=== PATIENT | female | born 1955 | race Caucasian/White ===

== ENCOUNTER 2017-09-23 11:52 | Outpatient (RCR) | payer OTHER, SELFPAY | END 2017-09-23 19:00 | LOC: PT 11:52 | PROVIDERS: Family Provider Family Medicine; PCP Family Medicine; Visit Provider Neurological Surgery | DX: R69 Illness, unspecified (principal) ==

== ENCOUNTER → 2017-11-30 10:29 | Outpatient (CLI) | payer OTHER, SELFPAY ==
--- NOTE | 2017-11-30 10:32 | HPBI_ITS ---
MAMMOGRAPHY - BILATERAL SCREENING REASON FOR EXAM: Female, 62 years old. Routine annual screening examination. PERTINENT HISTORY: Non-contributory. TECHNIQUE: Digital bilateral breast maria g (3D mammographic acquisition) in the CC and MLO projections. 2-D mediolateral oblique (MLO) and craniocaudad (CC) views of both breasts were obtained. CAD: Full Field Digital Mammography with Computer Added Detection was performed. COMPARISON: Comparison is made with prior study dated November 26, 2016 and October 09, 2015. FINDINGS: Breast Composition: There are scattered areas of fibroglandular density. There are no dominant masses or suspicious calcifications. No other significant abnormalities are identified. There has been no significant change since the prior study. HPBI/SCREENING MAMM (CAD), BILAT IMPRESSION: Stable bilateral screening mammogram. Yearly follow-up mammogram recommended. (A) ASSESSMENT CATEGORY: BIRADS Category 1: Negative. A letter regarding these results will be sent to the patient by the facility within 30 days. Approximately 10% of breast cancers are not detected by mammography. A normal mammogram should not delay biopsy of a clinically suspicious abnormality. [id number] Electronically Signed: Ej Brooks MD at 14:07 EDT Tel [phone], Service support ,
== END ==
PROVIDERS: Family Provider Family Medicine; PCP Family Medicine; Visit Provider Obstetrics & Gynecology
DX: Z12.31 Encounter for screening mammogram for malignant neoplasm of breast (principal)
CPT/HCPCS: 77063; 77067

== ENCOUNTER → 2017-12-15 18:39 | Outpatient (CLI) | payer OTHER, SELFPAY | PROVIDERS: Family Provider Family Medicine; PCP Family Medicine; Visit Provider Urology | DX: R82.99 Other abnormal findings in urine (principal) | CPT/HCPCS: 87086; 87088 ==

== ENCOUNTER → 2018-02-22 09:40 | Outpatient (CLI) | payer OTHER, SELFPAY ==
--- NOTE | 2018-02-22 09:40 | DT_ITS ---
This patient was seen during an EMR downtime February 15, 2018 - February 22, 2018. This patient may have a combination of paper and electronic documentation or all paper documentation. All documentation is viewable within the e-chart portion of [facility] for each patient visit.
[2018-02-22 12:47] LABS: Anion Gap 11 (5-15); BUN 15 mg/dL (7-18); BUN/Creat Ratio 15.5 RATIO (10-20); Calcium,Total 9.1 mg/dL (8.5-10.1); Chloride 106 mmol/L (98-107); Cholesterol 163 mg/dL (200); Creatinine, Serum 0.97 mg/dL (0.55-1.02); EST Glomerular Filtration Rate 62 mL/min (>60); Est Glom Filt Rate - Afr Amer 75 mL/min (>60); Glucose 166 mg/dL (74-106); Hemoglobin A1c 7.3 % (4.2-6.3); High Density Lipoprotein 45 mg/dL; Sodium Level 143 mmol/L (136-145); Triglycerides 154 mg/dL; Very Low Density Lipoprotein 31 mg/dL (5-40)
== END ==
PROVIDERS: Family Provider Family Medicine; PCP Family Medicine; Visit Provider Family Medicine
DX: I10 Essential (primary) hypertension (principal); E11.9 Type 2 diabetes mellitus without complications; E78.5 Hyperlipidemia, unspecified
CPT/HCPCS: 36415; 80048; 80061; 83036

== ENCOUNTER → 2018-08-27 08:06 | Outpatient (CLI) | payer OTHER, SELFPAY ==
[2018-08-27 10:32] LABS: Cholesterol 164 mg/dL (200); Glucose 175 mg/dL (74-106); High Density Lipoprotein 50 mg/dL; Triglycerides 126 mg/dL; Very Low Density Lipoprotein 25 mg/dL (5-40)
[2018-08-27 10:39] LABS: Hemoglobin A1c 7.7 % (4.2-6.3)
--- OUTSIDE RECORDS SUMMARY | 2018-10-12 19:43 | XMS RPT_ITS ---
:1955 Author Organization [facility] Care Team Providers Name Role Phone REGINO BUSH Admitting Unavailable REGINO BUSH Attending Unavailable RUTHY SOLER ([facility]) Referring Unavailable RUTHY SOLER ([facility]) Referring Unavailable REGINO BUSH Referring Unavailable Regino Bush Attending Unavailable PROVIDER, UNKNOWN Referring Unavailable Micah Pratt Primary Care Unavailable MICHOACANO PORTILLO Attending Unavailable MICHOACANO PORTILLO Referring Unavailable REGINO BUSH Referring Unavailable MICHOACANO PORTILLO Attending Unavailable MICAH PRATT Referring Unavailable iMcah Pratt Attending Unavailable Micah Pratt Primary Care Unavailable Ray Hagen Attending Unavailable Micah Pratt Primary Care Unavailable Sunny Cantor Attending Unavailable Micah Pratt Primary Care Unavailable Micah Pratt Attending Unavailable Micah Pratt Primary Care Unavailable PROBLEMS PROBLEMS DATE TYPE CONDITION / CODE ATTENDING STATUS SOURCE 03/11/2018 Unknown I10 - Essential Micah Pratt Active [place] (primary) [facility] hypertension / Hospital I10(ICD-10) Repository 01/05/2018 Admitting Cervical disc Regino Bush Active [facility] Diagnosis disorder w [facility] cervical region / M50.10(ICD-10) 12/03/2017 Active Low back pain / REGINO BUSH Active [facility] M54.5(ICD-10) Clinic Other [place] Repository 11/30/2017 Active Encounter for other NA Active [facility] preprocedural Clinic Other examination / [facility] Z01.818(ICD-10) Repository 11/30/2017 Active Hyperlipidemia, NA Active [facility] unspecified / Clinic Other E78.5(ICD-10) [facility] Repository 11/30/2017 Active Type 2 diabetes NA Active [facility] mellitus with Clinic Other unspecified [facility] complications / Repository E11.8(ICD-10) 10/13/2017 Active Moderate persistent NA Active [facility] asthma, Clinic Other uncomplicated / [facility] J45.40(ICD-10) Repository 11/30/2017 Active Unspecified NA [facility] complication of Clinic Other internal prosthetic [facility] device, implant and Repository graft, subsequent encounter / T85.9XXD(ICD-10) 11/30/2017 Active Essential (primary) NA Active [facility] hypertension / Clinic Other I10(ICD-10) [facility] Repository 11/30/2017 Active Unknown / NA Active [facility] UNK(Unknown) Clinic Other [facility] Repository PROCEDURES PROCEDURES No Procedure Records FoundRESULTS RESULTS LIPID PROFILE Collected: 08/27/2018 Status: F Source: [place] 8:07 AM [facility] REPOSITORY TYPE CODE TESTS RESULT OUT OF RANGE REFERENCE UNITS LAB L501.4900 200 mg/dL Normal CHOL 164 Result Comment: <200 mg/dL Desirable 200-240 mg/dL Borderline >240 mg/dL High Risk LAB L501.5000 mg/dL Normal TRIG 126 Result Comment: The drugs N-Acetylcysteine and Metamizole may falsely depress this assay. Serum Triglycerides Reference Interval Normal <150 mg/dL Borderline high 150 - 199 mg/dL High 200 - 499 mg/dL Very High > or = 500 mg/dL LAB L501.6400 mg/dL Normal HDL 50 Result Comment: The drugs N-Acetylcysteine and Metamizole may falsely depress this assay. Reference Range HDL <40 mg/dL Low HDL Cholesterol HDL >or= 60 mg/dL High HDL Cholesterol LAB L501.6500 0-130 mg/dL Normal LDL 89 LAB L501.6600 5-40 mg/dL Normal VLDL 25 Performed By: #### L500.4100, L501.0100, L501.9985 #### [facility] [address] [place], [address] GLUCOSE Collected: 08/27/2018 Status: F Source: [place] 8:[address] [facility] REPOSITORY TYPE CODE TESTS RESULT OUT OF RANGE REFERENCE UNITS LAB L501.0100 74-106 mg/dL High GLU 175 Result Comment: Fasting Glucose result greater than or equal to 126 mg/dL suggests DIABETES MELLITUS per A.D.A. criteria. Please note revised GLUCOSE reference range effective 2017. Performed By: #### L500.4100, L501.0100, L501.9985 #### [facility] [address] [place], [place], [address] HEMOGLOBIN A1C Collected: 08/27/2018 Status: F Source: [place] 8:[address] [facility] REPOSITORY TYPE CODE TESTS RESULT OUT OF RANGE REFERENCE UNITS LAB L501.9985 4.2-6.3 % High HGB A1C 7.7 Performed By: #### L500.4100, L501.0100, L501.9985 #### [facility] [address] [place], [address] CNOV Observed: 07/28/2018 Status: COMPLETED Source: [place] 10:00 AM [facility] REPOSITORY Office Visit ([facility]) JOI SAUCEDA ([id number]) 1955 F Date Time Provider Department 07/28/18 10:00 AM MICHOACANO PORTILLO [facility] During your visit today, we recorded the following information about you: Pulse Respiration Blood pressure Weight 88/minute 14/minute 138/57 74.8 kg Height 1.626 m Michoacano Portillo MD 07/28/2018 12:28 PM Signed Subjective HPI HISTORY OF PRESENT ILLNESS: Joi Sauceda is a 63 year old female, Here today for F/U asthma and SUMA. She stopped using her CPAP in the fall of 2016. Claimed since starting a supplement called Plexus she lost inches/wt and was no longer snoring. For her asthma she is on Symbicort 160mcg and Singulair. This weather has been getting her asthma a little stirred up. ASTHMA CONTROL TEST Date: 07/26/2018 1. In the last 4 weeks, how much of the time did your asthma keep you from getting as much done at work or home that you wanted to do? A little of the time (4) 2. In the last 4 weeks, how often have you had shortness of breath? Once or twice per week (4) 3. In the last 4 weeks, how often did your asthma symptoms (wheezing, coughing, shortness of breath, chest tightness or pain) wake you up at night or earlier than usual? Once or twice (4) 4. In the last 4 weeks, how often have you used your rescue inhaler or nebulizer medication (such as Albuterol, Proventil, Ventolin, Maxair, Xoponex, or Primatene Mist)? Not at all (5) 5. In the last 4 weeks, how would you rate your asthma control? Well controlled (4) Total: 21 Review of Systems Respiratory: See ACT scores. Cardiovascular: Slight costochondritis along her left sternal border. She had the same symptoms this time of year last year. All other systems reviewed and are negative. PAST MEDICAL HISTORY Diagnosis Date - Abnormal Papanicolaou smear of vagina and vaginal HPV - Asthma - GERD (gastroesophageal reflux disease) - HLD (hyperlipidemia) - HTN (hypertension) - Mitral valve disorders(424.0) - SUMA on CPAP - Other chest pain - Other malaise and fatigue - PMH - PAST MEDICAL HISTORY OF ELEVATED LIPIDS - PMH - PAST MEDICAL HISTORY OF Irregular Heartbeat - Shortness of breath PAST SURGICAL HISTORY Procedure Laterality Date - APPENDECTOMY - BACK SURGERY HX 2000, 2003, 2004 spinal fusion - BLADDER SURGERY HX 12/2015 adjust bladder sling - COLONOSCOPY 2007 - COLPOSCOPY (VAGINOSCOPY) 2002 - ENDOMETRIAL BIOPSY 2002 - LIGATE FALLOPIAN TUBE Tubal ligation - REMOVAL OF TONSILS,<12 Y/O Tonsillectomy - SPINAL CORD STIM PERCT SCS ELCT 2001 - TOTAL ABDOM HYSTERECTOMY 02/2015 w/bladder sling FAMILY HISTORY Problem Relation Age of Onset - Heart Mother Pace Maker/Irregular Heartbeat - Hypertension Mother - Heart Father - Hypertension Father - Lipids Father High Cholesterol - Hypertension Brother Social History Marital status: Spouse name: MICAH Years of education: 12 Number of children: 3 Occupational History Occupation Employer Comment [employer] * Social History Main Topics Smoking status: Never Smoker Smokeless tobacco: Never Used Alcohol use: No Drug use: No Sexual activity: Yes Partners with: Male control/protection: Surgical Comment: bilateral tubal ligation Current Meds MEDICATION, NON-DATABASE Take 1 tablet by mouth once daily. Vitalbiome MEDICATION, NON-DATABASE Take 1 Each by mouth once daily. Slim CALCIUM CITRATE/VITAMIN D3 (CITRACAL + D ORAL) Take 1 tablet by mouth twice daily. MEDICATION, NON-DATABASE Take 2 capsules by mouth daily at bedtime. Biocleanse TRIAMCINOLONE ACETONIDE (NASACORT NASAL) Use 1 Muse in the nose once daily. montelukast (SINGULAIR) 10 mg tablet Take 1 tablet by mouth once daily. budesonide-formoterol (SYMBICORT) 160-4.5 mcg/actuation inhaler Inhale 2 Puffs as instructed twice daily. Mucus Clearing Device (FLUTTER) brittaney 1 Device losartan (COZAAR) 50 mg tablet Take 50 mg by mouth once daily. albuterol HFA (PROAIR HFA) 90 mcg/actuation inhaler Inhale 2 Puffs as instructed every 4 hours as needed. glimepiride (AMARYL) 4 mg tablet Take 4 mg by mouth daily with breakfast. labetalol (TRANDATE) 300 mg tablet Take 150 mg by mouth twice daily. Flaxseed Oil 1,000 mg cap Take 1,000 mg by mouth twice daily. atorvastatin 20 mg tablet Take 20 mg by mouth once daily. THERAPEUTIC MULTIVITAMIN TAB Take one(1) tablet daily. TRIAMTERENE-HYDROCHLOROTHIAZID 37.5 MG-25 MG TAB Take one(1) tablet daily. Objective 07/28/18 1004 BP: 138/57 BP Site: Left Arm BP Position: Sitting BP Cuff Size: Large Adult Pulse: 88 Resp: 14 SpO2: 99% Weight: 74.8 kg (165 lb) Height: 162.6 cm (5' 4) Physical Exam Constitutional: She is oriented to person, place, and time and well-developed, well-nourished, and in no distress. No distress. HENT: Head: Normocephalic. Mouth/Throat: Oropharynx is clear and moist. No oropharyngeal exudate. Eyes: Right eye exhibits no discharge. Left eye exhibits no discharge. No scleral icterus. Neck: No JVD present. No tracheal deviation present. No thyromegaly present. Cardiovascular: Normal rate, regular rhythm and intact distal pulses. Exam reveals no gallop and no friction rub. No murmur heard. Pulmonary/Chest: Effort normal and breath sounds normal. No stridor. No respiratory distress. She has no wheezes. She has no rales. Abdominal: Soft. Bowel sounds are normal. She exhibits no distension. There is no tenderness. Musculoskeletal: Normal range of motion. She exhibits no edema, tenderness or deformity. Neurological: She is alert and oriented to person, place, and time. Gait normal. GCS score is 15. Skin: Skin is warm and dry. No rash noted. She is not diaphoretic. No erythema. No pallor. Psychiatric: Mood and affect normal Spirometry 2014 FVC 2.8 L ?83% FEV1 1.6 L ?61% Ratio 57 IMMUNIZATIONS Prevnar 13 - 06/12/2016 Pneumovax 23 - Influenza - 07/28/2018 ASSESSMENT/PLAN: 1. Moderate persistent asthma without complication - ICD9: 493.90, ICD10: J45.40 (primary diagnosis) Moderate persistent Asthma stable - Continue current meds - Avoidance of triggers recommended - INFLUENZA VACCINE QUADRIVALENT AGE 3 YRS PLUS + IM - SPIROMETRY - BASELINE AND POST DILATOR - LUNG DIFFUSION CAPACITY (DLCO) - LUNG VOLUMES 2. SUMA (obstructive sleep apnea) - ICD9: 327.23, ICD10: G47.33 - Patient feels that she no longer has to wear her CPAP mask because she has lost inches. - Patient agreeable to consider PSG/ split night test next visit to confirm if SUMA is truly resolved. MD Ashley Smith Ma 07/28/2018 10:11 AM Signed How likely are you to doze off or fall asleep in the following situations, in contrast to feeling just tired? Situation Sitting and reading 1 = Slight chance of dozing Watching TV 1 = Slight chance of dozing Sitting, inactive in a public place (e.g. a theatre or a meeting) 0 = Would never doze As a passenger in a car for an hour without a break 1 = Slight chance of dozing Lying down to rest in the afternoon when circumstances permit 1 = Slight chance of dozing Sitting and talking to someone 0 = Would never doze Sitting quietly after a lunch without alcohol 0 = Would never doze In a car, while stopped for a few minutes in traffic 0 = Would never doze Total: 4 ASTHMA CONTROL TEST (2007 - ) 07/28/2018 ASTHMA WORK (2007) 4 A LITTLE OF THE TIME ASTHMA SOB (2007) 4 ONCE OR TWICE A WEEK ASTHMA SLEEP (2007) 4 ONCE OR TWICE ASTHMA MED (2007) 5 NOT AT ALL ASTHMA CONTROL (2007) 4 WELL CONTROLLED ACT TOTAL SCORE 21 Referring Provider: MICAH PRATT [[id number]] Allergies As of Date: 07/28/2018 Noted Allergy Reaction MORPHINE 08/28/2005 2 - Rash steroids [Other] 08/28/2005 2 - Rash zesteretic [Other] 08/28/2005 4 - Hives Date Reviewed: 07/28/2018 Reviewed by: Ashley Cohn Ma - Fully Assessed Reason for Visit: Asthma [11] Sleep Apnea [1361] Primary Visit Diagnosis:Moderate persistent asthma without complication [J45.40] Other Visit Diagnosis:SUMA (obstructive sleep apnea) [G47.33] Order(s):INFLUENZA VACCINE QUADRIVALENT AGE 3 YRS PLUS + IM [28137HEO] Order #: [id number] SPIROMETRY - BASELINE AND POST DILATOR [8411663] Order #: [id number] FUTURE LUNG DIFFUSION CAPACITY (DLCO) [[id number]] Order #: [id number] FUTURE LUNG VOLUMES [4465560] Order #: [id number] FUTURE Prescriptions as of 07/28/2018 Sig: MEDICATION, NON-DATABASE Take 1 tablet by mouth once d* MEDICATION, NON-DATABASE Take 1 Each by mouth once rosalinda* CITRACAL + D ORAL Take 1 tablet by mouth twice * MEDICATION, NON-DATABASE Take 2 capsules by mouth jamin* NASACORT NASAL Use 1 Muse in the nose once * MONTELUKAST 10 MG TABLET Take 1 tablet by mouth once d* BUDESONIDE-FORMOTEROL HFA 160* Inhale 2 Puffs as instructed * MUCUS CLEARING DEVICE 1 Device LOSARTAN 50 MG TABLET Take 50 mg by mouth once jamin* ALBUTEROL SULFATE HFA 90 MCG/* Inhale 2 Puffs as instructed * GLIMEPIRIDE 4 MG TABLET Take 4 mg by mouth daily with* LABETALOL 300 MG TABLET Take 150 mg by mouth twice da* FLAXSEED OIL 1,000 MG CAPSULE Take 1,000 mg by mouth twice * ATORVASTATIN 20 MG TABLET Take 20 mg by mouth once jamin* * THERAPEUTIC MULTIVITAMIN TABL* Take one(1) tablet daily. * TRIAMTERENE 37.5 MG-HYDROCHLO* Take one(1) tablet daily. Problem List As Of Date 07/28/2018 Noted Resolved Shortness of breath [R06.02] 11/30/2017 Other malaise and fatigue [R53.81, R53.83] 11/30/2017 Other chest pain [R07.89] 11/30/2017 Unspecified asthma(493.90) [J45.909] INVALID FOR*11/30/2017 Cystocele [OGR0941] INVALID FOR*11/30/2017 HTN (hypertension) [I10] INVALID FOR* Moderate persistent asthma without complication*INVALID FOR* SUMA (obstructive sleep apnea) [G47.33] INVALID FOR* Type 2 diabetes mellitus with complication (HCC* HLD (hyperlipidemia) [E78.5] Mitral valve prolapse [I34.1] Acute back pain [M54.9] INVALID FOR* Visit Notes: >> Ashley Cohn Ma ThuJul 28, 2018 10:07 AM Status: Signed How likely are you to doze off or fall asleep in the following situations, in contrast to feeling just tired? Situation Sitting and reading 1 = Slight chance of dozing Watching TV 1 = Slight chance of dozing Sitting, inactive in a public place (e.g. a theatre or a meeting) 0 = Would never doze As a passenger in a car for an hour without a break 1 = Slight chance of dozing Lying down to rest in the afternoon when circumstances permit 1 = Slight chance of dozing Sitting and talking to someone 0 = Would never doze Sitting quietly after a lunch without alcohol 0 = Would never doze In a car, while stopped for a few minutes in traffic 0 = Would never doze Total: 4 ASTHMA CONTROL TEST (2007 - ) 07/28/2018 ASTHMA WORK (2007) 4 A LITTLE OF THE TIME ASTHMA SOB (2007) 4 ONCE OR TWICE A WEEK ASTHMA SLEEP (2007) 4 ONCE OR TWICE ASTHMA MED (2007) 5 NOT AT ALL ASTHMA CONTROL (2007) 4 WELL CONTROLLED ACT TOTAL SCORE 21 Disposition: Return in about 6 months (around 01/25/2019) for Asthma. Follow-up and Disposition History Recorded Questionnaire: ASTHMA CONTROL TEST Last 4 weeks, your asthma limited your activity at work or home: -> 4 A LITTLE OF THE TIME Past 4 weeks, how often have you had shortness of breath? -> 4 ONCE OR TWICE A WEEK Past 4 weeks: Asthma symptoms woke you at night or earlier than usual? -> 4 ONCE OR TWICE Past 4 weeks: How often did you use rescue inhaler or nebulizer med? -> 5 NOT AT ALL Rate your Asthma Control during the past 4 weeks: -> 4 WELL CONTROLLED ACT TOTAL SCORE: -> 21 Letter Text Encounter Status:Closed by MICHOACANO PORTILLO MD on 07/28/18 PROGRESS Observed: 07/26/2018 Status: COMPLETED Source: [place] 11:29 AM [facility] REPOSITORY [facility] ID: [id number] Author: Michoacano Portillo Service: (none) Author Type: Physician Type: Progress Notes Filed: 07/28/2018 12:28 PM Note Text: Subjective HPI HISTORY OF PRESENT ILLNESS: Joi Sauceda is a 63 year old female, Here today for F/U asthma and SUMA. She stopped using her CPAP in the fall of 2016. Claimed since starting a supplement called Plexus she lost inches/wt and was no longer snoring. For her asthma she is on Symbicort 160mcg and Singulair. This weather has been getting her asthma a little stirred up. ASTHMA CONTROL TEST Date: 07/26/2018 1. In the last 4 weeks, how much of the time did your asthma keep you from getting as much done at work or home that you wanted to do? A little of the time (4) 2. In the last 4 weeks, how often have you had shortness of breath? Once or twice per week (4) 3. In the last 4 weeks, how often did your asthma symptoms (wheezing, coughing, shortness of breath, chest tightness or pain) wake you up at night or earlier than usual? Once or twice (4) 4. In the last 4 weeks, how often have you used your rescue inhaler or nebulizer medication (such as Albuterol, Proventil, Ventolin, Maxair, Xoponex, or Primatene Mist)? Not at all (5) 5. In the last 4 weeks, how would you rate your asthma control? Well controlled (4) Total: 21 Review of Systems Respiratory: See ACT scores. Cardiovascular: Slight costochondritis along her left sternal border. She had the same symptoms this time of year last year. All other systems reviewed and are negative. PAST MEDICAL HISTORY Diagnosis Date - Abnormal Papanicolaou smear of vagina and vaginal HPV - Asthma - GERD (gastroesophageal reflux disease) - HLD (hyperlipidemia) - HTN (hypertension) - Mitral valve disorders(424.0) - SUMA on CPAP - Other chest pain - Other malaise and fatigue - PMH - PAST MEDICAL HISTORY OF ELEVATED LIPIDS - PMH - PAST MEDICAL HISTORY OF Irregular Heartbeat - Shortness of breath PAST SURGICAL HISTORY Procedure Laterality Date - APPENDECTOMY - BACK SURGERY HX 2000, 2003, 2004 spinal fusion - BLADDER SURGERY HX 12/2015 adjust bladder sling - COLONOSCOPY 2007 - COLPOSCOPY (VAGINOSCOPY) 2002 - ENDOMETRIAL BIOPSY 2002 - LIGATE FALLOPIAN TUBE Tubal ligation - REMOVAL OF TONSILS,<12 Y/O Tonsillectomy - SPINAL CORD STIM PERCT SCS ELCT 2001 - TOTAL ABDOM HYSTERECTOMY 02/2015 w/bladder sling FAMILY HISTORY Problem Relation Age of Onset - Heart Mother Pace Maker/Irregular Heartbeat - Hypertension Mother - Heart Father - Hypertension Father - Lipids Father High Cholesterol - Hypertension Brother Social History Marital status: Spouse name: MICAH Years of education: 12 Number of children: 3 Occupational History Occupation Employer Comment [employer] * Social History Main Topics Smoking status: Never Smoker Smokeless tobacco: Never Used Alcohol use: No Drug use: No Sexual activity: Yes Partners with: Male control/protection: Surgical Comment: bilateral tubal ligation Current Meds MEDICATION, NON-DATABASE Take 1 tablet by mouth once daily. Vitalbiome MEDICATION, NON-DATABASE Take 1 Each by mouth once daily. Slim CALCIUM CITRATE/VITAMIN D3 (CITRACAL + D ORAL) Take 1 tablet by mouth twice daily. MEDICATION, NON-DATABASE Take 2 capsules by mouth daily at bedtime. Biocleanse TRIAMCINOLONE ACETONIDE (NASACORT NASAL) Use 1 Muse in the nose once daily. montelukast (SINGULAIR) 10 mg tablet Take 1 tablet by mouth once daily. budesonide-formoterol (SYMBICORT) 160-4.5 mcg/actuation inhaler Inhale 2 Puffs as instructed twice daily. Mucus Clearing Device (FLUTTER) brittaney 1 Device losartan (COZAAR) 50 mg tablet Take 50 mg by mouth once daily. albuterol HFA (PROAIR HFA) 90 mcg/actuation inhaler Inhale 2 Puffs as instructed every 4 hours as needed. glimepiride (AMARYL) 4 mg tablet Take 4 mg by mouth daily with breakfast. labetalol (TRANDATE) 300 mg tablet Take 150 mg by mouth twice daily. Flaxseed Oil 1,000 mg cap Take 1,000 mg by mouth twice daily. atorvastatin 20 mg tablet Take 20 mg by mouth once daily. THERAPEUTIC MULTIVITAMIN TAB Take one(1) tablet daily. TRIAMTERENE-HYDROCHLOROTHIAZID 37.5 MG-25 MG TAB Take one(1) tablet daily. Objective 07/28/18 1004 BP: 138/57 BP Site: Left Arm BP Position: Sitting BP Cuff Size: Large Adult Pulse: 88 Resp: 14 SpO2: 99% Weight: 74.8 kg (165 lb) Height: 162.6 cm (5' 4) Physical Exam Constitutional: She is oriented to person, place, and time and well-developed, well-nourished, and in no distress. No distress. HENT: Head: Normocephalic. Mouth/Throat: Oropharynx is clear and moist. No oropharyngeal exudate. Eyes: Right eye exhibits no discharge. Left eye exhibits no discharge. No scleral icterus. Neck: No JVD present. No tracheal deviation present. No thyromegaly present. Cardiovascular: Normal rate, regular rhythm and intact distal pulses. Exam reveals no gallop and no friction rub. No murmur heard. Pulmonary/Chest: Effort normal and breath sounds normal. No stridor. No respiratory distress. She has no wheezes. She has no rales. Abdominal: Soft. Bowel sounds are normal. She exhibits no distension. There is no tenderness. Musculoskeletal: Normal range of motion. She exhibits no edema, tenderness or deformity. Neurological: She is alert and oriented to person, place, and time. Gait normal. GCS score is 15. Skin: Skin is warm and dry. No rash noted. She is not diaphoretic. No erythema. No pallor. Psychiatric: Mood and affect normal Spirometry 2014 FVC 2.8 L ?83% FEV1 1.6 L ?61% Ratio 57 IMMUNIZATIONS Prevnar 13 - 06/12/2016 Pneumovax 23 - Influenza - 07/28/2018 ASSESSMENT/PLAN: 1. Moderate persistent asthma without complication - ICD9: 493.90, ICD10: J45.40 (primary diagnosis) Moderate persistent Asthma stable - Continue current meds - Avoidance of triggers recommended - INFLUENZA VACCINE QUADRIVALENT AGE 3 YRS PLUS + IM - SPIROMETRY - BASELINE AND POST DILATOR - LUNG DIFFUSION CAPACITY (DLCO) - LUNG VOLUMES 2. SUMA (obstructive sleep apnea) - ICD9: 327.23, ICD10: G47.33 - Patient feels that she no longer has to wear her CPAP mask because she has lost inches. - Patient agreeable to consider PSG/ split night test next visit to confirm if SUMA is truly resolved. Michoacano Portillo MD DOWNTIME REPORT Observed: 03/04/2018 Status: F Source: [place] 2:[address] [facility] REPOSITORY [facility] Medical Records Department [address] [place] [address] Downtime Report MR#: [id number] Acct: [id number] Name: JOI SAUCEDA Rep #: [id number] : 1955 63 From: Jasiel Pratt PCP: Micah Pratt MD Status: REG CLI This patient was seen during an EMR downtime February 15, 2018 - February 22, 2018. This patient may have a combination of paper and electronic documentation or all paper documentation. All documentation is viewable within the e-chart portion of [employer] for each patient visit. HEMOGLOBIN A1C Collected: 02/22/2018 Status: F Source: [place] 9:[address] [facility] REPOSITORY TYPE CODE TESTS RESULT OUT OF RANGE REFERENCE UNITS LAB L501.9985 4.2-6.3 % High HGB A1C 7.3 Performed By: #### L501.9985 #### [facility] [address] [place], [place], [id number] BASIC METABOLIC Collected: 02/22/2018 Status: F Source: [place] PROFILE (BMP) 9:[address] [facility] REPOSITORY TYPE CODE TESTS RESULT OUT OF RANGE REFERENCE UNITS LAB L501.0100 74-106 mg/dL High GLU 166 Result Comment: Fasting Glucose result greater than or equal to 126 mg/dL suggests DIABETES MELLITUS per A.D.A. criteria. Please note revised GLUCOSE reference range effective 2017. LAB L501.1000 7-18 mg/dL Normal BUN 15 LAB L501.1100 0.55-1.02 mg/dL Normal CREAT,SERUM 0.97 Result Comment: The validity of the calculated GFR AND GFRAA in patients over 70 years has not been determined. Clinical correlation is essential. LAB L501.1110 >60 mL/min Normal EST GFR 62 Result Comment: Non- GFR Calc LAB L501.1115 >60 mL/min Normal EST GFR - AA 75 Result Comment: GFR Calc LAB L501.1300 10-20 RATIO Normal BUN/CRE 15.5 LAB L501.2200 8.5-10.1 mg/dL CA Normal 9.1 LAB L501.5300 136-145 mmol/L NA Normal 143 LAB L501.5600 3.5-5.1 mmol/L K Normal 4.0 LAB L501.5900 98-107 mmol/L CL Normal 106 LAB L501.6100 21.0-32.0 mmol/L Normal CO2 26.0 LAB L501.6200 5-15 Normal GAP 11 Performed By: #### L500.2500, L500.4100 #### [facility] [address] [place], [place], [address] LIPID PROFILE Collected: 02/22/2018 Status: F Source: [place] 9:[address] [facility] REPOSITORY TYPE CODE TESTS RESULT OUT OF RANGE REFERENCE UNITS LAB L501.4900 200 mg/dL Normal CHOL 163 Result Comment: <200 mg/dL Desirable 200-240 mg/dL Borderline >240 mg/dL High Risk LAB L501.5000 mg/dL Normal TRIG 154 Result Comment: The drugs N-Acetylcysteine and Metamizole may falsely depress this assay. Serum Triglycerides Reference Interval Normal <150 mg/dL Borderline high 150 - 199 mg/dL High 200 - 499 mg/dL Very High > or = 500 mg/dL LAB L501.6400 mg/dL Normal HDL 45 Result Comment: The drugs N-Acetylcysteine and Metamizole may falsely depress this assay. Reference Range HDL <40 mg/dL Low HDL Cholesterol HDL >or= 60 mg/dL High HDL Cholesterol LAB L501.6500 0-130 mg/dL Normal LDL 87 LAB L501.6600 5-40 mg/dL Normal VLDL 31 Performed By: #### L500.2500, L500.4100 #### [facility] [address] [place], [address] CR SPINE LUMBOSACRAL 2 Observed: 01/06/2018 Status: F Source: [employer] OR 3 VIEWS 3:42 AM SYSTEM REPOSITORY Patient Name: JOI SAUCEDA Diagnostic Radiology Exam Date/Time 01/05/2018 16:01:55 EDT Exam CR Spine Lumbosacral 2 or 3 Views Ordering Physician REGINO BUSH Accession Number [id number] CPT4 Codes 01449 () Reason For Exam radiculopathy stenosis Report HISTORY:lumbar stenosis radiculopathy prior surgery x3 Lateral flexion-extension of the lumbar spine show severe degenerative disc disease at L3-L4 and L1-L2 with disc space narrowing and marginal osteophyte formation. There has been extensive prior surgery with laminectomy from L2-L3 to the L4-L5 level with lateral fusion bone. Moderate aortic vascular calcification Report Dictated on Workstation: [id number] Final Dictated: 01/06/2018 3:42 am Dictating Physician: MD PURI WILLIAM Signed Date and Time: 01/06/2018 3:44 am Signed by: MD PURI WILLIAM Transcribed Date and Time: 01/06/2018 3:42 MRI SPINE LUMBAR W/O Observed: 01/06/2018 Status: F Source: [employer] CONTRAST 3:36 AM SYSTEM REPOSITORY Patient Name: JOI SAUCEDA MRI Exam Date/Time 01/05/2018 15:55:01 EDT Exam MRI Spine Lumbar w/o Contrast Ordering Physician MICHAELAALLIE REGINO J Accession Number [id number] CPT4 Codes 18368 () Reason For Exam radiculopathy stenosis Report Reasons for examination: Back pain and radiculopathy There is normal alignment of the lumbar vertebral bodies on the sagittal images (report assumes 5 lumbar vertebral bodies). The marrow space signal intensity is normal except for degenerative/reactive type changes. The conus appears normal. Prior laminectomy and fusion from L2 to L4-L5 At T12-L1, the disc is normal. At L1-2, there is a large left-sided posterior protrusion extending to neuroforamen without central canal stenosis At L2-3, the disc is normal except for mild bulging to left greater than right without stenosis. At L3-L4, disc is degenerated and bulging with prior laminectomy with no central canal stenosis with moderate left foraminal narrowing and milder right foraminal narrowing At L4-5, there is mild annular bulging with prior laminectomy. There is no central canal and no foraminal stenosis. At L5-S1, there is mild annular bulging. There is no central canal and no foraminal stenosis IMPRESSION: Degenerative disc disease as discussed throughout the lumbar spine status post prior surgery x3 with long laminectomy and fusions from L2-L3 to L4-L5. Report Dictated on Workstation: [id number] Final Dictated: 01/06/2018 3:36 am Dictating Physician: MD PURI WILLIAM Signed Date and Time: 01/06/2018 3:42 am Signed by: MD PURI WILLIAM Transcribed Date and Time: 01/06/2018 3:36 CR SPINE CERVICAL 2 Observed: 01/06/2018 Status: F Source: [employer] OR 3 VIEWS 3:34 AM SYSTEM REPOSITORY Patient Name: JOI SAUCEDA Diagnostic Radiology Exam Date/Time 01/05/2018 16:01:33 EDT Exam CR Spine Cervical 2 or 3 Views Ordering Physician REGINO BUSH Accession Number [id number] CPT4 Codes 61518 () Reason For Exam radiculopathy stenosis Report HISTORY: Neck pain Lateral flexion-extension views show very minimal degenerative changes lower cervical spine with good preservation of disc space height Report Dictated on Workstation: [id number] Final Dictated: 01/06/2018 3:34 am Dictating Physician: MD PURI WILLIAM Signed Date and Time: 01/06/2018 3:35 am Signed by: MD PURI WILLIAM Transcribed Date and Time: 01/06/2018 3:34 MRI SPINE CERVICAL Observed: 01/06/2018 Status: F Source: [employer] W/O CONTRAST 3:32 AM SYSTEM REPOSITORY Patient Name: JOI SAUCEDA MRI Exam Date/Time 01/05/2018 15:19:42 EDT Exam MRI Spine Cervical w/o Contrast Ordering Physician REGINO BUSH Accession Number [id number] CPT4 Codes 95571 () Reason For Exam radiculopathy stenosis Report Reasons for examination: Neck pain with radiculopathy. Sagittal T1 and T2 weighted images of the cervical spine and axial gradient echo scans were performed. There is normal alignment of the cervical vertebral bodies on the sagittal images. The marrow space signal intensity is normal. The craniocervical junction and C1-2 junction appear normal. The brain stem and cervical spinal cord appear normal. At C2-3, the disc is normal. There is no significant central canal stenosis. At C3-4, the disc is normal. There is no central canal stenosis. At C4-5, the disc is normal for age. There is no central canal stenosis. At C5-6, the disc is minimally bulging . There is no central canal stenosis. There is no cord impingement. At C6-7, the disc is minimally bulging. There is no central canal stenosis. There is no cord impingement. At C7-T1, the disc is normal. There is no central canal stenosis. IMPRESSION: Degenerative disc disease with minimal disc bulging lower cervical spine without cord impingement or compression as discussed above . Report Dictated on Workstation: [id number] Final Dictated: 01/06/2018 3:32 am Dictating Physician: MD PURI WILLIAM Signed Date and Time: 01/06/2018 3:34 am Signed by: MD PURI WILLIAM Transcribed Date and Time: 01/06/2018 3:32 Observed: 12/15/2017 Status: F Source: [place] CULTURE, URINE 1:[address] [facility] REPOSITORY Urine Culture ORGANISM 1: Mixed Gram Pos AND Gram Neg Org Hinkley Count <1000 MIX CULTURE Mixed contaminants. Submit a new specimen if indicated. Performed By: #### M100.0650 #### [facility] [address] [place], [address] NURSING PROG Observed: 12/03/2017 Status: COMPLETED Source: [place] 5:15 PM [facility] REPOSITORY HNO ID: [id number] Author: Luz Elena ChoRn) YOANNA Torres Service: Nursing Author Type: Registered Nurse Type: Nursing Progress Note Filed: 12/04/2017 3:27 PM Note Text: Post op call completed. Patient reporting 7/10 pain. Instructed to notify Dr. Bush's office for any concerns with pain management. NURSING PROG Observed: 12/03/2017 Status: COMPLETED Source: [place] 5:15 PM [facility] REPOSITORY HNO ID: [id number] Author: Rossana ChoRn) YOANNA Allen Service: (none) Author Type: Registered Nurse Type: Nursing Progress Note Filed: 12/14/2017 7:36 AM Note Text: Per order of Dr Bush, he declined to send the explanted neurostimulator to pathology. PT ED Observed: 12/03/2017 Status: COMPLETED Source: [place] 4:53 PM [facility] REPOSITORY HNO ID: [id number] Author: Alyssia ChoRn) YOANNA Linton Service: Nursing Author Type: Registered Nurse Type: Patient Education Filed: 12/03/2017 4:54 PM Note Text: POST OP LEARNING RESPONSE INSTRUCTION PROVIDED TO: Patient and family member METHOD OF INSTRUCTION: Written instruction - handouts Verbal instruction PATIENT / FAMILY RESPONSE: Information received as demonstrated by interest and questions FOLLOW-UP PLAN: Patient instructed to call with any further issues SUPPLEMENTAL MATERIAL: None REFERRAL (RECOMMENDATION): None Electronically Signed By: Alyssia Linton RN In Department: [facility] SURGERY ANES POST Observed: 12/03/2017 Status: COMPLETED Source: [place] 4:46 PM [facility] REPOSITORY HNO ID: [id number] Author: Chuck Posey Service: Anesthesiology Author Type: Anesthesiologist Type: Anesthesia PostOp Filed: 12/03/2017 4:46 PM Note Text: POST ANESTHESIA EVALUATION NOTE SERVICE DATE: 12/03/2017 SERVICE TIME: 4.46 : 1955 Vitals: 12/03/17 1127 12/03/17 1501 Temp: 37 ?C (98.6 ?F) 36.8 ?C (98.2 ?F) 12/03/17 1530 12/03/17 1545 12/03/17 1600 12/03/17 1615 BP: 186/75 190/80 185/83 193/89 12/03/17 1530 12/03/17 1545 12/03/17 1600 12/03/17 1615 Pulse: 76 67 73 87 12/03/17 1530 12/03/17 1545 12/03/17 1600 12/03/17 1615 Resp: 16 16 14 16 12/03/17 1530 12/03/17 1545 12/03/17 1600 12/03/17 1615 SpO2: 97% 98% 98% 94% Validated Vital Signs: Yes POST ANES STATUS: No apparent anesthetic complications. The patient is appropriately hydrated with stable respiratory and cardiovascular status. Patient has safe and adequate airway control. The patient has appropriate pain relief and no significant post operative nausea or vomiting. The patient has achieved baseline mental status. Further assessment by Anesthesia Service: None Other Remarks: SIGNATURE: Chuck Posey MD PATIENT NAME: Joi Sauceda DATE: December 03, 2017 TIME: 4:46 PM PAGER/CONTACT #: anesthesia PLAN OF CARE Observed: 12/03/2017 Status: COMPLETED Source: [place] 4:15 PM [facility] REPOSITORY HNO ID: [id number] Author: Roberta Drake (Consulting Utility Forester) Service: (none) Author Type: (none) Type: Plan of Care Filed: 12/03/2017 4:16 PM Note Text: PALLIATIVE CARE COORDINATOR BEDSIDE DELIVERY SURVEY 1. Patient to use [facility] Bedside Delivery - YES 2. If fax, patient would like us to fax prescriptions to Pharmacy of choice a. Pharmacy: b. Location: c. Phone: 3. Insurance card on file - YES 4. Credit card for payment - YES PHARMACY BEDSIDE DELIVERY SERVICE Patient Name: Joi Sauceda The marked outpatient medications were Filled at: [place] and delivered to the patient's bedside to pharm p/u Medication List START taking these medications X oxyCODONE-acetaminophen 5-325 mg tablet Commonly known as: PERCOCET Take 1-2 tablets by mouth every 6 hours as needed for Pain for up to 5 days. CONTINUE taking these medications albuterol HFA 90 mcg/actuation inhaler Commonly known as: PROAIR HFA Inhale 2 Puffs as instructed every 4 hours as needed. atorvastatin 20 mg tablet Commonly known as: LIPITOR budesonide-formoterol 160-4.5 mcg/actuation inhaler Commonly known as: SYMBICORT Inhale 2 Puffs as instructed twice daily. CITRACAL + D ORAL Flaxseed Oil 1,000 mg Cap glimepiride 4 mg tablet Commonly known as: AMARYL labetalol 300 mg tablet Commonly known as: TRANDATE losartan 50 mg tablet Commonly known as: COZAAR MEDICATION, NON-DATABASE MEDICATION, NON-DATABASE MEDICATION, NON-DATABASE montelukast 10 mg tablet Commonly known as: SINGULAIR Take 1 tablet by mouth once daily. Mucus Clearing Device Brittaney Commonly known as: FLUTTER 1 Device NASACORT NASAL therapeutic multivitamin tablet Commonly known as: THERA VITAMIN triamterene-hydrochlorothiazide 37.5-25 mg per tablet Commonly known as: MAXZIDE-25 Roberta Drake (Consulting Utility Forester) PAGER: [phone] December 03, 2017 4:15 PM PT ED Observed: 12/03/2017 Status: COMPLETED Source: [place] 3:01 PM CLINIC OTHER CAMPUS REPOSITORY HNO ID: [id number] Author: Jacque (Rn) Suman RN Service: Nursing Author Type: Registered Nurse Type: Patient Education Filed: 12/03/2017 6:49 PM Note Text: 1501 pt to PACU. AANDOx3. PAGAN TCx4. C/o back pain. R transverse drsg DANDI. Mid back drsg DANDI. PIV DANDI. VSS no s/sx of distress. 1653 report given to Alyssia LENZ BRIEF OP NOT Observed: 12/03/2017 Status: COMPLETED Source: [place] 3:00 PM [facility] REPOSITORY HNO ID: [id number] Author: Regino Bush Service: Neurosurgery Author Type: Physician Type: Brief Op Note Filed: 12/03/2017 3:00 PM Note Text: BRIEF OPERATIVE NOTE Patient Name: Joi Sauceda Log ID: [id number] Surgery Date: 12/03/2017 Surgeon(s) and Patternmaker Apprentice Metal(s): Surgeon(s) and Role: * Regino Bush - Primary Procedures and Anesthesia: Procedure(s) and Anesthesia Type: * REMOVE SPINAL NEUROSTIM LEAD, PLATE/PADDLE PREVIOUSLY PLACED VIA LAMI W/ FLUORO - General * REMOVAL NEUROSTIMULATOR PULSE GENERATOR SPINAL CORD - General Findings: See full op report Estimated Blood Loss: 20cc Intravenous Fluids: see anesthesia Condition: good Specimens: none Postop Diagnosis: non functioning spinal stimulator Signature: Regino Bush MD Date: December 03, 2017 Time: 3:00 PM HISTORY PHYSICAL Observed: 12/03/2017 Status: COMPLETED Source: [place] 12:51 PM [facility] REPOSITORY HNO ID: [id number] Author: Regino Bush Service: Neurosurgery Author Type: Physician Type: HANDP Filed: 12/03/2017 12:51 PM Note Text: UPDATED HISTORY AND PHYSICAL EXAMINATION SERVICE DATE: 12/03/2017 SERVICE TIME: 12:51 PM PHYSICAL EXAM MUST BE COMPLETED ON ADMISSION The History and Physical (completed in the past 30 days) has been reviewed and the patient has been examined. The contents accurately reflect the patient's condition with the following additions or revisions since the HANDP was completed. Examination indicates no changes. This HANDP can be found in the Electronic Medical Record dated within 30 days. SIGNATURE: Regino Bush MD PATIENT NAME: Joi Sauceda DATE: December 03, 2017 TIME: 12:51 PM PAGER: ANES PREOP Observed: 12/03/2017 Status: COMPLETED Source: [place] 12:09 PM [facility] REPOSITORY HNO ID: [id number] Author: Chuck Posey Service: Anesthesiology Author Type: Anesthesiologist Type: Anesthesia PreOp Filed: 12/03/2017 12:12 PM Note Text: ANESTHESIOLOGY DAY OF SURGERY NOTE SERVICE DATE: 12/03/2017 SERVICE TIME: 08.22 : 1955 Procedure(s) (LRB): REMOVE SPINAL NEUROSTIM LEAD, PLATE/PADDLE PREVIOUSLY PLACED VIA LAMI W/ FLUORO (N/A) REMOVAL NEUROSTIMULATOR PULSE GENERATOR SPINAL CORD (N/A) Surgeon(s): Regino Bush Estimated body mass index is 28.32 kg/(m2) as calculated from the following: Height as of this encounter: 162.6 cm (5' 4). Weight as of this encounter: 74.8 kg (165 lb). Most recent hematocrit and potassium results: Hematocrit 42.2 11/30/2017 Potassium 4.2 11/30/2017 ANES DOS/PREOP NOTE: Vitals: 12/03/17 1127 BP: 199/98 Pulse: 89 Resp: 16 Temp: 37 ?C (98.6 ?F) TempSrc: Temporal Artery SpO2: 99% Weight: 74.8 kg (165 lb) Height: 162.6 cm (5' 4) ACTIVE PROBLEM LIST Htn (Hypertension) Moderate Persistent Asthma Without Complication [place] (Obstructive Sleep Apnea) Type 2 Diabetes Mellitus With Complication (Hcc) Hld (Hyperlipidemia) Mitral Valve Prolapse PAST MEDICAL HISTORY Diagnosis Date - Abnormal Papanicolaou smear of vagina and vaginal HPV - Asthma - GERD (gastroesophageal reflux disease) - HLD (hyperlipidemia) - HTN (hypertension) - Mitral valve disorders(424.0) - SUMA on CPAP - Other chest pain - Other malaise and fatigue - PMH - PAST MEDICAL HISTORY OF ELEVATED LIPIDS - PMH - PAST MEDICAL HISTORY OF Irregular Heartbeat - Shortness of breath PAST SURGICAL HISTORY Procedure Laterality Date - APPENDECTOMY - BACK SURGERY HX 2000, 2003, 2004 spinal fusion - BLADDER SURGERY HX 12/2015 adjust bladder sling - COLONOSCOPY 2007 - COLPOSCOPY (VAGINOSCOPY) 2002 - ENDOMETRIAL BIOPSY 2002 - LIGATE FALLOPIAN TUBE Tubal ligation - REMOVAL OF TONSILS,<12 Y/O Tonsillectomy - SPINAL CORD STIM PERCT SCS ELCT 2001 - TOTAL ABDOM HYSTERECTOMY 02/2015 w/bladder sling FAMILY HISTORY Problem Relation Age of Onset - Heart Mother Pace Maker/Irregular Heartbeat - Hypertension Mother - Heart Father - Hypertension Father - Lipids Father High Cholesterol - Hypertension Brother Social History: Social History Substance Use Topics - Smoking status: Never Smoker - Smokeless tobacco: Never Used - Alcohol use No No current facility-administered medications on file prior to encounter. Current Outpatient Prescriptions on File Prior to Encounter: montelukast (SINGULAIR) 10 mg tablet Take 1 tablet by mouth once daily. budesonide-formoterol (SYMBICORT) 160-4.5 mcg/actuation inhaler Inhale 2 Puffs as instructed twice daily. Mucus Clearing Device (FLUTTER) brittaney 1 Device losartan (COZAAR) 50 mg tablet Take 50 mg by mouth once daily. albuterol HFA (PROAIR HFA) 90 mcg/actuation inhaler Inhale 2 Puffs as instructed every 4 hours as needed. glimepiride (AMARYL) 4 mg tablet Take 4 mg by mouth daily with breakfast. labetalol (TRANDATE) 300 mg tablet Take 150 mg by mouth twice daily. Flaxseed Oil 1,000 mg cap Take 1,000 mg by mouth twice daily. atorvastatin 20 mg tablet Take 20 mg by mouth once daily. THERAPEUTIC MULTIVITAMIN TAB Take one(1) tablet daily. TRIAMTERENE-HYDROCHLOROTHIAZID 37.5 MG-25 MG TAB Take one(1) tablet daily. Current Facility-Administered Medications: ceFAZolin iv piggyback 2 g in D5W (iso-osmotic) 100 mL (ANCEF) 2 g INTRAVENOUS Pre-Op Once Bianka Joseph APRN.CNP lactated ringers infusion 30 mL/hr INTRAVENOUS CONTINUOUS Bianka Joseph APRN.CNP promethazine 12.5 mg tab(s) (PHENERGAN) 12.5 mg ORAL Pre-Op Once Chuck Posey scopolamine 1 mg over 3 days 1 Patch (TRANSDERM-SCOP) 1 Patch TRANSDERMAL ONCE Chuck Posey And scopolamine - VERIFY patch OTHER q 8 H Chuck Posey And [START ON 12/04/2017] scopolamine - REMOVE PATCH OTHER ONCE Chuck Posey famotidine 20 mg injection (PEPCID) 20 mg INTRAVENOUS Pre- Op Once Chuck Posey Allergies: ALLERGIES Allergen Reactions - Morphine Rash - Steroids [Other] Rash - Zesteretic [Other] Hives DOS EXAM: Adequate NPO status: Yes Anesthetic risks, benefits, alternatives, personnel and consent discussed: Yes Patient agrees to proceed: Yes Previous Anesthesia: No history of adverse event. Airway Assessment: MP 2; Neck ROM: Full ROM without neurologic symptoms; Airway Evaluation: No significant abnormalities Symptoms of Sleep Apnea: None Dentition: Teeth intact Additional Physical Exam: Lungs: Patient health status unchanged since recent history and physical. See history and physical for exam findings. Lungs clear to auscultation. Good diaphragmatic excursion. Cardiac: Patient health status unchanged since recent history and physical. See history and physical for exam findings. murmur 1:2/6, early systolic, low pitched, pulmonic area and base, radiates to diffuse Additional Pertinent Findings: N/A Blood Products: Not anticipated for this procedure. Anesthetic Plan: General, Standard ASA Monitors Pain Management Plan: Parenteral or Oral ASA Class: 3 Other Medical Problems: None Chronic Beta Rayna medication administered within 24 hours: N/A I have interviewed and examined the patient. I have reviewed the medical record and/or the pre-anesthesia evaluation, pertinent labs, and test results. Significant changes in the patient's condition since the History and Physical, not otherwise documented in primary service progress notes: No This contains updated information obtained within 48 hours of Surgery/Procedure. SIGNATURE: Chuck Posey MD PATIENT NAME: Joi Sauceda DATE: December 03, 2017 TIME: 12:09 PM CSN: [id number] PT ED Observed: 12/03/2017 Status: COMPLETED Source: [place] 11:32 AM CLINIC OTHER CAMPUS REPOSITORY HNO ID: [id number] Author: Lou (Rn) YOANNA Leon Service: (none) Author Type: Registered Nurse Type: Patient Education Filed: 12/03/2017 11:33 AM Note Text: PRE OP LEARNING ASSESSMENT PROCEDURE/SURGERY: SURGERY: Removal of pain stimulator READINESS TO LEARN COGNITIVE ABILITY: Alert and oriented MOTIVATION TO LEARN: Eager FAMILY SUPPORT: Unable to assess - Family not present PATIENT LEARNS BEST BY: Individual Instruction Verbal Instruction FACTORS AFFECTING LEARNING: None PHYSICAL LIMITATIONS AFFECTING LEARNING: None Electronically Signed By: Lou Leon RN In Department: [facility] SURGERY OPERATIVE NO Observed: 12/03/2017 Status: COMPLETED Source: [place] 12:00 AM [facility] [place] REPOSITORY HNO ID: [id number] Author: Regino Bush Service: Neurosurgery Author Type: Physician Type: Operative Report Filed: 12/04/2017 7:50 AM Note Text: [facility]- Operative Report JOI SAUCEDA : 1955 AGE: 62 SEX: F ACCTNUM: [id number] HOSP SVC: NEU LOCATION: [facility] ATTENDING PHYSICIAN: Regino Bush M.D. DATE OF PROCEDURE: 12/03/2017 SURGEON: Regino Bush M.D. DROP WIRER: Bianka Joseph CNP. ANESTHESIA: PREOPERATIVE DIAGNOSIS(ES): Nonfunctioning spine stimulator, paddle lead type. POSTOPERATIVE DIAGNOSIS(ES): Same. NAME OF OPERATION: Removal of entire spine stimulator including thoracic paddle lead via thoracic laminectomy and generator. INDICATIONS: This is a 62-year-old female, who presents with clinical signs and symptoms of the above-stated diagnosis. She is felt to be an adequate candidate for the procedure and has failed treatment thus far. PROCEDURE: After carefully explaining the risks, benefits, and alternatives of the procedure, informed consent was obtained. The patient was taken to the operating suite and placed under general endotracheal anesthesia. She was positioned in the lateral decubitus position right side up on a rinaldi bag. The right abdomen, flank, lumbar, and thoracic spine areas were prepped and draped in routine sterile fashion. Initially, her previous right paraspinal slightly oblique incision measuring 1-2 inches in length was reopened using #10 blade. Subcutaneous dissection was carried out to identify the subcutaneous cables. Dissection was then carried out through the epidural plane. The wires were noted to extend and be embedded in bone and be densely adherent to the epidural plane. The entire adjacent lamina was removed using Kerrison rongeurs and a high-speed drill. Dissection was then carried superiorly in the epidural plane to identify the proximal portion of the paddle lead, which was also densely scarred in. This was dissected free from the dura and able to be withdrawn. Dissection was carried out proximally as there were 2 fairly large connector regions in the right flank area. These were dissected free. A separate incision was made over the right mid abdomen utilizing a previous incision measuring 2-3 inches in length. The generator was able to be dissected free from its subcutaneous pocket and removed. All of the wires were able to also be removed. Fluoroscopy was used to facilitate the procedure and there was no evidence of any residual metallic spinal stimulator hardware at the conclusion of the case on fluoroscopy. Hemostasis was achieved and both incisions were closed in multiple layers in the usual manner. Sterile dressings were applied. The patient tolerated the procedure well without apparent complications and postoperatively transferred to Postanesthesia Care Unit in satisfactory condition. Regino Bush M.D. Neurosurgery DD:[id number] /[id number] NURSING PROG Observed: 12/01/2017 Status: COMPLETED Source: [place] 7:20 AM [facility] OTHER CAMPUS REPOSITORY HNO ID: [id number] Author: Apoorva (Rn) YOANNA Floyd Service: (none) Author Type: Registered Nurse Type: Nursing Progress Note Filed: 12/02/2017 2:38 PM Note Text: PACC Nurse Progress Note History AND Physical: PACC Visit Date: 11/30/17 Labs Within Last 6 Months: CBC: Date 11/30/17 BMP/CMP: Date 11/30/17 HBA1C: Date 11/30/17 awaiting results TYPE AND SCREEN: Date 11/30/17 [place]: Date 11/30/17 Imaging Within Last 12 Months: N/A Cardiac Testing: N/A Last Menstrual Period: LMP Date: N/A Postmenopausal >1yr: Yes, S/P Hysterectomy: Yes Narrative: H/O [id number]. Awaiting A1C and EKG results Pre-op Considerations: N/A Chart Check: IN PROGRESS Eugenia Porras RN December 01, 2017 7:20 AM Addendum 12/01/2017 1147 HgbA1C results from 11/30/2017= 7.3 EKG results 11/30/2017 in EPIC. Reviewed by PACC provider. Attempted to get previous EKG results from PCP but unsuccessful. E-mail re: patient history and EKG results sent to Dr. Roshan Anna anesthesia for advisement- OK to proceed per Dr. Wilfrido Floyd, YOANNA December 01, 2017 4125 CONFIRM BLOOD TYPE Collected: 11/30/2017 Status: F Source: [place] 4:20 PM [facility] OTHER CAMPUS REPOSITORY TYPE CODE TESTS RESULT OUT OF REFERENCE UNITS RANGE LAB %ABR O ABO/RH(D) POSITIVE Performed By: #### [place] #### [facility] [address] [facility] [phone] BASIC METABOLIC PANL Collected: 11/30/2017 Status: F Source: [place] 4:20 PM [facility] OTHER CAMPUS REPOSITORY TYPE CODE TESTS RESULT OUT OF REFERENCE UNITS RANGE LAB GLU 74-99 mg/dL High Glucose 119 Result Comment: The [place] [employer] (ADA) provides guidance for cutoff values for fasting glucose and random glucose. The ADA defines fasting as no caloric intake for at least 8 hours. Fas ting plasma glucose results between 100 to 125 mg/dL indicate increased risk for diabetes (prediabetes). Fasting plasma glucose results greater than or equal to 126 mg/dL meet the criteria for diagnosis of diabetes. In the absence of unequivocal hyperglycemia, results should be confirmed by repeat testing. In a patient with classic symptoms of hyperglycemia or hyperglycemic crisis, random plasma glucose results greater than or equal to 200 mg/dL meet the criteria for diagnosis of diabetes. Reference: Standards of Medical Care in Diabetes 2016, [place] [employer]. Diabetes Care. 2016.39(Suppl 1). LAB BUN 7-21 mg/dL BUN 18 LAB CRET 0.58-0.96 mg/dL Creatinine 0.88 LAB NA 136-144 mmol/L Sodium 140 LAB K 3.7-5.1 mmol/L Potassium 4.2 LAB CL 97-105 mmol/L Chloride 99 LAB CO2 22-30 mmol/L CO2 28 LAB AGAP 9-18 mmol/L Anion Gap 13 LAB CA 8.5-10.2 mg/dL Calcium, High Total 10.3 LAB GFRAA eGFR- Amer. >60 LAB GFRNAA . eGFR-All Other Races >60 Result Comment: eGFR (Estimated GFR) Units of measure: mL/min/1.73 meters squared eGFR is derived from the reexpressed MDRD Study equation using the following parameters: serum creatinine, age, gender and race. The creatinine assay has been calibrated to be traceable to IDMS. An eGFR <60 mL/min/1.73m2 for >3 months is consistent with chronic kidney disease. Refer to KDOQI guidelines for clinical interpretation. In patients with unstable renal function, e.g. those with acute kidney injury, the eGFR may not accurately reflect actual GFR. Performed By: #### BMP, CBCDIF, HBA1C #### [facility] [address] [place], [place] [address] CBC AND DIFFERENTIAL Collected: 11/30/2017 Status: F Source: [place] 4:20 PM CLINIC OTHER CAMPUS REPOSITORY TYPE CODE TESTS RESULT OUT OF REFERENCE UNITS RANGE LAB WBC 3.70-11.00 k/uL WBC 9.84 LAB RBC 3.90-5.20 m/uL RBC 4.49 LAB HGB 11.5-15.5 g/dL Hemoglobin 13.9 LAB HCT 36.0-46.0 % Hematocrit 42.2 LAB MCV 80.0-100.0 fL MCV 94.0 LAB MCH 26.0-34.0 pG MCH 31.0 LAB MCHC 30.5-36.0 g/dL MCHC 32.9 LAB RDWCV 11.5-15.0 % RDW-CV 12.6 LAB PLTCT 150-400 k/uL Platelet Count 254 LAB MPV 9.0-12.7 fL MPV 10.6 LAB ANEUT % Neut% 61.3 LAB AANEUT 1.45-7.50 k/uL Abs Neut 6.03 LAB ALYMP % Lymph% 30.1 LAB AALYMP 1.00-4.00 k/uL Abs Lymph 2.96 LAB AMONO % [place]% 6.5 LAB AAMONO <0.87 k/uL Abs [place] 0.64 LAB AEOS % Eosin% 1.5 LAB AAEOS <0.46 k/uL Abs Eosin 0.15 LAB ABASO % Baso% 0.6 LAB AABASO <0.11 k/uL Abs Baso 0.06 LAB AUNRBC 0 /100 WBC NRBCs 0.0 LAB ABNRBC <0.01 k/uL Absolute nRBC <0.01 LAB DTYP DTYPE Auto Diff Performed By: #### BMP, CBCDIF, HBA1C #### [facility] [address] [place], [place] [address] HEMOGLOBIN A1C Collected: 11/30/2017 Status: F Source: [place] 4:20 PM CLINIC OTHER CAMPUS REPOSITORY TYPE CODE TESTS RESULT OUT OF REFERENCE UNITS RANGE LAB HGBA1C 4.3-5.6 % High Hemoglobin A1c 7.3 LAB HBA0 mg/dL Est. Average Glucose 163 Result Comment: eAG: (Estimated average glucose) is a calculated value from HgbA1c and is passenger representative of the average blood glucose level in the last 2-3 month period. Performed By: #### BMP, CBCDIF, HBA1C #### [facility] [address] [place], [place] [address] TYPE AND SCR (30D) Collected: 11/30/2017 Status: F Source: [place] 4:19 PM CLINIC OTHER CAMPUS REPOSITORY TYPE CODE TESTS RESULT OUT OF REFERENCE UNITS RANGE LAB %ABR O ABO/RH(D) POSITIVE LAB % Antibody NEG Screen Performed By: #### [id number] #### [facility] [address] [facility] [phone] HOSP Observed: 11/30/2017 Status: COMPLETED Source: [place] 3:40 PM CLINIC OTHER CAMPUS REPOSITORY PAT (PREANME) JOI SAUCEDA ([id number]) 1955 F Date Time Provider Department 11/30/17 3:40 PM [facility] 1 PREANME During your visit today, we recorded the following information about you: Temperature Pulse Respiration Blood pressure 97.5 degrees 82/minute 16/minute 157/82 Weight Height 74.8 kg 1.632 m Ruthy Soler APRN.FRENCH ONOFRE 12/02/2017 2:39 PM Addendum HISTORY AND PHYSICAL EXAMINATION SERVICE DATE: 11/30/2017 SERVICE TIME: 3:34 PM PRIMARY CARE PHYSICIAN: Micah Pratt MD REASON FOR VISIT: Joi Sauceda is a 62 year old female who is scheduled for THORACIC LAMINECTOMY, REMOVAL OF SPINE STIM AND GENERATOR IN ABDOMEN at the request of Dr. Regino Bush for consultation. My final recommendation will be communicated back to the requesting physician by way of shared medical record or letter. The patient has the following: ACTIVE PROBLEM LIST Htn (Hypertension) Moderate Persistent Asthma Without Complication [place] (Obstructive Sleep Apnea) Type 2 Diabetes Mellitus With Complication (Hcc) Hld (Hyperlipidemia) Mitral Valve Prolapse Subjective CHIEF COMPLAINT: Pre-Op Exam HPI: 62 year old female presents with right lower back pain. This pain started last summer. Pain is intermittent and aching in sensation. Pain is aggravated when lifting objects and was brought on when raking leaves outside. Pain is relieved with rest and sitting down. Pain has been radiating down the right leg intermittently. Sometimes she also experiences numbness and tingling of the right leg. Pain is not interfering with sleep. Denies recent injections or therapy. She had a spinal cord stimulator placed in 2001. She reports improvement of pain for only 1 year at that time. Stimulator has not been used for the past 11 or 12 years. She has also had 3 other back surgeries with most recent in 2004. PAST MEDICAL HISTORY Diagnosis Date - Abnormal Papanicolaou smear of vagina and vaginal HPV - Asthma - GERD (gastroesophageal reflux disease) - HLD (hyperlipidemia) - HTN (hypertension) - Mitral valve disorders(424.0) - SUMA on CPAP - Other chest pain - Other malaise and fatigue - PMH - PAST MEDICAL HISTORY OF ELEVATED LIPIDS - PMH - PAST MEDICAL HISTORY OF Irregular Heartbeat - Shortness of breath PAST SURGICAL HISTORY Procedure Laterality Date - APPENDECTOMY - BACK SURGERY HX 2000, 2003, 2004 spinal fusion - BLADDER SURGERY HX 12/2015 adjust bladder sling - COLONOSCOPY 2007 - COLPOSCOPY (VAGINOSCOPY) 2002 - ENDOMETRIAL BIOPSY 2002 - LIGATE FALLOPIAN TUBE Tubal ligation - REMOVAL OF TONSILS,ANDlt;13 Y/O Tonsillectomy - SPINAL CORD STIM PERCT SCS ELCT 2001 - TOTAL ABDOM HYSTERECTOMY 02/2015 w/bladder sling FAMILY HISTORY Problem Relation Age of Onset - Heart Mother Pace Maker/Irregular Heartbeat - Hypertension Mother - Heart Father - Hypertension Father - Lipids Father High Cholesterol - Hypertension Brother SOCIAL HISTORY: Social History Marital status: Spouse name: MICAH Years of education: 12 Number of children: 3 Occupational History Occupation Employer Comment Disability [employer] * Social History Main Topics Smoking status: Never Smoker Smokeless status: Never Used Alcohol use: No Drug use: No Sexual activity: Yes Partners with: Male control/protection: Surgical Comment: bilateral tubal ligation Prior to Admission medications as of 11/30/17 1601 Medication Sig Last Dose Taking MEDICATION, NON-DATABASE Take 1 tablet by mouth once daily. Vitalbiome Yes MEDICATION, NON-DATABASE Take 1 Each by mouth once daily. Slim Yes CALCIUM CITRATE/VITAMIN D3 (CITRACAL + D ORAL) Take 1 tablet by mouth twice daily. Yes MEDICATION, NON-DATABASE Take 2 capsules by mouth daily at bedtime. Biocleanse Yes TRIAMCINOLONE ACETONIDE (NASACORT NASAL) Use 1 Muse in the nose once daily. Yes montelukast (SINGULAIR) 10 mg tablet Take 1 tablet by mouth once daily. Yes budesonide-formoterol (SYMBICORT) 160-4.5 mcg/actuation inhaler Inhale 2 Puffs as instructed twice daily. Yes Mucus Clearing Device (FLUTTER) brittaney 1 Device Yes losartan (COZAAR) 50 mg tablet Take 50 mg by mouth once daily. Yes albuterol HFA (PROAIR HFA) 90 mcg/actuation inhaler Inhale 2 Puffs as instructed every 4 hours as needed. Yes glimepiride (AMARYL) 4 mg tablet Take 4 mg by mouth daily with breakfast. Yes labetalol (TRANDATE) 300 mg tablet Take 150 mg by mouth twice daily. Yes Flaxseed Oil 1,000 mg cap Take 1,000 mg by mouth twice daily. Yes atorvastatin 20 mg tablet Take 20 mg by mouth once daily. Yes THERAPEUTIC MULTIVITAMIN TAB Take one(1) tablet daily. Yes TRIAMTERENE-HYDROCHLOROTHIAZID 37.5 MG-25 MG TAB Take one(1) tablet daily. Yes No medication comments found. ALLERGIES Allergen Reactions - Morphine Rash - Steroids [Other] Rash - Zesteretic [Other] Hives REVIEW OF SYSTEMS: PAIN ASSESSMENT: General: No weight loss, malaise or fevers. Neuro: (+) Impaired sensorium - see HPI. Denies TIAs, strokes, seizures, HAs. Respiratory: Positive for asthma - chronic cough present. Symbicort BID. PRN inhaler mostly when it's cold outside. Change in temperatures exacerbates symptoms. (+) SUMA - not currently using CPAP. Denies SOB with activity. No recent bronchitis or pneumonia. Denies COPD. Cardiovascular: Positive for: HLD - on Rx. (+) HTN - on Rx. (+) Palpitations - has irregular heart beat, previous Holter monitor testing. Randomly occurs. Occasionally causes her to feel lightheaded/dizzy. (+) Mitral valve prolapse - follows with PCP. Denies CP, AK, HF, CAD, DVT/PE. GI: Positive for IBS - symptoms well-controlled with herbal supplement. (+) Heartburn. Denies N/V/C/D/Ab Pain, blood in the stool, or liver disease. : (+) Urge incontinence - occasionally occurs. Denies pain or burning with urination; no recent UTIs. No hematuria, frequency, or nocturia. No history of kidney stones or renal disease. DIRECTOR OF QUALITY: Negative for abnormal vaginal bleeding, abnormal vaginal discharge. : Hysterectomy 2015 Endocrine: Diabetes Mellitus on oral agent. Denies thyroid disease. Hematology: No history of bleeding or clotting disorder. Pt is not taking anti-coagulation or platelet medications. No history of hematological symptoms or problems. Oncology: No history of CA metastasis, chemo within 30 days, or radiotherapy within 90 days. Has not lost 10% of body wt in 6 months. No history of oncological symptoms or problems. Psych: Anxiety - herbal supplement helps. Denies depression. Musculoskeletal: See HPI. Denies additional joint pain. Denies swelling of lower extremities. Skin: Negative for lesions, rash and itching. Objective PHYSICAL EXAM: VITALS: BP 157/82 Pulse 82 Temp (Src) 97.5 (Tympanic) Resp 16 Ht 5' 4.25ANDquot; (1.63m) Wt 165 lb (74.8kg) SpO2 98% LMP 07/04/2007 BMI 28.10 kg/(m2). General: Alert and oriented, No acute distress, Healthy appearance Skin: Normal color, no rash, no lesions. HEENT: Pupils equal, round and reactive., No carotid bruits Cardiovascular: Normal S1 ANDamp; S2, no rubs, murmurs or gallops. No JVD. Pulse regular. Lungs: Normal breath sounds, no wheezes or crackles., No chest deformities or chest wall tenderness. Abdomen: Soft, non-tender, no rigidity., No masses or organomegaly. Extremities: No deformity, no edema or tenderness, no joint swelling or clubbing. Neurological: Normal cognition and motor skills. Gait normal. No weakness or sensory deficit. Pulses: Carotid and radial pulses normal +2. Diagnostic tests reviewed for today's visit: Lab Value Units Date High Low HB No results within date range. HCT No results within date range. WBC No results within date range. PLT No results within date range. NA No results within date range. K No results within date range. GLUC No results within date range. BUN No results within date range. CREAT No results within date range. PTSEC No results within date range. INR No results within date range. APTT No results within date range. ALT No results within date range. AST No results within date range. TBILI No results within date range. TSH No results within date range. Lab Value Units Date High Low HCGQT No results within date range. UHCG No results within date range. HCG, BODY* No results within date range. Lab Value Units Date High Low ABORHD No results within date range. ABSCREEN No results within date range. No results found for: HBA1C Most recent labs Most recent Echo Most recent stress test Assessment ASSESSMENT Asthma - Condition is stable. Symbicort BID, PRN albuterol rarely uses. Diabetes - Last A1C 6.8 (04/2017). On PO Rx. HTN - BP 157/82 today. On Rx. Hyperlipidemia - On Rx. SUMA - Patient is not able to use CPAP/BIPAP IBS - on herbal supplements Mitral valve prolapse Anxiety - on herbal supplements PONV METS: Climb a flight of stairs or walk up a hill (5.50 METs) Patient denies any chest pain or undue shortness of breath with the above physical activity. ASA Class: 3 ANESTHESIA FINDINGS: Intubation History: No history of difficult intubation Significant Anesthesia Considerations: Postop nausea/vomiting Airway Exam: General: Normal appearance Mallampati Score is CLASS III ULBT: Class II - Lower incisors can bite the upper lip below the gen line Neck: Distance from hyoid to mentum during neck extension is at least 3 finger breaths, Limited movement extension and turning to one or both sides Mouth: Normal tongue size and Mouth opening greater than 2 finger breaths Dentition: Intact Airway History: No abnormal airway history STOP BANG Score: SUMA does not use CPAP/BiPAP PLAN This patient is optimally prepared for surgery pending LABS and EKG. EKG reviewed by MARK Lopez to proceed with surgery. CONSULTS: Patient does not require consults for optimization at this time. The Following Tests/Procedures Have Been Initiated: Orders Placed This Encounter CBC + DIFF BMP HGB A1C TYPE + SCREEN,30 DAY [place] EKG COMPLETE Planned Anesthetic: General Instructions Given to Patient: Patient given verbal and written preop instructions and voices comprehension and compliance. SIGNATURE: Ruthy Soler APRN.CNP PATIENT NAME: Joi Sauceda DATE: November 30, 2017 TIME: 3:34 PM PAGER/CONTACT #: Ruthy Soler APRN.CNP, APRN.CNP 11/30/2017 4:11 PM Addendum PATIENT PREOPERATIVE INSTRUCTIONS Regino Bush MD has scheduled you for your procedure at this surgery center: [facility]: [phone] -- [address] [facility] [address]. Please read below carefully for your personalized instructions. Blood Thinning Medications: - Stop NSAIDS (Ibuprofen, Advil, Aleve, Motrin, Celebrex, Mobic, etc.) 7 days before surgery, as directed by your surgeon. - Stop Aspirin 7 days before surgery, as directed by your surgeon. - Stop Vitamin E, ALL multi-vitamins, herbals and dietary supplements 7 days before surgery. - You may take Tylenol (Acetaminophen) or any of your pain medications that do not contain aspirin or NSAIDS as needed. Dietary Restrictions: - No solid food after midnight. - You may have 12 ounces of clear liquids (water, clear juices such as apple juice or gatorade, carbonated beverages, clear tea, black coffee, jello) until 2 hours before scheduled arrival at facility. - Do not drink any alcohol after midnight the night before your surgery. Medications: Approved medications to take the morning of surgery with a sip of water: Montelukast, Labetalol and Symbicort - No diabetic medication the morning of surgery. - Accucheck day of surgery. If you start any new medications after today's visit, please contact the surgery center above. Important Reminders: - If you are prescribed inhalers for breathing, continue using them AND bring them to the surgery center. - Candy, mints, gum and tobacco products are NOT permitted the morning of surgery. - Hearing aids, dentures and glasses may be worn the morning of surgery. - NO jewelry, body piercings, makeup, nail bruneian, hairpins or contacts are to be worn the day of surgery. - Hibiclens shower. If you develop symptoms such as a fever, cold, or flu, or have other changes to your health within TWO DAYS of scheduled surgery or the morning of surgery, please contact the surgery center above. Personal Belongings: - Leave ALL valuables and money at home or with family members. For Outpatient Procedures: - YOU MUST HAVE A RESPONSIBLE BOBBIN COLLECTOR TAKE YOU HOME. A SYNTHETIC GEM PRESS OPERATOR OR CIGAR ROLLER CANNOT BE MADE A RESPONSIBLE BOBBIN COLLECTOR. - We recommend that a responsible person stays with you overnight to take care of you. - You cannot stay in a hotel alone after outpatient surgery. You will not be permitted to have your surgery, if you do not have someone to take care of you. Arrival Time for Surgery: - The Surgery Center or hospital where you are having surgery will call the afternoon before surgery (or Thursday for Thursday surgery) with a scheduled arrival time. - If you have not heard by 4 pm, please contact the surgery center above. Please be aware that emergency situations arise, which may delay or change your surgical time. If this happens, we will notify you as soon as possible and regret any inconvenience. Ruthy Soler APRN.JEMIMA Referring Provider: REGINO BUSH [[id number]] Allergies As of Date: 11/30/2017 Noted Allergy Reaction MORPHINE 08/28/2005 2 - Rash steroids [Other] 08/28/2005 2 - Rash zesteretic [Other] 08/28/2005 4 - Hives Date Reviewed: 11/30/2017 Reviewed by: Ruthy (Jemima) JOZEF Soler.MANAGER BUSINESS CONTINUITY - Fully Assessed Reason for Visit: Pre-Op Exam [87] Primary Visit Diagnosis:Preoperative examination [Z01.818] Other Visit Diagnoses:Complications due to device, implant, and graft, subsequent encounter [T85.9XXD] Type 2 diabetes mellitus with complication, unspecified color blender insulin use status (HCC) [E11.8] Hyperlipidemia, unspecified hyperlipidemia type [E78.5] Essential hypertension [I10] Moderate persistent asthma without complication [J45.40] Order(s):TYPE + SCREEN,30 DAY [XTWPJK46] Order #: [id number] FUTURE CONFIRM BLOOD TYPE [SQCONABO] Order #: [id number] FUTURE CBC + DIFF [SQCBCDIF] Order #: [id number] FUTURE BASIC METABOLIC PNL [SQBMP] Order #: [id number] FUTURE HGB A1C [HYMXC5O] Order #: [id number] FUTURE ECG COMPLETE W INTERPRETATION [ECG01] Order #: [id number]. #:[id number] Prescriptions as of 11/30/2017 Sig: MEDICATION, NON-DATABASE Take 1 tablet by mouth once d* MEDICATION, NON-DATABASE Take 1 Each by mouth once rosalinda* CITRACAL + D ORAL Take 1 tablet by mouth twice * MEDICATION, NON-DATABASE Take 2 capsules by mouth jamin* NASACORT NASAL Use 1 Muse in the nose once * MONTELUKAST 10 MG TABLET Take 1 tablet by mouth once d* BUDESONIDE-FORMOTEROL HFA 160* Inhale 2 Puffs as instructed * MUCUS CLEARING DEVICE 1 Device LOSARTAN 50 MG TABLET Take 50 mg by mouth once jamin* ALBUTEROL SULFATE HFA 90 MCG/* Inhale 2 Puffs as instructed * GLIMEPIRIDE 4 MG TABLET Take 4 mg by mouth daily with* LABETALOL 300 MG TABLET Take 150 mg by mouth twice da* FLAXSEED OIL 1,000 MG CAPSULE Take 1,000 mg by mouth twice * ATORVASTATIN 20 MG TABLET Take 20 mg by mouth once jamin* * THERAPEUTIC MULTIVITAMIN TABL* Take one(1) tablet daily. * TRIAMTERENE 37.5 MG-HYDROCHLO* Take one(1) tablet daily. Problem List As Of Date 11/30/2017 Noted Resolved Shortness of breath [R06.02] 11/30/2017 Other malaise and fatigue [R53.81, R53.83] 11/30/2017 Other chest pain [R07.89] 11/30/2017 Unspecified asthma(493.90) [J45.909] INVALID FOR*11/30/2017 Cystocele [AEL6723] INVALID FOR*11/30/2017 HTN (hypertension) [I10] INVALID FOR* Moderate persistent asthma without complication*INVALID FOR* SUMA (obstructive sleep apnea) [G47.33] INVALID FOR* Type 2 diabetes mellitus with complication (HCC* HLD (hyperlipidemia) [E78.5] Mitral valve prolapse [I34.1] Other instructions from your clinician: PATIENT PREOPERATIVE INSTRUCTIONS Regino Bush MD has scheduled you for your procedure at this surgery center: [facility]: [phone] -- [address] [facility] [id number]. Please read below carefully for your personalized instructions. Blood Thinning Medications: - Stop NSAIDS (Ibuprofen, Advil, Aleve, Motrin, Celebrex, Mobic, etc.) 7 days before surgery, as directed by your surgeon. - Stop Aspirin 7 days before surgery, as directed by your surgeon. - Stop Vitamin E, ALL multi-vitamins, herbals and dietary supplements 7 days before surgery. - You may take Tylenol (Acetaminophen) or any of your pain medications that do not contain aspirin or NSAIDS as needed. Dietary Restrictions: - No solid food after midnight. - You may have 12 ounces of clear liquids (water, clear juices such as apple juice or gatorade, carbonated beverages, clear tea, black coffee, jello) until 2 hours before scheduled arrival at facility. - Do not drink any alcohol after midnight the night before your surgery. Medications: Approved medications to take the morning of surgery with a sip of water: Montelukast, Labetalol and Symbicort - No diabetic medication the morning of surgery. - Accucheck day of surgery. If you start any new medications after today's visit, please contact the surgery center above. Important Reminders: - If you are prescribed inhalers for breathing, continue using them AND bring them to the surgery center. - Candy, mints, gum and tobacco products are NOT permitted the morning of surgery. - Hearing aids, dentures and glasses may be worn the morning of surgery. - NO jewelry, body piercings, makeup, nail bruneian, hairpins or contacts are to be worn the day of surgery. - Hibiclens shower. If you develop symptoms such as a fever, cold, or flu, or have other changes to your health within TWO DAYS of scheduled surgery or the morning of surgery, please contact the surgery center above. Personal Belongings: - Leave ALL valuables and money at home or with family members. For Outpatient Procedures: - YOU MUST HAVE A RESPONSIBLE BOBBIN COLLECTOR TAKE YOU HOME. A SYNTHETIC GEM PRESS OPERATOR OR CIGAR ROLLER CANNOT BE MADE A RESPONSIBLE BOBBIN COLLECTOR. - We recommend that a responsible person stays with you overnight to take care of you. - You cannot stay in a hotel alone after outpatient surgery. You will not be permitted to have your surgery, if you do not have someone to take care of you. Arrival Time for Surgery: - The Surgery Center or hospital where you are having surgery will call the afternoon before surgery (or Thursday for Thursday surgery) with a scheduled arrival time. - If you have not heard by 4 pm, please contact the surgery center above. Please be aware that emergency situations arise, which may delay or change your surgical time. If this happens, we will notify you as soon as possible and regret any inconvenience. Ruthy Soler APRN.MANAGER BUSINESS CONTINUITY Medications Discontinued During This Encounter CALCIUM CARBONATE ORAL 11/30/2017 Class: Historical Med Route: ORAL Sig: Take 2 tablets by mouth once daily. Disc: Discontinued by Patient COLACE 100 MG CAP 0 06/09/2006 11/30/2017 Class: Historical Med Route: ORAL Sig: Take one(1) capsule twice daily. Disc: Discontinued by Patient ELMIRON 100 mg capsule 07/29/2016 11/30/2017 Class: Historical Med Route: ORAL Sig: Take 100 mg by mouth twice daily. Disc: Course of therapy completed glimepiride (AMARYL) 2 mg tablet 09/30/2017 11/30/2017 Class: Historical Med Sig: Disc: Duplicate Entry oxybutynin XL (DITROPAN XL) 5 mg 24 * 06/16/2017 11/30/2017 Class: Historical Med Sig: Disc: Course of therapy completed phenazopyridine (PYRIDIUM, GERIDIUM)* 09/05/2017 11/30/2017 Class: Historical Med Route: ORAL Sig: Take 200 mg by mouth three times daily as needed. Disc: Course of therapy completed tiZANidine (ZANAFLEX) 4 mg tablet 09/15/2017 11/30/2017 Class: Historical Med Sig: Disc: Discontinued by Patient Encounter Status:Closed by RUTHY SOLER CNP on 11/30/17 HISTORY PHYSICAL Observed: 11/30/2017 Status: COMPLETED Source: [place] 3:34 PM CLINIC OTHER CAMPUS REPOSITORY O ID: [id number] Author: Ruthy Clark) FRENCH Soler Service: (none) Author Type: Nurse Practitioner Type: HANDP Filed: 12/02/2017 2:39 PM Note Text: HISTORY AND PHYSICAL EXAMINATION SERVICE DATE: 11/30/2017 SERVICE TIME: 3:34 PM PRIMARY CARE PHYSICIAN: Micah Pratt MD REASON FOR VISIT: Joi Sauceda is a 62 year old female who is scheduled for THORACIC LAMINECTOMY, REMOVAL OF SPINE STIM AND GENERATOR IN ABDOMEN at the request of Dr. Regino Bush for consultation. My final recommendation will be communicated back to the requesting physician by way of shared medical record or letter. The patient has the following: ACTIVE PROBLEM LIST Htn (Hypertension) Moderate Persistent Asthma Without Complication [place] (Obstructive Sleep Apnea) Type 2 Diabetes Mellitus With Complication (Hcc) Hld (Hyperlipidemia) Mitral Valve Prolapse Subjective CHIEF COMPLAINT: Pre-Op Exam HPI: 62 year old female presents with right lower back pain. This pain started last summer. Pain is intermittent and aching in sensation. Pain is aggravated when lifting objects and was brought on when raking leaves outside. Pain is relieved with rest and sitting down. Pain has been radiating down the right leg intermittently. Sometimes she also experiences numbness and tingling of the right leg. Pain is not interfering with sleep. Denies recent injections or therapy. She had a spinal cord stimulator placed in 2001. She reports improvement of pain for only 1 year at that time. Stimulator has not been used for the past 11 or 12 years. She has also had 3 other back surgeries with most recent in 2004. PAST MEDICAL HISTORY Diagnosis Date - Abnormal Papanicolaou smear of vagina and vaginal HPV - Asthma - GERD (gastroesophageal reflux disease) - HLD (hyperlipidemia) - HTN (hypertension) - Mitral valve disorders(424.0) - SUMA on CPAP - Other chest pain - Other malaise and fatigue - PMH - PAST MEDICAL HISTORY OF ELEVATED LIPIDS - PMH - PAST MEDICAL HISTORY OF Irregular Heartbeat - Shortness of breath PAST SURGICAL HISTORY Procedure Laterality Date - APPENDECTOMY - BACK SURGERY HX 2000, 2003, 2004 spinal fusion - BLADDER SURGERY HX 12/2015 adjust bladder sling - COLONOSCOPY 2007 - COLPOSCOPY (VAGINOSCOPY) 2002 - ENDOMETRIAL BIOPSY 2002 - LIGATE FALLOPIAN TUBE Tubal ligation - REMOVAL OF TONSILS,<12 Y/O Tonsillectomy - SPINAL CORD STIM PERCT SCS ELCT 2001 - TOTAL ABDOM HYSTERECTOMY 02/2015 w/bladder sling FAMILY HISTORY Problem Relation Age of Onset - Heart Mother Pace Maker/Irregular Heartbeat - Hypertension Mother - Heart Father - Hypertension Father - Lipids Father High Cholesterol - Hypertension Brother SOCIAL HISTORY: Social History Marital status: Spouse name: MICAH Years of education: 12 Number of children: 3 Occupational History Occupation Employer Comment [employer] * Social History Main Topics Smoking status: Never Smoker Smokeless status: Never Used Alcohol use: No Drug use: No Sexual activity: Yes Partners with: Male control/protection: Surgical Comment: bilateral tubal ligation Prior to Admission medications as of 11/30/17 1601 Medication Sig Last Dose Taking MEDICATION, NON-DATABASE Take 1 tablet by mouth once daily. Vitalbiome Yes MEDICATION, NON-DATABASE Take 1 Each by mouth once daily. Slim Yes CALCIUM CITRATE/VITAMIN D3 (CITRACAL + D ORAL) Take 1 tablet by mouth twice daily. Yes MEDICATION, NON-DATABASE Take 2 capsules by mouth daily at bedtime. Biocleanse Yes TRIAMCINOLONE ACETONIDE (NASACORT NASAL) Use 1 Muse in the nose once daily. Yes montelukast (SINGULAIR) 10 mg tablet Take 1 tablet by mouth once daily. Yes budesonide-formoterol (SYMBICORT) 160-4.5 mcg/actuation inhaler Inhale 2 Puffs as instructed twice daily. Yes Mucus Clearing Device (FLUTTER) brittaney 1 Device Yes losartan (COZAAR) 50 mg tablet Take 50 mg by mouth once daily. Yes albuterol HFA (PROAIR HFA) 90 mcg/actuation inhaler Inhale 2 Puffs as instructed every 4 hours as needed. Yes glimepiride (AMARYL) 4 mg tablet Take 4 mg by mouth daily with breakfast. Yes labetalol (TRANDATE) 300 mg tablet Take 150 mg by mouth twice daily. Yes Flaxseed Oil 1,000 mg cap Take 1,000 mg by mouth twice daily. Yes atorvastatin 20 mg tablet Take 20 mg by mouth once daily. Yes THERAPEUTIC MULTIVITAMIN TAB Take one(1) tablet daily. Yes TRIAMTERENE-HYDROCHLOROTHIAZID 37.5 MG-25 MG TAB Take one(1) tablet daily. Yes No medication comments found. ALLERGIES Allergen Reactions - Morphine Rash - Steroids [Other] Rash - Zesteretic [Other] Hives REVIEW OF SYSTEMS: PAIN ASSESSMENT: General: No weight loss, malaise or fevers. Neuro: (+) Impaired sensorium - see HPI. Denies TIAs, strokes, seizures, HAs. Respiratory: Positive for asthma - chronic cough present. Symbicort BID. PRN inhaler mostly when it's cold outside. Change in temperatures exacerbates symptoms. (+) SUMA - not currently using CPAP. Denies SOB with activity. No recent bronchitis or pneumonia. Denies COPD. Cardiovascular: Positive for: HLD - on Rx. (+) HTN - on Rx. (+) Palpitations - has irregular heart beat, previous Holter monitor testing. Randomly occurs. Occasionally causes her to feel lightheaded/dizzy. (+) Mitral valve prolapse - follows with PCP. Denies CP, AK, HF, CAD, DVT/PE. GI: Positive for IBS - symptoms well-controlled with herbal supplement. (+) Heartburn. Denies N/V/C/D/Ab Pain, blood in the stool, or liver disease. : (+) Urge incontinence - occasionally occurs. Denies pain or burning with urination; no recent UTIs. No hematuria, frequency, or nocturia. No history of kidney stones or renal disease. DIRECTOR OF QUALITY: Negative for abnormal vaginal bleeding, abnormal vaginal discharge. : Hysterectomy 2014 Endocrine: Diabetes Mellitus on oral agent. Denies thyroid disease. Hematology: No history of bleeding or clotting disorder. Pt is not taking anti-coagulation or platelet medications. No history of hematological symptoms or problems. Oncology: No history of CA metastasis, chemo within 30 days, or radiotherapy within 90 days. Has not lost 10% of body wt in 6 months. No history of oncological symptoms or problems. Psych: Anxiety - herbal supplement helps. Denies depression. Musculoskeletal: See HPI. Denies additional joint pain. Denies swelling of lower extremities. Skin: Negative for lesions, rash and itching. Objective PHYSICAL EXAM: VITALS: BP 157/82 Pulse 82 Temp (Src) 97.5 (Tympanic) Resp 16 Ht 5' 4.25 (1.63m) Wt 165 lb (74.8kg) SpO2 98% LMP 07/04/2007 BMI 28.10 kg/(m2). General: Alert and oriented, No acute distress, Healthy appearance Skin: Normal color, no rash, no lesions. HEENT: Pupils equal, round and reactive., No carotid bruits Cardiovascular: Normal S1 AND S2, no rubs, murmurs or gallops. No JVD. Pulse regular. Lungs: Normal breath sounds, no wheezes or crackles., No chest deformities or chest wall tenderness. Abdomen: Soft, non-tender, no rigidity., No masses or organomegaly. Extremities: No deformity, no edema or tenderness, no joint swelling or clubbing. Neurological: Normal cognition and motor skills. Gait normal. No weakness or sensory deficit. Pulses: Carotid and radial pulses normal +2. Diagnostic tests reviewed for today's visit: Lab Value Units Date High Low HB No results within date range. HCT No results within date range. WBC No results within date range. PLT No results within date range. NA No results within date range. K No results within date range. GLUC No results within date range. BUN No results within date range. CREAT No results within date range. PTSEC No results within date range. INR No results within date range. APTT No results within date range. ALT No results within date range. AST No results within date range. TBILI No results within date range. TSH No results within date range. Lab Value Units Date High Low HCGQT No results within date range. UHCG No results within date range. HCG, BODY* No results within date range. Lab Value Units Date High Low ABORHD No results within date range. ABSCREEN No results within date range. No results found for: HBA1C Most recent labs Most recent Echo Most recent stress test Assessment ASSESSMENT Asthma - Condition is stable. Symbicort BID, PRN albuterol rarely uses. Diabetes - Last A1C 6.8 (04/2017). On PO Rx. HTN - BP 157/82 today. On Rx. Hyperlipidemia - On Rx. SUMA - Patient is not able to use CPAP/BIPAP IBS - on herbal supplements Mitral valve prolapse Anxiety - on herbal supplements PONV METS: Climb a flight of stairs or walk up a hill (5.50 METs) Patient denies any chest pain or undue shortness of breath with the above physical activity. ASA Class: 3 ANESTHESIA FINDINGS: Intubation History: No history of difficult intubation Significant Anesthesia Considerations: Postop nausea/vomiting Airway Exam: General: Normal appearance Mallampati Score is CLASS III ULBT: Class II - Lower incisors can bite the upper lip below the gen line Neck: Distance from hyoid to mentum during neck extension is at least 3 finger breaths, Limited movement extension and turning to one or both sides Mouth: Normal tongue size and Mouth opening greater than 2 finger breaths Dentition: Intact Airway History: No abnormal airway history STOP BANG Score: SUMA does not use CPAP/BiPAP PLAN This patient is optimally prepared for surgery pending LABS and EKG. EKG reviewed by MARK Lopez to proceed with surgery. CONSULTS: Patient does not require consults for optimization at this time. The Following Tests/Procedures Have Been Initiated: Orders Placed This Encounter CBC + DIFF BMP HGB A1C TYPE + SCREEN,30 DAY CONABO EKG COMPLETE Planned Anesthetic: General Instructions Given to Patient: Patient given verbal and written preop instructions and voices comprehension and compliance. SIGNATURE: Ruthy Soler APRN.JEMIMA PATIENT NAME: Joi Sauceda DATE: November 30, 2017 TIME: 3:34 PM PAGER/CONTACT #: SCREENING MAMM (CAD), Observed: 11/30/2017 Status: F Source: [place] 10:[address] [facility] REPOSITORY [facility] Imaging Services [address] [place] [address] SCREENING MAMM (CAD), BILAT MR#: [id number] Acct: [id number] Name: JOI SAUCEDA Rep #: [id number] : [id number] F 62 From: Ej Brooks MD PCP: Micah Pratt MD Status: REG CLI Study: SCREENING MAMM (CAD), BILAT Date of Exam: 11/30/17 Exam# [id number] Ordering Dr: Ray Hagen MD MAMMOGRAPHY - BILATERAL SCREENING REASON FOR EXAM: Female, 62 years old. Routine annual screening examination. PERTINENT HISTORY: Non-contributory. TECHNIQUE: Digital bilateral breast maria g (3D mammographic acquisition) in the CC and MLO projections. 2-D mediolateral oblique (MLO) and craniocaudad (CC) views of both breasts were obtained. CAD: Full Field Digital Mammography with Computer Added Detection was performed. COMPARISON: Comparison is made with prior study dated November 26, 2016 and October 09, 2015. FINDINGS: Breast Composition: There are scattered areas of fibroglandular density. There are no dominant masses or suspicious calcifications. No other significant abnormalities are identified. There has been no significant change since the prior study. HPBI/SCREENING MAMM (CAD), BILAT IMPRESSION: Stable bilateral screening mammogram. Yearly follow-up mammogram recommended. (A) ASSESSMENT CATEGORY: BIRADS Category 1: Negative. A letter regarding these results will be sent to the patient by the facility within 30 days. Approximately 10% of breast cancers are not detected by mammography. A normal mammogram should not delay biopsy of a clinically suspicious abnormality. [id number] Electronically Signed: Ej Brooks MD at 14:07 EDT Tel [phone], Service support , CC: Ray Hagen MD; Micah Pratt MD Public Relations Specialist: Signed HOSP Observed: 11/24/2017 Status: COMPLETED Source: [place] 12:00 AM [facility] REPOSITORY Patient:Joi Sauceda MRN: <[id number]> Height:5' 4.25(1.632 m) Weight:165 lb (74.844 kg) Outpatient Medications as of 12/03/17: MEDICATION, NON-DATABASE MEDICATION, NON-DATABASE CALCIUM CITRATE/VITAMIN D3 (CITRACAL + D ORAL) MEDICATION, NON-DATABASE TRIAMCINOLONE ACETONIDE (NASACORT NASAL) montelukast (SINGULAIR) 10 mg tablet budesonide-formoterol (SYMBICORT) 160-4.5 mcg/actuation inhaler Mucus Clearing Device (FLUTTER) brittaney losartan (COZAAR) 50 mg tablet albuterol HFA (PROAIR HFA) 90 mcg/actuation inhaler glimepiride (AMARYL) 4 mg tablet labetalol (TRANDATE) 300 mg tablet Flaxseed Oil 1,000 mg cap atorvastatin 20 mg tablet THERAPEUTIC MULTIVITAMIN TAB TRIAMTERENE-HYDROCHLOROTHIAZID 37.5 MG-25 MG TAB Admission/Clinic Administered Medications as of 12/03/17: ceFAZolin iv piggyback 2 g in D5W (iso-osmotic) 100 mL (ANCEF) lactated ringers infusion scopolamine 1 mg over 3 days 1 Patch (TRANSDERM-SCOP) scopolamine - VERIFY patch scopolamine - REMOVE PATCH Problem List: HTN (hypertension) [I10] Moderate persistent asthma without complication [J45.40] SUMA (obstructive sleep apnea) [G47.33] Type 2 diabetes mellitus with complication (HCC) [E11.8] HLD (hyperlipidemia) [E78.5] Mitral valve prolapse [I34.1] Allergies: Morphine steroids [Other] zesteretic [Other] Date Verified: 12/03/17 Lab Values Lab Value Units Date High Low POTA* 4.2 mmol/L 11/30/2017 5.1 3.7 CINDY* 42.2 % 11/30/2017 46.0 36.0 No progress notes entered within the past 30 days PROGRESS Observed: 10/13/2017 Status: COMPLETED Source: [place] 11:30 AM [facility] REPOSITORY HNO ID: [id number] Author: Michoacano Portillo Service: (none) Author Type: Physician Type: Progress Notes Filed: 10/13/2017 12:29 PM Note Text: HPI HISTORY OF PRESENT ILLNESS: Joi Sauceda is a 62 year old female, Ht 162.6 cm (5' 4) BMI 28.15 kg/m2, with a history of SUMA and asthma. She stopped using her CAP mask about 4 months ago. Pt started taking Plexus supplements and since started those supplements she has been sleeping better and her told her she stopped snoring. Pt reports the supplements have anti-inflammatory properties. She reports that she has lost 5lbs several inches off her waist and has gone down to pants sizes. She currently has a cold, with increased chest congestion. Occasionally she can cough up some discolored mucus. She denies any fevers. ASTHMA CONTROL TEST Date: 10/13/2017 1. In the last 4 weeks, how much of the time did your asthma keep you from getting as much done at work or home that you wanted to do? A little of the time (4) 2. In the last 4 weeks, how often have you had shortness of breath? Once or twice per week (4) 3. In the last 4 weeks, how often did your asthma symptoms (wheezing, coughing, shortness of breath, chest tightness or pain) wake you up at night or earlier than usual? Once or twice (4) 4. In the last 4 weeks, how often have you used your rescue inhaler or nebulizer medication (such as Albuterol, Proventil, Ventolin, Maxair, Xoponex, or Primatene Mist)? Once a week or less (4) 5. In the last 4 weeks, how would you rate your asthma control? Somewhat controlled (3) Total: 19 Review of Systems Constitutional: Negative. HENT: Positive for congestion. Eyes: Negative. Respiratory: Positive for cough and sputum production. + chest Congestion Cardiovascular: Negative. Gastrointestinal: Negative. Genitourinary: Negative. Musculoskeletal: Positive for back pain. Skin: Negative. Neurological: Negative. Endo/Heme/Allergies: Negative. Psychiatric/Behavioral: Negative. PAST MEDICAL HISTORY Diagnosis Date - Abnormal Papanicolaou smear of vagina and vaginal HPV - Asthma - GERD (gastroesophageal reflux disease) - HLD (hyperlipidemia) - HTN (hypertension) - Mitral valve disorders(424.0) - SUMA on CPAP - Other chest pain - Other malaise and fatigue - PMH - PAST MEDICAL HISTORY OF ELEVATED LIPIDS - PMH - PAST MEDICAL HISTORY OF Irregular Heartbeat - Shortness of breath PAST SURGICAL HISTORY Procedure Laterality Date - APPENDECTOMY - BLADDER SURGERY HX 12/2015 adjust bladder sling - COLPOSCOPY (VAGINOSCOPY) 2002 - ENDOMETRIAL BIOPSY 2002 - LIGATE FALLOPIAN TUBE Tubal ligation - PAST SURGICAL HISTORY OF 2003 spinal fusion - PAST SURGICAL HISTORY OF 2004, 2000 HERNIATED DISK - REMOVAL OF TONSILS,<12 Y/O Tonsillectomy - TOTAL ABDOM HYSTERECTOMY 02/2015 w/bladder sling FAMILY HISTORY Problem Relation Age of Onset - Heart Mother Pace Maker/Irregular Heartbeat - Hypertension Mother - Heart Father - Hypertension Father - Lipids Father High Cholesterol - Hypertension Brother Social History Marital status: Spouse name: MICAH Years of education: 12 Number of children: 3 Occupational History Occupation Employer Comment [employer] * Social History Main Topics Smoking status: Never Smoker Smokeless status: Never Used Alcohol use: No Drug use: No Sexual activity: Yes Partners with: Male control/protection: Surgical Comment: bilateral tubal ligation Current Meds phenazopyridine (PYRIDIUM, GERIDIUM) 200 mg tablet Take 200 mg by mouth three times daily as needed. losartan (COZAAR) 50 mg tablet Take 50 mg by mouth once daily. montelukast (SINGULAIR) 10 mg tablet Take 1 tablet by mouth once daily. budesonide-formoterol (SYMBICORT) 160-4.5 mcg/actuation inhaler Inhale 2 Puffs as instructed twice daily. albuterol HFA (PROAIR HFA) 90 mcg/actuation inhaler Inhale 2 Puffs as instructed every 4 hours as needed. glimepiride (AMARYL) 4 mg tablet Take 4 mg by mouth daily with breakfast. labetalol (TRANDATE) 300 mg tablet Take 150 mg by mouth twice daily. Flaxseed Oil 1,000 mg cap Take 1,000 mg by mouth twice daily. atorvastatin 20 mg tablet Take 20 mg by mouth once daily. CALCIUM CARBONATE ORAL Take 2 tablets by mouth once daily. THERAPEUTIC MULTIVITAMIN TAB Take one(1) tablet daily. COLACE 100 MG CAP Take one(1) capsule twice daily. TRIAMTERENE-HYDROCHLOROTHIAZID 37.5 MG-25 MG TAB Take one(1) tablet daily. glimepiride (AMARYL) 2 mg tablet oxybutynin XL (DITROPAN XL) 5 mg 24 hr tablet tiZANidine (ZANAFLEX) 4 mg tablet ELMIRON 100 mg capsule Take 100 mg by mouth twice daily. BP 138/66 Pulse 80 Resp 16 Ht 5' 4 (1.63m) Wt 164 lb (74.4kg) SpO2 97[ra]% LMP 07/04/2007 BMI 28.14 kg/(m2). Physical Exam Constitutional: She is oriented to person, place, and time and well-developed, well-nourished, and in no distress. No distress. HENT: Head: Normocephalic. Mouth/Throat: Oropharynx is clear and moist. No oropharyngeal exudate. Eyes: Right eye exhibits no discharge. Left eye exhibits no discharge. No scleral icterus. Neck: No JVD present. No tracheal deviation present. No thyromegaly present. Cardiovascular: Normal rate, regular rhythm and intact distal pulses. Exam reveals no gallop and no friction rub. No murmur heard. Pulmonary/Chest: Effort normal and breath sounds normal. No stridor. No respiratory distress. She has no wheezes. She has no rales. Abdominal: Soft. Bowel sounds are normal. She exhibits no distension. There is no tenderness. Musculoskeletal: Normal range of motion. She exhibits no edema, tenderness or deformity. Neurological: She is alert and oriented to person, place, and time. Gait normal. GCS score is 15. Skin: Skin is warm and dry. No rash noted. She is not diaphoretic. No erythema. No pallor. Psychiatric: Mood and affect normal. Spirometry 2014 FVC 2.8 L 83% FEV1 1.6 L 61% Ratio 57 ASSESSMENT/PLAN: 1. Moderate persistent asthma without complication - ICD9: 493.90, ICD10: J45.40 Mild persistent Asthma stable - Continue current meds - Avoidance of triggers recommended - MONTELUKAST 10 MG TABLET - BUDESONIDE-FORMOTEROL HFA 160 MCG-4.5 MCG/ACTUATION AEROSOL INHALER - MUCUS CLEARING DEVICE - I told her to call if her symptoms worsen and I may have to prescribe her a Z-Garcia. 2. SUMA (obstructive sleep apnea) - ICD9: 327.23, ICD10: G47.33 (primary diagnosis) - Patient needs a PSG to confirm SUMA is resolved, but she wishes to postpone ordering test until she is met her deductible this year. I told her to call when she is ready and I will order a split-night PSG Michoacano Portillo MD CNOV Observed: 10/13/2017 Status: COMPLETED Source: [place] 11:00 AM [facility] REPOSITORY [facility] JOI SAUCEDA ([id number]) 1955 F Date Time Provider Department 10/13/17 11:00 AM MICHOACANO PORTILLO [facility] During your visit today, we recorded the following information about you: Pulse Respiration Blood pressure Weight 80/minute 16/minute 138/66 74.4 kg Height 1.626 m Trina Ruiz 10/13/2017 11:22 AM Signed ASTHMA CONTROL TEST (2007 - ) 10/13/2017 ASTHMA WORK (2007) 4 A LITTLE OF THE TIME ASTHMA SOB (2007) 4 ONCE OR TWICE A WEEK ASTHMA SLEEP (2007) 4 ONCE OR TWICE ASTHMA MED (2007) 4 ONCE OR LESS A WEEK ASTHMA CONTROL (2007) 3 SOMEWHAT CONTROLLED ACT TOTAL SCORE 19 How likely are you to doze off or fall asleep in the following situations, in contrast to feeling just tired? Situation Sitting and reading 1 = Slight chance of dozing Watching TV 1 = Slight chance of dozing Sitting, inactive in a public place (e.g. a theatre or a meeting) 0 = Would never doze As a passenger in a car for an hour without a break 0 = Would never doze Lying down to rest in the afternoon when circumstances permit 1 = Slight chance of dozing Sitting and talking to someone 0 = Would never doze Sitting quietly after a lunch without alcohol 0 = Would never doze In a car, while stopped for a few minutes in traffic 0 = Would never doze Total: 3 Trina Portillo MD 10/13/2017 12:29 PM Signed HPI HISTORY OF PRESENT ILLNESS: Joi Sauceda is a 62 year old female, Ht 162.6 cm (5' 4ANDquot;) BMI 28.15 kg/m2, with a history of SUMA and asthma. She stopped using her CAP mask about 4 months ago. Pt started taking Plexus supplements and since started those supplements she has been sleeping better and her told her she stopped snoring. Pt reports the supplements have anti-inflammatory properties. She reports that she has lost 5lbs several inches off her waist and has gone down to pants sizes. She currently has a cold, with increased chest congestion. Occasionally she can cough up some discolored mucus. She denies any fevers. ASTHMA CONTROL TEST Date: 10/13/2017 1. In the last 4 weeks, how much of the time did your asthma keep you from getting as much done at work or home that you wanted to do? A little of the time (4) 2. In the last 4 weeks, how often have you had shortness of breath? Once or twice per week (4) 3. In the last 4 weeks, how often did your asthma symptoms (wheezing, coughing, shortness of breath, chest tightness or pain) wake you up at night or earlier than usual? Once or twice (4) 4. In the last 4 weeks, how often have you used your rescue inhaler or nebulizer medication (such as Albuterol, Proventil, Ventolin, Maxair, Xoponex, or Primatene Mist)? Once a week or less (4) 5. In the last 4 weeks, how would you rate your asthma control? Somewhat controlled (3) Total: 19 Review of Systems Constitutional: Negative. HENT: Positive for congestion. Eyes: Negative. Respiratory: Positive for cough and sputum production. + chest Congestion Cardiovascular: Negative. Gastrointestinal: Negative. Genitourinary: Negative. Musculoskeletal: Positive for back pain. Skin: Negative. Neurological: Negative. Endo/Heme/Allergies: Negative. Psychiatric/Behavioral: Negative. PAST MEDICAL HISTORY Diagnosis Date - Abnormal Papanicolaou smear of vagina and vaginal HPV - Asthma - GERD (gastroesophageal reflux disease) - HLD (hyperlipidemia) - HTN (hypertension) - Mitral valve disorders(424.0) - SUMA on CPAP - Other chest pain - Other malaise and fatigue - PMH - PAST MEDICAL HISTORY OF ELEVATED LIPIDS - PMH - PAST MEDICAL HISTORY OF Irregular Heartbeat - Shortness of breath PAST SURGICAL HISTORY Procedure Laterality Date - APPENDECTOMY - BLADDER SURGERY HX 12/2015 adjust bladder sling - COLPOSCOPY (VAGINOSCOPY) 2002 - ENDOMETRIAL BIOPSY 2002 - LIGATE FALLOPIAN TUBE Tubal ligation - PAST SURGICAL HISTORY OF 2003 spinal fusion - PAST SURGICAL HISTORY OF 2004, 2000 HERNIATED DISK - REMOVAL OF TONSILS,ANDlt;13 Y/O Tonsillectomy - TOTAL ABDOM HYSTERECTOMY 02/2015 w/bladder sling FAMILY HISTORY Problem Relation Age of Onset - Heart Mother Pace Maker/Irregular Heartbeat - Hypertension Mother - Heart Father - Hypertension Father - Lipids Father High Cholesterol - Hypertension Brother Social History Marital status: Spouse name: MICAH Years of education: 12 Number of children: 3 Occupational History Occupation Employer Comment Disability [employer] * Social History Main Topics Smoking status: Never Smoker Smokeless status: Never Used Alcohol use: No Drug use: No Sexual activity: Yes Partners with: Male control/protection: Surgical Comment: bilateral tubal ligation Current Meds phenazopyridine (PYRIDIUM, GERIDIUM) 200 mg tablet Take 200 mg by mouth three times daily as needed. losartan (COZAAR) 50 mg tablet Take 50 mg by mouth once daily. montelukast (SINGULAIR) 10 mg tablet Take 1 tablet by mouth once daily. budesonide-formoterol (SYMBICORT) 160-4.5 mcg/actuation inhaler Inhale 2 Puffs as instructed twice daily. albuterol HFA (PROAIR HFA) 90 mcg/actuation inhaler Inhale 2 Puffs as instructed every 4 hours as needed. glimepiride (AMARYL) 4 mg tablet Take 4 mg by mouth daily with breakfast. labetalol (TRANDATE) 300 mg tablet Take 150 mg by mouth twice daily. Flaxseed Oil 1,000 mg cap Take 1,000 mg by mouth twice daily. atorvastatin 20 mg tablet Take 20 mg by mouth once daily. CALCIUM CARBONATE ORAL Take 2 tablets by mouth once daily. THERAPEUTIC MULTIVITAMIN TAB Take one(1) tablet daily. COLACE 100 MG CAP Take one(1) capsule twice daily. TRIAMTERENE-HYDROCHLOROTHIAZID 37.5 MG-25 MG TAB Take one(1) tablet daily. glimepiride (AMARYL) 2 mg tablet oxybutynin XL (DITROPAN XL) 5 mg 24 hr tablet tiZANidine (ZANAFLEX) 4 mg tablet ELMIRON 100 mg capsule Take 100 mg by mouth twice daily. BP 138/66 Pulse 80 Resp 16 Ht 5' 4ANDquot; (1.63m) Wt 164 lb (74.4kg) SpO2 97[ra]% LMP 07/04/2007 BMI 28.14 kg/(m2). Physical Exam Constitutional: She is oriented to person, place, and time and well-developed, well-nourished, and in no distress. No distress. HENT: Head: Normocephalic. Mouth/Throat: Oropharynx is clear and moist. No oropharyngeal exudate. Eyes: Right eye exhibits no discharge. Left eye exhibits no discharge. No scleral icterus. Neck: No JVD present. No tracheal deviation present. No thyromegaly present. Cardiovascular: Normal rate, regular rhythm and intact distal pulses. Exam reveals no gallop and no friction rub. No murmur heard. Pulmonary/Chest: Effort normal and breath sounds normal. No stridor. No respiratory distress. She has no wheezes. She has no rales. Abdominal: Soft. Bowel sounds are normal. She exhibits no distension. There is no tenderness. Musculoskeletal: Normal range of motion. She exhibits no edema, tenderness or deformity. Neurological: She is alert and oriented to person, place, and time. Gait normal. GCS score is 15. Skin: Skin is warm and dry. No rash noted. She is not diaphoretic. No erythema. No pallor. Psychiatric: Mood and affect normal. Spirometry 2014 FVC 2.8 L 83% FEV1 1.6 L 61% Ratio 57 ASSESSMENT/PLAN: 1. Moderate persistent asthma without complication - ICD9: 493.90, ICD10: J45.40 Mild persistent Asthma stable - Continue current meds - Avoidance of triggers recommended - MONTELUKAST 10 MG TABLET - BUDESONIDE-FORMOTEROL HFA 160 MCG-4.5 MCG/ACTUATION AEROSOL INHALER - MUCUS CLEARING DEVICE - I told her to call if her symptoms worsen and I may have to prescribe her a Z-Garcia. 2. SUMA (obstructive sleep apnea) - ICD9: 327.23, ICD10: G47.33 (primary diagnosis) - Patient needs a PSG to confirm SUMA is resolved, but she wishes to postpone ordering test until she is met her deductible this year. I told her to call when she is ready and I will order a split-night PSG Michoacano Portillo MD Referring Provider: MICHOAACNO PORTILLO [[id number]] Allergies As of Date: 10/13/2017 Noted Allergy Reaction MORPHINE 08/28/2005 2 - Rash steroids [Other] 08/28/2005 2 - Rash zesteretic [Other] 08/28/2005 4 - Hives Date Reviewed: 10/13/2017 Reviewed by: Michoacano Portillo - Fully Assessed Reason for Visit: Asthma [11] Sleep Apnea [1361] Primary Visit Diagnosis:SUMA (obstructive sleep apnea) [G47.33] Other Visit Diagnosis:Moderate persistent asthma without complication [J45.40] Order(s):montelukast (SINGULAIR) 10 mg tabletTake 1 tablet by mouth once daily.Disp: 90 tabletRfl: 3 budesonide-formoterol (SYMBICORT) 160-4.5 mcg/actuation inhalerInhale 2 Puffs as instructed twice daily.Disp: 1 InhalerRfl: 11 Mucus Clearing Device (FLUTTER) devi1 DeviceDisp: 1 DeviceRfl: 0 Prescriptions as of 10/13/2017 Sig: PHENAZOPYRIDINE 200 MG TABLET Take 200 mg by mouth three ti* MONTELUKAST 10 MG TABLET Take 1 tablet by mouth once d* BUDESONIDE-FORMOTEROL HFA 160* Inhale 2 Puffs as instructed * LOSARTAN 50 MG TABLET Take 50 mg by mouth once jamin* ALBUTEROL SULFATE HFA 90 MCG/* Inhale 2 Puffs as instructed * GLIMEPIRIDE 4 MG TABLET Take 4 mg by mouth daily with* LABETALOL 300 MG TABLET Take 150 mg by mouth twice da* FLAXSEED OIL 1,000 MG CAPSULE Take 1,000 mg by mouth twice * ATORVASTATIN 20 MG TABLET Take 20 mg by mouth once jamin* CALCIUM CARBONATE ORAL Take 2 tablets by mouth once * * THERAPEUTIC MULTIVITAMIN TABL* Take one(1) tablet daily. * COLACE 100 MG CAPSULE Take one(1) capsule twice rosalinda* * TRIAMTERENE 37.5 MG-HYDROCHLO* Take one(1) tablet daily. GLIMEPIRIDE 2 MG TABLET OXYBUTYNIN CHLORIDE ER 5 MG T* TIZANIDINE 4 MG TABLET MUCUS CLEARING DEVICE 1 Device ELMIRON 100 MG CAPSULE Take 100 mg by mouth twice da* Medication notes this encounter GLIMEPIRIDE 2 MG TABLET >> Trina Ruiz 10/13/2017 11:18 AM >> TRINA RUIZ anabella Oct 13, 2017 11:18 AM Not taking OXYBUTYNIN CHLORIDE ER 5 MG TABLET,EXTENDED RELEASE 24 HR >> Trina Ruiz 10/13/2017 11:18 AM >> TRINA RUIZ Oct 13, 2017 11:18 AM Not taking TIZANIDINE 4 MG TABLET >> Trina Ruiz 10/13/2017 11:19 AM >> TRINA RUIZ Oct 13, 2017 11:19 AM Not taking ELMIRON 100 MG CAPSULE >> Trina Ruiz 10/13/2017 11:17 AM >> TRINA RUIZ Oct 13, 2017 11:17 AM Not taking Problem List As Of Date 10/13/2017 Noted Resolved SHORTNESS OF BREATH [R06.02] MALAISE AND FATIGUE NEC [R53.81, R53.83] CHEST PAIN NEC [R07.89] ASTHMA UNSPECIFIED [J45.909] INVALID FOR* Cystocele [VDK1038] INVALID FOR* HTN (hypertension) [I10] INVALID FOR* Moderate persistent asthma without complication*INVALID FOR* SUMA (obstructive sleep apnea) [G47.33] INVALID FOR* Visit Notes: >> Trina Machuca Oct 13, 2017 11:20 AM Status: Signed ASTHMA CONTROL TEST (2007 - ) 10/13/2017 ASTHMA WORK (2007) 4 A LITTLE OF THE TIME ASTHMA SOB (2007) 4 ONCE OR TWICE A WEEK ASTHMA SLEEP (2007) 4 ONCE OR TWICE ASTHMA MED (2007) 4 ONCE OR LESS A WEEK ASTHMA CONTROL (2007) 3 SOMEWHAT CONTROLLED ACT TOTAL SCORE 19 How likely are you to doze off or fall asleep in the following situations, in contrast to feeling just tired? Situation Sitting and reading 1 = Slight chance of dozing Watching TV 1 = Slight chance of dozing Sitting, inactive in a public place (e.g. a theatre or a meeting) 0 = Would never doze As a passenger in a car for an hour without a break 0 = Would never doze Lying down to rest in the afternoon when circumstances permit 1 = Slight chance of dozing Sitting and talking to someone 0 = Would never doze Sitting quietly after a lunch without alcohol 0 = Would never doze In a car, while stopped for a few minutes in traffic 0 = Would never doze Total: 3 Trina Ruiz [facility] Prescriptions ordered this encounter Disp Refills Start End MONTELUKAST 10 MG TABLET 90 t* 3 10/13/2017 Class: [facility] Route: ORAL Sig: Take 1 tablet by mouth once daily. BUDESONIDE-FORMOTEROL HFA 160 MCG-4.* 1 In* 11 10/13/2017 Route: INHALATION Sig: Inhale 2 Puffs as instructed twice daily. MUCUS CLEARING DEVICE 1 De* 0 10/13/2017 Class: Print RX Si Device Medications Discontinued During This Encounter montelukast (SINGULAIR) 10 mg tablet 30 t* 11 08/12/2016 10/13/2017 Class: Print RX Route: ORAL Sig: Take 1 tablet by mouth once daily. Disc: Reason for discontinue is not on file. budesonide-formoterol (SYMBICORT) 16* 1 In* 11 08/12/2016 10/13/2017 Class: Print RX Route: INHALATION Sig: Inhale 2 Puffs as instructed twice daily. Disc: Reason for discontinue is not on file. Disposition: Return in about 6 months (around 04/12/2018) for Asthma, COPD. Follow-up and Disposition History Recorded Questionnaire: ASTHMA CONTROL TEST Last 4 weeks, your asthma limited your activity at work or home: -> 4 A LITTLE OF THE TIME Past 4 weeks, how often have you had shortness of breath? -> 4 ONCE OR TWICE A WEEK Past 4 weeks: Asthma symptoms woke you at night or earlier than usual? -> 4 ONCE OR TWICE Past 4 weeks: How often did you use rescue inhaler or nebulizer med? -> 4 ONCE OR LESS A WEEK Rate your Asthma Control during the past 4 weeks: -> 3 SOMEWHAT CONTROLLED ACT TOTAL SCORE: -> 19 Letter Text Encounter Status:Closed by MICHOACANO PORTILLO MD on 10/13/17 ALLERGIES ALLERGIES DATE TYPE / CODE NAME / CODE REACTION SEVERITY SOURCE 12/28/2015 Drug lisinopril/F00 Rash Unknown [place] Allergy/[id number](S [id number]([facility] ) Hospital Repository 12/28/2015 Drug morphine/F0060 Rash Unknown [place] Allergy/[id number](S 70931(RXNORM) [facility] 12/28/2015 Drug hydrochlorothi Rash Unknown [place] Allergy/[id number](S azide/[id number] [facility] Hospital Repository 12/28/2015 Miscellaneous STERIODS Rash Unknown [place] Allergy/[id number]([facility]) Hospital Repository 08/28/2005 DRUG MORPHINE RASH Scott INGREDI/[id number](S [facility] Other NOMED CT) [place] Repository 08/28/2005 Miscellaneous OTHER RASH [place] Allergy/[id number]([facility]) [place] Repository ENCOUNTERS ENCOUNTERS ADMIT/DISCHARGE ACCOUNT NUMBER ADMITTING ENCOUNTER LOCATION SOURCE CLASS 08/27/2018 [id number] [facility] ding:MFPLAB Repository 07/28/2018/07/29/[id number] Main [place] Repository 02/22/2018 [id number] [facility] ding:MFPLAB Repository 01/05/2018 [id number] [facility] Repository 12/15/2017 [id number] [facility] ding:LABSPEC Repository 12/03/2017/12/04/19 [id number] [facility] Ambulatory [address] Other [place] Repository 11/30/2017 [id number] [facility] Repository 11/30/2017/12/02/19 [id number] Ambulatory [address] Repository 11/30/2017 [id number] Ambulatory [place] [facility] ding:BI Repository 11/30/2017/12/02/19 [id number] Ambulatory [address] Repository 11/27/2017 [id number] Ambulatory [facility] Repository 10/13/2017/10/14/19 [id number] Ambulatory [address] Repository PAYERS PAYERS ENCOUNTER GUARANTOR PAYER SUBSCRIBER SOURCE 08/27/2018 Micah E Primary JOI L [place] [id number] [place] Insurance:AETNAPolicy FOSTERDOB[facility] [place] Number: [id number] Hospital [address]Qom: 330 [id number] Repository [phone] () Date:[id number] [address]XX: 08/27/2018 Secondary NOT GIVENUNK [place] Insurance:SELF PAY [facility] [place] Number: Effective Repository Date:2018-08-27 02/22/2018 Micah E Primary JOI L [place] [id number] [place] Insurance:AETNAPolicy FOSTERDOB: [facility] [place] Number: [id number] Hospital [address]Cld: 330 [id number] Repository [phone] () Date:7845-02-09[address] [address]NT: 02/22/2018 Secondary NOT GIVENUNK [place] Insurance:SELF PAY [facility] [place] Number: Effective Repository Date:2018-02-22 01/05/2018 Joi Primary Joi [facility] FosterDOB: Insurance:AetnaPolicy FosterDOB: System Number: Effective [id number] Repository [place] [facility] [place] [address] 12/15/2017 Micah E Primary JOI L [place] [id number] [place] Insurance:AETNAPolicy MONTICELLODOB: [facility] [place] Number: [id number] Hospital [address]Axe: [id number] Repository [phone] Date:[id number] ([place]) [address]OB MELA RICHARDS [address]VU: 12/15/2017 Secondary NOT GIVENUNK [place] Insurance:SELF PAY [facility]: Effective Repository Date:2017-12-15 11/30/2017 Micah [id number] [place] Insurance:AETNAKeyshawn SAUCEDADOB: [facility] [place], [place] Number: [id number] Hospital [address]Nrv: [id number] Repository [phone] Date:[id number] ([place]) [id number] [address]ZI: 11/30/2017 Secondary NOT GIVENUNK [place] Insurance:SELF PAY [facility] [place] Number: Effective Repository Date:2017-10-19
== END ==
PROVIDERS: Family Provider Family Medicine; PCP Family Medicine; Visit Provider Family Medicine
DX: E78.5 Hyperlipidemia, unspecified (principal); E11.9 Type 2 diabetes mellitus without complications
CPT/HCPCS: 36415; 80061; 82947; 83036

== ENCOUNTER → 2018-11-01 17:54 | Outpatient (CLI) | payer OTHER, SELFPAY | PROVIDERS: Family Provider Family Medicine; PCP Family Medicine; Visit Provider Urology | DX: R30.0 Dysuria (principal) | CPT/HCPCS: 87086; 87088 ==

== ENCOUNTER → 2018-12-08 12:16 | Outpatient (CLI) | payer OTHER, SELFPAY ==
--- NOTE | 2018-12-08 12:19 | BI_ITS ---
MAMMOGRAPHY - BILATERAL SCREENING REASON FOR EXAM: Female, 63 years old. Routine annual screening examination. PERTINENT HISTORY: Non-contributory. TECHNIQUE: Digital bilateral breast maria g (3D mammographic acquisition) in the CC and MLO projections. 2-D mediolateral oblique (MLO) and craniocaudad (CC) views of both breasts were obtained. CAD: Full Field Digital Mammography with Computer Added Detection was performed. COMPARISON: Comparison is made with prior study dated November 30, 2017 and November 26, 2016. FINDINGS: Breast Composition: There are scattered areas of fibroglandular density. There is a new cluster of microcalcifications in the deep upper lateral aspect of the left breast. A biopsy is recommended for further evaluation. No other significant abnormalities are identified. BI/SCREENING MAMM (CAD), BILAT IMPRESSION: New cluster of microcalcifications in the deep upper lateral aspect of the left breast as described. A biopsy is recommended for further evaluation. ASSESSMENT CATEGORY: BIRADS Category 4: Suspicious - Biopsy Should Be Considered. A letter regarding these results will be sent to the patient by the facility within 30 days. Approximately 10% of breast cancers are not detected by mammography. A normal mammogram should not delay biopsy of a clinically suspicious abnormality. [id number] Electronically Signed: Ej Brooks, at 14:26 EDT , Service support ,
== END ==
PROVIDERS: Family Provider Family Medicine; PCP Family Medicine; Referring Provider Obstetrics & Gynecology; Visit Provider Obstetrics & Gynecology
DX: Z12.31 Encounter for screening mammogram for malignant neoplasm of breast (principal)
CPT/HCPCS: 77063; 77067

== ENCOUNTER → 2019-02-28 | Outpatient (CLI) | payer OTHER, SELFPAY ==
[2019-02-28 15:52] LABS: Anion Gap 10 (5-15); BUN 23 mg/dL (7-18); BUN/Creat Ratio 27.5 RATIO (10-20); Calcium,Total 9.9 mg/dL (8.5-10.1); Chloride 105 mmol/L (98-107); Creatinine, Serum 0.84 mg/dL (0.55-1.02); EST Glomerular Filtration Rate 73 mL/min (>60); Est Glom Filt Rate - Afr Amer 88 mL/min (>60); Glucose 70 mg/dL (74-106); Phosphorus 3.6 mg/dL (2.5-4.9); Sodium Level 144 mmol/L (136-145)
[2019-02-28 16:05] LABS: PTHIN 25.5 pg/mL (18.4-80.1)
== END | disposition home or self-care (01) ==
LOC: MFPLAB 13:51
PROVIDERS: Family Provider Family Medicine; PCP Family Medicine; Referring Provider Family Medicine; Visit Provider Family Medicine
DX: E83.52 Hypercalcemia (principal)
CPT/HCPCS: 80048; 83970; 84100

== ENCOUNTER → 2019-07-15 | Outpatient (CLI) | payer OTHER, SELFPAY ==
[2019-07-15 12:38] LABS: Erythrocyte Sedimentation Rate 9 mm/hr (0-30)
[2019-07-15 12:42] LABS: Absolute Lymphocyte Count 1.25 X10^3/uL (0.83-4.51); Absolute Neutrophil Count 3.2 X10^3/uL (2.0-7.7); Basophil# 0.04 X10^3/uL; Basophil% 0.8 % (0-1); Eosinophil# 0.18 X10^3/uL; Eosinophils% 3.5 % (0-5); Hematocrit 41.8 % (37-47); Hemoglobin 13.9 g/dL (12.0-15.0); Lymphocyte # 1.25 X10^3/ul (4.0); Lymphocyte % 24.6 % (19-41); Mean Corp Hgb Conc 33.3 g/dL (32-36); Mean Corpuscular Volume 93.3 fL (81-99); Mean Platelet Vol. 9.9 fl (6.2-12.0); Monocyte# 0.36 X10^3/uL; Monocyte% 7.1 % (0-10); NRBC Flagged by Analyzer 0 % (0-5); Neutrophil # 3.24 X10^3/uL (2.7-7.7); Neutrophil % 63.6 % (47-70); Platelet Count 193 K/mm3 (150-450); RBC Distribution Width CV 12.2 % (11.6-14.6); RBC Distribution Width SD 42.2 fl (35.1-43.9); Red Blood Count 4.48 M/mm3 (4.2-5.4); White Blood Count 5.1 K/mm3 (4.4-11.0)
[2019-07-15 12:52] LABS: Hemoglobin A1c 6.2 % (4.2-6.3); PTHIN 32.5 pg/mL (18.4-80.1); Progesterone Level 0.05 ng/mL (See Comment); T3 Total - Triiodothyronine 1.11 ng/mL (0.6-1.81); Vitamin B12 1162 pg/mL (211-911); Vitamin D,25 Hydroxy 36.7 ng/mL (29.95-100.01)
[2019-07-15 12:57] LABS: Homocysteine 6.4 umol/L (3.2-10.7)
[2019-07-15 13:37] LABS: ALB/GLOB Ratio 1.2 RATIO (0.9-2.4); AST(SGOT) 31 U/L (15-37); Alanine Aminotransfer ALT/SGPT 44 U/L (13-56); Albumin, Serum 4.2 g/dL (3.2-5.0); Alkaline Phosphatase 83 U/L (45-117); Anion Gap 10 (5-15); BUN 14 mg/dL (7-18); BUN/Creat Ratio 13.6 RATIO (10-20); CRP < 2.90 mg/L (0.0-3.0); CRP, High Sensitivity Cardiac 0.85 mg/L; Calcium,Total 9.7 mg/dL (8.5-10.1); Chloride 103 mmol/L (98-107); Cholesterol 175 mg/dL (200); Creatinine, Serum 1.03 mg/dL (0.55-1.02); EST Glomerular Filtration Rate 57 mL/min (>60); Est Glom Filt Rate - Afr Amer 70 mL/min (>60); Ferritin 56 ng/mL (8-252); Globulin 3.6 g/dL (2.2-4.2); Glucose 166 mg/dL (74-106); High Density Lipoprotein 52 mg/dL; Iron 94 ug/dL (50-170); Magnesium 2.2 mg/dL (1.6-2.6); Potassium 3.7 mmol/L (3.5-5.1); Protein, Total 7.8 g/dL (6.4-8.2); Sodium Level 141 mmol/L (136-145); T4 Free Direct 0.86 ng/dL (0.76-1.46); Thyroid Stim Hormone (TSH) 1.75 uIU/mL (0.358-3.74); Triglycerides 123 mg/dL; Very Low Density Lipoprotein 25 mg/dL (5-40)
[2019-07-17 09:10] LABS: ANTINUCLEAR ANTIBODIES DIRECT Negative (Negative)
[2019-07-18 16:07] LABS: DHEA Sulfate 64.7 ug/dL (29.4-220.5); Testosterone, % Free 1.61 % (0.50-2.80); Testosterone, Free < 0.05 ng/dL (0.10-0.85); Testosterone, Total < 3 ng/dL (3-41); Thyroid Peroxidase AB 13 IU/mL (0-34)
[2019-07-18 18:50] LABS: Anti-Thyroglobulin AB < 1.0 IU/mL (0.0-0.9); Estrogen, Total, Serum 60 pg/mL (.); Sex Hormone-binding Globulin 59.7 nmol/L (17.3-125.0); Thyroglobulin, Serum Qt. 1.2 ng/mL (1.5-38.5)
== END | disposition home or self-care (01) ==
LOC: MTLAB 09:37
PROVIDERS: Family Provider Family Medicine; PCP Family Medicine
DX: E11.65 Type 2 diabetes mellitus with hyperglycemia (principal); R53.83 Other fatigue; D53.9 Nutritional anemia, unspecified; I67.82 Cerebral ischemia; I25.9 Chronic ischemic heart disease, unspecified; E06.3 Autoimmune thyroiditis; M19.90 Unspecified osteoarthritis, unspecified site; M81.8 Other osteoporosis without current pathological fracture; E28.9 Ovarian dysfunction, unspecified; M35.9 Systemic involvement of connective tissue, unspecified
CPT/HCPCS: 36415; 80053; 80061; 82306; 82607; 82627; 82672; 82728; 82746; 83036; 83090; 83525; 83540; 83735; 83970; 84144; 84270; 84402; 84403; 84432; 84436; 84439; 84443; 84480; 85025; 85652; 86038; 86140; 86141; 86376; 86800; 82626

== ENCOUNTER → 2019-09-15 13:17 | Outpatient (CLI) | payer OTHER, SELFPAY ==
[2019-09-15 14:50] LABS: Vitamin B12 > 2000 pg/mL (211-911)
[2019-09-15 15:22] LABS: Ferritin 43 ng/mL (8-252); Iron 92 ug/dL (50-170); Iron Binding Capacity,Total 341 ug/dL (250-450)
== END ==
LOC: LAB.FUTURE 13:22 → MTLAB 13:28
PROVIDERS: Family Provider Family Medicine; PCP Family Medicine
DX: D50.8 Other iron deficiency anemias (principal); E53.8 Deficiency of other specified B group vitamins; D53.9 Nutritional anemia, unspecified; D53.1 Other megaloblastic anemias, not elsewhere classified
CPT/HCPCS: 36415; 82607; 82728; 82746; 83540; 83550

== ENCOUNTER 2019-11-08 19:52 | Emergency (ER) | payer OTHER, SELFPAY ==
[2019-11-08 19:52] VITALS: BP 210/99; PULSE 84; RESP 16; TEMP 36.6; O2SAT 99; BMI 27.0
--- NOTE | 2019-11-08 20:18 | EKG12_ITS ---
Test Reason : HTN Blood Pressure : / mmHG Vent. Rate : 082 BPM Atrial Rate : 082 BPM P-R Int : 198 ms QRS Dur : 084 ms QT Int : 378 ms P-R-T Axes : 044 -66 029 degrees QTc Int : 441 ms Normal sinus rhythm Left axis deviation Low voltage QRS Inferior infarct (cited on or before 20-SEP-2012) Abnormal ECG Confirmed by KATY TURPIN ([id number]), editor news JAY HUSSEIN ([id number]) on 11/09/2019 2:56:24 PM Referred By: BERNIE Confirmed By:KATY TURPIN
--- NOTE | 2019-11-08 20:18 | CT_ITS ---
STUDY: CT BRAIN WITHOUT CONTRAST REASON FOR EXAM: Female, 64 years old. Headache FOR MONTHS, HTN TODAY RADIATION DOSAGE (If Supplied By Facility): CTDIvol = ( 44.99 ) mGy, DLP = ( 796.11 ) mGycm TECHNIQUE: Transaxial CT imaging of the brain was performed without administration of intravenous contrast material. Individualized dose optimization techniques were used for this CT. COMPARISON: No relevant priors. FINDINGS: Normal soft tissue structures. Normal calvarium. Normal size ventricles and extra-axial spaces for the patient''s age. Normal white matter tracts of the cerebral hemispheres. Normal basal ganglia and thalami. Normal brainstem. Normal cerebellum. There is no intracranial hemorrhage. There are no findings of an acute ischemic infarction. Normal visualized paranasal sinuses. CT/Brain/Head without Contrast IMPRESSION: Normal unenhanced CT scan of the brain. Electronically Signed: Lewis Colindres MD at 21:00 EST , Service support ,
--- NOTE | 2019-11-08 20:23 | ED.VIS.GEN ---
History of Present Illness Chief Complaint: Hypertension Informant: Patient Onset: Yesterday Narrative: Patient presents with complaint of headache and hypertension. Blood pressure today is 210/99. She states it was high yesterday when she was at her oncologist, 219/113. She states that the week prior to this her blood pressure was 130/80. 1 of her cancer drugs was stopped yesterday due to concern that this may be causing her hypertension. When blood pressure continued to rise today she came in for evaluation. She has had a headache since last February. She is been seeing neurology about this. They initially thought was secondary to low B12 levels. That is now corrected but she still has headache. She is currently on Topamax but reports no improvement. - Past Medical History (1) Breast cancer Status: Chronic (2) Mitral valve prolapse Status: Chronic (3) HTN (hypertension) Status: Chronic (4) Hyperlipemia Status: Chronic (5) GERD (gastroesophageal reflux disease) Status: Chronic Past Medical History - Allergies and Home Meds Allergies/Adverse Reactions: Allergies hydrochlorothiazide [From Zestoretic] Allergy (Verified 11/08/19 19:54) Rash lisinopril [From Zestoretic] Allergy (Verified 11/08/19 19:54) Rash morphine Allergy (Verified 11/08/19 19:54) Rash STERIODS Allergy (Uncoded 11/08/19 19:54) Rash Primary Care Physician: Yon Anton MD [Primary Care Provider] - 5-7 Days Prior records reviewed: Yes Surgical History: tonsillectomy, foot surgery, tubal ligation, back surgeries Lives: Spouse/ Significant Other Smoking Status: Never smoker Review of Systems General: Denies: Chills, Fever Eyes: Denies: Visual changes - bilaterally ENT: Denies: Bilateral ear pain Cardiovascular: Denies: Chest pain Respiratory: Denies: Dyspnea, Cough Gastrointestinal: Denies: Abdominal pain, Nausea, Vomiting Genitourinary: Denies: Dysuria Musculoskeletal: Denies: Extremity Pain Skin: Denies: Rash Neurological: Reports: Headache, - - Light sensitivity. Denies: Weakness, Parasthesia Allergy: Denies: Uticaria Physical Exam Vital Signs/Narrative: Vital Signs Temp Pulse Resp BP Pulse Ox 11/08/19 19:52 98 F 84 16 210/99 H 99 Inital Vital Signs reviewed: Yes General: Well nourished, Well developed Head: Normocephalic ENT: Moist mucous membranes Neck: Supple Cardiovascular: Regular rate, Regular rhythm Respiratory: No distress Abdomen: Soft, Nontender Extremities: Nontender Skin: Normal color Neurological: Alert, Oriented x3, Normal Strength, Normal Sensation Psychological: Normal affect Diagnostic/Tx/Re-eval Impressions Brain CT 11/08/19 20:18 IMPRESSION: Normal unenhanced CT scan of the brain. Electronically Signed: Lewis Colindres MD at 21:00 EST , Service support , 11/08/19 20:18 Brain/Head without Contrast [CT] Stat Laboratory Results 11/08/19 11/08/19 11/08/19 20:20 20:20 21:45 WBC 6.1 RBC 4.43 Hgb 13.6 Hct 40.1 MCV 90.5 MCH 30.7 MCHC 33.9 RDW Std Deviation 40.2 RDW Coeff of Hermilo 12.1 Plt Count 185 MPV 9.3 Immature Gran % (Auto) 0.300 Neut % (Auto) 54.4 Lymph % (Auto) 30.7 Hidalgo % (Auto) 9.0 Eos % (Auto) 4.8 Baso % (Auto) 0.8 Absolute Neuts (auto) 3.3 Absolute Lymphs (auto) 1.87 Nucleated RBC % 0 Sodium 144 Potassium 3.3 L Chloride 110 H Carbon Dioxide 27.0 Anion Gap 7 BUN 19 H Creatinine 1.23 H Estim Creat Clear Calc 40.43 Est GFR (MDRD) Af Amer 57 L Est GFR (MDRD) Non-Af 47 L BUN/Creatinine Ratio 15.4 Glucose 112 H Calcium 9.5 Urine Color Yellow Urine Clarity Clear Urine pH 8.0 Ur Specific [place] 1.015 Urine Protein Negative Urine Glucose (UA) Normal Urine Ketones Negative Urine Occult Blood Negative Urine Nitrite Negative Urine Bilirubin Negative Urine Urobilinogen Normal Ur Leukocyte Esterase Negative Urine RBC 0 SEEN Urine WBC 0-5 SEEN Ur Squamous Epith Cells 0 SEEN Ur Transition Epith Cell 0-5 SEEN Amorphous Sediment 1+ Urine Bacteria 0 SEEN Urine Mucus 0 SEEN - EKG Initial EKG Interpretation: Sinus Rhythm - Sinus at 82 with no acute ischemia. - Medical Decision Making Patient was given Toradol, Reglan, Benadryl, and IV fluids for headache. She was given initially 10 mg of labetalol. This did not change her blood pressure much and this was followed by a dose of 20 mg IV. Blood pressure is currently 157/72. Patient is resting comfortably. I did review her presentation and medications with Dr. Juares, on-call for her primary care physician. We will asked the patient to double her labetalol dose at baseline. She is to check her blood pressure regularly and keep a journal. If her systolic blood pressure is over 170 she is to take an extra dose of labetalol as well. This is discussed with patient and family. ED Disposition - Plan for ED Patient: Disposition: Home or Assisted Living Diagnosis: Hypertension Instructions: HYPERTENSION, Established Referrals: Yon Anton MD [Primary Care Provider] - 5-7 Days Additional Instructions: Double your Labetalol dose to 100mg daily. Check your blood pressure daily and keep a journal. If your systolic blood pressure is over 170, take an extra 50mg Labetalol. Follow-up with Dr Anton for repeat blood pressure check and medication adjustment.
[2019-11-08] MEDS: DiphenhydrAMINE 50 MG/ML Syringe 25 MG IV (20:34)
[2019-11-08] MEDS: Ketorolac 30 MG/ML Syringe IV (20:35)
[2019-11-08] MEDS: Metoclopramide 10 MG/2 ML Vial IV (20:36)
[2019-11-08 20:37] VITALS: BP 235/105
[2019-11-08 20:49] LABS: Absolute Lymphocyte Count 1.87 X10^3/uL (0.83-4.51); Absolute Neutrophil Count 3.3 X10^3/uL (2.0-7.7); Basophil# 0.05 X10^3/uL; Basophil% 0.8 % (0-1); Eosinophil# 0.29 X10^3/uL; Eosinophils% 4.8 % (0-5); Hematocrit 40.1 % (37-47); Hemoglobin 13.6 g/dL (12.0-15.0); Lymphocyte # 1.87 X10^3/ul (4.0); Lymphocyte % 30.7 % (19-41); Mean Corp Hgb Conc 33.9 g/dL (32-36); Mean Corpuscular Hgb 30.7 pg (27.0-32.0); Mean Corpuscular Volume 90.5 fL (81-99); Mean Platelet Vol. 9.3 fl (6.2-12.0); Monocyte# 0.55 X10^3/uL; NRBC Flagged by Analyzer 0 % (0-5); Neutrophil # 3.31 X10^3/uL (2.7-7.7); Neutrophil % 54.4 % (47-70); Platelet Count 185 K/mm3 (150-450); RBC Distribution Width CV 12.1 % (11.6-14.6); RBC Distribution Width SD 40.2 fl (35.1-43.9); Red Blood Count 4.43 M/mm3 (4.2-5.4); White Blood Count 6.1 K/mm3 (4.4-11.0)
[2019-11-08 21:02] VITALS: BP 204/78; PULSE 75; O2SAT 98
[2019-11-08 21:04] LABS: Anion Gap 7 (5-15); BUN 19 mg/dL (7-18); BUN/Creat Ratio 15.4 RATIO (10-20); Calcium,Total 9.5 mg/dL (8.5-10.1); Chloride 110 mmol/L (98-107); Creatinine, Serum 1.23 mg/dL (0.55-1.02); EST Glomerular Filtration Rate 47 mL/min (>60); Est Glom Filt Rate - Afr Amer 57 mL/min (>60); Estimated Creatinine Clearance 40.43 ml/min; Glucose 112 mg/dL (74-106); Potassium 3.3 mmol/L (3.5-5.1); Sodium Level 144 mmol/L (136-145)
[2019-11-08 21:54] LABS: Bacteria 0 SEEN /hpf (None Seen); Mucous, Urine 0 SEEN /hpf (<or=2+); Red Blood Cells-Urine 0 SEEN /hpf (0-5); Squamous Epithelial Cells - UA 0 SEEN /hpf (5-10)
[2019-11-08 21:55] LABS: Color, Urine Yellow (Yellow); Glucose, Dipstick Normal (Normal); Ketone-Dipstick Negative (Negative); Leukocyte Esterase-Dipstick Negative /ul (Negative); Nitrite-Dipstick Negative (Negative); Occult Blood-Urine Negative /ul (Negative); Protein-Dipstick Negative (Negative); Specific Gravity, Urine 1.015 (1.002-1.030); Urine Bilirubin Dipstick Negative (Negative); Urine Clarity Clear (Clear); Urine Urobilinogen Normal (Normal)
[2019-11-08 22:07] LABS: Amorphous Sediment 1+
[2019-11-08 22:09] LABS: Transitional Epithelial - Ur 0-5 SEEN /hpf (0-5); White Blood Cells 0-5 SEEN /hpf (0-5)
[2019-11-08 22:19] VITALS: BP 157/72; PULSE 73; RESP 17; O2SAT 96
[2019-11-08 22:44] VITALS: BP 156/67; PULSE 72; RESP 20; O2SAT 97
== END 2019-11-08 22:50 | disposition home or self-care (01) ==
PROVIDERS: Emergency Provider Emergency Medicine; PCP Family Medicine
DX: I10 Essential (primary) hypertension (principal); R51 Headache; C50.919 Malignant neoplasm of unspecified site of unspecified female breast; E78.5 Hyperlipidemia, unspecified; K21.9 Gastro-esophageal reflux disease without esophagitis; Z79.899 Other long term (current) drug therapy
CPT/HCPCS: 70450; 80048; 81001; 85025; 93005; 96374; 96375; 96376; 99284; J7030; A4216

== ENCOUNTER 2019-12-05 15:42 | Inpatient (IN) | payer OTHER, SELFPAY ==
[2019-12-05] VITALS (8 sets, daily range): BP systolic 111–188; BP diastolic 73–92; PULSE 90–106; RESP 14–22; TEMP 36.8–38.8; O2SAT 93–97; BMI 26.0; BMI 25.8
--- NOTE | 2019-12-05 15:56 | EKG12_ITS ---
Test Reason : CP SOB Blood Pressure : / mmHG Vent. Rate : 089 BPM Atrial Rate : 089 BPM P-R Int : 196 ms QRS Dur : 080 ms QT Int : 370 ms P-R-T Axes : 022 -61 011 degrees QTc Int : 450 ms Normal sinus rhythm Left axis deviation Inferior infarct , age undetermined Cannot rule out Anterior infarct , age undetermined Abnormal ECG Confirmed by MONICA MOJICA, TANIA ([id number]), restaurant expeditor PATRICIA PRATT ([id number]) on 12/08/2019 1:04:57 PM Referred By: REZA Confirmed By:TANIA ANDERSON MD
--- NOTE | 2019-12-05 15:59 | ED.VISSUMM ---
- ER Visit Summary Date of Service: 12/05/19 Chief Complaint: Cough History of Present Illness: The patient is a 64 F presenting with cough and intermittent fevers. Her symptoms started 2 weeks ago. She has had a temperature of 102 at home. Her last Tylenol was 5 hours prior to arrival. She has had decreased energy. She complains of productive cough and shortness of breath. She has chest pain with coughing. She denies sick contacts. Denies recent travel. She has been social distancing due to the coronavirus pandemic. She was advised by her primary care physician to come to the ED for further evaluation. Physical Examination: Vitals are stable. Temperature 99. Pulse ox 96% on room air. Alert no acute distress. HEENT exam is unremarkable. Pharynx is normal. Neck is supple. Lungs are clear and equal bilaterally. Heart is regular rate and rhythm. Abdomen is soft nontender nondistended. Extremities are unremarkable. Skin is warm and dry. No focal neurologic deficit. Remainder of exam is unremarkable. Emergency Department Course and Treatment: CBC unremarkable. Chemistries show glucose 232, creatinine 1.26. Troponin is negative. D-dimer elevated at 1.19. Chest x-ray shows there is a very subtle parenchymal opacity seen in association with the right lower lobe laterally. On this exam it projects between the anterior lateral fifth and sixth ribs. This may represent minimal atelectasis, cannot exclude a developing infiltrate. Due to elevated d-dimer, CTA chest shows normal CTA chest examination, without a demonstrated pulmonary embolism or arterial dissection. There are patchy hazy infiltrates in a predominantly peripheral distribution involving the left and right lower lobes, left lingula, and bilateral upper lobes. Due to the CT findings suspect covid. She was given Zosyn and vancomycin IV. She remains in isolation. She will be admitted. Discussed with Dr. Wise and Dr. Miramontes. Respiratory panel was ordered. Disposition: Admission Impression: Bilateral pneumonia, concern for covid This note was generated with [employer] dictation software. It may contain incorrect words, spelling, and punctuation that were not noted in review of the chart prior to signing ED Disposition - Plan for ED Patient: Referrals: Yon Anton MD [Primary Care Provider] -
--- NOTE | 2019-12-05 16:00 | RAD_ITS ---
STUDY: X-RAY CHEST REASON FOR EXAM: Female, 64 years old. sent by pcp for covid-19 test. fever and cough x 2 weeks TECHNIQUE: sent by pcp for covid-19 test. fever and cough x 2 weeks COMPARISON: Chest x-ray February 28, 2015 FINDINGS: There is a very subtle parenchymal opacity seen in association with the right lower lobe laterally. On the this exam it projects between the anterior lateral fifth and sixth ribs. This may represent minimal atelectasis, cannot exclude a developing infiltrate. There also appears subtle increased density in association with left lower lobe laterally but upon close inspection this appears to be chondromalacia of the anterior ribs and posterior ribs. I do not see a definitive infiltrate on the left. There is no demonstrated pleural abnormality. Normal size heart. Normal mediastinum and silverio. Normal visualized pulmonary arteries. Normal visualized aortic arch and descending thoracic aorta. Normal visualized thoracic spine. Thoracic stimulator device has been removed. Normal visualized ribs, clavicles, and shoulders. There is no demonstrated abnormality of the visualized soft tissue structures of the upper abdomen. RAD/Chest 1 View (Portable) IMPRESSION: There is a very subtle parenchymal opacity seen in association with the right lower lobe laterally. On the this exam it projects between the anterior lateral fifth and sixth ribs. This may represent minimal atelectasis, cannot exclude a developing infiltrate. Electronically Signed: Keira Hall MD at 16:43 EDT , Service support ,
[2019-12-05 16:12] LABS: Absolute Lymphocyte Count 0.81 X10^3/uL (0.83-4.51); Absolute Neutrophil Count 5.1 X10^3/uL (2.0-7.7); Eosinophil# 0.02 X10^3/uL; Eosinophils% 0.3 % (0-5); Hematocrit 36.3 % (37-47); Hemoglobin 12.2 g/dL (12.0-15.0); Lymphocyte # 0.81 X10^3/ul (4.0); Lymphocyte % 12.4 % (19-41); Mean Corp Hgb Conc 33.6 g/dL (32-36); Mean Corpuscular Hgb 30.2 pg (27.0-32.0); Mean Corpuscular Volume 89.9 fL (81-99); Mean Platelet Vol. 9.5 fl (6.2-12.0); Monocyte# 0.53 X10^3/uL; Monocyte% 8.1 % (0-10); NRBC Flagged by Analyzer 0 % (0-5); Neutrophil # 5.14 X10^3/uL (2.7-7.7); Neutrophil % 78.7 % (47-70); Platelet Count 167 K/mm3 (150-450); RBC Distribution Width CV 12.7 % (11.6-14.6); Red Blood Count 4.04 M/mm3 (4.2-5.4); White Blood Count 6.5 K/mm3 (4.4-11.0)
[2019-12-05] MEDS: Ipratropium/Albuterol Sulfate 3 ML AMPUL.NEB INHALATION (16:23)
[2019-12-05 16:29] LABS: Anion Gap 7 (5-15); BUN 15 mg/dL (7-18); BUN/Creat Ratio 11.9 RATIO (10-20); Calcium,Total 9.2 mg/dL (8.5-10.1); Chloride 106 mmol/L (98-107); Creatinine, Serum 1.26 mg/dL (0.55-1.02); EST Glomerular Filtration Rate 46 mL/min (>60); Est Glom Filt Rate - Afr Amer 55 mL/min (>60); Estimated Creatinine Clearance 39.46 ml/min; Glucose 232 mg/dL (74-106); Potassium 3.7 mmol/L (3.5-5.1); Sodium Level 137 mmol/L (136-145)
--- NOTE | 2019-12-05 16:34 | CT_ITS ---
STUDY: CTA CHEST REASON FOR EXAM: Female, 64 years old. CONCERNS FOR COVID-19. SHORTNESS OF BREATH, FEVER, COUGH, ILLNESS X 2 WEEKS, ELEVATED D-DIMER, PT STATES SHE HAS BEEN PRACTICING SOCIAL DISTANCING. RADIATION DOSAGE (If Supplied By Facility): CTDIvol = ( 8.625 ) mGy, DLP = ( 391.47 ) mGycm TECHNIQUE: The examination was performed with the intravenous administration of IV 100 mL Optiray. Post-processing of the angiographic images was performed, with multiplanar reformation and 3D reconstruction. Individualized dose optimization techniques were used for this CT. COMPARISON: None. FINDINGS: Normal enhancement of the main pulmonary artery and right and left pulmonary arteries. Normal enhancement of the bilateral peripheral pulmonary arteries. There is no demonstrated pulmonary embolism. Normal thoracic aorta and visualized great vessels. There is no demonstrated aortic dissection. Normal heart and pericardium. Normal mediastinum. Normal hilar regions. Normal visualized trachea and bronchi. The lungs are well expanded. There are patchy hazy infiltrates in a predominantly peripheral distribution involving the left and right lower lobes, left lingula, and bilateral upper lobes. Normal pleura. Normal chest wall structures. There are diffuse degenerative changes of the visualized thoracolumbar spine. Normal visualized upper abdomen. CT/CTA Chest W/WO Contrast IMPRESSION: Normal CTA chest examination, without a demonstrated pulmonary embolism or arterial dissection. There are patchy hazy infiltrates in a predominantly peripheral distribution involving the left and right lower lobes, left lingula, and bilateral upper lobes. Electronically Signed: Mello Alford MD at 17:19 EDT , Service support ,
--- NOTE | 2019-12-05 16:34 | ED.RN ---
notified Dr. Haro of elevated d-dimer
[2019-12-05 16:35] LABS: D-Dimer Quantitative (DVT/PE) 1.19 FEU/ug/m (0.27-0.49)
--- NOTE | 2019-12-05 17:37 | PCM.HP.STD ---
Problem List (1) Suspected 2019 novel coronavirus infection Status: Acute (2) Pneumonia Status: Acute Qualifiers: Pneumonia type: due to unspecified organism Laterality: bilateral Lung location: unspecified part of lung Qualified Code(s): J18.9 - Pneumonia, unspecified organism (3) Breast cancer Status: Chronic Qualifiers: Breast location: unspecified site of breast Estrogen receptor status: unspecified Patient sex: male Laterality: unspecified laterality Qualified Code(s): C50.929 - Malignant neoplasm of unspecified site of unspecified male breast (4) HTN (hypertension) Status: Chronic Qualifiers: Hypertension type: essential hypertension Qualified Code(s): I10 - Essential (primary) hypertension (5) Hyperlipemia Status: Chronic Qualifiers: Hyperlipidemia type: unspecified Qualified Code(s): E78.5 - Hyperlipidemia, unspecified (6) GERD (gastroesophageal reflux disease) Status: Chronic Qualifiers: Esophagitis presence: esophagitis presence not specified Qualified Code(s): K21.9 - Gastro-esophageal reflux disease without esophagitis History of Present Illness Date of Admission: 12/05/19 Chief Complaint: Dry cough, dyspnea, fever, arthralgia/myalgia, loose stool The patient is a 64 y/o F w/ PMHx: Asthma Hx Ductal Carcinoma s/p radiation therapy in remission (last ~ 1 year prior, s/p ENRIQUETA w/ BLSOO), HTN, Anxiety and Depression, Diabetes mellitus type II who presents to the [facility] ED on 12/05/19 with history of initially feeling poorly approximately 2 weeks prior with onset of dry cough, high-grade fevers up to 10 2-1 03 at home with severe arthralgia and myalgias, sore throat, dyspnea which is progressively been worsening with PCP call and at that time were mild therefore requested self quarantine at home however given worsening status she did call into the emergency room the prior Thursday to current presentation and they noted that if she worsen to present to the ED for evaluation with additionally noted 1 day of loose stools but no associated abdominal pain. Patient notes that her cough has only been mildly productive twice but minimal sputum and that she has not been wheezing. Work-up in the ED included T 99 however she had recent Tylenol, heart rate 100, BP 111/73, respiratory rate 16, 97% on room air, CBC with WC 6.5, hemoglobin 12.2, platelet 167 without severe left shift noted, d-dimer 1.19, BMP with BUN/creatinine 15/1.26, glucose 232, troponin less than 0.015, initial chest x-ray with subtle parenchymal opacity in the right lower lobe possibly atelectasis but cannot exclude developing infiltrate with follow-up CTPA given elevated d-dimer with noted patchy hazy infiltrates peripheral distribution involving the left and right lower lobes, left lingula and bilateral upper lobes. In the ED patient administered vanc, zosyn, duoneb, NS. Past Medical History Past Medical History (Chronic Problems): Chronic Problems Breast cancer (Chronic) Mitral valve prolapse (Chronic) HTN (hypertension) (Chronic) Hyperlipemia (Chronic) GERD (gastroesophageal reflux disease) (Chronic) Allergies hydrochlorothiazide [From Zestoretic] Allergy (Verified 12/05/19 15:47) Rash lisinopril [From Zestoretic] Allergy (Verified 12/05/19 15:47) Rash morphine Allergy (Verified 12/05/19 15:47) Rash STERIODS Allergy (Uncoded 12/05/19 15:47) Rash Home Medications: Ambulatory Orders Medication Instructions Recorded Calcium Carbonate/Vitamin D3 2 ea PO DAILY 11/08/19 [Caltrate 600 + D Soft Chew Tab] Clonazepam [Klonopin] 2 mg PO QHS 11/08/19 Cyanocobalamin (Vitamin B-12) 1,000 mcg PO DAILY 11/08/19 [Vitamin B12] Dextroamphetamine/Amphetamine 20 mg PO BID 11/08/19 [Adderall 20 mg Tablet] Fluticasone Propion/Salmeterol 2 puff IH BID PRN 11/08/19 [Fluticasone-Salmeterol 250-50] Folic Acid 0.4 mg PO DAILY@0800 11/08/19 Glimepiride [Amaryl] 4 mg PO BID 11/08/19 Labetalol [Trandate] 50 mg PO DAILY 11/08/19 Losartan Potassium [Cozaar] 50 mg PO DAILY 11/08/19 Montelukast [Singulair] 10 mg PO DAILY PRN 11/08/19 Sitagliptin Phosphate [Januvia] 100 mg PO DAILY 11/08/19 Topiramate [Topamax] 25 mg PO BID 11/08/19 Triamcinolone Acetonide [Nasacort] 2 spray NS QHS 11/08/19 buPROPion SR [Wellbutrin Sr] 100 mg PO BID 11/08/19 Surgical History: - - Lumbar back surgery x3, tonsillectomy, left breast lumpectomy, appendectomy, hysterectomy with bilateral salpingo-oophorectomy, bilateral foot surgery. Psychiatric History: Anxiety, Depression RN LIAISON History: No pertinent RN LIAISON history Lives: Spouse/ Significant Other Smoking Status: Never smoker Alcohol: None Drugs: None - *Family History Maternal History Items: - - Maternal and paternal family history of heart disease and hypertension. Paternal History Items: - - Maternal and paternal family history of heart disease and hypertension. Review of Systems Constitutional: Reports: Anorexia, Malaise, Weakness, Fatigue. Denies: Chills, Fever, Weight Change HEENT: Reports: Sore Throat. Denies: Head Aches, Sinus Congestion, Sinus Drainage Cardiovascular: Denies: Chest Pain, Palpitations Respiratory: Reports: Cough, Shortness of Breath, Shortness of breath at rest, Shortness of breath upon exertion. Denies: Sputum production, Wheezing Gastrointestinal: Reports: Diarrhea. Denies: Abdominal Pain, Nausea, Vomiting Genitourinary: Denies: Dysuria Musculoskeletal: Reports: Joint Pain, Muscle pain. Denies: Joint Tenderness Skin: Denies: Rash, Wounds Neurological: Denies: Numbness, Tingling, Focal weakness Psychiatric: Reports: Anxiety, Depression. Denies: Homicidal Ideations, Suicidal Ideations Hematologic/ Lymphatic: Denies: Easy Bruising, Easy Bleeding VTE Information - Inpt Only VTE Present on Admission: No VTE Mechan Device Prophylaxis: SCD's VTE Pharm Prophylaxis ordered?: Yes Patient Problems: Active and Suspected Problems Suspected 2019 novel coronavirus infection (Acute) Pneumonia (Acute) Subjective: Seated upright in ED bed, fatigued appearance, wearing mask. Objective: Physical Examination: General: awake, alert, oriented x 3 and cooperative, seated upright in the ED bed, fatigued and ill-appearing, wearing mask. Skin: normal color, turgor, no icterus, cyanosis. HEENT: AT/NC, EOMI, PERRLA, facemask in place, no carotid bruits or JVD noted. Lungs: Severely diffusely diminished, no obvious evidence of respiratory distress, no rales, ronchi or wheezing. Heart: Regular rate and rhythm; no gallop, rub audible. Abdomen: soft, NTTP, ND, normal BS, no HSM. Extremities: no cyanosis, clubbing, or edema. Neurological: patient awake, alert, oriented as noted; cognitive function intact; pupils equally reactive to light and accomodation; cranial nerves II-XII grossly normal, moving all 4 extremities, no focal deficits, strength moderately to severely global decrease secondary to acute presentation worsening status. Psychiatric: affect appears fatigued, flat, no acute evidence of depressive or anxiety feelings. - Physical Exam Vitals/I&O's: Vital Signs Temp Pulse Resp BP Pulse Ox 99.0 F 100 16 111/73 97 12/05/19 15:43 12/05/19 16:23 12/05/19 16:23 12/05/19 15:43 12/05/19 15:43 Oxygen Delivery Method Room Air Weight: 151 lb 14.376 oz Body Mass Index (BMI) 26.0 Finger Stick Blood Glucose 186 Microbiology Past 72 Hours 12/05/19 16:10 Mucosa - Nose Rapid RSV (DFA) - Final 12/05/19 16:10 Mucosa - Nose Influenza Types A,B Direct FA (RON) - Final Laboratory Results 12/05/19 16:00: WBC 6.5, RBC 4.04 L, Hgb 12.2, Hct 36.3 L, MCV 89.9, MCH 30.2, MCHC 33.6, RDW Std Deviation 42.0, RDW Coeff of Hermilo 12.7, Plt Count 167, MPV 9.5, Immature Gran % (Auto) 0.500, Neut % (Auto) 78.7 H, Lymph % (Auto) 12.4 L, [place] % (Auto) 8.1, Eos % (Auto) 0.3, Baso % (Auto) 0.0, Absolute Neuts (auto) 5.1, Absolute Lymphs (auto) 0.81 L, Nucleated RBC % 0 12/05/19 16:00: D-Dimer Quant (PE/DVT) 1.19 H* 12/05/19 16:00: Sodium 137, Potassium 3.7, Chloride 106, Carbon Dioxide 24.0, Anion Gap 7, BUN 15, Creatinine 1.26 H, Estim Creat Clear Calc 39.46, Est GFR (MDRD) Af Amer 55 L, Est GFR (MDRD) Non-Af 46 L, BUN/Creatinine Ratio 11.9, Glucose 232 H, Calcium 9.2, Troponin I < 0.015 Current Medications Levofloxacin (Levaquin Iv) 750 mg in 150 mls @ 100 mls/hr IV X1 ONE Stop: 12/05/19 18:22 Assessment/Plan All Active Problems Suspected 2019 novel coronavirus infection (Acute) Pneumonia (Acute) The patient is a 64 y/o F w/ PMHx: Asthma Hx Ductal Carcinoma, HTN, Anxiety and Depression, Diabetes mellitus type II who presents to the [facility] ED on 12/05/19 with history of initially feeling poorly approximately 2 weeks prior with onset of dry cough, fever. severe arthralgia and myalgias, sore throat, dyspnea worsening over the last 2 weeks. 1. General Malaise, Dry Cough, Fever, Dyspnea, Arthralgia/Myalgia, BL Pulmonary Infiltrates concerning for COVID-19 and BL PNA: Will admit to MS telemetry given underlying concerning pulmonary history in case of quick decline for closer monitoring, maintain on oxygen with wean as tolerated, continue home scheduled inhaler to avoid aerosolization, PRN albuterol, HOB, IS parameters w/ requested respiratory viral panel, COVID-19 testing if negative, will continue vancomycin and Zosyn with pending MRSA screen with de-escalation off antibiotic therapy pending further evaluation and plan repeat AM CXR, obtain sputum culture, urine antigens concurrently. 2. Chronic asthma: Given suspected [place] it 19 we will continue patient home inhaler to avoid aerosolization, PRN albuterol if necessary, no current aggressive wheezing therefore will defer steroids. 3. Hypertension: Continue home regimen including labetalol, losartan with hold parameters, PRN hydralazine. 4. Diabetes mellitus type II: Hold oral home regimen, ADA diet, accu checks w/ ISS. 5. Anxiety and depression: We will continue patient home Wellbutrin, clonazepam although cautiously and hold for any respiratory depression. 6. Chronic migraines: We will continue patient home Topamax regimen. 7. History of ductal carcinoma: History of left breast cancer as noted, status post radiation therapy and lumpectomy, last treatment 1 year prior, in remission. 8. DVT prophylaxis: SEDs, Lovenox. Inpatient E&M: 73534 Init Hosp L3
[2019-12-05] MEDS: Vancomycin IV 1,000 MG/200 ML BAG 200 MG IV (18:49)
--- NOTE | 2019-12-05 20:11 | PCM.RX.CS ---
Consult Pharmacy has been consulted to manage selected antiobiotic: Vancomycin Type of Consult: New start Prior Doses of Antibiotics Received/Current Regimen: Medications Discontinued Medications Vancomycin HCl (Vancomycin) 1,000 mg in 200 mls @ 200 mls/hr IV X1 ONE Stop: 12/05/19 18:59 Last Admin: 12/05/19 18:49 Dose: 200 mls/hr Documented by: Labs: Sodium 137 mmol/L (136-145) 12/05/19 16:00 Potassium 3.7 mmol/L (3.5-5.1) 12/05/19 16:00 Chloride 106 mmol/L (98-107) 12/05/19 16:00 Carbon Dioxide 24.0 mmol/L (21.0-32.0) 12/05/19 16:00 Anion Gap 7 (5-15) 12/05/19 16:00 BUN 15 mg/dL (7-18) 12/05/19 16:00 Creatinine 1.26 mg/dL (0.55-1.02) H 12/05/19 16:00 Est GFR (MDRD) Af Amer 55 mL/min (>60) L 12/05/19 16:00 Est GFR (MDRD) Non-Af 46 mL/min (>60) L 12/05/19 16:00 BUN/Creatinine Ratio 11.9 RATIO (10-20) 12/05/19 16:00 Glucose 232 mg/dL (74-106) H 12/05/19 16:00 Microbiology: Microbiology 12/05/19 16:10 Mucosa - Nose Rapid RSV (DFA) - Final 12/05/19 16:10 Mucosa - Nose Influenza Types A,B Direct FA (RON) - Final Weight used for dosin kg Estimated Creatinine Clearance: 40 ml/min Goal Trough: 15-20 mcg/mL Pharmacy Plan for Drug Dosing: Initial 1000mg IV vanc x1 given in Ed, continue with 500mg IV q12h with trough prior to 4th dose per policy. Pharmacy Service will continue to monitor and adjust dosing as required. Follow-Up Labs: Trough Vancomycin - 12/06 @ 0630
[2019-12-05] MEDS: 0.9% Normal Saline 1,000 ML 125 ML IV (20:13)
[2019-12-05 21:48] LABS: M R Staph aureus DNA By PCR Negative (Negative); Probe Check PASS; Specimen Processing Control PASS
[2019-12-05] MEDS: buPROPion (SR) 100 MG TABLET.SA PO (21:57)
[2019-12-05] MEDS: MELATONIN 3 MG TABLET PO (21:57)
[2019-12-05] MEDS: Famotidine 20 MG Tablet PO (21:57)
[2019-12-05] MEDS: Fluticasone 0.05% 1 SPRAY NASAL.SRY 2 SPRAY NASAL (21:57)
[2019-12-05] MEDS: hydrALAZINE 20 MG/ML Vial 10 MG IV (21:58)
[2019-12-05] MEDS: Acetaminophen 325 MG Tablet 650 MG PO (22:03)
[2019-12-05] MEDS: Insulin Lispro 100 UNIT/ML INSULN.PEN SC (22:06)
[2019-12-05 22:20] LABS: Bedside Glucose 207 mg/dL (70-110)
[2019-12-06] VITALS (18 sets, daily range): BP systolic 117–181; BP diastolic 56–86; PULSE 82–115; RESP 15–21; TEMP 36.8–38.2; O2SAT 94–98
[2019-12-06] MEDS: Acetaminophen 325 MG Tablet 650 MG PO ×3 (04:37→20:28)
[2019-12-06] MEDS: 0.9% Normal Saline 1,000 ML 125 ML IV (04:38)
[2019-12-06 05:41] LABS: Absolute Lymphocyte Count 0.98 X10^3/uL (0.83-4.51); Absolute Neutrophil Count 4.1 X10^3/uL (2.0-7.7); Basophil# 0.02 X10^3/uL; Basophil% 0.3 % (0-1); Eosinophil# 0.07 X10^3/uL; Eosinophils% 1.2 % (0-5); Hematocrit 33.5 % (37-47); Hemoglobin 11.3 g/dL (12.0-15.0); Lymphocyte # 0.98 X10^3/ul (4.0); Mean Corp Hgb Conc 33.7 g/dL (32-36); Mean Corpuscular Hgb 30.1 pg (27.0-32.0); Mean Corpuscular Volume 89.1 fL (81-99); Mean Platelet Vol. 9.6 fl (6.2-12.0); Monocyte# 0.61 X10^3/uL; Monocyte% 10.6 % (0-10); NRBC Flagged by Analyzer 0 % (0-5); Neutrophil # 4.06 X10^3/uL (2.7-7.7); Neutrophil % 70.2 % (47-70); Platelet Count 153 K/mm3 (150-450); RBC Distribution Width CV 12.7 % (11.6-14.6); RBC Distribution Width SD 41.3 fl (35.1-43.9); Red Blood Count 3.76 M/mm3 (4.2-5.4); White Blood Count 5.8 K/mm3 (4.4-11.0)
--- NOTE | 2019-12-06 05:55 | RAD_ITS ---
STUDY: X-RAY CHEST REASON FOR EXAM: Female, 64 years old. Dyspnea, cough, suspected COVID 19 TECHNIQUE: Single AP portable view of the chest. COMPARISON: 12/05/2019 FINDINGS: Monitor There is mild worsening of aeration in the left peripheral upper and mid lung parenchyma minimal linear changes in right lower lung periphery. There is no demonstrated pleural abnormality. Normal size heart. Normal mediastinum and silverio. Normal visualized pulmonary arteries. Normal visualized aortic arch and descending thoracic aorta. There are diffuse degenerative changes of the visualized thoracic spine. Normal visualized ribs, clavicles, and shoulders. There is no demonstrated abnormality of the visualized soft tissue structures of the upper abdomen. RAD/Chest 1 View (Portable) IMPRESSION: Worsening of aeration in the left lung. Findings may represent covid 19 inflammation Electronically Signed: Therese Valencia MD at 4:09 EDT , Service support ,
[2019-12-06] MEDS: 0.9% Saline Lock 10 ML Syringe IV (06:02)
[2019-12-06] MEDS: Vancomycin IV 500 MG/100 ML BAG 100 MG IV (06:02)
[2019-12-06 06:05] LABS: Anion Gap 10 (5-15); BUN 10 mg/dL (7-18); BUN/Creat Ratio 11.7 RATIO (10-20); Calcium,Total 8.4 mg/dL (8.5-10.1); Chloride 108 mmol/L (98-107); Creatinine, Serum 0.85 mg/dL (0.55-1.02); EST Glomerular Filtration Rate 71 mL/min (>60); Est Glom Filt Rate - Afr Amer 86 mL/min (>60); Glucose 127 mg/dL (74-106); Potassium 3.5 mmol/L (3.5-5.1); Sodium Level 139 mmol/L (136-145)
[2019-12-06] MEDS: Enoxaparin 40 MG/0.4 ML Syringe SC (06:06)
[2019-12-06 06:21] LABS: Bedside Glucose 139 mg/dL (70-110)
[2019-12-06] MEDS: Budesonide Respules 0.5 MG/2 ML AMPUL.NEB. INHALATION ×2 (07:17→19:20)
[2019-12-06] MEDS: Albuterol 2.5 MG/3 ML VIAL.NEB. INHALATION ×3 (07:17→19:20)
[2019-12-06] MEDS: Folic Acid 1 MG Tablet 0.5 MG PO (08:29)
[2019-12-06] MEDS: Labetalol 100 MG Tablet 50 MG PO (08:29)
[2019-12-06] MEDS: Losartan Potassium 50 MG Tablet PO (08:29)
[2019-12-06] MEDS: Famotidine 20 MG Tablet PO ×2 (08:29→20:28)
[2019-12-06] MEDS: Topiramate 25 MG Tablet PO (08:30)
[2019-12-06] MEDS: buPROPion (SR) 100 MG TABLET.SA PO ×2 (08:30→20:28)
[2019-12-06] MEDS: BENZOCAINE/MENTHOL 1 LOZENGE MUCOUS MEM ×2 (08:30→22:28)
[2019-12-06] MEDS: guaiFENesin 10 ML UDC (200MG/10ML) 20 ML PO ×2 (08:39→20:28)
--- NOTE | 2019-12-06 10:42 | PCM.HP.ID ---
Problem List (1) Suspected 2019 novel coronavirus infection Status: Acute Reason for Consult: covapril Consulted by: Dr. Miramontes History of Present Illness: The patient is a 64 year old F with h/o asthma, presented last night to ED with 2 weeks of dry cough, fever, aches, dyspnea. Some headache, no congestion. No abd pain. No sick contacts, no travel, no large groups of people. has been well. Over past few days, increasing dyspnea and weakness, felt like she was going to pass out in the shower. Came to ED, fever to 101.8, given levaquin x1, admitted on vanc/zosyn. Feeling slightly better this AM, still aching, dry cough. Full ROS performed and neg except as noted above. - Medical History Past Medical History (Chronic Problems): Chronic Problems Breast cancer (Chronic) Mitral valve prolapse (Chronic) HTN (hypertension) (Chronic) Hyperlipemia (Chronic) GERD (gastroesophageal reflux disease) (Chronic) Allergies/Adverse Reactions: Allergies hydrochlorothiazide [From Zestoretic] Allergy (Verified 12/05/19 15:47) Rash lisinopril [From Zestoretic] Allergy (Verified 12/05/19 15:47) Rash morphine Allergy (Verified 12/05/19 15:47) Rash STERIODS Allergy (Uncoded 12/05/19 15:47) Rash Home Medications: Ambulatory Orders Medication Instructions Recorded Calcium Carbonate/Vitamin D3 2 ea PO DAILY 11/08/19 [Caltrate 600 + D Soft Chew Tab] Clonazepam [Klonopin] 2 mg PO QHS 11/08/19 Cyanocobalamin (Vitamin B-12) 1,000 mcg PO DAILY 11/08/19 [Vitamin B12] Fluticasone Propion/Salmeterol 2 puff IH BID PRN 11/08/19 [Fluticasone-Salmeterol 250-50] Folic Acid 0.4 mg PO DAILY@0800 11/08/19 Glimepiride [Amaryl] 4 mg PO BID 11/08/19 Losartan Potassium [Cozaar] 50 mg PO DAILY 11/08/19 Montelukast [Singulair] 10 mg PO DAILY PRN 11/08/19 Sitagliptin Phosphate [Januvia] 75 mg PO DAILY 11/08/19 Triamcinolone Acetonide [Nasacort] 2 spray NS QHS 11/08/19 buPROPion SR [Wellbutrin Sr] 100 mg PO BID 11/08/19 Labetalol [Trandate] 200 mg PO BID 12/06/19 - Social History Tobacco Use: non-smoker Vital Signs Temp Pulse Resp BP Pulse Ox 98.3 F 98 18 141/75 H 94 12/06/19 08:23 12/06/19 08:23 12/06/19 08:23 12/06/19 08:23 12/06/19 08:23 Oxygen Delivery Method Room Air Weight: 68.2 kg Body Mass Index (BMI) 25.8 Finger Stick Blood Glucose 186 Microbiology Past 72 Hours 12/05/19 18:45 Respiratory Panel (PCR) - Final Mucosa - Nose 12/05/19 21:45 Streptococcus pneumoniae Antigen (M - Final Urine, Clean Catch 12/05/19 21:45 Legionella Antigen - Final Urine, Clean Catch 12/05/19 16:10 Rapid RSV (DFA) - Final Mucosa - Nose 12/05/19 16:10 Influenza Types A,B Direct FA (RON) - Final Mucosa - Nose Laboratory Tests Past 24 Hrs 12/05/19 12/05/19 12/05/19 16:00 16:00 16:00 WBC 6.5 RBC 4.04 L Hgb 12.2 Hct 36.3 L MCV 89.9 MCH 30.2 MCHC 33.6 RDW Std Deviation 42.0 RDW Coeff of Hermilo 12.7 Plt Count 167 MPV 9.5 Immature Gran % (Auto) 0.500 Neut % (Auto) 78.7 H Lymph % (Auto) 12.4 L [place] % (Auto) 8.1 Eos % (Auto) 0.3 Baso % (Auto) 0.0 Absolute Neuts (auto) 5.1 Absolute Lymphs (auto) 0.81 L Nucleated RBC % 0 D-Dimer Quant (PE/DVT) 1.19 H* Sodium 137 Potassium 3.7 Chloride 106 Carbon Dioxide 24.0 Anion Gap 7 BUN 15 Creatinine 1.26 H Estim Creat Clear Calc 39.46 Est GFR (MDRD) Af Amer 55 L Est GFR (MDRD) Non-Af 46 L BUN/Creatinine Ratio 11.9 Glucose 232 H Lactic Acid Calcium 9.2 Troponin I < 0.015 MRSA (PCR) 12/05/19 12/05/19 12/06/19 17:50 20:20 05:20 WBC 5.8 RBC 3.76 L Hgb 11.3 L Hct 33.5 L MCV 89.1 MCH 30.1 MCHC 33.7 RDW Std Deviation 41.3 RDW Coeff of Hermilo 12.7 Plt Count 153 MPV 9.6 Immature Gran % (Auto) 0.700 Neut % (Auto) 70.2 H Lymph % (Auto) 17.0 L [place] % (Auto) 10.6 H Eos % (Auto) 1.2 Baso % (Auto) 0.3 Absolute Neuts (auto) 4.1 Absolute Lymphs (auto) 0.98 Nucleated RBC % 0 D-Dimer Quant (PE/DVT) Sodium Potassium Chloride Carbon Dioxide Anion Gap BUN Creatinine Estim Creat Clear Calc Est GFR (MDRD) Af Amer Est GFR (MDRD) Non-Af BUN/Creatinine Ratio Glucose Lactic Acid 1.0 Calcium Troponin I MRSA (PCR) Negative 12/06/19 05:20 WBC RBC Hgb Hct MCV MCH MCHC RDW Std Deviation RDW Coeff of Hermilo Plt Count MPV Immature Gran % (Auto) Neut % (Auto) Lymph % (Auto) [place] % (Auto) Eos % (Auto) Baso % (Auto) Absolute Neuts (auto) Absolute Lymphs (auto) Nucleated RBC % D-Dimer Quant (PE/DVT) Sodium 139 Potassium 3.5 Chloride 108 H Carbon Dioxide 21.0 Anion Gap 10 BUN 10 Creatinine 0.85 Estim Creat Clear Calc 58.50 Est GFR (MDRD) Af Amer 86 Est GFR (MDRD) Non-Af 71 BUN/Creatinine Ratio 11.7 Glucose 127 H Lactic Acid Calcium 8.4 L Troponin I MRSA (PCR) - Other Studies Radiology: [] reviewed Other Studies: [] Route of nutrition/ use of supplements: [] Nutritional Intake: [] IV Site: [] [place] Catheter: [] - Physical Exam General: Alert, Oriented x3, Cooperative, No apparent distress HEENT: Atraumatic, PERRLA, EOMI Neck: Supple, No Nodes Lungs: Diminished Cardiovascular: Regular rate, Regular Rhythm Abdomen: Soft, Non Tender, Non-Distended Extremities: No edema Skin: No rashes IV Site: Peripheral, without redness Musculoskeletal: No Tenderness to Palpation of Joints or Extremities Neurological: Cranial nerves II-XII grossly intact - Assessment/Plan Antibiotics: [] Assessment/Plan: [] Active and Suspected Problems Suspected 2019 novel coronavirus infection (Acute) Pneumonia (Acute) fever, suspected COVID19 - will send COVID test, I filled out the PUI form. MRSA screen neg. CT showed bilat infiltrate. Narrow abx to ceftriaxone. Will follow, thank you, d/w primary team.
--- NOTE | 2019-12-06 11:46 | PCM.PN.HOSP ---
Patient Problems: Active and Suspected Problems Suspected 2018 novel coronavirus infection (Acute) Pneumonia (Acute) Reason for Visit: Acute viral syndrome Subjective: Patient is a 64-year-old lady who presented with dry cough shortness of breath fever as well as arthralgia and loose stools admitted to a monitored bed for subsequent management Objective: GENERAL: cooperative HEENT: Atraumatic; EYES; Anicteric, Normal Conjunctiva NECK; supple, normal thyroid, RESPIRATORY: Diminished to auscultation CARDIOVASCULAR: Regular S1 S2, GI: soft, normoactive bowel sounds, : No Renal angle tenderness; EXTREMITIES: No edema, no clubbing, MUSCULOSKELETAL: no muscle waisting NEURO: Awake; no lateralizing signs. SKIN: No Rash PSYCH; Flat affect Vitals/I&O's: Vital Signs Temp Pulse Resp BP Pulse Ox 98.3 F 98 18 141/75 H 94 12/06/19 08:23 12/06/19 08:23 12/06/19 08:23 12/06/19 08:23 12/06/19 08:23 Oxygen Delivery Method Room Air Weight: 68.2 kg Body Mass Index (BMI) 25.8 Finger Stick Blood Glucose 186 Intake and Output for Last 24 Hours 12/04/19 12/05/19 12/06/19 23:59 23:59 23:59 Intake Total 1432.50 / 1432.50 950.83 / 950.83 Balance 1432.50 / 1432.50 950.83 / 950.83 Microbiology Past 72 Hours 12/05/19 18:45 Mucosa - Nose Respiratory Panel (PCR) - Final 12/05/19 21:45 Urine, Clean Catch Streptococcus pneumoniae Antigen (M - Final 12/05/19 21:45 Urine, Clean Catch Legionella Antigen - Final 12/05/19 16:10 Mucosa - Nose Rapid RSV (DFA) - Final 12/05/19 16:10 Mucosa - Nose Influenza Types A,B Direct FA (RON) - Final Laboratory Results 12/05/19 16:00: WBC 6.5, RBC 4.04 L, Hgb 12.2, Hct 36.3 L, MCV 89.9, MCH 30.2, MCHC 33.6, RDW Std Deviation 42.0, RDW Coeff of Hermilo 12.7, Plt Count 167, MPV 9.5, Immature Gran % (Auto) 0.500, Neut % (Auto) 78.7 H, Lymph % (Auto) 12.4 L, [place] % (Auto) 8.1, Eos % (Auto) 0.3, Baso % (Auto) 0.0, Absolute Neuts (auto) 5.1, Absolute Lymphs (auto) 0.81 L, Nucleated RBC % 0 12/05/19 16:00: D-Dimer Quant (PE/DVT) 1.19 H* 12/05/19 16:00: Sodium 137, Potassium 3.7, Chloride 106, Carbon Dioxide 24.0, Anion Gap 7, BUN 15, Creatinine 1.26 H, Estim Creat Clear Calc 39.46, Est GFR (MDRD) Af Amer 55 L, Est GFR (MDRD) Non-Af 46 L, BUN/Creatinine Ratio 11.9, Glucose 232 H, Calcium 9.2, Troponin I < 0.015 12/05/19 17:50: Lactic Acid 1.0 12/05/19 20:20: MRSA (PCR) Negative 12/05/19 21:49: POC Glucose 207 H 12/06/19 05:20: WBC 5.8, RBC 3.76 L, Hgb 11.3 L, Hct 33.5 L, MCV 89.1, MCH 30.1, MCHC 33.7, RDW Std Deviation 41.3, RDW Coeff of Hermilo 12.7, Plt Count 153, MPV 9.6, Immature Gran % (Auto) 0.700, Neut % (Auto) 70.2 H, Lymph % (Auto) 17.0 L, [place] % (Auto) 10.6 H, Eos % (Auto) 1.2, Baso % (Auto) 0.3, Absolute Neuts (auto) 4.1, Absolute Lymphs (auto) 0.98, Nucleated RBC % 0 12/06/19 05:20: Sodium 139, Potassium 3.5, Chloride 108 H, Carbon Dioxide 21.0, Anion Gap 10, BUN 10, Creatinine 0.85, Estim Creat Clear Calc 58.50, Est GFR (MDRD) Af Amer 86, Est GFR (MDRD) Non-Af 71, BUN/Creatinine Ratio 11.7, Glucose 127 H, Calcium 8.4 L 12/06/19 06:09: POC Glucose 139 H Current Medications Acetaminophen (Tylenol) 650 mg PO Q6H PRN PRN PRN Reason: Pain Score 1-10/Temp > 100.7 F Last Admin: 12/06/19 04:37 Dose: 650 mg Documented by: Al Hydroxide/Mg Hydroxide (Mylanta Ii) 30 ml PO Q6H PRN PRN PRN Reason: Gastric Burning Albuterol Sulfate (Ventolin Aerosols) 2.5 mg INHALATION Q2H PRN PRN PRN Reason: Shortness of Breath/Wheezing Albuterol Sulfate (Ventolin Aerosols) 2.5 mg INHALATION Q6HWA.RT [facility] Last Admin: 12/06/19 07:17 Dose: 2.5 mg Documented by: Budesonide (Pulmicort Aerosol) 0.5 mg INHALATION Q12H.RT [facility] Last Admin: 12/06/19 07:17 Dose: 0.5 mg Documented by: Bupropion HCl (Wellbutrin Sr (100mg Tablets)) 100 mg PO BID [facility] Last Admin: 12/06/19 08:30 Dose: 100 mg Documented by: Clonazepam (Klonopin) 2 mg PO QHS [facility] Last Admin: 12/05/19 21:57 Dose: Not Given Documented by: Dextrose (D50w Syringe) 0 gm IV X1 PRN; Protocol PRN Reason: Hypoglycemia Enoxaparin Sodium (Lovenox) 40 mg SC DAILY@0600 [facility] Last Admin: 12/06/19 06:06 Dose: 40 mg Documented by: Famotidine (Pepcid) 20 mg PO BID [facility] Last Admin: 12/06/19 08:29 Dose: 20 mg Documented by: Fluticasone Propionate (Flonase Nasal [place]) 2 spray NASAL QHS [facility] Last Admin: 12/05/19 21:57 Dose: 2 spray Documented by: Folic Acid (Folic Acid) 0.5 mg PO DAILY@0800 [facility] Last Admin: 12/06/19 08:29 Dose: 0.5 mg Documented by: Glucagon () 1 mg IM .X1 PRN PRN Reason: Hypoglycemia Guaifenesin (Robitussin) 20 ml PO Q4H PRN PRN PRN Reason: COUGH Last Admin: 12/06/19 08:39 Dose: 20 ml Documented by: Hydralazine HCl (Apresoline Iv) 10 mg IV Q4H PRN PRN PRN Reason: SBP > 160 Last Admin: 12/05/19 21:58 Dose: 10 mg Documented by: Sodium Chloride () 250 mls @ 15 mls/hr IV .[id number] PRN PRN Reason: Saline Flush Sodium Chloride () 250 mls @ 15 mls/hr IV .[id number] PRN PRN Reason: Additional IVPB Infusion Ceftriaxone Sodium 2 gm/ (Sodium Chloride) 50 mls @ 100 mls/hr IV Q24 [facility] Insulin Human Lispro (Humalog Kwikpen (Bkc)) 0 unit SC ACHS [facility]; Protocol Last Admin: 12/06/19 06:10 Dose: Not Given Documented by: Labetalol HCl (Trandate) 50 mg PO DAILY [facility] Last Admin: 12/06/19 08:29 Dose: 50 mg Documented by: Losartan Potassium (Cozaar) 50 mg PO DAILY [facility] Last Admin: 12/06/19 08:29 Dose: 50 mg Documented by: Melatonin (Melatonin) 3 mg PO QHS PRN PRN PRN Reason: INSOMNIA Last Admin: 12/05/19 21:57 Dose: 3 mg Documented by: Montelukast Sodium (Singulair) 10 mg PO DAILY PRN PRN Reason: ALLERGIES Nitroglycerin (Nitrostat) 0.4 mg SUBLINGUAL Q5M PRN PRN Reason: CARDIAC/CHEST PAIN Nutritional Formula (Lactose Free) (Glucerna Shake) 120 ml PO 4X/DAY [facility] Ondansetron HCl (Zofran) 4 mg IV Q8H PRN PRN PRN Reason: NAUSEA/VOMITING Prochlorperazine Edisylate (Compazine Iv) 5 mg IV Q4H PRN PRN PRN Reason: Breakthrough nausea/vomiting Sodium Chloride () 10 - 40 ml IV UD PRN PRN Reason: SALINE FLUSH Last Admin: 12/06/19 06:02 Dose: 20 ml Documented by: Throat Lozenges (Cepacol Sore Throat Lozenge) 1 lozenge MUCOUS MEM Q2H PRN PRN PRN Reason: SORE THROAT Last Admin: 12/06/19 08:30 Dose: 1 lozenge Documented by: STROKE Vital Signs/Narrative: Vital Signs Temp Pulse Resp BP Pulse Ox 12/06/19 08:23 98.3 F 98 18 141/75 H 94 Medical Necessity - Tobacco Use Smoking Status: Never smoker Assessment/Plan All Active Problems Suspected 2018 novel coronavirus infection (Acute) Pneumonia (Acute) Patient is a 64-year-old lady who presented with dry cough shortness of breath fever as well as arthralgia and loose stools admitted to a monitored bed for subsequent management 1. Acute viral syndrome ?Suspected to be secondary to COVID19 infection. Imaging studies obtained on admission demonstrated patchy hazy infiltrates in a predominantly peripheral distribution involving the left and right lower lobes, left lingula, and bilateral upper lobes. Patient admitted to monitored bed for symptomatic management with consultation placed to COVID19 and test sent to confirm diagnosis 2. Hypertension ~ blood pressure controlled, home medications continued with dose adjustment as needed 3. History of mild intermittent asthma ?Patient started on aerosol treatments 4. 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 Diabetes mellitus type II ~ Placed on Accu-Cheks a.c. and at bedtime and covered with sliding scale insulin 7. DVT prophylaxis ?Enoxaparin Inpatient E&M: 34494 [facility] Hosp L3
[2019-12-06 12:25] LABS: Bedside Glucose 167 mg/dL (70-110)
[2019-12-06] MEDS: Glucerna Shake 120 ML LIQUID PO ×3 (13:57→22:28)
[2019-12-06] MEDS: hydrALAZINE 20 MG/ML Vial 10 MG IV (14:03)
--- NOTE | 2019-12-06 14:33 | CASEMGMT ---
This RN CM has attempted multiple times to reach pt via phone d/t resp isolation pt without success. Yulissa LENZ aware and states will check on phone while in room. Sangeeta LENZ CM
--- NOTE | 2019-12-06 15:07 | CASEMGMT ---
YOANNA ALMANZAR assessment: Phone interview with pt d/t resp isolation for initial transition planning/care coordination assessment. YOANNA ALMANZAR introduced self and role at [facility], pt voices understanding and consents to assessment at this time. Pt is A/Ox4 at this time and answers questions appropriately at this time. Care providers, pharmacy, and demographics verified at this time. Presentation: Sent by PCP for resp testing, pt states concerns for Covid 19. Pt states hx of asthma, fever, cough for last 2 weeks. Admitting dx: Bilat infiltrates PCP: Yon Anton Specialists: Krystle, neuro; Uche onc; Leigh onc; Enrique onc-pt states finished CA treatment in April 2019. [facility]acy[facility] Insurance: [employer] Prescription Benefit: [employer] Living Will/HPOA: Pt states does not have LW/HPOA and declines info at this time. LNOK: Homero Sauceda, ; Ramya Elmore, mother Living Arrangements: Pt states lives with in 2 story home and states no concerns at home at this time. Pt states is independent with ADL's. Transportation: Pt states usually drives self but states has not driven 'in awhile' due to depression and meds 'not making me feel right.' Pt states no transportation concerns at this time. DME/HHC: Pt states no current DME or need for any at this time. Pt states no hx of HHC or SNF in the past. Pt states no concerns with going home at time of discharge. Pt states is disabled. Pt states does not smoke or drink ETOH. Pt states no further concerns/needs at this time. CM to follow for any further discharge planning/needs. Advised pt to ask for CM if any further questions/concerns/needs arise, voices understanding. Pt Goal: Home Plan[place] YOANNA ALMANZAR
[2019-12-06 17:56] LABS: Bedside Glucose 158 mg/dL (70-110)
[2019-12-06] MEDS: Labetalol 200 MG Tablet PO (20:27)
[2019-12-06] MEDS: Fluticasone 0.05% 1 SPRAY NASAL.SRY 2 SPRAY NASAL (20:28)
[2019-12-06] MEDS: MELATONIN 3 MG TABLET PO (22:28)
[2019-12-06 22:40] LABS: Bedside Glucose 148 mg/dL (70-110)
[2019-12-07] VITALS (14 sets, daily range): BP systolic 146–186; BP diastolic 70–87; PULSE 76–108; RESP 14–21; TEMP 36.6–38.7; O2SAT 94–96
[2019-12-07] MEDS: Insulin Lispro 100 UNIT/ML INSULN.PEN SC ×3 (06:08→18:35)
[2019-12-07] MEDS: Enoxaparin 40 MG/0.4 ML Syringe SC (06:08)
[2019-12-07] MEDS: guaiFENesin 10 ML UDC (200MG/10ML) 20 ML PO ×3 (06:08→22:35)
[2019-12-07] MEDS: Acetaminophen 325 MG Tablet 650 MG PO ×2 (06:08→15:03)
[2019-12-07 06:21] LABS: Bedside Glucose 169 mg/dL (70-110)
[2019-12-07] MEDS: Albuterol 2.5 MG/3 ML VIAL.NEB. INHALATION ×3 (07:21→19:11)
[2019-12-07] MEDS: Budesonide Respules 0.5 MG/2 ML AMPUL.NEB. INHALATION ×2 (07:21→19:11)
--- NOTE | 2019-12-07 07:55 | PCM.PN.HOSP ---
Patient Problems: Active and Suspected Problems Suspected 2018 novel coronavirus infection (Acute) Pneumonia (Acute) Reason for Visit: Acute viral syndrome Subjective: Patient is a 64-year-old lady who presented with dry cough shortness of breath fever as well as arthralgia and loose stools admitted to a monitored bed for subsequent management Patient complains of persistent cough and bilateral chest wall pain added tramadol as needed for pain control Objective: GENERAL: cooperative HEENT: Atraumatic; EYES; Anicteric, Normal Conjunctiva NECK; supple, normal thyroid, RESPIRATORY: Diminished to auscultation CARDIOVASCULAR: Regular S1 S2, GI: soft, normoactive bowel sounds, : No Renal angle tenderness; EXTREMITIES: No edema, no clubbing, MUSCULOSKELETAL: no muscle waisting NEURO: Awake; no lateralizing signs. SKIN: No Rash PSYCH; Flat affect Vitals/I&O's: Vital Signs Temp Pulse Resp BP Pulse Ox 101.6 F H 97 20 H 147/75 H 95 12/07/19 04:30 12/07/19 06:55 12/07/19 04:30 12/07/19 04:30 12/07/19 04:30 Oxygen Delivery Method Room Air Weight: 68.2 kg Body Mass Index (BMI) 25.8 Finger Stick Blood Glucose 186 Intake and Output for Last 24 Hours 12/05/19 12/06/19 12/07/19 23:59 23:59 23:59 Intake Total 1432.50 / 1432.50 2943.75 / 2943.75 100 / 100 Balance 1432.50 / 1432.50 2943.75 / 2943.75 100 / 100 Microbiology Past 72 Hours 12/05/19 18:45 Mucosa - Nose Respiratory Panel (PCR) - Final 12/05/19 21:45 Urine, Clean Catch Streptococcus pneumoniae Antigen (M - Final 12/05/19 21:45 Urine, Clean Catch Legionella Antigen - Final 12/05/19 16:10 Mucosa - Nose Rapid RSV (DFA) - Final 12/05/19 16:10 Mucosa - Nose Influenza Types A,B Direct FA (RON) - Final Laboratory Results 12/06/19 11:57: POC Glucose 167 H 12/06/19 17:34: POC Glucose 158 H 12/06/19 22:26: POC Glucose 148 H 12/06/19 : Miscellaneous Test Pending 12/07/19 06:06: POC Glucose 169 H Current Medications Acetaminophen (Tylenol) 650 mg PO Q6H PRN PRN PRN Reason: Pain Score 1-10/Temp > 100.7 F Last Admin: 12/07/19 06:08 Dose: 650 mg Documented by: Al Hydroxide/Mg Hydroxide (Mylanta Ii) 30 ml PO Q6H PRN PRN PRN Reason: Gastric Burning Albuterol Sulfate (Ventolin Aerosols) 2.5 mg INHALATION Q2H PRN PRN PRN Reason: Shortness of Breath/Wheezing Albuterol Sulfate (Ventolin Aerosols) 2.5 mg INHALATION Q6HWA.RT [facility] Last Admin: 12/07/19 07:21 Dose: 2.5 mg Documented by: Budesonide (Pulmicort Aerosol) 0.5 mg INHALATION Q12H.RT [facility] Last Admin: 12/07/19 07:21 Dose: 0.5 mg Documented by: Bupropion HCl (Wellbutrin Sr (100mg Tablets)) 100 mg PO BID [facility] Last Admin: 12/06/19 20:28 Dose: 100 mg Documented by: Clonazepam (Klonopin) 2 mg PO QHS [facility] Last Admin: 12/06/19 22:28 Dose: Not Given Documented by: Dextrose (D50w Syringe) 0 gm IV X1 PRN; Protocol PRN Reason: Hypoglycemia Enoxaparin Sodium (Lovenox) 40 mg SC DAILY@0600 [facility] Last Admin: 12/07/19 06:08 Dose: 40 mg Documented by: Famotidine (Pepcid) 20 mg PO BID [facility] Last Admin: 12/06/19 20:28 Dose: 20 mg Documented by: Fluticasone Propionate (Flonase Nasal [place]) 2 spray NASAL QHS [facility] Last Admin: 12/06/19 20:28 Dose: 2 spray Documented by: Folic Acid (Folic Acid) 0.5 mg PO DAILY@0800 [facility] Last Admin: 12/06/19 08:29 Dose: 0.5 mg Documented by: Glucagon () 1 mg IM .X1 PRN PRN Reason: Hypoglycemia Guaifenesin (Robitussin) 20 ml PO Q4H PRN PRN PRN Reason: COUGH Last Admin: 12/07/19 06:08 Dose: 20 ml Documented by: Hydralazine HCl (Apresoline Iv) 10 mg IV Q4H PRN PRN PRN Reason: SBP > 160 Last Admin: 12/06/19 14:03 Dose: 10 mg Documented by: Sodium Chloride () 250 mls @ 15 mls/hr IV .[id number] PRN PRN Reason: Saline Flush Sodium Chloride () 250 mls @ 15 mls/hr IV .[id number] PRN PRN Reason: Additional IVPB Infusion Ceftriaxone Sodium 2 gm/ (Sodium Chloride) 50 mls @ 100 mls/hr IV Q24 [facility] Last Infusion: 12/06/19 14:30 Dose: Infused Documented by: Insulin Human Lispro (Humalog Kwikpen (Bkc)) 0 unit SC ACHS [facility]; Protocol Last Admin: 12/07/19 06:08 Dose: 1 u Documented by: Labetalol HCl (Trandate) 200 mg PO BID [facility] Last Admin: 12/06/19 20:27 Dose: 200 mg Documented by: Losartan Potassium (Cozaar) 50 mg PO DAILY [facility] Last Admin: 12/06/19 08:29 Dose: 50 mg Documented by: Melatonin (Melatonin) 3 mg PO QHS PRN PRN PRN Reason: INSOMNIA Last Admin: 12/06/19 22:28 Dose: 3 mg Documented by: Montelukast Sodium (Singulair) 10 mg PO DAILY PRN PRN Reason: ALLERGIES Nitroglycerin (Nitrostat) 0.4 mg SUBLINGUAL Q5M PRN PRN Reason: CARDIAC/CHEST PAIN Nutritional Formula (Lactose Free) (Glucerna Shake) 120 ml PO 4X/DAY [facility] Last Admin: 12/06/19 22:28 Dose: 120 ml Documented by: Ondansetron HCl (Zofran) 4 mg IV Q8H PRN PRN PRN Reason: NAUSEA/VOMITING Prochlorperazine Edisylate (Compazine Iv) 5 mg IV Q4H PRN PRN PRN Reason: Breakthrough nausea/vomiting Sodium Chloride () 10 - 40 ml IV UD PRN PRN Reason: SALINE FLUSH Last Admin: 12/06/19 06:02 Dose: 20 ml Documented by: Throat Lozenges (Cepacol Sore Throat Lozenge) 1 lozenge MUCOUS MEM Q2H PRN PRN PRN Reason: SORE THROAT Last Admin: 03/24/20 22:28 Dose: 1 lozenge Documented by: STROKE Vital Signs/Narrative: Vital Signs Temp Pulse Resp BP Pulse Ox 12/07/19 06:55 97 12/07/19 04:30 101.6 F H 101 H 20 H 147/75 H 95 Medical Necessity - Tobacco Use Smoking Status: Never smoker Assessment/Plan All Active Problems Suspected 2018 novel coronavirus infection (Acute) Pneumonia (Acute) Patient is a 64-year-old lady who presented with dry cough shortness of breath fever as well as arthralgia and loose stools admitted to a monitored bed for subsequent management 1. Acute viral syndrome ?Suspected to be secondary to COVID19 infection. Imaging studies obtained on admission demonstrated patchy hazy infiltrates in a predominantly peripheral distribution involving the left and right lower lobes, left lingula, and bilateral upper lobes. Patient admitted to monitored bed for symptomatic management with consultation placed to COVID19 and test sent to confirm diagnosis -12/07/2019 patient complains of persistent cough and bilateral chest wall pain added tramadol as needed for pain control 2. Hypertension ~ blood pressure controlled, home medications continued with dose adjustment as needed 3. History of mild intermittent asthma ?Patient started on aerosol treatments 4. 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 Diabetes mellitus type II ~ Placed on Accu-Cheks a.c. and at bedtime and covered with sliding scale insulin 7. DVT prophylaxis ?Enoxaparin Inpatient E&M: 28260 [facility] Hosp L2
[2019-12-07] MEDS: BENZOCAINE/MENTHOL 1 LOZENGE MUCOUS MEM (08:25)
[2019-12-07] MEDS: buPROPion (SR) 100 MG TABLET.SA PO ×2 (10:54→21:04)
[2019-12-07] MEDS: Folic Acid 1 MG Tablet 0.5 MG PO (10:54)
[2019-12-07] MEDS: Famotidine 20 MG Tablet PO ×2 (10:54→21:04)
[2019-12-07] MEDS: Losartan Potassium 50 MG Tablet PO (10:55)
[2019-12-07] MEDS: Labetalol 200 MG Tablet PO ×2 (10:55→21:04)
[2019-12-07] MEDS: traMADol 50 MG Tablet PO ×2 (10:56→18:43)
[2019-12-07] MEDS: Glucerna Shake 120 ML LIQUID PO ×3 (10:58→18:34)
[2019-12-07] MEDS: 0.9% Saline Lock 10 ML Syringe IV ×2 (10:58→22:36)
[2019-12-07 12:01] LABS: Bedside Glucose 196 mg/dL (70-110)
--- NOTE | 2019-12-07 16:40 | PCM.PN.ID ---
Patient Problems: Active and Suspected Problems Suspected 2018 novel coronavirus infection (Acute) Pneumonia (Acute) Subjective: Still with fever, dry cough, aches. Slowly improving. - Physical Exam Vitals/I&O's: Vital Signs Temp Pulse Resp BP Pulse Ox 97.8 F 87 14 146/70 H 96 12/07/19 10:51 12/07/19 13:00 12/07/19 13:00 12/07/19 10:51 12/07/19 13:00 Oxygen Delivery Method Room Air Weight: 68.2 kg Body Mass Index (BMI) 25.8 Finger Stick Blood Glucose 186 Intake and Output for Last 24 Hours 12/05/19 12/06/19 12/07/19 23:59 23:59 23:59 Intake Total 1432.50 / 1432.50 2943.75 / 2943.75 850 / 850 Balance 1432.50 / 1432.50 2943.75 / 2943.75 850 / 850 General: Alert, Cooperative, No apparent distress Lungs: Clear to auscultation, Normal air movement Cardiovascular: Regular rate, Regular Rhythm Abdomen: Soft, Non Tender, Non-Distended Skin: No rashes Microbiology Past 72 Hours 12/05/19 18:45 Mucosa - Nose Respiratory Panel (PCR) - Final 12/05/19 21:45 Urine, Clean Catch Streptococcus pneumoniae Antigen (M - Final 12/05/19 21:45 Urine, Clean Catch Legionella Antigen - Final 12/05/19 16:10 Mucosa - Nose Rapid RSV (DFA) - Final 12/05/19 16:10 Mucosa - Nose Influenza Types A,B Direct FA (RON) - Final Laboratory Results 12/06/19 17:34: POC Glucose 158 H 12/06/19 22:26: POC Glucose 148 H 12/07/19 06:06: POC Glucose 169 H 12/07/19 11:43: POC Glucose 196 H Current Medications Acetaminophen (Tylenol) 650 mg PO Q6H PRN PRN PRN Reason: Pain Score 1-10/Temp > 100.7 F Last Admin: 12/07/19 15:03 Dose: 650 mg Documented by: Al Hydroxide/Mg Hydroxide (Mylanta Ii) 30 ml PO Q6H PRN PRN PRN Reason: Gastric Burning Albuterol Sulfate (Ventolin Aerosols) 2.5 mg INHALATION Q2H PRN PRN PRN Reason: Shortness of Breath/Wheezing Albuterol Sulfate (Ventolin Aerosols) 2.5 mg INHALATION Q6HWA.RT [facility] Last Admin: 12/07/19 13:00 Dose: 2.5 mg Documented by: Budesonide (Pulmicort Aerosol) 0.5 mg INHALATION Q12H.RT [facility] Last Admin: 12/07/19 07:21 Dose: 0.5 mg Documented by: Bupropion HCl (Wellbutrin Sr (100mg Tablets)) 100 mg PO BID [facility] Last Admin: 12/07/19 10:54 Dose: 100 mg Documented by: Clonazepam (Klonopin) 2 mg PO QHS [facility] Last Admin: 12/06/19 22:28 Dose: Not Given Documented by: Dextrose (D50w Syringe) 0 gm IV X1 PRN; Protocol PRN Reason: Hypoglycemia Enoxaparin Sodium (Lovenox) 40 mg SC DAILY@0600 [facility] Last Admin: 12/07/19 06:08 Dose: 40 mg Documented by: Famotidine (Pepcid) 20 mg PO BID [facility] Last Admin: 12/07/19 10:54 Dose: 20 mg Documented by: Fluticasone Propionate (Flonase Nasal [place]) 2 spray NASAL QHS [facility] Last Admin: 12/06/19 20:28 Dose: 2 spray Documented by: Folic Acid (Folic Acid) 0.5 mg PO DAILY@0800 [facility] Last Admin: 12/07/19 10:54 Dose: 0.5 mg Documented by: Glucagon () 1 mg IM .X1 PRN PRN Reason: Hypoglycemia Guaifenesin (Robitussin) 20 ml PO Q4H PRN PRN PRN Reason: COUGH Last Admin: 12/07/19 15:03 Dose: 10 ml Documented by: Hydralazine HCl (Apresoline Iv) 10 mg IV Q4H PRN PRN PRN Reason: SBP > 160 Last Admin: 12/06/19 14:03 Dose: 10 mg Documented by: Sodium Chloride () 250 mls @ 15 mls/hr IV .[id number] PRN PRN Reason: Saline Flush Sodium Chloride () 250 mls @ 15 mls/hr IV .[id number] PRN PRN Reason: Additional IVPB Infusion Ceftriaxone Sodium 2 gm/ (Sodium Chloride) 50 mls @ 100 mls/hr IV Q24 [facility] Last Infusion: 12/07/19 11:52 Dose: Infused Documented by: Insulin Human Lispro (Humalog Kwikpen (Bkc)) 0 unit SC ACHS [facility]; Protocol Last Admin: 12/07/19 11:46 Dose: 2 u Documented by: Labetalol HCl (Trandate) 200 mg PO BID [facility] Last Admin: 12/07/19 10:55 Dose: 200 mg Documented by: Losartan Potassium (Cozaar) 50 mg PO DAILY [facility] Last Admin: 12/07/19 10:55 Dose: 50 mg Documented by: Melatonin (Melatonin) 3 mg PO QHS PRN PRN PRN Reason: INSOMNIA Last Admin: 12/06/19 22:28 Dose: 3 mg Documented by: Montelukast Sodium (Singulair) 10 mg PO DAILY PRN PRN Reason: ALLERGIES Nitroglycerin (Nitrostat) 0.4 mg SUBLINGUAL Q5M PRN PRN Reason: CARDIAC/CHEST PAIN Nutritional Formula (Lactose Free) (Glucerna Shake) 120 ml PO 4X/DAY [facility] Last Admin: 12/07/19 14:56 Dose: 120 ml Documented by: Ondansetron HCl (Zofran) 4 mg IV Q8H PRN PRN PRN Reason: NAUSEA/VOMITING Prochlorperazine Edisylate (Compazine Iv) 5 mg IV Q4H PRN PRN PRN Reason: Breakthrough nausea/vomiting Sodium Chloride () 10 - 40 ml IV UD PRN PRN Reason: SALINE FLUSH Last Admin: 12/07/19 10:58 Dose: 20 ml Documented by: Throat Lozenges (Cepacol Sore Throat Lozenge) 1 lozenge MUCOUS MEM Q2H PRN PRN PRN Reason: SORE THROAT Last Admin: 12/07/19 08:25 Dose: 1 lozenge Documented by: Tramadol HCl (Ultram) 50 mg PO Q6H PRN PRN PRN Reason: Pain Score 6-10/10 Last Admin: 12/07/19 10:56 Dose: 50 mg Documented by: Medical Necessity - Tobacco Use Smoking Status: Never smoker Route of nutrition/ use of supplements: [] Nutritional Intake: [] IV Site: [] [place] Catheter: [] - Assessment/Plan Antibiotics: [] Assessment/Plan: [] Active and Suspected Problems Suspected 2019 novel coronavirus infection (Acute) Pneumonia (Acute) fever, suspected COVID19 - COVID pending. MRSA screen neg. CT showed bilat infiltrate. Narrowed abx to ceftriaxone. Slow improvement, off O2. May be able to go home tomorrow with quarantine. Will follow
[2019-12-07 18:51] LABS: Bedside Glucose 198 mg/dL (70-110)
[2019-12-07] MEDS: Fluticasone 0.05% 1 SPRAY NASAL.SRY 2 SPRAY NASAL (21:04)
[2019-12-07 21:15] LABS: Bedside Glucose 134 mg/dL (70-110)
[2019-12-07] MEDS: hydrALAZINE 20 MG/ML Vial 10 MG IV (22:35)
[2019-12-07] MEDS: MELATONIN 3 MG TABLET PO (22:36)
[2019-12-08 01:07] VITALS: BP 156/72; PULSE 102; RESP 16; TEMP 38.4; O2SAT 94
[2019-12-08] MEDS: Acetaminophen 325 MG Tablet 650 MG PO (01:10)
[2019-12-08 02:51] VITALS: PULSE 85
[2019-12-08 06:21] VITALS: BP 154/72; PULSE 94; RESP 18; TEMP 37.3; O2SAT 94
[2019-12-08] MEDS: Enoxaparin 40 MG/0.4 ML Syringe SC (06:29)
[2019-12-08] MEDS: Insulin Lispro 100 UNIT/ML INSULN.PEN SC ×2 (06:29→11:29)
[2019-12-08 06:40] LABS: Bedside Glucose 182 mg/dL (70-110)
[2019-12-08 07:00] VITALS: PULSE 80
[2019-12-08 07:55] VITALS: PULSE 77; RESP 18; O2SAT 95
[2019-12-08] MEDS: Budesonide Respules 0.5 MG/2 ML AMPUL.NEB. INHALATION (07:55)
[2019-12-08] MEDS: Albuterol 2.5 MG/3 ML VIAL.NEB. INHALATION (07:55)
--- NOTE | 2019-12-08 08:08 | PCM.PN.HOSP ---
Patient Problems: Active and Suspected Problems Suspected 2018 novel coronavirus infection (Acute) Pneumonia (Acute) Objective: GENERAL: cooperative HEENT: Atraumatic; EYES; Anicteric, Normal Conjunctiva NECK; supple, normal thyroid, RESPIRATORY: Diminished to auscultation CARDIOVASCULAR: Regular S1 S2, GI: soft, normoactive bowel sounds, : No Renal angle tenderness; EXTREMITIES: No edema, no clubbing, MUSCULOSKELETAL: no muscle waisting NEURO: Awake; no lateralizing signs. SKIN: No Rash PSYCH; Flat affect Vitals/I&O's: Vital Signs Temp Pulse Resp BP Pulse Ox 99.2 F H 80 18 154/72 H 94 12/08/19 06:21 12/08/19 07:00 12/08/19 06:21 12/08/19 06:21 12/08/19 06:21 Oxygen Delivery Method Room Air Weight: 68.2 kg Body Mass Index (BMI) 25.8 Finger Stick Blood Glucose 186 Intake and Output for Last 24 Hours 12/06/19 12/07/19 12/08/19 23:59 23:59 23:59 Intake Total 2943.75 / 2943.75 1800 / 1800 100 / 100 Balance 2943.75 / 2943.75 1800 / 1800 100 / 100 Microbiology Past 72 Hours 12/05/19 17:50 Blood Culture (Wb) - Anticubital Right Blood Culture - Preliminary No growth in 48 hours. 12/05/19 17:50 Blood Culture (Wb) - Anticubital Right Blood Culture - Preliminary No growth in 48 hours. 12/05/19 18:45 Mucosa - Nose Respiratory Panel (PCR) - Final 12/05/19 21:45 Urine, Clean Catch Streptococcus pneumoniae Antigen (M - Final 12/05/19 21:45 Urine, Clean Catch Legionella Antigen - Final 12/05/19 16:10 Mucosa - Nose Rapid RSV (DFA) - Final 12/05/19 16:10 Mucosa - Nose Influenza Types A,B Direct FA (RON) - Final Laboratory Results 12/07/19 11:43: POC Glucose 196 H 12/07/19 18:19: POC Glucose 198 H 12/07/19 21:00: POC Glucose 134 H 12/08/19 06:28: POC Glucose 182 H Current Medications Acetaminophen (Tylenol) 650 mg PO Q6H PRN PRN PRN Reason: Pain Score 1-10/Temp > 100.7 F Last Admin: 12/08/19 01:10 Dose: 650 mg Documented by: Al Hydroxide/Mg Hydroxide (Mylanta Ii) 30 ml PO Q6H PRN PRN PRN Reason: Gastric Burning Albuterol Sulfate (Ventolin Aerosols) 2.5 mg INHALATION Q2H PRN PRN PRN Reason: Shortness of Breath/Wheezing Albuterol Sulfate (Ventolin Aerosols) 2.5 mg INHALATION Q6HWA.RT [facility] Last Admin: 12/08/19 07:55 Dose: 2.5 mg Documented by: Budesonide (Pulmicort Aerosol) 0.5 mg INHALATION Q12H.RT [facility] Last Admin: 12/08/19 07:55 Dose: 0.5 mg Documented by: Bupropion HCl (Wellbutrin Sr (100mg Tablets)) 100 mg PO BID [facility] Last Admin: 12/07/19 21:04 Dose: 100 mg Documented by: Clonazepam (Klonopin) 2 mg PO QHS [facility] Last Admin: 12/07/19 21:04 Dose: Not Given Documented by: Dextrose (D50w Syringe) 0 gm IV X1 PRN; Protocol PRN Reason: Hypoglycemia Enoxaparin Sodium (Lovenox) 40 mg SC DAILY@0600 [facility] Last Admin: 12/08/19 06:29 Dose: 40 mg Documented by: Famotidine (Pepcid) 20 mg PO BID [facility] Last Admin: 12/07/19 21:04 Dose: 20 mg Documented by: Fluticasone Propionate (Flonase Nasal [place]) 2 spray NASAL QHS [facility] Last Admin: 12/07/19 21:04 Dose: 2 spray Documented by: Folic Acid (Folic Acid) 0.5 mg PO DAILY@0800 [facility] Last Admin: 12/07/19 10:54 Dose: 0.5 mg Documented by: Glucagon () 1 mg IM .X1 PRN PRN Reason: Hypoglycemia Guaifenesin (Robitussin) 20 ml PO Q4H PRN PRN PRN Reason: COUGH Last Admin: 12/07/19 22:35 Dose: 20 ml Documented by: Hydralazine HCl (Apresoline Iv) 10 mg IV Q4H PRN PRN PRN Reason: SBP > 160 Last Admin: 12/07/19 22:35 Dose: 10 mg Documented by: Sodium Chloride () 250 mls @ 15 mls/hr IV .[id number] PRN PRN Reason: Saline Flush Sodium Chloride () 250 mls @ 15 mls/hr IV .[id number] PRN PRN Reason: Additional IVPB Infusion Ceftriaxone Sodium 2 gm/ (Sodium Chloride) 50 mls @ 100 mls/hr IV Q24 [facility] Last Infusion: 12/07/19 11:52 Dose: Infused Documented by: Insulin Human Lispro (Humalog Kwikpen (Bkc)) 0 unit SC ACHS [facility]; Protocol Last Admin: 12/08/19 06:29 Dose: 1 u Documented by: Labetalol HCl (Trandate) 200 mg PO BID [facility] Last Admin: 12/07/19 21:04 Dose: 200 mg Documented by: Losartan Potassium (Cozaar) 50 mg PO DAILY [facility] Last Admin: 12/07/19 10:55 Dose: 50 mg Documented by: Melatonin (Melatonin) 3 mg PO QHS PRN PRN PRN Reason: INSOMNIA Last Admin: 12/07/19 22:36 Dose: 3 mg Documented by: Montelukast Sodium (Singulair) 10 mg PO DAILY PRN PRN Reason: ALLERGIES Nitroglycerin (Nitrostat) 0.4 mg SUBLINGUAL Q5M PRN PRN Reason: CARDIAC/CHEST PAIN Nutritional Formula (Lactose Free) (Glucerna Shake) 120 ml PO 4X/DAY [facility] Last Admin: 12/07/19 21:04 Dose: Not Given Documented by: Ondansetron HCl (Zofran) 4 mg IV Q8H PRN PRN PRN Reason: NAUSEA/VOMITING Prochlorperazine Edisylate (Compazine Iv) 5 mg IV Q4H PRN PRN PRN Reason: Breakthrough nausea/vomiting Sodium Chloride () 10 - 40 ml IV UD PRN PRN Reason: SALINE FLUSH Last Admin: 12/07/19 22:36 Dose: 10 ml Documented by: Throat Lozenges (Cepacol Sore Throat Lozenge) 1 lozenge MUCOUS MEM Q2H PRN PRN PRN Reason: SORE THROAT Last Admin: 12/07/19 08:25 Dose: 1 lozenge Documented by: Tramadol HCl (Ultram) 50 mg PO Q6H PRN PRN PRN Reason: Pain Score 6-10/10 Last Admin: 12/07/19 18:43 Dose: 50 mg Documented by: STROKE Vital Signs/Narrative: Vital Signs Temp Pulse Resp BP Pulse Ox 12/08/19 07:00 80 12/08/19 06:21 99.2 F H 94 18 154/72 H 94 Medical Necessity - Tobacco Use Smoking Status: Never smoker Assessment/Plan All Active Problems Suspected 2018 novel coronavirus infection (Acute) Pneumonia (Acute) Patient is a 64-year-old lady who presented with dry cough shortness of breath fever as well as arthralgia and loose stools admitted to a monitored bed for subsequent management 1. Acute viral syndrome ?Suspected to be secondary to COVID19 infection. Imaging studies obtained on admission demonstrated patchy hazy infiltrates in a predominantly peripheral distribution involving the left and right lower lobes, left lingula, and bilateral upper lobes. Patient admitted to monitored bed for symptomatic management with consultation placed to COVID19 and test sent to confirm diagnosis -12/07/2019 patient complains of persistent cough and bilateral chest wall pain added tramadol as needed for pain control 2. Hypertension ~ blood pressure controlled, home medications continued with dose adjustment as needed 3. History of mild intermittent asthma ?Patient started on aerosol treatments 4. 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 Diabetes mellitus type II ~ Placed on Accu-Cheks a.c. and at bedtime and covered with sliding scale insulin 7. DVT prophylaxis ?Enoxaparin Inpatient E&M: 34306 [facility] Hosp L2
[2019-12-08 08:55] VITALS: BP 140/76; PULSE 102; RESP 18; TEMP 37.1; O2SAT 98
[2019-12-08] MEDS: Losartan Potassium 50 MG Tablet PO (08:56)
[2019-12-08] MEDS: Labetalol 200 MG Tablet PO (08:56)
[2019-12-08] MEDS: Folic Acid 1 MG Tablet 0.5 MG PO (08:56)
[2019-12-08] MEDS: 0.9% Saline Lock 10 ML Syringe IV (08:56)
[2019-12-08] MEDS: Famotidine 20 MG Tablet PO (08:56)
[2019-12-08] MEDS: buPROPion (SR) 100 MG TABLET.SA PO (08:56)
--- NOTE | 2019-12-08 11:24 | DCINST_ITS ---
- Discharge Diagnoses Current Active Problems: Current Active and Chronic Problems Suspected 2019 novel coronavirus infection (Acute) Pneumonia (Acute) You will use the following diet at home:: Calorie/Carbohydrate Controlled (specify 1200, 1400, etc) - 1800 Your food should be the consistency of: Regular Discharge Activity: Return to Normal Activity Additional Instructions: Patient to follow-up with [facility] regarding the results. Patient instructed to self current time for 2 weeks pending results of her COVID 19 test Pending Tests on Discharge: COVID 19 test Allergies/Adverse Reactions: Allergies hydrochlorothiazide [From Zestoretic] Allergy (Verified 12/05/19 15:47) Rash lisinopril [From Zestoretic] Allergy (Verified 12/05/19 15:47) Rash morphine Allergy (Verified 12/05/19 15:47) Rash STERIODS Allergy (Uncoded 12/05/19 15:47) Rash Medications to take at Discharge Calcium Carbonate/Vitamin D3 [Caltrate 600 + D Soft Chew Tab] 2 ea PO DAILY 11/08/19 Clonazepam [Klonopin] 2 mg PO QHS 11/08/19 Cyanocobalamin (Vitamin B-12) [Vitamin B12] 1,000 mcg PO DAILY 11/08/19 Fluticasone Propion/Salmeterol [Fluticasone-Salmeterol 250-50] 2 puff IH BID PRN 11/08/19 Folic Acid 0.4 mg PO DAILY@0800 11/08/19 Glimepiride [Amaryl] 4 mg PO BID 11/08/19 Losartan Potassium [Cozaar] 50 mg PO DAILY 11/08/19 Montelukast [Singulair] 10 mg PO DAILY PRN 11/08/19 Sitagliptin Phosphate [Januvia] 75 mg PO DAILY 11/08/19 Triamcinolone Acetonide [Nasacort] 2 spray NS QHS 11/08/19 buPROPion SR [Wellbutrin Sr] 100 mg PO BID 11/08/19 Labetalol [Trandate (Beta Rayna)] 200 mg PO BID 12/06/19 Primary Care Physician: Yon Anton MD [Primary Care Provider] - Test Results: Test results from this visit will be discussed in further detail at your follow- up appointment, if applicable. Please Follow Up With: Yon Anton MD When: Patient to call for appointment when out of current time Proposed Discharge Date: 12/08/19
--- NOTE | 2019-12-08 11:28 | DS.PCM_ITS ---
Discharge Date and Diagnosis - Problem List Patient Problems: Active and Suspected Problems Suspected 2018 novel coronavirus infection (Acute) Pneumonia (Acute) Date of Admission: 12/05/19 Date of Discharge: 12/08/19 - Primary Discharge Diagnosis Active and Suspected Problems Suspected 2018 novel coronavirus infection (Acute) Pneumonia (Acute) - Secondary Discharge Diagnosis Chronic Problems Breast cancer (Chronic) Mitral valve prolapse (Chronic) HTN (hypertension) (Chronic) Hyperlipemia (Chronic) GERD (gastroesophageal reflux disease) (Chronic) Hospital Course and Treatment Imaging Results: Clinical Impression(s) from Imaging Studies Chest X-Ray 12/05/19 16:00 IMPRESSION: There is a very subtle parenchymal opacity seen in association with the right lower lobe laterally. On the this exam it projects between the anterior lateral fifth and sixth ribs. This may represent minimal atelectasis, cannot exclude a developing infiltrate. Electronically Signed: Keira Hall MD at 16:43 EDT , Service support , Chest CTA 12/05/19 16:34 IMPRESSION: Normal CTA chest examination, without a demonstrated pulmonary embolism or arterial dissection. There are patchy hazy infiltrates in a predominantly peripheral distribution involving the left and right lower lobes, left lingula, and bilateral upper lobes. Electronically Signed: Mello Alford MD at 17:19 EDT , Service support , Chest X-Ray 12/06/19 05:55 IMPRESSION: Worsening of aeration in the left lung. Findings may represent covid 19 inflammation Electronically Signed: Therese Valencia MD at 4:09 EDT , Service support , Summary of Care Provided: Patient is a 64-year-old lady who presented with dry cough shortness of breath fever as well as arthralgia and loose stools admitted to a monitored bed for subsequent management 1. Acute viral syndrome ?Suspected to be secondary to COVID19 infection. Imaging studies obtained on admission demonstrated patchy hazy infiltrates in a predominantly peripheral distribution involving the left and right lower lobes, left lingula, and bilateral upper lobes. Patient admitted to monitored bed for symptomatic management with consultation placed to COVID and test sent to confirm diagnosis -12/07/2019 patient complains of persistent cough and bilateral chest wall pain added tramadol as needed for pain control ?Patient condition has significantly improved. Her coughing test was still pending. Patient was however discharged home instructed to going to self current time for 2 weeks. Patient to contact the [facility] department for results. Patient was also instructed to contact her PCP following her current time episode for subsequent follow-up. Patient was also instructed to present back to the emergency department if her breathing worsened or she had persistent cough and persistent fever. 2. Hypertension ~ blood pressure controlled, home medications continued with dose adjustment as needed 3. History of mild intermittent asthma ?Patient started on aerosol treatments 4. 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 Diabetes mellitus type II ~ Placed on Accu-Cheks a.c. and at bedtime and covered with sliding scale insulin 7. DVT prophylaxis ?Enoxaparin Patient Problems: Active and Suspected Problems Suspected 2018 novel coronavirus infection (Acute) Pneumonia (Acute) - Physical Exam Vitals/I&O's: Vital Signs Temp Pulse Resp BP Pulse Ox 98.7 F 102 H 18 140/76 H 98 12/08/19 08:55 12/08/19 08:55 12/08/19 08:55 12/08/19 08:55 12/08/19 08:55 Oxygen Delivery Method Room Air Weight: 68.2 kg Body Mass Index (BMI) 25.8 Finger Stick Blood Glucose 186 Intake and Output for Last 24 Hours 12/06/19 12/07/19 12/08/19 23:59 23:59 23:59 Intake Total 2943.75 / 2943.75 1800 / 1800 150 / 150 Balance 2943.75 / 2943.75 1800 / 1800 150 / 150 General: Alert HEENT: Atraumatic Lungs: Diminished Cardiovascular: Regular rate, Regular Rhythm Psych/Mental Status: Normal Affect Microbiology Past 72 Hours 12/05/19 17:50 Blood Culture (Wb) - Anticubital Right Blood Culture - Preliminary No growth in 48 hours. 12/05/19 17:50 Blood Culture (Wb) - Anticubital Right Blood Culture - Preliminary No growth in 48 hours. 12/05/19 18:45 Mucosa - Nose Respiratory Panel (PCR) - Final 12/05/19 21:45 Urine, Clean Catch Streptococcus pneumoniae Antigen (M - Final 12/05/19 21:45 Urine, Clean Catch Legionella Antigen - Final 12/05/19 16:10 Mucosa - Nose Rapid RSV (DFA) - Final 12/05/19 16:10 Mucosa - Nose Influenza Types A,B Direct FA (RON) - Final Laboratory Results 12/07/19 11:43: POC Glucose 196 H 12/07/19 18:19: POC Glucose 198 H 12/07/19 21:00: POC Glucose 134 H 12/08/19 06:28: POC Glucose 182 H Current Medications Acetaminophen (Tylenol) 650 mg PO Q6H PRN PRN PRN Reason: Pain Score 1-10/Temp > 100.7 F Last Admin: 12/08/19 01:10 Dose: 650 mg Documented by: Al Hydroxide/Mg Hydroxide (Mylanta Ii) 30 ml PO Q6H PRN PRN PRN Reason: Gastric Burning Albuterol Sulfate (Ventolin Aerosols) 2.5 mg INHALATION Q2H PRN PRN PRN Reason: Shortness of Breath/Wheezing Albuterol Sulfate (Ventolin Aerosols) 2.5 mg INHALATION Q6HWA.RT [facility] Last Admin: 12/08/19 07:55 Dose: 2.5 mg Documented by: Budesonide (Pulmicort Aerosol) 0.5 mg INHALATION Q12H.RT [facility] Last Admin: 12/08/19 07:55 Dose: 0.5 mg Documented by: Bupropion HCl (Wellbutrin Sr (100mg Tablets)) 100 mg PO BID [facility] Last Admin: 12/08/19 08:56 Dose: 100 mg Documented by: Clonazepam (Klonopin) 2 mg PO QHS [facility] Last Admin: 12/07/19 21:04 Dose: Not Given Documented by: Dextrose (D50w Syringe) 0 gm IV X1 PRN; Protocol PRN Reason: Hypoglycemia Enoxaparin Sodium (Lovenox) 40 mg SC DAILY@0600 [facility] Last Admin: 12/08/19 06:29 Dose: 40 mg Documented by: Famotidine (Pepcid) 20 mg PO BID [facility] Last Admin: 12/08/19 08:56 Dose: 20 mg Documented by: Fluticasone Propionate (Flonase Nasal [place]) 2 spray NASAL QHS [facility] Last Admin: 12/07/19 21:04 Dose: 2 spray Documented by: Folic Acid (Folic Acid) 0.5 mg PO DAILY@0800 [facility] Last Admin: 12/08/19 08:56 Dose: 0.5 mg Documented by: Glucagon () 1 mg IM .X1 PRN PRN Reason: Hypoglycemia Guaifenesin (Robitussin) 20 ml PO Q4H PRN PRN PRN Reason: COUGH Last Admin: 12/07/19 22:35 Dose: 20 ml Documented by: Hydralazine HCl (Apresoline Iv) 10 mg IV Q4H PRN PRN PRN Reason: SBP > 160 Last Admin: 12/07/19 22:35 Dose: 10 mg Documented by: Sodium Chloride () 250 mls @ 15 mls/hr IV .[id number] PRN PRN Reason: Saline Flush Sodium Chloride () 250 mls @ 15 mls/hr IV .[id number] PRN PRN Reason: Additional IVPB Infusion Ceftriaxone Sodium 2 gm/ (Sodium Chloride) 50 mls @ 100 mls/hr IV Q24 [facility] Last Infusion: 12/08/19 10:06 Dose: Infused Documented by: Insulin Human Lispro (Humalog Efrain (Bkc)) [facility] Last Admin: 12/08/19 06:29 Dose: 1 u Documented by: Labetalol HCl (Trandate) 200 mg PO BID [facility] Last Admin: 12/08/19 08:56 Dose: 200 mg Documented by: Losartan Potassium (Cozaar) 50 mg PO DAILY [facility] Last Admin: 12/08/19 08:56 Dose: 50 mg Documented by: Melatonin (Melatonin) 3 mg PO QHS PRN PRN PRN Reason: INSOMNIA Last Admin: 12/07/19 22:36 Dose: 3 mg Documented by: Montelukast Sodium (Singulair) 10 mg PO DAILY PRN PRN Reason: ALLERGIES Nitroglycerin (Nitrostat) 0.4 mg SUBLINGUAL Q5M PRN PRN Reason: CARDIAC/CHEST PAIN Nutritional Formula (Lactose Free) (Glucerna Shake) 120 ml PO 4X/DAY [facility] Last Admin: 12/08/19 08:56 Dose: Not Given Documented by: Ondansetron HCl (Zofran) 4 mg IV Q8H PRN PRN PRN Reason: NAUSEA/VOMITING Prochlorperazine Edisylate (Compazine Iv) 5 mg IV Q4H PRN PRN PRN Reason: Breakthrough nausea/vomiting Sodium Chloride () 10 - 40 ml IV UD PRN PRN Reason: SALINE FLUSH Last Admin: 12/08/19 08:56 Dose: 10 ml Documented by: Throat Lozenges (Cepacol Sore Throat Lozenge) 1 lozenge MUCOUS MEM Q2H PRN PRN PRN Reason: SORE THROAT Last Admin: 12/07/19 08:25 Dose: 1 lozenge Documented by: Tramadol HCl (Ultram) 50 mg PO Q6H PRN PRN PRN Reason: Pain Score 6-10/10 Last Admin: 12/07/19 18:43 Dose: 50 mg Documented by: Discharge Diet: 1800 Calorie Control Diet Discharge Activity: Return to Normal Activity Home Medications: Medications to take at Discharge Calcium Carbonate/Vitamin D3 [Caltrate 600 + D Soft Chew Tab] 2 ea PO DAILY 11/08/19 Clonazepam [Klonopin] 2 mg PO QHS 11/08/19 Cyanocobalamin (Vitamin B-12) [Vitamin B12] 1,000 mcg PO DAILY 11/08/19 Fluticasone Propion/Salmeterol [Fluticasone-Salmeterol 250-50] 2 puff IH BID PRN 11/08/19 Folic Acid 0.4 mg PO DAILY@0800 11/08/19 Glimepiride [Amaryl] 4 mg PO BID 11/08/19 Losartan Potassium [Cozaar] 50 mg PO DAILY 11/08/19 Montelukast [Singulair] 10 mg PO DAILY PRN 11/08/19 Sitagliptin Phosphate [Januvia] 75 mg PO DAILY 11/08/19 Triamcinolone Acetonide [Nasacort] 2 spray NS QHS 11/08/19 buPROPion SR [Wellbutrin Sr] 100 mg PO BID 11/08/19 Labetalol [Trandate (Beta Rayna)] 200 mg PO BID 12/06/19 Primary Care Physician: Yon Anton MD [Primary Care Provider] - Please Follow Up With: Yon Anton MD When: Patient to call for appointment when out of current time Minutes spent on discharge:: 35 Patient Condition:: Stable Medical Necessity - Tobacco Use Smoking Status: Never smoker Meaningful Use Info Meaningful Use Diagnoses (Choose all that apply): None applicable Inpatient E&M: 91419 Disch Hosp
--- NOTE | 2019-12-08 11:37 | PHA.DC.MR ---
Pharmacy Service has performed discharge medication reconciliation for this patient. The patient's discharge medication list was reviewed for discrepancies and discrepancies were resolved. Home Medications Calcium Carbonate/Vitamin D3 [Caltrate 600 + D Soft Chew Tab] 2 ea PO DAILY 11/08/19 Clonazepam [Klonopin] 2 mg PO QHS 11/08/19 Cyanocobalamin (Vitamin B-12) [Vitamin B12] 1,000 mcg PO DAILY 11/08/19 Fluticasone Propion/Salmeterol [Fluticasone-Salmeterol 250-50] 2 puff IH BID PRN 11/08/19 Folic Acid 0.4 mg PO DAILY@0800 11/08/19 Glimepiride [Amaryl] 4 mg PO BID 11/08/19 Losartan Potassium [Cozaar] 50 mg PO DAILY 11/08/19 Montelukast [Singulair] 10 mg PO DAILY PRN 11/08/19 Sitagliptin Phosphate [Januvia] 75 mg PO DAILY 11/08/19 Triamcinolone Acetonide [Nasacort] 2 spray NS QHS 11/08/19 buPROPion SR [Wellbutrin Sr] 100 mg PO BID 11/08/19 Labetalol [Trandate (Beta Rayna)] 200 mg PO BID 12/06/19
[2019-12-08 11:56] LABS: Bedside Glucose 211 mg/dL (70-110)
--- NOTE | 2019-12-09 14:43 | CASEMGMT ---
DC DATE: 12.08.2019 DC DISPOSITION: Home DC DIAGNOSIS: Suspected [id number] LACE/STRATA: 08/16 F/U APPTS MADE PRIOR TO DC: yes PRESCRIPTIONS ACQUIRED BY PT:X Attempted call to phone. No answer and no message machine with name identifier. Sherri WHITTAKERN RN ACM
== END 2019-12-08 14:39 | disposition home or self-care (01) | DRG 195 ==
LOC: ED 16:08 → MS3 18:05 → PCU 12-06 07:13
PROVIDERS: Physician Assistant; Admitting Provider Family Medicine; Emergency Provider Emergency Medicine; PCP Family Medicine; Visit Provider Internal Medicine
DX: J12.89 Other viral pneumonia (principal); B97.29 Other coronavirus as the cause of diseases classified elsewhere; I34.1 Nonrheumatic mitral (valve) prolapse; I10 Essential (primary) hypertension; E78.5 Hyperlipidemia, unspecified; K21.9 Gastro-esophageal reflux disease without esophagitis; J45.20 Mild intermittent asthma, uncomplicated; F41.9 Anxiety disorder, unspecified; E11.9 Type 2 diabetes mellitus without complications; G43.909 Migraine, unspecified, not intractable, without status migrainosus; Z85.3 Personal history of malignant neoplasm of breast; Z79.84 Long term (current) use of oral hypoglycemic drugs; Z92.3 Personal history of irradiation
CPT/HCPCS: 36415; 71045; 71275; 80048; 82962; 83605; 84484; 85025; 85379; 87040; 87449; 87633; 87641; 87804; 87807; 93005; 94640; 97802; 99284; J7030; Q9967; A4216; J0696

== ENCOUNTER → 2020-01-16 | Outpatient (CLI) | payer OTHER, SELFPAY ==
[2019-12-05 19:55] VITALS: BMI 25.8
--- NOTE | 2020-01-16 16:14 | RAD_ITS ---
STUDY: X-RAY CHEST REASON FOR EXAM: Female, 65 years old. Asthma, patient had COVED in November with hospitalization TECHNIQUE: PA and lateral views of the chest. COMPARISON: Prior study of 12/06/2019 FINDINGS: The lungs are clear and expanded. There is no demonstrated pleural abnormality. Normal size heart. Normal mediastinum and silverio. Normal visualized pulmonary arteries. Normal visualized aortic arch and descending thoracic aorta. There is a mild thoracolumbar dextroscoliosis. There is mild endplate spondylosis of the lower thoracic spine. Normal visualized ribs, clavicles, and shoulders. There is no demonstrated abnormality of the visualized soft tissue structures of the upper abdomen. RAD/Chest PA and Lateral IMPRESSION: Mild thoracolumbar dextroscoliosis. Mild endplate spondylosis of the lower thoracic spine. The lungs are clear. Electronically Signed: Mello Alford MD at 16:40 EDT , Service support ,
--- NOTE | 2020-01-16 16:20 | RAD_ITS ---
STUDY: X-RAY - PARANASAL SINUSES REASON FOR EXAM: Female, 65 years old. Rhinitis, drainage TECHNIQUE: 3 view(s) of the paranasal sinuses were obtained. COMPARISON: None. FINDINGS: Normal visualized frontal, maxillary, ethmoidal and sphenoid sinuses. Normal visualized facial bones. The soft tissue structures are unremarkable. RAD/Sinuses min 3 Views IMPRESSION: Normal x-rays of the paranasal sinuses. Electronically Signed: Mello Alford MD at 16:38 EDT , Service support ,
== END | disposition home or self-care (01) ==
LOC: MTRAD 16:13
PROVIDERS: PCP Family Medicine; Referring Provider Family Medicine; Visit Provider Family Medicine
DX: J31.0 Chronic rhinitis (principal); J45.909 Unspecified asthma, uncomplicated
CPT/HCPCS: 70220; 71046

== ENCOUNTER → 2020-01-30 | Outpatient (CLI) | payer OTHER, SELFPAY ==
[2019-12-05 19:55] VITALS: BMI 25.8
[2020-01-30 10:18] LABS: Absolute Lymphocyte Count 1.43 X10^3/uL (0.83-4.51); Basophil# 0.06 X10^3/uL; Basophil% 1.2 % (0-1); Eosinophil# 0.26 X10^3/uL; Hematocrit 37.7 % (37-47); Hemoglobin 12.9 g/dL (12.0-15.0); Lymphocyte # 1.43 X10^3/ul (4.0); Lymphocyte % 27.8 % (19-41); Mean Corp Hgb Conc 34.2 g/dL (32-36); Mean Corpuscular Hgb 31.5 pg (27.0-32.0); Mean Corpuscular Volume 92.2 fL (81-99); Mean Platelet Vol. 9.1 fl (6.2-12.0); Monocyte# 0.41 X10^3/uL; NRBC Flagged by Analyzer 0 % (0-5); Neutrophil # 2.97 X10^3/uL (2.7-7.7); Neutrophil % 57.6 % (47-70); Platelet Count 195 K/mm3 (150-450); RBC Distribution Width CV 12.9 % (11.6-14.6); RBC Distribution Width SD 43.2 fl (35.1-43.9); Red Blood Count 4.09 M/mm3 (4.2-5.4); White Blood Count 5.2 K/mm3 (4.4-11.0)
[2020-01-30 10:19] LABS: Hemoglobin A1c 5.7 % (4.2-6.3)
[2020-01-30 10:27] LABS: ALB/GLOB Ratio 1.1 RATIO (0.9-2.4); AST(SGOT) 24 U/L (15-37); Alanine Aminotransfer ALT/SGPT 35 U/L (13-56); Albumin, Serum 3.8 g/dL (3.2-5.0); Alkaline Phosphatase 91 U/L (45-117); Anion Gap 6 (5-15); BUN 20 mg/dL (7-18); BUN/Creat Ratio 16.9 RATIO (10-20); Calcium,Total 9.4 mg/dL (8.5-10.1); Chloride 108 mmol/L (98-107); Cholesterol 293 mg/dL (200); Creatinine, Serum 1.18 mg/dL (0.55-1.02); EST Glomerular Filtration Rate 49 mL/min (>60); Est Glom Filt Rate - Afr Amer 59 mL/min (>60); Globulin 3.5 g/dL (2.2-4.2); Glucose 134 mg/dL (74-106); High Density Lipoprotein 40 mg/dL; Potassium 3.5 mmol/L (3.5-5.1); Protein, Total 7.3 g/dL (6.4-8.2); Sodium Level 143 mmol/L (136-145); Triglycerides 285 mg/dL; Very Low Density Lipoprotein 57 mg/dL (5-40)
== END | disposition home or self-care (01) ==
LOC: MTLAB 09:07
PROVIDERS: PCP Family Medicine; Referring Provider Family Medicine; Visit Provider Family Medicine
DX: E11.9 Type 2 diabetes mellitus without complications (principal)
CPT/HCPCS: 36415; 80053; 80061; 83036; 85025

== ENCOUNTER → 2020-02-09 | Outpatient (CLI) | payer OTHER, SELFPAY ==
[2019-12-05 19:55] VITALS: BMI 25.8
--- NOTE | 2020-02-09 14:45 | RAD_ITS ---
STUDY: X-RAY - CERVICAL SPINE REASON FOR EXAM: Female, 65 years old. POSTERIOR PAIN AND INCREASING HEADACHE FREQUENCY X1 MONTH S/P HAVING AND BEING TREATED FOR COVID. HX BREAST CA X1 YR AGO WITH RAD/CHEMO TREATMENT TECHNIQUE: 7 view(s) of the cervical spine were obtained. COMPARISON: None FINDINGS: Normal anterior atlantoaxial articulation. Normal odontoid process. Normal cervical lordosis. There is multi-level endplate spondylosis. There is mild multi-level degenerative disc disease with multilevel disc space narrowing. Normal visualized intervertebral neuroforamina. The soft tissue structures are unremarkable. RAD/Cerv Spine Obl/Flex/Ext Comp IMPRESSION: Multilevel degenerative changes. Electronically Signed: Donna Peterson MD at 16:52 EDT Tel , Service support ,
== END | disposition home or self-care (01) ==
LOC: RAD 14:42
PROVIDERS: PCP Family Medicine; Referring Provider Psychiatry & Neurology Neurology; Visit Provider Psychiatry & Neurology Neurology
DX: M54.2 Cervicalgia (principal)
CPT/HCPCS: 72052

== ENCOUNTER → 2020-03-09 | Outpatient (CLI) | payer OTHER, SELFPAY ==
[2019-12-05 19:55] VITALS: BMI 25.8
[2020-03-09 12:30] LABS: Anion Gap 5 (5-15); BUN 15 mg/dL (7-18); Calcium,Total 9.4 mg/dL (8.5-10.1); Chloride 104 mmol/L (98-107); Cholesterol 259 mg/dL (200); EST Glomerular Filtration Rate 59 mL/min (>60); Est Glom Filt Rate - Afr Amer 72 mL/min (>60); Glucose 137 mg/dL (74-106); High Density Lipoprotein 44 mg/dL; Potassium 3.7 mmol/L (3.5-5.1); Sodium Level 139 mmol/L (136-145); Triglycerides 233 mg/dL; Very Low Density Lipoprotein 47 mg/dL (5-40)
[2020-03-09 12:33] LABS: Hemoglobin A1c 5.6 % (3.8-5.6)
== END | disposition home or self-care (01) ==
LOC: MFPLAB 10:03
PROVIDERS: Family Medicine; PCP Family Medicine; Visit Provider Family Medicine
DX: E11.9 Type 2 diabetes mellitus without complications (principal); E78.5 Hyperlipidemia, unspecified; I10 Essential (primary) hypertension
CPT/HCPCS: 36415; 80048; 80061; 83036

== ENCOUNTER → 2020-03-09 | Outpatient (CLI) | payer OTHER, SELFPAY ==
[2019-12-05 19:55] VITALS: BMI 25.8
--- NOTE | 2020-03-09 14:10 | VDLE_ITS ---
Reason For Study: ankle swelling RIGHT LEFT CFV is compressible, spontaneous, phasic, GSV is normal. competent and demonstrates normal CFV is compressible, spontaneous, phasic, augmentation. competent, and demonstrates normal Procedure augmentation. Exam performed in department. FV is compressible, spontaneous, phasic, The exam was diagnostic. competent and demonstrates normal A preliminary report was called and/or faxed augmentation. to Dr. Marina @ [phone] @ 2:50 pm. POP V is compressible, spontaneous, phasic, competent and demonstrates normal augmentation. T/P Trunk is compressible. PTV is compressible. LT PerV is compressible. Interpretation Summary Deep veins of the left lower extremity are patent and compressible segmentally. There is no evidence of left lower extremity deep vein thrombosis. Valvular competence appears intact within the proximal deep venous system on the left . The left great saphenous vein appears patent and compressible segmentally. Ordering Physician: Ashley Marina Referring Physician: Ashley Marina Performed By: Ashleigh Callaway, NASIMA, RVT
== END | disposition home or self-care (01) ==
PROVIDERS: PCP Family Medicine; Referring Provider Family Medicine; Visit Provider Family Medicine
DX: M25.473 Effusion, unspecified ankle (principal)
CPT/HCPCS: 93971

== ENCOUNTER → 2020-05-01 | Outpatient (CLI) | payer OTHER, SELFPAY ==
[2019-12-05 19:55] VITALS: BMI 25.8
[2020-05-01 10:09] LABS: Erythrocyte Sedimentation Rate 7 mm/hr (0-30)
[2020-05-01 10:12] LABS: Absolute Lymphocyte Count 1.55 X10^3/uL (0.83-4.51); Absolute Neutrophil Count 2.5 X10^3/uL (2.0-7.7); Basophil# 0.07 X10^3/uL; Basophil% 1.5 % (0-1); Eosinophil# 0.25 X10^3/uL; Eosinophils% 5.2 % (0-5); Hemoglobin 12.5 g/dL (12.0-15.0); Lymphocyte # 1.55 X10^3/ul (4.0); Lymphocyte % 32.3 % (19-41); Mean Corp Hgb Conc 32.9 g/dL (32-36); Mean Corpuscular Hgb 29.8 pg (27.0-32.0); Mean Corpuscular Volume 90.7 fL (81-99); Mean Platelet Vol. 9.4 fl (6.2-12.0); Monocyte# 0.44 X10^3/uL; Monocyte% 9.2 % (0-10); NRBC Flagged by Analyzer 0 % (0-5); Neutrophil # 2.47 X10^3/uL (2.7-7.7); Neutrophil % 51.4 % (47-70); Platelet Count 199 K/mm3 (150-450); RBC Distribution Width CV 12.5 % (11.6-14.6); Red Blood Count 4.19 M/mm3 (4.2-5.4); White Blood Count 4.8 K/mm3 (4.4-11.0)
[2020-05-01 10:50] LABS: Hemoglobin A1c 6.5 % (3.8-5.6)
[2020-05-01 10:51] LABS: Vitamin D,25 Hydroxy 49.8 ng/mL
[2020-05-01 11:15] LABS: ALB/GLOB Ratio 1.2 RATIO (0.9-2.4); AST(SGOT) 28 U/L (15-37); Alanine Aminotransfer ALT/SGPT 41 U/L (13-56); Albumin, Serum 3.8 g/dL (3.2-5.0); Alkaline Phosphatase 79 U/L (45-117); Anion Gap 6 (5-15); BUN 16 mg/dL (7-18); BUN/Creat Ratio 14.5 RATIO (10-20); CRP < 2.90 mg/L (0.0-3.0); Calcium,Total 9.1 mg/dL (8.5-10.1); Chloride 103 mmol/L (98-107); EST Glomerular Filtration Rate 53 mL/min (>60); Est Glom Filt Rate - Afr Amer 64 mL/min (>60); Globulin 3.2 g/dL (2.2-4.2); Glucose 164 mg/dL (74-106); Potassium 3.4 mmol/L (3.5-5.1); Sodium Level 138 mmol/L (136-145); T4 Free Direct 0.79 ng/dL (0.76-1.46); Thyroid Stim Hormone (TSH) 1.54 uIU/mL (0.358-3.74)
[2020-05-02 15:25] LABS: ANTINUCLEAR ANTIBODIES DIRECT Negative (Negative)
[2020-05-03 02:16] LABS: Rapid Plasmin Reagin (RPR) NONREACTIVE (NONREACTIVE)
[2020-05-03 11:32] LABS: Copper, Serum or Plasma 111 ug/dL (72-166); Zinc, Plasma or Serum 110 ug/dL (56-134)
== END | disposition home or self-care (01) ==
PROVIDERS: PCP Family Medicine; Referring Provider Family Medicine; Visit Provider Family Medicine
DX: E11.9 Type 2 diabetes mellitus without complications (principal); R43.8 Other disturbances of smell and taste; R53.83 Other fatigue
CPT/HCPCS: 36415; 80053; 82306; 82525; 83036; 84439; 84443; 84630; 85025; 85652; 86038; 86140; 86592

== ENCOUNTER → 2020-05-03 | Outpatient (CLI) | payer OTHER, SELFPAY ==
[2019-12-05 19:55] VITALS: BMI 25.8
--- NOTE | 2020-05-03 13:13 | ECHOCS_ITS ---
Reason For Study: Syncope Procedure This was a 2D Doppler, Color Flow transthoracic echocardiogram. The study was technically difficult. Exam performed in department. Left Ventricle Normal LV size. The estimated ejection fraction is 60 %. No evidence for diastolic dysfunction. No regional wall motion abnormalities noted. Right Ventricle Normal RV size. Normal systolic function. Atria Normal left atrium. Normal right atrium. No doppler evidence for ASD. Mitral Valve There is no mitral valve stenosis. No mitral valve insufficiency. Tricuspid Valve There is no tricuspid stenosis. No tricuspid valve insufficiency. Unable to estimate RV systolic pressure due to inadequate jet, pulmonary artery pressure probably normal. Aortic Valve Trisinus/trileaflet aortic valve. There is no aortic stenosis. No aortic valve insufficiency. Pulmonic Valve There is no pulmonic valvular stenosis. Trivial pulmonic valve insufficiency identified. Great Vessels Normal aortic root. Pericardium/Pleural No pericardial effusion. Medication 22 gauge I.V. with prn adaptor inserted into right arm. Diluted definity 2ml given slow IV push to enhance endocardial definition. MMode/2D Measurements & Calculations LVIDd: 3.6 cm IVSd: 0.82 cm Ao root diam: 3.1 cm LVIDs: 2.0 cm LVPWd: 0.85 cm RVDd: 3.3 cm FS: 44.1 % LAV(MOD-bp): 39.3 ml LA A4 area: 14.1 cm2 LA dimension(2D): 3.2 cm LAV(MOD-bp) Indexed: 22.1 ml/m2 LAV(MOD-sp2): 45.7 ml LAV(MOD-sp4): 33.0 ml RA A4 area: 9.8 cm2 Doppler Measurements & Calculations MV E max marino: 76.7 cm/sec Lat Peak E' Marino: 7.3 cm/sec Med Peak E' Marino: 7.6 cm/sec MV A max marino: 105.9 cm/sec E/E' lat: 10.5 E/E' med: 10.1 MV E/A: 0.72 Ao V2 max: 120.9 cm/sec LV V1 max: 90.3 cm/sec PA V2 max: 105.8 cm/sec Ao max P.8 mmHg LV V1 max P.3 mmHg Interpretation Summary The estimated ejection fraction is 60 %. No evidence for diastolic dysfunction. Ordering Physician: Yon Anton Referring Physician: Yon Anton Performed By: Rhonda Olsen RDCS
== END | disposition home or self-care (01) ==
LOC: CVS 13:11
PROVIDERS: PCP Family Medicine; Referring Provider Family Medicine; Visit Provider Family Medicine
DX: R55 Syncope and collapse (principal)
CPT/HCPCS: 93306; Q9957; A4216; C8929

== ENCOUNTER → 2020-07-17 15:29 | Outpatient (CLI) | payer OTHER, SELFPAY ==
[2019-12-05 19:55] VITALS: BMI 25.8
[2020-07-17 17:29] LABS: Absolute Lymphocyte Count 1.68 X10^3/uL (0.83-4.51); Absolute Neutrophil Count 4.3 X10^3/uL (2.0-7.7); Basophil# 0.05 X10^3/uL; Basophil% 0.7 % (0-1); Eosinophil# 0.24 X10^3/uL; Eosinophils% 3.5 % (0-5); Hematocrit 37.6 % (37-47); Hemoglobin 12.6 g/dL (12.0-15.0); Lymphocyte # 1.68 X10^3/ul (4.0); Lymphocyte % 24.5 % (19-41); Mean Corp Hgb Conc 33.5 g/dL (32-36); Mean Corpuscular Hgb 30.5 pg (27.0-32.0); Mean Platelet Vol. 9.9 fl (6.2-12.0); Monocyte# 0.55 X10^3/uL; NRBC Flagged by Analyzer 0 % (0-5); Neutrophil % 62.9 % (47-70); Platelet Count 212 K/mm3 (150-450); RBC Distribution Width CV 13.1 % (11.6-14.6); RBC Distribution Width SD 42.5 fl (35.1-43.9); Red Blood Count 4.13 M/mm3 (4.2-5.4); White Blood Count 6.9 K/mm3 (4.4-11.0)
[2020-07-17 18:00] LABS: ALB/GLOB Ratio 1.3 RATIO (0.9-2.4); AST(SGOT) 31 U/L (15-37); Alanine Aminotransfer ALT/SGPT 52 U/L (13-56); Albumin, Serum 3.9 g/dL (3.2-5.0); Alkaline Phosphatase 94 U/L (45-117); Anion Gap 8 (5-15); BUN 18 mg/dL (7-18); BUN/Creat Ratio 16.7 RATIO (10-20); Calcium,Total 9.7 mg/dL (8.5-10.1); Chloride 102 mmol/L (98-107); Creatinine, Serum 1.08 mg/dL (0.55-1.02); EST Glomerular Filtration Rate 54 mL/min (>60); Est Glom Filt Rate - Afr Amer 66 mL/min (>60); Glucose 198 mg/dL (74-106); Magnesium 2.1 mg/dL (1.6-2.6); Potassium 3.8 mmol/L (3.5-5.1); Protein, Total 6.9 g/dL (6.4-8.2); Sodium Level 139 mmol/L (136-145)
[2020-07-17 18:12] LABS: Microalbumin,Random Urine 5.8 mg/L (NO RANGE EST.); Microalbumin:Creatinine Ratio 10.4 mg/g CRE (<30 mg/g CRE)
== END ==
PROVIDERS: PCP Family Medicine; Referring Provider Family Medicine; Visit Provider Family Medicine
DX: E11.9 Type 2 diabetes mellitus without complications (principal); M79.89 Other specified soft tissue disorders
CPT/HCPCS: 36415; 80053; 82043; 82570; 83735; 85025

== ENCOUNTER → 2020-07-25 16:58 | Outpatient (CLI) | payer OTHER, SELFPAY ==
[2019-12-05 19:55] VITALS: BMI 25.8
[2020-07-25 18:27] LABS: Absolute Neutrophil Count 4.1 X10^3/uL (2.0-7.7); Basophil# 0.06 X10^3/uL; Basophil% 0.9 % (0-1); Eosinophil# 0.25 X10^3/uL; Eosinophils% 3.6 % (0-5); Hematocrit 39.5 % (37-47); Hemoglobin 12.8 g/dL (12.0-15.0); Lymphocyte % 28.7 % (19-41); Mean Corp Hgb Conc 32.4 g/dL (32-36); Mean Corpuscular Hgb 29.7 pg (27.0-32.0); Mean Corpuscular Volume 91.6 fL (81-99); Mean Platelet Vol. 9.7 fl (6.2-12.0); Monocyte# 0.58 X10^3/uL; Monocyte% 8.3 % (0-10); NRBC Flagged by Analyzer 0 % (0-5); Neutrophil # 4.06 X10^3/uL (2.7-7.7); Neutrophil % 58.2 % (47-70); Platelet Count 224 K/mm3 (150-450); RBC Distribution Width CV 12.9 % (11.6-14.6); RBC Distribution Width SD 43.7 fl (35.1-43.9); Red Blood Count 4.31 M/mm3 (4.2-5.4)
[2020-07-25 18:44] LABS: ALB/GLOB Ratio 1.1 RATIO (0.9-2.4); AST(SGOT) 33 U/L (15-37); Alanine Aminotransfer ALT/SGPT 61 U/L (13-56); Albumin, Serum 4.1 g/dL (3.2-5.0); Alkaline Phosphatase 103 U/L (45-117); Anion Gap 6 (5-15); BUN 28 mg/dL (7-18); BUN/Creat Ratio 21.9 RATIO (10-20); Calcium,Total 10.3 mg/dL (8.5-10.1); Chloride 97 mmol/L (98-107); Creatinine, Serum 1.28 mg/dL (0.55-1.02); EST Glomerular Filtration Rate 45 mL/min (>60); Est Glom Filt Rate - Afr Amer 54 mL/min (>60); Globulin 3.6 g/dL (2.2-4.2); Glucose 226 mg/dL (74-106); Protein, Total 7.7 g/dL (6.4-8.2); Sodium Level 138 mmol/L (136-145)
== END ==
PROVIDERS: PCP Family Medicine; Referring Provider Family Medicine; Visit Provider Family Medicine
DX: M79.89 Other specified soft tissue disorders (principal)
CPT/HCPCS: 36415; 80053; 85025

== ENCOUNTER → 2020-08-02 15:28 | Outpatient (CLI) | payer OTHER, SELFPAY ==
[2019-12-05 19:55] VITALS: BMI 25.8
[2020-08-02 18:10] LABS: Anion Gap 7 (5-15); BUN 20 mg/dL (7-18); BUN/Creat Ratio 15.7 RATIO (10-20); Calcium,Total 9.9 mg/dL (8.5-10.1); Chloride 103 mmol/L (98-107); Creatinine, Serum 1.27 mg/dL (0.55-1.02); EST Glomerular Filtration Rate 45 mL/min (>60); Est Glom Filt Rate - Afr Amer 54 mL/min (>60); Glucose 185 mg/dL (74-106); Magnesium 2.8 mg/dL (1.6-2.6); Potassium 4.1 mmol/L (3.5-5.1); Sodium Level 138 mmol/L (136-145)
== END ==
PROVIDERS: PCP Family Medicine; Visit Provider Family Medicine
DX: E87.6 Hypokalemia (principal)
CPT/HCPCS: 36415; 80048; 83735

== ENCOUNTER → 2020-10-29 09:37 | Outpatient (CLI) | payer OTHER, SELFPAY ==
[2020-10-25 14:10] VITALS: BMI 31.2
[2020-10-29 12:05] LABS: Absolute Lymphocyte Count 1.64 X10^3/uL (0.83-4.51); Absolute Neutrophil Count 2.5 X10^3/uL (2.0-7.7); Basophil# 0.07 X10^3/uL; Basophil% 1.4 % (0-1); Eosinophil# 0.26 X10^3/uL; Eosinophils% 5.3 % (0-5); Hematocrit 40.1 % (37-47); Hemoglobin 13.1 g/dL (12.0-15.0); Lymphocyte # 1.64 X10^3/ul (4.0); Lymphocyte % 33.4 % (19-41); Mean Corp Hgb Conc 32.7 g/dL (32-36); Mean Platelet Vol. 10.1 fl (6.2-12.0); Monocyte# 0.43 X10^3/uL; Monocyte% 8.8 % (0-10); NRBC Flagged by Analyzer 0 % (0-5); Neutrophil % 50.9 % (47-70); Platelet Count 190 K/mm3 (150-450); RBC Distribution Width CV 13.2 % (11.6-14.6); RBC Distribution Width SD 45.1 fl (35.1-43.9); Red Blood Count 4.22 M/mm3 (4.2-5.4); White Blood Count 4.9 K/mm3 (4.4-11.0)
[2020-10-29 12:34] LABS: Hemoglobin A1c 9.1 % (3.8-5.6)
[2020-10-29 12:39] LABS: ALB/GLOB Ratio 1.2 RATIO (0.9-2.4); AST(SGOT) 27 U/L (15-37); Alanine Aminotransfer ALT/SGPT 43 U/L (13-56); Albumin, Serum 3.9 g/dL (3.2-5.0); Alkaline Phosphatase 107 U/L (45-117); Anion Gap 8 (5-15); BUN 18 mg/dL (7-18); BUN/Creat Ratio 15.3 RATIO (10-20); Calcium,Total 9.3 mg/dL (8.5-10.1); Chloride 107 mmol/L (98-107); Creatinine, Serum 1.18 mg/dL (0.55-1.02); EST Glomerular Filtration Rate 49 mL/min (>60); Est Glom Filt Rate - Afr Amer 59 mL/min (>60); Globulin 3.3 g/dL (2.2-4.2); Glucose 188 mg/dL (74-106); Protein, Total 7.2 g/dL (6.4-8.2); Sodium Level 141 mmol/L (136-145)
== END ==
PROVIDERS: PCP Family Medicine; Visit Provider Family Medicine
DX: E11.9 Type 2 diabetes mellitus without complications (principal); R53.83 Other fatigue
CPT/HCPCS: 36415; 80053; 83036; 85025

== ENCOUNTER → 2020-11-01 14:04 | Outpatient (CLI) | payer OTHER, SELFPAY ==
[2020-10-25 14:10] VITALS: BMI 31.2
--- NOTE | 2020-11-01 14:08 | CT_ITS ---
STUDY: CT CHEST WITH CONTRAST REASON FOR EXAM: Female, 65 years old. DYSPNEA, HX COVID 11/2019 RADIATION DOSAGE (If Supplied By Facility): CTDIvol = ( 11.33 ) mGy, DLP = ( 442.07 ) mGycm TECHNIQUE: Transaxial imaging was performed following intravenous administration of IV 100mL Isovue-300. Multiplanar coronal and sagittal images were reformatted. Individualized dose optimization techniques were used for this CT. COMPARISON: Comparison is made with prior examination dated 12/05/2019. FINDINGS: Small benign appearing bilateral axillary lymph nodes. Minimal degree of residual increased markings at the lung bases suggestive of mild basilar scarring. The previously seen peripheral patchy areas of the groundglass appearance of the results. There is no demonstrated pleural abnormality. There are calcifications of the coronary arteries. Normal mediastinum. Normal hilar regions. Normal enhanced pulmonary arteries. There is atherosclerotic calcification of the aortic arch and descending thoracic aorta. There are degenerative changes of the thoracic spine. There is no demonstrated abnormality of the visualized upper abdomen. CT/Chest WITH Contrast IMPRESSION: Minimal residual increased markings at the lung bases suggestive of scarring. Since prior study, the previously seen peripheral-based areas of groundglass appearance of cleared. Electronically Signed: Ej Brooks MD at 15:09 EST , Service support ,
== END ==
PROVIDERS: PCP Family Medicine; Referring Provider Internal Medicine Cardiovascular Disease; Visit Provider Internal Medicine Cardiovascular Disease
DX: R06.00 Dyspnea, unspecified (principal); I34.1 Nonrheumatic mitral (valve) prolapse; E78.2 Mixed hyperlipidemia; I10 Essential (primary) hypertension
CPT/HCPCS: 71260; Q9967; A4216

== ENCOUNTER → 2020-11-08 07:17 | Outpatient (CLI) | payer OTHER, SELFPAY ==
[2020-10-25 14:10] VITALS: BMI 31.2
--- NOTE | 2020-11-08 07:19 | ECHOCS_ITS ---
Reason For Study: SOB Procedure This was a 2D Doppler, Color Flow transthoracic echocardiogram. The study was technically difficult. Contrast injection was performed. Exam performed in department. Left Ventricle Normal LV size. Left ventricular systolic function is normal. The estimated ejection fraction is 65 %. No evidence for diastolic dysfunction. No regional wall motion abnormalities noted. Right Ventricle Normal RV size. Normal systolic function. Atria Normal left atrium. Normal right atrium. No doppler evidence for ASD. Mitral Valve There is no mitral annular calcification. Normal mitral valve. Trivial mitral valve insufficiency. Tricuspid Valve Normal tricuspid valve. Trivial tricuspid valve insufficiency. Unable to estimate RV systolic pressure/pulmonary artery pressure due to technically difficult study. Aortic Valve Trisinus/trileaflet aortic valve. Normal aortic valve. Pulmonic Valve The pulmonic valve is not well visualized. Trivial pulmonic valve insufficiency. Great Vessels Normal sized aortic root. Pericardium/Pleural No pericardial effusion. Medication Diluted definity 3ml given slow IV push to enhance endocardial definition. MMode/2D Measurements & Calculations LVIDd: 3.1 cm IVSd: 1.2 cm Ao root diam: 2.8 cm LVIDs: 1.6 cm LVPWd: 0.98 cm RVDd: 3.2 cm FS: 47.8 % LAV(MOD-bp): 14.4 ml LVAd ap4: 28.5 cm2 SV(MOD-sp4): 49.4 ml LAV(MOD-bp) Indexed: 7.6 ml/m2 EDV(MOD-sp4): 79.6 ml LAV(MOD-sp2): 17.1 ml EDV(sp4-el): 81.6 ml LAV(MOD-sp4): 11.8 ml LVAs ap4: 16.3 cm2 ESV(MOD-sp4): 30.2 ml ESV(sp4-el): 30.8 ml EF(MOD-sp4): 62.1 % EF(sp4-el): 62.3 % SV(sp4-el): 50.9 ml LA A4 area: 7.6 cm2 LA dimension(2D): 2.9 cm RA A4 area: 5.9 cm2 Doppler Measurements & Calculations MV E max marino: 52.9 cm/sec Lat Peak E' Marino: 6.6 cm/sec Med Peak E' Marino: 5.2 cm/sec MV A max marino: 111.0 cm/sec E/E' lat: 8.0 E/E' med: 10.2 MV E/A: 0.48 Ao V2 max: 132.5 cm/sec LV V1 max: 114.2 cm/sec PA V2 max: 121.2 cm/sec Ao max P.0 mmHg LV V1 max P.2 mmHg Interpretation Summary The study was technically difficult. Contrast injection was performed. Left ventricular systolic function is normal. The estimated ejection fraction is 65 %. Trivial mitral valve insufficiency. Trivial tricuspid valve insufficiency. Trivial pulmonic valve insufficiency. Unable to estimate RV systolic pressure/pulmonary artery pressure due to technically difficult study. No evidence for diastolic dysfunction. Ordering Physician: Quoc Stanford Referring Physician: Yon Anton MD Performed By: Rhonda Olsen RDCS
--- NOTE | 2020-11-08 12:00 | STRESSREP ---
Stress Test Report Date: 11-08-2020 Procedure: Pharmacologic stress nuclear imaging study Indications: Shortness of breath/dyspnea on exertion Consent: Per the patient Procedure: The patient underwent pharmacologic (Regadenoson 0.4mg ) evaluation with a peak heart rate of 110 beats per minute (70%predicted maximal heart rate) and a peak blood pressure of 160/90 mmHg. The baseline ECG demonstrated normal sinus rhythm. The peak pharmacologic ECG demonstrated no obvious ECG changes. There were no cardiac dysrhythmias pretest, during pharmacologic infusion, or recovery. The patient noted chest discomfort which was treated with supplemental oxygen and nitroglycerin sublingual x2 with subsequent resolution of symptoms and improvement in the patient's blood pressure. The examination was discontinued secondary to completion of protocol. Impression: 1. Pharmacologic (Regadenoson) evaluation 2. Peak pharmacologic ECG with no obvious ECG changes. 3. There were no cardiac dysrhythmias pretest, during pharmacologic infusion, or recovery. 4. Nuclear images pending Myocardial perfusion imaging study: Technique: The patient was injected with 11.1 millicuries of technetium 99m Cardiolite and subsequently rest SPECT Cardiolite nuclear imaging was obtained in the horizontal long, vertical long, and short axis views. The patient underwent pharmacologic (Regadenoson) evaluation with a peak heart rate of 110 beats per minute (70% percent predicted maximal heart rate) and a peak blood pressure of 160/90 mmHg. The patient was injected with 33.8 millicuries of technetium 99m Cardiolite and subsequently stress SPECT Cardiolite nuclear imaging was obtained in the horizontal long, vertical long, and short axis views. A gated Cardiolite study at peak stress was obtained. Interpretation: Rest and stress SPECT Cardiolite nuclear imaging status post realignment, normalization, and attenuation correction demonstrate relative uniform tracer uptake and myocardial perfusion appearing within normal limits. There is end systolic thickening and brightening. The gated Cardiolite study demonstrates myocardial thickening and inward wall motion. The reported LVEF is 80%. Impression: 1. Rest and stress SPECT Cardiolite nuclear imaging demonstrate relative uniform tracer uptake and myocardial perfusion appearing within normal limits. 2. The gated Cardiolite study reports an LVEF of 80%. This note was generated with [employer] software. It may contain incorrect words, spelling, and punctuation that were not noted in checking the note before signing.
== END ==
LOC: CVS 07:18
PROVIDERS: PCP Family Medicine; Referring Provider Internal Medicine Cardiovascular Disease; Visit Provider Internal Medicine Cardiovascular Disease
DX: R06.00 Dyspnea, unspecified (principal); R06.02 Shortness of breath; I34.1 Nonrheumatic mitral (valve) prolapse; E78.2 Mixed hyperlipidemia; I10 Essential (primary) hypertension
CPT/HCPCS: 78452; 93017; 93306; A9500; Q9957; A4216; C8929; J2785

== ENCOUNTER → 2020-11-15 14:10 | Outpatient (CLI) | payer OTHER, SELFPAY ==
[2020-10-25 14:10] VITALS: BMI 31.2
--- NOTE | 2020-11-15 14:16 | RAD_ITS ---
STUDY: X-RAY - LEFT WRIST REASON FOR EXAM: Female, 65 years old. PARESTHESIA OF ARM TECHNIQUE: 3 view(s) of the wrist were obtained. COMPARISON: None. FINDINGS: Normal visualized distal radius and ulna. Normal radiocarpal articulation. Normal distal radioulnar articulation. Normal carpal bones. Normal carpal articulations. Normal carpometacarpal articulation of the thumb. Normal second through fifth carpometacarpal articulations. Normal visualized metacarpal bones. The soft tissue structures are unremarkable. RAD/Wrist min 3 Views IMPRESSION: Normal x-ray examination of the wrist. Electronically Signed: Ej Brooks MD at 15:37 EST , Service support ,
== END ==
PROVIDERS: PCP Family Medicine; Referring Provider Family Medicine; Visit Provider Family Medicine
DX: R20.2 Paresthesia of skin (principal)
CPT/HCPCS: 73110

== ENCOUNTER 2020-11-29 13:28 | Outpatient (RCR) | payer OTHER, MEDICARE, SELFPAY ==
[2020-10-25 14:10] VITALS: BMI 31.2
[2020-11-29] MEDS: COVID-19 VACC, MRNA(PFIZER)/PF 30 MCG/0.3 ML SYRINGE IM (11:58)
[2020-12-20] MEDS: COVID-19 VACC, MRNA(PFIZER)/PF 30 MCG/0.3 ML SYRINGE IM (11:37)
== END 2020-11-29 23:59 ==
LOC: IMMUN 13:28
PROVIDERS: PCP Family Medicine; Visit Provider Family Medicine
DX: Z23 Encounter for immunization (principal)
CPT/HCPCS: 0001A; 0002A; 91300

== ENCOUNTER 2021-01-09 15:00 | Outpatient (RCR) | payer MEDICARE, OTHER, SELFPAY ==
[2020-10-25 14:10] VITALS: BMI 31.2
--- NOTE | 2020-12-17 16:38 | HP.OTEVAL_ITS ---
Patient's Visit Information STEVE LONG is a 65 year old F, referred to Occupational Therapy by Francisco Javier Nguyen PA-C, with a diagnosis of Radial Styloid Tenosynovitis. Date of Evaluation: 12/17/20 Occupational Therapist: Jaye Coronado - Subjective Pt reports that she's been having pain for about 3 months; it hurts from thumb to forearm; She went to her primary doctor in October, then ortho ~3 weeks ago who referred her to OT- they had wanted to give an injection of steroids but d/t allergies, they decided to go with prefabricated splint and OT before exploring surgical options. Nothing has been helping to take away pain/redness; has tried using ice packs about 1x/day about 20 minutes. Wears ortho splint at night and part of the day; Admits to continued used of hand while in splint. Patient is R hand dominant - ADLs Dressing: Bra, Button shirt, Pants Comments: difficulty w/ FM and pulling aspects Kitchen: Chop with knife, Open jars, Open bottle caps, Take dish out of oven Household: Vacuum, Laundry Comments: pushing/pulling/carrying/strength/pinching/fine motor deficits reported; frequently has assist w/ these items - Pain Right Wrist 6 - Objective Pt has slight redness on radial side of wrist; pt states the redness has started a couple of weeks ago. 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 Goal:: Pt will improve opposition of thumb to a score of 9 for more functional use of L hand. Goal:: Pt will decrease pain to no more than 2/10 during AROM and strenghtening exercises. Goal:: Pt will report improved fine motor skills and ability to raymond pants over hips and clasp bra with independence. Goal:: Pt will report independence w/ HEP - Rehabilitation General Assessment: Pt is demonstrating increased pain and decreased strength, mobility, ROM and functional use of L hand; pt would benefit from skilled services in order to address these deficits and implement/monitor HEP and splint use. Rehabilitation Potential: Excellent - Anticipated Interventions A/AAROM/PROM, Strengthening, Edema Control, Massage, Triggerpoint Release, Modalities, Orthoses, Joint Protection/Energy Conservation, Fine Motor Coord/Bridger, ADL Training, Education re assistive Equipment, Education re Self Massage Techniques, Home Program - Visit Plan Frequency: 1-2x /Week Duration: 2 Months General Plan: Pt to be seen 1-2/week for 6-8 weeks in order to assist w/ healing/ROM/strengthening and functional use of L hand as part of conservative management. TEXT: Thank you for the opportunity to evaluate your patient. For Medicare and Medicare HMO plans, please review the plan of care and approve it. It will need to be FAXED BACK to us at [phone] for Medicare purposes. Please let me know if there are questions or concerns regarding this plan of care. Physician Signature: Date:
--- NOTE | 2021-01-09 17:07 | OTREVAL_ITS ---
Francisco Javier Nguyen PA-C, It has been my pleasure to treat STEVE LONG over the last 6 visits for Radial Styloid Tenosynovitis. Please see the progress note below for an update on the occupational therapy plan of care! Subjective: pt arrives to session states she had to return using her left thumb spica. Objective/Function: left metal sander and finisher 10# initial 6#. left lateral pinch 10#. left tripod pinch 10#. pt has made gains with her strength but continues to have pain with use of left UE with ADls. therapy used orthosis- US and trigger point release with min. to no change in pain. pt would benefit from return to for further assessment Plan Visits in this POC: 16 Plan: Return to Goals - Goals Patient Goals: Regain Mobility, Regain Strength, Decrease Pain, Decrease Swelling/Stiffness, Improve Fine Motor Skills, Use Hand/Wrist/Arm Normally Again, Increase ROM, Be More Independent in ADLS, Resume Former Household Responsibilities (Cooking,Cleaning,Yard, etc.) Goal:: Pt will improve L metal sander and finisher strength to 17lbs in order to complete daily tasks more easily and independently. Goal:: Pt will improve opposition of thumb to a score of 9 for more functional use of L hand. Goal:: Pt will decrease pain to no more than 2/10 during AROM and strenghtening exercises. Goal:: Pt will report improved fine motor skills and ability to raymond pants over hips and clasp bra with independence. Goal:: Pt will report independence w/ HEP Anticipated Interventions Anticipated Interventions: A/AAROM/PROM, Strengthening, Edema Control, Massage, Triggerpoint Release, Modalities, Orthoses, Joint Protection/Energy Conservation, Fine Motor Coord/Bridger, ADL Training, Education re assistive Equipment, Education re Self Massage Techniques, Home Program Please do not hesitate to contact me at [phone] by phone or if you have questions or concerns regarding this new plan of care! Sincerely, Kirsten Hurley, SAMANTHAR/L, CHT
== END 2021-01-09 19:00 | disposition home or self-care (01) ==
LOC: OT 15:00
PROVIDERS: PCP Family Medicine; Referring Provider Physician Assistant Surgical; Visit Provider Physician Assistant Surgical
DX: M65.4 Radial styloid tenosynovitis [de Quervain] (principal)
CPT/HCPCS: 97035; 97140; 97165; 97530; 97760

== ENCOUNTER → 2021-01-22 10:03 | Outpatient (CLI) | payer MEDICARE, SELFPAY ==
[2021-01-17 13:33] VITALS: BMI 31.4
[2021-01-22 12:26] LABS: Absolute Lymphocyte Count 1.66 X10^3/uL (0.83-4.51); Absolute Neutrophil Count 3.4 X10^3/uL (2.0-7.7); Basophil# 0.06 X10^3/uL; Eosinophil# 0.29 X10^3/uL; Hemoglobin 13.6 g/dL (12.0-15.0); Lymphocyte # 1.66 X10^3/ul (0.83-4.51); Lymphocyte % 28.4 % (19-41); Mean Corp Hgb Conc 31.6 g/dL (32-36); Mean Corpuscular Hgb 29.8 pg (27.0-32.0); Mean Corpuscular Volume 94.1 fL (81-99); Mean Platelet Vol. 9.7 fl (6.2-12.0); Monocyte# 0.39 X10^3/uL; Monocyte% 6.7 % (0-10); NRBC Flagged by Analyzer 0 % (0-5); Neutrophil # 3.42 X10^3/uL (2.7-7.7); Neutrophil % 58.6 % (47-70); Platelet Count 204 K/mm3 (150-450); RBC Distribution Width CV 12.9 % (11.6-14.6); RBC Distribution Width SD 44.2 fl (35.1-43.9); Red Blood Count 4.57 M/mm3 (4.2-5.4); White Blood Count 5.8 K/mm3 (4.4-11.0)
[2021-01-22 12:45] LABS: Vitamin B12 608 pg/mL (211-911)
[2021-01-22 12:47] LABS: ALB/GLOB Ratio 1.2 RATIO (0.9-2.4); AST(SGOT) 21 U/L (15-37); Alanine Aminotransfer ALT/SGPT 36 U/L (13-56); Albumin, Serum 3.8 g/dL (3.2-5.0); Alkaline Phosphatase 91 U/L (45-117); Anion Gap 5 (5-15); BUN 17 mg/dL (7-18); BUN/Creat Ratio 14.8 RATIO (10-20); Calcium,Total 9.3 mg/dL (8.5-10.1); Chloride 107 mmol/L (98-107); Creatinine, Serum 1.15 mg/dL (0.55-1.02); EST Glomerular Filtration Rate 50 mL/min (>60); Est Glom Filt Rate - Afr Amer 61 mL/min (>60); Ferritin 47 ng/mL (8-252); Globulin 3.2 g/dL (2.2-4.2); Glucose 212 mg/dL (74-106); Hemoglobin A1c 8.9 % (3.8-5.6); Potassium 4.3 mmol/L (3.5-5.1); Sodium Level 139 mmol/L (136-145)
== END ==
PROVIDERS: PCP Family Medicine; Referring Provider Family Medicine; Visit Provider Family Medicine
DX: E53.8 Deficiency of other specified B group vitamins (principal); E11.9 Type 2 diabetes mellitus without complications
CPT/HCPCS: 36415; 80053; 82607; 82728; 83036; 85025

== ENCOUNTER → 2021-06-28 12:21 | Outpatient (CLI) | payer MEDICARE, SELFPAY ==
--- NOTE | 2021-06-28 12:23 | EKG12_ITS ---
Test Reason : PREOP Blood Pressure : / mmHG Vent. Rate : 104 BPM Atrial Rate : 104 BPM P-R Int : 192 ms QRS Dur : 064 ms QT Int : 334 ms P-R-T Axes : 023 -76 011 degrees QTc Int : 439 ms Sinus tachycardia Left axis deviation Low voltage QRS Inferior infarct , age undetermined Anterolateral infarct , age undetermined Abnormal ECG Confirmed by MONICA MOJICA, TANIA ([id number]), avid editor JORDEN MEJIA ([id number]) on 07/02/2021 7:50:35 AM Referred By: CLAIRE Confirmed By:TANIA ANDERSON MD
[2021-06-28 13:23] LABS: Hematocrit 42.9 % (37-47); Hemoglobin 14.1 g/dL (12.0-15.0); Mean Corp Hgb Conc 32.9 g/dL (32-36); Mean Corpuscular Hgb 30.7 pg (27.0-32.0); Mean Corpuscular Volume 93.3 fL (81-99); Mean Platelet Vol. 9.6 fl (6.2-12.0); Platelet Count 209 K/mm3 (150-450); RBC Distribution Width CV 12.4 % (11.6-14.6); RBC Distribution Width SD 42.7 fl (35.1-43.9); White Blood Count 8.6 K/mm3 (4.4-11.0)
[2021-06-28 13:46] LABS: Hemoglobin A1c 7.1 % (3.8-5.6)
[2021-06-28 13:48] LABS: Anion Gap 9 (5-15); BUN 18 mg/dL (7-18); BUN/Creat Ratio 13.4 RATIO (10-20); Calcium,Total 9.1 mg/dL (8.5-10.1); Chloride 106 mmol/L (98-107); Creatinine, Serum 1.34 mg/dL (0.55-1.02); EST Glomerular Filtration Rate 42 mL/min (>60); Est Glom Filt Rate - Afr Amer 51 mL/min (>60); Glucose 319 mg/dL (74-106); Potassium 3.9 mmol/L (3.5-5.1); Sodium Level 137 mmol/L (136-145)
== END ==
PROVIDERS: PCP Family Medicine; Visit Provider Physician Assistant
DX: Z01.818 Encounter for other preprocedural examination (principal)
CPT/HCPCS: 36415; 80048; 83036; 85027; 93005

== ENCOUNTER → 2021-07-01 10:21 | Outpatient (CLI) | payer MEDICARE, SELFPAY ==
[2021-07-01 12:17] LABS: Absolute Lymphocyte Count 1.78 X10^3/uL (0.83-4.51); Absolute Neutrophil Count 3.3 X10^3/uL (2.0-7.7); Basophil# 0.06 X10^3/uL; Eosinophil# 0.36 X10^3/uL; Eosinophils% 6.1 % (0-5); Hematocrit 42.5 % (37-47); Hemoglobin 13.9 g/dL (12.0-15.0); Lymphocyte # 1.78 X10^3/ul (0.83-4.51); Lymphocyte % 30.3 % (19-41); Mean Corp Hgb Conc 32.7 g/dL (32-36); Mean Corpuscular Hgb 31.2 pg (27.0-32.0); Mean Corpuscular Volume 95.3 fL (81-99); Mean Platelet Vol. 9.4 fl (6.2-12.0); Monocyte# 0.38 X10^3/uL; Monocyte% 6.5 % (0-10); NRBC Flagged by Analyzer 0 % (0-5); Neutrophil # 3.28 X10^3/uL (2.7-7.7); Neutrophil % 55.8 % (47-70); Platelet Count 193 K/mm3 (150-450); RBC Distribution Width CV 12.6 % (11.6-14.6); RBC Distribution Width SD 44.4 fl (35.1-43.9); Red Blood Count 4.46 M/mm3 (4.2-5.4); White Blood Count 5.9 K/mm3 (4.4-11.0)
[2021-07-01 12:43] LABS: Vitamin B12 514 pg/mL (211-911)
[2021-07-01 13:17] LABS: Hemoglobin A1c 6.9 % (3.8-5.6)
[2021-07-01 13:29] LABS: AST(SGOT) 31 U/L (15-37); Alanine Aminotransfer ALT/SGPT 47 U/L (13-56); Albumin, Serum 3.4 g/dL (3.2-5.0); Alkaline Phosphatase 69 U/L (45-117); Anion Gap 8 (5-15); BUN 14 mg/dL (7-18); BUN/Creat Ratio 11.5 RATIO (10-20); Calcium,Total 9.1 mg/dL (8.5-10.1); Chloride 107 mmol/L (98-107); Creatinine, Serum 1.22 mg/dL (0.55-1.02); EST Glomerular Filtration Rate 47 mL/min (>60); Est Glom Filt Rate - Afr Amer 57 mL/min (>60); Globulin 3.3 g/dL (2.2-4.2); Glucose 141 mg/dL (74-106); Potassium 4.4 mmol/L (3.5-5.1); Protein, Total 6.7 g/dL (6.4-8.2); Sodium Level 141 mmol/L (136-145)
== END ==
PROVIDERS: PCP Family Medicine; Visit Provider Family Medicine
DX: E11.9 Type 2 diabetes mellitus without complications (principal); E53.8 Deficiency of other specified B group vitamins
CPT/HCPCS: 36415; 80053; 82607; 82746; 83036; 85025

== ENCOUNTER 2021-07-21 18:38 | Emergency (ER) | payer MEDICARE, SELFPAY ==
[2021-07-21 18:39] VITALS: BP 182/93; PULSE 106; RESP 16; TEMP 36.4; O2SAT 99
--- NOTE | 2021-07-21 19:05 | ED.VIS.BACK ---
HPI History of Present Illness Chief Complaint: Back Informant: patient Onset/Context/Timing Onset: Days (4 days) Context: Gradual Onset Current Severity: Moderate Maximum Severity: Severe Narrative Narrative: Patient presents secondary to severe low back pain. She has had 3 prior back surgeries. She is scheduled to undergo right knee replacement tomorrow. She has noted over the last 4 days having increasing low back pain with some pain rating down her left leg. No problems of bowel or bladder control. No fall or trauma. [facility] Medical History Arthritis Asthma Breast cancer Breast cancer, left breast Essential hypertension GERD (gastroesophageal reflux disease) History of irregular heartbeat History of left heart catheterization (LHC) (~05/20/06) HTN (hypertension) Hyperlipemia IBS (irritable bowel syndrome) Mitral valve prolapse Mixed hyperlipidemia Osteoarthritis Pneumonia POTS (postural orthostatic tachycardia syndrome) Shortness of breath on exertion Sleep apnea Spinal cord stimulator dysfunction Suspected 2018 novel coronavirus infection Type 2 diabetes mellitus Wears contact lenses Wears glasses Home Medications calcium carbonate-vitamin D3 2 ea PO DAILY 11/08/19 [History Last Taken Unknown] montelukast [Singulair] 10 mg PO DAILY PRN 11/08/19 [History Last Taken Unknown] labetalol 200 mg PO BID 12/06/19 [History Last Taken Unknown] albuterol sulfate 90 mcg/actuation aerosol inhaler 2 puff INHALATION Q4H PRN g 10/23/20 [History Last Taken Unknown] doxepin 25 mg capsule 25 mg PO DAILY 10/23/20 [History Last Taken Unknown] duloxetine 60 mg capsule,delayed release 60 mg PO DAILY 10/23/20 [History Last Taken Unknown] epinephrine 0.3 mg/0.3 mL injection, auto-injector 0.3 mg IM Q5-15M PRN 10/23/20 [History Last Taken Unknown] multivitamin 1 tab PO DAILY 10/23/20 [History Last Taken Unknown] esomeprazole magnesium 20 mg tablet,delayed release 20 mg PO DAILY PRN 10/25/20 [History Last Taken Unknown] fluticasone propionate 250 mcg/actuation blister powder for inhalation 2 inh INHALATION BID 10/25/20 [History Last Taken Unknown] glimepiride 4 mg tablet 2 mg PO BID tab 10/25/20 [History Last Taken Unknown] insulin glargine 100 unit/mL (3 mL) subcutaneous pen 14 unit SC QPM ml 10/25/20 [History Last Taken Unknown] losartan 50 mg tablet 50 mg PO DAILY 10/25/20 [History Last Taken Unknown] tamoxifen 20 mg tablet 20 mg PO DAILY 10/25/20 [History Last Taken Unknown] albuterol sulfate 0.63 mg INHALATION BID 07/17/21 [History Last Taken Unknown] canagliflozin [Invokana] 300 mg PO DAILY 07/17/21 [History Last Taken Unknown] semaglutide [Ozempic] 0.25 mg SUBCUT QWEEK 07/17/21 [History Last Taken Unknown] Allergy/AdvReac Type Severity Reaction Status Date / Time hydrochlorothiazide Allergy Rash Verified 07/21/21 18:40 [From Zestoretic] lisinopril [From Zestoretic] Allergy Rash Verified 07/21/21 18:40 metformin Allergy Rash Verified 07/21/21 18:40 morphine Allergy Rash Verified 07/21/21 18:40 STERIODS Allergy Rash Uncoded 07/21/21 18:40 Family History Father Hypertension Mother Hypertension Surgical History History of appendectomy History of back surgery History of foot surgery History of total hysterectomy with bilateral salpingo-oophorectomy (BSO) Social History Smoking Status: Never smoker alcohol intake: current details: occasional substance use type: does not use caffeine: Yes Type: coffee Number of servings: 1 ROS ROS ED Constitutional Constitutional ED: Denies chills or fever(s) Eyes Eyes: Denies change in vision ENT ENT ED: Denies sore throat Cardiovascular Cardiovascular: Denies chest pain Respiratory/Chest Respiratory/Chest: Denies cough or dyspnea Gastrointestinal Gastrointestinal: Denies abdominal pain, diarrhea, nausea or vomiting Genitourinary Genitourinary ED: Denies dysuria Musculoskeletal Musculoskeletal: Reports back pain Integumentary Denies rash Neurologic Neurologic: Denies headache(s) or weakness Allergic/Immunologic Allergic/Immunologic ED: Denies urticaria EXAM Physical Exam Const Vital Signs: 07/21/21 18:39 Temperature 97.6 F L Temperature Source Temporal Pulse Rate 106 H Respiratory Rate 16 Blood Pressure 182/93 H Blood Pressure Mean 122 Pulse Ox 99 Positive well nourished and well developed General Appearance ED: well developed Eyes EOMs intact bilaterally Neck supple Resp normal respiratory effort and clear to auscultation bilaterally Cardio regular rate and regular rhythm GI normal to inspection, nondistended, normoactive bowel sounds, soft to palpation and non-tender Back/Spine Back/Spine Narrative: Reproducible tenderness in the left low lumbar paraspinal muscles and over the left sciatic notch. No erythema or rash. Neuro oriented x3 Neuro Narrative: Good strength noted in the lower extremities. Sensorium / Orientation: alert Psych mental status grossly normal Skin no rashes or lesions noted MDM MDM MDM Narrative Medical decision making narrative: Patient was given 1 mg of IM Dilaudid, ODT Zofran, Lidoderm patch. Treatment and Re-Evaluation Comments:: On repeat evaluation she did note some improvement in her pain. She still had significant sharp pain when moving. She was given an additional 0.5 mg of IM Dilaudid. At this time patient is stiff but I did assist her in sitting to the side of the bed. She is to be back at the hospital at 6 AM tomorrow morning for surgery. I believe her back pain is secondary to spasm from her altered gait. Once her knee surgery is complete she can begin physical therapy which will help her knee, gait, and her back. Discharge Plan Triage Chief Complaint: Back ED Provider: Marlen Jacob Dx/Rx/DC Orders Clinical Impression: Back pain Instructions: ED Back and Neck Pain, General Prescriptions: No Action tamoxifen 20 mg tablet 20 mg PO DAILY RF: 0 Flovent Diskus 250 mcg/actuation blister with device 2 inh INHALATION BID RF: 0 losartan 50 mg tablet 50 mg PO DAILY RF: 0 Nexium 24HR 20 mg tablet,delayed release (DR/EC) 20 mg PO DAILY PRN (Reason: refulx) RF: 0 epinephrine 0.3 mg/0.3 mL auto-injector 0.3 mg IM Q5-15M PRN (Reason: anaphylaxsis) RF: 0 albuterol sulfate [Ventolin HFA] 90 mcg/actuation HFA aerosol inhaler 2 puff INHALATION Q4H PRN (Reason: Wheezing) RF: 0 duloxetine [Cymbalta] 60 mg capsule,delayed release(DR/EC) 60 mg PO DAILY RF: 0 doxepin 25 mg capsule 25 mg PO DAILY RF: 0 multivitamin Tablet 1 tab PO DAILY RF: 0 Lantus Solostar U-100 Insulin 100 unit/mL (3 mL) insulin pen 14 unit SC QPM RF: 0 montelukast [Singulair] 10 MG tablet 10 mg PO DAILY PRN (Reason: Allergies) RF: 0 calcium carbonate-vitamin D3 1 EACH tablet,chewable 2 ea PO DAILY RF: 0 glimepiride 4 mg tablet 2 mg PO BID RF: 0 labetalol 200 MG tablet 200 mg PO BID RF: 0 albuterol sulfate 0.63 mg/3 mL Solution For Nebulization 0.63 mg INHALATION BID RF: 0 Invokana 300 mg tablet 300 mg PO DAILY RF: 0 Ozempic 0.25 mg or 0.5 mg(2 mg/1.5 mL) pen injector 0.25 mg SUBCUT QWEEK RF: 0 Primary Care Provider: Yon Anton Referrals: Yon Anton MD [Primary Care Provider] - Shane Sotomayor DO [STAFF PHYSICIAN] - Disposition Disposition: Home, Self Care
[2021-07-21] MEDS: Ondansetron ODT 4 MG Tablet PO (19:13)
[2021-07-21] MEDS: Lidocaine 5% Patch 1 PATCH TOPICAL (19:13)
[2021-07-21] MEDS: HYDROmorphone 1 MG/ML Syringe IM (19:13)
[2021-07-21] MEDS: HYDROmorphone 0.5 MG/0.5 ML SYRINGE IM (20:49)
== END 2021-07-21 21:36 | disposition home or self-care (01) ==
PROVIDERS: Emergency Provider Emergency Medicine; PCP Family Medicine
DX: M54.50 Low back pain, unspecified (principal); M19.90 Unspecified osteoarthritis, unspecified site; J45.909 Unspecified asthma, uncomplicated; I10 Essential (primary) hypertension; K21.9 Gastro-esophageal reflux disease without esophagitis; E78.2 Mixed hyperlipidemia; E11.9 Type 2 diabetes mellitus without complications; Z79.4 Long term (current) use of insulin; Z79.51 Long term (current) use of inhaled steroids; Z79.899 Other long term (current) drug therapy
CPT/HCPCS: 96372; 99282

== ENCOUNTER 2021-07-22 06:00 | Day surgery (SDC) | payer MEDICARE, SELFPAY ==
[2021-07-22] VITALS (9 sets, daily range): BP systolic 117–169; BP diastolic 61–90; PULSE 88–95; RESP 16–18; TEMP 36–36.9; O2SAT 91–98; BMI 31.0
[2021-07-22 07:21] LABS: Bedside Glucose 207 mg/dL (70-110)
[2021-07-22] MEDS: Cefazolin 2 GM in 0.9% Normal Saline 100 ML IV (07:26)
[2021-07-22] MEDS: Lactated Ringers 1,000 ML 100 ML IV (07:27)
[2021-07-22] MEDS: Epinephrine (1 mg/ml) 1 MG/ML VIAL (08:22)
[2021-07-22] MEDS: Bupivacaine Mpf 0.5% 30 ML VIAL (08:24)
[2021-07-22 09:06] LABS: Bedside Glucose 144 mg/dL (70-110)
--- NOTE | 2021-07-22 09:23 | SUR.PHASEI ---
Addendum entered by Ashley Mcgee RN 07/22/21 09:24: Left MUSTAPHA Original Note: Patient VSS in PACU. Patient noted numbness in right hand; likely from infiltration of IV per anesthesia. Educated patient on infiltration. IV in right EJ patent.
[2021-07-22] MEDS: HYDROcodone Bitartrate/Apap 5/325 Tablet PO (10:19)
--- NOTE | 2021-07-22 11:42 | OP.PCM_ITS ---
Report of Operation Date of Procedure: 07/22/21 Pre-Operative Diagnosis: Internal derangement right knee Post-Operative Diagnosis: MMT, LMT, Grade 2 and 3 chondromalacia [facility] [place]/Procedure Performed:: Arthroscopic partial medial and lateral meniscectomies with chondroplasty medial femoral condyle right Description of Surgical Findings:: Report of Operation Date of Procedure: 07/22/21 Preoperative Diagnosis: Right knee, internal derangement Postoperative Diagnosis: Right knee medial meniscus tear, lateral meniscus tear and Grade 3 chondromalacia of the medial femoral condyle Operation: Diagnostic and operative arthroscopy of the right knee with arthroscopic partial medial and lateral meniscectomies and chondroplasty of the MFC Surgeon: Dr Shane Sotomayor DO Anesthesia: general Anesthesiologist: Yon Allen M.D. Description of Procedure: With appropriate informed consent, the patient was taken to the operative suite. After induction of general and regional anesthesia and administration of the preoperative antibiotics, the well leg was fitted with IZA and SCDs and well padded. The right knee was placed into the arthroscopy leg meade, prepped and draped sterilely. The standard arthroscopy portals were pre-injected with 0.5% Marcaine with epinephrine. A lateral portal was established. The diagnostic arthroscopy was begun. The patellofemoral joint revealed no significant surface cartilage pathology The medial compartment was entered and the medial portal was established. A probe was utilized to probe the medial meniscus. There was a small inner 1/3 MMT and diffuse grade 2 and grade 3 chondromalacia of the MFC ACL and PCL were probed and intact. The lateral compartment was entered. There was a small inner 1/3 LMT Subsequently, a partial [medial and lateral ] meniscectomy was performed using a combination of straight and angled basket punches. The meniscotome was then utilized to remove the fragments of cartilage and then to smooth the remainder of the meniscus to a firm and stable rim. A shaver was used to perform a chondroplasty on the [ [facility] [place] to smooth the roughened surface cartilage and remove any delaminated cartilage. Thereafter, the arthroscopy instruments and fluid were removed. The portals were closed with interrupted sutures of 4-0 nylon followed by application of a sterile well-padded dressing and JAGJIT wrap. The patient was extubated and transferred to the PACU in stable and satisfactory condition. Shane Sotomayor DO Surgeon: Shane Sotomayor Type of Anesthesia: General Anesthesiologist: Yon Allen Admit VTE Documentation VTE Present on Admission: No VTE Mechan Device Prophylaxis: SCD's and Thigh High IZA Hose VTE Pharm Prophylaxis ordered?: No Reason prophylaxis not ordered:: Treatment Not Indicated
== END 2021-07-22 12:35 | disposition home or self-care (01) ==
LOC: SDC 06:02 → AC 06:02
PROVIDERS: PCP Family Medicine; Referring Provider Orthopaedic Surgery; Visit Provider Orthopaedic Surgery
PROC: (CPT 29870; principal; 2021-07-22 07:10)
DX: M94.261 Chondromalacia, right knee (principal); S83.241A Other tear of medial meniscus, current injury, right knee, initial encounter; S83.281A Other tear of lateral meniscus, current injury, right knee, initial encounter; J45.909 Unspecified asthma, uncomplicated; F32.A Depression, unspecified; E11.9 Type 2 diabetes mellitus without complications; I10 Essential (primary) hypertension; K21.9 Gastro-esophageal reflux disease without esophagitis; E78.00 Pure hypercholesterolemia, unspecified; Z79.4 Long term (current) use of insulin; Z79.899 Other long term (current) drug therapy; Z79.51 Long term (current) use of inhaled steroids; X58.XXXA Exposure to other specified factors, initial encounter; Y93.89 Activity, other specified; Y92.89 Other specified places as the place of occurrence of the external cause; Y99.8 Other external cause status
CPT/HCPCS: 29880; 82962; J7120; J2405

== ENCOUNTER → 2021-11-11 | Outpatient (CLI) | payer MEDICARE, SELFPAY ==
[2021-11-11 12:16] LABS: Absolute Neutrophil Count 3.6 X10^3/uL (2.0-7.7); Basophil# 0.06 X10^3/uL; Basophil% 0.9 % (0-1); Eosinophil# 0.16 X10^3/uL; Eosinophils% 2.5 % (0-5); Hematocrit 45.1 % (37-47); Hemoglobin 15.1 g/dL (12.0-15.0); Mean Corp Hgb Conc 33.5 g/dL (32-36); Mean Corpuscular Volume 95.6 fL (81-99); Mean Platelet Vol. 9.5 fl (6.2-12.0); Monocyte% 6.2 % (0-10); NRBC Flagged by Analyzer 0 % (0-5); Neutrophil # 3.63 X10^3/uL (2.7-7.7); Neutrophil % 55.9 % (47-70); Platelet Count 219 K/mm3 (150-450); RBC Distribution Width CV 12.7 % (11.6-14.6); RBC Distribution Width SD 44.9 fl (35.1-43.9); Red Blood Count 4.72 M/mm3 (4.2-5.4); White Blood Count 6.5 K/mm3 (4.4-11.0)
[2021-11-11 12:52] LABS: Vitamin B12 464 pg/mL (211-911)
[2021-11-11 13:08] LABS: ALB/GLOB Ratio 1.2 RATIO (0.9-2.4); AST(SGOT) 25 U/L (15-37); Alanine Aminotransfer ALT/SGPT 39 U/L (13-56); Albumin, Serum 3.7 g/dL (3.2-5.0); Alkaline Phosphatase 69 U/L (45-117); Anion Gap 6 (5-15); BUN 20 mg/dL (7-18); BUN/Creat Ratio 16.8 RATIO (10-20); Calcium,Total 9.5 mg/dL (8.5-10.1); Chloride 109 mmol/L (98-107); Creatinine, Serum 1.19 mg/dL (0.55-1.02); EST Glomerular Filtration Rate 48 mL/min (>60); Est Glom Filt Rate - Afr Amer 58 mL/min (>60); Globulin 3.2 g/dL (2.2-4.2); Glucose 149 mg/dL (74-106); Potassium 4.3 mmol/L (3.5-5.1); Protein, Total 6.9 g/dL (6.4-8.2); Sodium Level 140 mmol/L (136-145)
[2021-11-11 13:30] LABS: Hemoglobin A1c 7.2 % (3.8-5.6)
== END | disposition home or self-care (01) ==
LOC: MFPLAB 10:24
PROVIDERS: PCP Family Medicine; Referring Provider Family Medicine; Visit Provider Family Medicine
DX: E11.22 Type 2 diabetes mellitus with diabetic chronic kidney disease (principal)
CPT/HCPCS: 36415; 80053; 82607; 82746; 83036; 85025

== ENCOUNTER 2022-02-04 15:50 | Outpatient (CLI) | payer MEDICARE, SELFPAY | END 2022-02-04 23:59 | disposition home or self-care (01) | PROVIDERS: PCP Family Medicine; Visit Provider Student in an Organized Health Care Education/Training Program | DX: N76.1 Subacute and chronic vaginitis (principal) ==

== ENCOUNTER → 2022-05-23 | Outpatient (CLI) | payer MEDICARE, SELFPAY | END | disposition home or self-care (01) | PROVIDERS: PCP Family Medicine; Visit Provider Student in an Organized Health Care Education/Training Program | DX: N76.0 Acute vaginitis (principal) ==

== ENCOUNTER 2022-06-25 15:42 | Outpatient (CLI) | payer MEDICARE, SELFPAY | END 2022-06-25 23:59 | disposition home or self-care (01) | PROVIDERS: PCP Family Medicine; Visit Provider Student in an Organized Health Care Education/Training Program | DX: N89.8 Other specified noninflammatory disorders of vagina (principal) ==

== ENCOUNTER → 2022-07-21 | Outpatient (CLI) | payer MEDICARE, SELFPAY ==
[2022-07-21 12:21] LABS: Absolute Lymphocyte Count 1.89 X10^3/uL (0.83-4.51); Absolute Neutrophil Count 2.3 X10^3/uL (2.0-7.7); Basophil# 0.07 X10^3/uL; Basophil% 1.5 % (0-1); Eosinophil# 0.14 X10^3/uL; Eosinophils% 2.9 % (0-5); Hematocrit 43.2 % (37-47); Hemoglobin 14.6 g/dL (12.0-15.0); Lymphocyte # 1.89 X10^3/ul (0.83-4.51); Lymphocyte % 39.3 % (19-41); Mean Corp Hgb Conc 33.8 g/dL (32-36); Mean Corpuscular Hgb 32.6 pg (27.0-32.0); Mean Corpuscular Volume 96.4 fL (81-99); Mean Platelet Vol. 9.6 fl (6.2-12.0); Monocyte# 0.39 X10^3/uL; Monocyte% 8.1 % (0-10); NRBC Flagged by Analyzer 0 % (0-5); Neutrophil % 47.8 % (47-70); Platelet Count 199 K/mm3 (150-450); RBC Distribution Width CV 12.5 % (11.6-14.6); RBC Distribution Width SD 44.6 fl (35.1-43.9); Red Blood Count 4.48 M/mm3 (4.2-5.4); White Blood Count 4.8 K/mm3 (4.4-11.0)
[2022-07-21 12:54] LABS: Hemoglobin A1c 6.7 % (3.8-5.6)
[2022-07-21 13:07] LABS: Microalbumin,Random Urine 7.2 mg/L (NO RANGE EST.); Microalbumin:Creatinine Ratio 6.3 mg/g CRE (<30 mg/g CRE)
[2022-07-21 13:20] LABS: ALB/GLOB Ratio 1.2 RATIO (0.9-2.4); AST(SGOT) 28 U/L (15-37); Alanine Aminotransfer ALT/SGPT 43 U/L (13-56); Albumin, Serum 3.7 g/dL (3.2-5.0); Alkaline Phosphatase 72 U/L (45-117); Anion Gap 8 (5-15); BUN 16 mg/dL (7-18); BUN/Creat Ratio 14.8 RATIO (10-20); Chloride 107 mmol/L (98-107); Creatinine, Serum 1.08 mg/dL (0.55-1.02); EST Glomerular Filtration Rate 54 mL/min (>60); Est Glom Filt Rate - Afr Amer 65 mL/min (>60); Globulin 3.2 g/dL (2.2-4.2); Glucose 98 mg/dL (74-106); Protein, Total 6.9 g/dL (6.4-8.2); Sodium Level 141 mmol/L (136-145); Thyroid Stim Hormone (TSH) 1.64 uIU/mL (0.358-3.74)
== END | disposition home or self-care (01) ==
PROVIDERS: PCP Family Medicine; Visit Provider Family Medicine
DX: E11.22 Type 2 diabetes mellitus with diabetic chronic kidney disease (principal)
CPT/HCPCS: 36415; 80053; 82043; 82570; 83036; 84443; 85025

== ENCOUNTER 2022-09-22 05:45 | Inpatient (IN) | payer MEDICARE, SELFPAY ==
[2022-09-22] VITALS (24 sets, daily range): BP systolic 108–209; BP diastolic 53–98; PULSE 100–139; RESP 16–29; TEMP 35.7–36.8; O2SAT 91–99; BMI 27.9; BMI 28.5
--- NOTE | 2022-09-22 05:54 | RAD_ITS ---
INDICATION: cough, left chest pain, shortness of breath EXAMINATION/TECHNIQUE: X-RAY - XR Chest 2 Views COMPARISON: January 16, 2020 FINDINGS: LINES/DEVICES: None. LUNGS: No consolidation, edema or effusion. No pneumothorax. MEDIASTINUM AND CARDIOVASCULAR STRUCTURES: Cardiac silhouette not enlarged. Central airways and mediastinal contour are unremarkable. BONES AND SOFT TISSUES: There are degenerative changes of the thoracic spine. RAD/Chest PA and Lateral IMPRESSION: No radiographic evidence of acute cardiopulmonary disease. Electronically Signed: Donna Peterson MD at 8:04 EST ,
--- NOTE | 2022-09-22 05:54 | EKG12_ITS ---
Test Reason : N/V Blood Pressure : / mmHG Vent. Rate : 122 BPM Atrial Rate : 122 BPM P-R Int : 162 ms QRS Dur : 072 ms QT Int : 308 ms P-R-T Axes : 056 -69 049 degrees QTc Int : 438 ms Sinus tachycardia Left axis deviation Low voltage QRS Inferior infarct , age undetermined Cannot rule out Anterior infarct , age undetermined Abnormal ECG Confirmed by SHERLY MOJICA, CHRIST ([id number]), editor map JORDEN MEJIA ([id number]) on 09/24/2022 10:35:30 AM Referred By: Confirmed By:CHRIST DUBOIS MD
--- NOTE | 2022-09-22 05:54 | CT_ITS ---
EXAM: CT ABDOMEN AND PELVIS WITH INTRAVENOUS CONTRAST CLINICAL INDICATION: lower abd pain, vomiting TECHNIQUE: Helically acquired images were obtained of the abdomen and pelvis with intravenous contrast. This CT exam was performed using one or more of the following dose reduction techniques: automated exposure control, adjustment of the mA and/or kV according to patient size, and/or use of iterative reconstruction technique. This report was created using [employer] report generation technology. RADIATION DOSE: CTDIvol = 23.67 mGy, DLP = 914.31 mGy-cmContrast: IV 100mL Isovue-300 COMPARISON: Prior chest CT and CTA, no prior abdomen and pelvis provided. FINDINGS: LOWER THORAX: Slight hiatal hernia. Mild calcifications or stents suspected and coronary artery disease, heart is not fully included. No oral or rectal contrast is present. Slight hiatal hernia. Mild fluid and gas in the stomach. No dilated small bowel. Most of the colon is collapsed, minimal sigmoid diverticulosis, minimal stool in the rectum. Mild mucosal enhancement of the stomach, nonspecific. Lung bases are clear. No significant pericardial effusion. ABDOMEN: LIVER: Low-attenuation fatty-appearing liver, the right lobe is 13.9 cm craniocaudal, suspicion of subtle hypodensity in the right lobe, indeterminate, about 1.2 cm, not included on prior exams. GALLBLADDER AND BILE DUCTS: Unremarkable. No calcified gallstones. No gallbladder distention or wall edema. No intra- or extrahepatic biliary ductal dilation. PANCREAS: Unremarkable. No focal cystic or solid mass. SPLEEN: Unremarkable. Normal size without focal cystic or solid mass. ADRENALS: Unremarkable. No nodules. KIDNEYS AND URETERS: Unremarkable. Normal renal size and position. No hydronephrosis. STOMACH AND BOWEL: See above. PELVIS: APPENDIX: Nonvisualized appendix. BLADDER: Unremarkable. REPRODUCTIVE: Unremarkable as visualized. No mass. ABDOMEN and PELVIS: INTRAPERITONEAL SPACE: Unremarkable. No ascites or other fluid collection. No free air. BONES/JOINTS: Postoperative changes with resection of posterior elements at L3-4. Marked L3-L4 disc space narrowing and uncovertebral osteophytes. No suspicious lytic or blastic abnormality. SOFT TISSUES: Unremarkable. No discrete abdominal or pelvic wall hernia. VASCULATURE: Atherosclerotic changes of aortoiliac vessels. 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 Abdominal aorta is non-dilated. LYMPH NODES: Unremarkable. No enlarged lymph nodes. OTHER FINDINGS: History to tn. CT/Abdomen/Pelvis W IV Cont ONLY IMPRESSION: 1. Nonspecific findings. 2. Hysterectomy. Nonvisualized appendix. 3. Collapsed lung segments of small bowel and colon, and mild mucosal enhancement in the stomach. Cannot exclude gastroenteritis-enterocolitis in the appropriate clinical setting. 4. Minimal sigmoid diverticulosis. 5. Slight hiatal hernia. 6. Slight fat-containing proximal right inguinal hernia. 7. Fatty liver. Small hypodense question cyst in the liver, too small to characterize. 8. Postoperative spine changes. Electronically Signed: Adri Shepherd MD at 8:01 EST ,
--- NOTE | 2022-09-22 05:56 | ED.VIS.GI ---
HPI <Dr. Lee Yoo MD - Last Filed: 09/22/22 07:06> HPI - GI History of Present Illness Chief Complaint: Nausea/Vomiting Informant: patient and spouse/S.O. Abdominal Pain/Flank Pain Onset: Days (5) Context: Gradual Onset Timing: Continuous Quality: Aching Location: - (throughout lower abd) Current Severity: Moderate Maximum Severity: Severe Worsened by: - (vomiting) Relieved by: Nothing Nausea/Vomiting/Emesis GI Symptom: Positive for Nausea and Vomiting Onset: Days (5) Quality: Positive for Nonbilious; Negative for Blood streaks, Coffee ground or Hematemesis Severity: Moderate Diarrhea/Melena/Hematochezia GI Symptom: Negative for Diarrhea, Melena or Hematochezia Associated Symptoms Associated Symptoms: Positive for - (decreased UOP due to decreased oral intake); Negative for Dysuria, Frequency, Hematuria or Urgency Narrative Narrative: Patient presents after having had abdominal pain, vomiting, left lower chest discomfort, as well as a nonproductive cough for the past 5 days or so. No fevers or chills. No known contact with COVID or influenza or anyone else that is ill that she knows of. She has had prior appendectomy and complete hysterectomy. The pain has been across her lower abdomen more prominent on the right side. She is not eating, and barely drinking any fluids due to the vomiting, for the past 5 days. Her urine output is decreased. She has not been able to take her medications because of her nausea and vomiting, which include her diabetes medications. The pain in her left lower chest is nonpleuritic, she cannot tell if it is due to all of the vomiting and is muscular or something inside. <Dr. Benito Walters DO - Last Filed: 09/22/22 15:30> HPI - GI Narrative Narrative: Patient presents after having had abdominal pain, vomiting, left lower chest discomfort, as well as a nonproductive cough for the past 5 days or so. No fevers or chills. No known contact with COVID or influenza or anyone else that is ill that she knows of. She has had prior appendectomy and complete hysterectomy. The pain has been across her lower abdomen more prominent on the right side. She is not eating, and barely drinking any fluids due to the vomiting, for the past 5 days. Her urine output is decreased. She has not been able to take her medications because of her nausea and vomiting, which include her diabetes medications. The pain in her left lower chest is nonpleuritic, she cannot tell if it is due to all of the vomiting and is muscular or something inside. [facility] <Dr. Lee Yoo MD - Last Filed: 09/22/22 07:06> [facility] Medical History Arthritis Asthma Breast cancer Breast cancer, left breast Essential hypertension GERD (gastroesophageal reflux disease) History of irregular heartbeat History of left heart catheterization (LHC) (~05/20/06) HTN (hypertension) Hyperlipemia IBS (irritable bowel syndrome) Mitral valve prolapse Mixed hyperlipidemia Osteoarthritis Pneumonia POTS (postural orthostatic tachycardia syndrome) Shortness of breath on exertion Sleep apnea Spinal cord stimulator dysfunction Suspected 2019 novel coronavirus infection Type 2 diabetes mellitus Wears contact lenses Wears glasses Home Medications labetalol 200 mg tablet 200 mg PO BID BLOOD PRESSURE 12/06/19 [History Last Taken 09/17/22] albuterol sulfate 90 mcg/actuation aerosol inhaler (Ventolin HFA) 2 puff inhalation Q4H PRN Wheezing 10/23/20 [History Last Taken 06/24/22] doxepin 25 mg capsule 25 mg PO QHS DEPRESSION/ANXIETY 10/23/20 [History Last Taken 09/17/22] duloxetine 60 mg capsule,delayed release (Cymbalta) 60 mg PO DAILY DEPRESSION/ANXIETY 10/23/20 [History Last Taken 09/17/22] multivitamin 1 tab PO DAILY HEALTH MAINTENANCE 10/23/20 [History Last Taken 09/17/22] esomeprazole magnesium 20 mg tablet,delayed release (Nexium 24HR) 20 mg PO DAILY PRN Acid Reflux 10/25/20 [History Last Taken Unknown] fluticasone propionate 250 mcg/actuation blister powder for inhalation (Flovent Diskus) 2 inh inhalation BID ASTHMA 10/25/20 [History Last Taken 09/17/22] glimepiride 4 mg tablet 2 mg PO DAILY diabetes 10/25/20 [History Last Taken 09/17/22] insulin glargine 100 unit/mL (3 mL) subcutaneous pen (Lantus Solostar U-100 Insulin) 12 unit subcut QPM DIABETES 10/25/20 [History Last Taken 09/17/22] losartan 50 mg tablet 50 mg PO BID BLOOD PRESSURE 10/25/20 [History Last Taken 09/17/22] tamoxifen 20 mg tablet 20 mg PO DAILY BREAST CANCER 10/25/20 [History Last Taken 09/17/22] albuterol sulfate 0.63 mg/3 mL solution for nebulization 0.63 mg inhalation BID ASTHMA 07/17/21 [History Last Taken Unknown] semaglutide 0.25 mg or 0.5 mg (2 mg/1.5 mL) subcutaneous pen injector (Ozempic) 0.25 mg subcut SA DIABETES 07/17/21 [History Last Taken 09/13/22] clobetasol-emollient 0.05 % topical cream 1 applic topical BID AFFECTED AREA 09/22/22 [History Last Taken 09/17/22] empagliflozin 25 mg tablet (Jardiance) 25 mg PO DAILY DIABETES 09/22/22 [History Last Taken 09/17/22] Allergy/AdvReac Type Severity Reaction Status Date / Time hydrochlorothiazide Allergy Rash Verified 09/22/22 05:48 [From Zestoretic] lisinopril [From Zestoretic] Allergy Rash Verified 09/22/22 05:48 metformin Allergy Rash Verified 09/22/22 05:48 morphine Allergy Rash Verified 09/22/22 05:48 STERIODS Allergy Rash Uncoded 09/22/22 05:48 Family History Father Hypertension Mother Hypertension Surgical History History of appendectomy History of back surgery History of foot surgery History of total hysterectomy with bilateral salpingo-oophorectomy (BSO) Social History Smoking Status: Never smoker alcohol intake: current details: occasional substance use type: does not use caffeine: Yes Type: coffee Number of servings: 1 ROS <Dr. Lee Yoo MD - Last Filed: 09/22/22 07:06> ROS ED Constitutional Constitutional ED: Reports anorexia and malaise; Denies chills or fever(s) Eyes Eyes: Denies change in vision or diplopia ENT ENT ED: Denies rhinorrhea or sore throat Cardiovascular Cardiovascular: Reports chest pain; Denies palpitations Respiratory/Chest Respiratory/Chest: Reports cough and dyspnea Gastrointestinal Gastrointestinal: Reports abdominal pain, nausea and vomiting; Denies diarrhea, hematemesis, hematochezia or melena Genitourinary Genitourinary ED: Denies dysuria or hematuria Musculoskeletal Musculoskeletal: Denies back pain or neck pain Integumentary Denies abscess or rash Neurologic Neurologic: Denies headache(s), paresthesias or weakness Psychiatric Psychiatric: Denies anxiety or suicidal thoughts EXAM <Dr. Lee Yoo MD - Last Filed: 09/22/22 07:06> Physical Exam Const Vital Signs: 09/22/22 05:46 09/22/22 07:57 09/22/22 07:57 Temperature 96.3 F L Temperature Source Temporal Pulse Rate 131 H 128 H Respiratory Rate 20 H 20 H Blood Pressure 191/98 H 186/95 H Blood Pressure Mean 129 125 Pulse Ox 99 98 Oxygen Delivery Method Room Air Room Air Room Air 09/22/22 09:09 09/22/22 09:39 Temperature Temperature Source Pulse Rate 132 H Respiratory Rate Blood Pressure 202/88 H 209/98 H Blood Pressure Mean 126 135 Pulse Ox Oxygen Delivery Method Positive well nourished and well developed General Appearance ED: well developed and NAD HEENT Reports moist mucous membranes normocephalic and atraumatic Eyes PERRL and EOMs intact bilaterally Neck full ROM and supple Resp normal respiratory effort and clear to auscultation bilaterally Effort and Inspection: able to speak in complete sentences Cardio regular rate, regular rhythm and no murmurs Rate: tachycardic GI GI Narrative: Diffusely mildly tender, moderately tender throughout lower abdomen without guarding or rebound tenderness. No pulsatile mass palpable. Inspection: abdominal distention Auscultation: hypoactive bowel sounds Palpation: soft Back/Spine no CVA tenderness General Back: other FROM Extremity normal to inspection General Extremety ED: Negative for edema, pulses abnormal or tenderness General Extremity: Negative for edema or pulses abnormal Neuro oriented x3, CN's II-XII intact bilaterally and no sensory deficits noted Sensorium / Orientation: awake and alert Motor Exam: strength 5/5 throughout Skin no rashes or lesions noted and no wounds <Dr. Benito Walters DO - Last Filed: 09/22/22 15:30> Physical Exam Const Vital Signs: 09/22/22 05:46 09/22/22 07:57 09/22/22 07:57 Temperature 96.3 F L Temperature Source Temporal Pulse Rate 131 H 128 H Respiratory Rate 20 H 20 H Blood Pressure 191/98 H 186/95 H Blood Pressure Mean 129 125 Pulse Ox 99 98 Oxygen Delivery Method Room Air Room Air Room Air 09/22/22 09:09 09/22/22 09:39 Temperature Temperature Source Pulse Rate 132 H Respiratory Rate Blood Pressure 202/88 H 209/98 H Blood Pressure Mean 126 135 Pulse Ox Oxygen Delivery Method MDM <Dr. Lee Yoo MD - Last Filed: 09/22/22 07:06> [facility] Narrative Medical decision making narrative: Patient with lower abdominal pain and tenderness, a quiet abdomen, and having difficulty keeping fluids and food down. Primary concern would be something like a small bowel obstruction or volvulus, other considerations are cardiac related in a woman who has diabetes, and the abdominal discomfort could be related to the vomiting and she could have an ileus. Or, she could have a left lower lobe pneumonia although her lungs sound clear and she is not hypoxic, with resultant GI symptoms. For these reasons, labs, EKG, chest x-ray, CT of abdomen/pelvis are obtained. Patient is a significant leukocytosis with a leftward trend/shift. Given this and her vital signs, which may more likely be due to dehydration, the rest of the septic work-up is obtained. Patient turned over the morning physician at shift change. Lab Data Labs: Laboratory Results - last 24 hr 09/22/22 09/22/22 09/22/22 06:40 06:40 06:40 WBC 20.7 H RBC 5.33 Hgb 16.7 H Hct 51.5 H MCV 96.6 MCH 31.3 MCHC 32.4 RDW Std Deviation 45.1 H RDW Coeff of Hermilo 12.7 Plt Count 248 MPV 9.4 Immature Gran % (Auto) 0.700 Neut % (Auto) 91.5 H Lymph % (Auto) 5.1 L Frederick % (Auto) 2.4 Eos % (Auto) 0.0 Baso % (Auto) 0.3 Absolute Neuts (auto) 18.9 H Absolute Lymphs (auto) 1.05 Nucleated RBC % 0 Sodium 138 Potassium 4.3 Chloride 104 Carbon Dioxide 10.0 L Anion Gap 24 H BUN 23 H Creatinine 1.33 H Estim Creat Clear Calc 35.93 Est GFR (MDRD) Af Amer 51 L Est GFR (MDRD) Non-Af 42 L BUN/Creatinine Ratio 17.3 Glucose 225 H Serum Osmolality Lactic Acid Calcium 9.6 Total Bilirubin 0.80 AST 51 H ALT 89 H Alkaline Phosphatase 70 Troponin I High Sens 7 Total Protein 8.1 Albumin 4.2 Globulin 3.9 Albumin/Globulin Ratio 1.1 Lipase Urine Color Yellow Urine Clarity Sl. Cloudy Urine pH 6.0 Ur Specific Clifford 1.020 Urine Protein 15 H Urine Glucose (UA) 1000 H Urine Ketones 150 A* Urine Occult Blood 10 H Urine Nitrite Negative Urine Bilirubin Negative Urine Urobilinogen Normal Ur Leukocyte Esterase 25 H Urine RBC 0-5 SEEN Urine WBC 0-5 SEEN Ur Squamous Epith Cells 0-5 SEEN Urine Bacteria 1+ Urine Mucus 0 SEEN Acetone Level POC Glucose 09/22/22 09/22/22 09/22/22 06:40 07:45 09:45 WBC RBC Hgb Hct MCV MCH MCHC RDW Std Deviation RDW Coeff of Hermilo Plt Count MPV Immature Gran % (Auto) Neut % (Auto) Lymph % (Auto) Frederick % (Auto) Eos % (Auto) Baso % (Auto) Absolute Neuts (auto) Absolute Lymphs (auto) Nucleated RBC % Sodium 144 Potassium 4.3 Chloride 108 H Carbon Dioxide 11.0 L Anion Gap 25 H BUN 22 H Creatinine 1.08 H Estim Creat Clear Calc 44.25 Est GFR (MDRD) Af Amer 65 Est GFR (MDRD) Non-Af 54 L BUN/Creatinine Ratio 20.4 H Glucose 178 H Serum Osmolality Lactic Acid 1.8 Calcium 8.3 L Total Bilirubin AST ALT Alkaline Phosphatase Troponin I High Sens Total Protein Albumin Globulin Albumin/Globulin Ratio Lipase 88 Urine Color Urine Clarity Urine pH Ur Specific Clifford Urine Protein Urine Glucose (UA) Urine Ketones Urine Occult Blood Urine Nitrite Urine Bilirubin Urine Urobilinogen Ur Leukocyte Esterase Urine RBC Urine WBC Ur Squamous Epith Cells Urine Bacteria Urine Mucus Acetone Level POC Glucose 09/22/22 09/22/22 09/22/22 09:45 09:45 10:34 WBC RBC Hgb Hct MCV MCH MCHC RDW Std Deviation RDW Coeff of Hermilo Plt Count MPV Immature Gran % (Auto) Neut % (Auto) Lymph % (Auto) Frederick % (Auto) Eos % (Auto) Baso % (Auto) Absolute Neuts (auto) Absolute Lymphs (auto) Nucleated RBC % Sodium Potassium Chloride Carbon Dioxide Anion Gap BUN Creatinine Estim Creat Clear Calc Est GFR (MDRD) Af Amer Est GFR (MDRD) Non-Af BUN/Creatinine Ratio Glucose Serum Osmolality 318 H Lactic Acid Calcium Total Bilirubin AST ALT Alkaline Phosphatase Troponin I High Sens Total Protein Albumin Globulin Albumin/Globulin Ratio Lipase Urine Color Urine Clarity Urine pH Ur Specific Clifford Urine Protein Urine Glucose (UA) Urine Ketones Urine Occult Blood Urine Nitrite Urine Bilirubin Urine Urobilinogen Ur Leukocyte Esterase Urine RBC Urine WBC Ur Squamous Epith Cells Urine Bacteria Urine Mucus Acetone Level MODERATE H POC Glucose 183 H ABG Data ABG results: ABG 09/22/22 10:00 Specimen Type ALIE VBG pH 7.15 L* VBG pO2 58 H VBG HCO3 9 L VBG Total CO2 10 L VBG O2 Sat (Calc) 82 H VBG Base Excess -19 L POC Mix VBG pCO2 Pt Tmp 27.0 L Crit Call To/Read Back Yes Radiography Diagnostic Testing: Clinical Impression(s) from Imaging Studies Abdomen/Pelvis CT 09/22/22 05:54 IMPRESSION: 1. Nonspecific findings. 2. Hysterectomy. Nonvisualized appendix. 3. Collapsed lung segments of small bowel and colon, and mild mucosal enhancement in the stomach. Cannot exclude gastroenteritis-enterocolitis in the appropriate clinical setting. 4. Minimal sigmoid diverticulosis. 5. Slight hiatal hernia. 6. Slight fat-containing proximal right inguinal hernia. 7. Fatty liver. Small hypodense question cyst in the liver, too small to characterize. 8. Postoperative spine changes. Electronically Signed: Adri Shepherd MD at 8:01 EST , Chest X-Ray 09/22/22 05:54 IMPRESSION: No radiographic evidence of acute cardiopulmonary disease. Electronically Signed: Donna Peterson MD at 8:04 EST , Rhythm Strip Rhythm Strip: Sinus Rhythm Rate: 120 Ectopy: None EKG Initial EKG: Attestation: I personally reviewed and interpreted this EKG as follows: Interpretation: No Acute Injury Pattern, Sinus Tachycardia and LAFB Prior EKG tracings: available for review (Reviewed prior EKG from outpatient clinic, done as preop, 06/28/2021) Prior: Unchanged <Dr. Benito Walters, DO - Last Filed: 09/22/22 15:30> [facility] Narrative Medical decision making narrative: Patient with lower abdominal pain and tenderness, a quiet abdomen, and having difficulty keeping fluids and food down. Primary concern would be something like a small bowel obstruction or volvulus, other considerations are cardiac related in a woman who has diabetes, and the abdominal discomfort could be related to the vomiting and she could have an ileus. Or, she could have a left lower lobe pneumonia although her lungs sound clear and she is not hypoxic, with resultant GI symptoms. For these reasons, labs, EKG, chest x-ray, CT of abdomen/pelvis are obtained. Patient is a significant leukocytosis with a leftward trend/shift. Given this and her vital signs, which may more likely be due to dehydration, the rest of the septic work-up is obtained. Patient turned over the morning physician at shift change. Patient taken over from Dr. Yoo at 7 AM On my assessment patient complained of nausea vomiting fatigue and exertional shortness of breath. Patient was initially hypertensive tachycardic, hypertensive appeared ill and tachypneic she is afebrile. She is nontoxic-appearing. Abdominal exam is benign. Labs with evidence of severe metabolic acidosis. No evidence of acute life-threatening intra-abdominal pathology such as obstruction or perforation. Patient was given 3 L normal saline flu resuscitation and repeated labs. At this point added on VBG and serum ketones given patient's history of diabetes, initial hyperglycemia and signs of metabolic acidosis with anion gap. Repeat labs showed severe acidosis, anion gap and likely represented DKA. At this point she was on insulin drip admitted to the ICU under Dr. Tariq. Lab Data Attestation: I reviewed the patient's lab results. Lab results narrative: CBC with marked leukocytosis, no anemia or thrombocytopenia CMP with no severe electrolyte abnormalities, noted severe metabolic acidosis with bicarb of 10 anion gap 24, acute kidney injury, no significant hepatobiliary pathology UA with signs of inflammation and starvation but no evidence of UTI Lipase is wnl indicating no pancreatic inflammation. Lactate within normal limits indicative of no endorgan hypoperfusion Labs: Laboratory Results - last 24 hr 09/22/22 09/22/22 09/22/22 06:40 06:40 06:40 WBC 20.7 H RBC 5.33 Hgb 16.7 H Hct 51.5 H MCV 96.6 MCH 31.3 MCHC 32.4 RDW Std Deviation 45.1 H RDW Coeff of Hermilo 12.7 Plt Count 248 MPV 9.4 Immature Gran % (Auto) 0.700 Neut % (Auto) 91.5 H Lymph % (Auto) 5.1 L Frederick % (Auto) 2.4 Eos % (Auto) 0.0 Baso % (Auto) 0.3 Absolute Neuts (auto) 18.9 H Absolute Lymphs (auto) 1.05 Nucleated RBC % 0 Sodium 138 Potassium 4.3 Chloride 104 Carbon Dioxide 10.0 L Anion Gap 24 H BUN 23 H Creatinine 1.33 H Estim Creat Clear Calc 35.93 Est GFR (MDRD) Af Amer 51 L Est GFR (MDRD) Non-Af 42 L BUN/Creatinine Ratio 17.3 Glucose 225 H Serum Osmolality Lactic Acid Calcium 9.6 Total Bilirubin 0.80 AST 51 H ALT 89 H Alkaline Phosphatase 70 Troponin I High Sens 7 Total Protein 8.1 Albumin 4.2 Globulin 3.9 Albumin/Globulin Ratio 1.1 Lipase Urine Color Yellow Urine Clarity Sl. Cloudy Urine pH 6.0 Ur Specific Clifford 1.020 Urine Protein 15 H Urine Glucose (UA) 1000 H Urine Ketones 150 A* Urine Occult Blood 10 H Urine Nitrite Negative Urine Bilirubin Negative Urine Urobilinogen Normal Ur Leukocyte Esterase 25 H Urine RBC 0-5 SEEN Urine WBC 0-5 SEEN Ur Squamous Epith Cells 0-5 SEEN Urine Bacteria 1+ Urine Mucus 0 SEEN Acetone Level POC Glucose 09/22/22 09/22/22 09/22/22 06:40 07:45 09:45 WBC RBC Hgb Hct MCV MCH MCHC RDW Std Deviation RDW Coeff of Hermilo Plt Count MPV Immature Gran % (Auto) Neut % (Auto) Lymph % (Auto) Frederick % (Auto) Eos % (Auto) Baso % (Auto) Absolute Neuts (auto) Absolute Lymphs (auto) Nucleated RBC % Sodium 144 Potassium 4.3 Chloride 108 H Carbon Dioxide 11.0 L Anion Gap 25 H BUN 22 H Creatinine 1.08 H Estim Creat Clear Calc 44.25 Est GFR (MDRD) Af Amer 65 Est GFR (MDRD) Non-Af 54 L BUN/Creatinine Ratio 20.4 H Glucose 178 H Serum Osmolality Lactic Acid 1.8 Calcium 8.3 L Total Bilirubin AST ALT Alkaline Phosphatase Troponin I High Sens Total Protein Albumin Globulin Albumin/Globulin Ratio Lipase 88 Urine Color Urine Clarity Urine pH Ur Specific Clifford Urine Protein Urine Glucose (UA) Urine Ketones Urine Occult Blood Urine Nitrite Urine Bilirubin Urine Urobilinogen Ur Leukocyte Esterase Urine RBC Urine WBC Ur Squamous Epith Cells Urine Bacteria Urine Mucus Acetone Level POC Glucose 09/22/22 09/22/22 09/22/22 09:45 09:45 10:34 WBC RBC Hgb Hct MCV MCH MCHC RDW Std Deviation RDW Coeff of Hemrilo Plt Count MPV Immature Gran % (Auto) Neut % (Auto) Lymph % (Auto) Frederick % (Auto) Eos % (Auto) Baso % (Auto) Absolute Neuts (auto) Absolute Lymphs (auto) Nucleated RBC % Sodium Potassium Chloride Carbon Dioxide Anion Gap BUN Creatinine Estim Creat Clear Calc Est GFR (MDRD) Af Amer Est GFR (MDRD) Non-Af BUN/Creatinine Ratio Glucose Serum Osmolality 318 H Lactic Acid Calcium Total Bilirubin AST ALT Alkaline Phosphatase Troponin I High Sens Total Protein Albumin Globulin Albumin/Globulin Ratio Lipase Urine Color Urine Clarity Urine pH Ur Specific Clifford Urine Protein Urine Glucose (UA) Urine Ketones Urine Occult Blood Urine Nitrite Urine Bilirubin Urine Urobilinogen Ur Leukocyte Esterase Urine RBC Urine WBC Ur Squamous Epith Cells Urine Bacteria Urine Mucus Acetone Level MODERATE H POC Glucose 183 H ABG Data ABG results: ABG 09/22/22 10:00 Specimen Type ALIE VBG pH 7.15 L* VBG pO2 58 H VBG HCO3 9 L VBG Total CO2 10 L VBG O2 Sat (Calc) 82 H VBG Base Excess -19 L POC Mix VBG pCO2 Pt Tmp 27.0 L Crit Call To/Read Back Yes Radiography Diagnostic Testing: Clinical Impression(s) from Imaging Studies Abdomen/Pelvis CT 09/22/22 05:54 IMPRESSION: 1. Nonspecific findings. 2. Hysterectomy. Nonvisualized appendix. 3. Collapsed lung segments of small bowel and colon, and mild mucosal enhancement in the stomach. Cannot exclude gastroenteritis-enterocolitis in the appropriate clinical setting. 4. Minimal sigmoid diverticulosis. 5. Slight hiatal hernia. 6. Slight fat-containing proximal right inguinal hernia. 7. Fatty liver. Small hypodense question cyst in the liver, too small to characterize. 8. Postoperative spine changes. Electronically Signed: Adri Shepherd MD at 8:01 EST , Chest X-Ray 09/22/22 05:54 IMPRESSION: No radiographic evidence of acute cardiopulmonary disease. Electronically Signed: Donna Peterson MD at 8:04 EST , I have personally reviewed the patient's chest x-ray. Chest x-ray is unremarkable for pulmonary edema, pneumothorax, pneumonia or focal cardiopulmonary abnormality. <Dr. Benito Walters, DO - Last Filed: 09/22/22 15:30> Critical Care Time Critical Care Time: Yes Critical care time (excluding procedures): 30-74 minutes, Discussing w/Patient &/or Family/Organic Gardening Teacher, Discussing w/Consultants, Arranging Admission or Transfer and Performing Direct Patient Care at Bedside Discharge Plan Dx/Rx/DC Orders Clinical Impression: DKA (diabetic ketoacidosis), Essential hypertension, Tachycardia, Hypertension, Nausea & vomiting Disposition Disposition: Acute Care Hospital [facility] Discharge Date/Time: 09/22/22 11:51
[2022-09-22] MEDS: Ondansetron 4 MG/2 ML Vial IV (06:46)
[2022-09-22] MEDS: 0.9% Normal Saline 1,000 ML 1000 ML IV (06:46)
[2022-09-22 06:48] LABS: Mucous, Urine 0 SEEN /hpf (<or=2+)
[2022-09-22] MEDS: fentaNYL 100 MCG/2 ML Ampul 50 MCG IV (06:48)
[2022-09-22 06:52] LABS: Absolute Lymphocyte Count 1.05 X10^3/uL (0.83-4.51); Absolute Neutrophil Count 18.9 X10^3/uL (2.0-7.7); Basophil# 0.06 X10^3/uL; Basophil% 0.3 % (0-1); Hematocrit 51.5 % (37-47); Hemoglobin 16.7 g/dL (12.0-15.0); Lymphocyte # 1.05 X10^3/ul (0.83-4.51); Lymphocyte % 5.1 % (19-41); Mean Corp Hgb Conc 32.4 g/dL (32-36); Mean Corpuscular Hgb 31.3 pg (27.0-32.0); Mean Corpuscular Volume 96.6 fL (81-99); Mean Platelet Vol. 9.4 fl (6.2-12.0); Monocyte# 0.49 X10^3/uL; Monocyte% 2.4 % (0-10); NRBC Flagged by Analyzer 0 % (0-5); Neutrophil # 18.91 X10^3/uL (2.7-7.7); Neutrophil % 91.5 % (47-70); Platelet Count 248 K/mm3 (150-450); RBC Distribution Width CV 12.7 % (11.6-14.6); RBC Distribution Width SD 45.1 fl (35.1-43.9); Red Blood Count 5.33 M/mm3 (4.2-5.4); White Blood Count 20.7 K/mm3 (4.4-11.0)
[2022-09-22 07:08] LABS: ALB/GLOB Ratio 1.1 RATIO (0.9-2.4); AST(SGOT) 51 U/L (15-37); Alanine Aminotransfer ALT/SGPT 89 U/L (13-56); Albumin, Serum 4.2 g/dL (3.2-5.0); Alkaline Phosphatase 70 U/L (45-117); Anion Gap 24 (5-15); BUN 23 mg/dL (7-18); BUN/Creat Ratio 17.3 RATIO (10-20); Calcium,Total 9.6 mg/dL (8.5-10.1); Chloride 104 mmol/L (98-107); Creatinine, Serum 1.33 mg/dL (0.55-1.02); EST Glomerular Filtration Rate 42 mL/min (>60); Est Glom Filt Rate - Afr Amer 51 mL/min (>60); Estimated Creatinine Clearance 35.93 ml/min; Globulin 3.9 g/dL (2.2-4.2); Glucose 225 mg/dL (74-106); Potassium 4.3 mmol/L (3.5-5.1); Protein, Total 8.1 g/dL (6.4-8.2); Sodium Level 138 mmol/L (136-145); Troponin-I HS 7 pg/mL (3.0-54.0)
[2022-09-22 07:41] LABS: Color, Urine Yellow (Yellow); Glucose, Dipstick 1000 mg/dl (Normal); Leukocyte Esterase-Dipstick 25 /ul (Negative); Nitrite-Dipstick Negative (Negative); Occult Blood-Urine 10 /ul (Negative); Protein-Dipstick 15 mg/dl (Negative); Urine Bilirubin Dipstick Negative (Negative); Urine Clarity Sl. Cloudy (Clear); Urine Urobilinogen Normal (Normal)
[2022-09-22 07:43] LABS: Ketone-Dipstick 150 mg/dl (Negative)
[2022-09-22 07:47] LABS: Red Blood Cells-Urine 0-5 SEEN /hpf (0-5)
[2022-09-22 07:48] LABS: Bacteria 1+ /hpf (None Seen); Squamous Epithelial Cells - UA 0-5 SEEN /hpf (5-10); White Blood Cells 0-5 SEEN /hpf (0-5)
--- NOTE | 2022-09-22 07:49 | ED.RN ---
PROVIDER AWARE THAT LAB HAS BEEN ABLE TO ONLY COLLECT ONE COLLECT. PT IS A DIFFICULT TO OBTAIN BLOOD. CAN ONLY USE ONE ARM. ACCESS IS LIMITIED.
[2022-09-22] MEDS: 0.9% Normal Saline 1,000 ML 999 ML IV ×3 (07:53→11:19)
[2022-09-22 07:59] LABS: Lipase 88 U/L (73-393)
[2022-09-22 08:21] LABS: Lactic Acid 1.8 mmol/L (0.4-1.9)
[2022-09-22] MEDS: Famotidine 20 MG Tablet PO (09:12)
[2022-09-22] MEDS: Labetalol 200 MG Tablet PO (09:38)
[2022-09-22] MEDS: Losartan Potassium 50 MG Tablet PO (09:38)
[2022-09-22 10:05] LABS: Blood Gas Specimen Type VEN; VBG BASE EXCESS -19 mmol/L (-1.0-3.5); VBG Bicarbonate 9 mmol/L (22-26); VBG PO2 58 mmHg (25-40); VBG SO2 82 % (50-70); VBG TCO2 10 mmol/L (23-33); VBG pH 7.15 (7.32-7.42)
[2022-09-22 10:09] LABS: Anion Gap 25 (5-15); BUN 22 mg/dL (7-18); BUN/Creat Ratio 20.4 RATIO (10-20); Calcium,Total 8.3 mg/dL (8.5-10.1); Chloride 108 mmol/L (98-107); Creatinine, Serum 1.08 mg/dL (0.55-1.02); EST Glomerular Filtration Rate 54 mL/min (>60); Est Glom Filt Rate - Afr Amer 65 mL/min (>60); Estimated Creatinine Clearance 44.25 ml/min; Glucose 178 mg/dL (74-106); Potassium 4.3 mmol/L (3.5-5.1); Sodium Level 144 mmol/L (136-145)
--- NOTE | 2022-09-22 10:10 | CPS ---
Critical value verified times two. Hand delivered results to Jordan MOJICA.Verified by read back.
[2022-09-22 11:01] LABS: Bedside Glucose 183 mg/dL (74-106)
--- NOTE | 2022-09-22 11:07 | HP.PCM.HOS_ITS ---
HPI - General General Date of Admission: 09/22/22 Date of Service: 09/22/22 Chief Complaint: Nausea, vomiting abdominal pain and left-sided lower chest pain for 5 days. Could not eat. DKA HPI Narrative STEVE LONG, is a 67 F who came to ED for abdominal pain, nausea vomiting left lower chest discomfort and a nonproductive cough for 5 days. No fever or chills. Patient stated she has not been feeling well, generalized weakness, muscle cramps in lower legs therefore did not take her medications. She denies burning micturition or UTI. Patient is on empagliflozin and semaglutide along with other antidiabetic medications. She has history of diabetes mellitus type 2. Patient does not have hematemesis, melena or hematochezia. Patient was tachycardic in ER along with high blood pressure 191/98 but no tachypnea or hypoxia. Initial lab work in the ED was suggestive of DKA with anion gap 24, bicarb 10 and venous blood gas pH 7.15 with mixed PCO2 27. Patient was given 3 L of IV fluid normal saline and started on insulin drip in ED and further admitted in ICU. [facility] Medical History Arthritis Asthma Breast cancer Breast cancer, left breast Essential hypertension GERD (gastroesophageal reflux disease) History of irregular heartbeat History of left heart catheterization (LHC) (~05/20/06) HTN (hypertension) Hyperlipemia IBS (irritable bowel syndrome) Mitral valve prolapse Mixed hyperlipidemia Osteoarthritis Pneumonia POTS (postural orthostatic tachycardia syndrome) Shortness of breath on exertion Sleep apnea Spinal cord stimulator dysfunction Suspected 2019 novel coronavirus infection Type 2 diabetes mellitus Wears contact lenses Wears glasses Home Medications labetalol 200 mg tablet 200 mg PO BID BLOOD PRESSURE 12/06/19 [History Last Taken 09/17/22] albuterol sulfate 90 mcg/actuation aerosol inhaler (Ventolin HFA) 2 puff inhalation Q4H PRN Wheezing 10/23/20 [History Last Taken 06/24/22] doxepin 25 mg capsule 25 mg PO QHS DEPRESSION/ANXIETY 10/23/20 [History Last Taken 09/17/22] duloxetine 60 mg capsule,delayed release (Cymbalta) 60 mg PO DAILY DEPRESSION /ANXIETY 10/23/20 [History Last Taken 09/17/22] multivitamin 1 tab PO DAILY HEALTH MAINTENANCE 10/23/20 [History Last Taken 09/17/22] esomeprazole magnesium 20 mg tablet,delayed release (Nexium 24HR) 20 mg PO DAILY PRN Acid Reflux 10/25/20 [History Last Taken Unknown] fluticasone propionate 250 mcg/actuation blister powder for inhalation (Flovent Diskus) 2 inh inhalation BID ASTHMA 10/25/20 [History Last Taken 09/17/22] glimepiride 4 mg tablet 2 mg PO DAILY diabetes 10/25/20 [History Last Taken 09/17/22] insulin glargine 100 unit/mL (3 mL) subcutaneous pen (Lantus Solostar U-100 Insulin) 12 unit subcut QPM DIABETES 10/25/20 [History Last Taken 09/17/22] losartan 50 mg tablet 50 mg PO BID BLOOD PRESSURE 10/25/20 [History Last Taken 09/17/22] tamoxifen 20 mg tablet 20 mg PO DAILY BREAST CANCER 10/25/20 [History Last Taken 09/17/22] albuterol sulfate 0.63 mg/3 mL solution for nebulization 0.63 mg inhalation BID ASTHMA 07/17/21 [History Last Taken Unknown] semaglutide 0.25 mg or 0.5 mg (2 mg/1.5 mL) subcutaneous pen injector (Ozempic) 0.25 mg subcut SA DIABETES 07/17/21 [History Last Taken 09/13/22] clobetasol-emollient 0.05 % topical cream 1 applic topical BID AFFECTED AREA 09/22/22 [History Last Taken 09/17/22] empagliflozin 25 mg tablet (Jardiance) 25 mg PO DAILY DIABETES 09/22/22 [History Last Taken 09/17/22] Allergy/AdvReac Type Severity Reaction Status Date / Time hydrochlorothiazide Allergy Rash Verified 09/22/22 05:48 [From Zestoretic] lisinopril [From Zestoretic] Allergy Rash Verified 09/22/22 05:48 metformin Allergy Rash Verified 09/22/22 05:48 morphine Allergy Rash Verified 09/22/22 05:48 STERIODS Allergy Rash Uncoded 09/22/22 05:48 Family History Father Hypertension Mother Hypertension Surgical History History of appendectomy History of back surgery History of foot surgery History of total hysterectomy with bilateral salpingo-oophorectomy (BSO) Social History Smoking Status: Never smoker alcohol intake: current details: occasional substance use type: does not use caffeine: Yes Type: coffee Number of servings: 1 ROS ROS Narrative Constitutional: Reports fatigue and weakness. Dehydrated. HEENT: Reports systems reviewed and no addt'l complaints, except as documented Respiratory/Chest: Generalized chest pain, nonspecific. No shortness of breath. Gastrointestinal: Persistent nausea vomiting but no GI bleed. Denies diarrhea or constipation. Genitourinary: Denies burning urination or new urinary tract symptoms Musculoskeletal: Bilateral lower extremity muscle and bone pain. Neurologic: Denies seizure-like activity. No strokelike symptoms skin: No ulcer. No rash Endocrinology: DM type II.denies previous history of DKA. Reports systems reviewed and no addt'l complaints, except as documented Hematologic/Lymphatic: Reports systems reviewed and no addt'l complaints, except as documented Rest 14 ROS are negative except as mentioned in HPI Vital Signs Vital Signs Vital Signs: 09/22/22 05:46 09/22/22 07:57 09/22/22 07:57 Temperature 96.3 F L Temperature Source Temporal Pulse Rate 131 H 128 H Respiratory Rate 20 H 20 H Blood Pressure 191/98 H 186/95 H Blood Pressure Mean 129 125 Pulse Ox 99 98 Oxygen Delivery Method Room Air Room Air Room Air 09/22/22 09:09 09/22/22 09:39 09/22/22 11:00 Temperature Temperature Source Pulse Rate 132 H Respiratory Rate Blood Pressure 202/88 H 209/98 H 168/90 H Blood Pressure Mean 126 135 116 Pulse Ox Oxygen Delivery Method Weight Weight: 162 lb 14.746 oz Body Mass Index (BMI) 27.9 Physical Exam Narrative Physical exam General: Alert, Oriented x3, Cooperative HEENT: Atraumatic, PERRLA, EOMI, Normocephalic Oral: Oral mucosa dry. No Gingival or Mucosal Lesions/ Ulcerations Neck: Supple, No JVD, Negative Carotid Bruits Chest/lungs: Air entry diminished in bilateral lung bases. No crepitation/rhonchi. No acute rib tenderness or chest wall tenderness. Cardiovascular: Sinus tachycardia, Normal S1, Normal S2, No murmurs Abdomen: Bowel Sounds sluggish, Soft, Non Tender, Non-Distended : Urine dark-colored. No renal angle tenderness. No suprapubic tenderness. Extremities: No edema, Capillary Refill Less than 3 Seconds Skin: No rashes, No breakdown Musculoskeletal: Mild bony tenderness in lower legs. ROM restricted. Neurological: Cranial nerves II-XII grossly intact, DTR 2+/4 and Symmetrical, Neuro grossly intact Psych/Mental Status: Flat affect. Results Lab / Micro Data Result Diagrams: 09/22/22 06:40 09/22/22 15:15 Labs: Laboratory Results - last 24 hr 09/22/22 06:40: WBC 20.7 H, RBC 5.33, Hgb 16.7 H, Hct 51.5 H, MCV 96.6, MCH 31.3, MCHC 32.4, RDW Std Deviation 45.1 H, RDW Coeff of Hermilo 12.7, Plt Count 248, MPV 9.4, Immature Gran % (Auto) 0.700, Neut % (Auto) 91.5 H, Lymph % (Auto) 5.1 L, [place] % (Auto) 2.4, Eos % (Auto) 0.0, Baso % (Auto) 0.3, Absolute Neuts (auto) 18.9 H, Absolute Lymphs (auto) 1.05, Nucleated RBC % 0 09/22/22 06:40: Sodium 138, Potassium 4.3, Chloride 104, Carbon Dioxide 10.0 L, Anion Gap 24 H, BUN 23 H, Creatinine 1.33 H, Estim Creat Clear Calc 35.93, Est GFR (MDRD) Af Amer 51 L, Est GFR (MDRD) Non-Af 42 L, BUN/Creatinine Ratio 17.3, Glucose 225 H, Calcium 9.6, Total Bilirubin 0.80, AST 51 H, ALT 89 H, Alkaline Phosphatase 70, Troponin I High Sens 7, Total Protein 8.1, Albumin 4.2, Globulin 3.9, Albumin/Globulin Ratio 1.1 09/22/22 06:40: Urine Color Yellow, Urine Clarity Sl. Cloudy, Urine pH 6.0, Ur Specific [place] 1.020, Urine Protein 15 H, Urine Glucose (UA) 1000 H, Urine Ketones 150 A*, Urine Occult Blood 10 H, Urine Nitrite Negative, Urine Bilirubin Negative, Urine Urobilinogen Normal, Ur Leukocyte Esterase 25 H, Urine RBC 0-5 SEEN, Urine WBC 0-5 SEEN, Ur Squamous Epith Cells 0-5 SEEN, Urine Bacteria 1+, Urine Mucus 0 SEEN 09/22/22 06:40: Lipase 88 09/22/22 07:45: Lactic Acid 1.8 09/22/22 09:45: Sodium 144, Potassium 4.3, Chloride 108 H, Carbon Dioxide 11.0 L , Anion Gap 25 H, BUN 22 H, Creatinine 1.08 H, Estim Creat Clear Calc 44.25, Est GFR (MDRD) Af Amer 65, Est GFR (MDRD) Non-Af 54 L, BUN/Creatinine Ratio 20.4 H, Glucose 178 H, Calcium 8.3 L 09/22/22 09:45: Acetone Level MODERATE H 09/22/22 10:34: POC Glucose 183 H Micro: Microbiology 09/22/22 06:10 Nasal Secretion SARS-CoV-2 & FLU Antigen (Rapid) - Final ABG Data ABG results: ABG 09/22/22 10:00 Specimen Type ALIE VBG pH 7.15 L* VBG pO2 58 H VBG HCO3 9 L VBG Total CO2 10 L VBG O2 Sat (Calc) 82 H VBG Base Excess -19 L POC Mix VBG pCO2 Pt Tmp 27.0 L Crit Call To/Read Back Yes Rhythm Strip Rhythm Strip: Sinus Rhythm Rate: 120 Ectopy: None Radiology Impression Abdomen/Pelvis CT 09/22/22 05:54 IMPRESSION: 1. Nonspecific findings. 2. Hysterectomy. Nonvisualized appendix. 3. Collapsed lung segments of small bowel and colon, and mild mucosal enhancement in the stomach. Cannot exclude gastroenteritis-enterocolitis in the appropriate clinical setting. 4. Minimal sigmoid diverticulosis. 5. Slight hiatal hernia. 6. Slight fat-containing proximal right inguinal hernia. 7. Fatty liver. Small hypodense question cyst in the liver, too small to characterize. 8. Postoperative spine changes. Electronically Signed: Adri Shepherd MD at 8:01 EST , Chest X-Ray 09/22/22 05:54 IMPRESSION: No radiographic evidence of acute cardiopulmonary disease. Electronically Signed: Donna Peterson MD at 8:04 EST , Assessment & Plan Assessment/Plan (1) DKA (diabetic ketoacidosis): (2) Type 2 diabetes mellitus: PLAN: Plan This 67-year-old female is being admitted for 5 days history of persistent nausea, vomiting, abdominal and chest wall pain, muscle cramps and lab abnormalities consistent with DKA. 1. DKA with history of DM type II: Patient is on empagliflozin that has potential for DKA even on euglycemia or hypoglycemia. Patient is being admitted to ICU. Continue IV fluid resuscitation as per DKA protocol.Her glucose was 59 in Accu-Chek therefore insulin drip was transiently on hold. Acetone moderate. Anion gap 24, bicarb 10. Serum osmolality 318. Serum magnesium and phosphorus level normal. Potassium 5.1. Discussed with the nursing staff regarding insulin drip and IV fluid. Hold oral hypoglycemic agents and semaglutide. Abdomen pelvis CT and chest x-ray does not show any acute structural abnormality but collapsed small bowel and colon. 2. Hypertensive urgency: Patient has history of essential hypertension. BP was very high in ED. Currently patient is n.p.o. therefore IV hydralazine ordered as needed for systolic blood pressure more than 180. Patient was seen in cardiology for dyspnea on exertion in mid 2020. She had normal pharmacological nuclear stress test. Echo in October 2020 reported EF 65% with trivial MR TR and PI. Blood pressure has improved. Last 1 BP is 123/60. Continue labetalol oral and losartan with holding parameters 3.? History of mild intermittent asthma: DuoNeb as needed. Patient on Flovent continued. Patient does not seem to be in asthma exacerbation. 4.? 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 Patient on duloxetine and doxepin continued 5. DVT prophylaxis ?Enoxaparin Total time of the visit including total time spent in counseling or coordination of care, (more than 50% of the total time, spent in obtaining medical information from nurses and other ancillary care providers,explaining to the patient about labs, imaging, diagnosis and management of active complex medical conditions), review of medical record, review of labs and imaging is 60 minutes. Living will/advanced directive/end of life care: Patient does not have living will or advanced directive. After discussion of benefits/risks procedures in volved with full code, DNR CC arrest and DNR CC, the patient initially not clear and want to think more than discussed with . For now, she wants full code until further change.. Patient does want artificial life support including intubation, tube feed, ventilator and/chest compression, central venous catheter, vasopressor and DC shock if needed Total time spent in [id number] encounter in discussion of advanced directive 18 minutes. Clinical Impression(s) from Imaging Studies Abdomen/Pelvis CT 09/22/22 05:54 IMPRESSION: 1. Nonspecific findings. 2. Hysterectomy. Nonvisualized appendix. 3. Collapsed lung segments of small bowel and colon, and mild mucosal enhancement in the stomach. Cannot exclude gastroenteritis-enterocolitis in the appropriate clinical setting. 4. Minimal sigmoid diverticulosis. 5. Slight hiatal hernia. 6. Slight fat-containing proximal right inguinal hernia. 7. Fatty liver. Small hypodense question cyst in the liver, too small to characterize. 8. Postoperative spine changes. Chest X-Ray 09/22/22 05:54 IMPRESSION: No radiographic evidence of acute cardiopulmonary disease. Microbiology Past 72 Hours 09/22/22 06:10 Nasal Secretion SARS-CoV-2 & FLU Antigen (Rapid) - Final Laboratory Results 09/22/22 06:40: WBC 20.7 H, RBC 5.33, Hgb 16.7 H, Hct 51.5 H, MCV 96.6, MCH 31.3, MCHC 32.4, RDW Std Deviation 45.1 H, RDW Coeff of Hermilo 12.7, Plt Count 248, MPV 9.4, Immature Gran % (Auto) 0.700, Neut % (Auto) 91.5 H, Lymph % (Auto) 5.1 L, [place] % (Auto) 2.4, Eos % (Auto) 0.0, Baso % (Auto) 0.3, Absolute Neuts (auto) 18.9 H, Absolute Lymphs (auto) 1.05, Nucleated RBC % 0 09/22/22 06:40: Sodium 138, Potassium 4.3, Chloride 104, Carbon Dioxide 10.0 L, Anion Gap 24 H, BUN 23 H, Creatinine 1.33 H, Estim Creat Clear Calc 35.93, Est GFR (MDRD) Af Amer 51 L, Est GFR (MDRD) Non-Af 42 L, BUN/Creatinine Ratio 17.3, Glucose 225 H, Calcium 9.6, Total Bilirubin 0.80, AST 51 H, ALT 89 H, Alkaline Phosphatase 70, Troponin I High Sens 7, Total Protein 8.1, Albumin 4.2, Globulin 3.9, Albumin/Globulin Ratio 1.1 09/22/22 06:40: Urine Color Yellow, Urine Clarity Sl. Cloudy, Urine pH 6.0, Ur Specific [place] 1.020, Urine Protein 15 H, Urine Glucose (UA) 1000 H, Urine Ketones 150 A*, Urine Occult Blood 10 H, Urine Nitrite Negative, Urine Bilirubin Negative, Urine Urobilinogen Normal, Ur Leukocyte Esterase 25 H, Urine RBC 0-5 SEEN, Urine WBC 0-5 SEEN, Ur Squamous Epith Cells 0-5 SEEN, Urine Bacteria 1+, Urine Mucus 0 SEEN 09/22/22 06:40: Lipase 88 09/22/22 07:45: Lactic Acid 1.8 09/22/22 09:45: Sodium 144, Potassium 4.3, Chloride 108 H, Carbon Dioxide 11.0 L , Anion Gap 25 H, BUN 22 H, Creatinine 1.08 H, Estim Creat Clear Calc 44.25, Est GFR (MDRD) Af Amer 65, Est GFR (MDRD) Non-Af 54 L, BUN/Creatinine Ratio 20.4 H, Glucose 178 H, Calcium 8.3 L 09/22/22 09:45: Acetone Level MODERATE H 09/22/22 09:45: Serum Osmolality 318 H 09/22/22 10:00: Specimen Type ALIE, VBG pH 7.15 L*, VBG pO2 58 H, VBG HCO3 9 L, VBG Total CO2 10 L, VBG O2 Sat (Calc) 82 H, VBG Base Excess -19 L, POC Mix VBG pCO2 Pt Tmp 27.0 L, Crit Call To/Read Back Yes 09/22/22 10:34: POC Glucose 183 H 09/22/22 11:00: Sodium 143, Potassium 4.5, Chloride 111 H, Carbon Dioxide 10.0 L , Anion Gap 22 H, BUN 22 H, Creatinine 1.17 H, Estim Creat Clear Calc 40.84, Est GFR (MDRD) Af Amer 59 L, Est GFR (MDRD) Non-Af 49 L, BUN/Creatinine Ratio 18.8, Glucose 184 H, Calcium 8.9 09/22/22 11:00: Phosphorus 4.7, Magnesium 2.2 09/22/22 12:06: POC Glucose 163 H 09/22/22 13:10: POC Glucose 134 H 09/22/22 14:07: POC Glucose 112 H 09/22/22 15:02: POC Glucose 86 09/22/22 15:15: Sodium 143, Potassium 5.1, Chloride 117 H, Carbon Dioxide 10.0 L , Anion Gap 16 H, BUN 20 H, Creatinine 1.07 H, Estim Creat Clear Calc 44.66, Est GFR (MDRD) Af Amer 66, Est GFR (MDRD) Non-Af 54 L, BUN/Creatinine Ratio 18.7, Glucose 99, Calcium 7.9 L 09/22/22 15:42: POC Glucose 59 L Charges/Coding Visit Charges Inpatient E&M: 01427 Init Hosp L3 Procedures Hospitalists Procedures: 10295 Advncd Care Plan 30 Min
[2022-09-22] MEDS: HYDROmorphone 0.5 MG/0.5 ML SYRINGE IV (11:12)
[2022-09-22 11:25] LABS: Anion Gap 22 (5-15); BUN 22 mg/dL (7-18); BUN/Creat Ratio 18.8 RATIO (10-20); Calcium,Total 8.9 mg/dL (8.5-10.1); Chloride 111 mmol/L (98-107); Creatinine, Serum 1.17 mg/dL (0.55-1.02); EST Glomerular Filtration Rate 49 mL/min (>60); Est Glom Filt Rate - Afr Amer 59 mL/min (>60); Estimated Creatinine Clearance 40.84 ml/min; Glucose 184 mg/dL (74-106); Potassium 4.5 mmol/L (3.5-5.1); Sodium Level 143 mmol/L (136-145)
[2022-09-22 11:45] LABS: Magnesium 2.2 mg/dL (1.6-2.6); Phosphorus 4.7 mg/dL (2.5-4.9)
[2022-09-22] MEDS: Dext 5%-0.45% NS 1,000 ML 150 ML IV ×2 (12:41→18:48)
[2022-09-22 13:06] LABS: Osmolality, Serum 318 mOsm/KG (280-301)
[2022-09-22] MEDS: Enoxaparin 40 MG/0.4 ML Syringe SC (14:09)
[2022-09-22 14:26] LABS: Bedside Glucose 163 mg/dL (74-106)
[2022-09-22 14:26] LABS: Bedside Glucose 134 mg/dL (74-106)
[2022-09-22] MEDS: Dextrose 50%-Water 25 GM/50 ML DISP.SYRIN IV (15:45)
[2022-09-22 15:52] LABS: Anion Gap 16 (5-15); BUN 20 mg/dL (7-18); BUN/Creat Ratio 18.7 RATIO (10-20); Calcium,Total 7.9 mg/dL (8.5-10.1); Chloride 117 mmol/L (98-107); Creatinine, Serum 1.07 mg/dL (0.55-1.02); EST Glomerular Filtration Rate 54 mL/min (>60); Est Glom Filt Rate - Afr Amer 66 mL/min (>60); Estimated Creatinine Clearance 44.66 ml/min; Glucose 99 mg/dL (74-106); Potassium 5.1 mmol/L (3.5-5.1); Sodium Level 143 mmol/L (136-145)
[2022-09-22 16:01] LABS: Bedside Glucose 86 mg/dL (74-106)
[2022-09-22 16:01] LABS: Bedside Glucose 59 mg/dL (74-106)
[2022-09-22 16:01] LABS: Bedside Glucose 112 mg/dL (74-106)
[2022-09-22 18:31] LABS: Bedside Glucose 169 mg/dL (74-106)
[2022-09-22 18:31] LABS: Bedside Glucose 159 mg/dL (74-106)
[2022-09-22 19:21] LABS: Anion Gap 12 (5-15); BUN 20 mg/dL (7-18); BUN/Creat Ratio 17.9 RATIO (10-20); Chloride 117 mmol/L (98-107); Creatinine, Serum 1.12 mg/dL (0.55-1.02); EST Glomerular Filtration Rate 52 mL/min (>60); Est Glom Filt Rate - Afr Amer 63 mL/min (>60); Estimated Creatinine Clearance 42.67 ml/min; Glucose 227 mg/dL (74-106); Potassium 4.1 mmol/L (3.5-5.1); Sodium Level 143 mmol/L (136-145)
[2022-09-22 20:31] LABS: Bedside Glucose 188 mg/dL (74-106)
[2022-09-22] MEDS: 0.9% Saline Lock 10 ML Syringe IV (21:22)
[2022-09-22] MEDS: Doxepin Hcl 25 MG Capsule PO (21:22)
[2022-09-22] MEDS: DULoxetine Hcl 60 MG Capsule PO (21:22)
[2022-09-22 21:40] LABS: Bedside Glucose 175 mg/dL (74-106)
[2022-09-22 22:25] LABS: Bedside Glucose 145 mg/dL (74-106)
[2022-09-22 22:25] LABS: Bedside Glucose 195 mg/dL (74-106)
[2022-09-22 22:25] LABS: Bedside Glucose 231 mg/dL (74-106)
[2022-09-22 23:30] LABS: Bedside Glucose 128 mg/dL (74-106)
[2022-09-22 23:36] LABS: Anion Gap 9 (5-15); BUN 18 mg/dL (7-18); BUN/Creat Ratio 16.4 RATIO (10-20); Calcium,Total 8.1 mg/dL (8.5-10.1); Chloride 118 mmol/L (98-107); EST Glomerular Filtration Rate 53 mL/min (>60); Est Glom Filt Rate - Afr Amer 64 mL/min (>60); Estimated Creatinine Clearance 43.44 ml/min; Glucose 149 mg/dL (74-106); Potassium 3.4 mmol/L (3.5-5.1); Sodium Level 145 mmol/L (136-145)
[2022-09-23] VITALS (14 sets, daily range): BP systolic 94–174; BP diastolic 40–90; PULSE 83–111; RESP 12–18; TEMP 36.3–37.2; O2SAT 93–100
[2022-09-23] MEDS: Insulin Glargine-YFGN 100 UNIT/ML Pen 10 UNIT SC (00:50)
[2022-09-23] MEDS: Insulin Lispro 100 UNIT/ML INSULN.PEN SC (01:26)
[2022-09-23 01:46] LABS: Bedside Glucose 157 mg/dL (74-106)
[2022-09-23 04:04] LABS: Absolute Lymphocyte Count 2.46 X10^3/uL (0.83-4.51); Absolute Neutrophil Count 7.8 X10^3/uL (2.0-7.7); Basophil# 0.04 X10^3/uL; Basophil% 0.4 % (0-1); Eosinophil# 0.01 X10^3/uL; Eosinophils% 0.1 % (0-5); Hematocrit 39.2 % (37-47); Hemoglobin 12.2 g/dL (12.0-15.0); Lymphocyte # 2.46 X10^3/ul (0.83-4.51); Lymphocyte % 21.9 % (19-41); Mean Corp Hgb Conc 31.1 g/dL (32-36); Mean Corpuscular Hgb 31.6 pg (27.0-32.0); Mean Corpuscular Volume 101.6 fL (81-99); Mean Platelet Vol. 9.1 fl (6.2-12.0); Monocyte# 0.81 X10^3/uL; Monocyte% 7.2 % (0-10); NRBC Flagged by Analyzer 0 % (0-5); Neutrophil # 7.83 X10^3/uL (2.7-7.7); Neutrophil % 69.6 % (47-70); Platelet Count 147 K/mm3 (150-450); RBC Distribution Width CV 13.2 % (11.6-14.6); RBC Distribution Width SD 49.5 fl (35.1-43.9); Red Blood Count 3.86 M/mm3 (4.2-5.4); White Blood Count 11.2 K/mm3 (4.4-11.0)
[2022-09-23 04:29] LABS: Thyroid Stim Hormone (TSH) 0.35 uIU/mL (0.358-3.74)
[2022-09-23 04:32] LABS: Anion Gap 11 (5-15); BUN 16 mg/dL (7-18); BUN/Creat Ratio 14.8 RATIO (10-20); Calcium,Total 8.3 mg/dL (8.5-10.1); Chloride 116 mmol/L (98-107); Creatinine, Serum 1.08 mg/dL (0.55-1.02); EST Glomerular Filtration Rate 54 mL/min (>60); Est Glom Filt Rate - Afr Amer 65 mL/min (>60); Estimated Creatinine Clearance 44.25 ml/min; Glucose 153 mg/dL (74-106); Potassium 3.5 mmol/L (3.5-5.1); Sodium Level 141 mmol/L (136-145)
[2022-09-23] MEDS: traMADol 50 MG Tablet PO (06:40)
[2022-09-23] MEDS: Ipratropium/Albuterol Sulfate 3 ML AMPUL.NEB INHALATION (07:49)
[2022-09-23] MEDS: Budesonide Respules 0.5 MG/2 ML AMPUL.NEB. INHALATION (07:49)
[2022-09-23 08:22] LABS: Hemoglobin A1c 6.8 % (3.8-5.6)
[2022-09-23 08:25] LABS: Bedside Glucose 134 mg/dL (74-106)
--- NOTE | 2022-09-23 09:35 | DCINST_ITS ---
Discharge Instructions Diet Discharge Diet: 1800 Calorie Control Diet Activity Discharge Activity: Return to Normal Activity Weight Bearing Status: Weight bearing as tolerated Dressing / Incision Call your doctor if you observe: Fever of 101 or Higher, Coldness, Increased Pain, Numbness or Tingling, Change in Color, Inability to urinate, Inability to have a bowel movement, Using more than 1 pad per hour, Shortness of breath, Dizziness, Fainting spells, Swelling in the ankles, Chest pain, Prolonged hiccupping, Increased palpitations (irregular heartbeat), Calf discomfort and Uncontrolled pain Follow Up Care Test Results: Test results from this visit will be discussed in further detail at your follow- up appointment, if applicable. Discharge Plan Admission Admit Date/Time: 09/22/22 11:00 Primary Reason for Your Visit: DKA Attending Provider: Michelet Tariq Primary Care Provider: Yon Anton Discharge Orders/Prescriptions Prescriptions: Continued tamoxifen 20 mg tablet 20 mg PO DAILY Flovent Diskus 250 mcg/actuation blister with device 2 inh INHALATION BID losartan 50 mg tablet 50 mg PO BID albuterol sulfate [Ventolin HFA] 90 mcg/actuation HFA aerosol inhaler 2 puff INHALATION Q4H PRN (Reason: Wheezing) duloxetine [Cymbalta] 60 mg capsule,delayed release(DR/EC) 60 mg PO DAILY doxepin 25 mg capsule 25 mg PO QHS multivitamin Tablet 1 tab PO DAILY Lantus Solostar U-100 Insulin 100 unit/mL (3 mL) insulin pen 12 unit SC QPM labetalol 200 MG tablet 200 mg PO BID albuterol sulfate 0.63 mg/3 mL Solution For Nebulization 0.63 mg INHALATION BID Ozempic 0.25 mg or 0.5 mg(2 mg/1.5 mL) pen injector 0.25 mg SUBCUT SA clobetasol-emollient 0.05 % cream 1 applic TOPICAL BID Changed esomeprazole magnesium [Nexium 24HR] 20 mg tablet,delayed release (DR/EC) 40 mg PO DAILY Qty: 30 0RF Held glimepiride 4 mg tablet 2 mg PO DAILY Hold Instructions: Hold for 5 days. Jardiance 25 mg tablet 25 mg PO DAILY Hold Instructions: Hold for 5 days. Referrals / Follow Up: Yon Anton MD [Primary Care Provider] - Within 2 Weeks Disposition Disposition (needs filled in before D/C Order can be placed): Home, Self Care
[2022-09-23] MEDS: Losartan Potassium 50 MG Tablet PO (09:37)
[2022-09-23] MEDS: Labetalol 200 MG Tablet PO (09:37)
[2022-09-23] MEDS: Tamoxifen 10 MG Tablet 20 MG PO (09:37)
[2022-09-23] MEDS: DULoxetine Hcl 60 MG Capsule PO (09:37)
[2022-09-23] MEDS: Multivitamins,Therapeutic Tablet 1 TABLET PO (09:40)
--- NOTE | 2022-09-23 09:40 | DS.PCM_ITS ---
Providers Date of Admission: 09/22/22 Date of Discharge: 09/23/22 Primary Care Physician: Dr. Yon Anton MD Reason For Visit: DKA Diagnosis Discharge Diagnosis (1) DKA (diabetic ketoacidosis): Status: Acute Code(s): E11.10 - Type 2 diabetes mellitus with ketoacidosis without coma (2) Type 2 diabetes mellitus: Status: Chronic Code(s): E11.9 - Type 2 diabetes mellitus without complications Plan This 67-year-old female is being admitted for 5 days history of persistent nausea, vomiting, abdominal and chest wall pain, muscle cramps and lab abnormalities consistent with DKA. 1. DKA with history of DM type II: Patient is on empagliflozin that has potential for DKA even on euglycemia or hypoglycemia. Patient is being admitted to ICU. Continue IV fluid resuscitation as per DKA protocol.Her glucose was 59 in Accu-Chek therefore insulin drip was transiently on hold. Acetone moderate. Anion gap 24, bicarb 10. Serum osmolality 318. Serum magnesium and phosphorus level normal. Potassium 5.1. Discussed with the nursing staff regarding insulin drip and IV fluid. Hold oral hypoglycemic agents and semaglutide. Abdomen pelvis CT and chest x-ray does not show any acute structural abnormality but collapsed small bowel and colon. 09/23: Anion gap closed x2. Bicarb is still low at 14. Leukocytosis has imp roved almost to normal. Potassium 3.5. Patient wants to go home as her father is near , home with home hospice. As per the hospice nurse he will not survive longer therefore patient wants discharge. Advised follow-up with PCP. 2. Hypertensive urgency: Patient has history of essential hypertension. BP was very high in ED. Currently patient is n.p.o. therefore IV hydralazine ordered as needed for systolic blood pressure more than 180. Patient was seen in cardiology for dyspnea on exertion in mid 2020. She had normal pharmacological nuclear stress test. Echo in October 2020 reported EF 65% with trivial MR TR and PI. Blood pressure has improved. Last 1 BP is 123/60. Continue labetalol oral and losartan with holding parameters 09/23: Blood pressure still little elevated but patient was NPO. Patient is on losartan and blood pressure medication resumed. 3.? History of mild intermittent asthma: DuoNeb as needed. Patient on Flovent continued. Patient does not seem to be in asthma exacerbation. 4.? 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 Patient on duloxetine and doxepin continued 5. DVT prophylaxis ?Enoxaparin Living will/advanced directive/end of life care: Patient does not have living will or advanced directive. After discussion of benefits/risks procedures involved with full code, DNR CC arrest and DNR CC, the patient initially not clear and want to think more than discussed with . For now, she wants full code until further change.. Patient does want artificial life support including intubation, tube feed, ventilator and/chest compression, central venous catheter, vasopressor and DC shock if needed Total time spent in [id number] encounter in discussion of advanced directive 18 minutes. Clinical Impression(s) from Imaging Studies Abdomen/Pelvis CT 09/22/22 05:54 IMPRESSION: 1. Nonspecific findings. 2. Hysterectomy. Nonvisualized appendix. 3. Collapsed lung segments of small bowel and colon, and mild mucosal enhancement in the stomach. Cannot exclude gastroenteritis-enterocolitis in the appropriate clinical setting. 4. Minimal sigmoid diverticulosis. 5. Slight hiatal hernia. 6. Slight fat-containing proximal right inguinal hernia. 7. Fatty liver. Small hypodense question cyst in the liver, too small to characterize. 8. Postoperative spine changes. Chest X-Ray 09/22/22 05:54 IMPRESSION: No radiographic evidence of acute cardiopulmonary disease. Microbiology Past 72 Hours 09/22/22 06:10 Nasal Secretion SARS-CoV-2 & FLU Antigen (Rapid) - Final Laboratory Results 09/22/22 06:40: WBC 20.7 H, RBC 5.33, Hgb 16.7 H, Hct 51.5 H, MCV 96.6, MCH 31.3, MCHC 32.4, RDW Std Deviation 45.1 H, RDW Coeff of Hermilo 12.7, Plt Count 248, MPV 9.4, Immature Gran % (Auto) 0.700, Neut % (Auto) 91.5 H, Lymph % (Auto) 5.1 L, [place] % (Auto) 2.4, Eos % (Auto) 0.0, Baso % (Auto) 0.3, Absolute Neuts (auto) 18.9 H, Absolute Lymphs (auto) 1.05, Nucleated RBC % 0 09/22/22 06:40: Sodium 138, Potassium 4.3, Chloride 104, Carbon Dioxide 10.0 L, Anion Gap 24 H, BUN 23 H, Creatinine 1.33 H, Estim Creat Clear Calc 35.93, Est GFR (MDRD) Af Amer 51 L, Est GFR (MDRD) Non-Af 42 L, BUN/Creatinine Ratio 17.3, Glucose 225 H, Calcium 9.6, Total Bilirubin 0.80, AST 51 H, ALT 89 H, Alkaline Phosphatase 70, Troponin I High Sens 7, Total Protein 8.1, Albumin 4.2, Globulin 3.9, Albumin/Globulin Ratio 1.1 09/22/22 06:40: Urine Color Yellow, Urine Clarity Sl. Cloudy, Urine pH 6.0, Ur Specific [place] 1.020, Urine Protein 15 H, Urine Glucose (UA) 1000 H, Urine Ketones 150 A*, Urine Occult Blood 10 H, Urine Nitrite Negative, Urine Bilirubin Negative, Urine Urobilinogen Normal, Ur Leukocyte Esterase 25 H, Urine RBC 0-5 SEEN, Urine WBC 0-5 SEEN, Ur Squamous Epith Cells 0-5 SEEN, Urine Bacteria 1+, Urine Mucus 0 SEEN 09/22/22 06:40: Lipase 88 09/22/22 07:45: Lactic Acid 1.8 09/22/22 09:45: Sodium 144, Potassium 4.3, Chloride 108 H, Carbon Dioxide 11.0 L , Anion Gap 25 H, BUN 22 H, Creatinine 1.08 H, Estim Creat Clear Calc 44.25, Est GFR (MDRD) Af Amer 65, Est GFR (MDRD) Non-Af 54 L, BUN/Creatinine Ratio 20.4 H, Glucose 178 H, Calcium 8.3 L 09/22/22 09:45: Acetone Level MODERATE H 09/22/22 09:45: Serum Osmolality 318 H 09/22/22 10:00: Specimen Type ALIE, VBG pH 7.15 L*, VBG pO2 58 H, VBG HCO3 9 L, VBG Total CO2 10 L, VBG O2 Sat (Calc) 82 H, VBG Base Excess -19 L, POC Mix VBG pCO2 Pt Tmp 27.0 L, Crit Call To/Read Back Yes 09/22/22 10:34: POC Glucose 183 H 09/22/22 11:00: Sodium 143, Potassium 4.5, Chloride 111 H, Carbon Dioxide 10.0 L , Anion Gap 22 H, BUN 22 H, Creatinine 1.17 H, Estim Creat Clear Calc 40.84, Est GFR (MDRD) Af Amer 59 L, Est GFR (MDRD) Non-Af 49 L, BUN/Creatinine Ratio 18.8, Glucose 184 H, Calcium 8.9 09/22/22 11:00: Phosphorus 4.7, Magnesium 2.2 09/22/22 12:06: POC Glucose 163 H 09/22/22 13:10: POC Glucose 134 H 09/22/22 14:07: POC Glucose 112 H 09/22/22 15:02: POC Glucose 86 09/22/22 15:15: Sodium 143, Potassium 5.1, Chloride 117 H, Carbon Dioxide 10.0 L , Anion Gap 16 H, BUN 20 H, Creatinine 1.07 H, Estim Creat Clear Calc 44.66, Est GFR (MDRD) Af Amer 66, Est GFR (MDRD) Non-Af 54 L, BUN/Creatinine Ratio 18.7, Glucose 99, Calcium 7.9 L 09/22/22 15:42: POC Glucose 59 L Medications at Discharge Home Medications labetalol 200 mg tablet 200 mg PO BID BLOOD PRESSURE 12/06/19 albuterol sulfate 90 mcg/actuation aerosol inhaler (Ventolin HFA) 2 puff inhalation Q4H PRN Wheezing 10/23/20 doxepin 25 mg capsule 25 mg PO QHS DEPRESSION/ANXIETY 10/23/20 duloxetine 60 mg capsule,delayed release (Cymbalta) 60 mg PO DAILY DEPRESSION/ANXIETY 10/23/20 multivitamin 1 tab PO DAILY HEALTH MAINTENANCE 10/23/20 fluticasone propionate 250 mcg/actuation blister powder for inhalation (Flovent Diskus) 2 inh inhalation BID ASTHMA 10/25/20 glimepiride 4 mg tablet 2 mg PO DAILY diabetes 10/25/20 insulin glargine 100 unit/mL (3 mL) subcutaneous pen (Lantus Solostar U-100 I nsulin) 12 unit subcut QPM DIABETES 10/25/20 losartan 50 mg tablet 50 mg PO BID BLOOD PRESSURE 10/25/20 tamoxifen 20 mg tablet 20 mg PO DAILY BREAST CANCER 10/25/20 albuterol sulfate 0.63 mg/3 mL solution for nebulization 0.63 mg inhalation BID ASTHMA 07/17/21 semaglutide 0.25 mg or 0.5 mg (2 mg/1.5 mL) subcutaneous pen injector (Ozempic) 0.25 mg subcut SA DIABETES 07/17/21 clobetasol-emollient 0.05 % topical cream 1 applic topical BID AFFECTED AREA 09/22/22 empagliflozin 25 mg tablet (Jardiance) 25 mg PO DAILY DIABETES 09/22/22 esomeprazole magnesium 20 mg tablet,delayed release (Nexium 24HR) 40 mg PO DAILY #30 tabs 09/23/22 potassium chloride 20 mEq tablet,extended release 40 meq PO DAILY 7 days #14 tabs 09/23/22 Physical Exam Narrative Physical exam Seen and examined. BP mildly elevated. Heart rate controlled. Patient had about 4.5 L of IV fluid. Patient still getting IV fluid. General: Alert, Oriented x3, Cooperative HEENT: Atraumatic, PERRLA, EOMI, Normocephalic Oral: Oral mucosa No Gingival or Mucosal Lesions/ Ulcerations Neck: Supple, No JVD, Negative Carotid Bruits Chest/lungs: Air entry diminished in bilateral lung bases. No crepitation/rhonchi. No acute rib tenderness or chest wall tenderness. Cardiovascular: Sinus rhythm, normal S1, Normal S2, No murmurs Abdomen: Bowel Sounds sluggish, Soft, Non Tender, Non-Distended : Urine dark-colored. No renal angle tenderness. No suprapubic tenderness. Extremities: No edema, Capillary Refill Less than 3 Seconds Skin: No rashes, No breakdown Musculoskeletal: Mild bony tenderness in lower legs. ROM restricted. Neurological: Cranial nerves II-XII grossly intact, DTR 2+/4 and Symmetrical, Neuro grossly intact Psych/Mental Status: Flat affect. Weight / BMI Weight Weight: 169 lb 12.095 oz Body Mass Index (BMI) 28.5 ABG / Lab / Microbiology Data Result Diagrams: 09/23/22 03:56 09/23/22 03:56 Laboratory: Laboratory Results - last 24 hr 09/22/22 09:45: Sodium 144, Potassium 4.3, Chloride 108 H, Carbon Dioxide 11.0 L , Anion Gap 25 H, BUN 22 H, Creatinine 1.08 H, Estim Creat Clear Calc 44.25, Est GFR (MDRD) Af Amer 65, Est GFR (MDRD) Non-Af 54 L, BUN/Creatinine Ratio 20.4 H, Glucose 178 H, Calcium 8.3 L 09/22/22 09:45: Acetone Level MODERATE H 09/22/22 09:45: Serum Osmolality 318 H 09/22/22 10:34: POC Glucose 183 H 09/22/22 11:00: Sodium 143, Potassium 4.5, Chloride 111 H, Carbon Dioxide 10.0 L , Anion Gap 22 H, BUN 22 H, Creatinine 1.17 H, Estim Creat Clear Calc 40.84, Est GFR (MDRD) Af Amer 59 L, Est GFR (MDRD) Non-Af 49 L, BUN/Creatinine Ratio 18.8, Glucose 184 H, Calcium 8.9 09/22/22 11:00: Phosphorus 4.7, Magnesium 2.2 09/22/22 12:06: POC Glucose 163 H 09/22/22 13:10: POC Glucose 134 H 09/22/22 14:07: POC Glucose 112 H 09/22/22 15:02: POC Glucose 86 09/22/22 15:15: Sodium 143, Potassium 5.1, Chloride 117 H, Carbon Dioxide 10.0 L , Anion Gap 16 H, BUN 20 H, Creatinine 1.07 H, Estim Creat Clear Calc 44.66, Est GFR (MDRD) Af Amer 66, Est GFR (MDRD) Non-Af 54 L, BUN/Creatinine Ratio 18.7, Glucose 99, Calcium 7.9 L 09/22/22 15:42: POC Glucose 59 L 09/22/22 16:05: POC Glucose 159 H 09/22/22 17:01: POC Glucose 169 H 09/22/22 18:14: POC Glucose 195 H 09/22/22 18:52: POC Glucose 231 H 09/22/22 19:00: Sodium 143, Potassium 4.1, Chloride 117 H, Carbon Dioxide 14.0 L , Anion Gap 12, BUN 20 H, Creatinine 1.12 H, Estim Creat Clear Calc 42.67, Est GFR (MDRD) Af Amer 63, Est GFR (MDRD) Non-Af 52 L, BUN/Creatinine Ratio 17.9, Glucose 227 H, Calcium 8.0 L 09/22/22 20:06: POC Glucose 188 H 09/22/22 21:18: POC Glucose 175 H 09/22/22 22:05: POC Glucose 145 H 09/22/22 23:02: Sodium 145, Potassium 3.4 L, Chloride 118 H, Carbon Dioxide 18.0 L, Anion Gap 9, BUN 18, Creatinine 1.10 H, Estim Creat Clear Calc 43.44, Est GFR (MDRD) Af Amer 64, Est GFR (MDRD) Non-Af 53 L, BUN/Creatinine Ratio 16.4, Glucose 149 H, Calcium 8.1 L 09/22/22 23:10: POC Glucose 128 H 09/23/22 01:23: POC Glucose 157 H 09/23/22 03:56: WBC 11.2 H, RBC 3.86 L, Hgb 12.2, Hct 39.2, MCV 101.6 H D, MCH 31.6, MCHC 31.1 L, RDW Std Deviation 49.5 H, RDW Coeff of Hermilo 13.2, Plt Count 147 L, MPV 9.1, Immature Gran % (Auto) 0.800, Neut % (Auto) 69.6, Lymph % (Auto) 21.9, [place] % (Auto) 7.2, Eos % (Auto) 0.1, Baso % (Auto) 0.4, Absolute Neuts (auto) 7.8 H, Absolute Lymphs (auto) 2.46, Nucleated RBC % 0 09/23/22 03:56: TSH 0.35 L 09/23/22 03:56: Hemoglobin A1c 6.8 H 09/23/22 03:56: Sodium 141, Potassium 3.5, Chloride 116 H, Carbon Dioxide 14.0 L , Anion Gap 11, BUN 16, Creatinine 1.08 H, Estim Creat Clear Calc 44.25, Est GFR (MDRD) Af Amer 65, Est GFR (MDRD) Non-Af 54 L, BUN/Creatinine Ratio 14.8, Glucose 153 H, Calcium 8.3 L 09/23/22 07:53: POC Glucose 134 H Microbiology: Microbiology 09/22/22 06:10 Nasal Secretion SARS-CoV-2 & FLU Antigen (Rapid) - Final ABG: ABG 09/22/22 10:00 Specimen Type ALIE VBG pH 7.15 L* VBG pO2 58 H VBG HCO3 9 L VBG Total CO2 10 L VBG O2 Sat (Calc) 82 H VBG Base Excess -19 L POC Mix VBG pCO2 Pt Tmp 27.0 L Crit Call To/Read Back Yes D/C Instructions Discharge Diet: 1800 Calorie Control Diet Weight Bearing Status: Weight bearing as tolerated Call your doctor if you observe: Fever of 101 or Higher, Coldness, Increased Pa in, Numbness or Tingling, Change in Color, Inability to urinate, Inability to have a bowel movement, Using more than 1 pad per hour, Shortness of breath, Dizziness, Fainting spells, Swelling in the ankles, Chest pain, Prolonged hiccupping, Increased palpitations (irregular heartbeat), Calf discomfort and Uncontrolled pain Meaningful Use Info Meaningful Use Diagnoses (Choose all that apply): None applicable Discharge Plan Admission Admit Date/Time: 09/22/22 11:00 Primary Reason for Your Visit: DKA Attending Provider: Michelet Tariq Primary Care Provider: Yon Anton Discharge Orders/Prescriptions Prescriptions: New potassium chloride 20 mEq tablet extended release 40 meq PO DAILY 7 Days Qty: 14 0RF Continued tamoxifen 20 mg tablet 20 mg PO DAILY Flovent Diskus 250 mcg/actuation blister with device 2 inh INHALATION BID losartan 50 mg tablet 50 mg PO BID albuterol sulfate [Ventolin HFA] 90 mcg/actuation HFA aerosol inhaler 2 puff INHALATION Q4H PRN (Reason: Wheezing) duloxetine [Cymbalta] 60 mg capsule,delayed release(DR/EC) 60 mg PO DAILY doxepin 25 mg capsule 25 mg PO QHS multivitamin Tablet 1 tab PO DAILY Lantus Solostar U-100 Insulin 100 unit/mL (3 mL) insulin pen 12 unit SC QPM labetalol 200 MG tablet 200 mg PO BID albuterol sulfate 0.63 mg/3 mL Solution For Nebulization 0.63 mg INHALATION BID Ozempic 0.25 mg or 0.5 mg(2 mg/1.5 mL) pen injector 0.25 mg SUBCUT SA clobetasol-emollient 0.05 % cream 1 applic TOPICAL BID Changed esomeprazole magnesium [Nexium 24HR] 20 mg tablet,delayed release (DR/EC) 40 mg PO DAILY Qty: 30 0RF Held glimepiride 4 mg tablet 2 mg PO DAILY Hold Instructions: Hold for 5 days. Jardiance 25 mg tablet 25 mg PO DAILY Hold Instructions: Hold for 5 days. Referrals / Follow Up: Yon Anton MD [Primary Care Provider] - Within 2 Weeks Disposition Disposition (needs filled in before D/C Order can be placed): Home, Self Care Charges/Coding Addendum Addendum: Patient wants to go home as her father is near . He is under home with hospice care as per the hospice nurse few hours left. Patient is discharged on hospice and request. Patient was admitted as inpatient but was discharged because of sooner recovery than expected at time of admission. Visit Charges Inpatient E&M: 57457 Disch Hosp >30min
--- NOTE | 2022-09-23 10:50 | CASEMGMT ---
RN CM Face to Face with patient for initial transition planning/care coordination assessment. RN CM introduced self and role at [facility]. Patient lying in bed, alert and oriented. Patient willing to participate in assessment and is able to answer all questions appropriately. Care providers, pharmacy, and demographics verified. Patient wishes to discharge home, denies need for home health at this time. Patient states she has no further needs or concerns at this time. CM to follow for discharge planning needs that may arise. PCP: Desean, encouraged patient to discuss endocrinology referral with PCP Specialists: Uche onclinn Preferred Pharmacy: [facility] Insurance: [employer] [facility] Prescription Benefit: yes Living Will/HPOA: none LNOK: Living Arrangements: Patient lives with in a 2 story home. Patient states she is independent and able to ambulate stairs. Transportation: self, DME/HHC: Patient states she has glucometer with supplies and insulin and supplies at home. No previous HHC or SNF Disposition Plan: Patient to discharge home with family support and follow-up plans in place. Mary Beth HUTCHINS, RN, CM
== END 2022-09-23 11:15 | disposition home or self-care (01) | DRG 639 ==
LOC: ED 07:09 → ICU 11:15
PROVIDERS: Emergency Medicine; Admitting Provider Internal Medicine; Emergency Provider Emergency Medicine; PCP Family Medicine; Visit Provider Internal Medicine
DX: E11.10 Type 2 diabetes mellitus with ketoacidosis without coma (principal); E78.2 Mixed hyperlipidemia; Z79.4 Long term (current) use of insulin; I10 Essential (primary) hypertension; I16.0 Hypertensive urgency; J45.20 Mild intermittent asthma, uncomplicated; F41.9 Anxiety disorder, unspecified; Z79.84 Long term (current) use of oral hypoglycemic drugs; Z79.899 Other long term (current) drug therapy; Z85.3 Personal history of malignant neoplasm of breast; Z92.3 Personal history of irradiation
CPT/HCPCS: 36415; 71046; 74177; 80048; 80053; 81001; 82009; 82803; 82962; 83036; 83605; 83690; 83735; 83930; 84100; 84443; 84484; 85025; 87040; 87077; 87086; 87088; 87186; 87428; 93005; 94640; 94762; 99285; J7030; Q9967; A4216; J2405; J7799

== ENCOUNTER → 2022-10-06 | Outpatient (CLI) | payer MEDICARE, SELFPAY ==
[2022-10-06 18:06] LABS: Anion Gap 11 (5-15); BUN 12 mg/dL (7-18); Chloride 108 mmol/L (98-107); EST Glomerular Filtration Rate 59 mL/min (>60); Est Glom Filt Rate - Afr Amer 71 mL/min (>60); Glucose 129 mg/dL (74-106); Potassium 4.2 mmol/L (3.5-5.1); Sodium Level 140 mmol/L (136-145)
== END | disposition home or self-care (01) ==
LOC: MFPLAB 14:30
PROVIDERS: PCP Family Medicine; Visit Provider Nurse Practitioner Family
DX: E11.22 Type 2 diabetes mellitus with diabetic chronic kidney disease (principal); N18.9 Chronic kidney disease, unspecified
CPT/HCPCS: 36415; 80048

== ENCOUNTER → 2022-10-20 | Outpatient (CLI) | payer MEDICARE, SELFPAY ==
[2022-10-20 17:42] LABS: Absolute Lymphocyte Count 2.11 X10^3/uL (0.83-4.51); Absolute Neutrophil Count 4.3 X10^3/uL (2.0-7.7); Basophil# 0.07 X10^3/uL; Eosinophil# 0.34 X10^3/uL; Eosinophils% 4.7 % (0-5); Hematocrit 40.8 % (37-47); Hemoglobin 13.1 g/dL (12.0-15.0); Lymphocyte # 2.11 X10^3/ul (0.83-4.51); Lymphocyte % 28.9 % (19-41); Mean Corp Hgb Conc 32.1 g/dL (32-36); Mean Corpuscular Volume 96.5 fL (81-99); Mean Platelet Vol. 9.9 fl (6.2-12.0); Monocyte# 0.46 X10^3/uL; Monocyte% 6.3 % (0-10); NRBC Flagged by Analyzer 0 % (0-5); Neutrophil # 4.28 X10^3/uL (2.7-7.7); Neutrophil % 58.7 % (47-70); Platelet Count 210 K/mm3 (150-450); RBC Distribution Width CV 13.1 % (11.6-14.6); RBC Distribution Width SD 46.8 fl (35.1-43.9); Red Blood Count 4.23 M/mm3 (4.2-5.4); White Blood Count 7.3 K/mm3 (4.4-11.0)
[2022-10-20 18:46] LABS: ALB/GLOB Ratio 1.1 RATIO (0.9-2.4); AST(SGOT) 17 U/L (15-37); Alanine Aminotransfer ALT/SGPT 28 U/L (13-56); Albumin, Serum 3.5 g/dL (3.2-5.0); Alkaline Phosphatase 81 U/L (45-117); Anion Gap 9 (5-15); BUN 16 mg/dL (7-18); BUN/Creat Ratio 16.3 RATIO (10-20); Calcium,Total 9.2 mg/dL (8.5-10.1); Chloride 108 mmol/L (98-107); Creatinine, Serum 0.98 mg/dL (0.55-1.02); EST Glomerular Filtration Rate 60 mL/min (>60); Est Glom Filt Rate - Afr Amer 73 mL/min (>60); Globulin 3.1 g/dL (2.2-4.2); Glucose 153 mg/dL (74-106); Potassium 3.7 mmol/L (3.5-5.1); Protein, Total 6.6 g/dL (6.4-8.2); Sodium Level 139 mmol/L (136-145); Thyroid Stim Hormone (TSH) 1.73 uIU/mL (0.358-3.74)
== END | disposition home or self-care (01) ==
LOC: MFPLAB 14:34
PROVIDERS: PCP Family Medicine; Visit Provider Nurse Practitioner Family
DX: R53.83 Other fatigue (principal)
CPT/HCPCS: 36415; 80053; 84443; 85025

== ENCOUNTER → 2022-11-13 | Outpatient (CLI) | payer MEDICARE, SELFPAY ==
[2022-11-13 17:51] LABS: Absolute Lymphocyte Count 2.38 X10^3/uL (0.83-4.51); Absolute Neutrophil Count 4.3 X10^3/uL (2.0-7.7); Basophil# 0.07 X10^3/uL; Basophil% 0.9 % (0-1); Eosinophil# 0.34 X10^3/uL; Eosinophils% 4.4 % (0-5); Hematocrit 41.4 % (37-47); Hemoglobin 13.3 g/dL (12.0-15.0); Lymphocyte # 2.38 X10^3/ul (0.83-4.51); Lymphocyte % 30.8 % (19-41); Mean Corp Hgb Conc 32.1 g/dL (32-36); Mean Corpuscular Hgb 31.2 pg (27.0-32.0); Mean Corpuscular Volume 97.2 fL (81-99); Mean Platelet Vol. 9.8 fl (6.2-12.0); Monocyte# 0.59 X10^3/uL; Monocyte% 7.6 % (0-10); NRBC Flagged by Analyzer 0 % (0-5); Neutrophil # 4.32 X10^3/uL (2.7-7.7); Neutrophil % 55.9 % (47-70); Platelet Count 212 K/mm3 (150-450); RBC Distribution Width CV 12.5 % (11.6-14.6); RBC Distribution Width SD 45.1 fl (35.1-43.9); Red Blood Count 4.26 M/mm3 (4.2-5.4); White Blood Count 7.7 K/mm3 (4.4-11.0)
[2022-11-13 18:11] LABS: Hemoglobin A1c 6.6 % (3.8-5.6)
[2022-11-13 18:14] LABS: Vitamin B12 480 pg/mL (211-911)
[2022-11-13 18:24] LABS: ALB/GLOB Ratio 1.2 RATIO (0.9-2.4); AST(SGOT) 23 U/L (15-37); Alanine Aminotransfer ALT/SGPT 35 U/L (13-56); Albumin, Serum 3.7 g/dL (3.2-5.0); Alkaline Phosphatase 84 U/L (45-117); Anion Gap 6 (5-15); BUN 17 mg/dL (7-18); BUN/Creat Ratio 18.5 RATIO (10-20); Calcium,Total 9.4 mg/dL (8.5-10.1); Chloride 108 mmol/L (98-107); Creatinine, Serum 0.92 mg/dL (0.55-1.02); EST Glomerular Filtration Rate 65 mL/min (>60); Est Glom Filt Rate - Afr Amer 78 mL/min (>60); Globulin 3.2 g/dL (2.2-4.2); Glucose 164 mg/dL (74-106); Magnesium 2.2 mg/dL (1.6-2.6); Potassium 3.8 mmol/L (3.5-5.1); Protein, Total 6.9 g/dL (6.4-8.2); Sodium Level 142 mmol/L (136-145); Thyroid Stim Hormone (TSH) 0.89 uIU/mL (0.358-3.74)
== END | disposition home or self-care (01) ==
LOC: MFPLAB 15:56
PROVIDERS: PCP Family Medicine; Referring Provider Family Medicine; Visit Provider Family Medicine
DX: E11.22 Type 2 diabetes mellitus with diabetic chronic kidney disease (principal); N18.1 Chronic kidney disease, stage 1; E53.8 Deficiency of other specified B group vitamins
CPT/HCPCS: 36415; 80053; 82607; 82746; 83036; 83735; 84443; 85025

== ENCOUNTER → 2022-11-26 | Outpatient (CLI) | payer MEDICARE, SELFPAY | END | disposition home or self-care (01) | PROVIDERS: PCP Family Medicine; Visit Provider Nurse Practitioner Family | DX: R35.0 Frequency of micturition (principal) | CPT/HCPCS: 87086; 87088; 87186 ==

== ENCOUNTER → 2023-04-06 | Outpatient (CLI) | payer MEDICARE, SELFPAY ==
--- NOTE | 2023-04-06 | VUL_PTH ---
PATIENT: STEVE LONG LOC: [facility] U#:[id number] AGE/SX: 68/F ROOM: RE04/06/[address]: Dr. Jennifer Juares DO : 1955 BED: DIS: 04/06/2023 SPEC #: [id number] RECD: 04/06/23 17:24 STATUS: NICKOLAS RELor #: [id number] LISANDRO: 04/06/23 00:[address]: Jennifer Juares DEPT: SURGICAL PATHOLOGY RECD BY: Woody Dai ENTERED: 04/07/23 08:55 SP TYPE: VULVA BX OTHR DR: Dr. Yon Anton MD Tissues: Vulva, NOS Procedures: Special Stain Group I Surgery Specimen Level IV GMS Stain (control) HEADER OPERATION: Vulvar biopsy PRE-OP DIAGNOSIS: Lichen sclerosus L90.0 TISSUE SUBMITTED: Vulvar biopsy MICROSCOPIC DIAGNOSIS Vulva, biopsy: Fragments of squamous mucosa with acanthosis, parakeratosis and mild dermal chronic inflammation. Negative for dysplasia or malignancy. See comment. LUL:sveta 04/08/2023 COMMENT Changes consistent with lichen sclerosus are not seen. Special stain for fungi is positive for organisms (yeast and hyphae) in superficial epithelial layers; matched control is appropriate. Correlation with clinical findings and appropriate follow up are necessary. Case has been reviewed in consultation with Dr. Otero who concurs with the above diagnosis. IDC:AM MICROSCOPIC DESCRIPTION Slides are reviewed. GROSS DESCRIPTION Received in fixative is one container labeled with the patient's name and designated vulvar biopsy. The specimen consists of two irregular fragments of zazueta soft tissue that in aggregate measure 0.4 x 0.1 x 0.1 cm. The specimen is totally submitted in one cassette. / LUL:sveta 04/07/2023 TC:5 CPT: 99484, 62488
== END | disposition home or self-care (01) ==
PROVIDERS: PCP Family Medicine; Visit Provider Student in an Organized Health Care Education/Training Program
DX: L90.0 Lichen sclerosus et atrophicus (principal); N76.2 Acute vulvitis
CPT/HCPCS: 88305; 88312

== ENCOUNTER → 2024-01-18 | Outpatient (CLI) | payer MEDICARE, SELFPAY ==
[2024-01-18 17:32] LABS: Absolute Lymphocyte Count 2.31 X10^3/uL (0.83-4.51); Absolute Neutrophil Count 5.1 X10^3/uL (2.0-7.7); Basophil# 0.07 X10^3/uL; Basophil% 0.8 % (0-1); Eosinophil# 0.35 X10^3/uL; Eosinophils% 4.2 % (0-5); Hemoglobin 13.6 g/dL (12.0-15.0); Lymphocyte # 2.31 X10^3/ul (0.83-4.51); Mean Corp Hgb Conc 33.2 g/dL (32-36); Mean Corpuscular Hgb 31.1 pg (27.0-32.0); Mean Corpuscular Volume 93.8 fL (81-99); Mean Platelet Vol. 10.3 fl (6.2-12.0); Monocyte# 0.44 X10^3/uL; Monocyte% 5.3 % (0-10); NRBC Flagged by Analyzer 0 % (0-5); Neutrophil # 5.05 X10^3/uL (2.7-7.7); Neutrophil % 61.3 % (47-70); Platelet Count 207 K/mm3 (150-450); RBC Distribution Width CV 12.6 % (11.6-14.6); RBC Distribution Width SD 43.8 fl (35.1-43.9); Red Blood Count 4.37 M/mm3 (4.2-5.4); White Blood Count 8.3 K/mm3 (4.4-11.0)
[2024-01-18 17:45] LABS: Vitamin B12 500 pg/mL (211-911); Vitamin D,25 Hydroxy 43.6 ng/mL
[2024-01-18 17:51] LABS: Hemoglobin A1c 6.6 % (3.8-5.6)
[2024-01-18 17:54] LABS: Erythrocyte Sedimentation Rate 4 mm/hr (0-30)
[2024-01-18 18:46] LABS: ALB/GLOB Ratio 1.2 RATIO (0.9-2.4); AST(SGOT) 31 U/L (15-37); Alanine Aminotransfer ALT/SGPT 39 U/L (13-56); Albumin, Serum 3.7 g/dL (3.2-5.0); Alkaline Phosphatase 83 U/L (45-117); Anion Gap 6 (5-15); BUN 13 mg/dL (7-18); BUN/Creat Ratio 14.1 RATIO (10-20); Calcium,Total 9.3 mg/dL (8.5-10.1); Chloride 109 mmol/L (98-107); Cholesterol 205 mg/dL (200); Creatinine, Serum 0.92 mg/dL (0.55-1.02); EST Glomerular Filtration Rate 64 mL/min (>60); Est Glom Filt Rate - Afr Amer 78 mL/min (>60); Ferritin 68 ng/mL (8-252); Globulin 3.2 g/dL (2.2-4.2); Glucose 118 mg/dL (74-106); High Density Lipoprotein 45 mg/dL; Potassium 3.7 mmol/L (3.5-5.1); Protein, Total 6.9 g/dL (6.4-8.2); Sodium Level 139 mmol/L (136-145); Thyroid Stim Hormone (TSH) 1.41 uIU/mL (0.358-3.74)
[2024-01-20 13:08] LABS: PROEL- A/G Ratio 1.5 (0.7-1.7); PROEL- Albumin 3.9 g/dL (2.9-4.4); PROEL- Alpha-1 Globulin 0.3 g/dL (0.0-0.4); PROEL- Alpha-2 Globulin 0.6 g/dL (0.4-1.0); PROEL- Beta Globulin 0.9 g/dL (0.7-1.3); PROEL- Gamma Globulin 0.8 g/dL (0.4-1.8); PROEL- Globulin, Total 2.6 g/dL (2.2-3.9); PROEL- TOTAL PROTEIN 6.5 g/dL (6.0-8.5); PROEL-M-Spike Not Observed g/dL (Not Observed)
== END | disposition home or self-care (01) ==
LOC: MFPLAB 14:50
PROVIDERS: PCP Family Medicine; Visit Provider Family Medicine
DX: R53.83 Other fatigue (principal); E11.22 Type 2 diabetes mellitus with diabetic chronic kidney disease; N18.9 Chronic kidney disease, unspecified; E53.8 Deficiency of other specified B group vitamins; E78.5 Hyperlipidemia, unspecified; M19.90 Unspecified osteoarthritis, unspecified site
CPT/HCPCS: 36415; 80053; 82306; 82465; 82607; 82728; 82746; 83036; 83718; 84165; 84443; 85025; 85652

== ENCOUNTER → 2024-04-25 | Outpatient (CLI) | payer MEDICARE, SELFPAY ==
[2024-04-25 17:47] LABS: Absolute Neutrophil Count 4.8 X10^3/uL (2.0-7.7); Basophil# 0.07 X10^3/uL; Basophil% 0.8 % (0-1); Eosinophil# 0.29 X10^3/uL; Eosinophils% 3.5 % (0-5); Hematocrit 45.6 % (37-47); Hemoglobin 14.8 g/dL (12.0-15.0); Lymphocyte % 31.1 % (19-41); Mean Corp Hgb Conc 32.5 g/dL (32-36); Mean Corpuscular Hgb 30.8 pg (27.0-32.0); Mean Corpuscular Volume 94.8 fL (81-99); Mean Platelet Vol. 9.9 fl (6.2-12.0); Monocyte# 0.55 X10^3/uL; Monocyte% 6.6 % (0-10); NRBC Flagged by Analyzer 0 % (0-5); Neutrophil # 4.81 X10^3/uL (2.7-7.7); Neutrophil % 57.6 % (47-70); Platelet Count 209 K/mm3 (150-450); RBC Distribution Width CV 12.4 % (11.6-14.6); RBC Distribution Width SD 43.6 fl (35.1-43.9); Red Blood Count 4.81 M/mm3 (4.2-5.4); White Blood Count 8.4 K/mm3 (4.4-11.0)
[2024-04-25 18:06] LABS: Erythrocyte Sedimentation Rate 2 mm/hr (0-30)
[2024-04-25 18:09] LABS: Vitamin B12 397 pg/mL (211-911); Vitamin D,25 Hydroxy 54.8 ng/mL
[2024-04-25 18:14] LABS: Hemoglobin A1c 7.5 % (3.8-5.6)
[2024-04-25 18:47] LABS: Thyroid Stim Hormone (TSH) 1.37 uIU/mL (0.358-3.74)
[2024-04-27 15:08] LABS: PROEL- A/G Ratio 1.5 (0.7-1.7); PROEL- Alpha-1 Globulin 0.3 g/dL (0.0-0.4); PROEL- Alpha-2 Globulin 0.7 g/dL (0.4-1.0); PROEL- Gamma Globulin 0.8 g/dL (0.4-1.8); PROEL- Globulin, Total 2.7 g/dL (2.2-3.9); PROEL- TOTAL PROTEIN 6.7 g/dL (6.0-8.5); PROEL-M-Spike Not Observed g/dL (Not Observed)
== END | disposition home or self-care (01) ==
LOC: MFPLAB 15:05
PROVIDERS: PCP Family Medicine; Visit Provider Family Medicine
DX: R53.83 Other fatigue (principal); E11.22 Type 2 diabetes mellitus with diabetic chronic kidney disease; E53.8 Deficiency of other specified B group vitamins; N18.9 Chronic kidney disease, unspecified
CPT/HCPCS: 36415; 82306; 82607; 82746; 83036; 84165; 84443; 85025; 85652

== ENCOUNTER → 2024-06-27 | Outpatient (CLI) | payer MEDICARE, SELFPAY | END | disposition home or self-care (01) | PROVIDERS: PCP Family Medicine; Referring Provider Internal Medicine Cardiovascular Disease; Visit Provider Internal Medicine Cardiovascular Disease | DX: R06.09 Other forms of dyspnea (principal) | CPT/HCPCS: 36415; 83880 ==

== ENCOUNTER → 2024-07-11 | Outpatient (CLI) | payer MEDICARE, SELFPAY ==
--- NOTE | 2024-07-11 13:36 | STRESSREP ---
Stress Test Report Exercise stress test. 69-year-old lady with a history of dyspnea on exertion Stress protocol: Resting EKG demonstrates normal sinus rhythm with a rate of 91 bpm resting blood pressure is 128/72 mmHg. resting pulse oximetry is noted to be 97%. The patient exercised according to the regular Romero protocol for a total duration of 4 minutes and 22 seconds attaining a maximum heart rate of 164 bpm which was 107% of maximum predicted heart rate; the maximum workload was 7 metabolic equivalents. At rest there were no ST or T wave changes noted to suggest ischemia and at peak exercise upsloping ST changes only were noted which did not meet the criteria for ischemia. The patient experienced mild shortness of breath and moderate shortness of breath at low end peak exertion respectively with the oximetry saturation going down from 97% to a lesli of 94%. During recovery oxygen saturation improved back to 98%. No clinical angina was noted the test was terminated due to the target heart rate being achieved/fatigue. The peak blood pressure was 174/74 mmHg. Rate-pressure product was 28,100. Conclusion: Exercise stress test with no EKG changes for ischemia at a moderate workload Moderate functional aerobic impairment Oximetry saturation ranging between 94% at peak exercise and 98% postexercise rest
== END | disposition home or self-care (01) ==
LOC: CVS 12:31
PROVIDERS: PCP Family Medicine; Referring Provider Internal Medicine Cardiovascular Disease; Visit Provider Internal Medicine Cardiovascular Disease
DX: R06.09 Other forms of dyspnea (principal)
CPT/HCPCS: 93017

== ENCOUNTER → 2024-10-21 | Outpatient (CLI) | payer MEDICARE, SELFPAY ==
[2024-10-21 13:10] LABS: AST(SGOT) 24 U/L (15-37); Alanine Aminotransfer ALT/SGPT 29 U/L (13-56); Albumin, Serum 3.8 g/dL (3.2-5.0); Alkaline Phosphatase 83 U/L (45-117); Anion Gap 10 (5-15); BUN 15 mg/dL (7-18); BUN/Creat Ratio 14.7 RATIO (10-20); Calcium,Total 9.4 mg/dL (8.5-10.1); Chloride 106 mmol/L (98-107); Creatinine, Serum 1.02 mg/dL (0.55-1.02); EST Glomerular Filtration Rate 57 mL/min (>60); Est Glom Filt Rate - Afr Amer 69 mL/min (>60); Globulin 3.7 g/dL (2.2-4.2); Glucose 148 mg/dL (74-106); Potassium 3.9 mmol/L (3.5-5.1); Protein, Total 7.5 g/dL (6.4-8.2); Sodium Level 139 mmol/L (136-145)
[2024-10-23 20:01] LABS: Hemoglobin A1c 7.5 % (3.8-5.6)
== END | disposition home or self-care (01) ==
LOC: MTLAB 10:29
PROVIDERS: PCP Family Medicine; Referring Provider Family Medicine; Visit Provider Family Medicine
DX: E11.22 Type 2 diabetes mellitus with diabetic chronic kidney disease (principal); N18.9 Chronic kidney disease, unspecified
CPT/HCPCS: 36415; 80053; 83036; 84443

== ENCOUNTER → 2025-02-16 | Outpatient (CLI) | payer MEDICARE, SELFPAY ==
--- NOTE | 2025-02-16 11:16 | BD_ITS ---
PROCEDURE: DEXA BONE DENSITY STUDY 02/16/2025 REASON FOR EXAM: F, age 70 y/o . TECHNIQUE: DXA scan of sites with data reported below. Scanner utilized: [employer] W. [facility]ENCE [facility]KS[facility] COMPARISON: None FINDINGS: BMD and T-SCORES Lumbar spine: 1.081 g/cm2, T-score 0.3 Levels: L1, L3-L4 Left femoral neck: 0.869 g/cm2, T-score 0.2 Femoral neck comparison data not recommended for monitoring change. Left total hip: 1.041 g/cm2, T-score 0.8 Right femoral neck: 0.940 g/cm2, T-score 0.8 Femoral neck comparison data not recommended for monitoring change. Right total hip: 1.102 g/cm2, T-score 1.3 The World Health Organization has defined the following categories based on bone density: Normal bone density: T-score equal to or greater than -1.0 Osteopenia: T-score between -1.0 and -2.5 Osteoporosis: T-score equal to or less than -2.5 BD/Dexa Bone Density Study IMPRESSION: Normal bone mineral density. Reading Location: [facility]
== END | disposition home or self-care (01) ==
LOC: OPBD 11:33
PROVIDERS: PCP Family Medicine
DX: Z13.820 Encounter for screening for osteoporosis (principal); Z78.0 Asymptomatic menopausal state
CPT/HCPCS: 77080

== ENCOUNTER → 2025-04-28 | Outpatient (CLI) | payer MEDICARE, SELFPAY ==
[2025-04-28 15:25] LABS: Hematocrit 41.5 % (37-47); Hemoglobin 13.9 g/dL (12.0-15.0); Immature Granulocytes Count 0.020 X10^3/uL (0.0-0.0); Mean Corp Hgb Conc 33.5 g/dL (32-36); Mean Corpuscular Volume 92.6 fL (81-99); Mean Platelet Vol. 10.3 fl (6.2-12.0); NRBC Flagged by Analyzer 0 % (0-5); Platelet Count 201 K/mm3 (150-450); RBC Distribution Width CV 12.4 % (11.6-14.6); RBC Distribution Width SD 42.1 fl (35.1-43.9); Red Blood Count 4.48 M/mm3 (4.2-5.4); White Blood Count 6.7 K/mm3 (4.4-11.0)
[2025-04-28 15:51] LABS: Creatinine, Urine (random) 65.00 mg/dL (28.00-217.00); Microalbumin,Random Urine 25.2 mg/L (<20 mg/L)
[2025-04-28 15:53] LABS: AST(SGOT) 30 U/L (<=31); Alanine Aminotransfer ALT/SGPT 26 U/L (<=34); Albumin, Serum 4.0 g/dL (3.4-4.8); Alkaline Phosphatase 78 U/L (35-104); Anion Gap 12 (5-15); BUN 13 mg/dL (4-19); BUN/Creat Ratio 13.9 RATIO (10-20); Calcium,Total 9.6 mg/dL (7.6-11.0); Carbon Dioxide 25.1 mmol/L (21.0-32.0); Chloride 105 mmol/L (98-108); Globulin 2.4 g/dL (2.2-4.2); Glucose 197 mg/dL (70-99); Potassium 4.0 mmol/L (3.3-5.1)
== END | disposition home or self-care (01) ==
PROVIDERS: PCP Family Medicine; Referring Provider Family Medicine; Visit Provider Family Medicine
DX: E11.22 Type 2 diabetes mellitus with diabetic chronic kidney disease (principal); N18.1 Chronic kidney disease, stage 1
CPT/HCPCS: 36415; 80053; 82043; 82570; 83036; 85025

== ENCOUNTER → 2025-05-11 | Outpatient (CLI) | payer MEDICARE, SELFPAY ==
--- NOTE | 2025-05-11 11:11 | RAD_ITS ---
PROCEDURE: LUMBAR SPINE 2 OR 3 VIEWS 05/11/2025 REASON FOR EXAM: LEG PAIN AND WEAKNESS TECHNIQUE: LUMBAR SPINE 2 OR 3 VIEWS COMPARISON: None. RAD/Lumbar Spine 2 or 3 Views IMPRESSION: At least moderate arterial calcification is seen. Degenerative changes are seen throughout the visualized lower thoracic and lumb ar spine. Lumbar levoscoliosis is centered about the L2-L3 level. Postsurgical changes including laminectomies from L3 through L4, with bilateral posterior bone graft from L3 through L5 also noted.. Disc narrowing is seen prominently from L1 through L4, with osseous reactive ch anges at each level. Posterior facet hypertrophy in the mid to lower lumbar spine also noted. No evidence of spondylolysis or spondylolisthesis. Minimal sacroiliac joint degenerative changes are noted. No acute fracture is seen. Reading Location: [place] [address]
== END | disposition home or self-care (01) ==
LOC: MTRAD 11:09
PROVIDERS: PCP Family Medicine; Referring Provider Family Medicine; Visit Provider Family Medicine
DX: I73.9 Peripheral vascular disease, unspecified (principal); M79.606 Pain in leg, unspecified; R53.1 Weakness
CPT/HCPCS: 72100

== ENCOUNTER → 2025-05-25 | Outpatient (CLI) | payer MEDICARE, SELFPAY ==
--- NOTE | 2025-05-25 12:51 | ART_ITS ---
Reason For Study Reason For Study: Claudication Procedure A bilateral lower extremity continuous wave Doppler with analog waveform analysis,segmental pressures,and ankle brachial indexes with exercise. Left Segmental Pressures Left high thigh = >254mmHg. Left low thigh = 154mmHg. Left calf = 134mmHg. Left posterior tibial artery = 104mmHg. Left dorsalis pedis artery = 110mmHg. Left digit = 33 mmHg. The left dorsalis pedis waveforms are biphasic. The left posterior tibial artery waveforms are biphasic. Right Segmental Pressures Right brachial= 169mmHg. Right posterior tibial artery = 192mmHg. Right dorsalis pedis artery = 196mmHg. Right digit = 109 mmHg. The right dorsalis pedis waveforms are triphasic. The right posterior tibial artery waveforms are triphasic. Indices The right ankle brachial index by the dorsalis pedis is 1.16. The right ankle brachial index by the posterior tibial artery is 1.14. The right digital-brachial index is 0.64. The right post exercise ankle brachial index is 0.77. The left ankle brachial index by the dorsalis pedis is 0.65. The left ankle brachial index by the posterior tibial artery is 0.62. The left digital-brachial index is 0.20. The left post exercise ankle brachial index is 0.30. VL/Lower Ext Art Exam w/ Exercise Interpretation Summary Right SAMUEL 1.16, normal. Doppler/PVR waveforms of the right leg normal at rest. TBI diminished, pedal/digit disease vs spasm. Right lower extremity with abnormal response to exercise and post exercise SAMUEL in the moderate category. Left SAMUEL 0.65, moderate arterial insufficiency. Doppler/PVR waveforms and segme ntal pressures reveal distal SFA/popliteal disease. Left lower extremity with abnormal response to exercise and post exercise SAMUEL i n the severe category. Ordering Physician: Yon Anton Referring Physician: YON ANTON MD Performed By: Mary Beth Neal RVT and Student
== END | disposition home or self-care (01) ==
LOC: CVS 12:50
PROVIDERS: PCP Family Medicine; Referring Provider Family Medicine; Visit Provider Family Medicine
DX: I73.9 Peripheral vascular disease, unspecified (principal)
CPT/HCPCS: 93924

== ENCOUNTER → 2025-08-04 | Outpatient (CLI) | payer MEDICARE, SELFPAY ==
[2025-08-04 10:15] LABS: Hematocrit 41.7 % (37-47); Hemoglobin 13.9 g/dL (12.0-15.0); Immature Granulocytes Count 0.010 X10^3/uL (0.0-0.0); Mean Corp Hgb Conc 33.3 g/dL (32-36); Mean Corpuscular Volume 92.1 fL (81-99); Mean Platelet Vol. 9.5 fl (6.2-12.0); NRBC Flagged by Analyzer 0 % (0-5); Platelet Count 186 K/mm3 (150-450); RBC Distribution Width CV 12.5 % (11.6-14.6); RBC Distribution Width SD 42.2 fl (35.1-43.9); Red Blood Count 4.53 M/mm3 (4.2-5.4); White Blood Count 6.5 K/mm3 (4.4-11.0)
[2025-08-04 10:49] LABS: AST(SGOT) 36 U/L (<=31); Alanine Aminotransfer ALT/SGPT 46 U/L (<=34); Albumin, Serum 4.1 g/dL (3.4-4.8); Alkaline Phosphatase 78 U/L (35-104); Anion Gap 11 (5-15); BUN 17 mg/dL (4-19); BUN/Creat Ratio 17.2 RATIO (10-20); Calcium,Total 9.3 mg/dL (7.6-11.0); Carbon Dioxide 25.0 mmol/L (21.0-32.0); Chloride 106 mmol/L (98-108); Globulin 2.5 g/dL (2.2-4.2); Glucose 146 mg/dL (70-99); Potassium 3.9 mmol/L (3.3-5.1)
== END | disposition home or self-care (01) ==
LOC: MFPLAB 08:35
PROVIDERS: PCP Family Medicine; Visit Provider Family Medicine
DX: E11.22 Type 2 diabetes mellitus with diabetic chronic kidney disease (principal); N18.1 Chronic kidney disease, stage 1
CPT/HCPCS: 36415; 80053; 83036; 85025

== ENCOUNTER → 2025-08-07 | Outpatient (CLI) | payer MEDICARE, SELFPAY ==
--- NOTE | 2025-08-07 16:10 | RAD_ITS ---
PROCEDURE: CHEST PA AND LATERAL 08/07/2025 REASON FOR EXAM: BREAST TENDERNESS TECHNIQUE: Procedure Code: RADCXR Modality: DX Procedure: CHEST PA AND LATERAL FINDINGS: No focal consolidation. No pleural effusion or pneumothorax. Cardiac silhouette is within normal limits. No acute fractures. RAD/Chest PA and Lateral IMPRESSION: No focal consolidations. Reading Location: [id number]
== END | disposition home or self-care (01) ==
LOC: MTRAD 15:56
PROVIDERS: PCP Family Medicine; Referring Provider Family Medicine; Visit Provider Family Medicine
DX: N64.4 Mastodynia (principal)
CPT/HCPCS: 71046

== ENCOUNTER → 2025-08-28 | Outpatient (CLI) | payer MEDICARE, SELFPAY ==
[2025-08-28 12:48] LABS: Magnesium 2.6 mg/dL (1.5-2.2); Pro- Brain NATRIURETIC PEPTIDE 77 pg/mL (<=900)
== END | disposition home or self-care (01) ==
LOC: LAB 11:47
PROVIDERS: PCP Family Medicine; Referring Provider Student in an Organized Health Care Education/Training Program; Visit Provider Student in an Organized Health Care Education/Training Program
DX: R06.02 Shortness of breath (principal); R00.2 Palpitations; R00.0 Tachycardia, unspecified
CPT/HCPCS: 36415; 83735; 83880; 84443

== ENCOUNTER 2025-09-04 18:40 | Emergency (ER) | payer MEDICARE, SELFPAY ==
[2025-09-04 18:43] VITALS: BP 171/112; PULSE 125; RESP 18; TEMP 35.8; O2SAT 94
[2025-09-04 20:41] VITALS: BP 142/98; PULSE 117; RESP 18; O2SAT 100
--- NOTE | 2025-09-04 21:53 | EKG12_ITS ---
Test Reason : CP Blood Pressure : */* mmHG Vent. Rate : 119 BPM Atrial Rate : 119 BPM P-R Int : 178 ms QRS Dur : 74 ms QT Int : 308 ms P-R-T Axes : 60 -65 46 degrees QTcB Int : 433 ms Sinus tachycardia Left axis deviation Low voltage QRS Inferior infarct (cited on or before 20-Sep-2012) Possible Anterolateral infarct (cited on or before 05-Dec-2019) Abnormal ECG Confirmed by Colby Heard ([id number]), copy editor JEREMIAH FERNANDEZ ([id number]) on 09/08/2025 8:21:23 AM Referred By: TANYA Confirmed By: Colby Heard
[2025-09-04 22:00] VITALS: BP 136/70; PULSE 80; RESP 16; O2SAT 99
--- OUTSIDE RECORDS SUMMARY | 2025-09-04 22:03 | XMS RPT_ITS | CCD ---
Author Organization [facility] Care Team Providers Care It Security Manager Name Role Phone Alvaro Hyman Attending Unavailable PROVIDER, UNKNOWN Referring Unavailable Homero Juares Primary Care Unavailable Homero Juares Primary Care Provider Gregg Anton Primary Care Provider Gregg Anton Primary Care Provider Gregg Anton Primary Care Provider Gregg Anton Primary Care Provider [phone] Gregg Anton Primary Care Provider [phone] Gregg Anton MD Primary Care Provider Gregg Anton Primary Care Unavailable PROVIDER, UNKNOWN Referring Unavailable UNKNOWN, PROVIDER Attending Unavailable Gregg Anton Primary Care Unavailable PAULLEE CRABTREE T Attending Unavailable PROVIDER, UNKNOWN Referring Unavailable Gregg Anton Primary Care Unavailable PAUL, LEE T Attending Unavailable PROVIDER, UNKNOWN Referring Unavailable Gregg Anton Primary Care Unavailable PAUL, LEE T Attending Unavailable PROVIDER, UNKNOWN Referring Unavailable Dr. Gregg Anton Primary Care Provider [phone] Dr. Benito Walters Emergency Provider Dr. Michelet Tariq Admit Provider [phone] Michelet Tariq Attending Provider Dr. Michelet Tariq Other Provider Gregg Anton MD Primary Care Provider Dr. Gregg Anton Primary Care Provider Dr. Benito Walters Emergency Provider Dr. Michelet Tariq Admit Provider Dr. Michelet Tariq Attending Provider Dr. Michelet Tariq Other Provider Anton, Gregg A Primary Care Provider [phone] Anton, Gregg A Primary Care Provider Paul MOJICA, Lee T Unavailable Paul MOJICA, Ele T Unavailable Desean MOJICA, Gregg A Primary Care Provider [phone] LEANO, ANITA Referring Unavailable ANTON, GREGG A Primary Care Unavailable LEANO, ANITA Referring Unavailable ANTON, GREGG A Primary Care Unavailable LEANO, ANITA Referring Unavailable ANTON, GREGG A Primary Care Unavailable LEANO, ANITA Referring Unavailable ANTON, GREGG A Primary Care Unavailable LEANO, ANITA Referring Unavailable ANTON, GREGG A Primary Care Unavailable LEANO, ANITA Attending Unavailable ANTON, GREGG A Primary Care Unavailable LEANO, ANITA Referring Unavailable ANTON, GREGG A Primary Care Unavailable LEANO, ANITA Attending Unavailable LEANO, ANITA Referring Unavailable ANTON, GREGG A Primary Care Unavailable LEANO, ANITA Referring Unavailable ANTON, GREGG A Primary Care Unavailable LEANO, ANITA Referring Unavailable ANTON, GREGG A Primary Care Unavailable Desean MOJICA, Dr. Marvin Primary Care Provider McMorrow PAINTER SPRING-C, Geraldo Attending Provider McMorrow PAINTER SPRING-C, Geraldo Referring Provider LEE MILLER Attending Unavailable LEE MILLER Referring Unavailable ANTON, GREGG Primary Care Unavailable LEE MILLER Attending Unavailable DESEAN, GREGG Primary Care Unavailable Desean MOJICA, Dr. Marvin Attending Provider [phone] Gregg Anton MD Referring Provider [phone] DESEAN, GREGG A Primary Care Unavailable NORA BARTON Attending Unavailable DESEAN, GREGG A Primary Care Unavailable NORA BARTON Attending Unavailable Dr. Gregg Anton MD Primary Care Physician McMorrow PAINTER SPRING-C, Geraldo Attending Physician Dr. Gregg Anton MD Attending Physician Hoa MD, Dr. Gregg Attending Physician Desean MOJICA, Dr. Marvin Primary Care Physician Kiki Sam Attending Physician [phone] Anton, Gregg Primary Care Unavailable McMorrow PAINTER SPRING, Geraldo Referring Unavailable McMorrow PAINTER SPRING, Geraldo Attending Unavailable Anton, Gregg Primary Care Unavailable Anton, Gregg Referring Unavailable Anton, Gregg Attending Unavailable Beltrán, Shaen Referring Unavailable Beltrán, Shane Attending Unavailable Anton, Gregg Primary Care Unavailable Beltrán, Shane Referring Unavailable Beltrán, Shane Attending Unavailable Anton, Gregg Primary Care Unavailable Anton, Gregg Primary Care Unavailable Anton, Gregg Referring Unavailable Anton, Gregg Attending Unavailable Anton, Gregg Primary Care Unavailable Anton, Gregg Referring Unavailable Anton, Gregg Attending Unavailable Anton, Gregg Primary Care Unavailable Anton, Gregg Referring Unavailable Anton, Gregg Attending Unavailable Anton, Gregg Referring Unavailable Beltrán, Shane Attending Unavailable Anton, Gregg Primary Care Unavailable Anton, Gregg Primary Care Unavailable Anton, Gregg Referring Unavailable Kiki Elmore Attending Unavailable Anton, Gregg Primary Care Unavailable Gary PAINTER SPRING, Nathalie Attending Unavailable Anton, Gregg Primary Care Unavailable Anton, Gregg Referring Unavailable Hoa, Gregg Attending Unavailable Anton, Gregg Primary Care Unavailable Jerel, Shane Referring Unavailable Shane Beltrán Consulting Unavailable Kurt, Yogi Attending Unavailable Allergies Allergy Classification Reported Allergen(s) Allergy Type Date of Onset Reaction(s) Facility Bee/Wasp/Ant Venom (2 sources) bee venom Substance Allergy [facility] hydroCHLOROthiazide / Lisinopril (3 sources) hydroCHLOROthiazide / Lisinopril Drug Allergy [facility] metFORMIN (2 sources) metFORMIN Drug Allergy Diarrhea [facility] Opioid Agonists (3 sources) Morphine Drug Allergy Rash [facility] (20 sources) hydroCHLOROthiazide / Lisinopril; Translations: [LISINOPRIL-HYDROCHLO ROTHIAZIDE] Drug Allergy Rash, Cough [place], [place] (20 sources) Morphine; Translations: [MORPHINE] Drug Allergy Rash [place] (7 sources) Metformin And Related Propensity to adverse reactions to drug [place] (7 sources) Other; Translations: [OTHER] Propensity to adverse reactions [facility], [place] (2 sources) steroids [Other] Propensity to adverse reactions Rash [facility] (2 sources) zesteretic [Other] Propensity to adverse reactions Hives [facility] (16 sources) hydroCHLOROthiazide Drug Allergy Rash [facility] (16 sources) Lisinopril Drug Allergy [facility] (20 sources) metFORMIN; Translations: [METFORMIN] Drug Allergy Diarrhea [facility] (9 sources) STERIODS Allergy to substance Rash [facility] (6 sources) Honey bee venom Propensity to adverse reactions [facility] (14 sources) Lisinopril Propensity to adverse reactions Rash, Cough [facility] (14 sources) Prednisone Propensity to adverse reactions [facility] (16 sources) Ramipril; Translations: [RAMIPRIL] Propensity to adverse reactions Cough [facility] (9 sources) Glucocorticoid Receptor Agonists; Translations: [CORTICOSTEROIDS (GLUCOCORTICOIDS)] Allergy to substance [facility] (6 sources) bee venom Propensity to adverse reactions [facility] (15 sources) Glucocorticoid preparation Drug Allergy [facility] (15 sources) Ramipril Drug Allergy [facility] (1 source) Corticosteroids Drug allergy (disorder) [facility] (1 source) hydroCHLOROthiazide Drug Allergy [facility] (1 source) Lisinopril Drug Allergy [facility] (1 source) metFORMIN Drug Allergy [facility] (1 source) Morphine Drug Allergy [facility] NEGATED: Highlighted row has been ruled out!Unclassified (1 source) Other Propensity to adverse reactions [facility] Medications Current Medications Medication Drug Class(es) Dates Sig (Normalized) Sig (Original) [id number] 200 actuat albuterol 0.09 mg/actuat metered dose inhaler (20 sources) beta2-Adrenergic Agonist Start: 02-16-2023 take 2 puff(s) by mouth every four hours albuterol 108 (90 Base) MCG/ACT inhaler INHALE 2 PUFFS BY MOUTH EVERY 4 HOURS 02/16/2023 Active Start: 07-17-2021 take 0.63 mg by inha lation twice daily Albuterol Sulfate 0.63 mg/3 mL Solution For Nebulization Active 0.63 mg INHALATION TWICE A DAY July 17, 2021 12:00am ASTHMA Complies with drug therapy Start: 10-23-2020 End: 06-27-2024 Albuterol Sulfate (Ventolin Hfa) 90 mcg/actuation HFA aerosol inhaler Discontinued 2 NMA INHALATION Q4H as needed for Wheezing October 23, 2020 1:00am June 27, 2024 1:36pm Start: 10-23-2020 take 1 puff(s) by in halation every four hours Albuterol Sulfate (Ventolin Hfa) 90 mcg/actuation HFA aerosol inhaler Active 2 PUFF INHALATION Q4H October 23, 2020 1:00am albuterol 0.833 mg/ml / ipratropium bromide 0.167 mg/ml inhalation solution (20 sources) Anticholinergic, beta2-Adrenergic Agonist Start: 07-04-2021 take 3 mL by inhalation four times daily ipratropium-albuterol (DUONEB) 0.5 mg-3 mg(2.5 mg base)/3 mL nebu Indications: Moderate persistent asthma without complication (HCC) , History of COVID-19 Inhale 3 mL as instructed four times daily. 360 mL 11 07/04/2021 Active Comment on above: Inhale 3 mL as instr ucted four times daily. amphetamine aspartate 2.5 mg / amphetamine sulfate 2.5 mg / dextroamphetamine saccharate 2.5 mg / dextroamphetamine sulfate 2.5 mg oral tablet (4 sources) Central Nervous System Stimulant take 1 tablet by mouth twice daily amphetamine-dextroamphe tamine (ADDERALL) 10 MG tablet Take 10 mg by mouth 2 times daily. 0 Active atorvastatin 20 mg oral tablet (4 sources) HMG-CoA Reductase Inhibitor take 1 tablet by mouth once daily atorvastatin (LIPITOR) 20 MG tablet Take 20 mg by mouth daily 0 Active Budesonide-Formotero l (Breyna) 160-4.5 mcg/actuation HFA aerosol inhaler (3 sources) Start: 06-27-2024 Budesonide-Formoterol (Breyna) 160-4.5 mcg/actuation HFA aerosol inhaler Active 2 NMA INHALATION TWICE A DAY June 27, 2024 12:00am calcium carbonate 1500 mg / cholecalciferol 800 unt chewable tablet (20 sources) Vitamin D Start: 11-08-2019 Calcium Carbonate-Vitamin D3 Active 2 EACH PO DAILY November 08, 2019 12:00am Calcium Carb-Cho lecalciferol (Caltrate 600+D3 Soft) 600-20 MG-MCG chewable tablet Chew. Active Calcium Carb-Cho lecalciferol (CALTRATE 600+D) 600-800 MG-UNIT TABS Take by mouth 0 Active Calcium Carbonate / Vitamin D (3 sources) Calcium Carb-Cholecalciferol (CALTRATE 600+D) 600-800 MG-UNIT TABS Take by mouth 0 Active calcium citrate 950 mg / cholecalciferol 250 unt oral tablet (5 sources) Vitamin D Start: 2023 Calcium Citrate-Vitamin D3 200 mg-6.25 mcg (250 unit) tablet Active 1 {tbl} PO daily June 27, 2024 12:00am Complies with drug therapy canagliflozin 300 mg oral tablet (13 sources) Sodium-Glucose Cotransporter 2 Inhibitor Start: 2020 End: 2023 take 1 tablet by mouth once daily Canagliflozin (Invokana) 300 mg tablet Active 300 MG PO DAILY July 16, 2021 11:00pm Comment on above: Take 300 mg by mouth daily with breakfast. carvedilol 6.25 mg oral tablet (20 sources) alpha-Adrenergic Rayna, beta-Adrenergic Rayna Start: 2023 take 1 tablet by mouth twice daily Carvedilol 6.25 mg tablet Active 6.25 mg PO TWICE A DAY June 27, 2024 12:00am Complies with drug therapy clotrimazole 10 mg/ml topical cream (2 sources) Azole Antifungal Start: 2024 clotrimazole (LOTRIMIN) 1 % cream APPLY CREAM TOPICALLY TO AFFECTED AREA TWICE DAILY FOR 14 DAYS 04/25/2025 Active Start: 03-29-2025 End: 07-30-2025 clotrimazole (LOTRIMIN) 1 % cream Apply to affected area two times a day for 14 days. 45 g 1 03/29/2025 04/12/2025 Active dapagliflozin 10 mg oral tablet (20 sources) Sodium-Glucose Cotransporter 2 Inhibitor Start: 06-27-2024 take 1 tablet by mouth once daily in the morning Dapagliflozin Propanediol (Farxiga) 10 mg tablet Active 10 mg PO EVERY MORNING June 27, 2024 12:00am Complies with drug therapy Start: 06-27-2024 End: 02-28-2021 take 1 tablet by mouth once daily in the morning Dapagliflozin Propanediol (Farxiga) 10 mg tablet Active 10 mg PO EVERY MORNING June 27, 2024 12:00am take 1 tablet by lynsey th once daily at breakfast dapagliflozin propanediol (FARXIGA) 10 mg tablet Take 10 mg by mouth daily with breakfast. Active DEXCOM G7 SENSOR ricky (2 sources) Start: 01-23-2025 DEXCOM G7 SENSOR ricky CHANGE SENSOR EVERY 10 DAYS 01/23/2025 Active doxepin hydrochloride 25 mg oral capsule (20 sources) Tricyclic Antidepressant Start: 10-23-2020 take 1 capsule by mouth at bedtime Doxepin 25 mg capsule Active 25 mg PO AT BEDTIME October 23, 2020 1:00am DEPRESSION/ANXIE TY Complies with drug therapy DOXEPIN HCL PO T daron 60 tablets by mouth daily 0 Active Comment on above: Take 25 mg by mouth daily at bedtime. DULoxetine 60 mg delayed release oral capsule (20 sources) Serotonin and Norepinephrine Reuptake Inhibitor Start: take 1 capsule by mouth once daily Duloxetine (Cymbalta) 60 mg capsule,delayed release(DR/EC) Active 60 mg PO DAILY October 23, 2020 1:00am DEPRESSION/ANXIETY Complies with drug therapy Start: 02-09-2020 take 2 capsules by m outh once daily in the morning DULoxetine (CYMBALTA) 30 mg capsule Take 60 mg by mouth every morning. 0 02/09/2020 Active DULoxetine HCl 6 0 MG CSDR Take by mouth 0 Active Comment on above: Take 60 mg by mouth every morning. DULoxetine HCl 60 MG CSDR (1 source) DULoxetine HCl 6 0 MG CSDR Take by mouth 0 Active [id number] 0.3 ml EPINEPHrine 1 mg/ml auto-injector (15 sources) alpha-Adrenergic Agonist, beta-Adrenergic Agonist, Catecholamine Start: 11-13-2022 EPINEPHrine (Epipen) 0.3 MG/0.3ML injection syringe INJECT 1 ML DIRECTED 11/13/2022 Active Start: 10-23-2020 Epinephrine Ac tive 0.3 MG IM every 5 to 15 minutes October 23, 2020 12:00am do not exceed 3 doses per episode esomeprazole 20 mg delayed release oral tablet (20 sources) Proton Pump Inhibitor Start: 09-23-2022 End: 06-27-2024 Esomeprazole Magnesium (Nexium 24hr) 20 mg tablet,delayed release (DR/EC) Active 40 mg PO DAILY as needed June 27, 2024 1:41pm Complies with drug therapy Start: 10-25-2020 End: 09-23-2022 take 1 tablet by mouth once daily as needed Esomeprazole Magnesium (Nexium 24hr) 20 mg tablet,delayed release (DR/EC) Discontinued 20 mg PO DAILY as needed for Acid Reflux October 25, 2020 1:00am September 23, 2022 10:39am Start: 10-23-2020 End: 10-25-2020 take 1 capsule by mouth once daily Esomeprazole Magnesium 40 mg capsule,delayed release(DR/EC) Discontinued 40 mg PO DAILY October 23, 2020 1:00am October 25, 2020 3:15pm End: 03-14-2024 take 20 mg by mouth once daily esomeprazole (NexIUM) 2 0 MG packet Take 20 mg by mouth daily. 03/14/2024 Discontinued (Med list cleanup) Esomeprazole Magnesium (Nexi um 24hr) 20 mg tablet,delayed release (DR/EC) (13 sources) Start: 06-27-2024 Esomeprazole M agnesium (Nexium 24hr) 20 mg tablet,delayed release (DR/EC) Active 40 mg PO DAILY as needed June 27, 2024 1:41pm Start: 09-23-2022 End: 06-27-2024 Esomeprazole Magnesium (Nexi um 24hr) 20 mg tablet,delayed release (DR/EC) Discontinued 40 mg PO DAILY 30 0 September 23, 2022 10:39am June 27, 2024 1:44pm Start: 09-23-2022 End: 06-27-2024 Esomeprazole Magnesium (Nexi um 24hr) 20 mg tablet,delayed release (DR/EC) Discontinued 40 mg PO DAILY September 23, 2022 10:39am June 27, 2024 1:44pm Start: 09-23-2022 Esomeprazole M agnesium (Nexium 24hr) 20 mg tablet,delayed release (DR/EC) Active 40 MG PO DAILY September 23, 2022 10:39am Start: 09-23-2022 Esomeprazole M agnesium (Nexium 24hr) 20 mg tablet,delayed release (DR/EC) Active 40 MG PO DAILY September 23, 2022 9:39am estradiol 0.1 mg/ml vaginal cream (15 sources) Estrogen Start: 04-07-2024 estradiol (ESTRACE) 0.01 % (0.1 mg/gram) vaginal cream Use 0.5 g vaginally two times a week. use small amount to vaginal opening twice weekly 42.5 g 1 04/07/2024 Active fluconazole 150 mg oral tablet (1 source) Azole Antifungal Start: 03-29-2025 End: 04-28-2025 take 1 tablet by mouth every week fluconazole (DIFLUCAN) 150 mg tablet Take 1 tablet by mouth one time a week. 4 tablet 03/29/2025 04/28/2025 Active hydroCHLOROthiazide 25 mg oral tablet (3 sources) Thiazide Diuretic take 1 tablet by mouth once daily hydroCHLOROthiazide (HYDRODIURIL) 25 MG tablet Take 25 mg by mouth daily 0 Active hydroCHLOROthiazide 25 mg / triamterene 37.5 mg oral tablet (4 sources) Potassium-sparing Diuretic, Thiazide Diuretic take 1 tablet by mouth once daily triamterene-hydrochlor othiazide (MAXZIDE-25) 37.5-25 MG per tablet Take 1 tablet by mouth daily 0 Active hydrOXYzine hydrochloride 25 mg oral tablet (2 sources) Antihistamine take 1 tablet by mouth three times daily hydrOXYzine (ATARAX) 25 MG tablet Take 25 mg by mouth 3 times daily 0 Active 3 ml insulin glargine 100 unt/ml pen injector (20 sources) Insulin Analog Start: 01-23-2023 Lantus SoloStar 100 UNIT/ML pen 01/23/2023 Active Start: 10-25-2020 Insulin Glargi ne (Lantus Solostar U-100 Insulin) 100 unit/mL (3 mL) insulin pen Active 12 U SC EVERY EVENING October 25, 2020 3:13pm DIABETES Complies with drug therapy Start: 10-25-2020 Insulin Glargi ne (Lantus Solostar U-100 Insulin) 100 unit/mL (3 mL) insulin pen Active 14 UNIT SC EVERY EVENING October 25, 2020 2:13pm Start: 10-23-2020 End: 10-25-2020 Insulin Glargine (Lantus Jossie ostar U-100 Insulin) 100 unit/mL (3 mL) insulin pen Discontinued 10 U SC EVERY EVENING October 23, 2020 1:00am October 25, 2020 3:16pm insulin glargine (LANTUS SOLOSTAR U-100 INSULIN) 100 unit/mL (3 mL) Inject subcutaneously. 12 units daily Active 3 ml insulin lispro 100 unt/ml pen injector (2 sources) Insulin Analog Start: 01-16-2025 inject 8 [IU] by subcutaneous injection before breakfast, then inject 4 [IU] by subcutaneous injection at mealtime HUMALOG KWIKPEN INSULIN 100 unit/mL INJECT 8 UNITS SUBCUTANEOUSLY BEFORE BREAKFAST OR LUNCH, AND 4 UNITS BEFORE LAST MEAL. 01/16/2025 Active losartan potassium 50 mg oral tablet (20 sources) Angiotensin 2 Receptor Rayna Start: 10-25-2020 End: 03-14-2024 take 1 tablet by mouth twice daily Losartan 50 mg tablet Active 50 mg PO TWICE A DAY October 25, 2020 1:00am BLOOD PRESSURE Complies with drug therapy Start: 08-04-2016 End: 04-07-2024 take 1 tablet by mouth once daily Losartan 50 MG tablet Discontinued 50 mg PO DAILY November 08, 2019 1:00am October 23, 2020 3:48pm blood pressure Comment on above: Take 50 mg by mouth once daily. MEDICATION, NON-DATABASE (20 sources) End: 07-03-2021 take 1 tablet by mouth once daily MEDICATION, NON-DATABASE Take 1 tablet by mouth once daily. Vitalbiome 07/03/2021 Discontinued take 1 dose by mouth once daily MEDICATION, NON-DATABASE Take 1 Each by mouth once daily. Slim Active take 2 capsules by m outh once daily at bedtime MEDICATION, NON-DATABASE Take 2 capsules by mouth daily at bedtime. Biocleanse Active take 1 dose by mouth once daily MEDICATION, NON-DATABASE Take 1 Each by mouth once daily. Slim 0 Active take 2 capsules by m outh once daily at bedtime MEDICATION, NON-DATABASE Take 2 capsules by mouth daily at bedtime. Biocleanse 0 Active Comment on above: Take 1 Each by mouth once daily. Slim Take 2 capsules by m outh daily at bedtime. Biocleanse 24 hr mirabegron 50 mg extended release oral tablet (20 sources) beta3-Adrenergic Agonist Start: 05-08-2025 take 1 tablet by mouth once daily mirabegron (MYRBETRIQ) 50 mg Tb24 Take 1 tablet by mouth once daily. Patient should start on May 08, 2025. 90 tablet 3 05/08/2025 Active Start: 05-08-2025 take 1 tablet by lynsey th once daily mirabegron (MYRBETRIQ) 50 mg Tb24 Take 1 tablet by mouth once daily. Patient should start on May 08, 2025. 90 tablet 3 05/08/2025 Active Start: 03-29-2025 End: 05-28-2025 take 1 tablet by mouth once daily mirabegron (MYRBETRIQ) 50 mg Tb24 Take 1 tablet by mouth once daily. 30 tablet 1 03/29/2025 05/28/2025 Active Start: 04-18-2024 End: 03-29-2025 take 1 tablet by mouth once daily Mirabegron 25 mg tablet extended release 24 hr Active 25 mg PO daily June 27, 2024 12:00am Complies with drug therapy Multivitamin preparation (11 sources) Start: 10-23-2020 take 1 tablet by mouth once daily Multivitamin Active 1 TABLET PO DAILY October 23, 2020 12:00am Start: 10-23-2020 take 1 tablet by lynsey th once daily Multivitamin Active 1 TABLET PO DAILY October 23, 2020 1:00am NUTRITIONAL SUPPLEMENTS PO (6 sources) NUTRITIONAL SUPP LEMENTS PO Take by mouth Plexus products: Slim drink, vitalbione, block, brisa X, X-factor plus, bio-cleanse 0 Active ofloxacin 3 mg/ml ophthalmic solution (1 source) Quinolone Antimicrobial Start: 05-03-2025 ofloxacin (OCUFLOX) 0.3 % ophthalmic solution INSTILL 1 DROP INTO RIGHT EYE 4 TIMES DAILY 3 DAYS PRIOR TO SURGERY AND CONTINUING 4 TIMES DAILY AFTER SURGERY 05/03/2025 Active Ozempic, 2 MG/DOSE, 8 MG/3ML solution pen-injector (12 sources) Start: 12-28-2022 Ozempic, 2 MG/DOSE, 8 MG/3ML solution pen-injector 12/28/2022 Active Start: 12-28-2022 Ozempic, 2 MG/ DOSE, 8 MG/3ML solution pen-injector pitavastatin calcium 4 mg oral tablet (2 sources) HMG-CoA Reductase Inhibitor take 1 tablet by mouth once daily pitavastatin (LIVALO) 4 MG TABS tablet Take by mouth nightly 0 Active Plexus Bio Cleanse (5 sources) Start: Plexus Bio Cleanse Active PO June 27, 2024 12:00am Complies with drug therapy Start: 06-27-2024 Start: 06-27-2024 Plexus Bio Pablo anse Active PO June 27, 2024 12:00am Plexus immune (5 sources) Start: 06-27-2024 Plexus immune Active PO June 27, 2024 12:00am Complies with drug therapy Start: 06-27-2024 Start: 06-27-2024 Plexus immune Active PO June 27, 2024 12:00am Plexus Megax (5 sources) Start: 06-27-2024 Plexus Megax A ctive PO June 27, 2024 12:00am Complies with drug therapy Start: 06-27-2024 Start: 06-27-2024 Plexus Megax A ctive PO June 27, 2024 12:00am Plexus Probio5 (5 sources) Start: 06-27-2024 Plexus Probio5 Active PO June 27, 2024 12:00am Complies with drug therapy Start: 06-27-2024 Start: 06-27-2024 Plexus Probio5 Active PO June 27, 2024 12:00am 0.25 mg, 0.5 mg dose 1.5 ml semaglutide 1.34 mg/ml pen injector (20 sources) Start: 07-17-2021 Semaglutide (Ozempic) 0.25 mg or 0.5 mg(2 mg/1.5 mL) pen injector Active 0.25 mg SC July 17, 2021 12:00am DIABETES Complies with drug therapy Comment on above: Inject 0.25 mg subcu taneously one time a week. sertraline 50 mg oral tablet (1 source) Serotonin Reuptake Inhibitor take 1 tablet by mouth once daily sertraline (ZOLOFT) 50 MG tablet Take 50 mg by mouth daily 0 Active tamoxifen 20 mg oral tablet (20 sources) Estrogen Agonist/Antagonist Start: 10-15-2020 End: 04-05-2025 take 1 tablet by mouth once daily Tamoxifen 20 mg tablet Active 20 mg PO DAILY October 25, 2020 1:00am BREAST CANCER Complies with drug therapy Comment on above: Take 1 tablet by lynsey th once daily. THERAPEUTIC MULTIVITAMIN TAB (20 sources) Start: 06-09-2006 THERAPEUTIC MULTIVITAMIN TAB Take one(1) tablet daily. 0 06/09/2006 Active Comment on above: Take one(1) tablet d aily. topiramate 25 mg oral tablet (3 sources) take 1 tablet by mouth twice daily topiramate (TOPAMAX) 25 MG tablet Take 25 mg by mouth 2 times daily 0 Active Completed/Discontinued Medications Medication Drug Class(es) Dates Sig (Normalized) Sig (Original) anastrozole 1 mg oral tablet (20 sources) Aromatase Inhibitor Start: 10-23-2020 End: 10-25-2020 take 1 tablet by mouth once daily Anastrozole 1 mg tablet Discontinued 1 mg PO DAILY October 23, 2020 1:00am October 25, 2020 3:16pm Start: 01-19-2020 take 1 tablet by lynsey th once daily anastrozole (ARIMIDEX) 1 MG tablet Indications: Ductal carcinoma in situ (DCIS) of left breast Take 1 tablet by mouth daily 90 tablet 3 01/19/2020 Active Start: 08-08-2019 take 1 tablet by lynsey th once daily anastrozole (ARIMIDEX) 1 MG tablet Take 1 tablet by mouth daily 90 tablet 1 08/08/2019 Active Start: 06-06-2019 take 1 tablet by lynsey th once daily anastrozole (ARIMIDEX) 1 MG tablet Take 1 tablet by mouth daily 30 tablet 1 06/06/2019 Active 120 actuat budesonide 0.16 mg/actuat / formoterol fumarate 0.0045 mg/actuat metered dose inhaler (20 sources) Corticosteroid, beta2-Adrenergic Agonist Start: 06-27-2024 End: 06-22-2025 Budesonide-Formoterol (Breyna) 160-4.5 mcg/actuation HFA aerosol inhaler Discontinued 2 NMA INHALATION TWICE A DAY June 27, 2024 12:00am June 22, 2025 9:14am Start: 03-28-2024 take 2 puff(s) by in halation twice daily budesonide-formoterol (SYMBICORT) 160-4.5 mcg/actuation inhaler Indications: Moderate persistent asthma without complication (HCC) Inhale 2 Puffs as instructed two times a day. 1 Each 03/28/2024 Active Start: 03-28-2024 take 2 puff(s) by in halation twice daily budesonide-formoterol (SYMBICORT) 160-4.5 mcg/actuation inhaler Indications: Moderate persistent asthma without complication Inhale 2 Puffs as instructed two times a day. 1 Each 03/28/2024 Active Start: 10-23-2020 End: 10-25-2020 Budesonide-Formoterol (Symbi lorenzo) 160-4.5 mcg/actuation HFA aerosol inhaler Discontinued 2 NMA INHALATION TWICE A DAY October 23, 2020 1:00am October 25, 2020 3:15pm Start: 10-23-2020 End: 10-25-2020 take 1 puff(s) by inhalation twice daily Budesonide-Formoterol (Symbicort) 160-4.5 mcg/actuation HFA aerosol inhaler Discontinued 2 PUFF INHALATION TWICE A DAY October 23, 2020 12:00am October 25, 2020 2:15pm Start: 10-23-2020 End: 10-25-2020 take 1 puff(s) by inhalation twice daily Budesonide-Formoterol (Symbicort) 160-4.5 mcg/actuation HFA aerosol inhaler Discontinued 2 PUFF INHALATION TWICE A DAY October 23, 2020 1:00am October 25, 2020 3:15pm Start: 10-13-2017 End: 07-03-2021 take 2 puff(s) by inhalation twice daily budesonide-formoterol (SYMBICORT) 160-4.5 mcg/actuation inhaler Indications: Moderate persistent asthma without complication Inhale 2 Puffs as instructed twice daily. 1 Inhaler 11 10/13/2017 07/03/2021 Discontinued take 2 puff(s) by in halation in the morning budesonide-formoterol (Symbicort) 160-4.5 MCG/ACT inhaler Inhale 2 puffs in the morning and 2 puffs in the evening. Active take 2 puff(s) by in halation twice daily budesonide-formoterol (SYMBICORT) 160-4.5 mcg/actuation inhaler Inhale 2 Puffs as instructed twice daily. Active take 2 puff(s) by in halation twice daily budesonide-formoterol (SYMBICORT) 160-4.5 mcg/actuation inhaler Inhale 2 Puffs as instructed twice daily. 0 Active take 2 puff(s) by in halation twice daily budesonide-formoterol (SYMBICORT) 160-4.5 MCG/ACT AERO Inhale 2 puffs into the lungs 2 times daily 0 Active Comment on above: Inhale 2 Puffs as in structed twice daily. 12 hr buPROPion hydrochloride 100 mg extended release oral tablet (17 sources) Aminoketone Start: 0 End: 1 take 1 tablet by mouth twice daily Bupropion Hcl 100 MG tablet sustained-release 12 hr Discontinued 100 mg PO TWICE A DAY November 08, 2019 1:00am October 23, 2020 3:43pm depression take 1 tablet by mouth twice rosalinda ly buPROPion (WELLBUTRIN) 100 MG tablet Take 100 mg by mouth 2 times daily 0 Active clobetasol propionate 0.5 mg/ml topical cream (20 sources) Corticosteroid Start: 02-23-2024 End: 05-10-2025 clobetasol (TEMOVATE) 0.05 % cream APPLY 1/4 OF A GRAM TO GENITALIA TWICE DAILY DIRECTED 02/23/2024 05/10/2025 Discontinued (Other) Start: 09-22-2022 Clobetasol-Emo llient 0.05 % cream Active 1 NMA TOPICAL TWICE A DAY September 22, 2022 1:00am AFFECTED AREA Complies with drug therapy clonazePAM 2 mg oral tablet (20 sources) Benzodiazepine Start: 11-08-2019 End: 10-23-2020 take 1 tablet by mouth at bedtime Clonazepam 2 MG tablet Discontinued 2 mg PO AT BEDTIME November 08, 2019 1:00am October 23, 2020 3:43pm sleep take 0.5 tablet by m outh once daily as needed clonazePAM (KLONOPIN) 1 MG tablet Take 1 mg by mouth nightly as needed. Take 0.5 pill PRN at night 0 Active take 1 tablet by lynsey th once daily as needed clonazePAM (KLONOPIN) 1 MG tablet Take 1 mg by mouth nightly as needed. 0 Active empagliflozin 25 mg oral tablet (20 sources) Sodium-Glucose Cotransporter 2 Inhibitor Start: 09-22-2022 End: 06-27-2024 take 1 tablet by mouth once daily Empagliflozin (Jardiance) 25 mg tablet Discontinued 25 mg PO DAILY September 22, 2022 1:00am June 27, 2024 1:42pm DIABETES On Hold: Hold for 5 days. Comment on above: Take 25 mg by mouth. Fluticasone Propionate (20 sources) Corticosteroid Start: 10-25-2020 End: 06-27-2024 Fluticasone Propionate (Flovent Diskus) 250 mcg/actuation blister with device Discontinued 2 NMA INHALATION TWICE A DAY October 25, 2020 1:00am June 27, 2024 1:36pm ASTHMA Start: 10-25-2020 End: 06-27-2024 Fluticasone Propionate (Flov ent Diskus) 250 mcg/actuation blister with device Discontinued 2 NMA INHALATION TWICE A DAY October 25, 2020 1:00am June 27, 2024 1:36pm Start: 10-25-2020 Fluticasone Pr opionate (Flovent Diskus) 250 mcg/actuation blister with device Active 2 INH INHALATION TWICE A DAY October 25, 2020 12:00am Start: 10-25-2020 Fluticasone Pr opionate (Flovent Diskus) 250 mcg/actuation blister with device Active 2 INH INHALATION TWICE A DAY October 25, 2020 1:00am End: 03-16-2025 fluticasone (Flonase) 50 MCG /ACT nasal spray Administer into affected nostril(s). 03/16/2025 Discontinued take 1 spray(s) nasa l route once daily fluticasone (FLONASE) 50 MCG/ACT nasal spray 1 spray by Each Nostril route daily 0 Active Fluticasone Propion-Salmeterol (16 sources) Corticosteroid, beta2-Adrenergic Agonist Start: 11-08-2019 End: 10-23-2020 Fluticasone Propion-Salmeterol 250-50 mcg/dose blister with device Discontinued 2 NMA IH TWICE A DAY as needed for Shortness Of Breath November 08, 2019 1:00am October 23, 2020 3:44pm Start: 11-08-2019 End: 10-23-2020 take 1 puff(s) by inhalation twice daily Fluticasone Propion-Salmeterol Discontinued 2 PUFF IH TWICE A DAY November 08, 2019 12:00am October 23, 2020 2:44pm Start: 11-08-2019 End: 10-23-2020 take 1 puff(s) by inhalation twice daily Fluticasone Propion-Salmeterol Discontinued 2 PUFF IH TWICE A DAY November 08, 2019 1:00am October 23, 2020 3:44pm folic acid 0.4 mg oral tablet (19 sources) Start: 11-08-2019 End: 10-23-2020 take 1 tablet by mouth once daily Folic Acid 0.4 MG tablet Discontinued 0.4 mg PO DAILY@0800 November 08, 2019 1:00am October 23, 2020 3:48pm supplement take 1 tablet by mouth once jamin y folic acid (FOLVITE) 400 MCG tablet Take 400 mcg by mouth daily 0 Active gabapentin 100 mg oral capsule (12 sources) Anti-epileptic Agent Start: 11-12-2021 End: 04-07-2024 gabapentin (NEURONTIN) 100 mg capsule five times daily. One in the morning, one with supper, and three at bedtime 0 11/12/2021 04/07/2024 Discontinued Comment on above: five times daily. On e in the morning, one with supper, and three at bedtime glimepiride 4 mg oral tablet (20 sources) Sulfonylurea Start: 01-23-2023 End: 03-16-2025 glimepiride (Amaryl) 4 MG tablet 01/23/2023 03/16/2025 Discontinued Start: 10-25-2020 take 2 mg by mouth once daily Glimepiride 4 mg tablet Active 2 mg PO DAILY October 25, 2020 3:13pm diabetes On Hold: Hold for 5 days. Complies with drug therapy Start: 10-25-2020 take 2 mg by mouth once daily Glimepiride Active 2 MG PO DAILY October 25, 2020 3:13pm On Hold: Hold for 5 days. Start: 10-25-2020 take 2 mg by mouth twice daily Glimepiride Active 2 MG PO TWICE A DAY October 25, 2020 2:13pm Start: 11-08-2019 End: 10-25-2020 take 1 tablet by mouth twice daily Glimepiride 4 MG tablet Discontinued 4 mg PO TWICE A DAY November 08, 2019 1:00am October 25, 2020 3:16pm diabetes End: 03-29-2025 take 1 tablet by mouth once daily at breakfast, then take 1 tablet by mouth in the morning, then take 2 mg by mouth in the evening glimepiride (AMARYL) 4 mg tablet Take 4 mg by mouth daily with breakfast. 4 mg in am 2 mg in pm 03/29/2025 Discontinued (Other) take 0.5 tablet by m outh once daily glimepiride (AMARYL) 4 MG tablet Indications: taking 8 mg hs Take 2 mg by mouth nightly Indications: taking 8 mg hs Take 0.5 tab each night 0 Active Comment on above: Take 4 mg by mouth d aily with breakfast. 4 mg in am 2 mg in pm glipiZIDE er 10 mg 24 hr extended release oral tablet (1 source) Sulfonylurea Start: 05-23-20 End: 07-03-20 take 1 tablet by mouth once daily in the morning glipiZIDE (GLUCOTROL XL) 10mg 24 hr tablet TAKE 1 TABLET BY MOUTH ONCE DAILY IN THE MORNING 05/23/2020 07/03/2021 Discontinued hyoscyamine sulfate 0.12 mg / methenamine 118 mg / methylene blue 10 mg / phenyl salicylate 36 mg / sodium phosphate, monobasic 40.8 mg oral capsule (16 sources) Oxidation-Reduction Agent Start: 10-23-19 End: 10-25-19 Osorios -Phsal-Hyo (Uribel) 118-10-40.8-36 mg capsule Discontinued 1 {tbl} PO THREE TIMES A DAY as needed October 23, 2020 1:00am October 25, 2020 3:16pm administer with plenty of fluids ipratropium bromide 0.021 mg/actuat metered dose nasal spray (20 sources) Anticholinergic Start: 10-23-19 End: 10-25-19 Ipratropium [place] 0.03 % spray,non-aerosol Discontinued 2 NMA INTRANASAL EVERY 6 HOURS as needed October 23, 2020 1:00am October 25, 2020 3:16pm administer into each nostril Start: 10-23-2020 End: 10-25-2020 take 1 spray(s) nasal route every six hours Ipratropium [place] Discontinued 2 SPRAY INTRANASAL EVERY 6 HOURS October 23, 2020 1:00am October 25, 2020 3:16pm administer into each nostril End: 03-14-2024 ipratropium (Atrovent) 0.02 % nebulizer solution Inhale. 03/14/2024 Discontinued (Med list cleanup) labetalol hydrochloride 200 mg oral tablet (20 sources) beta-Adrenergic Rayna Start: 12-06-2019 End: 06-27-2024 take 1 tablet by mouth twice daily Labetalol 200 MG tablet Discontinued 200 mg PO TWICE A DAY December 06, 2019 12:00am June 27, 2024 1:41pm BLOOD PRESSURE Start: 12-11-2015 End: 04-07-2024 labetalol (TRANDATE) 300 mg tablet Take 200 mg by mouth twice daily. 12/11/2015 04/07/2024 Discontinued take 2 tablets by [facility] twice daily labetalol (NORMODYNE) 100 MG tablet Take 200 mg by mouth 2 times daily 0 Active labetalol (NORMO DYNE) 100 MG tablet Take 150 mg by mouth 2 times daily 0 Active Comment on above: Take 200 mg by mouth twice daily. magnesium oxide 400 mg oral tablet (4 sources) End: 01-13-2022 magnesium oxide 400 mg magnesium tab Take 200 mg by mouth once daily. 01/13/2022 Discontinued take 0.5 tablet by mouth once da david magnesium oxide (MAG-OX) 400 MG tablet Take 400 mg by mouth daily 1/2 tablet 0 Active Comment on above: Take 200 mg by mouth once daily. montelukast 10 mg oral tablet (20 sources) Leukotriene Receptor Antagonist Start: End: take 1 tablet by mouth once daily Montelukast (Singulair) 10 mg tablet Discontinued 10 mg PO daily June 27, 2024 12:00am June 22, 2025 9:14am Start: 10-21-2022 take 1 tablet by lynsey th once daily montelukast (SINGULAIR) 10 mg tablet Take 1 tablet by mouth once daily. 30 tablet 11 10/21/2022 Active Start: 11-08-2019 End: 01-13-2022 montelukast (SINGULAIR) 10 m g tablet Indications: Moderate persistent asthma without complication TAKE 1 TABLET DAILY 90 tablet 3 12/22/2019 01/13/2022 Discontinued Comment on above: TAKE 1 TABLET DAILY Take 1 tablet by lynsey th once daily. Mucus Clearing Device (FLUTTER) ricky (7 sources) Start: 10-13-2017 End: 04-07-2024 Mucus Clearing Device (FLUTTER) ricky Indications: Moderate persistent asthma without complication 1 Device 1 Device 10/13/2017 04/07/2024 Discontinued Start: 10-13-2017 End: 04-07-2024 Mucus Clearing Device (FLUTT ER) ricky Indications: Moderate persistent asthma without complication 1 Device 1 Device 0 10/13/2017 04/07/2024 Discontinued Start: 10-13-2017 Mucus Clearing Device (FLUTTER) ricky Indications: Moderate persistent asthma without complication 1 Device 1 Device 0 10/13/2017 Active Comment on above: 1 Device Multivitamin tablet (5 sources) Start: 10-23-2020 End: 06-27-2024 Multivitamin tablet Disconti nued 1 {tbl} PO DAILY October 23, 2020 1:00am June 27, 2024 1:44pm HEALTH MAINTENANCE Start: 10-23-2020 End: 06-27-2024 Multivitamin tablet Disconti nued 1 {tbl} PO DAILY October 23, 2020 1:00am June 27, 2024 1:44pm potassium chloride 20 meq extended release oral tablet (20 sources) Start: 09-23-2022 End: 06-27-2024 take 2 tablets by mouth once daily Potassium Chloride 20 mEq tablet extended release Discontinued 40 meq PO DAILY 14 7 0 September 23, 2022 1:00am June 27, 2024 1:41pm Start: 09-23-2022 take 40 mEq by mouth once jamin y Potassium Chloride Active 40 MEQ PO DAILY 14 7 September 23, 2022 1:00am Start: 10-23-2020 End: 10-25-2020 take 1 capsule by mouth once daily Potassium Chloride 10 mEq capsule, extended release Discontinued 10 meq PO DAILY October 23, 2020 1:00am October 25, 2020 3:13pm Start: 06-01-2020 End: 01-13-2022 take 1 tablet by mouth once daily potassium chloride (K-TAB) 10 mEq tablet Take 10 mEq by mouth once daily. 06/01/2020 01/13/2022 Discontinued POTASSIUM CHLORI DE PO Take by mouth 0 Active Comment on above: Take 10 mEq by mouth once daily. Pravastatin (1 source) HMG-CoA Reductase Inhibitor End: 02-28-2021 pravastatin sodium (PRAVASTATIN ORAL) Take by mouth. Get to strength next time in the office . 02/28/2021 Discontinued (Course of therapy completed) SITagliptin 100 mg oral tablet (20 sources) Dipeptidyl Peptidase 4 Inhibitor Start: 11-08-2019 End: 10-23-2020 Sitagliptin Phosphate 100 MG tablet Discontinued 75 mg PO DAILY November 08, 2019 1:00am October 23, 2020 3:50pm diabetes Start: 11-08-2019 End: 10-23-2020 take 75 mg by mouth once daily Sitagliptin Phosphate Discontinued 75 MG PO DAILY November 08, 2019 1:00am October 23, 2020 3:50pm take 1 tablet by lynsey th once daily SITagliptin (JANUVIA) 100 MG tablet Take 100 mg by mouth daily 0 Active 10 actuat tiotropium 0.0025 mg/actuat inhalation spray (1 source) Anticholinergic Start: 02-28-2021 End: 01-13-2022 take 2 puff(s) by inhalation once daily tiotropium bromide (SPIRIVA RESPIMAT) 2.5 mcg/actuation inhaler Indications: Severe persistent asthma, unspecified whether complicated Inhale 2 Puffs as instructed once daily. 4 g 5 02/28/2021 01/13/2022 Discontinued Comment on above: Inhale 2 Puffs as in structed once daily. triamcinolone acetonide 0.055 mg/actuat metered dose nasal spray (20 sources) Corticosteroid Start: 11-08-2019 End: 10-23-2020 Triamcinolone Acetonide 1 SPRAY aerosol,spray Discontinued 2 NMA NS AT BEDTIME November 08, 2019 1:00am October 23, 2020 3:50pm allergies Start: 11-08-2019 End: 10-23-2020 Triamcinolone Acetonide Disc ontinued 2 SPRAY NS AT BEDTIME November 08, 2019 1:00am October 23, 2020 3:50pm Triamcinolone Ac etonide (NASACORT ALLERGY 24HR NA) by Nasal route 0 Active vitamin b12 2.5 mg sublingual tablet (20 sources) Vitamin B12 Start: 11-12-2021 End: 04-07-2024 VITAMIN B-12 2,500 mcg subl DISSOLVE 1 TABLET UNDER THE TONGUE ONCE DAILY 0 11/12/2021 04/07/2024 Discontinued Start: 11-08-2019 End: 10-23-2020 Cyanocobalamin (Vitamin B-12 ) 2,500 MCG tablet Discontinued 1000 ug PO DAILY November 08, 2019 1:00am October 23, 2020 3:43pm supplement Start: 11-08-2019 End: 10-23-2020 take 1000 ug by mouth once daily Cyanocobalamin (Vitamin B-12) Discontinued 1000 MCG PO DAILY November 08, 2019 1:00am October 23, 2020 3:43pm Comment on above: DISSOLVE 1 TABLET UN MARY THE TONGUE ONCE DAILY Problems Active Problems Problem Classification Problem Date Documented Date Episodic/Chronic Asthma (20 sources) Uncomplicated moderate persistent asthma; Translations: [Moderate persistent asthma, uncomplicated] Onset: 7 Resolved: 8 Chronic Cancer of breast (20 sources) Intraductal carcinoma in situ of left breast; Translations: [Intraductal carcinoma in situ of left breast] Onset: 9 01-20-2019 Chronic Comment on above: 2019 Cancer of breast (6 sources) Intraductal carcinoma in situ of left breast; Translations: [Ductal carcinoma in situ (DCIS) of left breast] Onset: 9 01-20-2019 Cardiac dysrhythmias (20 sources) Postural orthostatic tachycardia syndrome ; Translations: [Other specified cardiac arrhythmias] Onset: 4 10-23-2020 Chronic Cardiac dysrhythmias (20 sources) Tachycardia; Translations: [Tachycardia, unspecified] Onset: 4 Episodic Diabetes mellitus with complications (20 sources) Type 2 diabetes mellitus; Translations: [Type 2 diabetes mellitus with unspecified complications] Onset: 5 11-30-2017 Chronic Diabetes mellitus without complication (1 source) Type 2 diabetes mellitus without complications; Translations: [Diabetes mellitus without mention of complication, type II or unspecified type, not stated as uncontrolled] Chronic Disorders of lipid metabolism (20 sources) Hyperlipidemia; Translations: [Hyperlipidemia, unspecified] 11-30-2017 Chronic Esophageal disorders (16 sources) Gastroesophageal reflux disease; Translations: [Gastro-esophageal reflux disease without esophagitis] 10-23-2020 Chronic Essential hypertension (20 sources) Hypertensive disorder; Translations: [Essential (primary) hypertension] Onset: 3 08-25-2013 Chronic Comment on above: controlled on meds Genitourinary symptoms and ill-defined conditions (5 sources) Increased frequency of urination; Translations: [Frequency of micturition] Onset: 5 04-07-2024 Episodic Heart valve disorders (20 sources) Mitral valve prolapse; Translations: [Nonrheumatic mitral (valve) prolapse] Onset: 4 11-30-2017 Chronic Immunizations and screening for infectious disease (16 sources) Suspected disease caused by 2019-nCoV; Translations: [Suspected 2019 novel coronavirus infection] 10-23-2020 Episodic Malaise and fatigue (1 source) Chronic fatigue syndrome; Translations: [Chronic fatigue syndrome] Chronic Malaise and fatigue (20 sources) Fatigue; Translations: [Other fatigue] Resolved: 8 01-17-2021 Episodic Menopausal disorders (2 sources) Atrophic vaginitis; Translations: [Postmenopausal atrophic vaginitis] Onset: 5 05-10-2025 Chronic Mycoses (4 sources) Candidiasis of skin; Translations: [Candidiasis of skin and nail] Onset: 5 03-29-2025 Episodic Nausea and vomiting (19 sources) Nausea and vomiting; Translations: [Nausea with vomiting, unspecified] Episodic Nonmalignant breast conditions (2 sources) Mammographic microcalcification found on diagnostic imaging of breast; Translations: [Mammographic microcalcification found on dx imaging of brst] Onset: 9 Episodic Other bone disease and musculoskeletal deformities (1 source) Disorder of bone; Translations: [Disorder of bone density and structure, unspecified] Episodic Other infections; including parasitic (16 sources) Late effects of other and unspecified infectious and parasitic diseases; Translations: [COVID-19 long hauler] Onset: 0 04-07-2024 Chronic Other lower respiratory disease (16 sources) Dyspnea on exertion; Translations: [Other forms of dyspnea] 01-17-2021 Episodic Other lower respiratory disease (8 sources) Shortness of breath; Translations: [Shortness of breath] Onset: 4 03-24-2024 Episodic Other skin disorders (18 sources) Lichen sclerosus et atrophicus; Translations: [Circumscribed scleroderma] Onset: 3 Resolved: 5 04-07-2024 Chronic Peripheral and visceral atherosclerosis (5 sources) Intermittent claudication; Translations: [Peripheral vascular disease, unspecified] Onset: 5 06-22-2025 Chronic Comment on above: Arterial study :R SAMUEL 1.16, triphasic waveforms, abnormal response to exerciseL SAMUEL 0.65, biphasic waveforms, abnormal response to exercise Pneumonia (except that caused by tuberculosis or sexually transmitted disease) (16 sources) Pneumonia; Translations: [Pneumonia, unspecified organism] 10-23-2020 Episodic Prolapse of female genital organs (2 sources) Midline cystocele; Translations: [Cystocele, midline] 04-07-2024 Chronic Residual codes; unclassified (20 sources) Obstructive sleep apnea syndrome; Translations: [Obstructive sleep apnea (adult) (pediatric)] Onset: 8 10-13-2017 Chronic Spondylosis; intervertebral disc disorders; other back problems (20 sources) Backache; Translations: [Dorsalgia, unspecified] Onset: 8 12-03-2017 Episodic Unclassified (1 source) Post-COVID chronic shortness of breath; Translations: [Post-COVID chronic shortness of breath] Onset: 4 Unclassified (1 source) History of COVID-19; Translations: [History of COVID-19] Onset: Past or Other Problems Problem Classification Problem Date Documented Da te Episodic/Chronic Nonspecific chest pain (19 sources) Chest pain; Translations: [Other chest pain] Resolved: 11-30-2017 11-30-2017 Episodic Other infections; including parasitic (20 sources) Personal history of other infectious and parasitic diseases; Translations: [History of COVID-19] Onset: 02-28-2021 Episodic Other lower respiratory disease (19 sources) Dyspnea; Translations: [Shortness of breath] Resolved: 11-30-2017 11-30-2017 Episodic Other lower respiratory disease (2 sources) Other forms of dyspnea; Translations: [Other forms of dyspnea] Onset: 08-01-2024 Episodic Other lower respiratory disease (1 source) Dyspnea, unspecified; Translations: [Dyspnea, unspecified] Onset: 06-27-2024 Episodic Other screening for suspected conditions (not mental disorders or infectious disease) (9 sources) Encounter for screening mammogram for malignant neoplasm of breast; Translations: [Patient encounter status] Onset: 03-04-2022 Episodic Unclassified (19 sources) Herniated urinary bladder; Translations: [Cystocele] Onset: 08-23-2012 Resolved: 11-30-2017 11-30-2017 Results Test Name Value Interpretation Reference Range Facility MR/Malia 06-22-2025 /JUAN [facility] Vascular Surgery [address] [place] [address] OFFICE VISIT Date of Service: 06/22/25 MR#: [id number] Acct: [id number] Name: JOI LONG Rep #: [id number] : [id number] Provider: SANJUANITA Leonard Age/Sex: 70/F Location: [facility] Status: Signed Intake Vital Signs 06/27/24 13:34 06/22/25 09:26 Height 5 ft 4 in Weight: 159 lb BP 162/90 H Blood Pressure Location Rt brachial Position Sitting Respiration 16 Pulse 89 Pulse Source Monitor Temp 98 F Temp Source Temporal Pulse Oximetry (%) 100 Oxygen Delivery Method room air Intake Visit Reasons: Impaired blood flow, LLE Is patient in pain?: No Allergies Corticosteroids (Glucocorticoids) Allergy (Verified 06/22/25 09:29) Rash hydrochlorothiazide (From Zestoretic) Allergy (Verified 06/22/25 09:29) Rash lisinopril (From Zestoretic) Allergy (Verified 06/22/25 09:29) Rash metformin Allergy (Verified 06/22/25 09:29) Rash morphine Allergy (Verified 06/22/25 09:29) Rash Medications ???Medication ???Instructions ???Recorded ???Confirmed ???Type doxepin 25 mg capsule 25 mg PO QHS DEPRESSION/ANXIETY 06/22/25 History duloxetine 60 mg capsule,delayed 60 mg PO DAILY DEPRESSION/ANXIETY 10/23/20 06/22/25 History release (Cymbalta) glimepiride 4 mg tablet 2 mg PO DAILY diabetes 10/25/20 History Held on 09/23/22. Instructions: Hold for 5 days. insulin glargine 100 unit/mL (3 12 unit subcut QPM DIABETES 06/22/25 History mL) subcutaneous pen (Lantus Solostar U-100 Insulin) losartan 50 mg tablet 50 mg PO BID BLOOD PRESSURE 06/22/25 History tamoxifen 20 mg tablet 20 mg PO DAILY BREAST CANCER 10/2506/22/25 History albuterol sulfate 0.63 mg/3 mL 0.63 mg inhalation BID ASTHMA 12/0206/22/25 History solution for nebulization semaglutide 0.25 mg or 0.5 mg (2 0.25 mg subcut SA DIABETES 07/17/2 1 06/22/25 History mg/1.5 mL) subcutaneous pen injector (Ozempic) clobetasol-emollient 0.05 % 1 applic topical BID AFFECTED AREA 09/22/22 06/22/25 History topical cream Plexus Bio Cleanse PO 06/27/24 06/22/25 History Plexus Megax PO 06/27/24 06/22/25 History Plexus Probio5 PO 06/27/24 06/22/25 History Plexus immune PO 06/27/24 06/22/25 History calcium 200 mg (as 1 tab PO QDAY 06/27/24 06/22/25 Hi story citrate)-vitamin D3 6.25 mcg (250 unit) tablet carvedilol 6.25 mg tablet 6.25 mg PO BID 06/27/24 06/22/25 H istory dapagliflozin propanediol 10 mg 10 mg PO QAM 06/27/24 06/22/25 His tory tablet (Farxiga) esomeprazole magnesium 20 mg 40 mg PO DAILY PRN 06/27/24 History tablet,delayed release (Nexium 24HR) mirabegron 25 mg tablet,extended 25 mg PO QDAY 06/27/24 06/22/25 Hi story release 24 hr aspirin 81 mg tablet,delayed 81 mg PO DAILY #30 tabs 06/22/25 1 Rx release (Adult Aspirin Regimen) cilostazol 50 mg tablet 50 mg PO BID #60 tabs 06/22/2506/08 Rx rosuvastatin 20 mg tablet 20 mg PO QDAY #30 tabs 06/22/25 Rx Is last menstrual period known: No Post menopausal: Yes Patient : No Have you fallen in the past year?: No PFSH Medical History (Updated 06/22/25 @ 07:48 by SANJUANITA Leonard) Hypertension Wears contact lenses Wears glasses Arthritis Sleep apnea Shortness of breath on exertion History of irregular heartbeat History of left heart catheterization (LHC) ( 05/20/06) Spinal cord stimulator dysfunction Asthma Type 2 diabetes mellitus POTS (postural orthostatic tachycardia syndrome) Essential hypertension Breast cancer, left breast IBS (irritable bowel syndrome) Mixed hyperlipidemia Osteoarthritis Pneumonia Suspected 2019 novel coronavirus infection Breast cancer Mitral valve prolapse HTN (hypertension) Hyperlipemia GERD (gastroesophageal reflux disease) Surgical History (Updated 06/22/25 @ 09:19 by Roxanne Hadley) Hx of knee surgery ( 2021) Hx of breast surgery ( 2018) History of foot surgery History of appendectomy History of back surgery ( 2005) History of total hysterectomy with bilateral salpingo-oophorectomy (BSO) ( 2017) Family History Father Hypertension Mother Hypertension Social History Smoking Status: Never smoker alcohol intake: current details: occasional substance use type: does not use caffeine: Yes Type: coffee Number of servings: 1 HPI HPI HPI: JOI LONG, is a 70 F who presents to the office today for evaluation of LLE PAD with claudication as referred by her PCP Dr. Anton. She reports that over the last few months she has had cramping and pain in her L calf with walk (more content not included)... Normal [facility] Arterial study reportOrdered By: Gregg Camara on 05-25-2025 Noninvasive arteriosclerosis study report [facility] Cardiovascular Services [address] [place] [address] Lower Ext Art Exam w/ Exercise 05/25/25 1259 MR#: [id number] Acct: [id number] Name: JOI LONG Rep #:[id number] : 1955 70 From: Gregg Ortiz Attending Dr: Dr. Gregg Anton MD atus: REG CLI Ordering Dr: Gregg Anton MD Date: 05/15 10/08 Location: [facility] Sex: F C Admitted: Reason For Study Reason For Study: Claudication Procedure A bilateral lower extremity continuous wave Doppler with analog waveform analysis,segmental pressures,and ankle brachial indexes with exercise. Left Segmental Pressures Left high thigh = >254mmHg. Left low thigh = 154mmHg. Left calf = 134mmHg. Left posterior tibial artery = 104mmHg. Left dorsalis pedis artery = 110mmHg. Left digit = 33 mmHg. The left dorsalis pedis waveforms are biphasic. The left posterior tibial artery waveforms are biphasic. Right Segmental Pressures Right brachial= 169mmHg. Right posterior tibial artery = 192mmHg. Right dorsalispedis artery = 196mmHg. Right digit = 109 mmHg. The right dorsalis pedis waveforms are triphasic. The right posterior tibial artery waveforms are triphasic. Indices The right ankle brachial index by the dorsalis pedis is 1.16. The right ankle brachial index by the posterior tibial artery is 1.14. The right digital-brachial index is 0.64. The right post exercise ankle brachial index is 0.77. The left ankle brachial index by the dorsalis pedis is 0.65. The left ankle brachial index by the posterior tibial artery is 0.62. The left digital-brachial index is 0.20. The left post exercise ankle brachial index is 0.30. VL/Lower Ext Art Exam w/ Exercise Interpretation Summary Right SAMUEL 1.16, normal. Doppler/PVR waveforms of the right leg normal at rest. TBI diminished, pedal/digit disease vs spasm. Right lower extremity with abnormal response to exercise and post exercise SAMUEL in the moderate category. Left SAMUEL 0.65, moderate arterial insufficiency. Doppler/PVR waveforms and segmental pressures reveal distal SFA/popliteal disease. Left lower extremity with abnormal response to exercise and post exercise SAMUEL inthe severe category. Ordering Physician: Gregg Anton Referring Physician: GREGG ANTON MD Performed By: Mary Beth Neal RVT and Student 05/25/25 1507 Date _ Gregg Camara MD CC: Dr. Gregg Anton MD ~ Date Dictated: 05/25/259 Date Transcribed: 05/25/251506 Professor Of Environmental Studies: Signed [facility] Work Phone: Lower Ext Art Exam w/ Exerci bob 05-25-2025 Lower Ext Art Exam w/ Exercise [facility] Cardiovascular Services [address] [place] [address] Lower Ext Art Exam w/ Exercise 05/25/25 1259 MR#: [id number] Acct: [id number] Name: JOI LONG Rep #: [id number] : 1955 70 From: Gregg Camara MD Attending Dr: Dr. Gregg Anton MD Status: REG CL I Ordering Dr: Gregg Anton MD Date: 05/25/25 Location: [facility] Sex: F C Admitted: Reason For Study Reason For Study: Claudication Procedure A bilateral lower extremity continuous wave Doppler with analog waveform analysis,segmental pressures,and ankle brachial indexes with exercise. Left Segmental Pressures Left high thigh = >254mmHg. Left low thigh = 154mmHg. Left calf = 134mmHg. Left posterior tibial artery = 104mmHg. Left dorsalis pedis artery = 110mmHg. Left digit = 33 mmHg. The left dorsalis pedis waveforms are biphasic. The left posterior tibial artery waveforms are biphasic. Right Segmental Pressures Right brachial= 169mmHg. Right posterior tibial artery = 192mmHg. Right dorsalis pedis artery = 196mmHg. Right digit = 109 mmHg. The right dorsalis pedis waveforms are triphasic. The right posterior tibial artery waveforms are triphasic. Indices The right ankle brachial index by the dorsalis pedis is 1.16. The right ankle brachial index by the posterior tibial artery is 1.14. The right digital-brachial index is 0.64. The right post exercise ankle brachial index is 0.77. The left ankle brachial index by the dorsalis pedis is 0.65. The left ankle brachial index by the posterior tibial artery is 0.62. The left digital-brachial index is 0.20. The left post exercise ankle brachial index is 0.30. VL/Lower Ext Art Exam w/ Exercise Interpretation Summary Right SAMUEL 1.16, normal. Doppler/PVR waveforms of the right leg normal at rest. TBI diminished, pedal/digit disease vs spasm. Right lower extremity with abnormal response to exercise and post exercise SAMUEL in the moderate category. Left SAMUEL 0.65, moderate arterial insufficiency. Doppler/PVR waveforms and segmental pressures reveal distal SFA/popliteal disease. Left lower extremity with abnormal response to exercise and post exercise SAMUEL in the severe category. Ordering Physician: Gregg Anton Referring Physician: GREGG ANTON MD Performed By: Mary Beth Neal RVT and Student 05/25/25 0197 Date Gregg Camara MD CC: Dr. Gregg Anton MD Date Dictated: 05/25/25 1259 Date Transcribed: 05/25/251506 Professor Of Environmental Studies: Signed Normal [facility] Lumbar Spine 2 or 3 Viewson 05-11-2025 Lumbar Spine 2 or 3 Views [facility] Imaging Services [address] [place] [address] Lumbar Spine 2 or 3 Views MR#: [id number] Acct: [id number] Name: JOI LONG Rep #: [id number] : 1955 F 70 From: Ray Ortiz PCP: Dr. Gregg Anton MD Status: REG CLI Study: Lumbar Spine 2 or 3 Views Date of Exam: Exam# [id number] Ordering Dr: Gregg Anton MD PROCEDURE: LUMBAR SPINE 2 OR 3 VIEWS 05/11/2025 REASON FOR EXAM: LEG PAIN AND WEAKNESS TECHNIQUE: LUMBAR SPINE 2 OR 3 VIEWS COMPARISON: None. RAD/Lumbar Spine 2 or 3 Views IMPRESSION: At least moderate arterial calcification is seen. Degenerative changes are seen throughout the visualized lower thoracic and lumbar spine. Lumbar levoscoliosis is centered about the L2-L3 level. Postsurgical changes including laminectomies from L3 through L4, with bilateral posterior bone graft from L3 through L5 also noted.. Disc narrowing is seen prominently from L1 through L4, with osseous reactive changes at each level. Posterior facet hypertrophy in the mid to lower lumbar spine also noted. No evidence of spondylolysis or spondylolisthesis. Minimal sacroiliac joint degenerative changes are noted. No acute fracture is seen. Reading Location: [place] [address] CC: Dr. Gregg Anton MD Professor Of Environmental Studies: Signed Normal [facility] CNOVon 05-10-2025 CNOV Office Visit (OBGYWM ) -- JOI LONG ([id number]) 1955 F Date Time Provider Department 05/10/25 11:10 AM NORA BARTON OBGYWM During your visit today, we recorded the following information about you: Blood pressure Weight 124/62 72.1 kg Nora Barton MD 05/10/2025 11:59 AM Signed Joi Long is a 70 year old female who presents for problem visit for f/u vulvar irritation. HPI: 70 YOF w/ vulvar pruritus, improving. Using estrogen cream twice a week w/ digital application. Using clotrimazole bid. Myrbetriq helping, gets up 1 time a night rather than 2-3 and no burning. Feels she is getting empty. Finished keflex for + urine culture. OB History Gravida4 Para3 Term3 Preterm0 AB1 Living3 SAB1 IAB0 Ectopic0 Multiple0 Live Births0 Medication Manager History LMP: 07/04/2007, Hysterectomy Age at Menarche: Age at First : Age at Menopause: Medication Manager History Comments: Sexual Activity: Yes; Male; bilateral tubal ligation Contraception: Surgical PAST MEDICAL HISTORY Diagnosis Date Abnormal Papanicolaou smear of vagina and vaginal HPV Asthma (HCC) Breast cancer (HCC) 2019 left Diabetes mellitus (HCC) Fibromyalgia GERD (gastroesophageal reflux disease) HLD (hyperlipidemia) HTN (hypertension) Lichen sclerosus Mitral valve disorders(424.0) SUMA on CPAP resolved Other chest pain Other malaise and fatigue PMH - PAST MEDICAL HISTORY OF ELEVATED LIPIDS PMH - PAST MEDICAL HISTORY OF Irregular Heartbeat POTS (postural orthostatic tachycardia syndrome) Shortness of breath PAST SURGICAL HISTORY Procedure Laterality Date APPENDECTOMY BACK SURGERY HX 2001, 2004, 2005 spinal fusion BLADDER SURGERY HX 12/2015 adjust bladder sling BREAST LUMPECTOMY HX 12/2018 COLONOSCOPY 2008 COLPOSCOPY CERVIX UPPER/ADJACENT VAGINA 2002 ENDOMETRIAL BX W/WO ENDOCERVIX BX W/O DILAT SPX 2002 KNEE SURGERY HX 07/2021 LAP VAG HYST <=250 G RMV T/O 03/08/2015 LIG/TRNSXJ FLP TUBE ABDL/VAG APPR UNI/BI Tubal ligation S LEAD/SPINAL CORD STIM 11/2017 removal SPINAL CORD STIM PERCT SCS ELCT 2002 TONSILLECTOMY PRIMARY/SECONDARY Tonsillectomy FAMILY HISTORY Problem Relation Age of Onset Heart Mother Pace Maker/Irregular Heartbeat Hypertension Mother Heart Father Hypertension Father Lipids Father High Cholesterol Hypertension Brother SOCIAL HISTORY[1] Current Outpatient Medications Medication Sig ofloxacin (OCUFLOX) 0.3 % ophthalmic solution INSTILL 1 DROP INTO RIGHT EYE 4 TIMES DAILY 3 DAYS PRIOR TO SURGERY AND CONTINUING 4 TIMES DAILY AFTER SURGERY clotrimazole (LOTRIMIN) 1 % cream APPLY CREAM TOPICALLY TO AFFECTED AREA TWICE DAILY FOR 14 DAYS HUMALOG KWIKPEN INSULIN 100 unit/mL INJECT 8 UNITS SUBCUTANEOUSLY BEFORE BREAKFAST OR LUNCH, AND 4 UNITS BEFORE LAST MEAL. DEXCOM G7 SENSOR ricky CHANGE SENSOR EVERY 10 DAYS losartan (COZAAR) 50 mg tablet mirabegron (MYRBETRIQ) 50 mg Tb24 Take 1 tablet by mouth once daily. insulin glargine (LANTUS SOLOSTAR U-100 INSULIN) 100 unit/mL (3 mL) Inject subcutaneously. 12 units daily dapagliflozin propanediol (FARXIGA) 10 mg tablet Take 10 mg by mouth daily with breakfast. estradiol (ESTRACE) 0.01 % (0.1 mg/gram) vaginal cream Use 0.5 g vaginally two times a week. use small amount to vaginal opening twice weekly carvedilol (COREG) 6.25 mg tablet Take 6.25 mg by mouth. tamoxifen (NOLVADEX) 20 mg tablet Take 1 tablet by mouth once daily. ipratropium-albuterol (DUONEB) 0.5 mg-3 mg(2.5 mg base)/3 mL nebu Inhale 3 mL as instructed four times daily. doxepin capsule 25 mg Take 25 mg by mouth daily at bedtime. budesonide-formoterol (SYMBICORT) 160-4.5 mcg/actuation inhaler Inhale 2 Puffs as instructed twice daily. semaglutide (OZEMPIC) 0.25 mg or 0.5 mg(2 mg/1.5 mL) pnij Inject 0.25 mg subcutaneously one time a week. DULoxetine (CYMBALTA) 60 mg capsule Take 60 mg by mouth every morning. MEDICATION, NON-DATABASE Take 1 Each by mouth once daily. Slim MEDICATION, NON-DATABASE Take 2 capsules by mouth daily at bedtime. Biocleanse THERAPEUTIC MULTIVITAMIN TAB Take one(1) tablet daily. mirabegron (MYRBETRIQ) 50 mg Tb24 Take 1 tablet by mouth once daily. Patient should start on May 08, 2025. clobetasol (TEMOVATE) 0.05 % cream APPLY 1/4 OF A GRAM TO GENITALIA TWICE DAILY DIRECTED (Patient not taking: Reported on 05/10/2025) budesonide-formoterol (SYMBICORT) 160-4.5 mcg/actuation inhaler Inhale 2 Puffs as instructed two times a day. No current facility-administered medications for this visit. Allergies As of Date: 05/10/2025 Allergen Noted Reaction STEROIDS [CORTICOSTEROIDS (GLUCOC*04/07/2024 Rash MORPHINE 08/28/2005 Rash METFORMIN 04/07/2024 Diarrhea RAMIPRIL 04/07/2024 Cough ZESTORETIC [LISINOPRIL-HYDROCHLOR* Rash and Cough Fully Assessed 03/29/2025 Allergies and current medication updated:Yes SENSITIVE EX (more content not included)... Normal [facility] Absolute lymphocyte countOrd ered By: Grgeg Anton on 04-28-2025 Lymphocytes Auto (Unsp spec) [#/Vol] 2.01 10*3/uL 0.83-4.51 [facility] Absolute neutrophil countOrd ered By: Gregg Anton on 04-28-2025 Neutrophils (Bld) [#/Vol] 3.9 10*3/uL 2.0-7.7 [facility] Anion gap in Serum or Plasma Ordered By: Gregg Anton on 04-28-2025 Anion gap [Moles/Vol] 12 mmol/L - [facility] Automated lymphocyte count a s percentage of total leukocytesOrdered By: Gregg Anton on 04-28-2025 Lymphocytes/100 WBC Auto (Unsp spec) 30.2 % - [facility] BUN/creatinine ratioOrdered By: Gregg Anton on 04-28-2025 Urea nitrogen/Creatinine [Mass ratio] 13.9 mg/mg 10- [facility] Basophil percentageOrdered B y: Gregg Anton on 04-28-2025 Basophils/100 WBC (Bld) 0.8 % 0-1 [facility] Bilirubin, totalOrdered By: Gregg Anton on 04-28-2025 Bilirubin [Mass/Vol] 0.34 mg/dL 0.00-1.30 [facility] CBC W/Diff, Automatedon 04-14 Absolute Lymph 2.01 X10 3/uL Normal 0.83-4.51 [facility] Comment on above: Performed By: #### L 100.0100, L501.9985, L500.4050, L502.0250 #### [facility] Laboratory [address] [place], [address] Absolute Neut 3.9 X10 3/uL Normal 2.0-7.7 [facility] Comment on above: Performed By: #### L 100.0100, L501.9985, L500.4050, L502.0250 #### [facility] [address] [place], [address] Basophils/100 WBC (Bld) 0.8 % Normal 0-1 [facility] Comment on above: Performed By: #### L 100.0100, L501.9985, L500.4050, L502.0250 #### [facility] [address] [place], [address] Eosinophils/100 WBC (Bld) 2.4 % Normal 0-5 [facility] Comment on above: Performed By: #### L 100.0100, L501.9985, L500.4050, L502.0250 #### [facility] [address] [place], [address] Erythrocyte distribution width (RBC) [Ratio] 12.4 % Normal 11.6-14.6 [facility] Comment on above: Performed By: #### L 100.0100, L501.9985, L500.4050, L502.0250 #### [facility] [address] [place], [address] Hematocrit (Bld) [Volume fraction] 41.5 % Normal 37-47 [facility] Comment on above: Performed By: #### L 100.0100, L501.9985, L500.4050, L502.0250 #### [facility] [address] [place], [address] Hemoglobin (Bld) [Mass/Vol] 13.9 g/dL Normal 12.0-15.0 [facility] Comment on above: Performed By: #### L 100.0100, L501.9985, L500.4050, L502.0250 #### [facility] [address] [place], [address] IG% 0.300 Normal 0.0-0.9 [facility] Comment on above: Result Comment: IG% - Immature Granulocytes (promyelocytes, myelocytes and metamyelocytes) > 1% indicates that a LEFT SHIFT is Present. Performed By: #### L 100.0100, L501.9985, L500.4050, L502.0250 #### [facility] [address] [place], [address] Lymphocytes/100 WBC (Bld) 30.2 % Normal 19-41 [facility] Comment on above: Performed By: #### L 100.0100, L501.9985, L500.4050, L502.0250 #### [facility] [address] [place], [address] MCH (RBC) [Entitic mass] 31.0 pg Normal 27.0-32.0 [facility] Comment on above: Performed By: #### L 100.0100, L501.9985, L500.4050, L502.0250 #### [facility] [address] [place], [address] MCHC (RBC) [Mass/Vol] 33.5 g/dL Normal 32-36 [facility] Comment on above: Performed By: #### L 100.0100, L501.9985, L500.4050, L502.0250 #### [facility] [address] [place], [address] MCV (RBC) [Entitic vol] 92.6 fL Normal 81-99 [facility] Comment on above: Performed By: #### L 100.0100, L501.9985, L500.4050, L502.0250 #### [facility] [address] [place], [address] Monocytes/100 WBC (Bld) 7.1 % Normal 0-10 [facility] Comment on above: Performed By: #### L 100.0100, L501.9985, L500.4050, L502.0250 #### [facility] [address] [place], [address] Neutrophils/100 WBC (Bld) 59.2 % Normal 47-70 [facility] Comment on above: Performed By: #### L 100.0100, L501.9985, L500.4050, L502.0250 #### [facility] [address] [place], [address] Nucleated RBC (Bld) [#/Vol] 0 10*3/uL Normal 0-5 [facility] Comment on above: Performed By: #### L 100.0100, L501.9985, L500.4050, L502.0250 #### [facility] [address] [place], [address] Platelet mean volume (Bld) [Entitic vol] 10.3 fL Normal 6.2-12.0 [facility] Comment on above: Performed By: #### L 100.0100, L501.9985, L500.4050, L502.0250 #### [facility] [address] [place], [address] Platelets (Bld) [#/Vol] 201 10*3/uL Normal 150-450 [facility] Comment on above: Performed By: #### L 100.0100, L501.9985, L500.4050, L502.0250 #### [facility] [address] [place], [address] RBC (Bld) [#/Vol] 4.48 10*6/uL Normal 4.2-5.4 [facility] Comment on above: Performed By: #### L 100.0100, L501.9985, L500.4050, L502.0250 #### [facility] [address] [place], [address] RDW SD 42.1 fl Normal 35.1-43.9 [facility] Comment on above: Performed By: #### L 100.0100, L501.9985, L500.4050, L502.0250 #### [facility] [address] [place], [address] WBC (Bld) [#/Vol] 6.7 10*3/uL Normal 4.4-11.0 [facility] Comment on above: Performed By: #### L 100.0100, L501.9985, L500.4050, L502.0250 #### [facility] [address] [place], [address] Absolute Neut Normal 2.0-7.7 [facility] Comment on above: Result Comment: UTO. PT TO RETURN TO OFFICE Performed By: #### L 100.0100, L500.4050, L502.0250 ####[facility] [address] [place], [address] HCT Normal 37-47 [facility] Comment on above: Result Comment: UTO. PT TO RETURN TO OFFICE Performed By: #### L 100.0100, L500.4050, L502.0250 ####[facility] [address] [place], [address] HGB Normal 12.0-15.0 [facility] Comment on above: Result Comment: UTO. PT TO RETURN TO OFFICE Performed By: #### L 100.0100, L500.4050, L502.0250 ####[facility] [address] [place], [address] MCH Normal 27.0-32.0 [facility] Comment on above: Result Comment: UTO. PT TO RETURN TO OFFICE Performed By: #### L 100.0100, L500.4050, L502.0250 ####[facility] [address] [place], [address] MCHC Normal 32-36 [facility] Comment on above: Result Comment: UTO. PT TO RETURN TO OFFICE Performed By: #### L 100.0100, L500.4050, L502.0250 ####[facility] [address] [place], [address] MCV Normal 81-99 [facility] Comment on above: Result Comment: UTO. PT TO RETURN TO OFFICE Performed By: #### L 100.0100, L500.4050, L502.0250 ####[facility] [address] [place], [address] NEUT% Normal 47-70 [facility] Comment on above: Result Comment: UTO. PT TO RETURN TO OFFICE Performed By: #### L 100.0100, L500.4050, L502.0250 ####[facility] [address] [place], [address] PLT Normal 150-450 [facility] Comment on above: Result Comment: UTO. PT TO RETURN TO OFFICE Performed By: #### L 100.0100, L500.4050, L502.0250 ####[facility] [address] [place], [address] RBC Normal 4.2-5.4 [facility] Comment on above: Result Comment: UTO. PT TO RETURN TO OFFICE Performed By: #### L 100.0100, L500.4050, L502.0250 ####[facility] [address] [place], [address] RDW CV Normal 11.6-14.6 [facility] Comment on above: Result Comment: UTO. PT TO RETURN TO OFFICE Performed By: #### L 100.0100, L500.4050, L502.0250 ####[facility] [address] [place], [address] RDW SD Normal 35.1-43.9 [facility] Comment on above: Result Comment: UTO. PT TO RETURN TO OFFICE Performed By: #### L 100.0100, L500.4050, L502.0250 ####[facility] [address] [place], [address] WBC Normal 4.4-11.0 [facility] Comment on above: Result Comment: UTO. PT TO RETURN TO OFFICE Performed By: #### L 100.0100, L500.4050, L502.0250 ####[facility] [address] [place], [address] Carbon dioxide, total [Moles /volume] in Central venous bloodOrdered By: Gregg Anton on 04-28-2025 CO2 [Moles/Vol] 25.1 mmol/L 21.0-32.0 [facility] Chloride assayOrdered By: Jose Anton on 04-28-2025 Chloride [Moles/Vol] 105 mmol/L 98-108 [facility] Comprehensive Metabolic Prof ilon 04-28-2025 Albumin [Mass/Vol] 4.0 g/dL Normal 3.4-4.8 [facility] Comment on above: Performed By: #### L 100.0100, L501.9985, L500.4050, L502.0250 ####[facility] [address] [place], [address] Albumin/Globulin [Mass ratio] 1.6 {ratio} Normal 0.9-2.4 [facility] Comment on above: Performed By: #### L 100.0100, L501.9985, L500.4050, L502.0250 ####[facility] [address] [place], [address] ALK PHOS 78 U/L Normal 35-104 [facility] Comment on above: Performed By: #### L 100.0100, L501.9985, L500.4050, L502.0250 ####[facility] [address] [place], [address] ALT [Catalytic activity/Vol] 26 U/L Normal <=34 [facility] Comment on above: Performed By: #### L 100.0100, L501.9985, L500.4050, L502.0250 ####[facility] [address] [place], [address] AST [Catalytic activity/Vol] 30 U/L Normal <=31 [facility] Comment on above: Performed By: #### L 100.0100, L501.9985, L500.4050, L502.0250 ####[facility] [address] [place], [address] Bilirubin [Mass/Vol] 0.34 mg/dL Normal 0.00-1.30 [facility] Comment on above: Performed By: #### L 100.0100, L501.9985, L500.4050, L502.0250 ####[facility] [address] [place], [address] BUN/CRE 13.9 RATIO Normal 10-20 [facility] Comment on above: Performed By: #### L 100.0100, L501.9985, L500.4050, L502.0250 ####[facility] [address] [place], [address] Calcium [Mass/Vol] 9.6 mg/dL Normal 7.6-11.0 [facility] Comment on above: Performed By: #### L 100.0100, L501.9985, L500.4050, L502.0250 ####[facility] [address] [place], [address] Chloride [Moles/Vol] 105 mmol/L Normal 98-108 [facility] Comment on above: Performed By: #### L 100.0100, L501.9985, L500.4050, L502.0250 ####[facility] [address] [place], [address] CO2 [Moles/Vol] 25.1 mmol/L Normal 21.0-32.0 [facility] Comment on above: Performed By: #### L 100.0100, L501.9985, L500.4050, L502.0250 ####[facility] [address] [place], [address] Creatinine [Mass/Vol] 0.93 mg/dL Normal 0.70-1.20 [facility] Comment on above: Performed By: #### L 100.0100, L501.9985, L500.4050, L502.0250 ####[facility] [address] [place], [address] GAP 12 Normal 5-15 [facility] Comment on above: Performed By: #### L 100.0100, L501.9985, L500.4050, L502.0250 ####[facility] [address] [place], [address] GFR/1.73 sq M.predicted among non-blacks MDRD (S/P/Bld) [Vol rate/Area] 66 mL/min/{1.73_m2} Normal >60 [facility] Comment on above: Result Comment: mL/m in/1.73m2 CKD-EPI Creatinine Equation (2020) Performed By: #### L 100.0100, L501.9985, L500.4050, L502.0250 ####[facility] [address] [place], [address] Globulin (S) [Mass/Vol] 2.4 g/dL Normal 2.2-4.2 [facility] Comment on above: Performed By: #### L 100.0100, L501.9985, L500.4050, L502.0250 ####[facility] [address] [place], [address] Glucose [Mass/Vol] 197 mg/dL High 70-99 [facility] Comment on above: Performed By: #### L 100.0100, L501.9985, L500.4050, L502.0250 ####[facility] [address] [place], [address] Potassium [Moles/Vol] 4.0 mmol/L Normal 3.3-5.1 [facility] Comment on above: Performed By: #### L 100.0100, L501.9985, L500.4050, L502.0250 ####[facility] [address] [place], [address] Sodium [Moles/Vol] 141 mmol/L Normal 133-145 [facility] Comment on above: Performed By: #### L 100.0100, L501.9985, L500.4050, L502.0250 ####[facility] [address] [place], [address] T PROT 6.5 g/dL Normal 5.9-8.4 [facility] Comment on above: Performed By: #### L 100.0100, L501.9985, L500.4050, L502.0250 ####[facility] [address] [place], [address] Urea nitrogen [Mass/Vol] 13 mg/dL Normal 4-19 [facility] Comment on above: Performed By: #### L 100.0100, L501.9985, L500.4050, L502.0250 ####[facility] [address] [place], [address] ALB Normal 3.4-4.8 [facility] Comment on above: Result Comment: UTO. PT TO RETURN TO OFFICE Performed By: #### L 100.0100, L500.4050, L502.0250 ####[facility] [address] [place], [address] ALK PHOS Normal 35-104 [facility] Comment on above: Result Comment: UTO. PT TO RETURN TO OFFICE Performed By: #### L 100.0100, L500.4050, L502.0250 ####[facility] [address] [place], [address] ALT Normal <=34 [facility] Comment on above: Result Comment: UTO. PT TO RETURN TO OFFICE Performed By: #### L 100.0100, L500.4050, L502.0250 ####[facility] [address] [place], [address] AST Normal <=31 [facility] Comment on above: Result Comment: UTO. PT TO RETURN TO OFFICE Performed By: #### L 100.0100, L500.4050, L502.0250 ####[facility] [address] [place], [address] BUN Normal 4-19 [facility] Comment on above: Result Comment: UTO. PT TO RETURN TO OFFICE Performed By: #### L 100.0100, L500.4050, L502.0250 ####[facility] [address] [place], [address] BUN/CRE Normal 10-20 [facility] Comment on above: Result Comment: UTO. PT TO RETURN TO OFFICE Performed By: #### L 100.0100, L500.4050, L502.0250 ####[facility] [address] [place], [address] Calcium Normal 7.6-11.0 [facility] Comment on above: Result Comment: UTO. PT TO RETURN TO OFFICE Performed By: #### L 100.0100, L500.4050, L502.0250 ####[facility] [address] [place], [address] CL Normal 98-108 [facility] Comment on above: Result Comment: UTO. PT TO RETURN TO OFFICE Performed By: #### L 100.0100, L500.4050, L502.0250 ####[facility] [address] [place], [address] CO2 Normal 21.0-32.0 [facility] Comment on above: Result Comment: UTO. PT TO RETURN TO OFFICE Performed By: #### L 100.0100, L500.4050, L502.0250 ####[facility] [address] [place], [address] CREAT,SERUM Normal 0.70-1.20 [facility] Comment on above: Result Comment: UTO. PT TO RETURN TO OFFICE Performed By: #### L 100.0100, L500.4050, L502.0250 ####[facility] [address] [place], [address] eGFR Normal >60 [facility] Comment on above: Result Comment: UTO. PT TO RETURN TO OFFICE Performed By: #### L 100.0100, L500.4050, L502.0250 ####[facility] [address] [place], [address] GAP Normal 5-15 [facility] Comment on above: Result Comment: UTO. PT TO RETURN TO OFFICE Performed By: #### L 100.0100, L500.4050, L502.0250 ####[facility] [address] [place], [address] GLU Normal 70-99 [facility] Comment on above: Result Comment: UTO. PT TO RETURN TO OFFICE Performed By: #### L 100.0100, L500.4050, L502.0250 ####[facility] [address] [place], [address] Potassium Normal 3.3-5.1 [facility] Comment on above: Result Comment: UTO. PT TO RETURN TO OFFICE Performed By: #### L 100.0100, L500.4050, L502.0250 ####[facility] [address] [place], [address] T BILI Normal 0.00-1.30 [facility] Comment on above: Result Comment: UTO. PT TO RETURN TO OFFICE Performed By: #### L 100.0100, L500.4050, L502.0250 ####[facility] [address] [place], [address] T PROT Normal 5.9-8.4 [facility] Comment on above: Result Comment: UTO. PT TO RETURN TO OFFICE Performed By: #### L 100.0100, L500.4050, L502.0250 ####[facility] [address] [place], [address] Comprehensive Metabolic Profil Normal 133-145 [facility] Comment on above: Result Comment: UTO. PT TO RETURN TO OFFICE Performed By: #### L 100.0100, L500.4050, L502.0250 ####[facility] [address] [place], [address] Eosinophil percentageOrdered By: Gregg Anton on 04-28-2025 Eosinophils/100 WBC (Bld) 2.4 % 0-5 [facility] Erythrocyte distribution wid th ratioOrdered By: Gregg Anton on 04-28-2025 Erythrocyte distribution width (RBC) [Ratio] 12.4 % 11.6-14.6 [facility] Erythrocyte distribution wid th standard deviationOrdered By: Gregg Anton on 04-28-2025 Erythrocyte distribution width (RBC) [Ratio] 42.1 fl 35.1-43.9 [facility] Glomerular filtration rate ( GFR) estimation/1.73 sq m using serum, plasma, or whole bOrdered By: Gregg Anton on 04-28-2025 GFR/1.73 sq M.predicted among non-blacks MDRD (S/P/Bld) [Vol rate/Area] 66 mL/min/{1.73_m2} >60 [facility] Comment on above: mL/min/1.73m2 CKD-EP I Creatinine Equation (2020) Hematocrit Auto (Bld) [Volum e fraction]Ordered By: Gregg Anton on 04-28-2025 Hematocrit (Bld) [Volume fraction] 41.5 % 37-47 [facility] Hemoglobin A1con 04-28-2025 HbA1c (Bld) [Mass fraction] 7.0 % High <=5.6 [facility] Comment on above: Result Comment: Norm al < 5.7 % Prediabetic 5.7 - 6.4 % Diabetic >or= 6.5 % Please note range changes. Performed By: #### L 100.0100, L501.9985, L500.4050, L502.0250 ####[facility] [address] [place], [place], [address] Hemoglobin A1c percentageOrd ered By: Gregg Anton on 04-28-2025 HbA1c (Bld) [Mass fraction] 7.0 % High <5.7 [facility] Comment on above: Normal < 5.7 % Predi abetic 5.7 - 6.4 % Diabetic >or= 6.5 % Please note range changes. Hemoglobin measurementOrdere d By: Gregg Anton on 04-28-2025 Hemoglobin (Bld) [Mass/Vol] 13.9 g/dL 12.0-15.0 [facility] Immature granulocytes/100 WB C Auto (Bld)Ordered By: Gregg Anton on 04-28-2025 Immature granulocytes/100 WBC (Bld) 0.300 % 0.0-0.9 [facility] Comment on above: IG% - Immature Granu locytes (promyelocytes, myelocytes and metamyelocytes) > 1% indicates that a LEFT SHIFT is Present. Laboratory - Chemistry and C hemistry - challengeOrdered By: Gregg Anton on 04-28-2025 AST [Catalytic activity/Vol] 30 U/L <32 [facility] MCV (mean corpuscular volume ) determinationOrdered By: Gregg Anton on 04-28-2025 MCV (RBC) [Entitic vol] 92.6 fL 81-99 [facility] Mean corpuscular hemoglobin (MCH) determinationOrdered By: Gregg Anton on 04-28-2025 MCH (RBC) [Entitic mass] 31.0 pg 27.0-32.0 [facility] Mean corpuscular hemoglobin concentration (MCHC) determinationOrdered By: Gregg Anton on 04-28-2025 MCHC (RBC) [Mass/Vol] 33.5 g/dL 32-36 [facility] Mean platelet volume determi nationOrdered By: Gregg Anton on 04-28-2025 Platelet mean volume (Bld) [Entitic vol] 10.3 fL 6.2-12.0 [facility] Microalb:Creat Ratio,Random URon 04-28-2025 Creatinine [Mass/Vol] 65.00 mg/dL Normal 28.00- 217. 00 [facility] Comment on above: Performed By: #### L 100.0100, L501.9985, L500.4050, L502.0250 #### [facility] [address] [place], [address] MALB:CREAT 38.8 mg/g CRE High <30 mg/g CRE [facility] Comment on above: Performed By: #### L 100.0100, L501.9985, L500.4050, L502.0250 #### [facility] [address] [place], [address] MICROALBUMIN,UR 25.2 mg/L Normal <20 mg/L [facility] Comment on above: Performed By: #### L 100.0100, L501.9985, L500.4050, L502.0250 #### [facility] [address] [place], [address] MALB:CREAT Normal <30 mg/g CRE [facility] Comment on above: Result Comment: UTO. PT TO RETURN TO OFFICE Performed By: #### L 100.0100, L500.4050, L502.0250 ####[facility] [address] [place], [address] MICROALBUMIN,UR Normal <20 mg/L [facility] Comment on above: Result Comment: UTO. PT TO RETURN TO OFFICE Performed By: #### L 100.0100, L500.4050, L502.0250 ####[facility] [address] [place], [address] UR CREAT Normal 28.00-217. 00 [facility] Comment on above: Result Comment: UTO. PT TO RETURN TO OFFICE Performed By: #### L 100.0100, L500.4050, L502.0250 ####[facility] [address] [place], [place], [phone] Monocyte percentageOrdered B y: Gregg Anton on 04-28-2025 Monocytes/100 WBC (Bld) 7.1 % 0-10 [facility] Neutrophil percentageOrdered By: Gregg Anton on 04-28-2025 Neutrophils/100 WBC (Bld) 59.2 % 47-70 [facility] Nucleated red blood cell per centageOrdered By: Gregg Anton on 04-28-2025 Nucleated RBC/100 WBC (Bld) [Ratio] 0 % 0-5 [facility] Platelet countOrdered By: Jose Anton on 04-28-2025 Platelets (Bld) [#/Vol] 201 10*3/uL 150-450 [facility] Potassium measurement (mass/ volume)Ordered By: Gregg Anton on 04-28-2025 Potassium (Unsp spec) [Mass/Vol] 4.0 mmol/L 3.3-5.1 [facility] RBC Auto (Bld) [#/Vol]Ordere d By: Gregg Anton on 04-28-2025 RBC (Bld) [#/Vol] 4.48 10*6/uL 4.2-5.4 [facility] Random urine creatinine nidhi urement (mass/volume)Ordered By: Gregg Anton on 04-28-2025 Creatinine Unsp time (U) [Mass/Vol] 65.00 mg/dL 28.00-217. 00 [facility] Serum creatinine measurement (mass/volume)Ordered By: Gregg Anton on 04-28-2025 Creatinine [Mass/Vol] 0.93 mg/dL 0.70-1.20 [facility] Serum globulin measurementOr dered By: Gregg Anton on 04-28-2025 Globulin (S) [Mass/Vol] 2.4 g/dL 2.2-4.2 [facility] Serum glucose measurement (m ass/volume)Ordered By: Gregg Anton on 04-28-2025 Glucose [Mass/Vol] 197 mg/dL High 70-99 [facility] Serum or plasma alanine river otransferase (ALT) measurementOrdered By: Gregg Anton on 04-28-2025 ALT [Catalytic activity/Vol] 26 U/L <35 [facility] Serum or plasma albumin nidhi urement (mass/volume)Ordered By: Gregg Anton on 04-28-2025 Albumin [Mass/Vol] 4.0 g/dL 3.4-4.8 [facility] Serum or plasma albumin/glob ulin mass ratioOrdered By: Gregg Anton on 04-28-2025 Albumin/Globulin [Mass ratio] 1.6 {ratio} 0.9-2.4 [facility] Serum or plasma alkaline tabatha sphatase measurementOrdered By: Gregg Anton on 04-28-2025 ALP [Catalytic activity/Vol] 78 U/L 35-104 [facility] Serum or plasma calcium nidhi urement (mass/volume)Ordered By: Gregg Anton on 04-28-2025 Calcium [Mass/Vol] 9.6 mg/dL 7.6-11.0 [facility] Serum or plasma urea nitroge n measurement (mass/volume)Ordered By: Gregg Anton on 04-28-2025 Urea nitrogen [Mass/Vol] 13 mg/dL 4-19 [facility] Sodium levelOrdered By: Gregg Anton on 04-28-2025 Sodium [Moles/Vol] 141 mmol/L 133-145 [facility] Total proteinOrdered By: Alexandra Anton on 04-28-2025 Protein [Mass/Vol] 6.5 g/dL 5.9-8.4 [facility] Urine albumin measurement detection limit of 20 mg/L or less (mass/volume)Ordered By: Gregg Anton on 04-28-2025 Albumin DL <= 20 mg/L (U) [Mass/Vol] 25.2 mg/L <20 mg/L [facility] White blood cell (WBC) count Ordered By: Gregg Anton on 04-28-2025 WBC (Bld) [#/Vol] 6.7 10*3/uL 4.4-11.0 [facility] 36on 04-05-2025 36 Left VM, per Dr. Marcia durant reminded patient tamoxifen therapy will complete in October 2025 and to stop at this time. Left call back number if questions. Normal [facility] CNOVon 03-29-2025 CNOV Office Visit (OBGYWM ) -- JOI LONG ([id number]) 1955 F Date Time Provider Department 03/29/25 9:20 AM NORA BARTON OBGYWM During your visit today, we recorded the following information about you: Blood pressure Weight Height 126/82 72.1 kg 1.613 m Nora Barton MD 03/29/2025 10:10 AM Signed Joi Long is a 70 year old female who presents for problem visit for f/u urinary urgency and lichen sclerosis.. HPI: Not a lot of incontinence but some urgency. Myrbetrtiq is helping but still bothersome at night. Tries to put feet up before bed and limit fluids after dinner. Using estrogen cream and clobetasol but still some irritation w/ the lichen sclerosis. 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 Lots of pruritus, saadia. in the heat OB History Gravida4 Para3 Term3 Preterm0 AB1 Living3 SAB1 IAB0 Ectopic0 Multiple0 Live Births0 Medication Manager History LMP: 07/04/2007, Hysterectomy Age at Menarche: Age at First : Age at Menopause: Medication Manager History Comments: Sexual Activity: Yes; Male; bilateral tubal ligation Contraception: Surgical PAST MEDICAL HISTORY Diagnosis Date Abnormal Papanicolaou smear of vagina and vaginal HPV Asthma (HCC) Breast cancer (HCC) 2019 left Diabetes mellitus (HCC) Fibromyalgia GERD (gastroesophageal reflux disease) HLD (hyperlipidemia) HTN (hypertension) Lichen sclerosus Mitral valve disorders(424.0) SUMA on CPAP resolved Other chest pain Other malaise and fatigue PMH - PAST MEDICAL HISTORY OF ELEVATED LIPIDS PMH - PAST MEDICAL HISTORY OF Irregular Heartbeat POTS (postural orthostatic tachycardia syndrome) Shortness of breath PAST SURGICAL HISTORY Procedure Laterality Date APPENDECTOMY BACK SURGERY HX 2000, 2004, 2005 spinal fusion BLADDER SURGERY HX 12/2015 adjust bladder sling BREAST LUMPECTOMY HX 12/2018 COLONOSCOPY 2008 COLPOSCOPY CERVIX UPPER/ADJACENT VAGINA 2002 ENDOMETRIAL BX W/WO ENDOCERVIX BX W/O DILAT SPX 2003 KNEE SURGERY HX 07/2021 LAP VAG HYST <=250 G RMV T/O 03/08/2015 LIG/TRNSXJ FLP TUBE ABDL/VAG APPR UNI/BI Tubal ligation S LEAD/SPINAL CORD STIM 11/2017 removal SPINAL CORD STIM PERCT SCS ELCT 2002 TONSILLECTOMY PRIMARY/SECONDARY Tonsillectomy FAMILY HISTORY Problem Relation Age of Onset Heart Mother Pace Maker/Irregular Heartbeat Hypertension Mother Heart Father Hypertension Father Lipids Father High Cholesterol Hypertension Brother Social History Tobacco Use Smoking status: Never Smokeless tobacco: Never Vaping Use Vaping status: Never Used Substance Use Topics Alcohol use: No Drug use: No Current Outpatient Medications Medication Sig HUMALOG KWIKPEN INSULIN 100 unit/mL INJECT 8 UNITS SUBCUTANEOUSLY BEFORE BREAKFAST OR LUNCH, AND 4 UNITS BEFORE LAST MEAL. DEXCOM G7 SENSOR ricky CHANGE SENSOR EVERY 10 DAYS losartan (COZAAR) 50 mg tablet mirabegron (MYRBETRIQ) 25 mg Tb24 Take 1 tablet by mouth once daily. clobetasol (TEMOVATE) 0.05 % cream APPLY 1/4 OF A GRAM TO GENITALIA TWICE DAILY DIRECTED insulin glargine (LANTUS SOLOSTAR U-100 INSULIN) 100 unit/mL (3 mL) Inject subcutaneously. 12 units daily dapagliflozin propanediol (FARXIGA) 10 mg tablet Take 10 mg by mouth daily with breakfast. estradiol (ESTRACE) 0.01 % (0.1 mg/gram) vaginal cream Use 0.5 g vaginally two times a week. use small amount to vaginal opening twice weekly budesonide-formoterol (SYMBICORT) 160-4.5 mcg/actuation inhaler Inhale 2 Puffs as instructed two times a day. carvedilol (COREG) 6.25 mg tablet Take 6.25 mg by mouth. tamoxifen (NOLVADEX) 20 mg tablet Take 1 tablet by mouth once daily. doxepin capsule 25 mg Take 25 mg by mouth daily at bedtime. budesonide-formoterol (SYMBICORT) 160-4.5 mcg/actuation inhaler Inhale 2 Puffs as instructed twice daily. semaglutide (OZEMPIC) 0.25 mg or 0.5 mg(2 mg/1.5 mL) pnij Inject 0.25 mg subcutaneously one time a week. DULoxetine (CYMBALTA) 60 mg capsule Take 60 mg by mouth every morning. MEDICATION, NON-DATABASE Take 1 Each by mouth once daily. Slim MEDICATION, NON-DATABASE Take 2 capsules by mouth daily at bedtime. Biocleanse THERAPEUTIC MULTIVITAMIN TAB Take one(1) tablet daily. montelukast (SINGULAIR) 10 mg tablet Take 1 tablet by mouth once daily. (Patient not taking: Reported on 03/29/2025) ipratropium-albuterol (DUONEB) 0.5 mg-3 mg(2.5 mg base)/3 mL nebu Inhale 3 mL as instructed four times daily. No current facility-administered medications for this visit. Allergies As of Date: 03/29/2025 Allergen Noted Reaction STEROIDS [CORTICOSTEROIDS (GLUCOC*04/07/2024 Rash MORPHINE 08/28/2005 Rash METFORMIN 04/07/2024 Diarrhea RAMIPRIL 04/07/2024 Cough ZESTORETIC [LISINOPRIL-HYDROCHLOR* Rash and Cough Fully Assessed 03/29/2025 REVIEW OF SYSTEMS Abdomen: No bloating, early satiety, indigestion, or increased flatulence. No abdominal pain, naus (more content not included)... Normal [facility] Office Visiton 03-16-2025 Follow-up visit [id number] SohailJessie Harley 1955 F Date Provider Department Center 03/16/2025 [id number]-DEIXNAPZLEE MILLER [facility] ONC None No family history on file Level of Service:30492 RI OFFICE/OUTPATIENT ESTABLISHED LOW MDM 20 MIN Reason for Visit and Comments: Follow-up [927394] Normal [facility] Progress Noteon 03-16-2025 Progress Note We want to inform yo u that your patient's blood pressure was noted to be elevated in our office today. We thank you for trusting us with your patient's health. 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 Margin greater than 2.2 mm. Completed adjuvant radiation end of March 2019. Initiated adjuvant anastrozole end of June 2019. Held October 2019 due to chronic headaches of unclear etiology. Headaches did not improve off anastrozole. Developed Covid 19 infection in spring and delayed restarting anastrozole until February 2020. Due to bone/joint pain and weight gain associated with anastrozole, switched to tamoxifen October 2020. Other PMHx 1. DM 2. Asthma 3. GERD 4. MVP 5. OA, back surgery x 3 6. Hysterectomy and BSO 2016 7. Appy 8. HTN 9. Depression Social History Social History Tobacco Use Smoking status: Never Smokeless tobacco: Never Vaping Use Vaping status: Never Used Substance Use Topics Alcohol use: Never Drug use: Never Family History MGF - prostate CA PGM - leukemia Interval History: Feeling well overall and denies significant side effects on tamoxifen. Denies new breast lesions or masses. Physical Exam: Vitals reviewed Alert, NAD, ecog 0 No LAD in neck, axilla Bilateral breast without mass or lymphadenopathy. Imaging/Labs: Mammogram February 2025 benign Assessment/Plan: 70 y.o. 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 Margin greater than 2.2 mm. Completed adjuvant radiation end of March 2019. Initiated adjuvant anastrozole June 2019 but held from October 2019 through February 2020 due to headaches and Covid 19 infection. Due to bone/joint pain and weight gain associated with anastrozole, switched to tamoxifen October 2020. She will be completing 5 years of tamoxifen therapy October 2025 and advised to stop at that time. 5 years of adjuvant tamoxifen therapy is appropriate in the setting of DCIS. Median five-year breast cancer specific overall survival greater than 97%. Have encouraged physical activity, healthy diet, limiting alcohol intake, maintaining healthy body weight. Annual surveillance mammography next due February 2026. She will continue follow-up with primary care going forth for annual mammography/exam. I am available should questions or concerns arise. There are no other issues with medication compliance, stressors, depression, side effects of therapy other than as noted above. Discussion congruent with NCCN guidelines if applicable. she consents to treatment. Shared decision making was performed. Normal [facility] No mammographic evid ence of malignancy. ASSESSMENT: Category 2 Benign RECOMMENDATION: Routine screening mammogram in 1 year. Bilateral CANCER RISK ASSESSMENT: No lifetime breast cancer risk score was calculated due to the patient having had a previous breast cancer diagnosis per Tyrer-Cuzick version 8 risk model guidelines. Is the patient at elevated risk based on the HBOC criteria? No (Hereditary Breast and Ovarian Cancer) - If Yes, consider genetic counseling and testing with high risk follow up Is the patient at elevated risk based on the Gastelum Syndrome criteria? No - If Yes, consider genetic counseling and testing with high risk follow up. Report Dictated on Electronically Signed By: Maira Wolfe DO Electronically Signed Date/Time: 03/09/2025 3:11 PM EDT [facility] Patient Name: JOI LONG : 1955 Exam Date/Time: 03/09/2025 13:22 Procedure: BI MAMMOGRAM SCREENING TOMOSYNTHESIS BILATERAL Ordering Provider: MILLER BRADLEY Reason For Exam: This exam was performed at [facility] [address] [place] [address] PATIENT CANCER HISTORY: Self Breast Cancer FAMILY CANCER HISTORY: No Family History of Cancer TECHNIQUE: 2D Bilateral CC and MLO 3D Bilateral CC and MLO Images reviewed with CAD Markings on images: BB's = Nipples, skin lesions Open [place] = Palpable Line = Scar COMPARISON: 03/08/2024, 03/05/2023, 03/04/2022, 02/28/2021, 02/27/2020, 12/27/2018, 12/17/2018 TISSUE DENSITY: BIRADS B - There are scattered areas of fibroglandular density. FINDINGS: No suspicious masses, architectural distortions or suspiciously clustered microcalcifications. No skin thickening or nipple retraction. Left breast postoperative changes. No significant change from prior studies. [facility] Maira Wolfe DO - 03/09/2025 Patient Name: JOI LONG : 1955 Exam Date/Time: 03/09/2025 13:22 Procedure: BI MAMMOGRAM SCREENING TOMOSYNTHESIS BILATERAL Ordering Provider: MILLER BRADLEY Reason For Exam: This exam was performed at [facility] [address] [place] [address] PATIENT CANCER HISTORY: Self Breast Cancer FAMILY CANCER HISTORY: No Family History of Cancer TECHNIQUE: 2D Bilateral CC and MLO 3D Bilateral CC and MLO Images reviewed with CAD Markings on images: BB's = Nipples, skin lesions Open [place] = Palpable Line = Scar COMPARISON: 03/08/2024, 03/05/2023, 03/04/2022, 02/28/2021, 02/27/2020, 12/27/2018, 12/17/2018 TISSUE DENSITY: BIRADS B - There are scattered areas of fibroglandular density. FINDINGS: No suspicious masses, architectural distortions or suspiciously clustered microcalcifications. No skin thickening or nipple retraction. Left breast postoperative changes. No significant change from prior studies. IMPRESSION: No mammographic evidence of malignancy. ASSESSMENT: Category 2 Benign RECOMMENDATION: Routine screening mammogram in 1 year. Bilateral CANCER RISK ASSESSMENT: No lifetime breast cancer risk score was calculated due to the patient having had a previous breast cancer diagnosis per Tyrer-Cuzick version 8 risk model guidelines. Is the patient at elevated risk based on the HBOC criteria? No (Hereditary Breast and Ovarian Cancer) - If Yes, consider genetic counseling and testing with high risk follow up Is the patient at elevated risk based on the Gastelum Syndrome criteria? No - If Yes, consider genetic counseling and testing with high risk follow up. Report Dictated on Electronically Signed By: Maira Wolfe DO Electronically Signed Date/Time: 03/09/2025 3:11 PM EDT upad Radiology Study observation (narrative) upad DBT Breast - bilateral scree ningOrdered By: Maira Wolfe on 03-09-2025 upad Work Phone: Bone density reportOrdered B y: John Yanez on 02-16-2025 Study report Skeletal system DXA [facility] Imaging Services [address], [place] [address] Dexa Bone Density Study MR#: [id number] Acct: [id number] Name: JOI LONG Rep #: [id number] : 1955 F 70 From: Desiree Yanez MD PCP: Dr. Gregg Anton MD Status: REG CLI Study:Dexa Bone Density Study Date of Exam: 02/16/25 Exam# [id number] Ordering Dr: Geraldo Barrera PAINTER SPRING PAINTER SPRING-C PROCEDURE: DEXA BONE DENSITY STUDY 02/16/2025 REASON FOR EXAM: F, age 70 y/o . TECHNIQUE: DXA scan of sites with data reported below. Scanner utilized: Canines W. REFERENCE LINKS: [facility] Adult Positions COMPARISON: None FINDINGS: BMD and T-SCORES Lumbar spine: 1.081 g/cm2, T-score 0.3 Levels: L1, L3-L4 Left femoral neck: 0.869 g/cm2, T-score 0.2 Femoral neck comparison data not recommended for monitoring change. Left total hip: 1.041 g/cm2, T-score 0.8 Right femoral neck: 0.940 g/cm2, T-score 0.8 Femoral neck comparison data not recommended for monitoring change. Right total hip: 1.102 g/cm2, T-score 1.3 The World Health Organization has defined the following categories based on bonedensity: Normal bone density: T-score equal to or greater than -1.0 Osteopenia: T-score between -1.0 and -2.5 Osteoporosis: T-score equal to or less than -2.5 BD/Dexa Bone Density Study IMPRESSION: Normal bone mineral density. Reading Location: [id number] CC: Geraldo Barrera; Dr. Gregg Anton MD ~ Professor Of Environmental Studies: Signed [facility] Dexa Bone Density Studyon Dexa Bone Density Study [facility] Imaging Services [address] [place] [address] Dexa Bone Density Study MR#: [id number] Acct: [id number] Name: JOI LONG Rep #: [id number] : 1955 F 70 From: John Yanez MD PCP: Dr. Gregg Anton MD Status: [facility] CLI Study: Dexa Bone Density Study Date of Exam: 02/16/25 Exam# [id number] Ordering Dr: Geraldo Barrera NP, NP -C PROCEDURE: DEXA BONE DENSITY STUDY 02/16/2025 REASON FOR EXAM: F, age 70 y/o . TECHNIQUE: DXA scan of sites with data reported below. Scanner utilized: Canines W. REFERENCE LINKS: [facility] Adult Positions COMPARISON: None FINDINGS: BMD and T-SCORES Lumbar spine: 1.081 g/cm2, T-score 0.3 Levels: L1, L3-L4 Left femoral neck: 0.869 g/cm2, T-score 0.2 Femoral neck comparison data not recommended for monitoring change. Left total hip: 1.041 g/cm2, T-score 0.8 Right femoral neck: 0.940 g/cm2, T-score 0.8 Femoral neck comparison data not recommended for monitoring change. Right total hip: 1.102 g/cm2, T-score 1.3 The World Health Organization has defined the following categories based on bone density: Normal bone density: T-score equal to or greater than -1.0 Osteopenia: T-score between -1.0 and -2.5 Osteoporosis: T-score equal to or less than -2.5 BD/Dexa Bone Density Study IMPRESSION: Normal bone mineral density. Reading Location: [id number] CC: Geraldo REYES [facility]; Dr. Gregg Anton MD Professor Of Environmental Studies: Signed Normal [facility] Hemoglobin A1con 10-23-2024 HbA1c (Bld) [Mass fraction] 7.5 % High 3.8-5.6 [facility] Comment on above: Order Comment: Order Date: 07/25/24 Order Info: 4548-4 - A1C Result Comment: Norm al < 5.7 % Prediabetic 5.7 - 6.4 % Diabetic >or= 6.5 % Please note range changes. Performed By: #### L 500.4050, L501.9985, L501.9520 #### [facility] Laboratory [address] [place], [place], [id number] Comprehensive Metabolic Prof ilon 10-21-2024 Albumin [Mass/Vol] 3.8 g/dL Normal 3.2-5.0 [facility] Comment on above: Order Comment: Order Date: 07/25/24 Order Info: 0786-1 - CMP Order Info: 3016-3 - TSH Performed By: #### L 500.4050, L501.9985, L501.9520 #### [facility] [address] [place], [address] Albumin/Globulin [Mass ratio] 1.0 {ratio} Normal 0.9-2.4 [facility] Comment on above: Order Comment: Order Date: 07/25/24 Order Info: 0786-1 - CMP Order Info: 3015-3 - TSH Performed By: #### L 500.4050, L501.9985, L501.9520 #### [facility] [address] [place], [address] ALK P 83 U/L Normal 45-117 [facility] Comment on above: Order Comment: Order Date: 07/25/24 Order Info: 0786-1 - CMP Order Info: 3015-3 - TSH Performed By: #### L 500.4050, L501.9985, L501.9520 #### [facility] [address] [place], [address] ALT [Catalytic activity/Vol] 29 U/L Normal 13-56 [facility] Comment on above: Order Comment: Order Date: 07/25/24 Order Info: 0786-1 - CMP Order Info: 3015-3 - TSH Performed By: #### L 500.4050, L501.9985, L501.9520 #### [facility] [address] [place], [address] AST [Catalytic activity/Vol] 24 U/L Normal 15-37 [facility] Comment on above: Order Comment: Order Date: 07/25/24 Order Info: 0786-1 - CMP Order Info: 301-3 - TSH Performed By: #### L 500.4050, L501.9985, L501.9520 #### [facility] [address] [place], [address] Bilirubin [Mass/Vol] 0.60 mg/dL Normal 0.20-1.00 [facility] Comment on above: Order Comment: Order Date: 07/25/24 Order Info: 0786-1 - CMP Order Info: 3 - TSH Result Comment: For patients on eltrombopag therapy, use of Dimension [place] TBIL is not recommended. Performed By: #### L 500.4050, L501.9985, L501.9520 #### [facility] [address] [place], [address] BUN/CRE 14.7 RATIO Normal 10-20 [facility] Comment on above: Order Comment: Order Date: 07/25/24 Order Info: 785-1 - [facility] Order Info: 3 - TSH Performed By: #### L 500.4050, L501.9985, L501.9520 #### [facility] [address] [place], [address] CA,Total 9.4 mg/dL Normal 8.5-10.1 [facility] Comment on above: Order Comment: Order Date: 07/25/24 Order Info: 07 - [facility] Order Info: 3015-11 - TSH Performed By: #### L 500.4050, L501.9985, L501.9520 #### [facility] [address] [place], [address] Chloride [Moles/Vol] 106 mmol/L Normal 98-107 [facility] Comment on above: Order Comment: Order Date: 07/25/24 Order Info: 0786-1 - [facility] Order Info: 3015-11 - TSH Performed By: #### L 500.4050, L501.9985, L501.9520 #### [facility] [address] [place], [address] CO2 [Moles/Vol] 23.0 mmol/L Normal 21.0-32.0 [facility] Comment on above: Order Comment: Order Date: 07/25/24 Order Info: 0786-1 - CMP Order Info: 3 - TSH Performed By: #### L 500.4050, L501.9985, L501.9520 #### [facility] [address] [place], [address] Creatinine [Mass/Vol] 1.02 mg/dL Normal 0.55-1.02 [facility] Comment on above: Order Comment: Order Date: 07/25/24 Order Info: 0786-1 - CMP Order Info: 3016- - TSH Result Comment: The validity of the calculated GFR GFRAA in patients over 70 years has not been determined. Clinical correlation is essential. Performed By: #### L 500.4050, L501.9985, L501.9520 #### [facility] [address] [place], [address] EST GFR - AA 69 mL/min Normal >60 [facility] Comment on above: Order Comment: Order Date: 07/25/24 Order Info: 0786-1 - CMP Order Info: 30102-14 - TSH Result Comment: Afri can [place] GFR Calc Performed By: #### L 500.4050, L501.9985, L501.9520 #### [facility] [address] [place], [address] GAP 10 Normal 5-15 [facility] Comment on above: Order Comment: Order Date: 07/25/24 Order Info: 0786-1 - CMP Order Info: 3016- - TSH Performed By: #### L 500.4050, L501.9985, L501.9520 #### [facility] [address] [place], [address] GFR/1.73 sq M.predicted among non-blacks MDRD (S/P/Bld) [Vol rate/Area] 57 mL/min/{1.73_m2} Low >60 [facility] Comment on above: Order Comment: Order Date: 07/25/24 Order Info: 0786-1 - CMP Order Info: 3016-3 - TSH Result Comment: Non- GFR Calc Performed By: #### L 500.4050, L501.9985, L501.9520 #### [facility] [address] [place], [address] Globulin (S) [Mass/Vol] 3.7 g/dL Normal 2.2-4.2 [facility] Comment on above: Order Comment: Order Date: 07/25/24 Order Info: 0786 - CMP Order Info: 3015-11 - TSH Performed By: #### L 500.4050, L501.9985, L501.9520 #### [facility] [address] [place], [address] Glucose [Mass/Vol] 148 mg/dL High 74-106 [facility] Comment on above: Order Comment: Order Date: 07/25/24 Order Info: 785-09 - CMP Order Info: 3015-11 - TSH Result Comment: Fast ing Glucose result greater than or equal to 126 mg/dL suggests DIABETES MELLITUS per A.D.A. criteria. Performed By: #### L 500.4050, L501.9985, L501.9520 #### [facility] [address] [place], [address] Potassium [Moles/Vol] 3.9 mmol/L Normal 3.5-5.1 [facility] Comment on above: Order Comment: Order Date: 07/25/24 Order Info: 0786 - CMP Order Info: 3015-11 - TSH Performed By: #### L 500.4050, L501.9985, L501.9520 #### [facility] [address] [place], [address] Sodium [Moles/Vol] 139 mmol/L Normal 136-145 [facility] Comment on above: Order Comment: Order Date: 07/25/24 Order Info: 0786 - CMP Order Info: 3015-11 - TSH Performed By: #### L 500.4050, L501.9985, L501.9520 #### [facility] [address] [place], [address] T PROT 7.5 g/dL Normal 6.4-8.2 [facility] Comment on above: Order Comment: Order Date: 07/25/24 Order Info: 0786-1 - CMP Order Info: 3016-3 - TSH Performed By: #### L 500.4050, L501.9985, L501.9520 #### [facility] [address] [place], [place], [address] Urea nitrogen [Mass/Vol] 15 mg/dL Normal 7-18 [facility] Comment on above: Order Comment: Order Date: 07/25/24 Order Info: 0786-1 - CMP Order Info: 3016-3 - TSH Performed By: #### L 500.4050, L501.9985, L501.9520 #### [facility] [address] [place], [address] Thyroid Stim Hormone (TSH)on 10-21-2024 TSH 2.060 uIU/mL Normal 0.358-3.74 0 [facility] Comment on above: Order Comment: Order Date: 07/25/24 Order Info: 0786-1 - [facility] Order Info: 3016-3 - TSH Performed By: #### L 500.4050, L501.9985, L501.9520 #### [facility] [address] [place], [address] Stress Reporton 07-11-2024 Stress Report [facility] Cardiovascular Services [address] [place] [address] MR#: [id number] Acct: [id number] Name: JOI LONG Rep #: [id number] : 1955 69 From: Yogi Hicks MD Primary Care: Dr. Gregg Anton MD Status: R EG CLI Referring Dr: Shane Beltrán MD Sex: F C Stress Test Report Exercise stress test. 69-year-old lady with a history of dyspnea on exertion Stress protocol: Resting EKG demonstrates normal sinus rhythm with a rate of 91 bpm resting blood pressure is 128/72 mmHg. resting pulse oximetry is noted to be 97%. The patient exercised according to the regular Romero protocol for a total duration of 4 minutes and 22 seconds attaining a maximum heart rate of 164 bpm which was 107% of maximum predicted heart rate; the maximum workload was 7 metabolic equivalents. At rest there were no ST or T wave changes noted to suggest ischemia and at peak exercise upsloping ST changes only were noted which did not meet the criteria for ischemia. The patient experienced mild shortness of breath and moderate shortness of breath at low end peak exertion respectively with the oximetry saturation going down from 97% to a lesli of 94%. During recovery oxygen saturation improved back to 98%. No clinical angina was noted the test was terminated due to the target heart rate being achieved/fatigue. The peak blood pressure was 174/74 mmHg. Rate-pressure product was 28,100. Conclusion: Exercise stress test with no EKG changes for ischemia at a moderate workload Moderate functional aerobic impairment Oximetry saturation ranging between 94% at peak exercise and 98% postexercise rest 07/11/24 1343 Date Yogi Hicks MD CC: Dr. Gregg Anton MD; Dr. Shane Beltrán MD Date Dictated: 07/11/241335 Date Transcribed: 07/11/241335 Professor Of Environmental Studies: [place] Signed [facility] [id number] 07-02-2024 BNP [facility] Comment on above: Result Comment: TEST RESULTS LIMITS B-Type Natriuretic Peptide 29.3 pg/mL 0.0-100.0 Siemens ADVIA Centaur XP methodology TESTING PERFORMED AT [facility]. ORIGINAL REPORT ON FILE IN LAB CONTAINS ADDITIONAL TEST SITE INFORMATION. Performed By: #### L 5000.0010 ####[facility] [address] [place], [address] 12 Lead EKG performed by [facility] on 06-27-2024 12 Lead EKG performed by [facility] [address] [place] [address] 12 Lead EKG performed by [facility] 06/27/24911 MR#: [id number] Acct: [id number] Name: JOI LONG Rep #: [id number] : 1955 69 From: Shane Beltrán MD Attending Dr: Dr. Shane Beltrán MD Status: DE P AMB Ordering Dr: Shane Beltrán MD Date: 06/27/24 Location: 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 ABNORMAL Electronically signed on 06/27/2024 at 15:[address] Shane Beltrán [employer] Version 8610 06/27/247 Date Shane Beltrán MD CC: Dr. Gregg Anton MD Date Dictated: 06/27/24911 Date Transcribed: 06/27/24911 Professor Of Environmental Studies: Signed Normal [facility] Cardiology Visit Reporton Cardiology Visit Report [facility] [address] [place] [address] OFFICE VISIT Date of Service: 06/27/24 MR#: [id number] Acct: [id number] Name: JOI LONG Rep #: [id number] : 1955 Provider: Dr. Shane porras MD Age/Sex: 69/F Location: [facility] Status: Signed HPI HPI History of Present Illness Details: Patient is 69-year-old white female comes in today for new patient visit. Her primary complaint is longstanding dyspnea on exertion. She had she was diagnosed with COVID back in November 2019 and since that point in time has had significant shortness of breath and dyspnea on exertion. She has been evaluated by Dr. Michoacano Braga, pulmonary. The patient had an echocardiogram done April 28, 2024. That echo showed normal LV size there was mild upper septal left ventricular hypertrophy systolic ejection fraction was 66???5% she had normal left-ventricular diastolic function the right ventricle was normal in size and function there is no significant valvular abnormalities the inferior vena cava collapsed with inspiration consistent with a right atrial pressure of 3. There was no direct measurement of pulmonary artery pressures that I could find on the report. The patient also had PFTs which were reported as normal. Remotely the patient had a heart catheterization in 2005 where she had angiographically normal arteries. She had mild mitral valve prolapse with no mitral regurgitation at that time. The patient has carried a diagnosis of MVP since that time. The patient at times is felt like she felt her heart racing she is also been short of breath and had brain fog consistent with her diagnosis of long COVID. 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 She denies any recent infections. She does have a history of multiple pneumonias in the remote past especially when she was a child. She related a story that her mother had told her that it 1 time they thought she had leukemia because she had so many recurrent pneumonias. The patient continues to complain of fatigue and this dyspnea on exertion she is not anemic recent blood work showed that her hemoglobin was 14 her TSH was 1.37. The patient reportedly had a BNP done but I cannot find the results of the measurement. The current symptoms as she is describing it with this dyspnea on exertion, almost a fear of activity, and atypical chest pains that occur when she is emotionally stressed are suggestive of a mitral valve prolapse syndrome also seen with a POTS symptom complex. The patient denies any alaina syncope or near syncope. She does report she occasionally gets short of breath when she is just sitting doing nothing it will last 5 minutes and resolved spontaneously. The patient is on antidepressant medical therapy. She also complains of some mild orthostatic changes mainly occurring when she first gets up after being asleep for a while. Patient also history of tachycardia. She reports that she wore a Holter monitor that showed that her palpitations were associated with sinus tachycardia. I cannot find documentation of this Holter monitor in the records that I have to review. But she specifically says it was no evidence of paroxysmal atrial fibrillation or any significant tacky or bradycardia arrhythmia. EKG done in the office today showed normal sinus rhythm at 80 bpm low voltage in the precordial leads and could not rule out an old inferior apical infarct due to poor R wave progression and a left axis deviation. Her Holter monitor however April 28, 2024, showed normal LV function with an ejection fraction of 65%. 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: No Accompanied by: Is patient in pain?: No Allergies Corticosteroids (Glucocorticoids) Allergy (Verified 06/27/24 13:35) Rash hydrochlorothiazide (From Zestoretic) Allergy (Verified 06/27/24 13:35) Rash lisinopril (From Zestoretic) Allergy (Verified 06/27/24 13:35) Rash metformin Allergy (Verified 06/27/24 13:35) Rash morphine Allergy (Verified 06/27/24 13:35) Rash Medications ???Medication ???Instructions ???Recorded ???Confirmed ???Type doxepin 25 mg capsule 25 mg PO QHS DEPRESSION/ANXIETY 10/23/20 06/27/24 History duloxetine 60 mg capsule,delayed 60 mg PO DAILY DEPRESSION/ANXIETY 10/23/20 06/27/24 History release (Cymbalta) glimepiride 4 mg tablet 2 mg PO DAILY diabetes 10/25/20 06/27/24 History insulin glargine 100 unit/mL (3 12 unit subcut QPM DIABETES 10/25/20 06/27/24 History mL) s (more content not included)... Normal [facility] 05-25-2024 [facility] Telephone ([facility]) -- JOI LONG ([id number]) 1955 F Date Time Provider Department 05/25/24 MICHOACANO BRAGA [facility] During your visit today, we recorded the following information about you: Richard Zamudio RN 05/25/2024 12:29 PM Signed Pt called wanting Dr. Braga to know that she was wearing an extended holter monitor. She changed the adhesive and could not get the sensor to go back. Essentially, she only wore it for 4 days. She wants to know if this is sufficient or if she needs to have it again. Richard Zamudio RN 05/30/2024 10:17 AM Signed Spoke to pt and advised her to turn Holter in. Pt turned Holter monitor in on Thursday. Michoacano Braga MD [employer] now (10:14 AM) She can submit the unit and we'll see if she monitor caught any abnormal heart rhythms in those 4 days then go from there. Allergies As of Date: 05/25/2024 Noted Allergy Reaction STEROIDS (CORTICOSTEROIDS (GLUCOC*04/07/2024 2 - Rash Comments: injections MORPHINE 08/28/2005 2 - Rash METFORMIN 04/07/2024 6 - Diarrhea RAMIPRIL 04/07/2024 3 - Cough ZESTORETIC (LISINOPRIL-HYDROCHLOR* 2 - Rash 3 - Cough Date Reviewed: 05/12/2024 Reviewed by: Aracely Haywood LPN - Fully Assessed Reason for Visit: Results [95] Prescriptions as of 05/30/2024 - mirabegron (MYRBETRIQ) 25 mg Tb24 Take 1 tablet by mouth once daily. - clobetasol (TEMOVATE) 0.05 % cream APPLY 1/4 OF A GRAM TO GENITALIA TWICE DAILY DIRECTED - insulin glargine (LANTUS SOLOSTAR U-100 INSULIN) 100 unit/mL (3 mL) Inject subcutaneously. 12 units daily - dapagliflozin propanediol (FARXIGA) 10 mg tablet Take 10 mg by mouth daily with breakfast. - estradiol (ESTRACE) 0.01 % (0.1 mg/gram) vaginal cream Use 0.5 g vaginally two times a week. use small amount to vaginal opening twice weekly - budesonide-formoterol (SYMBICORT) 160-4.5 mcg/actuation inhaler Inhale 2 Puffs as instructed two times a day. - carvedilol (COREG) 6.25 mg tablet Take 6.25 mg by mouth. - montelukast (SINGULAIR) 10 mg tablet Take 1 tablet by mouth once daily. - tamoxifen (NOLVADEX) 20 mg tablet Take 1 tablet by mouth once daily. - ipratropium-albuterol (DUONEB) 0.5 mg-3 mg(2.5 mg base)/3 mL nebu Inhale 3 mL as instructed four times daily. - doxepin capsule 25 mg Take 25 mg by mouth daily at bedtime. - glimepiride (AMARYL) 4 mg tablet Take 4 mg by mouth daily with breakfast. 4 mg in am 2 mg in pm - budesonide-formoterol (SYMBICORT) 160-4.5 mcg/actuation inhaler Inhale 2 Puffs as instructed twice daily. - semaglutide (OZEMPIC) 0.25 mg or 0.5 mg(2 mg/1.5 mL) pnij Inject 0.25 mg subcutaneously one time a week. - DULoxetine (CYMBALTA) 60 mg capsule Take 60 mg by mouth every morning. - MEDICATION, NON-DATABASE Take 1 Each by mouth once daily. Slim - MEDICATION, NON-DATABASE Take 2 capsules by mouth daily at bedtime. Biocleanse - THERAPEUTIC MULTIVITAMIN TAB Take one(1) tablet daily. Problem List As Of Date 05/25/2024 Noted Resolved Shortness of breath [R06.02] 11/30/2017 Other malaise and fatigue [R53.81, R53.83] 11/30/2017 Other chest pain [R07.89] 11/30/2017 Unspecified asthma(493.90) [J45.909] 09/15/2006 11/30/2017 Cystocele [PLR2220] 08/23/2012 11/30/2017 HTN (hypertension) [I10] 08/25/2013 Moderate persistent asthma without complication*10/13/2017 SUMA (obstructive sleep apnea) [G47.33] 10/13/2017 Type 2 diabetes mellitus with complication (HCC* HLD (hyperlipidemia) [E78.5] Mitral valve prolapse [I34.1] Acute back pain [M54.9] 12/03/2017 History of COVID-19 [Z86.16] 02/28/2021 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 COVID-19 julio escalante [U09.9] 12/05/2019 Lichen sclerosus et atrophicus [L90.0] 04/10/2023 Postural orthostatic tachycardia syndrome [G90.*04/07/2024 Tachycardia [R00.0] 05/20/2024 Encounter Status:Closed by RICHARD ZAMUDIO on 05/25/24 [facility] [place] [facility] -- JOI LNOG ([id number]) 1955 F Date Time Provider Department 05/17/24 MICHOACANO BRAGA [facility] During your visit today, we recorded the following information about you: Sushant Rizzo 05/17/2024 10:30 AM Signed Patient has been identified by name and date of : Yes, Provider Dr. Braga Date 05/17/2024 Time 1030 Type of form: Surgical Clearance and Form received via: Fax When form is completed, fax form to fax number provided. Form has been forwarded to: Provider's mailbox. Provider name: Chandni Toscano 05/25/2024 11:33 AM Signed Fax cover sheet that was in Dr Braga's in basket is missing the clearance form, date of surgery and type of surgery. Fax sent back to [facility] requesting this info Chandni Ferrell 06/07/2024 11:17 AM Signed Faxed a second request. Chandni Ferrell 06/07/2024 12:44 PM Signed Received a fax back from Zuly at [facility] to cancel this request. All documents placed for scanning. Chandni Holman Allergies As of Date: 05/17/2024 Noted Allergy Reaction STEROIDS (CORTICOSTEROIDS (GLUCOC*04/07/2024 2 - Rash Comments: injections MORPHINE 08/28/2005 2 - Rash METFORMIN 04/07/2024 6 - Diarrhea RAMIPRIL 04/07/2024 3 - Cough ZESTORETIC (LISINOPRIL-HYDROCHLOR* 2 - Rash 3 - Cough Date Reviewed: 05/12/2024 Reviewed by: Aracely Haywood LPN - Fully Assessed Reason for Visit: Medical Clearance [1982] Prescriptions as of 06/07/2024 - mirabegron (MYRBETRIQ) 25 mg Tb24 Take 1 tablet by mouth once daily. - clobetasol (TEMOVATE) 0.05 % cream APPLY 1/4 OF A GRAM TO GENITALIA TWICE DAILY DIRECTED - insulin glargine (LANTUS SOLOSTAR U-100 INSULIN) 100 unit/mL (3 mL) Inject subcutaneously. 12 units daily - dapagliflozin propanediol (FARXIGA) 10 mg tablet Take 10 mg by mouth daily with breakfast. - estradiol (ESTRACE) 0.01 % (0.1 mg/gram) vaginal cream Use 0.5 g vaginally two times a week. use small amount to vaginal opening twice weekly - budesonide-formoterol (SYMBICORT) 160-4.5 mcg/actuation inhaler Inhale 2 Puffs as instructed two times a day. - carvedilol (COREG) 6.25 mg tablet Take 6.25 mg by mouth. - montelukast (SINGULAIR) 10 mg tablet Take 1 tablet by mouth once daily. - tamoxifen (NOLVADEX) 20 mg tablet Take 1 tablet by mouth once daily. - ipratropium-albuterol (DUONEB) 0.5 mg-3 mg(2.5 mg base)/3 mL nebu Inhale 3 mL as instructed four times daily. - doxepin capsule 25 mg Take 25 mg by mouth daily at bedtime. - glimepiride (AMARYL) 4 mg tablet Take 4 mg by mouth daily with breakfast. 4 mg in am 2 mg in pm - budesonide-formoterol (SYMBICORT) 160-4.5 mcg/actuation inhaler Inhale 2 Puffs as instructed twice daily. - semaglutide (OZEMPIC) 0.25 mg or 0.5 mg(2 mg/1.5 mL) pnij Inject 0.25 mg subcutaneously one time a week. - DULoxetine (CYMBALTA) 60 mg capsule Take 60 mg by mouth every morning. - MEDICATION, NON-DATABASE Take 1 Each by mouth once daily. Slim - MEDICATION, NON-DATABASE Take 2 capsules by mouth daily at bedtime. Biocleanse - THERAPEUTIC MULTIVITAMIN TAB Take one(1) tablet daily. Problem List As Of Date 05/17/2024 Noted Resolved Shortness of breath [R06.02] 11/30/2017 Other malaise and fatigue [R53.81, R53.83] 11/30/2017 Other chest pain [R07.89] 11/30/2017 Unspecified asthma(493.90) [J45.909] 09/15/2006 11/30/2017 Cystocele [CTK1820] 08/23/2012 11/30/2017 HTN (hypertension) [I10] 08/25/2013 Moderate persistent asthma without complication*10/13/2017 SUMA (obstructive sleep apnea) [G47.33] 10/13/2017 Type 2 diabetes mellitus with complication (HCC* HLD (hyperlipidemia) [E78.5] Mitral valve prolapse [I34.1] Acute back pain [M54.9] 12/03/2017 History of COVID-19 [Z86.16] 02/28/2021 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 COVID-19 julio escalante [U09.9] 12/05/2019 Lichen sclerosus et atrophicus [L90.0] 04/10/2023 Postural orthostatic tachycardia syndrome [G90.*04/07/2024 Encounter Status:Closed by SUSHANT RIZZO on 05/19/24 [facility] CNOVon 05-12-2024 CNOV Office Visit ([facility] ) -- JOI LONG ([id number]) 1955 F Date Time Provider Department 05/12/24 2:40 PM MICHOACANO BRAGA [facility] During your visit today, we recorded the following information about you: Temperature Pulse Respiration Blood pressure 98.2 degrees 88/minute 16/minute 139/75 Weight Height 75.8 kg 1.626 m Michoacano Braga MD 05/12/2024 5:25 PM Signed . Pulmonary Clinic Follow-up Note Patient Name: Joi Long PRIMARY CARE PHYSICIAN: Gregg Anton MD Date of visit: 05/12/2024 COMMUNICATION WILL BE SENT VIA SHARED MEDICAL RECORDS OR US MAIL. HISTORY OF PRESENT ILLNESS: Joi Long is a 69 year old female, Here today for F/U asthma. She also has a history of SUMA but intolerant to CPAP. She is on Symbicort 160mcg 2 puffs BID, Spiriva Respimat and montelukast. She came down with COVID 01 December 2019. She needed to be admitted for 4 days at [facility]. She had prolonged long CIVID symptoms of chronic fatigue and chronic SOB. JUDI 03/24/2024 ACT score was 18. She had COVID in November 2019. Since that time she has been more short of breath than usual. That last office visit her MALMO score was 50 (Score > 42 could suggest possible POTs) and her Nijmegen score was 23 (score of >23 suggest possible diagnosis of hyperventilation syndrome) Last office visit I ordered an ECHO, CXR, PFT, NT proBNP and CBC for further evaluation of ongoing post-COVID shortness of breath. CC is ongoing SOB. She was SOB walking into the building from the parking lot and she had a parking spot spot close to the building. Sometimes she has a cough too. She also has chronic fatigue and brain fog since COVID. Since having COVID she sometimes feels like her heart is racing. . ASTHMA CONTROL TEST Date: 05/11/2024 In the last 4 weeks, how much of the time did your asthma keep you from getting as much done at work or home that you wanted to do? None of the time (5) In the last 4 weeks, how often have you had shortness of breath? More than once per day (1) In the last 4 weeks, how often did your asthma symptoms (wheezing, coughing, shortness of breath, chest tightness or pain) wake you up at night or earlier than usual? Not at all (5) In the last 4 weeks, how often have you used your rescue inhaler or nebulizer medication (such as Albuterol, Proventil, Ventolin, Maxair, Xoponex, or Primatene Mist)? Not at all (5) In the last 4 weeks, how would you rate your asthma control? Well controlled (4) Total: 20 10/21/2022: 20 01/13/2022: 25 07/04/21: 18 06/04/2021 total: 13 05/02/2021: 21 12/07/2020: 17 PAST MEDICAL HISTORY No date: Abnormal Papanicolaou smear of vagina and vaginal HPV No date: Asthma No date: Breast cancer (HCC) Comment: left No date: Fibromyalgia No date: GERD (gastroesophageal reflux disease) No date: HLD (hyperlipidemia) No date: HTN (hypertension) No date: Lichen sclerosus No date: Mitral valve disorders(424.0) No date: SUMA on CPAP Comment: resolved No date: Other chest pain No date: Other malaise and fatigue No date: PMH - PAST MEDICAL HISTORY OF Comment: ELEVATED LIPIDS No date: PMH - PAST MEDICAL HISTORY OF Comment: Irregular Heartbeat No date: POTS (postural orthostatic tachycardia syndrome) No date: Shortness of breath PAST SURGICAL HISTORY No date: APPENDECTOMY 2000, 2004, 2005: BACK SURGERY HX Comment: spinal fusion 12/2015: BLADDER SURGERY HX Comment: adjust bladder sling 12/2018: BREAST LUMPECTOMY HX 2008: COLONOSCOPY 2003: COLPOSCOPY CERVIX UPPER/ADJACENT VAGINA 2002: ENDOMETRIAL BX W/WO ENDOCERVIX BX W/O DILAT SPX 07/2021: KNEE SURGERY HX 03/08/2015: LAP VAG HYST <=250 G RMV T/O No date: LIG/TRNSXJ FLP TUBE ABDL/VAG APPR UNI/BI Comment: Tubal ligation 11/2017: S LEAD/SPINAL CORD STIM Comment: removal 2001: SPINAL CORD STIM PERCT SCS ELCT No date: TONSILLECTOMY PRIMARY/SECONDARY Comment: Tonsillectomy MEDICATIONS: mirabegron (MYRBETRIQ) 25 mg Tb24 Take 1 tablet by mouth once daily. clobetasol (TEMOVATE) 0.05 % cream APPLY 1/4 OF A GRAM TO GENITALIA TWICE DAILY DIRECTED insulin glargine (LANTUS SOLOSTAR U-100 INSULIN) 100 unit/mL (3 mL) Inject subcutaneously. 12 units daily dapagliflozin propanediol (FARXIGA) 10 mg tablet Take 10 mg by mouth daily with breakfast. estradiol (ESTRACE) 0.01 % (0.1 mg/gram) vaginal cream Use 0.5 g vaginally two times a week. use small amount to vaginal opening twice weekly budesonide-formoterol (SYMBICORT) 160-4.5 mcg/actuation inhaler Inhale 2 Puffs as instructed two times a day. carvedilol (COREG) 6.25 mg tablet Take 6.25 mg by mouth. montelukast (SINGULAIR) 10 mg tablet Take 1 tablet by mouth once daily. tamoxifen (NOLVADEX) 20 mg tablet Take 1 tablet by mouth once daily. ipratropium-albuterol (DUONEB) 0.5 mg-3 mg(2.5 mg base)/3 mL nebu Inhale (more content not included)... Normal [facility] ECHOon 04-28-2024 CONCLUSIONS: - Exam indication: Shortness of Breath - The left ventricle is normal in size. There is mild upper septal left ventricular hypertrophy. Left ventricular systolic function is normal. EF = 66 5% (2D biplane) Normal left ventricular diastolic function. - The right ventricle is normal in size. Right ventricular systolic function is normal. - There are no significant valvular abnormalities. - The patient has not had a prior CC echocardiographic exam for comparison. * * * Final * * * [facility] Ech[facility] Report: Transthoracic Echo [facility] Date of service: 04/28/2024 2:35:04 PM HOSPITAL Ordering physician: MICHOACANO BRAGA Indication: Shortness of Breath Technologist: Mckayla Gabriel Interpreting physician: Rhina Richards MD PATIENT: Name: MRS. JOI LONG : 1955 Age: 69 years Gender: F History of hypertension, diabetes mellitus, dyslipidemia and SUMA, breast ca. Primary rhythm: sinus. Height: 162.60 cm BSA: 1.85 m Weight: 75.75 kg BMI: 28.7 kg/m Heart rate 90 bpm Blood pressure 154/65 mmHg Color Doppler was utilized to interrogate the cardiac valves assessed and spectral Doppler was utilized to determine the flow velocities and pressure gradients reported in this exam. MEASUREMENTS: Value Indexed Normal Max aortic dimension 3.1 cm Ao < 3.8 Left atrial volume 18 ml (biplane A-L) 10 ml/m Jeremy <= 34 LV ID (diastole) 3.0 cm (2D) 1.61 cm/m LV ID (systole) 2.1 cm (2D) 1.12 cm/m IVS, leaflet tips 1.1 cm (2D) Posterior wall thickness 1.1 cm (2D) Left ventricular mass 100 g (2D) 54 g/m LV stroke volume 57 ml (2D biplane) LV end diastolic volume 86 ml (2D biplane) 46.3 ml/m 29<=EDVi<62 LV end systolic volume 29 ml (2D biplane) 15.7 ml/m Ejection Fraction 66 % (2D biplane) EF > 54 FINDINGS: LEFT VENTRICLE The left ventricle is normal in size. There is mild upper septal left ventricular hypertrophy. Left ventricular systolic function is normal globally. Normal left ventricular diastolic function. Mitral annular lateral E/e': 5.1. Mitral annular septal E/e': 5.9. Wall Motion: All scored segments are normal. RIGHT VENTRICLE The right ventricle is normal in size. Right ventricular systolic function is normal. RV systolic tissue Doppler velocity is 9.0 cm/s. Tricuspid annular displacement is 1.7 cm. Estimated right ventricular systolic pressure is not reported due to an insufficient tricuspid regurgitation signal. Estimated right atrial pressure is 3 mmHg based on IVC assessment. LEFT ATRIUM The left atrial cavity is normal in size. Pulmonary Veins: The pulmonary venous pattern showed normal systolic flow. RIGHT ATRIUM The right atrial cavity is normal in size. Inferior Vena Cava: The inferior vena cava appears normal measuring 0.7 cm. The vessel decreases greater than 50 percent with inspiration. MITRAL VALVE The mitral valve leaflets are structurally normal. There is trace mitral valve regurgitation. The pressure half time is 43 msec. The peak mitral E/A ratio is 0.42. The average mitral E/e' ratio is 5.5. The mitral flow deceleration time is 149 msec. TRICUSPID VALVE There is trace tricuspid valve regurgitation. There is no thickening. AORTIC VALVE The aortic valve cusps are structurally normal. There is no aortic valve regurgitation. Tricuspid aortic valve. PULMONIC VALVE There is trace pulmonic valve regurgitation. There is no thickening. AORTA The visualized aorta is normal in size. Measurements - Sinus: 3.1 cm. Mid ascending aorta 3.1 cm. PULMONARY ARTERIES The pulmonary arteries are unseen or not interrogated. INTERVENTRICULAR SEPTUM The interventricular septum is normal. PERICARDIUM There is no pericardial effusion. There is an epicardial fat pad. [facility] Echocardiography Echocardiography Rep ort: Transthoracic Echo [facility] Date of service: 04/28/2024 2:35:04 PM HOSPITAL Ordering physician: MICHOACANO BRAGA Indication: Shortness of Breath Technologist: Mckayla Gabriel Interpreting physician: Rhina Richards MD PATIENT: Name: MRS. JOI LONG : 1955 Age: 69 years Gender: F History of hypertension, diabetes mellitus, dyslipidemia and SUMA, breast ca. Primary rhythm: sinus. Height: 162.60 cm BSA: 1.85 m Weight: 75.75 kg BMI: 28.7 kg/m Heart rate 90 bpm Blood pressure 154/65 mmHg Color Doppler was utilized to interrogate the cardiac valves assessed and spectral Doppler was utilized to determine the flow velocities and pressure gradients reported in this exam. MEASUREMENTS: Value Indexed Normal Max aortic dimension 3.1 cm Ao < 3.8 Left atrial volume 18 ml (biplane A-L) 10 ml/m Jeremy <= 34 LV ID (diastole) 3.0 cm (2D) 1.61 cm/m LV ID (systole) 2.1 cm (2D) 1.12 cm/m IVS, leaflet tips 1.1 cm (2D) Posterior wall thickness 1.1 cm (2D) Left ventricular mass 100 g (2D) 54 g/m LV stroke volume 57 ml (2D biplane) LV end diastolic volume 86 ml (2D biplane) 46.3 ml/m 29<=EDVi<62 LV end systolic volume 29 ml (2D biplane) 15.7 ml/m Ejection Fraction 66 % (2D biplane) EF > 54 FINDINGS: LEFT VENTRICLE The left ventricle is normal in size. There is mild upper septal left ventricular hypertrophy. Left ventricular systolic function is normal globally. Normal left ventricular diastolic function. Mitral annular lateral E/e': 5.1. Mitral annular septal E/e': 5.9. Wall Motion: All scored segments are normal. RIGHT VENTRICLE The right ventricle is normal in size. Right ventricular systolic function is normal. RV systolic tissue Doppler velocity is 9.0 cm/s. Tricuspid annular displacement is 1.7 cm. Estimated right ventricular systolic pressure is not reported due to an insufficient tricuspid regurgitation signal. Estimated right atrial pressure is 3 mmHg based on IVC assessment. LEFT ATRIUM The left atrial cavity is normal in size. Pulmonary Veins: The pulmonary venous pattern showed normal systolic flow. RIGHT ATRIUM The right atrial cavity is normal in size. Inferior Vena Cava: The inferior vena cava appears normal measuring 0.7 cm. The vessel decreases greater than 50 percent with inspiration. MITRAL VALVE The mitral valve leaflets are structurally normal. There is trace mitral valve regurgitation. The pressure half time is 43 msec. The peak mitral E/A ratio is 0.42. The average mitral E/e' ratio is 5.5. The mitral flow deceleration time is 149 msec. TRICUSPID VALVE There is trace tricuspid valve regurgitation. There is no thickening. AORTIC VALVE The aortic valve cusps are structurally normal. There is no aortic valve regurgitation. Tricuspid aortic valve. PULMONIC VALVE There is trace pulmonic valve regurgitation. There is no thickening. AORTA The visualized aorta is normal in size. Measurements - Sinus: 3.1 cm. Mid ascending aorta 3.1 cm. PULMONARY ARTERIES The pulmonary arteries are unseen or not interrogated. INTERVENTRICULAR SEPTUM The interventricular septum is normal. PERICARDIUM There is no pericardial effusion. There is an epicardial fat pad. CONCLUSIONS: - Exam indication: Shortness of Breath - The left ventricle is normal in size. There is mild upper septal left ventricular hypertrophy. Left ventricular systolic function is normal. EF = 66 5% (2D biplane) Normal left ventricular diastolic function. - The right ventricle is normal in size. Right ventricular systolic function is normal. - There are no significant valvular abnormalities. - The patient has not had a prior CC echocardiographic exam for comparison. * * * Final * * * [facility] : [id number] Normal [facility] NITRIC OXIDE, EXHALEDon 04-14 Antonieta Govea CRT 04/28/2024 2:00 PM RESPIRATORY THERAPY ORAL EXHALED NITRIC OXIDE SERVICE DATE: 04/28/2024 SERVICE TIME: 2:00 PM Oral Exhaled Nitric Oxide measurement: 25.0 (ppb) Normal: Adult <25 ppb, pediatric (<12 years) <20 ppb High Normal / Increased: Adult 25-50 ppb, pediatric (<12 years) 20-35 ppb Moderately raised exhaled Nitric Oxide may indicate underlying inflammation, but note that: Cold and influenza can raise exhaled Nitric Oxide and some patients have higher baseline exhaled Nitric Oxide levels than others. High: Adult >50 ppb, pediatric (<12 years) >35 ppb Indicative of ongoing eosinophilic inflammation. Symptomatic patient likely to respond to steroids. Possible causes (if already on steroids): Poor compliance, recent allergen exposure, steroid dose inadequate, and steroid resistance. Note that not all patients with high exhaled nitric oxide levels display symptoms. 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 The patient did not use any respiratory medications prior to testing. LV - Current ATS/ERS acceptability standards for lung volumes met. DLCO - The two largest DLCO values [were] repeatable. IMPRESSION: Spirometry is normal. Lung volumes (TLC, RV and RV/TLC) are normal. The diffusing capacity is normal. Electronically Signed On 04-28-2024 16:34:53 EDT by Jasiel Katz MD ID: [id number] Name: JOI LONG Race: White Ht: 64.00 in Wt: 168.10 lbs Age: 69 Gender: Female : 1955 Dx: Shortness of breath, Post-acute sequelae of COVID-19 (PASC)_ Smoking Hx: Non-smoker Doctor: MICHOACANO BRAGA Test Date: 04/28/2024 Site: [facility] Tech: Antonieta Govea PRE-BRONCH POST-BRONCH Pre LLN Pred ULN %Pred Post %Pred %Chg SPIROMETRY FVC (L) 3.09 1.98 2.79 3.62 110 FEV1 (L) 2.50 1.53 2.18 2.79 114 FEV1/FVC 0.81 0.66 0.79 0.89 102 PEF L/s (L/sec) 6.24 4.06 5.77 7.48 108 FEF50 (L/sec) 3.72 1.53 3.14 4.75 118 FIF50 (L/sec) 5.64 FEF50/FIF50 0.66 90-100 FIVC (L) 2.79 NDW32-27 (L/sec) 2.58 0.91 1.93 3.37 133 Time (sec) 6.93 FET PEF (sec) 0.09 LORRI (L) 0.09 Vol Extrap % (%) 3 LUNG VOLUMES TGV (L) 2.35 2.02 2.88 3.74 81 RV (Pleth) (L) 2.17 1.53 2.15 2.78 100 TLC (Pleth) (L) 4.41 4.17 5.05 5.94 87 RV/TLC (Pleth) (%) 49 34 43 52 115 LUNG DIFFUSION DLCOunc (ml/min/mmHg) 19.48 14.53 20.70 26.87 94 VA (L) 4.19 3.96 5.06 6.16 82 DLunc/VA (ml/min/mmHg/L) 4.68 3.00 4.31 5.63 108 BHT (sec) 11.08 IVC (L) 2.89 Comments: SP-The patient was identified by name and date of . The patient did not use any respiratory medications prior to testing. LV - Current ATS/ERS acceptability standards for lung volumes met. DLCO - The two largest DLCO values [were] repeatable. PULMONARY FUNCTION LAB [facility] SPIROMETRY WITH DILATOR IF O BSTRUCTEDon 04-28-2024 DLCO (ml/min/mmHg) 19.48 ml/min/mm H g [facility] DLCO/VA (ml/min/mmHg/L) 4.68 ml/m in/mmH g/L [facility] HRL82-07% PRE (L/S) 2.58 L/S [facility] FEV1 PRE (L) 2.50 L [facility] FEV1/FVC PRE (%) 81 % [facility] FRC Box (L) 2.35 L [facility] FVC PRE (L) 3.09 L [facility] PEF PRE (L/S) 6.24 L/S [facility] RV Box (L) 2.17 L [facility] RV/TLC Box (%) 49 % [facility] TLC Box (L) 4.41 L [facility] VA (L) 4.19 L [facility] CBC W Auto Differential pane l (Bld)on 03-24-2024 Basophils (Bld) [#/Vol] 0.08 10*3/uL [facility] Basophils/100 WBC (Bld) 0.8 % [facility] Differential cell count method Nom (Bld) Auto [facility] Eosinophils (Bld) [#/Vol] 0.27 10*3/uL [facility] Eosinophils/100 WBC (Bld) 2.7 % [facility] Erythrocyte distribution width (RBC) [Ratio] 12.8 % 11.5 - 15.0 % [facility] Hematocrit (Bld) [Volume fraction] 48.6 % High 36.0 - 46.0 % [facility] Hemoglobin (Bld) [Mass/Vol] 16.2 g/dL High 11.5 - 15.5 g/dL [facility] Immature granulocytes (Bld) [#/Vol] 0.05 10*3/uL [facility] Immature granulocytes/100 WBC (Bld) 0.5 % [facility] Interpretation and review of laboratory results Abnormal [facility] Lymphocytes (Bld) [#/Vol] 2.95 10*3/uL [facility] Lymphocytes/100 WBC (Bld) 29.1 % [facility] MCH (RBC) [Entitic mass] 31.8 pg 26.0 - 34.0 pg [facility] MCHC (RBC) [Mass/Vol] 33.3 g/dL 30.5 - 36.0 g/dL [facility] MCV (RBC) [Entitic vol] 95.3 fL 80.0 - 100.0 fL [facility] Monocytes (Bld) [#/Vol] 0.60 10*3/uL [facility] Monocytes/100 WBC (Bld) 5.9 % [facility] Neutrophils (Bld) [#/Vol] 6.18 10*3/uL [facility] Neutrophils/100 WBC (Bld) 61.0 % [facility] Nucleated RBC (Bld) [#/Vol] [facility] Nucleated RBC/100 WBC (Bld) [Ratio] 0.0 % /100 WBC [facility] Platelet mean volume (Bld) [Entitic vol] 10.4 fL 9.0 - 12.7 fL [facility] Platelets (Bld) [#/Vol] 168 10*3/uL [facility] RBC (Bld) [#/Vol] 5.10 10*6/uL 3.90 - 5.20 m/uL [facility] WBC (Bld) [#/Vol] 10.13 10*3/uL [facility] Basophils (Bld) [#/Vol] 0.08 10*3/uL Normal <0.11 [facility] Comment on above: Order Comment: Speci men Type: BLOOD SPECIMENOrdering Facility: [facility] Address: [address] [place] [address] Performed By: #### 5 7021-8 ####[facility] LABORATORYCLIA [id number] [address] [place] Basophils/100 WBC (Bld) 0.8 % Normal [facility] Comment on above: Order Comment: Speci men Type: BLOOD SPECIMENOrdering Facility: [facility] Address: [address] [place] [address] Performed By: #### 5 7021-8 ####[facility] LABORATORYCLIA [id number] [place] Differential cell count method Nom (Bld) Auto Normal [facility] Comment on above: Order Comment: Speci men Type: BLOOD SPECIMENOrdering Facility: [facility] Address: [address] [place] [address] Performed By: #### 5 7021-8 ####[facility] LABORATORYCLIA [id number] [address] [place] Eosinophils (Bld) [#/Vol] 0.27 10*3/uL Normal <0.46 [facility] Comment on above: Order Comment: Speci men Type: BLOOD SPECIMENOrdering Facility: [facility] Address: [address] [place] [address] Performed By: #### 5 7021-8 ####[facility] LABORATORYCLIA [id number] [address] Eosinophils/100 WBC (Bld) 2.7 % Normal [facility] Comment on above: Order Comment: Speci men Type: BLOOD SPECIMENOrdering Facility: [facility] Address: [address] [place] [address] Performed By: #### 5 7021-8 ####[facility] LABORATORYCLIA [id number] [address] Erythrocyte distribution width (RBC) [Ratio] 12.8 % Normal 11.5-15.0 [facility] Comment on above: Order Comment: Speci men Type: BLOOD SPECIMENOrdering Facility: [facility] Address: [address] [place] [address] Performed By: #### 5 7021-8 ####[facility] LABORATORYCLIA [id number] [address] [place] Hematocrit (Bld) [Volume fraction] 48.6 % High 36.0-46.0 [facility] Comment on above: Order Comment: Speci men Type: BLOOD SPECIMENOrdering Facility: [facility] Address: [address] [place] [address] Performed By: #### 5 7021-8 ####[facility] LABORATORYCLIA [id number] [address] [place] Hemoglobin (Bld) [Mass/Vol] 16.2 g/dL High 11.5-15.5 [facility] Comment on above: Order Comment: Speci men Type: BLOOD SPECIMENOrdering Facility: [facility] Address: [address] [place] [address] Performed By: #### 5 7021-8 ####[facility] LABORATORYCLIA [id number] [address] [place] Immature granulocytes (Bld) [#/Vol] 0.05 10*3/uL Normal <0.10 [facility] Comment on above: Order Comment: Speci men Type: BLOOD SPECIMENOrdering Facility: [facility] Address: [address] [place] [address] Performed By: #### 5 7021-8 ####[facility] LABORATORYCLIA [id number] [address] [place] Immature granulocytes/100 WBC (Bld) 0.5 % Normal [facility] Comment on above: Order Comment: Speci men Type: BLOOD SPECIMENOrdering Facility: [facility] Address: [address] [place] [address] Performed By: #### 5 7021-8 ####[facility] LABORATORYCLIA [id number] [address] [place] Lymphocytes (Bld) [#/Vol] 2.95 10*3/uL Normal 1.00-4.00 [facility] Comment on above: Order Comment: Speci men Type: BLOOD SPECIMENOrdering Facility: [facility] Address: [address] [place] [address] Performed By: #### 5 7021-8 ####[facility] LABORATORYCLIA [id number] [address] Lymphocytes/100 WBC (Bld) 29.1 % Normal [facility] Comment on above: Order Comment: Speci men Type: BLOOD SPECIMENOrdering Facility: [facility] Address: [address] [place] [address] Performed By: #### 5 7021-8 ####[facility] LABORATORYCLIA [id number] [address] MCH (RBC) [Entitic mass] 31.8 pg Normal 26.0-34.0 [facility] Comment on above: Order Comment: Speci men Type: BLOOD SPECIMENOrdering Facility: [facility] Address: [address] [place] [address] Performed By: #### 5 7021-8 ####[facility] LABORATORYCLIA [id number] [address] MCHC (RBC) [Mass/Vol] 33.3 g/dL Normal 30.5-36.0 [facility] Comment on above: Order Comment: Speci men Type: BLOOD SPECIMENOrdering Facility: [facility] Address: [address] [place] [address] Performed By: #### 5 7021-8 ####[facility] LABORATORYCLIA [id number] [address] MCV (RBC) [Entitic vol] 95.3 fL Normal 80.0-100.0 [facility] Comment on above: Order Comment: Speci men Type: BLOOD SPECIMENOrdering Facility: [facility] Address: [address] [place] [address] Performed By: #### 5 7021-8 ####[facility] LABORATORYCLIA [id number] [address] Monocytes (Bld) [#/Vol] 0.60 10*3/uL Normal <0.87 [facility] Comment on above: Order Comment: Speci men Type: BLOOD SPECIMENOrdering Facility: [facility] Address: [address] [place] [address] Performed By: #### 5 7021-8 ####[facility] LABORATORYCLIA [id number] [address] [place] Monocytes/100 WBC (Bld) 5.9 % Normal [facility] Comment on above: Order Comment: Speci men Type: BLOOD SPECIMENOrdering Facility: [facility] Address: [address] [place] [address] Performed By: #### 5 7021-8 ####[facility] LABORATORYCLIA [id number] [address] Neutrophils (Bld) [#/Vol] 6.18 10*3/uL Normal 1.45-7.50 [facility] Comment on above: Order Comment: Speci men Type: BLOOD SPECIMENOrdering Facility: [facility] Address: [address] [place] [address] Performed By: #### 5 7021-8 ####[facility] LABORATORYCLIA [id number] [address] Neutrophils/100 WBC (Bld) 61.0 % Normal [facility] Comment on above: Order Comment: Speci men Type: BLOOD SPECIMENOrdering Facility: [facility] Address: [address] [place] [address] Performed By: #### 5 7021-8 ####[facility] LABORATORYCLIA [id number] [address] [place] Nucleated RBC (Bld) [#/Vol] 10*3/uL Normal <0.01 [facility] Comment on above: Order Comment: Speci men Type: BLOOD SPECIMENOrdering Facility: [facility] Address: [address] [place] [address] Performed By: #### 5 7021-8 ####[facility] LABORATORYCLIA [id number] [address] [place] Nucleated RBC/100 WBC (Bld) [Ratio] 0.0 /100 WBC Normal [facility] Comment on above: Order Comment: Speci men Type: BLOOD SPECIMENOrdering Facility: [facility] Address: [address] [place] [address] Performed By: #### 5 7021-8 ####[facility] LABORATORYCLIA [id number] [place] [address] [place] Platelet mean volume (Bld) [Entitic vol] 10.4 fL Normal 9.0-12.7 [facility] Comment on above: Order Comment: Speci men Type: BLOOD SPECIMENOrdering Facility: [facility] Address: [address] [place] [address] Performed By: #### 5 7021-8 ####[facility] LABORATORYCLIA [id number] [address] [place] Platelets (Bld) [#/Vol] 168 10*3/uL Normal 150-400 [facility] Comment on above: Order Comment: Speci men Type: BLOOD SPECIMENOrdering Facility: [facility] Address: [address] [place] [address] Performed By: #### 5 7021-8 ####[facility] LABORATORYCLIA [id number] [place] [address] [place] RBC (Bld) [#/Vol] 5.10 10*6/uL Normal 3.90-5.20 [facility] Comment on above: Order Comment: Speci men Type: BLOOD SPECIMENOrdering Facility: [facility] Address: [address] [place] [address] Performed By: #### 5 7021-8 ####[facility] LABORATORYCLIA [id number] [address] [place] WBC (Bld) [#/Vol] 10.13 10*3/uL Normal 3.70-11.00 [facility] Comment on above: Order Comment: Speci men Type: BLOOD SPECIMENOrdering Facility: [facility] Address: [address] [place] [address] Performed By: #### 5 7021-8 ####[facility]ENTERIA [id number] [place] [address] [facility] CNOVon 03-24-2024 CNOV Office Visit ([facility] ) -- JOI LONG ([id number]) 1955 F Date Time Provider Department 03/24/24 1:30 PM [facility] During your visit today, we recorded the following information about you: Temperature Pulse Respiration Blood pressure 97.1 degrees 89/minute 16/minute 156/86 Weight Height 75.8 kg 1.626 m Michoacano Braga MD 03/24/2024 5:55 PM Signed . Pulmonary Clinic Follow-up Note Patient Name: Joi Long PRIMARY CARE PHYSICIAN: Gregg Anton MD Date of visit: 03/24/2024 COMMUNICATION WILL BE SENT VIA SHARED MEDICAL RECORDS OR US MAIL. HISTORY OF PRESENT ILLNESS: Joi Long is a 69 year old female, Here today for F/U asthma. She also has a history of SUMA but intolerant to CPAP. She is on Symbicort 160mcg 2 puffs BID, Spiriva Respimat and montelukast. She came down with COVID 01 December 2019. She needed to be admitted for 4 days at [facility]. She had prolonged long CIVID symptoms of chronic fatigue and chronic SOB. JUDI 10/21/2022 her asthma symptoms were stable. Today she is Pt states she's bassem more SOB since she's had COVID. Never really got to her baseline breathing since having COVID. She is complaint with her inhalers See SHIRIN and Roland questionaires below. He also has remote history of POTS. She cannot recall when and where she had the tilt table test. She has never had any follow-up for this diagnosis Ms. ASTHMA CONTROL TEST Date: 03/24/2024 In the last 4 weeks, how much of the time did your asthma keep you from getting as much done at work or home that you wanted to do? None of the time (5) In the last 4 weeks, how often have you had shortness of breath? More than once per day (1) In the last 4 weeks, how often did your asthma symptoms (wheezing, coughing, shortness of breath, chest tightness or pain) wake you up at night or earlier than usual? Once or twice (4) In the last 4 weeks, how often have you used your rescue inhaler or nebulizer medication (such as Albuterol, Proventil, Ventolin, Maxair, Xoponex, or Primatene Mist)? Once a week or less (4) In the last 4 weeks, how would you rate your asthma control? Well controlled (4) Total: 18 10/21/2022: 20 01/13/2022: 25 07/04/21: 18 06/04/2021 total: 13 05/02/2021: 21 12/07/2020: 17 PAST MEDICAL HISTORY Diagnosis Date Abnormal Papanicolaou smear of vagina and vaginal HPV Asthma Breast cancer (HCC) Fibromyalgia GERD (gastroesophageal reflux disease) HLD (hyperlipidemia) HTN (hypertension) Mitral valve disorders(424.0) SUMA on CPAP Other chest pain Other malaise and fatigue PMH - PAST MEDICAL HISTORY OF ELEVATED LIPIDS PMH - PAST MEDICAL HISTORY OF Irregular Heartbeat POTS (postural orthostatic tachycardia syndrome) Shortness of breath PAST SURGICAL HISTORY Procedure Laterality Date APPENDECTOMY BACK SURGERY HX 2000, 2004, 2005 spinal fusion BLADDER SURGERY HX 12/2015 adjust bladder sling BREAST LUMPECTOMY HX 12/2018 COLONOSCOPY 2008 COLPOSCOPY CERVIX UPPER/ADJACENT VAGINA 2003 ENDOMETRIAL BX W/WO ENDOCERVIX BX W/O DILAT SPX 2003 KNEE SURGERY HX 07/2021 LIG/TRNSXJ FLP TUBE ABDL/VAG APPR UNI/BI Tubal ligation S LEAD/SPINAL CORD STIM 11/2017 removal SPINAL CORD STIM PERCT SCS ELCT 2002 TONSILLECTOMY PRIMARY/SECONDARY Tonsillectomy TOTAL ABDOMINAL HYSTERECT W/WO RMVL TUBE OVARY 02/2015 w/bladder sling MEDICATIONS: carvedilol (COREG) 6.25 mg tablet Take 6.25 mg by mouth. montelukast (SINGULAIR) 10 mg tablet Take 1 tablet by mouth once daily. tamoxifen (NOLVADEX) 20 mg tablet Take 1 tablet by mouth once daily. ipratropium-albuterol (DUONEB) 0.5 mg-3 mg(2.5 mg base)/3 mL nebu Inhale 3 mL as instructed four times daily. doxepin capsule 25 mg Take 25 mg by mouth daily at bedtime. glimepiride (AMARYL) 4 mg tablet Take 4 mg by mouth daily with breakfast. 4 mg in am 2 mg in pm budesonide-formoterol (SYMBICORT) 160-4.5 mcg/actuation inhaler Inhale 2 Puffs as instructed twice daily. semaglutide (OZEMPIC) 0.25 mg or 0.5 mg(2 mg/1.5 mL) pnij Inject 0.25 mg subcutaneously one time a week. DULoxetine (CYMBALTA) 30 mg capsule Take 60 mg by mouth every morning. MEDICATION, NON-DATABASE Take 1 Each by mouth once daily. Slim MEDICATION, NON-DATABASE Take 2 capsules by mouth daily at bedtime. Biocleanse labetalol (TRANDATE) 300 mg tablet Take 200 mg by mouth twice daily. THERAPEUTIC MULTIVITAMIN TAB Take one(1) tablet daily. gabapentin (NEURONTIN) 100 mg capsule five times daily. One in the morning, one with supper, and three at bedtime VITAMIN B-12 2,500 mcg subl DISSOLVE 1 TABLET UNDER THE TONGUE ONCE DAILY (Patient not taking: Reported on 10/21/2022) empagliflozin (JARDIANCE) 25 mg tablet Take 25 mg by mouth. canagliflozin (INVOKANA) 300 mg tablet Take 300 mg by mouth daily with breakfast. (Patient not taking: R (more content not included)... Normal [facility] NT PRO BNPon 03-24-2024 Natriuretic peptide.B prohormone N-Terminal [Mass/Vol] 205 pg/mL High NINF - 125 pg/mL [facility] NT-proBNP SerPl-mCncon 03-24 Natriuretic peptide.B prohormone N-Terminal [Mass/Vol] 205 pg/mL High <125 [facility] Comment on above: Order Comment: Speci men Type: BLOOD SPECIMEN [facility] Address: [address] [place] [address] Performed By: #### 3 3762-6 #### [facility] CLIA [id number] [address] [place] [address] [place] Natriuretic peptide.B kymberly murray N-Terminal [Mass/Vol]on 03-24-2024 Interpretation and review of laboratory results Abnormal [facility] XR CHEST 2V FRONTAL/LATon XR CHEST 2V FRONTAL/LAT * * *Final Repor t* * * DATE OF EXAM: Mar 24 2024 3:39PM [id number] - XR CHEST 2V FRONTAL/LAT / PROCEDURE REASON: multiple diagnoses * * * * Physician Interpretation * * * * EXAMINATION: CHEST RADIOGRAPH (2 VIEW FRONTAL and LATERAL) 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 RESULT: Lines, tubes, and devices: None. Lungs and pleura: No consolidation. No lung mass. No pleural effusion. No pneumothorax. Similar mild elevation right hemidiaphragm. Cardiomediastinal silhouette: Normal cardiomediastinal silhouette. Bones and soft tissues: Degenerative changes are present within the thoracic spine. IMPRESSION: No acute radiographic abnormality. 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 ASSESSMENT: Category 2 Benign RECOMMENDATION: Routine screening mammogram in 1 year. Bilateral CANCER RISK ASSESSMENT: No cancer risk scores were sent due to the patient having had a previous breast cancer diagnosis. Report Dictated on Electronically Signed By: Andreas Shah MD Electronically Signed Date/Time: 03/08/2024 2:22 PM [facility] 1955 [id number] Exam Date/Time: 03/08/2024 12:53 Procedure: BI MAMMOGRAM SCREENING TOMOSYNTHESIS BILATERAL Ordering Provider: MILLER BRADLEY Reason For Exam: PATIENT CANCER HISTORY: Self Breast Cancer FAMILY CANCER HISTORY: No Family History of Cancer Image views: 2D Bilateral CC and MLO views were acquired. 3D Bilateral CC and MLO views were acquired. Images were reviewed with CAD. Markings on images: BB's = Nipples; skin lesions Open [place] = Palpable Line = Scar COMPARISON: 2022; 2020 TISSUE DENSITY: BIRADS B - There are scattered fibroglandular densities. FINDINGS: There are post surgical changes in the left breast. No suspicious masses, architectural distortions or suspiciously clustered microcalcifications are identified. There are no significant changes when compared with prior studies. [facility] Andreas Shah MD - 03/08/2024 Patient Name: JOI LONG : 1955 Exam Date/Time: 03/08/2024 12:53 Procedure: BI MAMMOGRAM SCREENING TOMOSYNTHESIS BILATERAL Ordering Provider: MILLER BRADLEY Reason For Exam: PATIENT CANCER HISTORY: Self Breast Cancer FAMILY CANCER HISTORY: No Family History of Cancer Image views: 2D Bilateral CC and MLO views were acquired. 3D Bilateral CC and MLO views were acquired. Images were reviewed with CAD. Markings on images: BB's = Nipples; skin lesions Open [place] = Palpable Line = Scar COMPARISON: 2022; 2020 TISSUE DENSITY: BIRADS B - There are scattered fibroglandular densities. FINDINGS: There are post surgical changes in the left breast. No suspicious masses, architectural distortions or suspiciously clustered microcalcifications are identified. There are no significant changes when compared with prior studies. IMPRESSION: No mammographic evidence of malignancy. ASSESSMENT: Category 2 Benign RECOMMENDATION: Routine screening mammogram in 1 year. Bilateral CANCER RISK ASSESSMENT: No cancer risk scores were sent due to the patient having had a previous breast cancer diagnosis. Report Dictated on Electronically Signed By: Andreas Shah MD Electronically Signed Date/Time: 03/08/2024 2:22 PM EDT [facility] T-ZONE Radiology Study observation (narrative) [employer] T-Z[facility] DBT Breast - bilateral scree ningOrdered By: Anrdeas Shah on 03-08-2024 upad Work Phone: Absolute lymphocyte countOrd ered By: Gregg Anton on 01-18-2024 Lymphocytes Auto (Unsp spec) [#/Vol] 2.31 10*3/uL 0.83-4.51 [facility] Albumin Elph [Mass/Vol]Order ed By: Gregg Anton on 01-18-2024 Albumin [Mass/Vol] 3.9 g/dL 2.9-4.4 [facility] Automated lymphocyte count a s percentage of total leukocytesOrdered By: Gregg Anton on 01-18-2024 Lymphocytes/100 WBC Auto (Unsp spec) 28.0 % 19-41 [facility] Basophil percentageOrdered B y: Gregg Anton on 01-18-2024 Basophils/100 WBC (Bld) 0.8 % 0-1 [facility] Bilirubin [Mass/Vol] 0.50 mg/dL 0.20-1.00 [facility] Comment on above: For patients on eltr ombopag therapy, use of Dimension [place] TBIL is not recommended. Chloride [Moles/Vol] 109 mmol/L 98-107 [facility] Cholesterol [Mass/Vol] 205 mg/dL <200 [facility] Comment on above: <200 mg/dL Desirable 200-240 mg/dL Borderline >240 mg/dL High Risk Eosinophils/100 WBC (Bld) 4.2 % 0-5 [facility] Glucose [Mass/Vol] 118 mg/dL 74-106 [facility] Comment on above: Fasting Glucose resu lt from 100 to 125 mg/dL suggests IMPAIRED HOMEOSTASIS per A.D.A. criteria. Hemoglobin (Bld) [Mass/Vol] 13.6 g/dL 12.0-15.0 [facility] Monocytes/100 WBC (Bld) 5.3 % 0-10 [facility] Neutrophils (Bld) [#/Vol] 5.1 10*3/uL 2.0-7.7 [facility] Neutrophils/100 WBC (Bld) 61.3 % 47-70 [facility] Potassium [Moles/Vol] 3.7 mmol/L 3.5-5.1 [facility] Protein [Mass/Vol] 6.9 g/dL 6.4-8.2 [facility] Sodium [Moles/Vol] 139 mmol/L 136-145 [facility] WBC (Bld) [#/Vol] 8.3 10*3/uL 4.4-11.0 [facility] Determination of erythrocyte mean corpuscular volume (MCV)Ordered By: Gregg Anton on 01-18-2024 MCV (RBC) [Entitic vol] 93.8 fL 81-99 [facility] Erythrocyte distribution wid th ratioOrdered By: Gregg Anton on 01-18-2024 Erythrocyte distribution width (RBC) [Ratio] 12.6 % 11.6-14.6 [facility] Erythrocyte distribution wid th standard deviationOrdered By: Gregg Anton on 01-18-2024 Erythrocyte distribution width (RBC) [Entitic vol] 43.8 fL 35.1-43.9 [facility] Erythrocyte sedimentation ra teOrdered By: Gregg Anton on 01-18-2024 ESR (Bld) [Velocity] 4 mm/h 0-30 [facility] Hematocrit Auto (Bld) [Volum e fraction]Ordered By: Gregg Anton on 01-18-2024 Hematocrit (Bld) [Volume fraction] 41.0 % 37-47 [facility] Immature granulocytes/100 WB C Auto (Bld)Ordered By: Gregg Anton on 01-18-2024 Immature granulocytes/100 WBC (Bld) 0.400 % 0.0-0.9 [facility] Comment on above: IG% - Immature Granu locytes (promyelocytes, myelocytes and metamyelocytes) > 1% indicates that a LEFT SHIFT is Present. Laboratory - Chemistry and C hemistry - challengeOrdered By: Gregg Anton on 01-18-2024 Albumin/Globulin [Mass ratio] 1.2 {ratio} 0.9-2.4 [facility] ALP [Catalytic activity/Vol] 83 U/L 45-117 [facility] ALT [Catalytic activity/Vol] 39 U/L 13-56 [facility] Cholesterol in HDL [Mass/Vol] 45 mg/dL >40 [facility] Comment on above: The drugs N-Acetylcy steine and Metamizole may falsely depress this assay. Reference Range HDL <40 mg/dL Low HDL Cholesterol HDL >or= 60 mg/dL High HDL Cholesterol CO2 [Moles/Vol] 24.0 mmol/L 21.0-32.0 [facility] Cobalamin (Vitamin B12) [Mass/Vol] 500 pg/mL 211-911 [facility] Ferritin [Mass/Vol] 68 ng/mL 8-252 [facility] Globulin (S) [Mass/Vol] 3.2 g/dL 2.2-4.2 [facility] Urea nitrogen/Creatinine [Mass ratio] 14.1 mg/mg 10-20 [facility] Laboratory - Hematology and Cell countsOrdered By: Gregg Anton on 01-18-2024 MCH (RBC) [Entitic mass] 31.1 pg 27.0-32.0 [facility] MCHC (RBC) [Mass/Vol] 33.2 g/dL 32-36 [facility] Nucleated RBC/100 WBC (Bld) [Ratio] 0 % 0-5 [facility] Platelet mean volume (Bld) [Entitic vol] 10.3 fL 6.2-12.0 [facility] Platelets (Bld) [#/Vol] 207 10*3/uL 150-450 [facility] No Panel InformationOrdered By: Gregg Anton on 01-18-2024 Addendum Document Comment . [facility] Comment on above: The SPE pattern appe ars unremarkable. Evidence ofmonoclonal protein is not apparent.Performed at: [place] [facility] [id number] Director: Kalpesh Stewart PhD, Phone: [phone] Hebnc-6-Gbyaxfipg 0.3 g/dL 0.0-0.4 [facility] Jafom-0-Kodxthwua 0.6 g/dL 0.4-1.0 [facility] Estimated GFR (MDRD) Amer 78 mL/min >60 [facility] Comment on above: GFR Calc Estimated GFR (MDRD) Non-Af Amer 64 mL/min >60 [facility] Comment on above: Non- GFR Calc Folate 41.90 ng/mL 3.1-55.4 [facility] Gamma Globulins 0.8 g/dL 0.4-1.8 [facility] Vitamin D 25-Hydroxy 43.6 ng/mL [facility] Comment on above: Vitamin D 25(OH) Sta tus Range Deficiency <20 ng/mL (50nmol/L) Insufficiency 20 - 30 ng/mL (50 - 75 nmol/L) Sufficiency 30 - 100 ng/mL (75 - 250 nmol/L) Toxicity >100 ng/mL (>250 nmol/L) Protein Fractions Elph [Inte rp]Ordered By: Gregg Anton on 01-18-2024 Protein Fractions [Interp] Comment . [facility] Comment on above: Protein electrophore sis scan will follow via computer,mail, or [facility] delivery. RBC Auto (Bld) [#/Vol]Ordere d By: Gregg Anton on 01-18-2024 RBC (Bld) [#/Vol] 4.37 10*6/uL 4.2-5.4 [facility] Serum albumin to globulin ra julia by protein electrophoresisOrdered By: Gregg Anton on 01-18-2024 Albumin/Globulin Elph [Mass ratio] 1.5 0.7-1.7 [facility] Serum globulin measurement ( mass/volume)Ordered By: Gregg Anton on 01-18-2024 Globulin (S) [Mass/Vol] 2.6 g/dL 2.2-3.9 [facility] Serum or plasma beta globuli n measurement by electrophoresis (mass/volume)Ordered By: Gregg Anton on 01-18-2024 Beta globulin Elph [Mass/Vol] 0.9 g/dL 0.7-1.3 [facility] Serum or plasma calcium nidhi urement (mass/volume)Ordered By: Gregg Anton on 01-18-2024 Calcium [Mass/Vol] 9.3 mg/dL 8.5-10.1 [facility] Serum or plasma creatinine m easurement (mass/volume)Ordered By: Gregg Anton on 01-18-2024 Creatinine [Mass/Vol] 0.92 mg/dL 0.55-1.02 [facility] Comment on above: The validity of the calculated GFR & GFRAA in patients over 70 years has not been determined. Clinical correlation is essential. Serum or plasma protein mono clonal measurement by electrophoresis (mass/volume)Ordered By: Gregg Anton on 01-18-2024 Protein.monoclonal Elph [Mass/Vol] Not Observed g/dL Not Observed [facility] Serum or plasma thyroid stim ulating hormone (TSH) measurement (units/volume)Ordered By: Gregg Anton on 01-18-2024 TSH Qn 1.41 uIU/mL 0.358-3.74 [facility] Serum or plasma urea nitroge n measurement (mass/volume)Ordered By: Gregg Anton on 01-18-2024 Urea nitrogen [Mass/Vol] 13 mg/dL 7-18 [facility] Thin prep Papanicolaou smear with manual screeningOrdered By: Gregg Anton on 01-18-2024 Thin prep Papanicolaou smear with manual screening 3.7 g/dL 3.2-5.0 [facility] Thin prep Papanicolaou smear with manual screening 31 U/L 15-37 [facility] Thin prep Papanicolaou smear with manual screening 6 5-15 [facility] Total protein bloodOrdered B y: Gregg Anton on 01-18-2024 Protein [Mass/Vol] 6.5 g/dL 6.0-8.5 [facility] Whole blood hemoglobin A1c/t otal hemoglobin ratio (mass fraction)Ordered By: Gregg Anton on 01-18-2024 HbA1c (Bld) [Mass fraction] 6.6 % 3.8-5.6 [facility] Comment on above: Normal < 5.7 % Predi abetic 5.7 - 6.4 % Diabetic >or= 6.5 % Please note range changes. DBT Breast - bilateral scree mary 03-05-2023 No mammographic evid ence of malignancy. ASSESSMENT: Category 2 Benign RECOMMENDATION: Routine screening mammogram in 1 year. Bilateral Report Dictated on Electronically Signed By: Michoacano Davenport Electronically Signed Date/Time: 03/05/2023 2:56 PM EDT [facility] Patient Name: JOI LONG : 1955 Exam Date/Time: 03/05/2023 14:26 Procedure: BI MAMMOGRAM SCREENING TOMOSYNTHESIS BILATERAL Ordering Provider: MILLER BRADLEY Reason For Exam: Breast cancer screening, intermediate risk (Female >= 18y) Image views: 2D Bilateral CC and MLO views were acquired. 3D Bilateral CC and MLO views were acquired. Images were reviewed with CAD. Markings on images: BB's = Nipples; skin lesions Open [place] = Palpable Line = Scar COMPARISON: 03/04/2022 and 02/28/2021 TISSUE DENSITY: BIRADS B - There are scattered fibroglandular densities. FINDINGS: There are post surgical changes deep to a scar marker the left breast. No suspicious masses, architectural distortions or suspiciously clustered microcalcifications are identified. There is no evidence of skin thickening or nipple retraction. There are no significant changes when compared with prior studies. [facility] Michoacano Davenport MD - 03/05/2023 [facility] 1955 [id number] Exam Date/Time: 03/05/2023 14:26 Procedure: BI MAMMOGRAM SCREENING TOMOSYNTHESIS BILATERAL Ordering Provider: MILLER BRADLEY Reason For Exam: Breast cancer screening, intermediate risk (Female >= 18y) Image views: 2D Bilateral CC and MLO views were acquired. 3D Bilateral CC and MLO views were acquired. Images were reviewed with CAD. Markings on images: BB's = Nipples; skin lesions Open [place] = Palpable Line = Scar COMPARISON: 03/04/2022 and 02/28/2021 TISSUE DENSITY: BIRADS B - There are scattered fibroglandular densities. FINDINGS: There are post surgical changes deep to a scar marker the left breast. No suspicious masses, architectural distortions or suspiciously clustered microcalcifications are identified. There is no evidence of skin thickening or nipple retraction. There are no significant changes when compared with prior studies. IMPRESSION: No mammographic evidence of malignancy. ASSESSMENT: Category 2 Benign RECOMMENDATION: Routine screening mammogram in 1 year. Bilateral Report Dictated on Electronically Signed By: Michoacano Davenport Electronically Signed Date/Time: 03/05/2023 2:56 PM EDT [facility] Radiology Study observation (narrative) [facility] DBT Breast - bilateral scree ningOrdered By: Michoacano Davenport on 03-05-2023 [facility] Work Phone: Culture, urineOrdered By: Elyse Jolley on 11-28-2022 Bacteria identified Cx Nom (U) Presumptive E. coli [facility] Absolute lymphocyte countOrd ered By: Dr. Anton on 11-13-2022 Lymphocytes Auto (Unsp spec) [#/Vol] 2.38 10*3/uL 0.83-4.51 [facility] Basophil percentageOrdered B y: Dr. Anton on 11-13-2022 Basophils/100 WBC (Bld) 0.9 % 0-1 [facility] Bilirubin [Mass/Vol] 0.30 mg/dL 0.20-1.00 [facility] Comment on above: For patients on eltr ombopag therapy, use of Dimension [place] TBIL is not recommended. Chloride [Moles/Vol] 108 mmol/L 98-107 [facility] Eosinophils/100 WBC (Bld) 4.4 % 0-5 [facility] Glucose [Mass/Vol] 164 mg/dL 74-106 [facility] Comment on above: Fasting Glucose resu lt greater than or equal to 126 mg/dL suggests DIABETES MELLITUS per A.D.A. criteria. Neutrophils (Bld) [#/Vol] 4.3 10*3/uL 2.0-7.7 [facility] Neutrophils/100 WBC (Bld) 55.9 % 47-70 [facility] Potassium [Moles/Vol] 3.8 mmol/L 3.5-5.1 [facility] Protein [Mass/Vol] 6.9 g/dL 6.4-8.2 [facility] Sodium [Moles/Vol] 142 mmol/L 136-145 [facility] WBC (Bld) [#/Vol] 7.7 10*3/uL 4.4-11.0 [facility] Blood erythrocytes count (nu mber/volume)Ordered By: Dr. Anton on 11-13-2022 RBC (Bld) [#/Vol] 4.26 10*6/uL 4.2-5.4 [facility] Blood hemoglobin measurement (mass/volume)Ordered By: Dr. Anton on 11-13-2022 Hemoglobin (Bld) [Mass/Vol] 13.3 g/dL 12.0-15.0 [facility] Blood lymphocytes/100 leukoc ytesOrdered By: Dr. Anton on 11-13-2022 Lymphocytes/100 WBC (Bld) 30.8 % 19-41 [facility] Blood monocytes/100 leukocyt esOrdered By: Dr. Anton on 11-13-2022 Monocytes/100 WBC (Bld) 7.6 % 0-10 [facility] Blood platelet mean volumeOr dered By: Dr. Anton on 11-13-2022 Platelet mean volume (Bld) [Entitic vol] 9.8 fL 6.2-12.0 [facility] Determination of erythrocyte mean corpuscular volume (MCV)Ordered By: Dr. Anton on 11-13-2022 MCV (RBC) [Entitic vol] 97.2 fL 81-99 [facility] Hematocrit Auto (Bld) [Volum e fraction]Ordered By: Dr. Anton on 11-13-2022 Hematocrit (Bld) [Volume fraction] 41.4 % 37-47 [facility] Laboratory - Chemistry and C hemistry - challengeOrdered By: Dr. Anton on 11-13-2022 ALP [Catalytic activity/Vol] 84 U/L 45-117 [facility] ALT [Catalytic activity/Vol] 35 U/L 13-56 [facility] CO2 [Moles/Vol] 28.0 mmol/L 21.0-32.0 [facility] Cobalamin (Vitamin B12) [Mass/Vol] 480 pg/mL 211-911 [facility] Globulin (S) [Mass/Vol] 3.2 g/dL 2.2-4.2 [facility] Magnesium [Mass/Vol] 2.2 mg/dL 1.6-2.6 [facility] Urea nitrogen/Creatinine [Mass ratio] 18.5 mg/mg 10-20 [facility] Laboratory - Hematology and Cell countsOrdered By: Dr. Anton on 11-13-2022 Erythrocyte distribution width (RBC) [Entitic vol] 45.1 fL 35.1-43.9 [facility] Erythrocyte distribution width (RBC) [Ratio] 12.5 % 11.6-14.6 [facility] Immature granulocytes/100 WBC (Bld) 0.400 % 0.0-0.9 [facility] Comment on above: IG% - Immature Granu locytes (promyelocytes, myelocytes and metamyelocytes) > 1% indicates that a LEFT SHIFT is Present. MCH (RBC) [Entitic mass] 31.2 pg 27.0-32.0 [facility] Nucleated RBC/100 WBC (Bld) [Ratio] 0 % 0-5 [facility] MCHC Auto (RBC) [Mass/Vol]Or dered By: Dr. Anton on 11-13-2022 MCHC (RBC) [Mass/Vol] 32.1 g/dL 32-36 [facility] No Panel InformationOrdered By: Dr. Anton on 11-13-2022 Estimated GFR (MDRD) Amer 78 mL/min >60 [facility] Comment on above: GFR Calc Estimated GFR (MDRD) Non-Af Amer 65 mL/min >60 [facility] Comment on above: Non- GFR Calc Thyroid Stimulating Hormone (TSH) 0.89 uIU/mL 0.358-3.74 [facility] Platelets bldOrdered By: Dr. Anton on 11-13-2022 Platelets (Bld) [#/Vol] 212 10*3/uL 150-450 [facility] Serum or plasma albumin nidhi urement (mass/volume)Ordered By: Dr. Anton on 11-13-2022 Albumin [Mass/Vol] 3.7 g/dL 3.2-5.0 [facility] Serum or plasma albumin/glob ulin mass ratioOrdered By: Dr. Anton on 11-13-2022 Albumin/Globulin [Mass ratio] 1.2 {ratio} 0.9-2.4 [facility] Serum or plasma calcium nidhi urement (mass/volume)Ordered By: Dr. Anton on 11-13-2022 Calcium [Mass/Vol] 9.4 mg/dL 8.5-10.1 [facility] Serum or plasma creatinine m easurement (mass/volume)Ordered By: Dr. Anton on 11-13-2022 Creatinine [Mass/Vol] 0.92 mg/dL 0.55-1.02 [facility] Comment on above: The validity of the calculated GFR & GFRAA in patients over 70 years has not been determined. Clinical correlation is essential. Serum or plasma folate measu rement (mass/volume)Ordered By: Dr. Anton on 11-13-2022 Folate [Mass/Vol] 17.30 ng/mL 3.1-55.4 [facility] Serum or plasma urea nitroge n measurement (mass/volume)Ordered By: Dr. Anton on 11-13-2022 Urea nitrogen [Mass/Vol] 17 mg/dL 7-18 [facility] Thin prep Papanicolaou smear with manual screeningOrdered By: Dr. Anton on 11-13-2022 Thin prep Papanicolaou smear with manual screening 23 U/L 15-37 [facility] Thin prep Papanicolaou smear with manual screening 6 5-15 [facility] Whole blood hemoglobin A1c/t otal hemoglobin ratio (mass fraction)Ordered By: Dr. Anton on 11-13-2022 HbA1c (Bld) [Mass fraction] 6.6 % 3.8-5.6 [facility] Comment on above: Normal < 5.7 % Predi abetic 5.7 - 6.4 % Diabetic >or= 6.5 % Please note range changes. Absolute lymphocyte countOrd ered By: Ophelia Salinas on 10-20-2022 Lymphocytes Auto (Unsp spec) [#/Vol] 2.11 10*3/uL 0.83-4.51 [facility] Basophil percentageOrdered B y: Ophelia Salinas on 10-20-2022 Basophils/100 WBC (Bld) 1.0 % 0-1 [facility] Bilirubin [Mass/Vol] 0.40 mg/dL 0.20-1.00 [facility] Comment on above: For patients on eltr ombopag therapy, use of Dimension [place] TBIL is not recommended. Chloride [Moles/Vol] 108 mmol/L 98-107 [facility] Eosinophils/100 WBC (Bld) 4.7 % 0-5 [facility] Glucose [Mass/Vol] 153 mg/dL 74-106 [facility] Comment on above: Fasting Glucose resu lt greater than or equal to 126 mg/dL suggests DIABETES MELLITUS per A.D.A. criteria. Neutrophils (Bld) [#/Vol] 4.3 10*3/uL 2.0-7.7 [facility] Neutrophils/100 WBC (Bld) 58.7 % 47-70 [facility] Potassium [Moles/Vol] 3.7 mmol/L 3.5-5.1 [facility] Protein [Mass/Vol] 6.6 g/dL 6.4-8.2 [facility] Sodium [Moles/Vol] 139 mmol/L 136-145 [facility] WBC (Bld) [#/Vol] 7.3 10*3/uL 4.4-11.0 [facility] Blood erythrocytes count (nu mber/volume)Ordered By: Ophelia Salinas on 10-20-2022 RBC (Bld) [#/Vol] 4.23 10*6/uL 4.2-5.4 [facility] Blood hemoglobin measurement (mass/volume)Ordered By: Ophelia Salinas on 10-20-2022 Hemoglobin (Bld) [Mass/Vol] 13.1 g/dL 12.0-15.0 [facility] Blood lymphocytes/100 leukoc ytesOrdered By: Ophelia Salinas on 10-20-2022 Lymphocytes/100 WBC (Bld) 28.9 % 19-41 [facility] Blood monocytes/100 leukocyt esOrdered By: Ophelia Salinas on 10-20-2022 Monocytes/100 WBC (Bld) 6.3 % 0-10 [facility] Blood platelet mean volumeOr dered By: Ophelia Salinas on 10-20-2022 Platelet mean volume (Bld) [Entitic vol] 9.9 fL 6.2-12.0 [facility] Determination of erythrocyte mean corpuscular volume (MCV)Ordered By: Ophelia Salinas on 10-20-2022 MCV (RBC) [Entitic vol] 96.5 fL 81-99 [facility] Hematocrit Auto (Bld) [Volum e fraction]Ordered By: Ophelia Salinas on 10-20-2022 Hematocrit (Bld) [Volume fraction] 40.8 % 37-47 [facility] Laboratory - Chemistry and C hemistry - challengeOrdered By: Ophelia Salinas on 10-20-2022 ALP [Catalytic activity/Vol] 81 U/L 45-117 [facility] ALT [Catalytic activity/Vol] 28 U/L 13-56 [facility] CO2 [Moles/Vol] 22.0 mmol/L 21.0-32.0 [facility] Globulin (S) [Mass/Vol] 3.1 g/dL 2.2-4.2 [facility] Urea nitrogen/Creatinine [Mass ratio] 16.3 mg/mg 10-20 [facility] Laboratory - Hematology and Cell countsOrdered By: Ophelia Salinas on 10-20-2022 Erythrocyte distribution width (RBC) [Entitic vol] 46.8 fL 35.1-43.9 [facility] Erythrocyte distribution width (RBC) [Ratio] 13.1 % 11.6-14.6 [facility] Immature granulocytes/100 WBC (Bld) 0.400 % 0.0-0.9 [facility] Comment on above: IG% - Immature Granu locytes (promyelocytes, myelocytes and metamyelocytes) > 1% indicates that a LEFT SHIFT is Present. MCH (RBC) [Entitic mass] 31.0 pg 27.0-32.0 [facility] Nucleated RBC/100 WBC (Bld) [Ratio] 0 % 0-5 [facility] MCHC Auto (RBC) [Mass/Vol]Or dered By: Ophelia Salinas on 10-20-2022 MCHC (RBC) [Mass/Vol] 32.1 g/dL 32-36 [facility] No Panel InformationOrdered By: Ophelia Salinas on 10-20-2022 Estimated GFR (MDRD) Amer 73 mL/min >60 [facility] Comment on above: GFR Calc Estimated GFR (MDRD) Non-Af Amer 60 mL/min >60 [facility] Comment on above: Non- GFR Calc Thyroid Stimulating Hormone (TSH) 1.73 uIU/mL 0.358-3.74 [facility] Platelets bldOrdered By: Alexandra Salinas on 10-20-2022 Platelets (Bld) [#/Vol] 210 10*3/uL 150-450 [facility] Serum or plasma albumin nidhi urement (mass/volume)Ordered By: Ophelia Salinas on 10-20-2022 Albumin [Mass/Vol] 3.5 g/dL 3.2-5.0 [facility] Serum or plasma albumin/glob ulin mass ratioOrdered By: Ophelia Salinas on 10-20-2022 Albumin/Globulin [Mass ratio] 1.1 {ratio} 0.9-2.4 [facility] Serum or plasma calcium nidhi urement (mass/volume)Ordered By: Ophelia Salinas on 10-20-2022 Calcium [Mass/Vol] 9.2 mg/dL 8.5-10.1 [facility] Serum or plasma creatinine m easurement (mass/volume)Ordered By: Ophelia Salinas on 10-20-2022 Creatinine [Mass/Vol] 0.98 mg/dL 0.55-1.02 [facility] Comment on above: The validity of the calculated GFR & GFRAA in patients over 70 years has not been determined. Clinical correlation is essential. Serum or plasma urea nitroge n measurement (mass/volume)Ordered By: Ophelia Salinas on 10-20-2022 Urea nitrogen [Mass/Vol] 16 mg/dL 7-18 [facility] Thin prep Papanicolaou smear with manual screeningOrdered By: Opheliakeely Salinas on 10-20-2022 Thin prep Papanicolaou smear with manual screening 17 U/L 15-37 [facility] Thin prep Papanicolaou smear with manual screening 9 5-15 [facility] Basophil percentageOrdered B y: Ophelia Salinas on 10-06-2022 Chloride [Moles/Vol] 108 mmol/L 98-107 [facility] Glucose [Mass/Vol] 129 mg/dL 74-106 [facility] Comment on above: Fasting Glucose resu lt greater than or equal to 126 mg/dL suggests DIABETES MELLITUS per A.D.A. criteria. Potassium [Moles/Vol] 4.2 mmol/L 3.5-5.1 [facility] Sodium [Moles/Vol] 140 mmol/L 136-145 [facility] Laboratory - Chemistry and C hemistry - challengeOrdered By: Ophelia Salinas on 10-06-2022 CO2 [Moles/Vol] 21.0 mmol/L 21.0-32.0 [facility] Urea nitrogen/Creatinine [Mass ratio] 12.0 mg/mg 10-20 [facility] No Panel InformationOrdered By: Ophelia Salinas on 10-06-2022 Estimated GFR (MDRD) Amer 71 mL/min >60 [facility] Comment on above: GFR Calc Estimated GFR (MDRD) Non-Af Amer 59 mL/min >60 [facility] Comment on above: Non- GFR Calc Serum or plasma calcium nidhi urement (mass/volume)Ordered By: Ophelia Salinas on 10-06-2022 Calcium [Mass/Vol] 9.0 mg/dL 8.5-10.1 [facility] Serum or plasma creatinine m easurement (mass/volume)Ordered By: Ophelia Salinas on 10-06-2022 Creatinine [Mass/Vol] 1.00 mg/dL 0.55-1.02 [facility] Comment on above: The validity of the calculated GFR & GFRAA in patients over 70 years has not been determined. Clinical correlation is essential. Serum or plasma urea nitroge n measurement (mass/volume)Ordered By: Ophelia Salinas on 10-06-2022 Urea nitrogen [Mass/Vol] 12 mg/dL 7-18 [facility] Thin prep Papanicolaou smear with manual screeningOrdered By: Opheliakeely Salinas on 10-06-2022 Thin prep Papanicolaou smear with manual screening 11 5-15 [facility] Laboratory - Microbiology an d Antimicrobial susceptibilityOrdered By: Dr. Yoo on 09-27-2022 Bacteria identified Cx Nom (Bld) No growth in 5 days. [facility] Culture, urineOrdered By: Dr Esdras Yoo on 09-24-2022 Bacteria identified Cx Nom (U) Streptococcus agalactiae (B) [facility] Absolute lymphocyte countOrd ered By: Dr. Tariq on 09-23-2022 Lymphocytes Auto (Unsp spec) [#/Vol] 2.46 10*3/uL 0.83-4.51 [facility] Basophil percentageOrdered B y: Dr. Tariq on 09-23-2022 Basophils/100 WBC (Bld) 0.4 % 0-1 [facility] Chloride [Moles/Vol] 116 mmol/L 98-107 [facility] Eosinophils/100 WBC (Bld) 0.1 % 0-5 [facility] Glucose [Mass/Vol] 153 mg/dL 74-106 [facility] Comment on above: Fasting Glucose resu lt greater than or equal to 126 mg/dL suggests DIABETES MELLITUS per A.D.A. criteria. Neutrophils (Bld) [#/Vol] 7.8 10*3/uL 2.0-7.7 [facility] Neutrophils/100 WBC (Bld) 69.6 % 47-70 [facility] Potassium [Moles/Vol] 3.5 mmol/L 3.5-5.1 [facility] Sodium [Moles/Vol] 141 mmol/L 136-145 [facility] WBC (Bld) [#/Vol] 11.2 10*3/uL 4.4-11.0 [facility] Blood erythrocytes count (nu mber/volume)Ordered By: Dr. Tariq on 09-23-2022 RBC (Bld) [#/Vol] 3.86 10*6/uL 4.2-5.4 [facility] Blood hemoglobin measurement (mass/volume)Ordered By: Dr. Tariq on 09-23-2022 Hemoglobin (Bld) [Mass/Vol] 12.2 g/dL 12.0-15.0 [facility] Blood lymphocytes/100 leukoc ytesOrdered By: Dr. Tariq on 09-23-2022 Lymphocytes/100 WBC (Bld) 21.9 % 19-41 [facility] Blood monocytes/100 leukocyt esOrdered By: Dr. Tariq on 09-23-2022 Monocytes/100 WBC (Bld) 7.2 % 0-10 [facility] Blood platelet mean volumeOr dered By: Dr. Tariq on 09-23-2022 Platelet mean volume (Bld) [Entitic vol] 9.1 fL 6.2-12.0 [facility] Determination of erythrocyte mean corpuscular volume (MCV)Ordered By: Dr. Tariq on 09-23-2022 MCV (RBC) [Entitic vol] 101.6 fL 81-99 [facility] Comment on above: Delta: 96.6 on 09/22 Glucose Glucometer (BldC) [M ass/Vol]Ordered By: Dr. Tariq on 09-23-2022 Glucose [Mass/Vol] 134 mg/dL 74-106 [facility] Comment on above: MANAGEMENT OF PATIEN T CARE PER NURSING PROTOCOL Hematocrit Auto (Bld) [Volum e fraction]Ordered By: Dr. Tariq on 09-23-2022 Hematocrit (Bld) [Volume fraction] 39.2 % 37-47 [facility] Laboratory - Chemistry and C hemistry - challengeOrdered By: Dr. Tariq on 09-23-2022 CO2 [Moles/Vol] 14.0 mmol/L 21.0-32.0 [facility] Urea nitrogen/Creatinine [Mass ratio] 14.8 mg/mg 10-20 [facility] Laboratory - Hematology and Cell countsOrdered By: Dr. Tariq on 09-23-2022 Erythrocyte distribution width (RBC) [Entitic vol] 49.5 fL 35.1-43.9 [facility] Erythrocyte distribution width (RBC) [Ratio] 13.2 % 11.6-14.6 [facility] Immature granulocytes/100 WBC (Bld) 0.800 % 0.0-0.9 [facility] Comment on above: IG% - Immature Granu locytes (promyelocytes, myelocytes and metamyelocytes) > 1% indicates that a LEFT SHIFT is Present. MCH (RBC) [Entitic mass] 31.6 pg 27.0-32.0 [facility] Nucleated RBC/100 WBC (Bld) [Ratio] 0 % 0-5 [facility] MCHC Auto (RBC) [Mass/Vol]Or dered By: Dr. Tariq on 09-23-2022 MCHC (RBC) [Mass/Vol] 31.1 g/dL 32-36 [facility] No Panel InformationOrdered By: Dr. Tariq on 09-23-2022 Estimated Creatinine Clearance Calc 44.25 ml/min [facility] Estimated GFR (MDRD) Amer 65 mL/min >60 [facility] Comment on above: GFR Calc Estimated GFR (MDRD) Non-Af Amer 54 mL/min >60 [facility] Comment on above: Non- GFR Calc Thyroid Stimulating Hormone (TSH) 0.35 uIU/mL 0.358-3.74 [facility] Platelets bldOrdered By: Dr. Tariq on 09-23-2022 Platelets (Bld) [#/Vol] 147 10*3/uL 150-450 [facility] Serum or plasma calcium nidhi urement (mass/volume)Ordered By: Dr. Tariq on 09-23-2022 Calcium [Mass/Vol] 8.3 mg/dL 8.5-10.1 [facility] Serum or plasma creatinine m easurement (mass/volume)Ordered By: Dr. Tariq on 09-23-2022 Creatinine [Mass/Vol] 1.08 mg/dL 0.55-1.02 [facility] Comment on above: The validity of the calculated GFR & GFRAA in patients over 70 years has not been determined. Clinical correlation is essential. Serum or plasma urea nitroge n measurement (mass/volume)Ordered By: Dr. Tariq on 09-23-2022 Urea nitrogen [Mass/Vol] 16 mg/dL 7-18 [facility] Thin prep Papanicolaou smear with manual screeningOrdered By: Dr. Tariq on 09-23-2022 Thin prep Papanicolaou smear with manual screening 11 5-15 [facility] Whole blood hemoglobin A1c/t otal hemoglobin ratio (mass fraction)Ordered By: Dr. Tariq on 09-23-2022 HbA1c (Bld) [Mass fraction] 6.8 % 3.8-5.6 [facility] Comment on above: Normal < 5.7 % Predi abetic 5.7 - 6.4 % Diabetic >or= 6.5 % Please note range changes. Absolute lymphocyte counton 09-22-2022 Lymphocytes Auto (Unsp spec) [#/Vol] 1.05 10*3/uL 0.83-4.51 [facility] Work Phone: Basophil percentageOrdered B y: Dr. Tariq on 09-22-2022 Basophil percentage 4.7 mg/dL 2.5-4.9 [facility] Basophil percentageon 2022 Chloride [Moles/Vol] 111 mmol/L 98-107 [facility] Work Phone: Glucose [Mass/Vol] 184 mg/dL 74-106 [facility] Work Phone: Comment on above: Fasting Glucose resu lt greater than or equal to 126 mg/dL suggests DIABETES MELLITUS per A.D.A. criteria. Potassium [Moles/Vol] 4.5 mmol/L 3.5-5.1 [facility] Work Phone: Sodium [Moles/Vol] 143 mmol/L 136-145 [facility] Work Phone: [phone] Basophils/100 WBC (Bld) 0.3 % 0-1 [facility] Work Phone: Eosinophils/100 WBC (Bld) 0.0 % 0-5 [facility] Work Phone: [phone] Neutrophils (Bld) [#/Vol] 18.9 10*3/uL 2.0-7.7 [facility] Work Phone: Neutrophils/100 WBC (Bld) 91.5 % 47-70 [facility] Work Phone: WBC (Bld) [#/Vol] 20.7 10*3/uL 4.4-11.0 [facility] Work Phone: Basophil percentageOrdered B y: Dr. Yoo on 09-22-2022 Lactate [Moles/Vol] 1.8 mmol/L 0.4-2.0 [facility] Basophil percentage 0-5 SEEN /hpf 0-5 [facility] Bilirubin [Mass/Vol] 0.80 mg/dL 0.20-1.00 [facility] Comment on above: For patients on eltr ombopag therapy, use of Dimension [place] TBIL is not recommended. Protein [Mass/Vol] 8.1 g/dL 6.4-8.2 [facility] Bilirubin Test strip Ql (U)O rdered By: Dr. Yoo on 09-22-2022 Bilirubin Ql (U) Negative Negative [facility] Blood erythrocytes count (nu mber/volume)on 09-22-2022 RBC (Bld) [#/Vol] 5.33 10*6/uL 4.2-5.4 [facility] Work Phone: Blood hemoglobin measurement (mass/volume)on 09-22-2022 Hemoglobin (Bld) [Mass/Vol] 16.7 g/dL 12.0-15.0 [facility] Work Phone: Blood lymphocytes/100 leukoc yteson 09-22-2022 Lymphocytes/100 WBC (Bld) 5.1 % 19-41 [facility] Work Phone: Blood monocytes/100 leukocyt eson 09-22-2022 Monocytes/100 WBC (Bld) 2.4 % 0-10 [facility] Work Phone: Blood platelet mean volumeon 09-22-2022 Platelet mean volume (Bld) [Entitic vol] 9.4 fL 6.2-12.0 [facility] Work Phone: Determination of erythrocyte mean corpuscular volume (MCV)on 09-22-2022 MCV (RBC) [Entitic vol] 96.6 fL 81-99 [facility] Work Phone: Glucose Glucometer (BldC) [M ass/Vol]on 09-22-2022 Glucose [Mass/Vol] 183 mg/dL 74-106 [facility] Work Phone: Comment on above: MANAGEMENT OF PATIEN T CARE PER NURSING PROTOCOL HCO3 (BldA) [Moles/Vol]Order ed By: Dr. Walters on 09-22-2022 HCO3 (Bld) [Moles/Vol] 9 mmol/L 22-26 [facility] Hematocrit Auto (Bld) [Volum e fraction]on 09-22-2022 Hematocrit (Bld) [Volume fraction] 51.5 % 37-47 [facility] Work Phone: Influenza virus A and B and SARS-CoV-2 (COVID-19) Ag panel - Upper respiratory specimOrdered By: Dr. Yoo on 09-22-2022 SARS-CoV-2 (COVID-19) RNA HEIKE+probe Ql (Resp) [facility] Ketones Test strip Ql (U)Ord ered By: Dr. Yoo on 09-22-2022 Ketones Ql (U) 150 mg/dl Negative [facility] Comment on above: CRITICAL VALUE *HCRI TICAL VALUE VERIFIED. CALLED TO BERNARD LENZ (ER)09/22/[address]RESULTS READ BACK BY SAME. Laboratory - Chemistry and C hemistry - challengeon 09-22-2022 CO2 [Moles/Vol] 10.0 mmol/L 21.0-32.0 [facility] Work Phone: Urea nitrogen/Creatinine [Mass ratio] 18.8 mg/mg 10-20 [facility] Work Phone: Laboratory - Chemistry and C hemistry - challengeOrdered By: Dr. Tariq on 09-22-2022 Magnesium [Mass/Vol] 2.2 mg/dL 1.6-2.6 [facility] Laboratory - Chemistry and C hemistry - challengeOrdered By: Dr. Walters on 09-22-2022 CO2 [Moles/Vol] 10 mmol/L 23-33 [facility] Lipase [Catalytic activity/Vol] 88 U/L 73-393 [facility] Laboratory - Chemistry and C hemistry - challengeOrdered By: Dr. Yoo on 09-22-2022 ALP [Catalytic activity/Vol] 70 U/L 45-117 [facility] ALT [Catalytic activity/Vol] 89 U/L 13-56 [facility] Globulin (S) [Mass/Vol] 3.9 g/dL 2.2-4.2 [facility] Laboratory - Hematology and Cell countson 09-22-2022 Erythrocyte distribution width (RBC) [Entitic vol] 45.1 fL 35.1-43.9 [facility] Work Phone: Erythrocyte distribution width (RBC) [Ratio] 12.7 % 11.6-14.6 [facility] Work Phone: Immature granulocytes/100 WBC (Bld) 0.700 % 0.0-0.9 [facility] Work Phone: Comment on above: IG% - Immature Granu locytes (promyelocytes, myelocytes and metamyelocytes) > 1% indicates that a LEFT SHIFT is Present. MCH (RBC) [Entitic mass] 31.3 pg 27.0-32.0 [facility] Work Phone: Nucleated RBC/100 WBC (Bld) [Ratio] 0 % 0-5 [facility] Work Phone: MCHC Auto (RBC) [Mass/Vol]on 09-22-2022 MCHC (RBC) [Mass/Vol] 32.4 g/dL 32-36 [facility] Work Phone: Mucus LM Ql (Urine sed)Order ed By: Dr. Yoo on 09-22-2022 Mucus Ql (Urine sed) 0 SEEN /hpf [facility] Nitrite Test strip Ql (U)Ord ered By: Dr. Yoo on 09-22-2022 Nitrite Ql (U) Negative Negative [facility] No Panel Informationon 09-22 Estimated Creatinine Clearance Calc 40.84 ml/min [facility] Work Phone: Estimated GFR (MDRD) Amer 59 mL/min >60 [facility] Work Phone: Comment on above: GFR Calc Estimated GFR (MDRD) Non-Af Amer 49 mL/min >60 [facility] Work Phone: Comment on above: Non- GFR Calc No Panel InformationOrdered By: Dr. Walters on 09-22-2022 Bed Mix Venous Bld PCO2 at Pat Temp 27.0 mmHg 41-51 [facility] Bld Gas Crit Called To/Read Back By Yes [facility] Blood Gas Specimen Type ALIE [facility] Venous Blood Base Excess -19 mmol/L -1.0-3.5 [facility] No Panel InformationOrdered By: Dr. Yoo on 09-22-2022 Troponin I High Sensitivity 7 pg/mL 3.0-54.0 [facility] Comment on above: Please Note: New Maura t Units and Gender Specific Reference Ranges. For more information see Policy Stat Procedure [place] High Sensitivity Troponin (TNIH) and attachments. PO2 venousOrdered By: Dr. Radha salinas on 09-22-2022 Oxygen (BldV) [Partial pressure] 58 mm[Hg] 25-40 [facility] Platelets bldon 09-22-2022 Platelets (Bld) [#/Vol] 248 10*3/uL 150-450 [facility] Work Phone: Protein Test strip Ql (U)Ord ered By: Dr. Yoo on 09-22-2022 Protein Ql (U) 15 mg/dl Negative [facility] Serum or plasma acetone nidhi urement (mass/volume)Ordered By: Dr. Walters on 09-22-2022 Acetone [Mass/Vol] MODERATE NEG [facility] Serum or plasma albumin nidhi urement (mass/volume)Ordered By: Dr. Yoo on 09-22-2022 Albumin [Mass/Vol] 4.2 g/dL 3.2-5.0 [facility] Serum or plasma albumin/glob ulin mass ratioOrdered By: Dr. Yoo on 09-22-2022 Albumin/Globulin [Mass ratio] 1.1 {ratio} 0.9-2.4 [facility] Serum or plasma calcium nidhi urement (mass/volume)on 09-22-2022 Calcium [Mass/Vol] 8.9 mg/dL 8.5-10.1 [facility] Work Phone: Serum or plasma creatinine m easurement (mass/volume)on 09-22-2022 Creatinine [Mass/Vol] 1.17 mg/dL 0.55-1.02 [facility] Work Phone: Comment on above: The validity of the calculated GFR & GFRAA in patients over 70 years has not been determined. Clinical correlation is essential. Serum or plasma urea nitroge n measurement (mass/volume)on 09-22-2022 Urea nitrogen [Mass/Vol] 22 mg/dL 7-18 [facility] Work Phone: Squamous epithelial cells de tection in urine sediment by light microscopyOrdered By: Dr. Yoo on 09-22-2022 Epithelial cells.squamous LM Ql (Urine sed) 0-5 SEEN /hpf 5-10 [facility] Thin prep Papanicolaou smear with manual screeningon 09-22-2022 Thin prep Papanicolaou smear with manual screening 22 5-15 [facility] Work Phone: Thin prep Papanicolaou smear with manual screeningOrdered By: Dr. Tariq on 09-22-2022 Thin prep Papanicolaou smear with manual screening 318 mOsm/KG 280-301 [facility] Thin prep Papanicolaou smear with manual screeningOrdered By: Dr. Yoo on 09-22-2022 Thin prep Papanicolaou smear with manual screening 51 U/L 15-37 [facility] Urine blood detectionOrdered By: Dr. Yoo on 09-22-2022 RBC Ql (U) 10 /ul Negative [facility] RBC Ql (U) 0-5 SEEN /hpf 0-5 [facility] Urine clarityOrdered By: Dr. Yoo on 09-22-2022 Clarity (U) Sl. Cloudy Clear [facility] Urine color determinationOrd ered By: Dr. Yoo on 09-22-2022 Color (U) Yellow Yellow [facility] Urine glucose detectionOrder ed By: Dr. Yoo on 09-22-2022 Glucose Ql (U) 1000 mg/dl Normal [facility] Urine leukocyte esterase det ection by dipstickOrdered By: Dr. Yoo on 09-22-2022 Leukocyte esterase Test strip Ql (U) 25 /ul Negative [facility] Urine pHOrdered By: Dr. Millicent mcgovern on 09-22-2022 pH (U) 6.0 [pH] 5.0 - 8.0 [facility] Urine sediment bacteria coun t by microscopy (number/high power field)Ordered By: Dr. Yoo on 09-22-2022 Bacteria LM.HPF (Urine sed) [#/Area] 1 /[HPF] None Seen [facility] Urine specific gravity measu rementOrdered By: Dr. Yoo on 09-22-2022 Specific gravity (U) [Rel density] 1.020 1.002-1.03 0 [facility] Urobilinogen Auto test strip Ql (U)Ordered By: Dr. Yoo on 09-22-2022 Urobilinogen Ql (U) Normal mg/dl Normal [facility] Vital signsOrdered By: Dr. Deyvi joseph on 09-22-2022 Oxygen saturation in Blood 82 % 50-70 [facility] pH measurementOrdered By: Dr Esdras Walters on 09-22-2022 pH (Unsp spec) 7.15 [pH] 7.32-7.42 [facility] Absolute lymphocyte countOrd ered By: Dr. Anton on 07-21-2022 Lymphocytes Auto (Unsp spec) [#/Vol] 1.89 10*3/uL 0.83-4.51 [facility] Basophil percentageOrdered B y: Dr. Anton on 07-21-2022 Basophils/100 WBC (Bld) 1.5 % 0-1 [facility] Bilirubin [Mass/Vol] 0.50 mg/dL 0.20-1.00 [facility] Comment on above: For patients on eltr ombopag therapy, use of Dimension [place] TBIL is not recommended. Chloride [Moles/Vol] 107 mmol/L 98-107 [facility] Eosinophils/100 WBC (Bld) 2.9 % 0-5 [facility] Glucose [Mass/Vol] 98 mg/dL 74-106 [facility] Neutrophils (Bld) [#/Vol] 2.3 10*3/uL 2.0-7.7 [facility] Neutrophils/100 WBC (Bld) 47.8 % 47-70 [facility] Potassium [Moles/Vol] 4.0 mmol/L 3.5-5.1 [facility] Protein [Mass/Vol] 6.9 g/dL 6.4-8.2 [facility] Sodium [Moles/Vol] 141 mmol/L 136-145 [facility] WBC (Bld) [#/Vol] 4.8 10*3/uL 4.4-11.0 [facility] Blood erythrocytes count (nu mber/volume)Ordered By: Dr. Anton on 07-21-2022 RBC (Bld) [#/Vol] 4.48 10*6/uL 4.2-5.4 [facility] Blood hemoglobin measurement (mass/volume)Ordered By: Dr. Anton on 07-21-2022 Hemoglobin (Bld) [Mass/Vol] 14.6 g/dL 12.0-15.0 [facility] Blood lymphocytes/100 leukoc ytesOrdered By: Dr. Anton on 07-21-2022 Lymphocytes/100 WBC (Bld) 39.3 % 19-41 [facility] Blood monocytes/100 leukocyt esOrdered By: Dr. Anton on 07-21-2022 Monocytes/100 WBC (Bld) 8.1 % 0-10 [facility] Blood platelet mean volumeOr dered By: Dr. Anton on 07-21-2022 Platelet mean volume (Bld) [Entitic vol] 9.6 fL 6.2-12.0 [facility] Determination of erythrocyte mean corpuscular volume (MCV)Ordered By: Dr. Anton on 07-21-2022 MCV (RBC) [Entitic vol] 96.4 fL 81-99 [facility] Hematocrit Auto (Bld) [Volum e fraction]Ordered By: Dr. Anton on 07-21-2022 Hematocrit (Bld) [Volume fraction] 43.2 % 37-47 [facility] Laboratory - Chemistry and C hemistry - challengeOrdered By: Dr. Anton on 07-21-2022 ALP [Catalytic activity/Vol] 72 U/L 45-117 [facility] ALT [Catalytic activity/Vol] 43 U/L 13-56 [facility] CO2 [Moles/Vol] 26.0 mmol/L 21.0-32.0 [facility] Globulin (S) [Mass/Vol] 3.2 g/dL 2.2-4.2 [facility] Urea nitrogen/Creatinine [Mass ratio] 14.8 mg/mg 10-20 [facility] Laboratory - Hematology and Cell countsOrdered By: Dr. Anton on 07-21-2022 Erythrocyte distribution width (RBC) [Entitic vol] 44.6 fL 35.1-43.9 [facility] Erythrocyte distribution width (RBC) [Ratio] 12.5 % 11.6-14.6 [facility] Immature granulocytes/100 WBC (Bld) 0.400 % 0.0-0.9 [facility] Comment on above: IG% - Immature Granu locytes (promyelocytes, myelocytes and metamyelocytes) > 1% indicates that a LEFT SHIFT is Present. MCH (RBC) [Entitic mass] 32.6 pg 27.0-32.0 [facility] Nucleated RBC/100 WBC (Bld) [Ratio] 0 % 0-5 [facility] MCHC Auto (RBC) [Mass/Vol]Or dered By: Dr. Anton on 07-21-2022 MCHC (RBC) [Mass/Vol] 33.8 g/dL 32-36 [facility] No Panel InformationOrdered By: Dr. Anton on 07-21-2022 Estimated GFR (MDRD) Amer 65 mL/min >60 [facility] Comment on above: GFR Calc Estimated GFR (MDRD) Non-Af Amer 54 mL/min >60 [facility] Comment on above: Non- GFR Calc Thyroid Stimulating Hormone (TSH) 1.64 uIU/mL 0.358-3.74 [facility] Urine Microalbumin/Creatinine Ratio 6.3 mg/g CRE <30 [facility] Platelets bldOrdered By: Dr. Anton on 07-21-2022 Platelets (Bld) [#/Vol] 199 10*3/uL 150-450 [facility] Serum or plasma albumin nidhi urement (mass/volume)Ordered By: Dr. Anton on 07-21-2022 Albumin [Mass/Vol] 3.7 g/dL 3.2-5.0 [facility] Serum or plasma albumin/glob ulin mass ratioOrdered By: Dr. Anton on 07-21-2022 Albumin/Globulin [Mass ratio] 1.2 {ratio} 0.9-2.4 [facility] Serum or plasma calcium nidhi urement (mass/volume)Ordered By: Dr. Anton on 07-21-2022 Calcium [Mass/Vol] 9.0 mg/dL 8.5-10.1 [facility] Serum or plasma creatinine m easurement (mass/volume)Ordered By: Dr. Anton on 07-21-2022 Creatinine [Mass/Vol] 1.08 mg/dL 0.55-1.02 [facility] Comment on above: The validity of the calculated GFR & GFRAA in patients over 70 years has not been determined. Clinical correlation is essential. Serum or plasma urea nitroge n measurement (mass/volume)Ordered By: Dr. Anton on 07-21-2022 Urea nitrogen [Mass/Vol] 16 mg/dL 7-18 [facility] Thin prep Papanicolaou smear with manual screeningOrdered By: Dr. Anton on 07-21-2022 Thin prep Papanicolaou smear with manual screening 28 U/L 15-37 [facility] Thin prep Papanicolaou smear with manual screening 8 5-15 [facility] Thin prep Papanicolaou smear with manual screening 7.2 mg/L NO RANGE EST. [facility] Urine creatinine measurement (mass/volume)Ordered By: Dr. Anton on 07-21-2022 Creatinine (U) [Mass/Vol] 114.00 mg/dL NO RANGE EST. [facility] Whole blood hemoglobin A1c/t otal hemoglobin ratio (mass fraction)Ordered By: Dr. Anton on 07-21-2022 HbA1c (Bld) [Mass fraction] 6.7 % 3.8-5.6 [facility] Comment on above: Normal < 5.7 % Predi abetic 5.7 - 6.4 % Diabetic >or= 6.5 % Please note range changes. No Panel Informationon 06-25 Miscellaneous Test See comment [facility] Work Phone: Comment on above: TEST RESULT LIMITSNu Swab VG+, Jigna 6spBacterial Vaginosis, NAAAtopobium vaginae Low - 0 ScoreBVAB 2 Low - 0 ScoreMegasphaera 1 Low - 0 ScoreTotal Score, add three scores Calculate total score by adding the 3 individual bacterialvaginosis (BV) marker scores together. Total score isinterpreted as follows:Total score 0-1: Indicates the absence of BV.Total score 2: Indeterminate for BV. Additional clinical data should be evaluated to establish a diagnosis.Total score 3-6: Indicates the presence of BV.This test was developed and its performance characteristicsdetermined by [employer]. It has not been cleared or approvedby the Food and Drug Administration.Jigna albicans, HEIKE A, Negative NegativeCandida glabrata, HEIKE A, Negative NegativeC parapsilosis/tropicalis A, Negative NegativeThis assay does not differentiate C. tropicalis and C. parapsilosis.Jigna lusitaniae, HEIKE A, Negative NegativeCandida krusei, HEIKE A, Negative NegativeTrich vag by HEIKE Negative NegativeChlamydia trachomatis, HEIKE Negative NegativeNeisseria gonorrhoeae, HEIKE Negative NegativeCommentsA: This test was developed and its performance characteristics determined by [employer]. It has not been cleared or approved by the Food and DrugAdministration. TESTING PERFORMED AT [facility]. ORIGINAL REPORT ON FILE IN LAB CONTAINS ADDITIONAL TEST SITE INFORMATION. No Panel Informationon 05-23 Miscellaneous Test See comment [facility] Work Phone: Comment on above: TEST RESULT LIMITSNu Swab Vaginitis Plus (VG+)Bacterial Vaginosis, NAAAtopobium vaginae Moderate - 1 ScoreBVAB 2 Low - 0 ScoreMegasphaera 1 Low - 0 ScoreTotal Score, add three scores Calculate total score by adding the 3 individual bacterialvaginosis (BV) marker scores together. Total score isinterpreted as follows:Total score 0-1: Indicates the absence of BV.Total score 2: Indeterminate for BV. Additional clinical data should be evaluated to establish a diagnosis.Total score 3-6: Indicates the presence of BV.This test was developed and its performance characteristicsdetermined by [employer]. It has not been cleared or approvedby the Food and Drug Administration.Jigna albicans, HEIKE A, Negative NegativeCandida glabrata, HEIKE A, Negative NegativeTrich vag by HEIKE Negative NegativeChlamydia trachomatis, HEIKE Negative NegativeNeisseria gonorrhoeae, HEIKE Negative NegativeCommentsA: This test was developed and its performance characteristics determined by [employer]. It has not been cleared or approved by the Food and DrugAdministration. TESTING PERFORMED AT [facility]. ORIGINAL REPORT ON FILE IN LAB CONTAINS ADDITIONAL TEST SITE INFORMATION. MG Breast Tomosynthesis Scr Blon 06-21-2022 MG Breast Tomosynthesis Scr Bl Patient Name: JOI LONG Mammography ACCESSION EXAM DATE/TIME PROCEDURE ORDERING PROVIDER [id number] 03/04/2022 13:52 EDT MG Breast Tomosynthesis MD PAUL, LEE BI Ashlyn [place] CPT code 44775 [id number] Reason For Exam (MG Breast Tomosynthesis BI Scr) screening Report TIME SINCE LAST MAMMOGRAM: Last mammogram was performed 1 year ago. REASON FOR EXAM: screening, asymptomatic. PROCEDURE: MG BREAST TOMOSYNTHESIS BL SCR: MARCH 04, 2022 - 2D/3D Procedure 3D views: Bilateral MLO and CC view(s) were taken. 2D views: Bilateral MLO and CC view(s) were taken. Prior study comparison: February 28, 2021, bilateral MG breast tomosynthesis bl scr performed at [facility]. February 27, 2020, bilateral MG breast tomosynthesis bl performed at [facility]. December 08, 2018, bilateral screening 3D/tomosynthesis performed at [facility]. TISSUE DENSITY: BIRADS B - There are scattered fibroglandular densities. . FINDINGS: Postsurgical changes are present in the upper outer quadrant of the left breast at the posterior depth. No suspicious masses, architectural distortions or suspiciously clustered microcalcifications are identified. There is no evidence of skin thickening or nipple retraction. There are no significant changes when compared with prior studies. No mammographic evidence of malignancy. Markings on images: BB's = Nipples; skin lesions Open [place] = Palpable Line = Scar 2D digital mammography and tomosynthesis imaging were performed and reviewed with CAD. ASSESSMENT: Category 1 Negative RECOMMENDATION: Routine screening mammogram of both breasts in 1 year. Mammography Report . Report Dictated on Final Signed Date and Time: 03/04/2022 2:14 pm Signed by: MD GOLDSTEIN LAUREN B [facility] No Panel Informationon 02-04 Miscellaneous Test See comment [facility] Work Phone: Comment on above: TEST RESULT LIMITSNu Swab Vaginitis Plus (VG+)Bacterial Vaginosis, NAAAtopobium vaginae High - 2 Abnormal ScoreBVAB 2 Low - 0 ScoreMegasphaera 1 High - 2 Abnormal ScoreTotal Score, add three scores Calculate total score by adding the 3 individual bacterialvaginosis (BV) marker scores together. Total score isinterpreted as follows:Total score 0-1: Indicates the absence of BV.Total score 2: Indeterminate for BV. Additional clinical data should be evaluated to establish a diagnosis.Total score 3-6: Indicates the presence of BV.This test was developed and its performance characteristicsdetermined by [employer]. It has not been cleared or approvedby the Food and Drug Administration.Jigna albicans, HEIKE A, Negative NegativeCandida glabrata, HEIKE A, Negative NegativeTrich vag by HEIKE Negative NegativeChlamydia trachomatis, HEIKE Negative NegativeNeisseria gonorrhoeae, HEIKE Negative Negative ___ TESTING PERFORMED AT [facility]. ORIGINAL REPORT ON FILE IN LAB CONTAINS ADDITIONAL TEST SITE INFORMATION. 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 She recovered from her infection was treated with adjuvant radiation therapy that was completed on April 14, 2019. She tolerated treatment well, though she did have some post radiation therapy chest pain, off and on for about a year before this residual pain subsided. He did note that the pain initially after aspiration for infection was significant. She is here for regular schedule I year follow-up. INTERVAL SINCE RADIATION: 2 1/2 years 03/02/19 - 04/07/19: 50.00/50.00 Gy to the Left breast in 25 fractions of 2.00 Gy using the 3D technique with 6 MV over 36 days. 04/08/19 - 04/14/19: 10.00/10.00 Gy to the Lt lump cavity in 5 fractions of 2.00 Gy using the 3D/Daily IGRT technique with 6 T 10 MV over 6 days. INTERVAL HISTORY: PAST MEDICAL HISTORY: 1. Type II diabetes mellitus 2. Depression, has been treated by our psychologist and neurologist here in [facility]. 3. Adjuvant radiation therapy after partial mastectomy, completed radiation 04/14/2019 4. Left breast conservation surgery PAST SURGICAL HISTORY: Per left breast history as stated above in history of present illness. ALLERGIES: metformin; morphine; lisinopril-hydrochlorothia zide; steroids MEDICATIONS: 1. Advair Diskus - 1 Puff(s) Inhalation Twice a Day 2. Amaryl - 1 Tablet Oral Daily 3. Caltrate 600-D Plus Minerals - 1 Tablet Oral Daily 4. Cozaar - 1 Tablet Oral Daily 5. doxepin - 1 Capsule Oral Daily 6. duloxetine - 1 Capsule Oral Daily 7. Invokana - 1 Tablet Oral Daily 8. ipratropium bromide - Inhalation Twice a Day 9. Lantus - 14 Units SQ Daily 10. Nasacort - Nasal 11. Normodyne - 1.5 Tablet Oral Twice a Day 12. tamoxifen - 1 Tablet Oral Daily Medications Last Reconciled by Meagan Irvin RN on 10/28/2021 SUMMARY OF SIGNIFICIANT X-RAY/LABORATORY FINDINGS: Her last annual mammogram was on 02/28/2021, compared to her mammogram from the following year on February 27, 2020 and December 08, 2018 as well as her study of November 30, 2017, no new suspicious masses, architectural distortions or suspiciously clustered microcalcifications are identified. There are postsurgical changes due to scar marker in the left breast. There are no significant changes when compared to prior studies. Category 2-benign. Recommendation screening mammogram of both breasts in 1 year. REVIEW OF SYSTEMS: Pain: 0. - No pain Constitutional: Fair appetite. Fair to good energy level; varies with the level of her depression. No fever, chills, sweats, or headaches. Vision: Stable. Ears Nose Throat and Mouth: No hearing loss. No mouth, throat, or swallowing issues. Respiratory: No shortness of breath at rest. No dyspnea on exertion. No cough. No paroxysmal nocturnal dyspnea or orthopnea. Not on oxygen. Cardiovascular: No chest pain. No heart racing. No palpitations. Gastrointestinal: No nausea, vomiting, diarrhea, or constipation. No reflux. Musculoskeletal: No arthritic symptoms. No swelling. Good range of motion. Skin: No rashes, open areas, or pruritus. Neuro: Has had in the past severe headaches to the point that if affects her vision; see a neurologist for this; etiology of the headaches not known. No numbness, tingling, or weakness. Psychiatric: Severe depression which she acknowledges but is managing better. Hematology/Lymphatic: Blood counts okay. No anemia. No blood transfusion. Allergy/Immunologic: No connective tissue disease, such as rheumatoid arthritis, scleroderma, or lupus. Endocrine: No thyroid or diabetic issues. ECOG Performance Status: 0 PHYSICAL EXAMINATION: VITALS: Temperature 97.3 F (10/28/21), Pulse 83 (10/28/21), Respirations 18 (10/28/21), Blood Pressure 148/81 (10/28/21) Weight 182 pounds 10/28/21 GENERAL: Awake, alert, oriented, no anxiety, dressed appropriately, appears of stated age. Ambulates without assistance. Speech pattern fluent. HEAD AND NECK: Wears COVID-19 mask. Nonicteric sclera LUNGS: Clear to auscultation. No rales or rhonchi. HEART: Regular rate and rhythm, S1-S2 noted no murmur. NECK: Symmetric. No thyroid nodule. NODES: No neck, supraclavicular, infraclavicular, or axillary adenopathy. BREAST: Symmetric with tenderness of the left breast still present the size with mild tenderness and heaviness compared to her right breast. Left breast has no abnormalit (more content not included)... Normal [facility] ALTHEA SELIN DIGITAL SCREEN BILA TERALOrdered By: Alvaro Hyman on 02-28-2021 Patient Name: JOI LONG Mammography ACCESSION EXAM DATE/TIME PROCEDURE ORDERING PROVIDER [id number] 02/28/2021 12:12 EDT MG Breast Tomosynthesis ALVARO HYMAN BI Scr CPT code [id number] Reason For Exam (MG Breast Tomosynthesis BI Scr) high riskZ12.31 Report TIME SINCE LAST MAMMOGRAM: Last mammogram was performed 1 year ago. REASON FOR EXAM: screening, asymptomatic. PROCEDURE: MG BREAST TOMOSYNTHESIS BL SCR: FEBRUARY 28, 2021 - 2D/3D Procedure 3D Bilateral CC and MLO view(s) were taken. 2D Bilateral CC and MLO view(s) were taken. Prior study comparison: February 27, 2020, bilateral MG breast tomosynthesis bl performed at [facility]. December 08, 2018, bilateral screening 3D/tomosynthesis performed at [facility]. November 30, 2017, bilateral screening mammogram performed at [facility]. TISSUE DENSITY: BIRADS B - There are scattered fibroglandular densities. . FINDINGS: No new suspicious masses, architectural distortions or suspiciously clustered microcalcifications are identified. There are post surgical changes deep to a scar marker in the left breast. There are no significant changes when compared with prior studies. Markings on images: BB's = Nipples; skin lesions Open [place] = Palpable Line = Scar 2D digital mammography and tomosynthesis imaging were performed and reviewed with CAD. ASSESSMENT: Category 2 Benign RECOMMENDATION: Routine screening mammogram of both breasts in 1 year. . Report Dictated on --- Final --- Signed Date and Time: 02/28/2021 1:20 pm Signed by: MD JOSUE, [facility] Work Phone: [place], [place] Incoming Radiology Results From [facility] - 02/28/2021 1:52 PM EDT Patient Name: JOI LONG Mammography ACCESSION EXAM DATE/TIME PROCEDURE ORDERING PROVIDER [id number] 02/28/2021 12:12 EDT MG Breast Tomosynthesis ALVARO HYMAN BI Scr CPT code 84778 95898 Reason For Exam (MG Breast Tomosynthesis BI Scr) high riskZ12.31 Report TIME SINCE LAST MAMMOGRAM: Last mammogram was performed 1 year ago. REASON FOR EXAM: screening, asymptomatic. PROCEDURE: MG BREAST TOMOSYNTHESIS BL SCR: FEBRUARY 28, 2021 - 2D/3D Procedure 3D Bilateral CC and MLO view(s) were taken. 2D Bilateral CC and MLO view(s) were taken. Prior study comparison: February 27, 2020, bilateral MG breast tomosynthesis bl performed at [facility]. December 08, 2018, bilateral screening 3D/tomosynthesis performed at [facility]. November 30, 2017, bilateral screening mammogram performed at [facility]. TISSUE DENSITY: BIRADS B - There are scattered fibroglandular densities. . FINDINGS: No new suspicious masses, architectural distortions or suspiciously clustered microcalcifications are identified. There are post surgical changes deep to a scar marker in the left breast. There are no significant changes when compared with prior studies. Markings on images: BB's = Nipples; skin lesions Open [place] = Palpable Line = Scar 2D digital mammography and tomosynthesis imaging were performed and reviewed with CAD. ASSESSMENT: Category 2 Benign RECOMMENDATION: Routine screening mammogram of both breasts in 1 year. . Report Dictated on --- Final --- Signed Date and Time: 02/28/2021 1:20 pm Signed by: MD JOSUE [facility] Work Phone: [facility] Work Phone: XR Chest PA and Lateralon IMPRESSION: No persistent or developing radiographic abnormality. Professor Of Environmental Studies: PSCB Transcribe Date/Time: Feb 14 2021 10:56A Dictated by : BUSHRA DUKES MD This examination was interpreted and the report reviewed and electronically signed by: BUSHRA DUKES MD on Feb 14 2021 10:57AM [facility] DIVISION OF RADIOLOGY * * *Final Report* * * DATE OF EXAM: Feb 14 2021 10:38AM WOX [id number] - XR CHEST 2V FRONTAL/LAT / PROCEDURE REASON: History of COVID-19 * * * * Physician Interpretation * * * * EXAMINATION: CHEST RADIOGRAPH (2 VIEW FRONTAL & LATERAL) CLINICAL HISTORY: History of COVID-19 MQ: XC2_6 EXAM DATE/TIME: 02/14/2021 10:38 AM COMPARISON: 01/28/2021 RESULT: Lines, tubes, and devices: None. Lungs and pleura: No consolidation. No lung mass. No pleural effusion. No pneumothorax. Previous vague infrahilar airspace opacities have resolved Cardiomediastinal silhouette: Normal cardiomediastinal silhouette. Bones and soft tissues: Unremarkable. DIVISION [facility]OLOGY [facility] * * *Final Report* * * DATE OF EXAM: Feb 14 2021 10:38AM WOX [id number] - XR CHEST 2V FRONTAL/LAT / PROCEDURE REASON: History of COVID-19 * * * * Physician Interpretation * * * * EXAMINATION: CHEST RADIOGRAPH (2 VIEW FRONTAL & LATERAL) CLINICAL HISTORY: History of COVID-19 MQ: XC2_6 EXAM DATE/TIME: 02/14/2021 10:38 AM COMPARISON: 01/28/2021 RESULT: Lines, tubes, and devices: None. Lungs and pleura: No consolidation. No lung mass. No pleural effusion. No pneumothorax. Previous vague infrahilar airspace opacities have resolved Cardiomediastinal silhouette: Normal cardiomediastinal silhouette. Bones and soft tissues: Unremarkable. IMPRESSION IMPRESSION: No persistent or developing radiographic abnormality. Professor Of Environmental Studies: PSCB Transcribe Date/Time: Feb 14 2021 10:56A Dictated by : BUSHRA DUKES MD This examination was interpreted and the report reviewed and electronically signed by: BUSHRA DUKES MD on Feb 14 2021 10:57AM [facility] Radiology Study observation (narrative) Derrick ortiz [facility] XR Chest PA and LateralOrder ed By: [facility] Provider on 02-14-2021 [facility] XR CHEST 2V FRONTAL/LATon XR CHEST 2V FRONTAL/LAT * * *Final Repor t* * * DATE OF EXAM: Jan 28 2021 3:50PM CAROLE 5291 - XR CHEST 2V FRONTAL/LAT / PROCEDURE REASON: multiple diagnoses * * * * Physician Interpretation * * * * EXAMINATION: CHEST RADIOGRAPH (2 VIEW FRONTAL and LATERAL) CLINICAL HISTORY: History of COVID-19. SOB (shortness of breath) MQ: XC2_6 EXAM DATE/TIME: 01/28/2021 3:50 PM COMPARISON: No relevant prior studies available. RESULT: Lines, tubes, and devices: None. Lungs and pleura: Mild chronic interstitial lung changes at both bases present. Vague opacity at the right lower lung slightly laterally may represent a summation shadow of rib end and bronchovascular markings and overlying soft tissues. There is no focal consolidation or acute pleural process/fluid. There is no vascular redistribution to suggest pulmonary edema. Cardiomediastinal silhouette: The cardiac, mediastinal and hilar shadows are within normal limits. Other: The bony structures are intact IMPRESSION: Vague airspace opacity right lower lung laterally may represent a summation shadow. Subtle infiltrate or nodule mild excluded. Suggest follow-up in several weeks. Professor Of Environmental Studies: DIANN Transcribe Date/Time: Jan 28 2021 4:07P Dictated by : DEVAUGHN PEREZ MD This examination was interpreted and the report reviewed and electronically signed by: DEVAUGHN PEREZ MD on Jan 28 2021 4:10PM EST [id number] [facility] SELIN DIGITAL DIAGNOSTIC BILATERALon 02-27-2020 Patient Name: JOI LONG ---Mammography--- Exam Date/Time 02/27/2020 14:02:57 EDT Exam MG Breast Tomosynthesis BI Ordering Physician ALVARO HYMAN Accession Number [id number] CPT4 Codes 53195 (MG Breast Tomosynthesis BI), 76041 (MG MAMMO 2D DIAG BILAT) Reason For Exam abnormal mammogram Report TIME SINCE LAST MAMMOGRAM: Last mammogram was performed 1 year and 3 months ago. REASON FOR EXAM: follow-up at short interval from prior study. PROCEDURE: MG BREAST TOMOSYNTHESIS BL: FEBRUARY 27, 2020 - 2D/3D Procedure 3D Bilateral CC and MLO view(s) were taken. 2D Bilateral CC and MLO view(s) were taken. Prior study comparison: December 08, 2018, bilateral screening 3D/tomosynthesis performed at [facility]. November 30, 2017, bilateral screening mammogram performed at [facility]. November 30, 2017, bilateral screening mammogram performed at [facility]. TISSUE DENSITY: BIRADS B - There are scattered fibroglandular densities. . FINDINGS: Patient presents for her first mammogram after lumpectomy and radiation. Lumpectomy and radiation treatment changes are noted in the left breast. There are no new suspicious masses, calcifications, or areas distortion noted. IMPRESSION: Expected changes in the left breast. No new mammographic evidence of malignancy. Routine screening is recommended in one year. Markings on images: BB's = Nipples; skin lesions Open [place] = Palpable Line = Scar 2D digital mammography and tomosynthesis imaging were performed and reviewed with CAD. ASSESSMENT: Category 2 Benign RECOMMENDATION: Routine screening mammogram of both breasts in 1 year. . Report Dictated on --- Final --- Signed Date and Time: 02/27/2020 3:12 pm Signed by: MD BING, [place], [place] Giovanny, [facility] Incoming Radiology Results From [facility] - 02/27/2020 5:22 PM EDT Patient Name: JOI LONG ---Mammography--- Exam Date/Time 02/27/2020 14:02:57 EDT Exam MG Breast Tomosynthesis BI Ordering Physician ALVARO HYMAN Accession Number [id number] CPT4 Codes 67872 (MG Breast Tomosynthesis BI), 93220 (MG MAMMO 2D DIAG BILAT) Reason For Exam abnormal mammogram Report TIME SINCE LAST MAMMOGRAM: Last mammogram was performed 1 year and 3 months ago. REASON FOR EXAM: follow-up at short interval from prior study. PROCEDURE: MG BREAST TOMOSYNTHESIS BL: FEBRUARY 27, 2020 - 2D/3D Procedure 3D Bilateral CC and MLO view(s) were taken. 2D Bilateral CC and MLO view(s) were taken. Prior study comparison: December 08, 2018, bilateral screening 3D/tomosynthesis performed at [facility]. November 30, 2017, bilateral screening mammogram performed at [facility]. November 30, 2017, bilateral screening mammogram performed at [facility]. TISSUE DENSITY: BIRADS B - There are scattered fibroglandular densities. . FINDINGS: Patient presents for her first mammogram after lumpectomy and radiation. Lumpectomy and radiation treatment changes are noted in the left breast. There are no new suspicious masses, calcifications, or areas distortion noted. IMPRESSION: Expected changes in the left breast. No new mammographic evidence of malignancy. Routine screening is recommended in one year. Markings on images: BB's = Nipples; skin lesions Open [place] = Palpable Line = Scar 2D digital mammography and tomosynthesis imaging were performed and reviewed with CAD. ASSESSMENT: Category 2 Benign RECOMMENDATION: Routine screening mammogram of both breasts in 1 year. . Report Dictated on --- Final --- Signed Date and Time: 02/27/2020 3:12 pm Signed by: MD BING, [place], [place] MG Breast Tomosynthesis Diag nostic BIon 02-27-2020 MG Breast Tomosynthesis Diagnostic BI Patient Name: JOI LONG Mammography Exam Date/Time 02/27/2020 14:02:57 EDT Exam MG Breast Tomosynthesis BI Ordering Physician ALVARO HYMAN Accession Number [id number] CPT4 Codes 72077 (MG Breast Tomosynthesis BI), 27361 (MG MAMMO 2D DIAG BILAT) Reason For Exam abnormal mammogram Report TIME SINCE LAST MAMMOGRAM: Last mammogram was performed 1 year and 3 months ago. REASON FOR EXAM: follow-up at short interval from prior study. PROCEDURE: MG BREAST TOMOSYNTHESIS BL: FEBRUARY 27, 2020 - 2D/3D Procedure 3D Bilateral CC and MLO view(s) were taken. 2D Bilateral CC and MLO view(s) were taken. Prior study comparison: December 08, 2018, bilateral screening 3D/tomosynthesis performed at [facility]. November 30, 2017, bilateral screening mammogram performed at [facility]. November 30, 2017, bilateral screening mammogram performed at [facility]. TISSUE DENSITY: BIRADS B - There are scattered fibroglandular densities. . FINDINGS: Patient presents for her first mammogram after lumpectomy and radiation. Lumpectomy and radiation treatment changes are noted in the left breast. There are no new suspicious masses, calcifications, or areas distortion noted. IMPRESSION: Expected changes in the left breast. No new mammographic evidence of malignancy. Routine screening is recommended in one year. Markings on images: BB's = Nipples; skin lesions Open [place] = Palpable Line = Scar 2D digital mammography and tomosynthesis imaging were performed and reviewed with CAD. ASSESSMENT: Category 2 Benign RECOMMENDATION: Routine screening mammogram of both breasts in 1 year. . Report Dictated on Final Signed Date and Time: 02/27/2020 3:12 pm Signed by: MD SMART TOM A [facility] MRI BRAIN W WO CONTRASTon Patient Name: JOI LONG ---MRI--- Exam Date/Time 07/19/2019 10:55:27 EST Exam MRI Brain w/ + w/o Contrast Ordering Physician MD AMARI, [facility] Accession Number [id number] CPT4 Codes 90134 () Reason For Exam mets Report MRI BRAIN WITHOUT CONTRAST CLINICAL: Left breast cancer. COMPARISON: None provided Multiplanar, multisequence MR imaging of the brain was performed. No postcontrast enhanced imaging was performed due to lack of intravenous access. FINDINGS: The diffusion-weighted imaging is without evidence of acute ischemic injury. There is no hydrocephalus. The basilar cisterns are patent. No abnormal brain parenchymal edema is identified. There is mild periventricular leukomalacia and there are few scattered, small foci of subcortical leukomalacia within both cerebral hemispheres, mild in severity. The gradient echo imaging is without artifact to suggest underlying blood products. The orbits appear symmetric. No abnormal mass lesion is seen within the sella. The internal auditory canals are normal in caliber. The major intracranial internal carotid and vertebrobasilar T2 signal flow voids appear grossly patent. Mild scattered mucosal thickening of the paranasal sinuses without abnormal air fluid levels. IMPRESSION: No midline shift, mass effect or abnormal brain parenchymal edema. Please note that the assessment for any possible underlying small metastatic lesions is limited due to lack of intravenous contrast. Mild leukomalacia changes. While nonspecific, these findings can be seen in chronic small vessel disease, long-standing hypertension, and migraines, amongst other etiologies. Report Dictated on --- Final --- Dictating Physician: MD CALDERÓN BRIAN Signed Date and Time: 07/19/2019 11:19 am Signed by: MD CALDERÓN BRIAN Transcribed Date and Time: 07/19/2019 11:20 [facility]- [place], [place] [facility], [facility] Incoming Radiology Results From [facility] - 07/19/2019 11:20 AM EST Patient Name: JOI LONG ---MRI--- Exam Date/Time 07/19/2019 10:55:27 EST Exam MRI Brain w/ + w/o Contrast Ordering Physician MD AMARI, LIAN Accession Number [id number] CPT4 Codes 75250 () Reason For Exam mets Report MRI BRAIN WITHOUT CONTRAST CLINICAL: Left breast cancer. COMPARISON: None provided Multiplanar, multisequence MR imaging of the brain was performed. No postcontrast enhanced imaging was performed due to lack of intravenous access. FINDINGS: The diffusion-weighted imaging is without evidence of acute ischemic injury. There is no hydrocephalus. The basilar cisterns are patent. No abnormal brain parenchymal edema is identified. There is mild periventricular leukomalacia and there are few scattered, small foci of subcortical leukomalacia within both cerebral hemispheres, mild in severity. The gradient echo imaging is without artifact to suggest underlying blood products. The orbits appear symmetric. No abnormal mass lesion is seen within the sella. The internal auditory canals are normal in caliber. The major intracranial internal carotid and vertebrobasilar T2 signal flow voids appear grossly patent. Mild scattered mucosal thickening of the paranasal sinuses without abnormal air fluid levels. IMPRESSION: No midline shift, mass effect or abnormal brain parenchymal edema. Please note that the assessment for any possible underlying small metastatic lesions is limited due to lack of intravenous contrast. Mild leukomalacia changes. While nonspecific, these findings can be seen in chronic small vessel disease, long-standing hypertension, and migraines, amongst other etiologies. Report Dictated on --- Final --- Dictating Physician: MD CALDERÓN BRIAN Signed Date and Time: 07/19/2019 11:19 am Signed by: MD CALDERÓN BRIAN Transcribed Date and Time: 07/19/2019 11:20 [facility]- [place], [place] DEXA Bone Density Axial Skel kemi 07-05-2019 Patient Name: JOI LONG ---Bone Density--- Exam Date/Time 07/05/2019 09:48:06 EDT Exam OT Bone Density DEXA Axial Skeleton Ordering Physician MD PAUL, LEE [place] Accession Number [id number] CPT4 Codes 65107 () Reason For Exam starting aromatase inhibitor Report DXA BONE DENSITOMETRY: CLINICAL INDICATION: Starting aromatase inhibitor. Screening for osteoporosis. COMPARISON: None TECHNIQUE: Quantitative bone mineral densitometry of the hip and lumbar spine was performed with a dual energy x-ray observed absorptiometry device - FanbaseigSputnikBot at some institutions, HOLOGIC at others. Regions of interest were obtained through the proximal femur and compared to the normal value of young adult women. Regions of interest were also obtained through the lumbar vertebrae with an average value determined and compared to the normal value of young adult women. The difference between your measured bone density and the bone density of a normal young woman is expressed in standard deviations as the T score. Similarly, your measured bone density is also compared to age and race matched values, and expressed in standard deviations as the Z score. According to World Health Organization criteria: T-score of -1.0 or higher is normal. T-score between -1.1 to < -2.5 is low bone density or osteopenia. T-score of -2.5 or lower is abnormally low, compatible with osteoporosis. T-score of -2.5 or less plus fragility fracture indicates severe osteoporosis. FINDINGS: Femoral neck LEFT Density: 0.917 g/cm2 T-score: 0.6 Z-score: 2.0 Total Hip LEFT Density: 1.144 g/cm2 T-score: 1.7 Z-score: 2.8 Comparison from prior examination: N/A Spine: L1-L2; note made of spinal fusion surgery and removal. Using only L1-L2. Density 1.215 g/cm2 T-score: 2.1 Z-score: 3.7 Comparison from prior examination: N/A IMPRESSION: 1. Negative. FRACTURE RISK: The estimated 10 year risk for a hip fracture is 0.3% and for a major osteoporosis-related fracture is 16%. (FRAX web version 3.11). RECOMMENDATIONS: General recommendations for prevention of bone loss include: 7622-1181 mg calcium intake per day for adults >50yrs, and no history of renal calculi 800-1000 IU of vitamin D3 per day for adults >50yrs, and no history of renal calculi Weight bearing exercise Discontinue smoking Avoid excessive use of caffeine, soft drinks, and alcoholic beverages In addition, balance training and fall prevention programs can help reduce the risk of fractures Pharmacologic treatment recommendations: Initiate pharmacologic treatment in patients with hip or vertebral fracture. In those with T scores spine by DXA In postmenopausal women and men age 50 or older with low bone mass (T score between -1.0 and -2.5 [osteopenia]) at the femoral neck, total hip, or lumbar spine by DXA have a 10 year hip fracture probability >/= 3% or a 10 year major osteoporosis-related fracture probability >/= 20% based on the [place]-adapted WHO fracture risk model (FRAX). Current FDA-approved pharmacologic options for osteoporosis treatment include bisphosphonates (Fosamax), ibandronate (Boniva), risedronate (Actonel), zoledronic acid (Reclast), estrogens and other hormonal therapies (Evista), parathyroid hormone (Forteo), and denosumab (Prolia). Initiation of pharmacologic therapy should happen only after thorough medical evaluation, discussion of risks and benefits, and with regular monitoring of the therapeutic regimen. Follow-up recommendations: Patients with osteoporosis or or at high risk for fracture should have follow-up bone density tests. For Medicare patients, routine testing is allowed every 2 years. Patients who have low bone mass (T score -2.0 to -2.49), who are currently on treatment for low bone mass, or having risk factors for accelerated bone loss (glucocorticoids, aromatase inhibitors, etc.), consider repeat DXA in 1-2 years. Patients with osteopenia and no risk factors may consider follow-up every 3-5 years. References: National Osteoporosis Foundation. Clinician's Guide to Prevention and Treatment of Osteoporosis. Osteoporosis International. [place], 2014. DXA Scan Screening, Reporting (FRAX Score) and Follow-up. [employer] of Knowledge Evidence - based Summaries. [facility] 2017. Report Dictated on Workstation: [id number] --- Final --- Dictating Physician: MD CASTANON JOHN Signed Date and Time: 07/05/2019 10:49 am Signed by: MD CASTANON JOHN Transcribed Date and Time: 07/05/2019 10:50 [facility]- [place], [place] [facility], [facility] Incoming Radiology Results From [facility] - 07/05/2019 10:50 AM EDT Patient Name: JOI LONG ---Bone Density--- Exam Date/Time 07/05/2019 09:48:06 EDT Exam OT Bone Density DEXA Axial Skeleton Ordering Physician MD PAUL, LEE [place] Accession Number [id number] CPT4 Codes 44206 () Reason For Exam starting aromatase inhibitor Report DXA BONE DENSITOMETRY: CLINICAL INDICATION: Starting aromatase inhibitor. Screening for osteoporosis. COMPARISON: None TECHNIQUE: Quantitative bone mineral densitometry of the hip and lumbar spine was performed with a dual energy x-ray observed absorptiometry device - FanbaseigSputnikBot at some institutions, HOLOGIC at others. Regions of interest were obtained through the proximal femur and compared to the normal value of young adult women. Regions of interest were also obtained through the lumbar vertebrae with an average value determined and compared to the normal value of young adult women. The difference between your measured bone density and the bone density of a normal young woman is expressed in standard deviations as the T score. Similarly, your measured bone density is also compared to age and race matched values, and expressed in standard deviations as the Z score. According to World Health Organization criteria: T-score of -1.0 or higher is normal. T-score between -1.1 to < -2.5 is low bone density or osteopenia. T-score of -2.5 or lower is abnormally low, compatible with osteoporosis. T-score of -2.5 or less plus fragility fracture indicates severe osteoporosis. FINDINGS: Femoral neck LEFT Density: 0.917 g/cm2 T-score: 0.6 Z-score: 2.0 Total Hip LEFT Density: 1.144 g/cm2 T-score: 1.7 Z-score: 2.8 Comparison from prior examination: N/A Spine: L1-L2; note made of spinal fusion surgery and removal. Using only L1-L2. Density 1.215 g/cm2 T-score: 2.1 Z-score: 3.7 Comparison from prior examination: N/A IMPRESSION: 1. Negative. FRACTURE RISK: The estimated 10 year risk for a hip fracture is 0.3% and for a major osteoporosis-related fracture is 16%. (FRAX web version 3.11). RECOMMENDATIONS: General recommendations for prevention of bone loss include: 2945-7857 mg calcium intake per day for adults >50yrs, and no history of renal calculi 800-1000 IU of vitamin D3 per day for adults >50yrs, and no history of renal calculi Weight bearing exercise Discontinue smoking Avoid excessive use of caffeine, soft drinks, and alcoholic beverages In addition, balance training and fall prevention programs can help reduce the risk of fractures Pharmacologic treatment recommendations: Initiate pharmacologic treatment in patients with hip or vertebral fracture. In those with T scores spine by DXA In postmenopausal women and men age 50 or older with low bone mass (T score between -1.0 and -2.5 [osteopenia]) at the femoral neck, total hip, or lumbar spine by DXA have a 10 year hip fracture probability >/= 3% or a 10 year major osteoporosis-related fracture probability >/= 20% based on the [place]-adapted WHO fracture risk model (FRAX). Current FDA-approved pharmacologic options for osteoporosis treatment include bisphosphonates (Fosamax), ibandronate (Boniva), risedronate (Actonel), zoledronic acid (Reclast), estrogens and other hormonal therapies (Evista), parathyroid hormone (Forteo), and denosumab (Prolia). Initiation of pharmacologic therapy should happen only after thorough medical evaluation, discussion of risks and benefits, and with regular monitoring of the therapeutic regimen. Follow-up recommendations: Patients with osteoporosis or or at high risk for fracture should have follow-up bone density tests. For Medicare patients, routine testing is allowed every 2 years. Patients who have low bone mass (T score -2.0 to -2.49), who are currently on treatment for low bone mass, or having risk factors for accelerated bone loss (glucocorticoids, aromatase inhibitors, etc.), consider repeat DXA in 1-2 years. Patients with osteopenia and no risk factors may consider follow-up every 3-5 years. References: National Osteoporosis Foundation. Clinician's Guide to Prevention and Treatment of Osteoporosis. Osteoporosis International. [place], 2014. DXA Scan Screening, Reporting (FRAX Score) and Follow-up. [employer] Knowledge Evidence - based Summaries. [facility] 2017. Report Dictated on Workstation: [id number] --- Final --- Dictating Physician: MD CASTANON JOHN Signed Date and Time: 07/05/2019 10:49 am Signed by: MD CASTANON JOHN Transcribed Date and Time: 07/05/2019 10:50 [place], [place] MG BX Breast 1st Lesion Strt ctc LTon 12-17-2018 MG BX Breast 1st Lesion Strtctc LT Patient Name: JOI LONG Mammography Exam Date/Time 12/17/2018 10:51:00 EDT Exam MG BX Breast 1st Lesion Strtctc LT Ordering Physician ALVARO HYMAN Accession Number [id number] CPT4 Codes 36942 () Reason For Exam lt calcs Report PROCEDURE: MG BX BREAST 1ST LESION STRTCTC LT: LEFT BREAST - DECEMBER 17, 2018 - REASON FOR EXAMINATION: Collection of microcalcifications in the left upper outer quadrant on outside examination CONSENT: The patient presents for stereotactic localization and biopsy for the left breast. Prior to the procedure red rules were performed which included patient name, date of , and procedure type. Risks, benefits and alternatives were explained to the patient and informed consent was obtained. The prior imaging dated 12/08/2018 was reviewed. PROCEDURE: I washed my hands and wore sterile gloves. The patient was sitting upright and calcifications were localized from a lateral approach. The patient was prepped in the usual sterile fashion. 30 mL of 1% Lidocaine was administered for local anesthesia. A 9-gauge Eviva vacuum assisted device was advanced to the targeted calcifications with stereotactic guidance through a guiding needle device. Twelve core specimens were obtained. Following the procedure a Securmark tissue marker was deployed at the site of biopsy. Please note, the clip migrated after deployment approximately 1.5 cm superficial (lateral) to the site of the remainder calcification. Hemostasis was obtained by holding manual pressure. A specimen radiograph demonstrates the calcifications within the specimen. The patient tolerated the procedure without immediate complications. Home-going instructions were given and the patient was discharged in good condition. Following the procedure a postprocedure 2D digital mammogram was performed in the lateral and CC projections demonstrating the tissue marker at the site of biopsy. IMPRESSION: Technically successful stereotactic biopsy of the left breast. . 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 MG SURGICAL SPECIMEN: LEFT BREAST - DECEMBER 17, 2018 - RECOMMENDATION: Treatment plan of the left breast. Notification was made to the office of Dr. Hyman on 12/21/18 at 9:45AM Final Signed Date and Time: 12/21/2018 9:46 am Signed by: MD JOSUE, [facility] Surgical-Specimenon 12-17 Surgical-Specimen Patient Name: JOI STERLING Mammography Exam Date/Time 12/17/2018 10:51:04 EDT Exam Surgical-Specimen Ordering Physician ALVARO HYMAN Accession Number [id number] CPT4 Codes 60665 () Reason For Exam lt calcs Report PROCEDURE: MG BX BREAST 1ST LESION STRTCTC LT: LEFT BREAST - DECEMBER 17, 2018 - REASON FOR EXAMINATION: Collection of microcalcifications in the left upper outer quadrant on outside examination CONSENT: The patient presents for stereotactic localization and biopsy for the left breast. Prior to the procedure red rules were performed which included patient name, date of , and procedure type. Risks, benefits and alternatives were explained to the patient and informed consent was obtained. The prior imaging dated 12/08/2018 was reviewed. PROCEDURE: I washed my hands and wore sterile gloves. The patient was sitting upright and calcifications were localized from a lateral approach. The patient was prepped in the usual sterile fashion. 30 mL of 1% Lidocaine was administered for local anesthesia. A 9-gauge Eviva vacuum assisted device was advanced to the targeted calcifications with stereotactic guidance through a guiding needle device. Twelve core specimens were obtained. Following the procedure a Securmark tissue marker was deployed at the site of biopsy. Please note, the clip migrated after deployment approximately 1.5 cm superficial (lateral) to the site of the remainder calcification. Hemostasis was obtained by holding manual pressure. A specimen radiograph demonstrates the calcifications within the specimen. The patient tolerated the procedure without immediate complications. Home-going instructions were given and the patient was discharged in good condition. Following the procedure a postprocedure 2D digital mammogram was performed in the lateral and CC projections demonstrating the tissue marker at the site of biopsy. IMPRESSION: Technically successful stereotactic biopsy of the left breast. . 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 MG SURGICAL SPECIMEN: LEFT BREAST - DECEMBER 17, 2018 - RECOMMENDATION: Treatment plan of the left breast. Notification was made to the office of Dr. Hyman on 12/21/18 at 9:45AM Final Signed Date and Time: 12/21/2018 9:46 am Signed by: MD JOSUE, [facility]- [facility] Surgical Pathology [id number] [facility]PART[facility] PATHOLOGY AND LABORATORY MEDICINE [address] [place], [place] [id number] FINAL SURGICAL PATHOLOGY REPORT NAME: JOI LONG : 1955 63 Y F BILLING NO.: [id number] LOCATION: 1BRO PROCEDURE 12/17/2018 DATE: SURGEON: ALVARO HYMAN M.D. RECEIVED 12/17/2018 DATE: ATTENDING: ALVARO HYMAN M.D. REPORT DATE: 12/20/2018 COPIES TO: SUMIT SALAS M.D. 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 ER/RI staining is pending and will be submitted in a supplemental report. AHD/D Signature> DINO ROOT M.D. CLINICAL INFORMATION: Left calcifications SPECIMEN: BREAST NEEDLE CORE BIOPSY GROSS DESCRIPTION: Left breast calcifications Specimen removed from patient 10:34 and placed into formalin at 10:38. Received in formalin are innumerable portions of yellow-zazueta, fibrofatty breast tissue and several core-like fragments of pink-zazueta breast tissue. The specimen aggregates to 4 x 4 x 0.4 cm. Specimen is entirely submitted into five cassettes. (bits ns, 5) DKS/JAF Disclaimer: The following statement applies to all immunohistochemistry, in situ hybridization, molecular studies, and immunofluorescence testing. The use of one or more reagents in the above tests is regulated as an analyte specific reagent (ASR). These tests were developed and their performance characteristics determined by the clinical laboratories of [facility]. They have not been cleared by the US Food and Drug Administration (FDA). The FDA has determined that such clearance or approval is not necessary. All the above immunostains were performed on paraffin embedded tissue. Appropriate positive and negative controls (where applicable) were run in parallel with the patient's specimen; these controls showed expected staining pattern, with acceptable intensity of staining. Immunohistochemical assays have not been validated on decalcified tissues. Results should be interpreted with caution given the raised possibility of false negativity on decalcified specimens. Professional Performing Location: [address] [address]. DEPARTMENT OF PATHOLOGY AND LABORATORY MEDICINE [place], [place] [address] Normal [facility] Influenza virus A and B and SARS-CoV-2 (COVID-19) Ag panel - Upper respiratory specim SARS-CoV-2 (COVID-19) RNA HEIKE+probe Ql (Resp) [facility] Work Phone: Vital Signs Date Time Vital Sign Value Performing Clinician Facility 06-22-2025 09:26-0400 Body temperature 98 [degF] Dr. Gregg Anton MD Work Phone: [facility] 06-22-2025 09:26-0400 Body weight 72.[address] Gregg Anton MD Work Phone: [facility] 06-22-2025 09:26-0400 Diastolic blood pressure 90 mm[Hg] Dr. Gregg Anton MD Work Phone: [facility] 06-22-2025 09:26-0400 Heart rate 89 /min Dr. Gregg Anton MD Work Phone: [facility] 06-22-2025 09:26-0400 Respiratory rate 16 /min Dr. Gregg Anton MD Work Phone: [facility] 06-22-2025 09:26-0400 SaO2% (BldA) [Mass fraction] 100 % Dr. Gregg Anton MD Work Phone: [facility] 06-22-2025 09:26-0400 Systolic blood pressure 162 mm[Hg] Dr. Gregg Anton MD Work Phone: [facility] 05-10-2025 11:08-0400 Body mass index (BMI) [Ratio] 27.72 kg/m2 Nora Barton MD Work Phone: [facility] 05-10-2025 11:08-0400 Body weight 72.12 kg Nora Barton MD Work Phone: [facility] 05-10-2025 11:08-0400 Diastolic blood pressure 62 mm[Hg] Nora Barton MD Work Phone: [facility] 05-10-2025 11:08-0400 Systolic blood pressure 124 mm[Hg] Nora Barton MD Work Phone: [facility] 03-29-2025 09:34-0400 Body height 161.3 cm Nora Barton MD Work Phone: [facility] 03-29-2025 09:34-0400 Body mass index (BMI) [Ratio] 27.72 kg/m2 Nora Barton MD Work Phone: [facility] 03-29-2025 09:34-0400 Body weight 72.12 kg Nora Barton MD Work Phone: [facility] 03-29-2025 09:34-0400 Diastolic blood pressure 82 mm[Hg] Nora Barton MD Work Phone: [facility] 03-29-2025 09:34-0400 Systolic blood pressure 126 mm[Hg] Nora Barton MD Work Phone: [facility] 03-16-2025 13:13-0400 Diastolic blood pressure 85 mm[Hg] Lee Miller MD Work Phone: [facility] 03-16-2025 13:13-0400 Systolic blood pressure 157 mm[Hg] Lee Miller MD Work Phone: [facility] 03-16-2025 13:07-0400 Body height 162.6 cm Lee Miller MD Work Phone: [facility] 03-16-2025 13:07-0400 Body mass index (BMI) [Ratio] 27.24 kg/m2 Lee Miller MD Work Phone: [facility] 03-16-2025 13:07-0400 Body temperature 96.4 [degF] Lee Miller MD Work Phone: [facility] 03-16-2025 13:07-0400 Body weight 71.99 kg Lee Miller MD Work Phone: [facility] 03-16-2025 13:07-0400 Heart rate 90 /min Lee Miller MD Work Phone: [facility] 03-16-2025 13:07-0400 SaO2% (BldA) [Mass fraction] 98 % Lee Miller MD Work Phone: [facility] 03-09-2025 13:38-0400 Body height 162.6 cm Lee Miller MD Work Phone: [facility] 03-09-2025 13:38-0400 Body mass index (BMI) [Ratio] 26.61 kg/m2 Lee Miller MD Work Phone: [facility] 03-09-2025 13:38-0400 Body weight 70.31 kg Lee Miller MD Work Phone: [facility] 05-12-2024 14:49-0400 Body height 162.6 cm Michoacano Braga MD Work Phone: [facility] 05-12-2024 14:49-0400 Body mass index (BMI) [Ratio] 28.67 kg/m2 Michoacano Braga MD Work Phone: [facility] 05-12-2024 14:49-0400 Body temperature 98.2 [degF] Michoacano Braga MD Work Phone: [facility] 05-12-2024 14:49-0400 Body weight 75.75 kg Michoacano Braga MD Work Phone: [facility] 05-12-2024 14:49-0400 Diastolic blood pressure 75 mm[Hg] Michoacano Braga MD Work Phone: [facility] 05-12-2024 14:49-0400 Heart rate 88 /min Michoacano Braga MD Work Phone: [facility] 05-12-2024 14:49-0400 Respiratory rate 16 /min Michoacano Braga MD Work Phone: [facility] 05-12-2024 14:49-0400 SaO2% (BldA) [Mass fraction] 99 % Michoacano Braga MD Work Phone: [facility] 05-12-2024 14:49-0400 Systolic blood pressure 139 mm[Hg] Michoacano Braga MD Work Phone: [facility] 04-18-2024 11:26-0400 Body mass index (BMI) [Ratio] 28.87 kg/m2 Nora Barton MD Work Phone: [facility] 04-18-2024 11:26-0400 Body weight 76.3 kg Nora Barton MD Work Phone: [facility] 04-18-2024 11:26-0400 Diastolic blood pressure 80 mm[Hg] Nora Barton MD Work Phone: [facility] 04-18-2024 11:26-0400 Systolic blood pressure 120 mm[Hg] Nora Barton MD Work Phone: [facility] 04-07-2024 09:55-0400 Body height 162.6 cm Nora Barton MD Work Phone: [facility] 04-07-2024 09:55-0400 Body mass index (BMI) [Ratio] 28.84 kg/m2 Nora Barton MD Work Phone: [facility] 04-07-2024 09:55-0400 Body weight 76.2 kg Nora Barton MD Work Phone: [facility] 04-07-2024 09:55-0400 Diastolic blood pressure 82 mm[Hg] Nora Barton MD Work Phone: [facility] 04-07-2024 09:55-0400 Systolic blood pressure 136 mm[Hg] Nora Barton MD Work Phone: [facility] 03-24-2024 13:27-0400 Body height 162.6 cm Michoacano Braga MD Work Phone: [facility] 03-24-2024 13:27-0400 Body mass index (BMI) [Ratio] 28.67 kg/m2 Michoacano Braga MD Work Phone: [facility] 03-24-2024 13:27-0400 Body temperature 97.11 [degF] Michoacano Braga MD Work Phone: [facility] 03-24-2024 13:27-0400 Body weight 75.75 kg Michoacano Braga MD Work Phone: [facility] 03-24-2024 13:27-0400 Diastolic blood pressure 86 mm[Hg] Michoacano Braga MD Work Phone: [facility] 03-24-2024 13:27-0400 Heart rate 89 /min Michoacano Braga MD Work Phone: [facility] 03-24-2024 13:27-0400 Respiratory rate 16 /min Michoacano Braga MD Work Phone: [facility] 03-24-2024 13:27-0400 SaO2% (BldA) [Mass fraction] 99 % Michoacano Braga MD Work Phone: [facility] 03-24-2024 13:27-0400 Systolic blood pressure 156 mm[Hg] Michoacano Braga MD Work Phone: [facility] 03-14-2024 13:13-0400 Body height 162.6 cm Lee Miller MD Work Phone: [facility] 03-14-2024 13:13-0400 Body mass index (BMI) [Ratio] 28.87 kg/m2 Lee Miller MD Work Phone: [facility] 03-14-2024 13:13-0400 Body temperature 96.3 [degF] Lee Miller MD Work Phone: [facility] 03-14-2024 13:13-0400 Body weight 76.3 kg Lee Miller MD Work Phone: [facility] 03-14-2024 13:13-0400 Diastolic blood pressure 92 mm[Hg] Lee Miller MD Work Phone: [facility] 03-14-2024 13:13-0400 Heart rate 84 /min Lee Miller MD Work Phone: [facility] 03-14-2024 13:13-0400 SaO2% (BldA) [Mass fraction] 97 % Lee Miller MD Work Phone: [facility] 03-14-2024 13:13-0400 Systolic blood pressure 172 mm[Hg] Lee Miller MD Work Phone: [facility] 03-08-2024 13:02-0400 Body height 162.6 cm Lee Miller MD Work Phone: [facility] 03-08-2024 13:02-0400 Body mass index (BMI) [Ratio] 29.01 kg/m2 Lee Miller MD Work Phone: [facility] 03-08-2024 13:02-0400 Body weight 76.66 kg Lee Miller MD Work Phone: [facility] 12-31-2023 14:38-0400 Body height 162.6 cm Chaz Meyers MD Work Phone: [facility] 12-31-2023 14:38-0400 Body mass index (BMI) [Ratio] 29.01 kg/m2 Chaz Meyers MD Work Phone: [facility] 12-31-2023 14:38-0400 Body temperature 97.3 [degF] Chaz Meyers MD Work Phone: [facility] 12-31-2023 14:38-0400 Body weight 76.66 kg Chaz Meyers MD Work Phone: [facility] 12-31-2023 14:38-0400 Diastolic blood pressure 88 mm[Hg] Chaz Meyers MD Work Phone: [facility] 12-31-2023 14:38-0400 Heart rate 90 /min Chaz Meyers MD Work Phone: [facility] 12-31-2023 14:38-0400 Respiratory rate 18 /min Chaz Meyers MD Work Phone: [facility] 12-31-2023 14:38-0400 SaO2% (BldA) [Mass fraction] 94 % Chaz Meyers MD Work Phone: [facility] 12-31-2023 14:38-0400 Systolic blood pressure 139 mm[Hg] Chaz Meyers MD Work Phone: [facility] 03-09-2023 13:12-0400 Body height 162.6 cm Lee Miller MD Work Phone: [facility] 03-09-2023 13:12-0400 Body mass index (BMI) [Ratio] 28.77 kg/m2 Lee Miller MD Work Phone: [facility] 03-09-2023 13:12-0400 Body temperature 95.5 [degF] Lee Miller MD Work Phone: [facility] 03-09-2023 13:12-0400 Body weight 76.02 kg Lee Miller MD Work Phone: [facility] 03-09-2023 13:12-0400 Diastolic blood pressure 76 mm[Hg] Lee Miller MD Work Phone: [facility] 03-09-2023 13:12-0400 Heart rate 90 /min Lee Miller MD Work Phone: [facility] 03-09-2023 13:12-0400 SaO2% (BldA) [Mass fraction] 96 % Lee Miller MD Work Phone: [facility] 03-09-2023 13:12-0400 Systolic blood pressure 126 mm[Hg] Lee Miller MD Work Phone: [facility] 03-05-2023 14:06-0400 Body height 162.6 cm Lee Miller MD Work Phone: [facility] 03-05-2023 14:06-0400 Body mass index (BMI) [Ratio] 27.81 kg/m2 Lee Miller MD Work Phone: [facility] 03-05-2023 14:06-0400 Body weight 73.48 kg Lee Miller MD Work Phone: [facility] 12-24-2022 09:48-0400 Body mass index (BMI) [Ratio] 29.15 kg/m2 Chaz Meyers MD Work Phone: [facility] 12-24-2022 09:48-0400 Body temperature 96.8 [degF] Chaz Meyers MD Work Phone: [facility] 12-24-2022 09:48-0400 Body weight 77.02 kg Chaz Meyers MD Work Phone: [facility] 12-24-2022 09:48-0400 Diastolic blood pressure 81 mm[Hg] Chaz Meyers MD Work Phone: [facility] 12-24-2022 09:48-0400 Heart rate 82 /min Chaz Meyers MD Work Phone: [facility] 12-24-2022 09:48-0400 Respiratory rate 16 /min Chaz Meyers MD Work Phone: [facility] 12-24-2022 09:48-0400 Systolic blood pressure 151 mm[Hg] Chaz Meyers MD Work Phone: [facility] 10-21-2022 13:38-0500 Body height 162.6 cm Michoacano Braga MD Work Phone: [facility] 10-21-2022 13:38-0500 Body weight 77.11 kg Michoacano Braga MD Work Phone: [facility] 10-21-2022 13:38-0500 Diastolic blood pressure 69 mm[Hg] Michoacano Braga MD Work Phone: [facility] 10-21-2022 13:38-0500 Heart rate 98 /min Michoacano Braga MD Work Phone: [facility] 10-21-2022 13:38-0500 Respiratory rate 16 /min Michoacano Braga MD Work Phone: [facility] 10-21-2022 13:38-0500 SaO2% (BldA) [Mass fraction] 96 % Michoacano Braga MD Work Phone: [facility] 10-21-2022 13:38-0500 Systolic blood pressure 149 mm[Hg] Michoacano Braga MD Work Phone: [facility] 09-23-2022 10:12-0500 Body temperature 99 [degF] Dr. Gregg Anton Work Phone: [facility] 09-23-2022 10:12-0500 Diastolic blood pressure 80 mm[Hg] Dr. Gregg Anton Work Phone: [facility] 09-23-2022 10:12-0500 Heart rate 100 /min Dr. Gregg Anton Work Phone: [facility] 09-23-2022 10:12-0500 Respiratory rate 16 /min Dr. Gregg Anton Work Phone: [facility] 09-23-2022 10:12-0500 SaO2% (BldA) [Mass fraction] 94 % Dr. Gregg Anton Work Phone: [facility] 09-23-2022 10:12-0500 Systolic blood pressure 138 mm[Hg] Dr. Gregg Anton Work Phone: [facility] 09-23-2022 04:56-0500 Body weight [address] Gregg Anton Work Phone: [facility] 09-22-2022 12:43-0500 Body height 162.[address] Gregg Anton Work Phone: [facility] 09-22-2022 12:43-0500 Body mass index (BMI) [Ratio] 28.5 kg/m2 Dr. Gregg Anton Work Phone: [facility] 09-22-2022 11:17-0500 Body temperature 97 [degF] [facility] Work Phone: 09-22-2022 11:17-0500 Diastolic blood pressure 82 mm[Hg] [facility] Work Phone: 09-22-2022 11:17-0500 Heart rate 127 /min [facility] Work Phone: 09-22-2022 11:17-0500 Respiratory rate 29 /min [facility] Work Phone: 09-22-2022 11:17-0500 SaO2% (BldA) [Mass fraction] 96 % [facility] Work Phone: 09-22-2022 11:17-0500 Systolic blood pressure 197 mm[Hg] [facility] Work Phone: 09-22-2022 05:46-0500 Body height 162.56 cm [facility] Work Phone: 09-22-2022 05:46-0500 Body mass index (BMI) [Ratio] 27.9 kg/m2 [facility] Work Phone: 09-22-2022 05:46-0500 Body weight 73.9 kg [facility] Work Phone: 01-13-2022 13:14-0400 Diastolic blood pressure 88 mm[Hg] Michoacano Braga MD Work Phone: [facility] 01-13-2022 13:14-0400 Systolic blood pressure 169 mm[Hg] Michoacano Braga MD Work Phone: [facility] 01-13-2022 12:39-0400 Body height 162.6 cm Michoacano Braga MD Work Phone: [facility] 01-13-2022 12:39-0400 Body temperature 97.9 [degF] Michoacano Braga MD Work Phone: [facility] 01-13-2022 12:39-0400 Body weight 84.1 kg Michoacano Braga MD Work Phone: [facility] 01-13-2022 12:39-0400 Heart rate 81 /min Michoacano Braga MD Work Phone: [facility] 01-13-2022 12:39-0400 Respiratory rate 18 /min Michoacano Braga MD Work Phone: [facility] 01-13-2022 12:39-0400 SaO2% (BldA) [Mass fraction] 97 % Michoacano Braga MD Work Phone: [facility] Encounters Encounter Date Encounter Type Care Provider Facility Start: 06-22-2025 End: 06-22-2025 Patient encounter procedure Kiki GANN -[facility] Work Phone: Start: 06-22-2025 End: 06-22-[address] Gregg Anton MD Work Phone: -[facility] Start: 05-25-2025 Non-patient / Non-visit Dr. Gregg munguia MD -[facility] Start: 05-25-2025 End: 05-25-[address] Gregg Anton MD Work Phone: -[facility]ovascular Services Start: 05-25-2025 End: 05-25-[address] Gregg Anton MD -Cardiovascular Services Work Phone: Start: 05-25-2025 End: 05-25-2025 ambulatory Gregg Atnon Facility:[facility] Start: 05-11-2025 End: 05-11-[address] Gregg Anton MD Work Phone: -[facility] [place] Start: 05-11-2025 End: 05-11-[address] Gregg Anton MD -[facility] [place] Work Phone: Start: 05-10-2025 End: 05-10-2025 Patient encounter procedure Nora Barton MD Work Phone: OB/Gynecology Comment on above: Urinary urgency (Christy elida Dx); Skin yeast infection; Postmenopausal atrophic vaginitis Start: 05-10-2025 End: 05-11-2025 ambulatory GREGG ANTON Facility:[facility] Start: 04-28-2025 End: 04-28-[address] Gregg Anton MD Work Phone: -[facility] [place] Start: 04-28-2025 End: 04-28-[address] Gregg Anton MD -[facility] [place] Work Phone: Start: 04-28-2025 End: 04-28-2025 ambulatory Gregg Anton Facility:[facility] Start: 04-05-2025 End: 04-05-2025 Refill Lee Miller MD Work Phone: [facility] Hematology and Medical Oncology [facility] [facility] Comment on above: Ductal carcinoma in situ (DCIS) of left breast Start: 03-29-2025 End: 03-29-2025 ambulatory GREGG ANTON Facility:[facility] Start: 03-29-2025 End: 03-29-2025 Patient encounter procedure Nora Barton MD Work Phone: OB/Gynecology Comment on above: Lichen sclerosus et atrophicus (Primary Dx); Urinary urgency; Skin yeast infection Start: 03-16-2025 End: 03-16-2025 ambulatory [facility] Start: 03-16-2025 End: 03-16-2025 Office outpatient visit 15 minutes Lee Miller MD Work Phone: [facility] Medical Oncology [facility] Comment on above: Ductal carcinoma in situ (DCIS) of left breast Start: 03-09-2025 End: 03-09-2025 Subsequent hospital visit by physician Lee Miller MD Work Phone: [facility] Comment on above: Ductal carcinoma in situ (DCIS) of left breast; Encounter for screening mammogram for breast cancer Start: 03-09-2025 End: 03-09-2025 ambulatory [facility] Start: 02-16-2025 End: 02-16-[address] Gregg Anton MD Work Phone: [facility] Work Phone: Start: 02-16-2025 End: 02-16-2025 Patient encounter procedure Geraldo Barrera [facility] -Outpatient Bone Densitometry Work Phone: Start: 02-16-2025 End: 02-16-2025 ambulatory Gregg Anton Facility:[facility] Start: 10-21-2024 End: 10-21-2024 ambulatory Gregg Neskowin Facility:[facility] Start: 10-05-2024 End: 10-05-2024 Refill Nora Barton MD Work Phone: OB/Gynecology Comment on above: Refill Request Start: 07-11-2024 ambulatory Gregg Anton Facility:[facility] Start: 07-11-2024 End: 07-11-2024 ambulatory Shane Beltrán Facility:[facility] Start: 06-27-2024 End: 06-27-2024 ambulatory Gregg Anton Facility:[facility] Start: 06-27-2024 End: 06-27-2024 ambulatory Shane Burbank Facility:[facility] Start: 05-25-2024 End: 05-25-2024 Telephone encounter Michoacano Braga MD Work Phone: Pulmonary Medicine Start: 05-20-2024 ambulatory MICHOACANO BRAGA Facilit y:[facility] Start: 05-20-2024 End: 05-20-2024 Subsequent hospital visit by physician Card Lab [facility] [place] [facility] Comment on above: Tachycardia [R00.0] Start: 05-17-2024 End: 05-19-2024 Telephone encounter Michoacano Braga MD Work Phone: Pulmonary Medicine Start: 05-12-2024 End: 05-12-2024 Patient encounter procedure Michoacano Braga MD Work Phone: Pulmonary Medicine Comment on above: Tachycardia (Primary Dx); Moderate persistent asthma without complication; Post-COVID chronic shortness of breath Start: 05-12-2024 End: 05-12-2024 ambulatory MICHOACANO BRAGA [facility] Start: 04-28-2024 End: 04-28-2024 Subsequent hospital visit by physician [facility] Comment on above: Post-COVID chronic s hortness of breath [R06.02, U09.9] Start: 04-28-2024 End: 04-28-2024 ambulatory [facility] Comment on above: Shortness of Breath Spirometry Start: 04-28-2024 End: 04-28-2024 Patient encounter procedure Pulm Fct Lab [facility] Pulm Lab Start: 04-28-2024 End: 04-28-2024 ambulatory [facility] Start: 04-18-2024 End: 04-18-2024 Patient encounter procedure Nora Barton MD Work Phone: OB/Gynecology Comment on above: Cystocele, midline ( Primary Dx); Urinary frequency Start: 04-07-2024 Telephone encounter Nora Barton MD Work Phone: [address] [place] [address] Comment on above: Pessary Start: 04-07-2024 End: 04-07-2024 Patient encounter procedure Nora Barton MD Work Phone: OB/Gynecology Comment on above: Encounter for gyneco logical examination with abnormal finding (Primary Dx); Cystocele, midline; Urinary frequency; Lichen sclerosus et atrophicus Start: 04-07-2024 End: 04-07-2024 Patient encounter status Nora Barton MD Work Phone: [facility] Work Phone: Start: 03-28-2024 Telephone encounter Michoacano Braga MD Work Phone: Pulmonary Medicine Comment on above: Refill Request Start: 03-24-2024 End: 03-24-2024 ambulatory [facility] Start: 03-24-2024 End: 03-24-2024 Subsequent hospital visit by physician Sonu 2 [facility] Comment on above: Post-COVID chronic s hortness of breath [R06.02, U09.9] Start: 03-24-2024 End: 03-24-2024 Patient encounter procedure Michoacano Braga MD Work Phone: Pulmonary Medicine Comment on above: Moderate persistent asthma without complication (Primary Dx); History of COVID-19; Post-COVID chronic shortness of breath Start: 03-24-2024 End: 03-24-2024 ambulatory [facility] Start: 03-14-2024 End: 03-14-2024 Office outpatient visit 15 minutes Lee Miller MD Work Phone: [facility] On[facility] Comment on above: Encounter for screen ing mammogram for breast cancer (Primary Dx); Ductal carcinoma in situ (DCIS) of left breast Start: 03-08-2024 End: 03-08-2024 Subsequent hospital visit by physician Lee Miller MD Work Phone: [facility] Comment on above: Ductal carcinoma in situ (DCIS) of left breast Start: 01-18-2024 End: 01-18-2024 ambulatory [facility] Work Phone: Start: 01-18-2024 End: 01-18-2024 Patient encounter procedure [facility] Start: 12-31-2023 End: 12-31-2023 Subsequent hospital visit by physician Chaz Meyers MD Work Phone: [facility] [employer] RAD ONC Start: 04-06-2023 End: 04-06-2023 ambulatory [facility] Work Phone: Start: 04-06-2023 End: 04-06-2023 Patient encounter procedure [facility], Specimen Work Phone: Start: 03-09-2023 End: 03-09-2023 Office outpatient visit 15 minutes Lee Miller MD Work Phone: [facility] Comment on above: Ductal carcinoma in situ (DCIS) of left breast (Primary Dx) Start: 03-05-2023 ambulatory Gregg Anton [facility] Start: 03-05-2023 End: 03-05-2023 Subsequent hospital visit by physician Lee Miller MD Work Phone: [facility] Comment on above: Screening mammogram, encounter for Start: 12-24-2022 End: 12-24-2022 Subsequent hospital visit by physician Chaz Meyers MD Work Phone: [facility] Start: 11-26-2022 End: 11-26-[address] Gregg Anton Work Phone: [facility] Work Phone: Start: 11-26-2022 End: 11-26-[address] Gregg Anton Work Phone: [facility], Specimen Start: 11-13-2022 End: 11-13-[address] Gregg Anton Work Phone: [facility] Work Phone: Start: 11-13-2022 End: 11-13-[address] Gregg Anton Work Phone: [facility] Start: 10-21-2022 End: 10-21-2022 Patient encounter procedure Michoacano Braga MD Work Phone: Pulmonary Medicine Comment on above: Moderate persistent asthma without complication (Primary Dx); History of COVID-19; Chronic fatigue syndrome Start: 10-20-2022 End: 10-20-[address] Gregg Anton Work Phone: [facility] Work Phone: Start: 10-20-2022 End: 10-20-[address] Gregg Anton Work Phone: [facility] Start: 10-06-2022 End: 10-06-[address] Gregg Anton Work Phone: [facility] Start: 09-23-2022 Non-patient / Non-visit Dr. Jose Anton Work Phone: [facility] Start: 09-22-2022 Non-patient / Non-visit Dr. Jose Anton Work Phone: [facility] Start: 09-22-2022 End: 09-23-2022 [facility] Start: 07-21-2022 End: 07-21-2022 ambulatory [facility] Work Phone: Start: 07-21-2022 End: 07-21-2022 Patient encounter procedure [facility] [place] Start: 06-25-2022 End: 06-25-2022 [facility] Work Phone: Start: 06-25-2022 End: 06-25-2022 Patient encounter procedure [facility], Specimen Start: 05-23-2022 End: 05-23-2022 ambulatory [facility] Work Phone: Start: 05-23-2022 End: 05-23-2022 Patient encounter procedure [facility], [facility] Start: 03-04-2022 [facility] Start: 02-04-2022 End: 02-04-2022 Patient encounter procedure [facility], [facility] Start: 01-13-2022 End: 01-13-2022 Patient encounter procedure Michoacano Braga MD Work Phone: Pulmonary Medicine Comment on above: Moderate persistent asthma without complication (Primary Dx); History of COVID-19 Start: 10-28-2021 ambulatory [facility] Start: 02-28-2021 End: 02-28-2021 Subsequent hospital visit by physician Alvaro Hyman MD Work Phone: [facility] Comment on above: Arrived Start: 02-14-2021 End: 02-14-2021 Subsequent hospital visit by physician Yong [facility] Work Phone: Radiology Comment on above: History of COVID-19 [Z86.16] Start: 10-16-2020 End: 10-16-2020 Subsequent hospital visit by physician Chaz Meyers Work Phone: [facility] Start: 02-27-2020 End: 02-27-2020 Subsequent hospital visit by physician Alvaro Hyman Work Phone: [facility] Comment on above: Arrived Start: 10-14-2019 End: 10-14-2019 Subsequent hospital visit by physician Chaz Meyers MD Work Phone: [facility] Rad Onc Start: 07-19-2019 End: 07-19-2019 Subsequent hospital visit by physician Hector Dalton Work Phone: [facility] [place] [facility] Comment on above: Arrived Start: 07-05-2019 End: 07-05-2019 Subsequent hospital visit by physician Lee Miller Work Phone: [facility] Mammography Comment on above: Ductal carcinoma in situ (DCIS) of left breast; Disorder of bone density and structure, unspecified Start: 05-12-2019 End: 05-12-2019 Subsequent hospital visit by physician Chaz Meyers Work Phone: [facility] Rad Onc Start: 12-17-2018 Patient encounter procedure [facility] Procedures Date Procedure Procedure Detail Performing Clinician Start: 05-11-2025 X-ray of lumbar spin e, two or three views Dr. Gregg Anton MD Work Phone: Start: 04-28-2025 Urine microalbumin/creatinine ratio measurement Dr. Gregg Anton MD Work Phone: Start: 03-16-2025 Follow-up visit Follow-up LEE MILLER Start: 03-09-2025 End: 03-09-2025 Screening digital breast tomosynthesis bi Lee Miller MD Work Phone: Start: 02-16-2025 Dual energy X-ray absorptiometry Dr. Gregg Anton MD Work Phone: Start: 05-12-2024 Follow-up visit Follow Up MICHOACANO BRAGA Start: 04-28-2024 Echo tthrc r-t 2d w/wom-mode compl spec&colr d Michoacano Braga MD Work Phone: Start: 04-28-2024 Nitric oxide gas determination Michoacano Braga MD Work Phone: Start: 04-28-2024 Co diffusing capacity A payton Braga MD Work Phone: Start: 03-08-2024 End: 03-08-2024 Screening digital breast tomosynthesis bi Lee Miller MD Work Phone: Start: 03-05-2023 End: 03-05-2023 Screening digital breast tomosynthesis bi Lee Miller MD Work Phone: Start: 09-22-2022 Computed tomography of abdomen and pelvis with intravenous contrast Start: 09-22-2022 Plain chest X-ray Start: 02-28-2021 Screening digital br east tomosynthesis bi Alvaro Hyman MD Work Phone: Start: 02-14-2021 Radiologic exam ches t 2 views Shane Loyd PA-C Work Phone: Start: 02-27-2020 Diagnostic mammograp hy computer-aided detcj bi Alvaro Hyman Work Phone: Start: 07-19-2019 Mri brain brain stem w/o w/contrast material Hector Dalton Work Phone: Start: 07-05-2019 Dxa bone density jayleen dy 1/> sites axial skel Lee Miller Work Phone: Start: 12-14-2014 Mammography Michoacano Braga MD Work Phone: Start: 09-14-2002 Colonoscopy Michoacano Braga MD Work Phone: Bacteria identified in Blood by Culture Dr. Gregg Anton Work Phone: Bacteria identified in Urine by Culture Dr. Gregg Anton Work Phone: SARS-CoV-2 & FLU Ant igen (Rapid) SARS-CoV-2 & FLU Ant igen (Rapid) Dr. Gregg Anton Work Phone: Urine culture Dr. Gregg Anton Work Phone: Urine culture Dr. Gregg Anton Work Phone: Plan of Treatment Date Care Activity Detail Author Start: 05-28-2028 DTaP/Tdap/Td vaccine (2 - Td or Tdap) DTaP/Tdap/Td vaccine (2 - Td or Tdap) [facility] Work Phone: Start: 05-28-2028 DTaP/Tdap/Td vaccine (2 - Td) DTaP/Tdap/Td vaccine (2 - Td) [facility] [place], [place] Start: 05-28-2028 DTaP/Tdap/Td Vaccine s (2 - Td or Tdap) DTaP/Tdap/Td Vaccines (2 - Td or Tdap) [facility] Start: 05-28-2028 Urine microalbumin profile [facility] Start: 03-30-2026 End: 03-30-2026 Patient encounter procedure 03/30/2026 1:40 PM EDT Office Visit OB/Gynecology [address] [place], [place] [id number] Nora Barton MD [address] [place], [place] [id number] annual OB/Gynecology Comment on above: annual Start: 03-09-2026 Screening for malign ant neoplasm of breast [facility] Start: 07-17-2025 Pneumococcal Vaccine : 50+ Years (3 of 3 - PCV20 or PCV21) Pneumococcal Vaccine: 50+ Years (3 of 3 - PCV20 or PCV21) [facility] Start: 07-17-2025 Pneumococcal Vaccine : 65+ Years (#3) Pneumococcal Vaccine: 65+ Years (#3) [facility] Start: 07-17-2025 Pneumococcal Vaccine : 65+ Years (3 - PPSV23 if available, else PCV20) Pneumococcal Vaccine: 65+ Years (3 - PPSV23 if available, else PCV20) [facility] Start: 07-17-2025 Pneumococcal Vaccine : 65+ Years (3 of 3 - PPSV23 or PCV20) Pneumococcal Vaccine: 65+ Years (3 of 3 - PPSV23 or PCV20) [facility] Start: 07-17-2025 PNEUMOCOCCAL: 65+ (3 - PPSV23 if available, else PCV20) PNEUMOCOCCAL: 65+ (3 - PPSV23 if available, else PCV20) [facility] Start: 07-17-2025 PNEUMOVAX AGE 65 AND OVER WITH 5YR LOOKBACK (#1) PNEUMOVAX AGE 65 AND OVER WITH 5YR LOOKBACK (#1) [facility] Start: 05-15-2025 Influenza vaccination S [facility] Start: 05-10-2025 End: 05-10-2025 Patient encounter procedure 05/10/2025 11:10 AM EDT Office Visit OB/Gynecology [address] [place] [id number] Nora Barton MD [address] [place] [address] 6-8 week check up OB/Gynecology Comment on above: 6-8 week check up Start: 04-10-2025 End: 04-10-2025 Patient encounter procedure 04/10/2025 11:10 AM EDT Office Visit OB/Gynecology [address] [place] [address] Nora Barton MD [address] [place] [address] Annual OB/Gynecology Comment on above: Annual Start: 03-16-2025 End: 03-16-2025 Patient encounter procedure [facility] Start: 03-14-2025 End: 05-15-2025 DBT Breast - bilateral screening Bilateral screening mammogram with tomosynthesis Imaging Routine Ductal carcinoma in situ (DCIS) of left breast Encounter for screening mammogram for breast cancer Expected: 03/14/2025, Expires: 05/15/2025 [facility] Work Phone: Comment on above: Expected: 03/14/2025 , Expires: 05/15/2025 Start: 03-09-2025 End: 03-09-2025 Patient encounter procedure 03/09/2025 1:30 PM EDT Appointment [facility] [address] [place] [address] Lee Miller MD [address] [facility] [address] [place] [address] [facility] Start: 03-08-2025 Screening for malign ant neoplasm of breast [facility] Start: 09-14-2024 Advance Directive Discussion Advance Directive Discussion [facility] Start: 09-14-2024 Medicare Advantage A nnual Wellness Visit Medicare Advantage Annual Wellness Visit [facility] Start: 08-31-2024 End: 08-31-2024 Patient encounter procedure 08/31/2024 2:40 PM EST Office Visit Pulmonary Medicine [address] [place] [address] Michoacano Braga MD [address] [place], [place] [id number] 4 month follow up Pulmonary Medicine Comment on above: 4 month follow up Start: 05-20-2024 End: 05-20-2024 Patient encounter procedure 05/20/2024 3:00 PM EDT Appointment [facility] [address] [place] [address] Extended wear patch Tachycardia [R00.0] [facility] Comment on above: Extended wear patch Tachycardia [R00.0] Start: 05-15-2024 Covid-19 Vaccine ( season) Covid-19 Vaccine () [facility] Start: 05-15-2024 Covid-19 Vaccine ( season) Covid-19 Vaccine () [facility] Start: 05-15-2024 Influenza vaccination S [facility] Start: 05-12-2024 End: 05-12-2024 Patient encounter procedure Pulmonary Medicine Comment on above: Post-COVID chronic s hortness of breath [R06.02, U09.9] ??Asthma//Post-COVID chronic shortness of breath [R06.02, U09.9] Start: 04-28-2024 End: 04-28-2024 Patient encounter procedure 04/28/2024 2:30 PM EDT Appointment [facility] [address] [place], [place] [phone] Post-COVID chronic shortness of breath [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, U09.9] [facility] Comment on above: Post-COVID chronic s hortness of breath [R06.02, U09.9] Start: 04-28-2024 End: 04-28-2024 ambulatory [facility] Comment on above: Post-COVID chronic s hortness of breath [R06.02, U09.9] Start: 04-18-2024 End: 07-18-2024 Urinalysis complete panel - Urine [facility] Work Phone: Comment on above: Expected: 04/18/2024 , Expires: 07/18/2024 Start: 04-18-2024 End: 04-18-2024 Patient encounter procedure 04/18/2024 11:10 AM EDT Office Visit OB/Gynecology [address] [place] [address] Nora Barton MD [address] [place] [address] Post void residual OB/Gynecology Comment on above: Post void residual Start: 04-07-2024 End: 04-07-2024 Patient encounter procedure 04/07/2024 9:40 AM EDT Office Visit OB/Gynecology [address] [place] [address] Nora Barton MD [address] [place] [address] ANNUAL SOUND CONTROLLER EXAM OB/Gynecology Comment on above: ANNUAL SOUND CONTROLLER EXAM Start: 03-14-2024 End: 03-14-2024 Patient encounter procedure [facility] Start: 03-09-2024 End: 05-09-2024 DBT Breast - bilateral screening Bilateral screening mammogram with tomosynthesis Imaging Routine Ductal carcinoma in situ (DCIS) of left breast Expected: 03/09/2024, Expires: 05/09/2024 [facility] Work Phone: Comment on above: Expected: 03/09/2024 , Expires: 05/09/2024 Start: 03-08-2024 End: 03-08-2024 Patient encounter procedure 03/08/2024 1:00 PM EDT Appointment [facility] [address] [facility] [place] [phone] [facility] Start: 03-05-2024 Screening for malign ant neoplasm of breast Mammogram [facility] Start: 09-14-2023 Advance Directive Discussion Advance Directive Discussion [facility] Start: 09-14-2023 Behavioral Health Screening Behavioral Health Screening [facility] Start: 09-14-2023 Medicare Advantage A nnual Wellness Visit Medicare Advantage Annual Wellness Visit [facility] Start: 05-15-2023 COVID-19 Vaccine () COVID-19 Vaccine () [facility] Start: 03-09-2023 End: 03-09-2023 Patient encounter procedure [facility] Start: 03-05-2023 End: 03-05-2023 Patient encounter procedure 03/05/2023 Appointment Radiology [facility] Start: 09-23-2022 Patient discharge [facility] Start: 09-22-2022 Following clinical p athway protocol [facility] Start: 09-22-2022 Blood chemistry [facility] Work Phone: Start: 09-22-2022 Assessment of risk o f venous thromboembolism [facility] Start: 09-22-2022 Continuous pulse oximetry [facility] Start: 09-22-2022 Following clinical p athway protocol [facility] Start: 09-22-2022 Incentive spirometry [facility] Start: 09-22-2022 Insertion of cathete r into peripheral vein [facility] Start: 09-22-2022 Lab findings surveillance [facility] Start: 09-22-2022 Measuring intake and output [facility] Start: 09-22-2022 Notification of physician [facility] Start: 09-22-2022 Patient education [facility] Start: 09-22-2022 Providing care accor ding to standard [facility] Start: 09-22-2022 Vital signs measurements [facility] Start: 09-22-2022 End: 09-22-2022 [facility] Start: 09-22-2022 Admission procedure [facility] Start: 09-22-2022 End: 09-22-2022 Blood culture [facility] Work Phone: Start: 09-22-2022 [facility] Work Phone: Start: 09-14-2022 ADVANCE DIRECTIVE DISCUSSION ADVANCE DIRECTIVE DISCUSSION [facility] Start: 09-14-2022 DEPRESSION ASSESSMENT DEPRESSION ASS ESSMENT [facility] Start: 06-29-2022 Screening for malign ant neoplasm of colon [facility] Start: 05-15-2022 Influenza vaccination INFLUENZ A (Season Ended) [facility] Start: 02-28-2022 Screening for malign ant neoplasm of breast Breast cancer screen [facility] Work Phone: Start: 11-29-2021 COVID-19 VACCINE (4 - Booster for Pfizer series) COVID-19 VACCINE (4 - Booster for Pfizer series) [facility] Start: 09-14-2021 ADVANCE DIRECTIVE DISCUSSION ADVANCE DIRECTIVE DISCUSSION [facility] Start: 04-15-2021 End: 04-15-2021 Office Visit 04/15/2021 Office Visit Hematology and Oncology Lee Miller [facility] [address] [address] [place], [place] [id number] [facility] Oncology [place] Start: 02-26-2021 Screening for malign ant neoplasm of breast Breast cancer screen [facility] [place] Start: 12-31-2020 BONE DENSITY BONE DENSITY [facility] Start: 12-31-2020 Pneumococcal 65+ yea rs Vaccine (2 of 2 - PPSV23) Pneumococcal 65+ years Vaccine (2 of 2 - PPSV23) [facility] Work Phone: Start: 12-31-2020 Screening for osteoporosis Bone Dens ity Screening [facility] Start: 12-27-2020 Annual Wellness Visi t (AWV) Annual Wellness Visit (AWV) [facility] Work Phone: Start: 03-26-2020 End: 03-26-2020 Office Visit 03/26/2020 Office Visit Hematology and Oncology Lee Miller MD [address] [facility] [address] [place] [address] [facility] On[facility] [place] Start: 03-15-2020 End: 03-15-2020 Office Visit 03/15/2020 Office Visit Behavioral Health Makenna Parker, PhD [address] [place] [address], [address] [place] [phone] [facility] Start: 12-28-2019 Breast cancer screen Breast cancer s creen [place], [place] Start: 12-28-2019 Screening for malign ant neoplasm of breast Breast cancer screen [place], [place] Start: 12-23-2019 Creatinine measurement Creatinine mo nitoring [place] Start: 12-23-2019 Creatinine monitoring Creatinine mon [place]oring [place] Start: 12-23-2019 Potassium monitoring Potassium monit oring [place] Start: 11-07-2019 End: 11-07-2019 Patient encounter procedure 11/07/2019 Office Visit Hematology and Oncology Lee Miller MD [address] [facility] [place] [address] [phone] [facility] Oncology [place] Start: 10-18-2019 End: 10-18-2019 Patient encounter procedure 10/18/2019 Office Visit Behavioral Health Makenna Parker, PhD [address] [facility] [place] [phone] [facility] Start: 08-08-2019 End: 08-08-2019 Office Visit 08/08/2019 Office Visit Hematology and Oncology Lee Miller MD [address] [facility] [place] [address] [phone] [facility] [place] Start: 06-06-2019 End: 06-06-[address] [facility] [place] Start: 05-15-2019 Influenza vaccination Flu vaccine (# 1) [place], [place] Start: 06-02-2018 Hemoglobin A1c measurement HbA1C [facility] Start: 06-02-2018 Hemoglobin A1c/Hemoglobin.total in Blood HBA1C [facility] Start: 08-19-2016 Shingles Vaccine (2 of 3) Murphy gles Vaccine (2 of 3) [place] Start: 08-19-2016 SHINGRIX VACCINE (2 of 3) MURPHY GRIX VACCINE (2 of 3) [facility] Start: 08-19-2016 Zoster Vaccines (2 of 3) Zoste r Vaccines (2 of 3) [facility] Start: 2016 RSV Immunization age d 60 or older (1 - 1-dose 60+ series) RSV Immunization aged 60 or older (1 - 1-dose 60+ series) [facility] Start: 2016 RSV Immunization for Adults (1 - Risk 60-74 years 1-dose series) RSV Immunization for Adults (1 - Risk 60-74 years 1-dose series) [facility] Start: 2016 RSV Vaccine (1 - 1-d ose 60+ series) RSV Vaccine (1 - 1-dose 60+ series) [facility] Start: 2016 RSV Vaccine (1 - Ris k 60-74 years 1-dose series) RSV Vaccine (1 - Risk 60-74 years 1-dose series) [facility] Start: 12-15-2015 Mammography MAMMOGRAM [facility] Start: 09-14-2012 Screening for malign ant neoplasm of colon [facility] Start: 12-31-2005 Colon cancer screen colonoscopy Colon cancer screen colonoscopy [place] Start: 12-31-2005 Screening for malign ant neoplasm of colon Colon cancer screen colonoscopy [place] Start: 09-14-2003 Colonoscopy COLONOSCOPY [facility] Start: 09-14-2003 COLORECTAL CANCER SCREENING COLORECTAL CANCER SCREENING [facility] Start: 09-14-2003 Screening for malign ant neoplasm of colon Colonoscopy [facility] Start: 12-31-2000 COLOGUARD (FIT-DNA) COLOGUARD (FIT-D NA) [facility] Start: 12-31-[address] COLONOGRAPHY [facility] Start: 12-31-2000 FECAL OCCULT BLOOD FECAL OCCULT BLOO D [facility] Start: 12-31-2000 Screening for malign ant neoplasm of colon [facility] Start: 12-31-2000 SIGMOIDOSCOPY SIGMOIDOSCOPY [facility] Start: 1996 Diabetes screen Diabetes screen [place], [place] Start: 1996 Lipid panel Lipid screen [place], [place] Start: 1996 Lipid screen Lipid screen [place] Start: 12-31-1976 Cervical cancer screen Cervical canc er screen [place], [place] Start: 12-31-1976 Screening for malign ant neoplasm of cervix Cervical cancer screen [facility], [place] Start: 12-31-1974 Urine screening for protein Diabetes: Urine Protein Screening [facility] Start: 12-31-1973 ANNUAL PCP TEAM RIVETER ALVIN DISEASE VISIT ANNUAL PCP TEAM CHRONIC DISEASE VISIT [facility] Start: 12-31-1973 Anxiety Screening Anxiety Screening [facility] Start: 12-31-1973 BP CONTROLLED (<130/80) BP CONTROLLE D (<130/80) [facility] Start: 12-31-1973 Depression Screening Depression Scre ening [facility] Start: 12-31-1973 Diabetes: Estimated Glomerular Filtration Rate for Kidney [facility] Diabetes: Estimated Glomerular Filtration Rate for Kidney Health [facility] Start: 12-31-1973 Diabetes: Urine Albumin-Creatinine Ratio for Kidney [facility] Diabetes: Urine Albumin-Creatinine Ratio for Kidney [facility] Start: 12-31-1973 Hepatitis B surface antibody level LDL CHOLESTEROL [facility] Start: 12-31-1973 HEPATITIS C SCREENING [facility] Start: 12-31-1973 Hepatitis C screening Hepatitis C Sc [facility] Start: 12-31-1970 HIV screen HIV screen [facility], [place] Start: 12-31-1970 HIV screening [facility] [place] Start: 1968 Adult depression scr eening assessment DEPRESSION SCREENING [facility] Start: 12-31-1965 3 comp foot exam completed DIABETIC FOOT EXAM [facility] Start: 12-31-1965 Diabetic foot examination [facility] Start: 12-31-1965 Glaucoma screening [facility] Start: 12-31-1965 Hepatitis B screening URINE ALBUMIN:CREATININE RATIO [facility] Start: 12-31-1965 Hepatitis C antibody , confirmatory test DILATED RETINAL EXAM [facility] Start: 12-31-1965 Lipid panel Lipid screen [facility] Start: 12-31-1965 Lipid screen Lipid screen [facility], [place] Start: 12-31-1965 Preventive dental service Diabetes: Dental Exam [facility] Start: 1955 Hemoglobin A1c measurement Alyssia betes: Hemoglobin A1C [facility] Start: 1955 Hepatitis B Vaccines (1 of 3 - 3-dose series) Hepatitis B Vaccines (1 of 3 - 3-dose series) [facility] Start: 1956 Hepatitis C screen Hepatitis C scree n [facility], [place] Start: 1956 Hepatitis C screening Hepatitis C sc [facility], [place] Start: 1956 Lipid panel Lipid Panel [facility] Start: 1956 Screening for malign ant neoplasm of colon [facility] Start: 1956 Screening for osteoporosis Bone Dens ity Scan [facility] Acetone [Presence] i n Serum or Plasma [facility] Work Phone: Anion gap measurement [facility] Work Phone: Bacteria identified in Blood by Culture Blood Culture [facility] Work Phone: Bacteria identified in Urine by Culture Urine Culture [facility] Work Phone: Bacteria identified in Urine by Culture URINE CULTURE Microbiology Routine Cystocele, midline Urinary frequency 04/18/2024 12:34 PM EDT [facility] Blood culture [facility] Work Phone: BUN/Creatinine ratio [facility] Work Phone: Calcium [Mass/volume ] in Serum or Plasma [facility] Work Phone: Carbon dioxide, tota l [Moles/volume] in Serum or Plasma [facility] Work Phone: Chloride [Moles/volu me] in Serum or Plasma [facility] Work Phone: Creatinine [Moles/vo lume] in Serum or Plasma [facility] Work Phone: End: 03-24-2025 Echocardiography ECHO Cardiology Routine Post-COVID chronic shortness of breath 1 Occurrences starting 03/24/2024 until 03/24/2025 [facility] Work Phone: Comment on above: 1 Occurrences starti ng 03/24/2024 until 03/24/2025 End: 05-12-2025 EXTENDED WEAR SUPERVISOR BOTTLE MACHINES PATCH EXTENDED WEAR SUPERVISOR BOTTLE MACHINES PATCH ECG Routine Tachycardia 1 Occurrences starting 05/12/2024 until 05/12/2025 [facility] Work Phone: Comment on above: 1 Occurrences starti ng 05/12/2024 until 05/12/2025 End: 05-20-2024 EXTENDED WEAR SUPERVISOR BOTTLE MACHINES PATCH EXTENDED WEAR SUPERVISOR BOTTLE MACHINES PATCH ECG Routine Tachycardia 1 Occurrences starting 05/20/2024 until 05/20/2024 [facility] Work Phone: Comment on above: 1 Occurrences starti ng 05/20/2024 until 05/20/2024 Glucose [Mass/volume ] in Serum or Plasma [facility] Work Phone: End: 04-23-2025 LUNG DIFFUSION CAPACITY (DLCO) LUNG DIFFUSION CAPACITY (DLCO) PFT Routine Post-COVID chronic shortness of breath 1 Occurrences starting 03/24/2024 until 04/23/2025 [facility] Comment on above: 1 Occurrences starti ng 03/24/2024 until 04/23/2025 End: 04-23-2025 LUNG VOLUMES LUNG VOLUMES PFT Routine Post-COVID chronic shortness of breath 1 Occurrences starting 03/24/2024 until 04/23/2025 [facility] Comment on above: 1 Occurrences starti ng 03/24/2024 until 04/23/2025 Measurement of renal function [facility] Work Phone: End: 04-23-2025 NITRIC OXIDE, EXHALED NITRIC OXIDE, EXHALED PFT Routine Moderate persistent asthma without complication 1 Occurrences starting 03/24/2024 until 04/23/2025 [facility] Comment on above: 1 Occurrences starti ng 03/24/2024 until 04/23/2025 Patient referral [facility] Work Phone: Potassium [Moles/vol ume] in Serum or Plasma [facility] Work Phone: Sodium [Moles/volume ] in Serum or Plasma [facility] Work Phone: End: 04-23-2025 SPIROMETRY WITH DILATOR IF OBSTRUCTED SPIROMETRY WITH DILATOR IF OBSTRUCTED PFT Routine Post-COVID chronic shortness of breath 1 Occurrences starting 03/24/2024 until 04/23/2025 [facility] Comment on above: 1 Occurrences starti ng 03/24/2024 until 04/23/2025 Urea nitrogen [Mass/volume] in Serum or Plasma [facility] Work Phone: Urine culture Urine Culture [facility] Work Phone: End: 04-23-2025 XR Chest PA and Lateral XR CHEST 2V FRONTAL/LAT Radiology Routine Post-COVID chronic shortness of breath 1 Occurrences starting 03/24/2024 until 04/23/2025 [facility] Comment on above: 1 Occurrences starti ng 03/24/2024 until 04/23/2025 XR Chest PA and Lateral XR CHEST 2V FRONTAL/LAT Radiology Routine Post-COVID chronic shortness of breath 03/24/2024 3:39 PM EDT [facility] Immunizations Immunization Date Immunization Notes Care Provider Fa cility 07-25-2024 influenza virus vacc ine, unspecified formulation Nora Barton MD Work Phone: [facility] 07-20-2023 influenza, injectabl e, quadrivalent, preservative free Nora Barton MD Work Phone: [facility] 07-20-2023 pneumococcal conjuga te (PCV20) vaccine, 20 valent (PREVNAR 20) Michoacano Braga MD Work Phone: [facility] 07-20-2023 influenza virus vacc ine, unspecified formulation Michoacano Braga MD Work Phone: [facility] 07-22-2022 influenza, injectabl e, quadrivalent, preservative free Michoacano Braga MD Work Phone: [facility] Work Phone: 07-22-2022 influenza virus vacc ine, unspecified formulation Chaz Meyers MD Work Phone: [facility] T-ZONE 10-04-2021 Pfizer SARS-CoV-2 Vaccination Chaz Meyers MD Work Phone: [facility] 12-20-2020 COVID-19 vaccine, ag e 12+ yr (PFIZER-BIONTECH - PURPLE TOP) Michoacano Braga MD Work Phone: [facility] 11-29-2020 COVID-19 vaccine, ag e 12+ yr (PFIZER-BIONTECH - PURPLE TOP) Michoacano Braga MD Work Phone: [facility] 07-17-2020 pneumococcal polysaccharide vaccine, 23 valent Michoacano Braga MD Work Phone: [facility] 06-29-2020 influenza, injectabl e, quadrivalent, preservative free Michoacano Braga MD Work Phone: [facility] 06-07-2019 influenza, injectabl e, quadrivalent, contains preservative Michoacano Braga MD Work Phone: [facility] 05-15-2019 Influenza virus vaccine [facility] 05-15-2019 influenza, seasonal, injectable, preservative free Michoacano Braga MD Work Phone: [facility] 07-28-2018 influenza, injectabl e, quadrivalent, contains preservative Michoacano Braga MD Work Phone: [facility] 05-28-2018 tetanus toxoid, redu charlee diphtheria toxoid, and acellular pertussis vaccine, adsorbed Michoacano Braga MD Work Phone: [facility] 08-19-2017 influenza, injectabl e, quadrivalent, contains preservative Michoacano Braga MD Work Phone: [facility] 06-24-2016 zoster vaccine, live Michoacano combs MD Work Phone: [facility] 06-17-2016 influenza, seasonal, injectable Michoacano Braga MD Work Phone: [facility] 06-17-2016 pneumococcal conjuga te vaccine, 13 valent Michoacano Braga MD Work Phone: [facility] 07-17-2015 influenza, seasonal, injectable Michoacano Braga MD Work Phone: [facility] 06-23-2014 influenza, seasonal, injectable Michoacano Braga MD Work Phone: [facility] 09-14-2012 pneumococcal polysaccharide vaccine, 23 valent Michoacano Braga MD Work Phone: [facility] 07-15-2012 influenza, seasonal, injectable Michoacano Braga MD Work Phone: [facility] 10-11-2009 novel influenza-H1N1 -09, preservative-free, injectable Michoacano Braga MD Work Phone: [facility] 07-07-2006 influenza virus vacc ine, unspecified formulation Michoacano Braga MD Work Phone: [facility] Work Phone: 07-19-2005 influenza virus vacc ine, unspecified formulation Michoacano Braga MD Work Phone: [facility] Work Phone: Payers Date Payer Category Payer Self-pay [id number] 2021 Medicare O AETNA MEDICARE [id number] 2021 Medicare AETNA MEDICARE A ETNA MEDICARE PPO [id number] 2021-Present [phone] [address] [place] [address] [facility] [id number] 2021 Medicare [id number] 2021 Medicare (Managed Care) AETNA ME DICARE [id number] 2021 Private Health Insurance [place] [id number] 2020 Medicare [id number] 2020 Medicare [id number] 2019 Private Health Insurance AETNA A ETNA NAP CHOICE POS II xxxxxxxxxx 2019-Present [phone] [address] [place] [address] xxxxxxxxxx [id number] 2019 Private Health Insurance AETNA A ETNA NAP CHOICE POS II [id number] 2019-Present [phone] [address] [place] [address] [id number] 1956 Unknown [id number] 1956 Unknown [id number] 1956 Unknown [id number]. 1956 Unknown [id number]. 8 1956 Unknown [id number]. 8 Private Health Insurance Unknown [id number]. 462 Unknown [id number]. 462 Unknown [id number] 2.16.840.1.666556.3.579.2. 462 Unknown [id number] 2.16.840.1.327192.3.579.2. 462 Unknown [id number] 2.16.840.1.473993.3.579.2. 462 Unknown [id number] 2.16.840.1.457790.3.579.2. 462 Unknown [id number] [id number]. 462 Unknown [id number]. 462 Unknown [id number] [id number]. 462 Unknown [id number]. 462 Unknown [id number] [id number]. 462 Unknown [id number]. 462 Social History Date Type Detail Facility Start: 04-28-2019 End: 09-22-2022 Tobacco smoking status [facility] Never smoker [facility] Start: 04-28-2019 End: 10-12-2023 Alcohol intake Never [facility] Work Phone: Start: 12-22-2018 History SDOH Alcohol Frequency 1 [place], [place] Start: 1955 Sex Assigned At Not on file [place] Start: 10-15-2020 Tobacco use and exposure Never used [place] Start: 10-15-2020 End: 03-16-2025 Alcohol intake Lifetime non-drinker (finding) [facility] Work Phone: Start: 01-15-2021 End: 03-09-2023 [facility]-2 (event[facility] (event[facility] Start: 01-13-2022 End: 03-29-2025 Alcohol intake Current non-drinker of alcohol (finding) [facility] Start: 07-21-2021 End: 09-22-2022 Tobacco smoking status NHIS Unknown if ever smoked [facility] Start: 12-05-2019 None [facility] Start: 12-05-2019 Spouse/ Signif icant Other [facility] Start: 1955 Sex Assigned At Female [facility] Start: 09-02-2022 End: 10-12-2023 History of Social function [facility] Start: 08-15-2012 National Score (1-100), lower number is lower risk 52 [facility] Start: 04-14-2022 Sex Female (finding) [facility] Goals Date Patient Goal Desired Activity /State Functional Status Date Assessment Result Facility 09-23-2022 Functional status Ambulates [facility] Work Phone: 01-19-2015 Are you deaf, or do you have serious difficulty hearing No 01/19/2015 10:02 AM Jenni Gold Ma [facility] 01-19-2015 Are you blind, or do you have serious difficulty seeing, even when wearing glasses No 01/19/2015 10:02 AM Jenin Gold Ma [facility] 01-19-2015 Do you have serious difficulty walking or climbing stairs No 01/19/2015 10:02 AM Jenni Gold Ma [facility] 01-19-2015 Do you have difficul ty dressing or bathing No 01/19/2015 10:02 AM Jenni Gold Ma [facility] 01-19-2015 Because of a physica l, mental, or emotional condition, do you have difficulty doing errands alone such as visiting a physician's office or shopping No 01/19/2015 10:02 AM Jenni Gold Ma [facility] Mental Status Date Assessment Result Facility 09-23-2022 Cognitive function Voice/Name [facility] Work Phone: 01-19-2015 Because of a physica l, mental, or emotional condition, do you have serious difficulty concentrating, remembering, or making decisions No 01/19/2015 10:02 AM EDT [facility] Jenni Pardo [facility] Clinical Notes 08-23-2012 to 05-12-2025 Patient InstructionsRuNora lizama MD - 05/10/2025 11:16 AM EDTTelephone Encounter - Gema Seymour RN - 04/05/2025 10:50 AM TRUDITRNora kamara MD - 03/29/2025 9:28 AM EDT Note Date & Type Note Facility 05-12-2025 Radiology Diagnostic study note [facility] Imaging Services [address] [place] [address] Lumbar Spine 2 or 3 Views MR#: [id number] Acct: [id number] Name: JOI LONG Rep #: [id number] : [id number] F 70 From: Dung Kirkland MD PCP: Dr. Gregg Anton MD Status: REG CLI Study:Lumbar Spine 2 or 3 Views Date of Exam: 05/11/25 Exam# [id number] Ordering Dr: Jose Anton MD PROCEDURE: LUMBAR SPINE 2 OR 3 VIEWS 05/11/2025 REASON FOR EXAM: LEG PAIN AND WEAKNESS TECHNIQUE: LUMBAR SPINE 2 OR 3 VIEWS COMPARISON: None. RAD/Lumbar Spine 2 or 3 Views IMPRESSION: At least moderate arterial calcification is seen. Degenerative changes are seen throughout the visualized lower thoracic and lumbar spine. Lumbar levoscoliosis is centered about the L2-L3 level. Postsurgical changes including laminectomies from L3 through L4, with bilateral posterior bone graft from L3 through L5 also noted.. Disc narrowing is seen prominently from L1 through L4, with osseous reactive changes at each level. Posterior facet hypertrophy in the mid to lower lumbar spine also noted. No evidence of spondylolysis or spondylolisthesis. Minimal sacroiliac joint degenerative changes are noted. No acute fracture is seen. Reading Location: [place] [address] CC: Dr. Gregg Anton MD ~ Professor Of Environmental Studies: Signed [facility] 05-10-2025 Instructions Nora Barton MD - 05/10/2025 11:24 AM EDT Wean off of clotrimazole, use once a day for a week then stop. It can be used 1-2 times a day as needed for 7-10 days for flare ups or recurrences. Continue the Myrbetriq as prescribed Continue the vaginal estrogen as prescribed Use the clobetasol 1-2 times a week to keep the inflammation down. documented in this encounter [facility] 05-10-2025 Note HNO ID: [id number] Author: NORA BARTON MD Service: ? Author Type: Physician Type: Progress Notes Filed: 05/10/2025 11:59 Note Text: Joi Long is a 70 year old female who presents for problem visit for f/u vulvar irritation. HPI: 70 YOF w/ vulvar pruritus, improving. Using estrogen cream twice a week w/ digital application. Using clotrimazole bid. Myrbetriq helping, gets up 1 time a night rather than 2-3 and no burning. Feels she is getting empty. Finished keflex for + urine culture. OB History Gravida4 Para3 Term3 Preterm0 AB1 Living3 SAB1 IAB0 Ectopic0 Multiple0 Live Births0 Medication Manager History LMP: 07/04/2007, Hysterectomy Age at Menarche: Age at First : Age at Menopause: Medication Manager History Comments: Sexual Activity: Yes; Male; bilateral tubal ligation Contraception: Surgical PAST MEDICAL HISTORY Diagnosis Date Abnormal Papanicolaou smear of vagina and vaginal HPV Asthma (HCC) Breast cancer (HCC) 2019 left Diabetes mellitus (HCC) Fibromyalgia GERD (gastroesophageal reflux disease) HLD (hyperlipidemia) HTN (hypertension) Lichen sclerosus Mitral valve disorders(424.0) SUMA on CPAP resolved Other chest pain Other malaise and fatigue PMH - PAST MEDICAL HISTORY OF ELEVATED LIPIDS PMH - PAST MEDICAL HISTORY OF Irregular Heartbeat POTS (postural orthostatic tachycardia syndrome) Shortness of breath PAST SURGICAL HISTORY Procedure Laterality Date APPENDECTOMY BACK SURGERY HX 2000, 2004, 2005 spinal fusion BLADDER SURGERY HX 12/2015 adjust bladder sling BREAST LUMPECTOMY HX 12/2018 COLONOSCOPY 2008 COLPOSCOPY CERVIX UPPER/ADJACENT VAGINA 2002 ENDOMETRIAL BX W/WO ENDOCERVIX BX W/O DILAT SPX 2002 KNEE SURGERY HX 07/2021 LAP VAG HYST <=250 G RMV T/O 03/08/2015 LIG/TRNSXJ FLP TUBE ABDL/VAG APPR UNI/BI Tubal ligation S LEAD/SPINAL CORD STIM 11/2017 removal SPINAL CORD STIM PERCT SCS ELCT 2001 TONSILLECTOMY PRIMARY/SECONDARY Tonsillectomy FAMILY HISTORY Problem Relation Age of Onset Heart Mother Pace Maker/Irregular Heartbeat Hypertension Mother Heart Father Hypertension Father Lipids Father High Cholesterol Hypertension Brother SOCIAL HISTORY[1] Current Outpatient Medications Medication Sig ofloxacin (OCUFLOX) 0.3 % ophthalmic solution INSTILL 1 DROP INTO RIGHT EYE 4 TIMES DAILY 3 DAYS PRIOR TO SURGERY AND CONTINUING 4 TIMES DAILY AFTER SURGERY clotrimazole (LOTRIMIN) 1 % cream APPLY CREAM TOPICALLY TO AFFECTED AREA TWICE DAILY FOR 14 DAYS HUMALOG KWIKPEN INSULIN 100 unit/mL INJECT 8 UNITS SUBCUTANEOUSLY BEFORE BREAKFAST OR LUNCH, AND 4 UNITS BEFORE LAST MEAL. DEXCOM G7 SENSOR ricky CHANGE SENSOR EVERY 10 DAYS losartan (COZAAR) 50 mg tablet mirabegron (MYRBETRIQ) 50 mg Tb24 Take 1 tablet by mouth once daily. insulin glargine (LANTUS SOLOSTAR U-100 INSULIN) 100 unit/mL (3 mL) Inject subcutaneously. 12 units daily dapagliflozin propanediol (FARXIGA) 10 mg tablet Take 10 mg by mouth daily with breakfast. estradiol (ESTRACE) 0.01 % (0.1 mg/gram) vaginal cream Use 0.5 g vaginally two times a week. use small amount to vaginal opening twice weekly carvedilol (COREG) 6.25 mg tablet Take 6.25 mg by mouth. tamoxifen (NOLVADEX) 20 mg tablet Take 1 tablet by mouth once daily. ipratropium-albuterol (DUONEB) 0.5 mg-3 mg(2.5 mg base)/3 mL nebu Inhale 3 mL as instructed four times daily. doxepin capsule 25 mg Take 25 mg by mouth daily at bedtime. budesonide-formoterol (SYMBICORT) 160-4.5 mcg/actuation inhaler Inhale 2 Puffs as instructed twice daily. semaglutide (OZEMPIC) 0.25 mg or 0.5 mg(2 mg/1.5 mL) pnij Inject 0.25 mg subcutaneously one time a week. DULoxetine (CYMBALTA) 60 mg capsule Take 60 mg by mouth every morning. MEDICATION, NON-DATABASE Take 1 Each by mouth once daily. Slim MEDICATION, NON-DATABASE Take 2 capsules by mouth daily at bedtime. Biocleanse THERAPEUTIC MULTIVITAMIN TAB Take one(1) tablet daily. mirabegron (MYRBETRIQ) 50 mg Tb24 Take 1 tablet by mouth once daily. Patient should start on May 08, 2025. clobetasol (TEMOVATE) 0.05 % cream APPLY 1/4 OF A GRAM TO GENITALIA TWICE DAILY DIRECTED (Patient not taking: Reported on 05/10/2025) budesonide-formoterol (SYMBICORT) 160-4.5 mcg/actuation inhaler Inhale 2 Puffs as instructed two times a day. No current facility-administered medications for this visit. Allergies As of Date: 05/10/2025 Allergen Noted Reaction STEROIDS [CORTICOSTEROIDS (GLUCOC*04/07/2024 Rash MORPHINE 08/28/2005 Rash METFORMIN 04/07/2024 Diarrhea RAMIPRIL 04/07/2024 Cough ZESTORETIC [LISINOPRIL-HYDROCHLOR* Rash and Cough Fully Assessed 03/29/2025 Allergies and current medication updated:Yes SENSITIVE EXAM: The sensitive examination was discussed with the Patient or Patient's Authorized Public Transportation Inspector. As applicable, any other physician, advance practice provider, medical student, or other health professional student that will be obse (more content not included)... [facility] 05-10-2025 History of Presen t illness Narrative Joi Long is a 70 year old female who presents for problem visit for f/u vulvar irritation. HPI: 70 YOF w/ vulvar pruritus, improving. Using estrogen cream twice a week w/ digital application. Using clotrimazole bid. Myrbetriq helping, gets up 1 time a night rather than 2-3 and no burning. Feels she is getting empty. Finished keflex for + urine culture. OB History Gravida4 Para3 Term3 Preterm0 AB1 Living3 SAB1 IAB0 Ectopic0 Multiple0 Live Births0 Medication Manager History LMP: 07/04/2007, Hysterectomy Age at Menarche: Age at First : Age at Menopause: Medication Manager History Comments: Sexual Activity: Yes; Male; bilateral tubal ligation Contraception: Surgical PAST MEDICAL HISTORY Diagnosis Date Abnormal Papanicolaou smear of vagina and vaginal HPV Asthma (HCC) Breast cancer (HCC) 2019 left Diabetes mellitus (HCC) Fibromyalgia GERD (gastroesophageal reflux disease) HLD (hyperlipidemia) HTN (hypertension) Lichen sclerosus Mitral valve disorders(424.0) SUMA on CPAP resolved Other chest pain Other malaise and fatigue PMH - PAST MEDICAL HISTORY OF ELEVATED LIPIDS PMH - PAST MEDICAL HISTORY OF Irregular Heartbeat POTS (postural orthostatic tachycardia syndrome) Shortness of breath PAST SURGICAL HISTORY Procedure Laterality Date APPENDECTOMY BACK SURGERY HX 2000, 2003, 2004 spinal fusion BLADDER SURGERY HX 12/2015 adjust bladder sling BREAST LUMPECTOMY HX 12/2018 COLONOSCOPY 2008 COLPOSCOPY CERVIX UPPER/ADJACENT VAGINA 2002 ENDOMETRIAL BX W/WO ENDOCERVIX BX W/O DILAT SPX 2002 KNEE SURGERY HX 07/2021 LAP VAG HYST <=250 G RMV T/O 03/08/2015 LIG/TRNSXJ FLP TUBE ABDL/VAG APPR UNI/BI Tubal ligation S LEAD/SPINAL CORD STIM 11/2017 removal SPINAL CORD STIM PERCT SCS ELCT 2002 TONSILLECTOMY PRIMARY/SECONDARY <AGE 13 Tonsillectomy FAMILY HISTORY Problem Relation Age of Onset Heart Mother Pace Maker/Irregular Heartbeat Hypertension Mother Heart Father Hypertension Father Lipids Father High Cholesterol Hypertension Brother SOCIAL HISTORY[1] Current Outpatient Medications Medication Sig ofloxacin (OCUFLOX) 0.3 % ophthalmic solution INSTILL 1 DROP INTO RIGHT EYE 4 TIMES DAILY 3 DAYS PRIOR TO SURGERY AND CONTINUING 4 TIMES DAILY AFTER SURGERY clotrimazole (LOTRIMIN) 1 % cream APPLY CREAM TOPICALLY TO AFFECTED AREA TWICE DAILY FOR 14 DAYS HUMALOG KWIKPEN INSULIN 100 unit/mL INJECT 8 UNITS SUBCUTANEOUSLY BEFORE BREAKFAST OR LUNCH, AND 4 UNITS BEFORE LAST MEAL. DEXCOM G7 SENSOR ricky CHANGE SENSOR EVERY 10 DAYS losartan (COZAAR) 50 mg tablet mirabegron (MYRBETRIQ) 50 mg Tb24 Take 1 tablet by mouth once daily. insulin glargine (LANTUS SOLOSTAR U-100 INSULIN) 100 unit/mL (3 mL) Inject subcutaneously. 12 units daily dapagliflozin propanediol (FARXIGA) 10 mg tablet Take 10 mg by mouth daily with breakfast. estradiol (ESTRACE) 0.01 % (0.1 mg/gram) vaginal cream Use 0.5 g vaginally two times a week. use small amount to vaginal opening twice weekly carvedilol (COREG) 6.25 mg tablet Take 6.25 mg by mouth. tamoxifen (NOLVADEX) 20 mg tablet Take 1 tablet by mouth once daily. ipratropium-albuterol (DUONEB) 0.5 mg-3 mg(2.5 mg base)/3 mL nebu Inhale 3 mL as instructed four times daily. doxepin capsule 25 mg Take 25 mg by mouth daily at bedtime. budesonide-formoterol (SYMBICORT) 160-4.5 mcg/actuation inhaler Inhale 2 Puffs as instructed twice daily. semaglutide (OZEMPIC) 0.25 mg or 0.5 mg(2 mg/1.5 mL) pnij Inject 0.25 mg subcutaneously one time a week. DULoxetine (CYMBALTA) 60 mg capsule Take 60 mg by mouth every morning. MEDICATION, NON-DATABASE Take 1 Each by mouth once daily. Slim MEDICATION, NON-DATABASE Take 2 capsules by mouth daily at bedtime. Biocleanse THERAPEUTIC MULTIVITAMIN TAB Take one(1) tablet daily. mirabegron (MYRBETRIQ) 50 mg Tb24 Take 1 tablet by mouth once daily. Patient should start on May 08, 2025. clobetasol (TEMOVATE) 0.05 % cream APPLY 1/4 OF A GRAM TO GENITALIA TWICE DAILY DIRECTED (Patient not taking: Reported on 05/10/2025) budesonide-formoterol (SYMBICORT) 160-4.5 mcg/actuation inhaler Inhale 2 Puffs as instructed two times a day. No current facility-administered medications for this visit. Allergies As of Date: 05/10/2025 Allergen Noted Reaction STEROIDS [CORTICOSTEROIDS (GLUCOC*04/07/2024 Rash MORPHINE 08/28/2005 Rash METFORMIN 04/07/2024 Diarrhea RAMIPRIL 04/07/2024 Cough ZESTORETIC [LISINOPRIL-HYDROCHLOR* Rash and Cough Fully Assessed 03/29/2025 Allergies and current medication updated:Yes SENSITIVE EXAM: The sensitive examination was discussed with the Patient or Patient's Authorized Public Transportation Inspector. As applicable, any other physician, advance practice provider, medical student, or other health professional student that will be observing or involved in the sensitive examination for educational or training purposes was discussed with the Patient or Authorized Public Transportation Inspector. The Patient or Authorized Public Transportation Inspector has agreed to proceed with the sensitive examination. (Sensitive examination includes inspection and/or palpation of the breasts, pelvis, prostate and anorectal regions). EXAM: BP 124/62 Wt 159 lb (72.1kg) LMP 07/04/2007 GENERAL: pleasant, female in no apparent distress PELVIC: ormal Bartholin's glands, urethra, Juncos's glands, no vulvar lesions, good vaginal support, physiologic discharge present, normal appearing perineal body and perianal region, cervix surgically absent, cystocele 1st degree, less erythema of vulva and perianal area diffusely, no ulcerations or hyperpigmentation, previously noted fissures resolved, ASSESSMENT AND PLAN: Assessment & Plan Urinary urgency cont. myrbetriq, bacturia treated, no uti symptoms now Skin yeast infection Wean off of clotrimazole, use once a day for a week then stop. It can be used 1-2 times a day as needed for 7-10 days for flare ups or recurrences. Medication Manager skin hygiene reviewed Postmenopausal atrophic vaginitis cont. estrogen cream Nora Barton MD Medical Decision Making: Problems: Moderate: 2+ stable chronic illnesses Risk: Low: Low risk from testing/treatment Medical Decision Making Level: 3 - Low [1] Social History Tobacco Use Smoking status: Never Smokeless tobacco: Never Vaping Use Vaping status: Never Used Substance Use Topics Alcohol use: No Drug use: No documented in this encounter [facility] 04-05-2025 Telephone encounter Note Left VM, per Dr. Miller reminded patient tamoxifen therapy will complete in October 2025 and to stop at this time. Left call back number if questions. [facility] 04-05-2025 Miscellaneous Notes Left RUFINA, per Dr. Miller reminded patient tamoxifen therapy will complete in October 2025 and to stop at this time. Left call back number if questions. documented in this encounter [facility] 03-29-2025 Note HNO ID: [id number] Author: NORA BARTON MD Service: ? Author Type: Physician Type: Progress Notes Filed: 03/29/2025 10:10 Note Text: Joi Long is a 70 year old female who presents for problem visit for f/u urinary urgency and lichen sclerosis.. HPI: Not a lot of incontinence but some urgency. Myrbetrtiq is helping but still bothersome at night. Tries to put feet up before bed and limit fluids after dinner. Using estrogen cream and clobetasol but still some irritation w/ the lichen sclerosis. 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 Lots of pruritus, saadia. in the heat OB History Gravida4 Para3 Term3 Preterm0 AB1 Living3 SAB1 IAB0 Ectopic0 Multiple0 Live Births0 Medication Manager History LMP: 07/04/2007, Hysterectomy Age at Menarche: Age at First : Age at Menopause: Medication Manager History Comments: Sexual Activity: Yes; Male; bilateral tubal ligation Contraception: Surgical PAST MEDICAL HISTORY Diagnosis Date Abnormal Papanicolaou smear of vagina and vaginal HPV Asthma (HCC) Breast cancer (HCC) 2019 left Diabetes mellitus (HCC) Fibromyalgia GERD (gastroesophageal reflux disease) HLD (hyperlipidemia) HTN (hypertension) Lichen sclerosus Mitral valve disorders(424.0) SUMA on CPAP resolved Other chest pain Other malaise and fatigue PMH - PAST MEDICAL HISTORY OF ELEVATED LIPIDS PMH - PAST MEDICAL HISTORY OF Irregular Heartbeat POTS (postural orthostatic tachycardia syndrome) Shortness of breath PAST SURGICAL HISTORY Procedure Laterality Date APPENDECTOMY BACK SURGERY HX 2001, 2004, 2005 spinal fusion BLADDER SURGERY HX 12/2015 adjust bladder sling BREAST LUMPECTOMY HX 12/2018 COLONOSCOPY 2008 COLPOSCOPY CERVIX UPPER/ADJACENT VAGINA 2003 ENDOMETRIAL BX W/WO ENDOCERVIX BX W/O DILAT SPX 2003 KNEE SURGERY HX 07/2021 LAP VAG HYST <=250 G RMV T/O 03/08/2015 LIG/TRNSXJ FLP TUBE ABDL/VAG APPR UNI/BI Tubal ligation S LEAD/SPINAL CORD STIM 11/2017 removal SPINAL CORD STIM PERCT SCS ELCT 2002 TONSILLECTOMY PRIMARY/SECONDARY Tonsillectomy FAMILY HISTORY Problem Relation Age of Onset Heart Mother Pace Maker/Irregular Heartbeat Hypertension Mother Heart Father Hypertension Father Lipids Father High Cholesterol Hypertension Brother Social History Tobacco Use Smoking status: Never Smokeless tobacco: Never Vaping Use Vaping status: Never Used Substance Use Topics Alcohol use: No Drug use: No Current Outpatient Medications Medication Sig HUMALOG KWIKPEN INSULIN 100 unit/mL INJECT 8 UNITS SUBCUTANEOUSLY BEFORE BREAKFAST OR LUNCH, AND 4 UNITS BEFORE LAST MEAL. DEXCOM G7 SENSOR ricky CHANGE SENSOR EVERY 10 DAYS losartan (COZAAR) 50 mg tablet mirabegron (MYRBETRIQ) 25 mg Tb24 Take 1 tablet by mouth once daily. clobetasol (TEMOVATE) 0.05 % cream APPLY 1/4 OF A GRAM TO GENITALIA TWICE DAILY DIRECTED insulin glargine (LANTUS SOLOSTAR U-100 INSULIN) 100 unit/mL (3 mL) Inject subcutaneously. 12 units daily dapagliflozin propanediol (FARXIGA) 10 mg tablet Take 10 mg by mouth daily with breakfast. estradiol (ESTRACE) 0.01 % (0.1 mg/gram) vaginal cream Use 0.5 g vaginally two times a week. use small amount to vaginal opening twice weekly budesonide-formoterol (SYMBICORT) 160-4.5 mcg/actuation inhaler Inhale 2 Puffs as instructed two times a day. carvedilol (COREG) 6.25 mg tablet Take 6.25 mg by mouth. tamoxifen (NOLVADEX) 20 mg tablet Take 1 tablet by mouth once daily. doxepin capsule 25 mg Take 25 mg by mouth daily at bedtime. budesonide-formoterol (SYMBICORT) 160-4.5 mcg/actuation inhaler Inhale 2 Puffs as instructed twice daily. semaglutide (OZEMPIC) 0.25 mg or 0.5 mg(2 mg/1.5 mL) pnij Inject 0.25 mg subcutaneously one time a week. DULoxetine (CYMBALTA) 60 mg capsule Take 60 mg by mouth every morning. MEDICATION, NON-DATABASE Take 1 Each by mouth once daily. Slim MEDICATION, NON-DATABASE Take 2 capsules by mouth daily at bedtime. Biocleanse THERAPEUTIC MULTIVITAMIN TAB Take one(1) tablet daily. montelukast (SINGULAIR) 10 mg tablet Take 1 tablet by mouth once daily. (Patient not taking: Reported on 03/29/2025) ipratropium-albuterol (DUONEB) 0.5 mg-3 mg(2.5 mg base)/3 mL nebu Inhale 3 mL as instructed four times daily. No current facility-administered medications for this visit. Allergies As of Date: 03/29/2025 Allergen Noted Reaction STEROIDS [CORTICOSTEROIDS (GLUCOC*04/07/2024 Rash MORPHINE 08/28/2005 Rash METFORMIN 04/07/2024 Diarrhea RAMIPRIL 04/07/2024 Cough ZESTORETIC [LISINOPRIL-HYDROCHLOR* Rash and Cough Fully Assessed 03/29/2025 REVIEW OF SYSTEMS Abdomen: No bloating, early satiety, indigestion, or increased flatulence. No abdominal pain, nausea, vomiting, diarrhea, or constipation. Bladder: No dysuria or hematuria, no feeling of incomplete emptying, some leaking w/ cough/sneeze. Breast: No breast lumps, nipple d/c, overlying skin changes, redness or skin retraction. Expanded ROS: N/ (more content not included)... [facility] 03-29-2025 History of Presen t illness Narrative Joi Long is a 70 year old female who presents for problem visit for f/u urinary urgency and lichen sclerosis.. HPI: Not a lot of incontinence but some urgency. Myrbetrtiq is helping but still bothersome at night. Tries to put feet up before bed and limit fluids after dinner. Using estrogen cream and clobetasol but still some irritation w/ the lichen sclerosis. 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 Lots of pruritus, saadia. in the heat OB History Gravida4 Para3 Term3 Preterm0 AB1 Living3 SAB1 IAB0 Ectopic0 Multiple0 Live Births0 Medication Manager History LMP: 07/04/2007, Hysterectomy Age at Menarche: Age at First : Age at Menopause: Medication Manager History Comments: Sexual Activity: Yes; Male; bilateral tubal ligation Contraception: Surgical PAST MEDICAL HISTORY Diagnosis Date Abnormal Papanicolaou smear of vagina and vaginal HPV Asthma (HCC) Breast cancer (HCC) 2019 left Diabetes mellitus (HCC) Fibromyalgia GERD (gastroesophageal reflux disease) HLD (hyperlipidemia) HTN (hypertension) Lichen sclerosus Mitral valve disorders(424.0) SUMA on CPAP resolved Other chest pain Other malaise and fatigue PMH - PAST MEDICAL HISTORY OF ELEVATED LIPIDS PMH - PAST MEDICAL HISTORY OF Irregular Heartbeat POTS (postural orthostatic tachycardia syndrome) Shortness of breath PAST SURGICAL HISTORY Procedure Laterality Date APPENDECTOMY BACK SURGERY HX 2000, 2003, 2005 spinal fusion BLADDER SURGERY HX 12/2015 adjust bladder sling BREAST LUMPECTOMY HX 12/2018 COLONOSCOPY 2008 COLPOSCOPY CERVIX UPPER/ADJACENT VAGINA 2002 ENDOMETRIAL BX W/WO ENDOCERVIX BX W/O DILAT SPX 2002 KNEE SURGERY HX 07/2021 LAP VAG HYST <=250 G RMV T/O 03/08/2015 LIG/TRNSXJ FLP TUBE ABDL/VAG APPR UNI/BI Tubal ligation S LEAD/SPINAL CORD STIM 11/2017 removal SPINAL CORD STIM PERCT SCS ELCT 2002 TONSILLECTOMY PRIMARY/SECONDARY <AGE 13 Tonsillectomy FAMILY HISTORY Problem Relation Age of Onset Heart Mother Pace Maker/Irregular Heartbeat Hypertension Mother Heart Father Hypertension Father Lipids Father High Cholesterol Hypertension Brother Social History Tobacco Use Smoking status: Never Smokeless tobacco: Never Vaping Use Vaping status: Never Used Substance Use Topics Alcohol use: No Drug use: No Current Outpatient Medications Medication Sig HUMALOG KWIKPEN INSULIN 100 unit/mL INJECT 8 UNITS SUBCUTANEOUSLY BEFORE BREAKFAST OR LUNCH, AND 4 UNITS BEFORE LAST MEAL. DEXCOM G7 SENSOR ricky CHANGE SENSOR EVERY 10 DAYS losartan (COZAAR) 50 mg tablet mirabegron (MYRBETRIQ) 25 mg Tb24 Take 1 tablet by mouth once daily. clobetasol (TEMOVATE) 0.05 % cream APPLY 1/4 OF A GRAM TO GENITALIA TWICE DAILY DIRECTED insulin glargine (LANTUS SOLOSTAR U-100 INSULIN) 100 unit/mL (3 mL) Inject subcutaneously. 12 units daily dapagliflozin propanediol (FARXIGA) 10 mg tablet Take 10 mg by mouth daily with breakfast. estradiol (ESTRACE) 0.01 % (0.1 mg/gram) vaginal cream Use 0.5 g vaginally two times a week. use small amount to vaginal opening twice weekly budesonide-formoterol (SYMBICORT) 160-4.5 mcg/actuation inhaler Inhale 2 Puffs as instructed two times a day. carvedilol (COREG) 6.25 mg tablet Take 6.25 mg by mouth. tamoxifen (NOLVADEX) 20 mg tablet Take 1 tablet by mouth once daily. doxepin capsule 25 mg Take 25 mg by mouth daily at bedtime. budesonide-formoterol (SYMBICORT) 160-4.5 mcg/actuation inhaler Inhale 2 Puffs as instructed twice daily. semaglutide (OZEMPIC) 0.25 mg or 0.5 mg(2 mg/1.5 mL) pnij Inject 0.25 mg subcutaneously one time a week. DULoxetine (CYMBALTA) 60 mg capsule Take 60 mg by mouth every morning. MEDICATION, NON-DATABASE Take 1 Each by mouth once daily. Slim MEDICATION, NON-DATABASE Take 2 capsules by mouth daily at bedtime. Biocleanse THERAPEUTIC MULTIVITAMIN TAB Take one(1) tablet daily. montelukast (SINGULAIR) 10 mg tablet Take 1 tablet by mouth once daily. (Patient not taking: Reported on 03/29/2025) ipratropium-albuterol (DUONEB) 0.5 mg-3 mg(2.5 mg base)/3 mL nebu Inhale 3 mL as instructed four times daily. No current facility-administered medications for this visit. Allergies As of Date: 03/29/2025 Allergen Noted Reaction STEROIDS [CORTICOSTEROIDS (GLUCOC*04/07/2024 Rash MORPHINE 08/28/2005 Rash METFORMIN 04/07/2024 Diarrhea RAMIPRIL 04/07/2024 Cough ZESTORETIC [LISINOPRIL-HYDROCHLOR* Rash and Cough Fully Assessed 03/29/2025 REVIEW OF SYSTEMS Abdomen: No bloating, early satiety, indigestion, or increased flatulence. No abdominal pain, nausea, vomiting, diarrhea, or constipation. Bladder: No dysuria or hematuria, no feeling of incomplete emptying, some leaking w/ cough/sneeze. Breast: No breast lumps, nipple d/c, overlying skin changes, redness or skin retraction. Expanded ROS: N/A Allergies and current medication updated:Yes SENSITIVE EXAM: The sensitive examination was discussed with the Patient or Patient's Authorized Public Transportation Inspector. As applicable, any other physician, advance practice provider, medical student, or other health professional student that will be observing or involved in the sensitive examination for educational or training purposes was discussed with the Patient or Authorized Public Transportation Inspector. The Patient or Authorized Public Transportation Inspector has agreed to proceed with the sensitive examination. (Sensitive examination includes inspection and/or palpation of the breasts, pelvis, prostate and anorectal regions). EXAM: BP 126/82 Ht 5' 3.5 (1.61m) Wt 159 lb (72.1kg) LMP 07/04/2007 BMI 27.72 kg/(m^2). GENERAL: pleasant, female in no apparent distress HEENT: Normocephalic, atraumatic, mucus membranes moist, and no lesions NECK: Supple, full range of motion, no adenopathy, and thyroid normal DERMATOLOGY: Normal, without lesions, non-icteric, and non-hirsute BREAST: soft, non-tender, symmetric, no dominant mass, normal nipple-areolar complex, no lymphadenopathy, and no nipple discharge, diffusely dense CHEST: Normal inspiratory effort ABDOMEN: soft, non-tender, and no masses PELVIC: normal Bartholin's glands, urethra, Juncos's glands, no vulvar lesions, good vaginal support, physiologic discharge present, normal appearing perineal body and perianal region, cervix surgically absent, cystocele 1st degree, erythema of vulva and perianal area diffusely, no ulcerations or hyperpigmentation, some mild fissuring at periclitoral cox BIMANUAL: no adnexal masses, non-tender, and uterus surgically absent ASSESSMENT AND PLAN: Assessment & Plan Lichen sclerosus et atrophicus reviewed biopsy, not c/w lichen scelorosis, more chronic inflammation and yeast. Stop clobetasol, keep using estrogen Urinary urgency d/w her trial increased dose myrbetriq, desires trial of this Skin yeast infection diflucan and clotrimazole f/u in 6-8 weeks Nora Barton MD documented in this encounter [facility] 03-16-2025 History of Presen t illness Narrative We want to inform you that your patient's blood pressure was noted to be elevated in our office today. We thank you for trusting us with your patient's health. Last BP: BP Readings from Last 1 Encounters: 03/16/25 1313 (!) 157/85 03/16/25 1307 (!) 161/74 Hematology/Oncology History: DCIS (stage 0, TisNxMx, G2, ER 80, RI 50) of left breast status post lumpectomy and sentinel lymph node dissection on 12/27/2018. Margin greater than 2.2 mm. Completed adjuvant radiation end of March 2019. Initiated adjuvant anastrozole end of June 2019. Held October 2019 due to chronic headaches of unclear etiology. Headaches did not improve off anastrozole. Developed Covid 19 infection in spring and delayed restarting anastrozole until February 2020. Due to bone/joint pain and weight gain associated with anastrozole, switched to tamoxifen October 2020. Other PMHx 1. DM 2. Asthma 3. GERD 4. MVP 5. OA, back surgery x 3 6. Hysterectomy and BSO 2016 7. Appy 8. HTN 9. Depression Social History Social History Tobacco Use Smoking status: Never Smokeless tobacco: Never Vaping Use Vaping status: Never Used Substance Use Topics Alcohol use: Never Drug use: Never Family History MGF - prostate CA PGM - leukemia Interval History: Feeling well overall and denies significant side effects on tamoxifen. Denies new breast lesions or masses. Physical Exam: Vitals reviewed Alert, NAD, ecog 0 No LAD in neck, axilla Bilateral breast without mass or lymphadenopathy. Imaging/Labs: Mammogram February 2025 benign Assessment/Plan: 70 y.o. 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 Margin greater than 2.2 mm. Completed adjuvant radiation end of March 2019. Initiated adjuvant anastrozole June 2019 but held from October 2019 through February 2020 due to headaches and Covid 19 infection. Due to bone/joint pain and weight gain associated with anastrozole, switched to tamoxifen October 2020. She will be completing 5 years of tamoxifen therapy October 2025 and advised to stop at that time. 5 years of adjuvant tamoxifen therapy is appropriate in the setting of DCIS. Median five-year breast cancer specific overall survival greater than 97%. Have encouraged physical activity, healthy diet, limiting alcohol intake, maintaining healthy body weight. Annual surveillance mammography next due February 2026. She will continue follow-up with primary care going forth for annual mammography/exam. I am available should questions or concerns arise. There are no other issues with medication compliance, stressors, depression, side effects of therapy other than as noted above. Discussion congruent with NCCN guidelines if applicable. she consents to treatment. Shared decision making was performed. documented in this encounter [facility] 05-25-2024 Telephone encounter Note Pt called wanting Dr. Braga to know that she was wearing an extended holter monitor. She changed the adhesive and could not get the sensor to go back. Essentially, she only wore it for 4 days. She wants to know if this is sufficient or if she needs to have it again. [facility] 05-25-2024 Miscellaneous Notes Pt called wanting Dr. Braga to know that she was wearing an extended holter monitor. She changed the adhesive and could not get the sensor to go back. Essentially, she only wore it for 4 days. She wants to know if this is sufficient or if she needs to have it again. documented in this encounter [facility] 05-20-2024 Instructions Formatting of th is note might be different from the original. Patient educated on 7 day patch monitor, and verbalizes understanding. [facility] 05-20-2024 Miscellaneous Notes Patient educated on 7 day patch monitor, and verbalizes understanding. documented in this encounter [facility] 05-20-2024 Note HNO ID: [id number] Author: LAUIR SAMUELS RN Service: ? Author Type: Registered Nurse Type: Patient Education Filed: 05/20/2024 15:45 Note Text: Patient educated on 7 day patch monitor, and verbalizes understanding. [facility] 05-17-2024 Telephone encounter Note Patient has been identified by name and date of : Yes, Provider Dr. Braga Date 05/17/2024 Time 1030 Type of form: Surgical Clearance and Form received via: Fax When form is completed, fax form to fax number provided. Form has been forwarded to: Provider's mailbox. Provider name: Dr. Bandar Rizzo [facility] 05-17-2024 Miscellaneous Notes Patient has been identified by name and date of : Yes, Provider Dr. Braga Date 05/17/2024 Time 1030 Type of form: Surgical Clearance and Form received via: Fax When form is completed, fax form to fax number provided. Form has been forwarded to: Provider's mailbox. Provider name: Dr. Bandar Rizzo documented in this encounter [facility] 05-12-2024 History of Presen t illness Narrative Images from the original note were not included. . Pulmonary Clinic Follow-up Note Patient Name: Joi Long PRIMARY CARE PHYSICIAN: Gregg Anton MD Date of visit: 05/12/2024 COMMUNICATION WILL BE SENT VIA SHARED MEDICAL RECORDS OR US MAIL. HISTORY OF PRESENT ILLNESS: Joi Long is a 69 year old female, Here today for F/U asthma. She also has a history of SUMA but intolerant to CPAP. She is on Symbicort 160mcg 2 puffs BID, Spiriva Respimat and montelukast. She came down with COVID 01 December 2019. She needed to be admitted for 4 days at [facility]. She had prolonged long CIVID symptoms of chronic fatigue and chronic SOB. JUDI 03/24/2024 ACT score was 18. She had COVID in November 2019. Since that time she has been more short of breath than usual. That last office visit her MALMO score was 50 (Score > 42 could suggest possible POTs) and her Nijmegen score was 23 (score of >23 suggest possible diagnosis of hyperventilation syndrome) Last office visit I ordered an ECHO, CXR, PFT, NT proBNP and CBC for further evaluation of ongoing post-COVID shortness of breath. CC is ongoing SOB. She was SOB walking into the building from the parking lot and she had a parking spot spot close to the building. Sometimes she has a cough too. She also has chronic fatigue and brain fog since COVID. Since having COVID she sometimes feels like her heart is racing. . ASTHMA CONTROL TEST Date: 05/11/2024 In the last 4 weeks, how much of the time did your asthma keep you from getting as much done at work or home that you wanted to do? None of the time (5) In the last 4 weeks, how often have you had shortness of breath? More than once per day (1) In the last 4 weeks, how often did your asthma symptoms (wheezing, coughing, shortness of breath, chest tightness or pain) wake you up at night or earlier than usual? Not at all (5) In the last 4 weeks, how often have you used your rescue inhaler or nebulizer medication (such as Albuterol, Proventil, Ventolin, Maxair, Xoponex, or Primatene Mist)? Not at all (5) In the last 4 weeks, how would you rate your asthma control? Well controlled (4) Total: 20 10/21/2022: 20 01/13/2022: 25 07/04/21: 18 06/04/2021 total: 13 05/02/2021: 21 12/07/2020: 17 PAST MEDICAL HISTORY No date: Abnormal Papanicolaou smear of vagina and vaginal HPV No date: Asthma No date: Breast cancer (HCC) Comment: left No date: Fibromyalgia No date: GERD (gastroesophageal reflux disease) No date: HLD (hyperlipidemia) No date: HTN (hypertension) No date: Lichen sclerosus No date: Mitral valve disorders(424.0) No date: SUMA on CPAP Comment: resolved No date: Other chest pain No date: Other malaise and fatigue No date: PMH - PAST MEDICAL HISTORY OF Comment: ELEVATED LIPIDS No date: PMH - PAST MEDICAL HISTORY OF Comment: Irregular Heartbeat No date: POTS (postural orthostatic tachycardia syndrome) No date: Shortness of breath PAST SURGICAL HISTORY No date: APPENDECTOMY 2000, 2003, 2005: BACK SURGERY HX Comment: spinal fusion 12/2015: BLADDER SURGERY HX Comment: adjust bladder sling 12/2018: BREAST LUMPECTOMY HX 2007: COLONOSCOPY 2003: COLPOSCOPY CERVIX UPPER/ADJACENT VAGINA 2003: ENDOMETRIAL BX W/WO ENDOCERVIX BX W/O DILAT SPX 07/2021: KNEE SURGERY HX 03/08/2015: LAP VAG HYST <=250 G RMV T/O No date: LIG/TRNSXJ FLP TUBE ABDL/VAG APPR UNI/BI Comment: Tubal ligation 11/2017: S LEAD/SPINAL CORD STIM Comment: removal 2001: SPINAL CORD STIM PERCT SCS ELCT No date: TONSILLECTOMY PRIMARY/SECONDARY <AGE 12 Comment: Tonsillectomy MEDICATIONS: mirabegron (MYRBETRIQ) 25 mg Tb24 Take 1 tablet by mouth once daily. clobetasol (TEMOVATE) 0.05 % cream APPLY 1/4 OF A GRAM TO GENITALIA TWICE DAILY DIRECTED insulin glargine (LANTUS SOLOSTAR U-100 INSULIN) 100 unit/mL (3 mL) Inject subcutaneously. 12 units daily dapagliflozin propanediol (FARXIGA) 10 mg tablet Take 10 mg by mouth daily with breakfast. estradiol (ESTRACE) 0.01 % (0.1 mg/gram) vaginal cream Use 0.5 g vaginally two times a week. use small amount to vaginal opening twice weekly budesonide-formoterol (SYMBICORT) 160-4.5 mcg/actuation inhaler Inhale 2 Puffs as instructed two times a day. carvedilol (COREG) 6.25 mg tablet Take 6.25 mg by mouth. montelukast (SINGULAIR) 10 mg tablet Take 1 tablet by mouth once daily. tamoxifen (NOLVADEX) 20 mg tablet Take 1 tablet by mouth once daily. ipratropium-albuterol (DUONEB) 0.5 mg-3 mg(2.5 mg base)/3 mL nebu Inhale 3 mL as instructed four times daily. doxepin capsule 25 mg Take 25 mg by mouth daily at bedtime. glimepiride (AMARYL) 4 mg tablet Take 4 mg by mouth daily with breakfast. 4 mg in am 2 mg in pm budesonide-formoterol (SYMBICORT) 160-4.5 mcg/actuation inhaler Inhale 2 Puffs as instructed twice daily. semaglutide (OZEMPIC) 0.25 mg or 0.5 mg(2 mg/1.5 mL) pnij Inject 0.25 mg subcutaneously one time a week. DULoxetine (CYMBALTA) 60 mg capsule Take 60 mg by mouth every morning. MEDICATION, NON-DATABASE Take 1 Each by mouth once daily. Slim MEDICATION, NON-DATABASE Take 2 capsules by mouth daily at bedtime. Biocleanse THERAPEUTIC MULTIVITAMIN TAB Take one(1) tablet daily. Allergies: Steroids [Corticosteroids (Glucocorticoids)], Morphine, Metformin, Ramipril, and Zestoretic [Lisinopril-Hydrochlorothiazide] ROS: GENERAL: no fevers, chills, night sweats, nausea/vomiting, change in appetite or weight changes. +fatigue HEENT: no headache, visual changes. NECK: no swelling in neck noted RESPIRATORY: SEE HPI CARDIOVASCULAR: no chest pain GI: no pain or difficulty with swallowing, no abdominal pain, diarrhea or constipation. : No c/o dysuria, hematuria, frequency or incontinence MUSCULOSKELETAL: Negative for joint pain or swelling, back pain or muscle pain. SKIN: Negative for lesions, rash, and itching. HEMATOLOGY/LYMPHOLOGY No C/O for prolonged bleeding, bruising easily or swollen nodes. ENDOCRINE: Negative for cold or heat intolerance, polyuria, polydipsia and goiter. NEURO: + lightheadedness. + brain fog. Sometimes gets numbness in her right side. PHYSICAL EXAM: BP 139/75 Pulse 88 Temp 36.8 C (98.2 F) Resp 16 Ht 162.6 cm (5' 4) Wt 75.8 kg (167 lb) LMP 07/04/2007 SpO2 99% BMI 28.67 kg/m General- nad, comfortable Eyes- eomi, perrl ENT- mmm, oropharynx clear Neck- supple, no JVD CV- RRR Resp- clear to auscultation bilaterally, no wheezes or crackles, breathing nonlabored Abd- soft, nt, nd Ext- no clubbing, cyanosis, or edema Neuro- normal gait, no focal deficits Lymphatics - no supraclavicular or cervical lymphadenopathy Derm- no lesions/rashes Psych- appropriate mood and affect Labs / Imaging / Diagnostic Studies: 03/24/2024 BUENA POTS SCORE On a scale of 0-10 choose the number that corresponds to your average symptoms for the past week. If you have not experienced symptoms described below for your self 0 TOTAL: 50 Scores range from 0-120. The optimal cutoff to differentiate POTS patients and healthy controls >42. 03/24/2024 Nijmegen Questionnaire TOTAL Score: 23 (A score of 23 out of 64 suggestive of possible diagnosis of hyperventilation syndrome) SERVICE DATE: 04/28/2024 Oral Exhaled Nitric Oxide measurement: 25.0 (ppb) 04/28/2024 ECHO EF 66% There is mild upper septal left ventricular hypertrophy. Left ventricular systolic function is normal globally. Normal left ventricular diastolic function. The right ventricle is normal in size. No significant Valvular disease 04/28/2024 PFTs FVC 3.09 110% FEV1 2.50L 114% Ratio 0.81 DLCO 19.48 94% 03/24/2024 CXR 2V IMPRESSION: No acute radiographic abnormality. 03/24/2024 NT Pro BNP <125 pg/mL 205 High 03/24/2024 CBC WBC 10.13 HGB 16.2 Platelets 168 11/07/2020 Six minute walk Lowest pulse ox on room air 96% 1200 feet, 365 m -> 80% of predicted distance 09/06/2021 PFT FVC 2.88 L 92% FEV1 1.54 L 63% + 34% BD's (85%) Ratio 53 TLC 101% RV 111% RV/TLC 108% DLCO 89% FVL morphology -consistent with obstructive pattern. Spirometry 2014 FVC 2.8 L 83% FEV1 1.6 L 61% Ratio 57 Immunizations/Injections COVID-19 original vaccine, age 12+ yr, monovalent ([employer] - PURPLE TOP)10/04/2021, 12/20/2020, 11/29/2020 pneumococcal conjugate (PCV13) vaccine, 13 valent (PREVNAR 13)06/17/2016 pneumococcal polysaccharide (PPV23) vaccine, 23 valent (PNEUMOVAX 23)07/17/2020, 09/14/2012 tetanus diphtheria pertussis (Tdap) vaccine, age 7+ yr (ADACEL, BOOSTRIX)05/28/2018 zoster (ZVL) vaccine, live (ZOSTAVAX)06/24/2016 ASSESSMENT/PLAN: 1. Tachycardia - ICD9: 785.0, ICD10: R00.0 (primary diagnosis) - Since having CoVID she sometimes feels her heart is racing/ - EXTENDED WEAR SUPERVISOR BOTTLE MACHINES PATCH - They also wanted recommendations on a grader patrol because there is only one grader patrol in [place]. - I did not think about ordering the extended EKG patch until after the patient left the office so I did leave a message on the phone. 2. Moderate persistent asthma without complication - ICD9: 493.90, ICD10: J45.40 -Continue Symbicort and Singulair 3. Post-COVID chronic shortness of breath - ICD9: 786.05, 139.8, ICD10: R06.02, U09.9 -I reviewed her testing with her today. -I reviewed her testing as posted above. PFTs are normal, chest x-ray is normal, ECHO is with good EF and no significant valvular abnormalities. There was a mention about mild upper septal left ventricular hypertrophy. This likely not the cause of POST COVID SOB. She and her would like to see a grader patrol to explore possible cardiac etiology of ongoing persistent post-COVID shortness of breath. See #1 Michoacano Braga MD Parts of the HPI, ROS, exam and impression/plan may have been copied from my previous clinical note and remain pertinent. Current changes have been made and documented today. Other parts of data were deleted if not relevant for today. I spent a total of 50 minutes on the date of the service which included preparing to see the patient, [id number] patient care, completing clinical documentation, obtaining and/or reviewing separately obtained history, performing a medically appropriate examination, counseling and educating the patient/family/caregiver, ordering medications, tests, or procedures, communicating with other HCPs (not separately reported), independently interpreting results (not separately reported), and communicating results to the patient/family/caregiver. documented in this encounter [facility] 05-12-2024 Note HNO ID: [id number] Author: MICHOACANO BRAGA MD Service: ? Author Type: Physician Type: Progress Notes Filed: 05/12/2024 17:25 Note Text: . Pulmonary Clinic Follow-up Note Patient Name: Joi Long PRIMARY CARE PHYSICIAN: Gregg Anton MD Date of visit: 05/12/2024 COMMUNICATION WILL BE SENT VIA SHARED MEDICAL RECORDS OR US MAIL. HISTORY OF PRESENT ILLNESS: Joi Long is a 69 year old female, Here today for F/U asthma. She also has a history of SUMA but intolerant to CPAP. She is on Symbicort 160mcg 2 puffs BID, Spiriva Respimat and montelukast. She came down with COVID 01 December 2019. She needed to be admitted for 4 days at [facility]. She had prolonged long CIVID symptoms of chronic fatigue and chronic SOB. JUDI 03/24/2024 ACT score was 18. She had COVID in November 2019. Since that time she has been more short of breath than usual. That last office visit her MALMO score was 50 (Score > 42 could suggest possible POTs) and her Nijmegen score was 23 (score of >23 suggest possible diagnosis of hyperventilation syndrome) Last office visit I ordered an ECHO, CXR, PFT, NT proBNP and CBC for further evaluation of ongoing post-COVID shortness of breath. CC is ongoing SOB. She was SOB walking into the building from the parking lot and she had a parking spot spot close to the building. Sometimes she has a cough too. She also has chronic fatigue and brain fog since COVID. Since having COVID she sometimes feels like her heart is racing. . ASTHMA CONTROL TEST Date: 05/11/2024 In the last 4 weeks, how much of the time did your asthma keep you from getting as much done at work or home that you wanted to do? None of the time (5) In the last 4 weeks, how often have you had shortness of breath? More than once per day (1) In the last 4 weeks, how often did your asthma symptoms (wheezing, coughing, shortness of breath, chest tightness or pain) wake you up at night or earlier than usual? Not at all (5) In the last 4 weeks, how often have you used your rescue inhaler or nebulizer medication (such as Albuterol, Proventil, Ventolin, Maxair, Xoponex, or Primatene Mist)? Not at all (5) In the last 4 weeks, how would you rate your asthma control? Well controlled (4) Total: 20 10/21/2022: 20 01/13/2022: 25 07/04/21: 18 06/04/2021 total: 13 05/02/2021: 21 12/07/2020: 17 PAST MEDICAL HISTORY No date: Abnormal Papanicolaou smear of vagina and vaginal HPV No date: Asthma No date: Breast cancer (HCC) Comment: left No date: Fibromyalgia No date: GERD (gastroesophageal reflux disease) No date: HLD (hyperlipidemia) No date: HTN (hypertension) No date: Lichen sclerosus No date: Mitral valve disorders(424.0) No date: SUMA on CPAP Comment: resolved No date: Other chest pain No date: Other malaise and fatigue No date: PMH - PAST MEDICAL HISTORY OF Comment: ELEVATED LIPIDS No date: PMH - PAST MEDICAL HISTORY OF Comment: Irregular Heartbeat No date: POTS (postural orthostatic tachycardia syndrome) No date: Shortness of breath PAST SURGICAL HISTORY No date: APPENDECTOMY 2000, 2003, 2004: BACK SURGERY HX Comment: spinal fusion 12/2015: BLADDER SURGERY HX Comment: adjust bladder sling 12/2018: BREAST LUMPECTOMY HX 2008: COLONOSCOPY 2003: COLPOSCOPY CERVIX UPPER/ADJACENT VAGINA 2002: ENDOMETRIAL BX W/WO ENDOCERVIX BX W/O DILAT SPX 07/2021: KNEE SURGERY HX 03/08/2015: LAP VAG HYST <=250 G RMV T/O No date: LIG/TRNSXJ FLP TUBE ABDL/VAG APPR UNI/BI Comment: Tubal ligation 11/2017: S LEAD/SPINAL CORD STIM Comment: removal 2001: SPINAL CORD STIM PERCT SCS ELCT No date: TONSILLECTOMY PRIMARY/SECONDARY Comment: Tonsillectomy MEDICATIONS: mirabegron (MYRBETRIQ) 25 mg Tb24 Take 1 tablet by mouth once daily. clobetasol (TEMOVATE) 0.05 % cream APPLY 1/4 OF A GRAM TO GENITALIA TWICE DAILY DIRECTED insulin glargine (LANTUS SOLOSTAR U-100 INSULIN) 100 unit/mL (3 mL) Inject subcutaneously. 12 units daily dapagliflozin propanediol (FARXIGA) 10 mg tablet Take 10 mg by mouth daily with breakfast. estradiol (ESTRACE) 0.01 % (0.1 mg/gram) vaginal cream Use 0.5 g vaginally two times a week. use small amount to vaginal opening twice weekly budesonide-formoterol (SYMBICORT) 160-4.5 mcg/actuation inhaler Inhale 2 Puffs as instructed two times a day. carvedilol (COREG) 6.25 mg tablet Take 6.25 mg by mouth. montelukast (SINGULAIR) 10 mg tablet Take 1 tablet by mouth once daily. tamoxifen (NOLVADEX) 20 mg tablet Take 1 tablet by mouth once daily. ipratropium-albuterol (DUONEB) 0.5 mg-3 mg(2.5 mg base)/3 mL nebu Inhale 3 mL as instructed four times daily. doxepin capsule 25 mg Take 25 mg by mouth daily at bedtime. glimepiride (AMARYL) 4 mg tablet Take 4 mg by mouth daily with breakfast. 4 mg in am 2 mg in pm budesonide-formoterol (SYMBICORT) 160-4.5 mcg/actuation inhaler Inhale 2 Puffs as instructed twice daily. semaglutid (more content not included)... [facility] 04-28-2024 Note HNO ID: [id number] Author: ANTONIETA GOVEA CRT Service: ? Author Type: Respiratory Therapist Type: Procedures Filed: 04/28/2024 14:00 Note Text: RESPIRATORY THERAPY ORAL EXHALED NITRIC OXIDE SERVICE DATE: 04/28/2024 SERVICE TIME: 2:00 PM Oral Exhaled Nitric Oxide measurement: 25.0 (ppb) Normal: Adult <25 ppb, pediatric (<12 years) <20 ppb High Normal / Increased: Adult 25-50 ppb, pediatric (<12 years) 20-35 ppb Moderately raised exhaled Nitric Oxide may indicate underlying inflammation, but note that: Cold and influenza can raise exhaled Nitric Oxide and some patients have higher baseline exhaled Nitric Oxide levels than others. High: Adult >50 ppb, pediatric (<12 years) >35 ppb Indicative of ongoing eosinophilic inflammation. Symptomatic patient likely to respond to steroids. Possible causes (if already on steroids): Poor compliance, recent allergen exposure, steroid dose inadequate, and steroid resistance. Note that not all patients with high exhaled nitric oxide levels display symptoms. Oral Exhaled Nitric Oxide measurement (Previous Encounters) Test Date Oral Exhaled Nitric Oxide (ppb) 04/28/2024 25.0 NAME: Antonieta Govea CRT PATIENT NAME: Joi Long DATE: April 28, 2024 TIME: 2:00 PM [facility] 04-28-2024 Procedure note Associated Ord er(s): NITRIC OXIDE, EXHALED RESPIRATORY THERAPY ORAL EXHALED NITRIC OXIDE SERVICE DATE: 04/28/2024 SERVICE TIME: 2:00 PM Oral Exhaled Nitric Oxide measurement: 25.0 (ppb) Normal: Adult <25 ppb, pediatric (<12 years) <20 ppb High Normal / Increased: Adult 25-50 ppb, pediatric (<12 years) 20-35 ppb Moderately raised exhaled Nitric Oxide may indicate underlying inflammation, but note that: Cold and influenza can raise exhaled Nitric Oxide and some patients have higher baseline exhaled Nitric Oxide levels than others. High: Adult >50 ppb, pediatric (<12 years) >35 ppb Indicative of ongoing eosinophilic inflammation. Symptomatic patient likely to respond to steroids. Possible causes (if already on steroids): Poor compliance, recent allergen exposure, steroid dose inadequate, and steroid resistance. Note that not all patients with high exhaled nitric oxide levels display symptoms. Oral Exhaled Nitric Oxide measurement (Previous Encounters) Test Date Oral Exhaled Nitric Oxide (ppb) 04/28/2024 25.0 NAME: Antonieta Govea CRT PATIENT NAME: Joi Long DATE: April 28, 2024 TIME: 2:00 PM [facility] 04-28-2024 Procedure note Associated Ord er(s): NITRIC OXIDE, EXHALED RESPIRATORY THERAPY ORAL EXHALED NITRIC OXIDE SERVICE DATE: 04/28/2024 SERVICE TIME: 2:00 PM Oral Exhaled Nitric Oxide measurement: 25.0 (ppb) Normal: Adult <25 ppb, pediatric (<12 years) <20 ppb High Normal / Increased: Adult 25-50 ppb, pediatric (<12 years) 20-35 ppb Moderately raised exhaled Nitric Oxide may indicate underlying inflammation, but note that: Cold and influenza can raise exhaled Nitric Oxide and some patients have higher baseline exhaled Nitric Oxide levels than others. High: Adult >50 ppb, pediatric (<12 years) >35 ppb Indicative of ongoing eosinophilic inflammation. Symptomatic patient likely to respond to steroids. Possible causes (if already on steroids): Poor compliance, recent allergen exposure, steroid dose inadequate, and steroid resistance. Note that not all patients with high exhaled nitric oxide levels display symptoms. Oral Exhaled Nitric Oxide measurement (Previous Encounters) Test Date Oral Exhaled Nitric Oxide (ppb) 04/28/2024 25.0 NAME: Antonieta Govea CRT PATIENT NAME: Joi Long DATE: April 28, 2024 TIME: 2:00 PM documented in this encounter [facility] 04-18-2024 History of Presen t illness Narrative Employee Benefits Manager offered: Patient declines. Joi Long is a 69 year old female who presents for problem visit for discussion of prolapse and urinary frequency. . HPI: 69 YOF feels some pressure vaginally. However, not as much as before she had hyster for prolapse in the past. Main quality of life issue now is some HUNG and frequency, some feeling of incomplete void. She does not want to try pessary before because she has tried 1 before and it did not work well for her. She had a lot of pain and had to return to the office to have it removed. OB History T3 L3 SAB1 IAB0 Ectopic0 Multiple0 Live Births0 Medication Manager History LMP: 07/04/2007, Hysterectomy Age at Menarche: Age at First : Age at Menopause: Medication Manager History Comments: Sexual Activity: Yes; Male; bilateral tubal ligation Contraception: Surgical PAST MEDICAL HISTORY No date: Abnormal Papanicolaou smear of vagina and vaginal HPV No date: Asthma No date: Breast cancer (HCC) Comment: left No date: Fibromyalgia No date: GERD (gastroesophageal reflux disease) No date: HLD (hyperlipidemia) No date: HTN (hypertension) No date: Lichen sclerosus No date: Mitral valve disorders(424.0) No date: SUMA on CPAP Comment: resolved No date: Other chest pain No date: Other malaise and fatigue No date: PMH - PAST MEDICAL HISTORY OF Comment: ELEVATED LIPIDS No date: PMH - PAST MEDICAL HISTORY OF Comment: Irregular Heartbeat No date: POTS (postural orthostatic tachycardia syndrome) No date: Shortness of breath PAST SURGICAL HISTORY No date: APPENDECTOMY 2000, 2003, 2005: BACK SURGERY HX Comment: spinal fusion 12/2015: BLADDER SURGERY HX Comment: adjust bladder sling 12/2018: BREAST LUMPECTOMY HX 2007: COLONOSCOPY 2003: COLPOSCOPY CERVIX UPPER/ADJACENT VAGINA 2002: ENDOMETRIAL BX W/WO ENDOCERVIX BX W/O DILAT SPX 07/2021: KNEE SURGERY HX 03/08/2015: LAP VAG HYST <=250 G RMV T/O No date: LIG/TRNSXJ FLP TUBE ABDL/VAG APPR UNI/BI Comment: Tubal ligation 11/2017: S LEAD/SPINAL CORD STIM Comment: removal 2001: SPINAL CORD STIM PERCT SCS ELCT No date: TONSILLECTOMY PRIMARY/SECONDARY <AGE 12 Comment: Tonsillectomy FAMILY HISTORY Problem Relation Age of Onset Heart Mother Pace Maker/Irregular Heartbeat Hypertension Mother Heart Father Hypertension Father Lipids Father High Cholesterol Hypertension Brother Social History Tobacco Use Smoking status: Never Smokeless tobacco: Never Vaping Use Vaping Use: Never used Substance Use Topics Alcohol use: No Drug use: No Current Outpatient Medications Medication Sig clobetasol (TEMOVATE) 0.05 % cream APPLY 1/4 OF A GRAM TO GENITALIA TWICE DAILY DIRECTED insulin glargine (LANTUS SOLOSTAR U-100 INSULIN) 100 unit/mL (3 mL) Inject subcutaneously. 12 units daily dapagliflozin propanediol (FARXIGA) 10 mg tablet Take 10 mg by mouth daily with breakfast. estradiol (ESTRACE) 0.01 % (0.1 mg/gram) vaginal cream Use 0.5 g vaginally two times a week. use small amount to vaginal opening twice weekly budesonide-formoterol (SYMBICORT) 160-4.5 mcg/actuation inhaler Inhale 2 Puffs as instructed two times a day. carvedilol (COREG) 6.25 mg tablet Take 6.25 mg by mouth. montelukast (SINGULAIR) 10 mg tablet Take 1 tablet by mouth once daily. tamoxifen (NOLVADEX) 20 mg tablet Take 1 tablet by mouth once daily. ipratropium-albuterol (DUONEB) 0.5 mg-3 mg(2.5 mg base)/3 mL nebu Inhale 3 mL as instructed four times daily. doxepin capsule 25 mg Take 25 mg by mouth daily at bedtime. glimepiride (AMARYL) 4 mg tablet Take 4 mg by mouth daily with breakfast. 4 mg in am 2 mg in pm budesonide-formoterol (SYMBICORT) 160-4.5 mcg/actuation inhaler Inhale 2 Puffs as instructed twice daily. semaglutide (OZEMPIC) 0.25 mg or 0.5 mg(2 mg/1.5 mL) pnij Inject 0.25 mg subcutaneously one time a week. DULoxetine (CYMBALTA) 60 mg capsule Take 60 mg by mouth every morning. MEDICATION, NON-DATABASE Take 1 Each by mouth once daily. Slim MEDICATION, NON-DATABASE Take 2 capsules by mouth daily at bedtime. Biocleanse THERAPEUTIC MULTIVITAMIN TAB Take one(1) tablet daily. No current facility-administered medications for this visit. Allergies As of Date: 04/18/2024 Allergen Noted Reaction STEROIDS [CORTICOSTEROIDS (GLUCOC*04/07/2024 Rash MORPHINE 08/28/2005 Rash METFORMIN 04/07/2024 Diarrhea RAMIPRIL 04/07/2024 Cough ZESTORETIC [LISINOPRIL-HYDROCHLOR* Rash and Cough Fully Assessed 04/18/2024 Allergies and current medication updated:Yes EXAM: BP 120/80 Wt 168 lb 3.2 oz (76.3kg) LMP 07/04/2007 GENERAL: pleasant, female in no apparent distress PELVIC: PELVIC: normal Bartholin's glands, urethra, Juncos's glands, no vulvar lesions, physiologic discharge present, cervix surgically absent, cystocele 2nd degree, rectocele 1st degree, labia major red, minora w/ some thin white skin c/w lichen sclerosis BIMANUAL: no adnexal masses, non-tender, and uterus surgically absent UNIVERSAL PROTOCOL / SAFETY CHECKLIST Procedure to be Performed: Postvoid residual Sign In: A Moment of CARE was completed. Personnel directly involved with the procedure wore the appropriate PPE (Personal Protective Equipment). Patient/Surrogate Stated/Verified: PATIENT VERIFIED(optional for EMERGENT procedures): Patient name, Date of , Relevant allergies, and The intended procedure Time Out Communication: Intended patient and procedure match the source documents. Consent documented and matches the intended procedure. No implant(s) inserted. Sign Out: SIGN OUT (optional for EMERGENT procedures): No specimen collected. All instruments, equipment, possible retained foreign bodies accounted for. Post-procedure follow-up management communicated and Plan of Care Visit completed when applicable. Nora Barton MD ASSESSMENT AND PLAN: PVR done in usual sterile fashion and after 15 min there was 40 cc of very clear light yellow urine. Send for culture and UA. Declines pessary. R/b/a to trial Myrbetriq reviewed. Patient desires to trial this. Discussed with her option of pelvic floor physical therapy and/or urogyn consult if desires further surgical intervention.Will see how medication does for symptoms for now. Nora Barton MD documented in this encounter [facility] 04-08-2024 Telephone encounter Note Left detailed voicemail on Pt identified voicemail. Radha Wnyn RN [facility] 04-08-2024 Miscellaneous Notes Left detailed voicemail on Pt identified voicemail. Radha Wynn RN Sounds like a great plan. Thanks! Patient really does not want to try pessary again. States she had to return a couple hours after insertion because it was so painful and would prefer not to try that if okay. She is interested in the PVR appt and OAB medication. She is going to look into pelvic floor PT and contact office if she wants to do that too. Is it okay to do appointment and medication first? She is scheduled for 04/18 for now. Lucia Arredondo RN Even if had one before hyst want her to retry to see how bladder functions. May need repeat prolapse surgery and would send to urogyn specialist for this but would want her to trial this first to see how it works. Or can do pelvic floor PT and follow up her for Postvoid residual and trial of medication for OAB if prolapse not bothersome enough yet for her to consider surgery. . Nora Barton MD Pt called in stating she remembered she had a pessary done before and she did not want to proceed with that again. She cancelled apt and asked if there was anything else Fracisco could suggest. Please advise. Thank you documented in this encounter [facility] 04-08-2024 Telephone encounter Note Sounds like a great plan. Thanks! [facility] 04-07-2024 Telephone encounter Note Patient really does not want to try pessary again. States she had to return a couple hours after insertion because it was so painful and would prefer not to try that if okay. She is interested in the PVR appt and OAB medication. She is going to look into pelvic floor PT and contact office if she wants to do that too. Is it okay to do appointment and medication first? She is scheduled for 04/18 for now. Lucia Arredondo RN [facility] 04-07-2024 Telephone encounter Note Even if had one before hyst want her to retry to see how bladder functions. May need repeat prolapse surgery and would send to urogyn specialist for this but would want her to trial this first to see how it works. Or can do pelvic floor PT and follow up her for Postvoid residual and trial of medication for OAB if prolapse not bothersome enough yet for her to consider surgery. . Nora Barton MD [facility] 04-07-2024 Telephone encounter Note Pt called in stating she remembered she had a pessary done before and she did not want to proceed with that again. She cancelled apt and asked if there was anything else Fracisco could suggest. Please advise. Thank you [facility] 04-07-2024 History of Presen t illness Narrative Joi is a 69 year old who presents for an annual gynecologic exam without complaints. Lichen scelosis controlled w/ steroid cream. Using it twice a day. h/o breast ca, on tamoxifen s/p hysterectomy had hyst for prolapse and having some bladder issues Postmenopausal: yes HRT use: No. Last Pap: 08/31/2012 normal HPV: 08/24/2012 negative History of abnormal pap: No Last mammogram: up to date History of abnormal mammogram: No Sexually active: No OB History T3 L3 SAB1 IAB0 Ectopic0 Multiple0 Live Births0 Medication Manager History LMP: 07/04/2007, Postmenopausal Age at Menarche: Age at First : Age at Menopause: Medication Manager History Comments: Sexual Activity: Yes; Male; bilateral tubal ligation Contraception: Surgical PAST MEDICAL HISTORY Diagnosis Date Abnormal Papanicolaou smear of vagina and vaginal HPV Asthma Breast cancer (HCC) Fibromyalgia GERD (gastroesophageal reflux disease) HLD (hyperlipidemia) HTN (hypertension) Mitral valve disorders(424.0) SUMA on CPAP Other chest pain Other malaise and fatigue PMH - PAST MEDICAL HISTORY OF ELEVATED LIPIDS PMH - PAST MEDICAL HISTORY OF Irregular Heartbeat POTS (postural orthostatic tachycardia syndrome) Shortness of breath PAST SURGICAL HISTORY Procedure Laterality Date APPENDECTOMY BACK SURGERY HX 2000, 2004, 2005 spinal fusion BLADDER SURGERY HX 12/2015 adjust bladder sling BREAST LUMPECTOMY HX 12/2018 COLONOSCOPY 2008 COLPOSCOPY CERVIX UPPER/ADJACENT VAGINA 2002 ENDOMETRIAL BX W/WO ENDOCERVIX BX W/O DILAT SPX 2002 KNEE SURGERY HX 07/2021 LAP VAG HYST <=250 G RMV T/O 03/08/2015 LIG/TRNSXJ FLP TUBE ABDL/VAG APPR UNI/BI Tubal ligation S LEAD/SPINAL CORD STIM 11/2017 removal SPINAL CORD STIM PERCT SCS ELCT 2002 TONSILLECTOMY PRIMARY/SECONDARY <AGE 13 Tonsillectomy FAMILY HISTORY Problem Relation Age of Onset Heart Mother Pace Maker/Irregular Heartbeat Hypertension Mother Heart Father Hypertension Father Lipids Father High Cholesterol Hypertension Brother SOCIAL HISTORY Social History Tobacco Use Smoking status: Never Smokeless tobacco: Never Vaping Use Vaping Use: Never used Substance Use Topics Alcohol use: No Drug use: No REVIEW OF SYSTEMS Abdomen: No abdominal pain, nausea, vomiting, diarrhea, or constipation. No bloating, early satiety, indigestion, or increased flatulence. Bladder: gets up 1-2 times a night, has a lot of frequency Breast: No breast lumps, nipple d/c, overlying skin changes, redness or skin retraction Allergies and current medication updated:Yes EXAM: LMP 07/04/2007 GENERAL: pleasant, female in no apparent distress HEENT: Normocephalic, atraumatic, mucus membranes moist, and no lesions NECK: Supple, full range of motion, no adenopathy, and thyroid normal DERMATOLOGY: Normal, without lesions, non-icteric, and non-hirsute BREAST: soft, non-tender, symmetric, no dominant mass, normal nipple-areolar complex, no lymphadenopathy, and no nipple, scar from previous surgery on left discharge CHEST: Normal inspiratory effort ABDOMEN: soft, non-tender, and no masses PELVIC: normal Bartholin's glands, urethra, Juncos's glands, no vulvar lesions, physiologic discharge present, cervix surgically absent, cystocele 2nd degree, rectocele 1st degree, labia major red, minora w/ some thin white skin c/w lichen sclerosis BIMANUAL: no adnexal masses, non-tender, and uterus surgically absent RECTOVAGINAL: deferred. NEURO: alert and oriented x3,exam grossly non-focal EXTREMITIES: normal ASSESSMENT/PLAN: 1) Health maintenance: Pap/HPV screening no longer needed Mammogram up to date Colon cancer screening: up to date with screening 2) Follow up one year or sooner as needed lichen sclerosis- d/w her need to decrease her steroid and r/b/a to trial vaginal estrogen reveiwed f/u for pessary trial for cysotcel and utrinary frequency and PVR Nora Barton MD documented in this encounter [facility] 03-28-2024 Telephone encounter Note ASSESSMENT/PLAN: 1. Moderate persistent asthma without complication - ICD9: 493.90, ICD10: J45.40 \ - BUDESONIDE-FORMOTEROL HFA 160 MCG-4.5 MCG/ACTUATION AEROSOL INHALER Michoacano Braga MD [facility] 03-28-2024 Miscellaneous Notes ASSESSMENT/PLAN: 1. Moderate persistent asthma without complication - ICD9: 493.90, ICD10: J45.40 \ - BUDESONIDE-FORMOTEROL HFA 160 MCG-4.5 MCG/ACTUATION AEROSOL INHALER Michoacano Braga MD Pt's spouse LVM stating that after her OV on Symbicort was to be sent to [facility] in [place]. Please advise. Chandni Holman documented in this encounter [facility] 03-28-2024 Telephone encounter Note Pt's spouse LVM stating that after her OV on Symbicort was to be sent to [facility] in [place]. Please advise. Chandni Holman [facility] 03-24-2024 History of Presen t illness Narrative Radiology Service Progress Note PATIENT NAME: Joi Long DATE OF SERVICE: March 24, 2024 TIME: 3:23 PM PATIENT IDENTITY VERIFICATION COMPLETED USING TWO (2) IDENTIFIERS: Name and Date of confirmed by patient verbally. FALL SCREENING: Has the patient had 2 falls in the last year or 1 fall with injury or currently using an Ambulatory Assistive Device (Walker, Cane, Wheelchair, Crutches, etc.)? No PATIENT GENDER DATA: Female. status: : No status: NO. PATIENT RELEVANT IMPLANT DATA REVIEWED: Not Applicable PATIENT PRESENTS WITH AN IMPLANTABLE OR ATTACHED RIVER RAFTING GUIDE: No RADIOLOGY DEPARTMENT: General X-ray: Exam(s) Completed: Chest X-Ray PERIPHERAL IV DATA: Not applicable SIGNED BY: RT Molly(Kaleigh) March 24, 2024 3:23 PM documented in this encounter [facility] 03-24-2024 Note HNO ID: [id number] Author: KENA PICKERING RT (R) Service: Radiology Author Type: Technologist Type: Progress Notes Filed: 03/24/2024 15:23 Note Text: Radiology Service Progress Note PATIENT NAME: Joi Long DATE OF SERVICE: March 24, 2024 TIME: 3:23 PM PATIENT IDENTITY VERIFICATION COMPLETED USING TWO (2) IDENTIFIERS: Name and Date of confirmed by patient verbally. FALL SCREENING: Has the patient had 2 falls in the last year or 1 fall with injury or currently using an Ambulatory Assistive Device (Walker, Cane, Wheelchair, Crutches, etc.)? No PATIENT GENDER DATA: Female. status: : No status: NO. PATIENT RELEVANT IMPLANT DATA REVIEWED: Not Applicable PATIENT PRESENTS WITH AN IMPLANTABLE OR ATTACHED RIVER RAFTING GUIDE: No RADIOLOGY DEPARTMENT: General X-ray: Exam(s) Completed: Chest X-Ray PERIPHERAL IV DATA: Not applicable SIGNED BY: CLARA Barnes) March 24, 2024 3:23 PM [facility] 03-24-2024 History of Presen t illness Narrative Images from the original note were not included. . Pulmonary Clinic Follow-up Note Patient Name: Joi Long PRIMARY CARE PHYSICIAN: Gregg Anton MD Date of visit: 03/24/2024 COMMUNICATION WILL BE SENT VIA SHARED MEDICAL RECORDS OR US MAIL. HISTORY OF PRESENT ILLNESS: Joi Long is a 69 year old female, Here today for F/U asthma. She also has a history of SUMA but intolerant to CPAP. She is on Symbicort 160mcg 2 puffs BID, Spiriva Respimat and montelukast. She came down with COVID 01 December 2019. She needed to be admitted for 4 days at [facility]. She had prolonged long CIVID symptoms of chronic fatigue and chronic SOB. JUDI 10/21/2022 her asthma symptoms were stable. Today she is Pt states she's bassem more SOB since she's had COVID. Never really got to her baseline breathing since having COVID. She is complaint with her inhalers See Flaco sanderson below. He also has remote history of POTS. She cannot recall when and where she had the tilt table test. She has never had any follow-up for this diagnosis Ms. ASTHMA CONTROL TEST Date: 03/24/2024 In the last 4 weeks, how much of the time did your asthma keep you from getting as much done at work or home that you wanted to do? None of the time (5) In the last 4 weeks, how often have you had shortness of breath? More than once per day (1) In the last 4 weeks, how often did your asthma symptoms (wheezing, coughing, shortness of breath, chest tightness or pain) wake you up at night or earlier than usual? Once or twice (4) In the last 4 weeks, how often have you used your rescue inhaler or nebulizer medication (such as Albuterol, Proventil, Ventolin, Maxair, Xoponex, or Primatene Mist)? Once a week or less (4) In the last 4 weeks, how would you rate your asthma control? Well controlled (4) Total: 18 10/21/2022: 20 01/13/2022: 25 07/04/21: 18 06/04/2021 total: 13 05/02/2021: 21 12/07/2020: 17 PAST MEDICAL HISTORY Diagnosis Date Abnormal Papanicolaou smear of vagina and vaginal HPV Asthma Breast cancer (HCC) Fibromyalgia GERD (gastroesophageal reflux disease) HLD (hyperlipidemia) HTN (hypertension) Mitral valve disorders(424.0) SUMA on CPAP Other chest pain Other malaise and fatigue PMH - PAST MEDICAL HISTORY OF ELEVATED LIPIDS PMH - PAST MEDICAL HISTORY OF Irregular Heartbeat POTS (postural orthostatic tachycardia syndrome) Shortness of breath PAST SURGICAL HISTORY Procedure Laterality Date APPENDECTOMY BACK SURGERY HX 2000, 2003, 2005 spinal fusion BLADDER SURGERY HX 12/2015 adjust bladder sling BREAST LUMPECTOMY HX 12/2018 COLONOSCOPY 2008 COLPOSCOPY CERVIX UPPER/ADJACENT VAGINA 2002 ENDOMETRIAL BX W/WO ENDOCERVIX BX W/O DILAT SPX 2002 KNEE SURGERY HX 07/2021 LIG/TRNSXJ FLP TUBE ABDL/VAG APPR UNI/BI Tubal ligation S LEAD/SPINAL CORD STIM 11/2017 removal SPINAL CORD STIM PERCT SCS ELCT 2001 TONSILLECTOMY PRIMARY/SECONDARY <AGE 13 Tonsillectomy TOTAL ABDOMINAL HYSTERECT W/WO RMVL TUBE OVARY 02/2015 w/bladder sling MEDICATIONS: carvedilol (COREG) 6.25 mg tablet Take 6.25 mg by mouth. montelukast (SINGULAIR) 10 mg tablet Take 1 tablet by mouth once daily. tamoxifen (NOLVADEX) 20 mg tablet Take 1 tablet by mouth once daily. ipratropium-albuterol (DUONEB) 0.5 mg-3 mg(2.5 mg base)/3 mL nebu Inhale 3 mL as instructed four times daily. doxepin capsule 25 mg Take 25 mg by mouth daily at bedtime. glimepiride (AMARYL) 4 mg tablet Take 4 mg by mouth daily with breakfast. 4 mg in am 2 mg in pm budesonide-formoterol (SYMBICORT) 160-4.5 mcg/actuation inhaler Inhale 2 Puffs as instructed twice daily. semaglutide (OZEMPIC) 0.25 mg or 0.5 mg(2 mg/1.5 mL) pnij Inject 0.25 mg subcutaneously one time a week. DULoxetine (CYMBALTA) 30 mg capsule Take 60 mg by mouth every morning. MEDICATION, NON-DATABASE Take 1 Each by mouth once daily. Slim MEDICATION, NON-DATABASE Take 2 capsules by mouth daily at bedtime. Biocleanse labetalol (TRANDATE) 300 mg tablet Take 200 mg by mouth twice daily. THERAPEUTIC MULTIVITAMIN TAB Take one(1) tablet daily. gabapentin (NEURONTIN) 100 mg capsule five times daily. One in the morning, one with supper, and three at bedtime VITAMIN B-12 2,500 mcg subl DISSOLVE 1 TABLET UNDER THE TONGUE ONCE DAILY (Patient not taking: Reported on 10/21/2022) empagliflozin (JARDIANCE) 25 mg tablet Take 25 mg by mouth. canagliflozin (INVOKANA) 300 mg tablet Take 300 mg by mouth daily with breakfast. (Patient not taking: Reported on 10/21/2022) Mucus Clearing Device (FLUTTER) ricyk 1 Device (Patient not taking: No sig reported) losartan (COZAAR) 50 mg tablet Take 50 mg by mouth once daily. Allergies: Morphine, Steroids [Other], and Zesteretic [Other] ROS: GENERAL: no fevers, chills, night sweats, nausea/vomiting, change in appetite or weight changes. +fatigue HEENT: no headache, visual changes. NECK: no swelling in neck noted RESPIRATORY: SEE HPI CARDIOVASCULAR: no chest pain GI: no pain or difficulty with swallowing, no abdominal pain, diarrhea or constipation. : No c/o dysuria, hematuria, frequency or incontinence MUSCULOSKELETAL: Negative for joint pain or swelling, back pain or muscle pain. SKIN: Negative for lesions, rash, and itching. HEMATOLOGY/LYMPHOLOGY No C/O for prolonged bleeding, bruising easily or swollen nodes. ENDOCRINE: Negative for cold or heat intolerance, polyuria, polydipsia and goiter. NEURO: + lightheadedness. + brain fog. Sometimes gets numbness in her right side. PHYSICAL EXAM: BP 156/86 (BP Site: Right Arm, BP Position: Sitting, BP Cuff Size: Regular Adult) Pulse 89 Temp 36.2 C (97.1 F) (Temporal) Resp 16 Ht 162.6 cm (5' 4) Wt 75.8 kg (167 lb) LMP 07/04/2007 SpO2 99% BMI 28.67 kg/m General- nad, comfortable Eyes- eomi, perrl ENT- mmm, oropharynx clear Neck- supple, no JVD CV- RRR Resp- clear to auscultation bilaterally, no wheezes or crackles, breathing nonlabored Abd- soft, nt, nd Ext- no clubbing, cyanosis, or edema Neuro- normal gait, no focal deficits Lymphatics - no supraclavicular or cervical lymphadenopathy Derm- no lesions/rashes Psych- appropriate mood and affect Labs / Imaging / Diagnostic Studies: BUENA POTS SCORE On a scale of 0-10 choose the number that corresponds to your average symptoms for the past week. If you have not experienced symptoms described below for your self 0 Dizziness in upright position or while standing up. 5 Dizziness, feeling that you are going to faint . 1 Palpitations, high pulse, or feeling heart beating irregularly. 8 Difficult breathing/dyspnea, both at effort and rest 8 Chest pain 3 Headache 3 Concentration difficulties and/or problems with thinking. 8 Muscle pain. 1 Nausea. 1 History of intestinal problems (stomach ache, diarrhea, constipation) 3 Abnormal tiredness that persists after rest 9 Insomnia TOTAL: 50 Scores range from 0-120. The optimal cutoff to differentiate POTS patients and healthy controls >42. [place] Questionnaire (never 0, rarely 1, sometimes 2, often 3, very often 4) Chest pain - 1 Feeling tense - 3 Blurred vision - 0 Dizzy spells - 3 Feeling confused - 2 Faster/deeper breathing - 3 Short of breath - 2 Tight feelings in the chest - 2 Bloated feeling in the stomach - 1 Tingling fingers - 0 Unable to breathe deeply - 0 Stiff arms or fingers - 0 Tight feelings around the mouth - 0 Cold hands or feet - 1 Palpitations - 3 Feelings of anxiety - 2 TOTAL Score: 23 (A score of 23 out of 64 suggestive of possible diagnosis of hyperventilation syndrome) 11/07/2020 Six minute walk Lowest pulse ox on room air 96% 1200 feet, 365 m -> 80% of predicted distance 09/06/2021 PFT FVC 2.88 L 92% FEV1 1.54 L 63% + 34% BD's (85%) Ratio 53 TLC 101% RV 111% RV/TLC 108% DLCO 89% FVL morphology -consistent with obstructive pattern. Spirometry 2014 FVC 2.8 L 83% FEV1 1.6 L 61% Ratio 57 Immunizations/Injections COVID-19 original vaccine, age 12+ yr, monovalent ([employer] - PURPLE TOP)10/04/2021, 12/20/2020, 11/29/2020 pneumococcal conjugate (PCV13) vaccine, 13 valent (PREVNAR 13)06/17/2016 pneumococcal polysaccharide (PPV23) vaccine, 23 valent (PNEUMOVAX 23)07/17/2020, 09/14/2012 tetanus diphtheria pertussis (Tdap) vaccine, age 7+ yr (ADACEL, BOOSTRIX)05/28/2018 zoster (ZVL) vaccine, live (ZOSTAVAX)06/24/2016 ASSESSMENT/PLAN: 1. Moderate persistent asthma without complication - ICD9: 493.90, ICD10: J45.40 (primary diagnosis) -Continue Symbicort, Spiriva and montelukast - NITRIC OXIDE, EXHALED 2. History of COVID-19 - ICD9: V12.09, ICD10: Z86.16 - See #3 3. Post-COVID chronic shortness of breath - ICD9: 786.05, 139.8, ICD10: R06.02, U09.9 -Will recheck following testing below. Then reassess. Pending on those results I may consider ordering a tilt table test next follow-up visit. - [place] score mildly elevated suggesting possibility of dysfunctional breathing. -MALMO score also elevated suggesting possible POTS. -POTS and dysfunctional breathing are associated with autonomic dysfunction. In our post-COVID recovery clinic we have seen cases of autonomic dysfunction as etiology of prolonged post-COVID shortness of breath. -Will get the below testing and reassess in 1 month - ECHO - PERFLUTREN LIPID MICROSPHERES 1.1 MG/ML INJECTION IN NS 10 ML - SODIUM CHLORIDE 0.9 % (FLUSH) INJECTION SYRINGE - XR CHEST 2V FRONTAL/LAT - SPIROMETRY WITH DILATOR IF OBSTRUCTED - LUNG DIFFUSION CAPACITY (DLCO) - LUNG VOLUMES - NT PRO BNP - COMPLETE BLOOD COUNT AND DIFFERENTIAL Michoacano Braga MD FU 1 months Parts of the HPI, ROS, exam and impression/plan may have been copied from my previous clinical note and remain pertinent. Current changes have been made and documented today. Other parts of data were deleted if not relevant for today. I spent a total of 40 minutes on the date of the service which included preparing to see the patient, [id number] patient care, completing clinical documentation, obtaining and/or reviewing separately obtained history, performing a medically appropriate examination, counseling and educating the patient/family/caregiver, ordering medications, tests, or procedures, communicating with other HCPs (not separately reported), independently interpreting results (not separately reported), and communicating results to the patient/family/caregiver. documented in this encounter [facility] 03-24-2024 Note HNO ID: [id number] Author: MICHOACANO BRAGA MD Service: ? Author Type: Physician Type: Progress Notes Filed: 03/24/2024 17:55 Note Text: . Pulmonary Clinic Follow-up Note Patient Name: Joi Long PRIMARY CARE PHYSICIAN: Gregg Anton MD Date of visit: 03/24/2024 COMMUNICATION WILL BE SENT VIA SHARED MEDICAL RECORDS OR US MAIL. HISTORY OF PRESENT ILLNESS: Joi Long is a 69 year old female, Here today for F/U asthma. She also has a history of SUMA but intolerant to CPAP. She is on Symbicort 160mcg 2 puffs BID, Spiriva Respimat and montelukast. She came down with COVID 01 December 2019. She needed to be admitted for 4 days at [facility]. She had prolonged long CIVID symptoms of chronic fatigue and chronic SOB. JUDI 10/21/2022 her asthma symptoms were stable. Today she is Pt states she's bassem more SOB since she's had COVID. Never really got to her baseline breathing since having COVID. She is complaint with her inhalers See SHIRIN and Roland cameronairchiquita below. He also has remote history of POTS. She cannot recall when and where she had the tilt table test. She has never had any follow-up for this diagnosis Ms. ASTHMA CONTROL TEST Date: 03/24/2024 In the last 4 weeks, how much of the time did your asthma keep you from getting as much done at work or home that you wanted to do? None of the time (5) In the last 4 weeks, how often have you had shortness of breath? More than once per day (1) In the last 4 weeks, how often did your asthma symptoms (wheezing, coughing, shortness of breath, chest tightness or pain) wake you up at night or earlier than usual? Once or twice (4) In the last 4 weeks, how often have you used your rescue inhaler or nebulizer medication (such as Albuterol, Proventil, Ventolin, Maxair, Xoponex, or Primatene Mist)? Once a week or less (4) In the last 4 weeks, how would you rate your asthma control? Well controlled (4) Total: 18 10/21/2022: 20 01/13/2022: 25 07/04/21: 18 06/04/2021 total: 13 05/02/2021: 21 12/07/2020: 17 PAST MEDICAL HISTORY Diagnosis Date Abnormal Papanicolaou smear of vagina and vaginal HPV Asthma Breast cancer (HCC) Fibromyalgia GERD (gastroesophageal reflux disease) HLD (hyperlipidemia) HTN (hypertension) Mitral valve disorders(424.0) SUMA on CPAP Other chest pain Other malaise and fatigue PMH - PAST MEDICAL HISTORY OF ELEVATED LIPIDS PMH - PAST MEDICAL HISTORY OF Irregular Heartbeat POTS (postural orthostatic tachycardia syndrome) Shortness of breath PAST SURGICAL HISTORY Procedure Laterality Date APPENDECTOMY BACK SURGERY HX 2000, 2003, 2005 spinal fusion BLADDER SURGERY HX 12/2015 adjust bladder sling BREAST LUMPECTOMY HX 12/2018 COLONOSCOPY 2008 COLPOSCOPY CERVIX UPPER/ADJACENT VAGINA 2003 ENDOMETRIAL BX W/WO ENDOCERVIX BX W/O DILAT SPX 2002 KNEE SURGERY HX 07/2021 LIG/TRNSXJ FLP TUBE ABDL/VAG APPR UNI/BI Tubal ligation S LEAD/SPINAL CORD STIM 11/2017 removal SPINAL CORD STIM PERCT SCS ELCT 2002 TONSILLECTOMY PRIMARY/SECONDARY Tonsillectomy TOTAL ABDOMINAL HYSTERECT W/WO RMVL TUBE OVARY 02/2015 w/bladder sling MEDICATIONS: carvedilol (COREG) 6.25 mg tablet Take 6.25 mg by mouth. montelukast (SINGULAIR) 10 mg tablet Take 1 tablet by mouth once daily. tamoxifen (NOLVADEX) 20 mg tablet Take 1 tablet by mouth once daily. ipratropium-albuterol (DUONEB) 0.5 mg-3 mg(2.5 mg base)/3 mL nebu Inhale 3 mL as instructed four times daily. doxepin capsule 25 mg Take 25 mg by mouth daily at bedtime. glimepiride (AMARYL) 4 mg tablet Take 4 mg by mouth daily with breakfast. 4 mg in am 2 mg in pm budesonide-formoterol (SYMBICORT) 160-4.5 mcg/actuation inhaler Inhale 2 Puffs as instructed twice daily. semaglutide (OZEMPIC) 0.25 mg or 0.5 mg(2 mg/1.5 mL) pnij Inject 0.25 mg subcutaneously one time a week. DULoxetine (CYMBALTA) 30 mg capsule Take 60 mg by mouth every morning. MEDICATION, NON-DATABASE Take 1 Each by mouth once daily. Slim MEDICATION, NON-DATABASE Take 2 capsules by mouth daily at bedtime. Biocleanse labetalol (TRANDATE) 300 mg tablet Take 200 mg by mouth twice daily. THERAPEUTIC MULTIVITAMIN TAB Take one(1) tablet daily. gabapentin (NEURONTIN) 100 mg capsule five times daily. One in the morning, one with supper, and three at bedtime VITAMIN B-12 2,500 mcg subl DISSOLVE 1 TABLET UNDER THE TONGUE ONCE DAILY (Patient not taking: Reported on 10/21/2022) empagliflozin (JARDIANCE) 25 mg tablet Take 25 mg by mouth. canagliflozin (INVOKANA) 300 mg tablet Take 300 mg by mouth daily with breakfast. (Patient not taking: Reported on 10/21/2022) Mucus Clearing Device (FLUTTER) ricky 1 Device (Patient not taking: No sig reported) losartan (COZAAR) 50 mg tablet Take 50 mg by mouth once daily. Allergies: Morphine, Steroids [Other], and Zesteretic [Other] ROS: GENERAL: no fevers, chills, night sweats, nausea/vomiting, change in mae (more content not included)... 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 Margin greater than 2.2 mm. Completed adjuvant radiation end of March 2019. Initiated adjuvant anastrozole end of June 2019. Held October 2019 due to chronic headaches of unclear etiology. Headaches did not improve off anastrozole. Developed Covid 19 infection in spring and delayed restarting anastrozole until February 2020. Due to bone/joint pain and weight gain associated with anastrozole, switched to tamoxifen October 2020. Other PMHx 1. DM 2. Asthma 3. GERD 4. MVP 5. OA, back surgery x 3 6. Hysterectomy and BSO 2016 7. Appy 8. HTN 9. Depression Social History Social History Tobacco Use Smoking status: Never Smokeless tobacco: Never Vaping Use Vaping status: Never Used Substance Use Topics Alcohol use: Never Drug use: Never Family History MGF - prostate CA PGM - leukemia Interval History: Compliant with tamoxifen. Denies new breast masses. Been seen by dermatology for precancerous lesions involving forearm. Physical Exam: Vitals reviewed Alert, NAD, ecog 0 No LAD in neck, axilla Bilateral breast without mass or lymphadenopathy. Imaging/Labs: Mammogram February 2024 benign Assessment/Plan: 69 y.o. with PMHx as above 1. 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 Margin greater than 2.2 mm. Completed adjuvant radiation end of March 2019. Initiated adjuvant anastrozole June 2019 but held from October 2019 through February 2020 due to headaches and Covid 19 infection. Due to bone/joint pain and weight gain associated with anastrozole, switched to tamoxifen October 2020. 2. Discussed side effects of tamoxifen 20 mg p.o. daily including but not limited to bone/joint pain, hot flashes, slight increased risk of uterine cancer (she has had hysterectomy), stroke and thrombosis, vision changes. Tamoxifen does not improve survival but does decrease risk of DCIS or invasive breast cancer recurrence (absolute benefit 3-4%). Treatment is given with curative intent and would continue for 5 years based on current data. Median five-year breast cancer specific overall survival greater than 97%. 3. Have encouraged physical activity, healthy diet, limiting alcohol intake, maintaining healthy body weight. 4. Annual surveillance mammography next due February 2025. 5. Follow-up 1 year with mammogram just prior. There are no other issues with medication compliance, stressors, depression, side effects of therapy other than as noted above. Discussion congruent with NCCN guidelines if applicable. she consents to treatment. Shared decision making was performed. documented in this encounter [facility] 12-31-2023 Nurse Note Pt here at [facility] with for F/U with Dr. Meyers. Pt states appetite and sleeping are WNL. No issues with skin to tx area. Pt has mammogram 03/08/24 and will see 03/14/24. Still taking Tamoxifen. No other concerns today. [facility] 12-31-2023 Nurse Note Pt here at [facility] with for F/U with Dr. Meyers. Pt states appetite and sleeping are WNL. No issues with skin to tx area. Pt has mammogram 03/08/24 and will see 03/14/24. Still taking Tamoxifen. No other concerns today. documented in this encounter [facility] 03-09-2023 History of Presen t illness Narrative Hematology/Oncology History: DCIS (stage 0, TisNxMx, G2, ER 80, RI 50) of left breast status post lumpectomy and sentinel lymph node dissection on 12/27/2018. Margin greater than 2.2 mm. Completed adjuvant radiation end of March 2019. Initiated adjuvant anastrozole end of June 2019. Held October 2019 due to chronic headaches of unclear etiology. Headaches did not improve off anastrozole. Developed Covid 19 infection in spring and delayed restarting anastrozole until February 2020. Due to bone/joint pain and weight gain associated with anastrozole, switched to tamoxifen October 2020. Other PMHx 1. DM 2. Asthma 3. GERD 4. MVP 5. OA, back surgery x 3 6. Hysterectomy and BSO 2016 7. Appy 8. HTN 9. Depression Social History Social History Tobacco Use Smoking status: Never Smokeless tobacco: Never Vaping Use Vaping Use: Never used Substance Use Topics Alcohol use: Never Drug use: Never Family History MGF - prostate CA PGM - leukemia Interval History: Compliant with tamoxifen. No new complaints. Does have some chronic intermittent breast tenderness. Denies new breast masses Physical Exam: Vitals reviewed Alert, NAD, ecog 0 No LAD in neck, axilla Bilateral breast without mass or lymphadenopathy. Imaging/Labs: Mammogram February 2023 benign Assessment/Plan: 68 y.o. with PMHx as above 1. 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 Margin greater than 2.2 mm. Completed adjuvant radiation end of March 2019. Initiated adjuvant anastrozole June 2019 but held from October 2019 through February 2020 due to headaches and Covid 19 infection. Due to bone/joint pain and weight gain associated with anastrozole, switched to tamoxifen October 2020. 2. Discussed side effects of tamoxifen including but not limited to bone/joint pain, hot flashes, slight increased risk of uterine cancer (she has had hysterectomy), stroke and thrombosis, vision changes. Tamoxifen does not improve survival but does decrease risk of DCIS or invasive breast cancer recurrence (absolute benefit 3-4%). Treatment is given with curative intent and would continue for 5 years based on current data. Median five-year breast cancer specific overall survival greater than 97%. 3. Have encouraged physical activity, healthy diet, limiting alcohol intake, maintaining healthy body weight. 4. Annual surveillance mammography next due February 2024. 5. Follow-up 1 year with mammogram just prior. There are no other issues with medication compliance, stressors, depression, side effects of therapy other than as noted above. Discussion congruent with NCCN guidelines if applicable. documented in this encounter [facility] 12-24-2022 Note Formatting of this n ote might be different from the original. Soreness all the time left axilla where lymph nodes were removed [facility] 12-24-2022 Miscellaneous Notes Soreness all the time left axilla where lymph nodes were removed documented in this encounter [facility] 12-24-2022 Nurse Note Yearly follow up appoint with Dr Luigi Polanco good Energy level --still does not have a lot of energy. Denies pain in the left breast. Pt scheduled in February for mammogram Continue to take tamoxifen KM [facility] 12-24-2022 Nurse Note Yearly follow up appoint with Dr Meyers Appetite good Energy level --still does not have a lot of energy. Denies pain in the left breast. Pt scheduled in February for mammogram Continue to take tamoxifen KM documented in this encounter [facility] 10-21-2022 History of Presen t illness Narrative Images from the original note were not included. . Pulmonary Clinic Follow-up Note Patient Name: Joi Long PRIMARY CARE PHYSICIAN: Gregg Anton MD Date of visit: 10/21/2022 COMMUNICATION WILL BE SENT VIA SHARED MEDICAL RECORDS OR US MAIL. HISTORY OF PRESENT ILLNESS: Joi Long is a 67 year old female, Here today for F/U asthma. She also has a history of SUMA intolerant to CPAP. She is on Symbicort 160mcg 2 puffs BID, Spiriva Respimat and montelukast. She came down with COVID 01 December 2019. She needed to be admitted for 4 days at [facility]. She had prolonged long CIVID symptoms. She still has her chronic fatigue and chronic SOB. Walking 1 FOS. Sometimes she has to stop at the top. Not much coughing. She is not waking up from sleep w/ SOB. JUDI 01/13/2022. She was in [facility] a month ago with DKA. ASTHMA CONTROL TEST Date: 10/21/2022 In the last 4 weeks, how much of the time did your asthma keep you from getting as much done at work or home that you wanted to do? None of the time (5) In the last 4 weeks, how often have you had shortness of breath? More than once per day (1) In the last 4 weeks, how often did your asthma symptoms (wheezing, coughing, shortness of breath, chest tightness or pain) wake you up at night or earlier than usual? Not at all (5) In the last 4 weeks, how often have you used your rescue inhaler or nebulizer medication (such as Albuterol, Proventil, Ventolin, Maxair, Xoponex, or Primatene Mist)? Not at all (5) In the last 4 weeks, how would you rate your asthma control? Well controlled (4) Total: 20 01/13/2022 Total: 25 07/04/21: 18 06/04/2021 total: 13 05/02/2021: 21 12/07/2020: 17 PAST MEDICAL HISTORY Diagnosis Date Abnormal Papanicolaou smear of vagina and vaginal HPV Asthma Breast cancer (HCC) Fibromyalgia GERD (gastroesophageal reflux disease) HLD (hyperlipidemia) HTN (hypertension) Mitral valve disorders(424.0) SUMA on CPAP Other chest pain Other malaise and fatigue PMH - PAST MEDICAL HISTORY OF ELEVATED LIPIDS PMH - PAST MEDICAL HISTORY OF Irregular Heartbeat Shortness of breath PAST SURGICAL HISTORY Procedure Laterality Date APPENDECTOMY BACK SURGERY HX 2000, 2003, 2005 spinal fusion BLADDER SURGERY HX 12/2015 adjust bladder sling BREAST LUMPECTOMY HX 12/2018 COLONOSCOPY 2008 COLPOSCOPY CERVIX UPPER/ADJACENT VAGINA 2003 ENDOMETRIAL BX W/WO ENDOCERVIX BX W/O DILAT SPX 2003 KNEE SURGERY HX 07/2021 LIG/TRNSXJ FLP TUBE ABDL/VAG APPR UNI/BI Tubal ligation S LEAD/SPINAL CORD STIM 11/2017 removal SPINAL CORD STIM PERCT SCS ELCT 2002 TONSILLECTOMY PRIMARY/SECONDARY <AGE 12 Tonsillectomy TOTAL ABDOMINAL HYSTERECT W/WO RMVL TUBE OVARY 02/2015 w/bladder sling MEDICATIONS: gabapentin (NEURONTIN) 100 mg capsule five times daily. One in the morning, one with supper, and three at bedtime empagliflozin (JARDIANCE) 25 mg tablet Take 25 mg by mouth. tamoxifen (NOLVADEX) 20 mg tablet Take 1 tablet by mouth once daily. ipratropium-albuterol (DUONEB) 0.5 mg-3 mg(2.5 mg base)/3 mL nebu Inhale 3 mL as instructed four times daily. doxepin capsule 25 mg Take 25 mg by mouth daily at bedtime. glimepiride (AMARYL) 4 mg tablet Take 4 mg by mouth daily with breakfast. 4 mg in am 2 mg in pm budesonide-formoterol (SYMBICORT) 160-4.5 mcg/actuation inhaler Inhale 2 Puffs as instructed twice daily. semaglutide (OZEMPIC) 0.25 mg or 0.5 mg(2 mg/1.5 mL) pnij Inject 0.25 mg subcutaneously one time a week. DULoxetine (CYMBALTA) 30 mg capsule Take 60 mg by mouth every morning. MEDICATION, NON-DATABASE Take 1 Each by mouth once daily. Slim MEDICATION, NON-DATABASE Take 2 capsules by mouth daily at bedtime. Biocleanse losartan (COZAAR) 50 mg tablet Take 50 mg by mouth once daily. labetalol (TRANDATE) 300 mg tablet Take 200 mg by mouth twice daily. THERAPEUTIC MULTIVITAMIN TAB Take one(1) tablet daily. montelukast (SINGULAIR) 10 mg tablet Take 1 tablet by mouth once daily. VITAMIN B-12 2,500 mcg subl DISSOLVE 1 TABLET UNDER THE TONGUE ONCE DAILY (Patient not taking: Reported on 10/21/2022) canagliflozin (INVOKANA) 300 mg tablet Take 300 mg by mouth daily with breakfast. (Patient not taking: Reported on 10/21/2022) Mucus Clearing Device (FLUTTER) ricky 1 Device (Patient not taking: No sig reported) Allergies: Morphine, Steroids [Other], and Zesteretic [Other] ROS: GENERAL: no fevers, chills, night sweats, nausea/vomiting, change in appetite or weight changes. +fatigue HEENT: no headache, visual changes. NECK: no swelling in neck noted RESPIRATORY: SEE HPI CARDIOVASCULAR: no chest pain GI: no pain or difficulty with swallowing, no abdominal pain, diarrhea or constipation. : No c/o dysuria, hematuria, frequency or incontinence MUSCULOSKELETAL: Negative for joint pain or swelling, back pain or muscle pain. SKIN: Negative for lesions, rash, and itching. HEMATOLOGY/LYMPHOLOGY No C/O for prolonged bleeding, bruising easily or swollen nodes. ENDOCRINE: Negative for cold or heat intolerance, polyuria, polydipsia and goiter. NEURO: + lightheadedness. + brain fog. Sometimes gets numbness in her right side. PHYSICAL EXAM: BP 149/69 (BP Site: Right Arm, BP Position: Sitting, BP Cuff Size: Large Adult) Pulse 98 Resp 16 Ht 162.6 cm (5' 4) Wt 77.1 kg (170 lb) LMP 07/04/2007 SpO2 96% BMI 29.18 kg/m General- nad, comfortable Eyes- eomi, perrl ENT- mmm, oropharynx clear Neck- supple, no JVD CV- RRR Resp- clear to auscultation bilaterally, no wheezes or crackles, breathing nonlabored Abd- soft, nt, nd Ext- no clubbing, cyanosis, or edema Neuro- normal gait, no focal deficits Lymphatics - no supraclavicular or cervical lymphadenopathy Derm- no lesions/rashes Psych- appropriate mood and affect Labs / Imaging / Diagnostic Studies: 11/07/2020 Six minute walk Lowest pulse ox on room air 96% 1200 feet, 365 m -> 80% of predicted distance 09/06/2021 PFT FVC 2.88 L 92% FEV1 1.54 L 63% + 34% BD's (85%) Ratio 53 TLC 101% RV 111% RV/TLC 108% DLCO 89% FVL morphology -consistent with obstructive pattern. Spirometry 2014 FVC 2.8 L 83% FEV1 1.6 L 61% Ratio 57 Immunizations/Injections COVID-19 vaccine, age 12+ yr ([employer] - PURPLE TOP)10/04/2021, 12/20/2020, 11/29/2020 Pneumococcal-13 Vac Lacftimqj69/4/2016 Kdwnsttww84/3/2020, 09/14/2012 Tdap (Age 7+)05/28/2018 Hfzjxxmw78/11/2016 Influenza Seasonal Inj Quad Age 6 Mo-64 Yrs Pres Free07/22/2022 ASSESSMENT/PLAN: 1. Moderate persistent asthma without complication - ICD9: 493.90, ICD10: J45.40 (primary diagnosis) - -Continue Symbicort and Spiriva. Restart montelukast. - IPRATROPIUM 0.5 MG-ALBUTEROL 3 MG (2.5 MG BASE)/3 ML NEBULIZATION SOLN - NEBULIZER PRN - F/U 6 months 2. History of COVID-19 - ICD9: V12.09, ICD10: Z86.16 - Supportive care 3. Allergic rhinitis, unspecified seasonality, unspecified trigger - ICD9: 477.9, ICD10: J30.9 - Continue Flonase. - Avoidance of triggers Michoacano Braga MD FU 6 months Parts of the HPI, ROS, exam and impression/plan may have been copied from my previous clinical note and remain pertinent. Current changes have been made and documented today. Other parts of data were deleted if not relevant for today. I spent a total of 19 minutes on the date of the service which included preparing to see the patient, [id number] patient care, completing clinical documentation, obtaining and/or reviewing separately obtained history, performing a medically appropriate examination, counseling and educating the patient/family/caregiver, ordering medications, tests, or procedures, communicating with other HCPs (not separately reported), independently interpreting results (not separately reported), and communicating results to the patient/family/caregiver. documented in this encounter [facility] 01-13-2022 History of Presen t illness Narrative Images from the original note were not included. . Pulmonary Clinic Follow-up Note Patient Name: Joi Long PRIMARY CARE PHYSICIAN: No primary care provider on file. Date of visit: 01/13/2021 COMMUNICATION WILL BE SENT VIA SHARED MEDICAL RECORDS OR US MAIL. HISTORY OF PRESENT ILLNESS: Joi Long is a 65 year old female, Here today for yearly F/U asthma. She also has a history of SUMA intolerant to CPAP. She is on Symbicort 160mcg 2 puffs BID, Spiriva Respimat and montelukast. She came down with COVID 19 at the end of November. She needed to be admitted for 4 days at [facility] case. Fortunately did not need to be admitted to the ICU. Pt feels she is still SOB from the COVID 19 illness. SOB with 1 FOS. Still with a lingering cough is improved. +Brain fog, + SOB, fatigue. Feels imbalanced and has fallen 2x, + orthostatic dizziness as well. She needs arthoscopic right knee surgery. She had her knee surgery last . Was able to go home the same. + post nasal gtt with frequent throat clearing and cough. This started w/ the fall. Recently diagnosed with Fibromyalgia. She is on gabapentin. ASTHMA CONTROL TEST Date: 01/13/2022 1. In the last 4 weeks, how much of the time did your asthma keep you from getting as much done at work or home that you wanted to do? None of the time (5) 2. In the last 4 weeks, how often have you had shortness of breath? Not at all (5) 3. In the last 4 weeks, how often did your asthma symptoms (wheezing, coughing, shortness of breath, chest tightness or pain) wake you up at night or earlier than usual? Not at all (5) 4. In the last 4 weeks, how often have you used your rescue inhaler or nebulizer medication (such as Albuterol, Proventil, Ventolin, Maxair, Xoponex, or Primatene Mist)? Not at all (5) 5. In the last 4 weeks, how would you rate your asthma control? Completely controlled (5) Total: 25 07/04/21: 18 06/04/2021 total: 13 05/02/2021: 21 12/07/2020: 17 PAST MEDICAL HISTORY Diagnosis Date Abnormal Papanicolaou smear of vagina and vaginal HPV Asthma Breast cancer (HCC) Fibromyalgia GERD (gastroesophageal reflux disease) HLD (hyperlipidemia) HTN (hypertension) Mitral valve disorders(424.0) SUMA on CPAP Other chest pain Other malaise and fatigue PMH - PAST MEDICAL HISTORY OF ELEVATED LIPIDS PMH - PAST MEDICAL HISTORY OF Irregular Heartbeat Shortness of breath PAST SURGICAL HISTORY Procedure Laterality Date APPENDECTOMY BACK SURGERY HX 2001, 2004, 2005 spinal fusion BLADDER SURGERY HX 12/2015 adjust bladder sling BREAST LUMPECTOMY HX 12/2018 COLONOSCOPY 2008 COLPOSCOPY CERVIX UPPER/ADJACENT VAGINA 2003 ENDOMETRIAL BX W/WO ENDOCERVIX BX W/O DILAT SPX 2003 KNEE SURGERY HX 07/2021 LIG/TRNSXJ FLP TUBE ABDL/VAG APPR UNI/BI Tubal ligation S LEAD/SPINAL CORD STIM 11/2017 removal SPINAL CORD STIM PERCT SCS ELCT 2002 TONSILLECTOMY PRIMARY/SECONDARY <AGE 12 Tonsillectomy TOTAL ABDOMINAL HYSTERECT W/WO RMVL TUBE OVARY 02/2015 w/bladder sling MEDICATIONS: gabapentin (NEURONTIN) 100 mg capsule five times daily. One in the morning, one with supper, and three at bedtime VITAMIN B-12 2,500 mcg subl DISSOLVE 1 TABLET UNDER THE TONGUE ONCE DAILY empagliflozin (JARDIANCE) 25 mg tablet Take 25 mg by mouth. tamoxifen (NOLVADEX) 20 mg tablet Take 1 tablet by mouth once daily. ipratropium-albuterol (DUONEB) 0.5 mg-3 mg(2.5 mg base)/3 mL nebu Inhale 3 mL as instructed four times daily. doxepin capsule 25 mg Take 25 mg by mouth daily at bedtime. glimepiride (AMARYL) 4 mg tablet Take 4 mg by mouth daily with breakfast. 4 mg in am 2 mg in pm budesonide-formoterol (SYMBICORT) 160-4.5 mcg/actuation inhaler Inhale 2 Puffs as instructed twice daily. semaglutide (OZEMPIC) 0.25 mg or 0.5 mg(2 mg/1.5 mL) pnij Inject 0.25 mg subcutaneously one time a week. canagliflozin (INVOKANA) 300 mg tablet Take 300 mg by mouth daily with breakfast. DULoxetine (CYMBALTA) 30 mg capsule Take 60 mg by mouth every morning. MEDICATION, NON-DATABASE Take 1 Each by mouth once daily. Slim MEDICATION, NON-DATABASE Take 2 capsules by mouth daily at bedtime. Biocleanse losartan (COZAAR) 50 mg tablet Take 50 mg by mouth once daily. labetalol (TRANDATE) 300 mg tablet Take 200 mg by mouth twice daily. THERAPEUTIC MULTIVITAMIN TAB Take one(1) tablet daily. Mucus Clearing Device (FLUTTER) ricky 1 Device Allergies: Morphine, Steroids [Other], and Zesteretic [Other] ROS: GENERAL: no fevers, chills, night sweats, nausea/vomiting, change in appetite or weight changes. +fatigue HEENT: no headache, visual changes. NECK: no swelling in neck noted RESPIRATORY: SEE HPI CARDIOVASCULAR: no chest pain GI: no pain or difficulty with swallowing, no abdominal pain, diarrhea or constipation. : No c/o dysuria, hematuria, frequency or incontinence MUSCULOSKELETAL: Negative for joint pain or swelling, back pain or muscle pain. SKIN: Negative for lesions, rash, and itching. HEMATOLOGY/LYMPHOLOGY No C/O for prolonged bleeding, bruising easily or swollen nodes. ENDOCRINE: Negative for cold or heat intolerance, polyuria, polydipsia and goiter. NEURO: + lightheadedness. + brain fog. - syncope PHYSICAL EXAM: BP 169/88 (BP Site: Right Arm, BP Position: Sitting, BP Cuff Size: Regular Adult) Pulse 81 Temp 36.6 C (97.9 F) (Temporal) Resp 18 Ht 162.6 cm (5' 4.02) Wt 84.1 kg (185 lb 6.4 oz) LMP 07/04/2007 SpO2 97% BMI 31.81 kg/m General- nad, comfortable Eyes- eomi, perrl ENT- mmm, oropharynx clear Neck- supple, no JVD CV- RRR Resp- clear to auscultation bilaterally, no wheezes or crackles, breathing nonlabored Abd- soft, nt, nd Ext- no clubbing, cyanosis, or edema Neuro- normal gait, no focal deficits Lymphatics - no supraclavicular or cervical lymphadenopathy Derm- no lesions/rashes Psych- appropriate mood and affect Labs / Imaging / Diagnostic Studies: 11/07/2020 Six minute walk Lowest pulse ox on room air 96% 1200 feet, 365 m -> 80% of predicted distance 09/06/2021 PFT FVC 2.88 L 92% FEV1 1.54 L 63% + 34% BD's (85%) Ratio 53 TLC 101% RV 111% RV/TLC 108% DLCO 89% FVL morphology -consistent with obstructive pattern. Spirometry 2014 FVC 2.8 L 83% FEV1 1.6 L 61% Ratio 57 Immunizations/Injections COVID-19 vaccine, age 12+ yr ([employer] - [employer])10/04/2021, 12/20/2020, 11/29/2020 Pneumococcal-13 Vac Nwzrmymaz03/4/2016 Qbknytcke21/3/2020, 09/14/2012 Tdap (Age 7+)05/28/2018 Whauyyoi18/11/2016 DATA: Diagnostic tests reviewed for today's visit, films/specimens were personally reviewed by me: Above pasted testing, my last office note. ASSESSMENT/PLAN: 1. Moderate persistent asthma without complication - ICD9: 493.90, ICD10: J45.40 (primary diagnosis) - -Continue Symbicort. Can stay off montelukast. - IPRATROPIUM 0.5 MG-ALBUTEROL 3 MG (2.5 MG BASE)/3 ML NEBULIZATION SOLN - NEBULIZER PRN - F/U 6 months 2. History of COVID-19 - ICD9: V12.09, ICD10: Z86.16 - IPRATROPIUM 0.5 MG-ALBUTEROL 3 MG (2.5 MG BASE)/3 ML NEBULIZATION SOLN NEBULIZER PRN 3. Allergic rhinitis, unspecified seasonality, unspecified trigger - ICD9: 477.9, ICD10: J30.9 - Continue OTC nasal sprays - Avoidance of triggers Michoacano Braga MD FU 6 months Parts of the HPI, ROS, exam and impression/plan may have been copied from my previous clinical note and remain pertinent. Current changes have been made and documented today. Other parts of data were deleted if not relevant for today. documented in this encounter [facility] 02-14-2021 History of Presen t illness Narrative Radiology Service Progress Note PATIENT NAME: Joi Long DATE OF SERVICE: February 14, 2021 TIME: 10:29 AM PATIENT IDENTITY VERIFICATION COMPLETED USING TWO (2) IDENTIFIERS: Name and Date of confirmed by patient verbally. FALL SCREENING: Has the patient had 2 falls in the last year or 1 fall with injury or currently using an Ambulatory Assistive Device (Walker, Cane, Wheelchair, Crutches, etc.)? No PATIENT GENDER DATA: Female. status: : No status: NO. PATIENT RELEVANT IMPLANT DATA REVIEWED: Yes RADIOLOGY DEPARTMENT: General X-ray: Exam(s) Completed: Chest X-Ray PERIPHERAL IV DATA: Not applicable SIGNED BY: RT Gail(R) February 14, 2021 10:29 AM documented in this encounter [facility] 01-28-2021 Note HNO ID: [id number] Author: RT Chrissie(Kaleigh) Service: ? Author Type: Inner Tube Inserter Type: Progress Notes Filed: 01/28/2021 3:53 PM Note Text: Radiology Service Progress Note PATIENT NAME: Joi Long DATE OF SERVICE: January 28, 2021 TIME: 3:52 PM PATIENT IDENTITY VERIFICATION COMPLETED USING TWO (2) IDENTIFIERS: Name and Date of confirmed by patient verbally. FALL SCREENING: Has the patient had 2 falls in the last year or 1 fall with injury or currently using an Ambulatory Assistive Device (Walker, Cane, Wheelchair, Crutches, etc.)? No PATIENT GENDER DATA: Female. status: : No status: NO. PATIENT RELEVANT IMPLANT DATA REVIEWED: Not Applicable RADIOLOGY DEPARTMENT: General X-ray: Exam(s) Completed: Chest X-Ray PERIPHERAL IV DATA: Not applicable SIGNED BY: RT Chrissie(R) January 28, 2021 3:52 PM [facility] 08-23-2012 History of Past i llness Narrative Problem Noted Date Resolved Date Cystocele 08/23/2012 11/30/2017 Unspecified asthma(493.90) 09/15/200611/30 Shortness of breath 11/30/2017 Other malaise and fatigue 2017 Other chest pain 11/30/2017 documented as of this encounter (statuses as of 01/13/2022) [facility] History of Past illness Narrative* Problem Noted Date Resolved Date Cystocele 08/23/2012 11/30/2017 Unspecified asthma(493.90) 09/15/200611/30 Shortness of breath 11/30/2017 Other malaise and fatigue 2017 Other chest pain 11/30/2017 documented as of this encounter (statuses as of 10/22/2022) [facility] Diagnosis Moderate persistent asthma without complication- Primary Unspecified asthma History of COVID-19 documented [facility] this [facility] noteNo assessment information [facility] Work Phone: Evaluation note* Diagnosis Onset Date Resolution Status DKA (diabetic ketoacidosis) acute Nausea & vomiting acute Tachycardia acute Essential hypertension chron ic Hypertension [facility] Work Phone: Evaluation note* Diagnosis Onset Date Resolution Status DKA (diabetic ketoacidosis) acute Nausea & vomiting acute Tachycardia acute Essential hypertension chron ic Hypertension chronic Type 2 diabetes mellitus chr onic [facility] Work Phone: Evaluation note* Diagnosis Moderate persistent asthma without complication- Primary Unspecified asthma History of COVID-19 Chronic fatigue syndrome [facility] Diagnosis Onset Date Resolution Status DKA (diabetic ketoacidosis) resolved Nausea & vomiting resolved Tachycardia resolved [facility] Work Phone: Evaluation note* Diagnosis Screening mammogram, encounter for documented in this encounter [facility] note* Diagnosis Ductal carcinoma in situ (DCIS) of left breast- Primary documented in this encounter [facility] note* Diagnosis Ductal carcinoma in situ (DCIS) of left breast documented in this encounter [facility] note* Diagnosis Encounter for screening mammogram for breast cancer- Primary Ductal carcinoma in situ (DCIS) of left breast documented in this encounter [facility] note* Diagnosis Moderate persistent asthma without complication- Primary Unspecified asthma History of COVID-19 Post-COVID chronic shortness of breath [facility]* Diagnosis Post-COVID chronic shortness of breath [facility]* Diagnosis Moderate persistent asthma without complication- Primary Unspecified asthma [facility]* Diagnosis Encounter for gynecological examination with abnormal finding- Primary Routine gynecological examination Cystocele, midline Urinary frequency Lichen sclerosus et atrophicus Circumscribed scleroderma [facility] Diagnosis Cystocele, midline- Primary Urinary frequency [facility]* Diagnosis Moderate persistent asthma without complication Unspecified asthma [facility]* Diagnosis Post-COVID chronic shortness of breath [facility]* Diagnosis Post-COVID chronic shortness of breath [facility]* Diagnosis Tachycardia- Primary Tachycardia, unspecified Moderate persistent asthma without complication Unspecified asthma Post-COVID chronic shortness of breath [facility]* Diagnosis Tachycardia Tachycardia, unspecified [facility]* Diagnosis History of COVID-19 [facility]* Diagnosis Ductal carcinoma in situ (DCIS) of left breast Encounter for screening mammogram for breast cancer documented in this encounter [facility] note* Diagnosis Ductal carcinoma in situ (DCIS) of left breast documented in this encounter [facility] note* Diagnosis Lichen sclerosus et atrophicus- Primary Circumscribed scleroderma Urinary urgency Urgency of urination Skin yeast infection Candidiasis of skin and nails * Assessment & Plan Note - Nora Barton MD - 03/29/2025 10:10 AM EDT Associated Problem(s): Lichen sclerosus et atrophicus reviewed biopsy, not c/w lichen scelorosis, more chronic inflammation and yeast. 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 It can be used 1- 2 times a day as needed for 7-10 days for flare ups or recurrences. Medication Manager skin hygiene reviewed documented in this encounter [facility] note* Diagnosis Onset Date Resolution Status Admit Date Claudication acute June 22, 2025 9:09am PAD (peripheral artery disease) acut e June 22, 2025 9:09am [facility] Work Phone: Reason for referral (narrative)* Outpatient Procedure (Routine) - Authorized Specialty Diagnoses / Procedures Referred By Contac t Referred To [facility] Diagnoses Moderate persistent asthma without complication Procedures NITRIC OXIDE, EXHALED NITRIC OXIDE GAS DETERMINATION Michoacano Braga MD [address] [place] [address] [address] Referral ID Status Reason Start Date Expiration Date Visits Requested Visits Authorized [id number] Authorized Auto-Generat ed Referral 03/24/2024 04/23/2025 1 1 * Outpatient Procedure (Routine) - Authorized Specialty Diagnoses / Procedures Referred By Contac t Referred To Contact [facility] Diagnoses Post-COVID chronic shortness of breath Procedures LUNG VOLUMES Michoacano Braga MD [address] [place] [id number] [address] Referral ID Status Reason Start Date Expiration Date Visits Requested Visits Authorized [id number] Authorized Auto-Generat ed Referral 03/24/2024 04/23/2025 1 1 * Outpatient Procedure (Routine) - Authorized Specialty Diagnoses / Procedures Referred By Contac t Referred To Contact [facility] [place] Diagnoses Post-COVID chronic shortness of breath Procedures LUNG DIFFUSION CAPACITY (DLCO) DIFFUSING CAPACITY Michoacano Braga MD [address] [place] [id number] [address] Referral ID Status Reason Start Date Expiration Date Visits Requested Visits Authorized [id number] Authorized Auto-Generat ed Referral 03/24/2024 04/23/2025 1 1 * Outpatient Procedure (Routine) - Authorized Specialty Diagnoses / Procedures Referred By Contac t Referred To [facility] [place] Diagnoses Post-COVID chronic shortness of breath Procedures SPIROMETRY WITH DILATOR IF OBSTRUCTED BRNCDILAT RSPSE SPMTRY PRE&POST-BRNCDILAT ADMN Michoacano Braga MD [address] [place] [address] Respiratory [address] [place] [address] Referral ID Status Reason Start Date Expiration Date Visits Requested Visits Authorized [id number] Authorized Auto-Generat ed Referral 03/24/2024 04/23/2025 1 1 * Outpatient Procedure (Routine) - Authorized Specialty Diagnoses / Procedures Referred By Contac t Referred To Contact [facility] [place] Diagnoses Post-COVID chronic shortness of breath Procedures ECHO ECHO TTHRC R-T 2D W/WOM-MODE COMPL SPEC&COLR Michoacano Peguero MD [address] [place] [id number] [address] Referral ID Status Reason Start Date Expiration Date Visits Requested Visits Authorized [id number] Authorized Auto-Generat ed Referral 03/24/2024 03/24/2025 1 1 [facility] for referral (narrative)* Outpatient Procedure (Routine) - Closed Specialty Diagnoses / Procedures Referred By Contac t Referred To Contact [facility] Diagnoses Post-COVID chronic shortness of breath Procedures ECHO ECHO TTHRC R-T 2D W/WOM-MODE COMPL SPEC&COLMichoacano Kang MD [address] [place] [id number] [facility] [address] [address] Referral ID Status Reason Start Date Expiration Date V isits Requested Visits Authorized [id number] Closed Auto-Generate d Referral 03/24/2024 03/24/2025 1 1 [facility] for referral (narrative)No reason for referral information availableWOhio [facility] Work Phone: Reason for visit Narrative* Outpatient Procedure (Routine) - Closed Specialty Diagnoses / Procedures Referred By Contac t Referred To Contact [facility] [place] Diagnoses Post-COVID chronic shortness of breath Procedures ECHO ECHO TTHRC R-T 2D W/WOM-MODE COMPL SPEC&COLR D Michoacano Braga MD [address] [place] [address] [facility] [place] [address] [place] [address] Referral ID Status Reason Start Date Expiration Date V isits Requested Visits Authorized [id number] Closed Auto-Generate d Referral 03/24/2024 03/24/2025 1 1 [facility] Summary Purpose Family History No Family History Records Found Relationship Condition Age at Onset Recorded Date/T ness father Hypertension Unknown mother Hypertension Unknown Advance Directives No Advanced Directives Records FoundDocuments on File Type Date Recorded Patient Public Transportation Inspector Expl anation Advance Directives and Living Will Power of Material Control Clerk Latest Code Status on File Code Status Date Activated Date Inactivated Comments Full Code 12/27/2018 9:39 AM 12/27/2018 7:31 PM Documents on File Type Date Recorded Patient Public Transportation Inspector Expl anation Advance Directives and Living Will Power of Material Control Clerk Latest Code Status on File Code Status Date Activated Date Inactivated Comments Full Code 12/27/2018 9:39 AM 12/27/2018 7:31 PM Documents on File Type Date Recorded Patient Public Transportation Inspector Expl anation ACP-Advance Directive ACP-Power of Material Control Clerk Documents on File Type Date Recorded Patient Public Transportation Inspector Expl anation Advance Directive(s) 12/03/2017 11:09 AM Advance Directive(s) 11/25/2017 9:03 AM Advance Directive Response Recorded Date/ Time Advance Directives No December 24 8:32am Living Will No July 21 7:39pm Power of Material Control Clerk No July 21, 2021 7:39pm Advance Directive Response Recorded Date/ Time Advance Directives No December 24 016 7:32am Living Will No July 21 6:39pm Power of Material Control Clerk No July 21, 2021 6:39pm Advance Directive Response Recorded Date/ Time Advance Directives No December 24 016 7:32am Living Will No September 22 3 5:48am Power of Material Control Clerk No September 22 023 5:48am Advance Directive Response Recorded Date/ Time Advance Directives No December 24 016 7:32am Living Will No September 22 3 12:43pm Power of Material Control Clerk No [place] [address], 2 023 12:43pm Advance Directive Response Recorded Date/ Time Advance Directives No December 24, 2 016 8:32am Living Will No September 22 3 1:43pm Power of Material Control Clerk No September 22, 2 023 1:43pm Advance Directive Response Recorded Date/ Time Advance Directives No December 24, 2 016 8:32am History of Present Illness * Chaz Meyers MD - 03/31/2019 10:43 AM EDT PATIENT: JOI LONG DATE OF SERVICE: 03/31/2019 : 1955 AGE: 64 Electronically Authenticated Chaz Meyers MD 04/03/2019 10:35 P This is a short on treatment note for the patient at [facility]. 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 The patient also has a history of significant chronic back pain and treatment for same with 3 back surgeries including nerve stimulator stopped working, removed last year. The patient is undergoing adjuvant left whole breast radiation currently for her DCIS breast cancer. The patient is currently suffering from depression, ICD code F33.8, scheduled to see a psychologist, Makenna Parker, PhD next March. The patient is currently having no appetite, not sleeping, informed us of her depression on Thursday, March 28, 2019 during our on-treatment visit. HISTORY OF PRESENT ILLNESS: This is a 64-year-old white female, who has somewhat estrangement from her 3 kids, all live within 10 minutes of her, in fact she specifically noted that one daughter actually picks up kids right across the street on a daily basis, but has failed to come by her mother and visit her. She also misses opportunity being with her grandchildren as well. She also has suffered significantly from the pain in her left breast from infections that required repeat aspirations. Mrs. Long concern is that she has no appetite, unable to sleep. RECOMMENDATIONS: Checked her drug interactions and prescribed her Zoloft 25 mg p.o. 1 tablet each day until she sees a psychologist, Dr. Parker as they are getting near the weekend and concern about her overall mental state at this point. She also was seen by the [facility] Luz Peres as well today; who gave her a CD to listen to deal with anxiety and concerns associated with cancer. Singh Job ID: [id number] Chaz Meyers MD DOD:03/31/2019 10:02 A OES/dsk DOT:03/31/201910:43 A cc: Alvaro Hyman MD [address] [facility] [id number] * Chaz Meyers MD - 01/13/2019 11:59 PM EDT PATIENT: JOI LONG DATE OF SERVICE: 01/24/2019 : 1955 AGE: 64 Electronically Authenticated Chaz Meyers MD 01/25/2019 03:05 P THIS IS A EVALUATION NOTE DIAGNOSIS: Left breast DCIS, ICD code D05.12. HISTORY: The patient came in today after being seen by Dr. Hyman, she has had 2 evaluations in aspiration postsurgical for localized infection in her left breast. Initially, her breast was quite heavy on initial consultation, and was 1+ erythema and tender. On initial aspiration, 100 cc was removed, and last week an additional 20 cc were removed. The patient has also been on antibiotic therapy. The patient comes in with less tenderness in her left breast and less heaviness. This is confirmed on examination. The patient signed consent for treatment to her left breast, because of complications with infection after surgery, recommended a slower course of whole breast radiation therapy of 2 Gy per day to 50 Gy with a 10 Gy boost as per old standard versus new guidelines due to infection. This gives opportunity to go slower, and if she does develop infection, we have an opportunity to stop her treatment for few days and continue as planned. The patient signed consent for multiple complications of swelling in her breast, infection returning, slight lung damage; the patient has a history of bronchitis in the past. Also, elevation of left breast, rib fracture, heart injury, which can be avoided if need be with ABC breathing control device, though we will simulate her at the [facility] initially, as usually the left ventricle can be avoided in the tangential simon in most cases. DISPOSITION: The patient signed consent for CT simulation on February 24 at 9:40 a.m. in the [facility]. Diskriter Job ID: [id number] Chaz Meyers MD DOD:01/24/2019 11:53 A OES/dsk DOT:01/24/201901:51 P cc: Alvaro Hyman MD [address] [place] [id number] documented in this encounter Reason for Referral Status Reason Specialty Diagnoses / Procedures Referre d By Contact Referred To Contact [facility] Diagnoses Ductal carcinoma in situ (DCIS) of left breast Disorder of bone density and structure, unspecified Procedures DEXA Bone Density Axial Skeleton Lee Miller MD [address] [facility] [place] [address] Assessments Diagnosis Ductal carcinoma in situ (DCIS) of left breast Disorder of bone density and structure, unspecified Chief Complaint and Reason for Visit Chief Complaint EORDER Chief Complaint EORDER DKA Reason for Visit DKA (diabetic ketoac idosis) Nausea & vomiting Tachycardia Essential hypertension Hypertension Chief Complaint EORDER DKA DKA DKA Reason for Visit DKA (diabetic ketoac idosis) Nausea & vomiting Tachycardia Essential hypertension Hypertension Type 2 diabetes mellitus Chief Complaint EORDER DKA DKA DKA Reason for Visit DKA (diabetic ketoac idosis) Nausea & vomiting Tachycardia Chief Complaint DKA DKA DKA Reason for Visit DKA (diabetic ketoac idosis) Nausea & vomiting Tachycardia Chief Complaint Admit Date SCREENING February 16, 2025 11:33 am Chief Complaint Admit Date SCREENING February 16, 2025 11:33 am PERIPHERAL VASCULAR DISEASE May 252024 12:50pm Chief Complaint Admit Date PERIPHERAL VASCULAR DISEASE May 252024 12:50pm Impaired blood flow, LLE June 22 9:09am Reason for Visit Admit Date Claudication June 22, 2025 9: 09am PAD (peripheral artery disease) June 22, 2025 9:09am Additional Source Comments INFORMATION SOURCE (unrecogn ized section and content) DATE CREATED AUTHOR 12/27/2018 [facility] DATE CREATED AUTHOR AUTHOR'S ORGANIZ ATION 02/28/2020 [facility] DATE CREATED AUTHOR AUTHOR'S ORGANIZ ATION 01/30/2021 [facility] DATE CREATED AUTHOR AUTHOR'S ORGANIZ ATION 06/14/2022 [facility] DATE CREATED AUTHOR AUTHOR'S ORGANIZ ATION 05/22/2024 [facility] DATE CREATED AUTHOR AUTHOR'S ORGANIZ ATION 04/07/2025 [facility] DATE CREATED AUTHOR AUTHOR'S ORGANIZ ATION 05/12/2025 [facility] DATE CREATED AUTHOR AUTHOR'S ORGANIZ ATION 06/24/2025 [facility] Source Comments (unrecognize d section and content) In the event this informatio n is protected by the Federal Confidentiality of Alcohol and Drug Abuse Patient Records regulations: The Federal rules restrict any use of the information to criminally investigate or prosecute any alcohol or drug abuse patient.[facility] the event this information is protected by the Federal Confidentiality of Alcohol and Drug Abuse Patient Records regulations: The Federal rules restrict any use of the information to criminally investigate or prosecute any alcohol or drug abuse patient.[facility] the event this information is protected by the Federal Confidentiality of Alcohol and Drug Abuse Patient Records regulations: The Federal rules restrict any use of the information to criminally investigate or prosecute any alcohol or drug abuse patient.[facility] the event this information is protected by the Federal Confidentiality of Alcohol and Drug Abuse Patient Records regulations: The Federal rules restrict any use of the information to criminally investigate or prosecute any alcohol or drug abuse patient.[facility] the event this information is protected by the Federal Confidentiality of Alcohol and Drug Abuse Patient Records regulations: The Federal rules restrict any use of the information to criminally investigate or prosecute any alcohol or drug abuse patient.[facility] Center[facility] the event this information is protected by the Federal Confidentiality of Alcohol and Drug Abuse Patient Records regulations: The Federal rules restrict any use of the information to criminally investigate or prosecute any alcohol or drug abuse patient.[facility] Center[facility] the event this information is protected by the Federal Confidentiality of Alcohol and Drug Abuse Patient Records regulations: The Federal rules restrict any use of the information to criminally investigate or prosecute any alcohol or drug abuse patient.[facility] Center[facility] the event this information is protected by the Federal Confidentiality of Alcohol and Drug Abuse Patient Records regulations: The Federal rules restrict any use of the information to criminally investigate or prosecute any alcohol or drug abuse patient.[facility] Center[facility] the event this information is protected by the Federal Confidentiality of Alcohol and Drug Abuse Patient Records regulations: The Federal rules restrict any use of the information to criminally investigate or prosecute any alcohol or drug abuse patient.[facility] Center[facility] the event this information is protected by the Federal Confidentiality of Alcohol and Drug Abuse Patient Records regulations: The Federal rules restrict any use of the information to criminally investigate or prosecute any alcohol or drug abuse patient.[facility] Center[facility] the event this information is protected by the Federal Confidentiality of Alcohol and Drug Abuse Patient Records regulations: The Federal rules restrict any use of the information to criminally investigate or prosecute any alcohol or drug abuse patient.[facility] Center[facility] the event this information is protected by the Federal Confidentiality of Alcohol and Drug Abuse Patient Records regulations: The Federal rules restrict any use of the information to criminally investigate or prosecute any alcohol or drug abuse patient.[facility] Center[facility] the event this information is protected by the Federal Confidentiality of Alcohol and Drug Abuse Patient Records regulations: The Federal rules restrict any use of the information to criminally investigate or prosecute any alcohol or drug abuse patient.[facility] Center[facility] the event this information is protected by the Federal Confidentiality of Alcohol and Drug Abuse Patient Records regulations: The Federal rules restrict any use of the information to criminally investigate or prosecute any alcohol or drug abuse patient.[facility] CenterIn the event this information is protected by the Federal Confidentiality of Alcohol and Drug Abuse Patient Records regulations: The Federal rules restrict any use of the information to criminally investigate or prosecute any alcohol or drug abuse patient.[facility] CenterIn the event this information is protected by the Federal Confidentiality of Alcohol and Drug Abuse Patient Records regulations: The Federal rules restrict any use of the information to criminally investigate or prosecute any alcohol or drug abuse patient.[facility] CenterIn the event this information is protected by the Federal Confidentiality of Alcohol and Drug Abuse Patient Records regulations: The Federal rules restrict any use of the information to criminally investigate or prosecute any alcohol or drug abuse patient.[facility] CenterIn the event this information is protected by the Federal Confidentiality of Alcohol and Drug Abuse Patient Records regulations: The Federal rules restrict any use of the information to criminally investigate or prosecute any alcohol or drug abuse patient.[facility] CenterIn the event this information is protected by the Federal Confidentiality of Alcohol and Drug Abuse Patient Records regulations: The Federal rules restrict any use of the information to criminally investigate or prosecute any alcohol or drug abuse patient.[facility] CenterIn the event this information is protected by the Federal Confidentiality of Alcohol and Drug Abuse Patient Records regulations: The Federal rules restrict any use of the information to criminally investigate or prosecute any alcohol or drug abuse patient.[facility] CenterIn the event this information is protected by the Federal Confidentiality of Alcohol and Drug Abuse Patient Records regulations: The Federal rules restrict any use of the information to criminally investigate or prosecute any alcohol or drug abuse patient.[facility] Reason for Visit (unrecogniz ed section and content) Reason Comments Asthma Reason Comments F/U 6 months Reason Comments Follow-up Yearly follow up mae oint Reason Comments Follow-up Reason Comments Follow-up Left Breast CA Reason Comments Follow-up 1 Year Reason Comments Follow Up Pt need refill on in [place]. Asthma Reason Onset Date Comments Refill Request 03/28/2024 Reason Comments Well Woman Reason Comments Pessary Reason Comments Follow Up PVR Reason Comments Shortness of Breath Specialty Diagnoses / Procedures Referred By Contac t Referred To Contact [facility] Diagnoses Moderate persistent asthma without complication Procedures NITRIC OXIDE, EXHALED NITRIC OXIDE GAS DETERMINATION Michoacano Braga MD [address] [place] [id number] [facility] [place] [address] [place], [place] [id number] Referral ID Status Reason Start Date Expiration Date V isits Requested Visits Authorized [id number] Closed Auto-Generate d Referral 03/24/2024 04/23/2025 1 1 Reason Comments Spirometry Specialty Diagnoses / Procedures Referred By Contac t Referred To [facility] Diagnoses Post-COVID chronic shortness of breath Procedures LUNG DIFFUSION CAPACITY (DLCO) DIFFUSING CAPACITY Michoacano Braga MD [address] [address] [facility] [place] [address] [place] [id number] Referral ID Status Reason Start Date Expiration Date V isits Requested Visits Authorized [id number] Closed Auto-Generate d Referral 03/24/2024 04/23/2025 1 1 Specialty Diagnoses / Procedures Referred By Contac t Referred To Contact [facility] Diagnoses Post-COVID chronic shortness of breath Procedures SPIROMETRY WITH DILATOR IF OBSTRUCTED BRNCDILAT RSPSE SPMTRY PRE&POST-BRNCDILAT ADMN Michoacano Braga MD [address] [place] [phone] [address] Referral ID Status Reason Start Date Expiration Date V isits Requested Visits Authorized [id number] Closed Auto-Generate d Referral 03/24/2024 04/23/2025 1 1 Specialty Diagnoses / Procedures Referred By Contac t Referred To Contact [facility] Diagnoses Post-COVID chronic shortness of breath Procedures LUNG VOLUMES Michoacano Braga MD [address] [place] [phone] [facility] [place] [address] [place] [address] Referral ID Status Reason Start Date Expiration Date V isits Requested Visits Authorized [id number] Closed Auto-Generate d Referral 03/24/2024 04/23/2025 1 1 Reason Comments Follow Up Review labs Reason Comments Refill Request Reason Comments Yearly Exam Reason Comments Med Refill Reason Comments Follow Up Care Teams (unrecognized sec tion and content) It Security Manager Relationship Specialty Start Date End Date Gregg Anton MD [address] [facility] [place] [place] [phone] PCP - General Family Practice 01/28/21 It Security Manager Relationship Specialty Start Date End Date Gregg Anton MD [address] [facility] [place] [address] PCP - General Family Medicine 01/28/21 Team Status: Active Member Role Status Dates Dr. Gregg Anton MD Family Provider Active Dr. Gregg Anton MD Primary Care Provider Active Team Status: Active Member Role Status Dates Dr. Gregg Anton MD Primary Care Provider Active Dr. Benito Walters DO Emergency Provider Active Dr. Michelet Tariq MD Admit Provider, A ttending Provider, Other Provider Active Team Status: Inactive Member Role Status Dates Dr. Gregg Anton MD Primary Care Provider, Attending Alessia bailon Active Team Status: Inactive Member Role Status Dates Dr. Gregg Anton MD Primary Care Provider Active Dr. Benito Walters DO Emergency Provider Active Dr. Michelet Tariq MD Admit Provider, Attending Provi mary Active Team Status: Inactive Member Role Status Dates Dr. Gregg Anton MD Primary Care Provider Active Ophelia Salinas NP, PAINTER SPRING-C Attending Provider Active Team Status: Inactive Member Role Status Dates Dr. Gregg Anton MD Primary Care Provide r, Attending Provider, Referring Provider Active Team Status: Inactive Member Role Status Dates Dr. Gregg Anton MD Primary Care Provider Active Ingris Jolley NP-C Attending Provider Active It Security Manager Relationship Specialty Start Date End Date Gregg Anton [address] [place] [address] PCP - General 07/05/19 It Security Manager Relationship Specialty Start Date End Date Gregg Anton [address] [facility] [address] [place] [phone] PCP - General 07/05/19 Lee Miller MD [address] [facility] [address] [place], [place] [phone] Consulting Physician Hematology and Oncology 03/05/23 It Security Manager Relationship Specialty Start Date End Date Gregg Anton [address] [facility] [address] [place] [phone] PCP - General 07/05/19 Lee Miller MD [address] [facility] [address] [place] [address] Consulting Physician Hematology and Oncology 03/05/23 Team Status: Inactive Member Role Status Dates Dr. Gregg Anton MD Primary Care Provider Active Dr. Jennifer Juares DO Attending Provider Active It Security Manager Relationship Specialty Start Date End Date Gregg Anton [address] [facility] [address] [place] [phone] PCP - General 07/05/19 Lee Miller MD [address] [facility] [address] [place], [place] [phone] Consulting Physician Hematology and Oncology 03/05/23 It Security Manager Relationship Specialty Start Date End Date Gregg Anton [address] [facility] [address] [place] [address] PCP - General 07/05/19 Lee Miller MD [address] [place] [address] [address] [place] [address] Consulting Physician Hematology and Oncology 03/05/23 It Security Manager Relationship Specialty Start Date End Date Gregg Anton MD [address] [place] [address] PCP - General Family Medicine 01/28/21 It Security Manager Relationship Specialty Start Date End Date Gregg Anton MD [address] [place] [address] PCP - General Family Medicine 01/28/21 It Security Manager Relationship Specialty Start Date End Date Gregg Anton MD [address] [place] [address] PCP - General Family Medicine 01/28/21 It Security Manager Relationship Specialty Start Date End Date Gregg Anton MD [address] [place] [address] PCP - General Family Medicine 01/28/21 It Security Manager Relationship Specialty Start Date End Date Gregg Anton MD [address] [place] [address] PCP - General Family Medicine 01/28/21 It Security Manager Relationship Specialty Start Date End Date Gregg Anton MD [address] [place] [address] PCP - General Family Medicine 01/28/21 It Security Manager Relationship Specialty Start Date End Date Gregg Anton MD [address] [place] [address] PCP - General Family Medicine 01/28/21 It Security Manager Relationship Specialty Start Date End Date Gregg Anton MD [address] [place], [place] [address] PCP - General Family Medicine 01/28/21 It Security Manager Relationship Specialty Start Date End Date Gregg Anton MD [address] [place], [place] [address] PCP - General Family Medicine 01/28/21 It Security Manager Relationship Specialty Start Date End Date Gregg Anton MD [address] [place], [place] [address] PCP - General Family Medicine 01/28/21 It Security Manager Relationship Specialty Start Date End Date Gregg Anton MD [address] [facility] [place], [place] [phone] PCP - General Family Medicine 01/28/21 It Security Manager Relationship Specialty Start Date End Date Gregg Anton MD [address] [facility] [place], [place] [address] PCP - General Family Medicine 01/28/21 Team Status: Active Member Role Status Dates Dr. Gregg Anton MD Primary Care Provider Active Team Status: Inactive Member Role Status Dates Dr. Gregg Anton MD Primary Care Provider Active Start: February 16, 2025 End: February 16, 2025 Geraldo Barrera PAINTER SPRING, PAINTER SPRING-C Attending Provider Active Start: February 16, 2025 End: February 16, 2025 Geraldo Barrera PAINTER SPRING [employer]INTER [employer]-C Referring Provider Active Start: February 16, 2025 End: February 16, 2025 It Security Manager Relationship Specialty Start Date End Date Gregg Anton [address] [facility] [address] [place] [address] PCP - General 07/05/19 Lee Miller MD [address] [place] [address] Consulting Physician Hematology and Oncology 03/05/23 It Security Manager Relationship Specialty Start Date End Date Gregg Anton [address] [place] [address] PCP - General 07/05/19 Lee Miller MD [address] [place] [address] Consulting Physician Hematology and Oncology 03/05/23 Team Status: Active Member Role/Relationship Status Dates Dr. Gregg Anton MD Primary Care Provider Active Team Status: Inactive Member Role/Relationship Status Dates Dr. Gregg Anton MD Primary Care Provider Active Start: February 16, 2025 End: February 16, 2025 [facility] PA[facility], [employer]INTER [employer]-C Attending Provider Active Start: February 16, 2025 End: February 16, 2025 [facility] PAINTER [place]ING, PAINTER [place]-C Referring Provider Active Start: February 16, 2025 End: February 16, 2025 Team Status: Inactive Member Role/Relationship Status Dates Dr. Gregg Anton MD Primary Care Provider Active Start: April 28, 2025 End: April 28, 2025 Dr. Gregg Anton MD Attending Provider Active art: April 28, 2025 End: April 28, 2025 Dr. Gregg Anton MD Referring Provider Active St art: April 28, 2025 End: April 28, 2025 Team Status: Inactive Member Role/Relationship Status Dates Dr. Gregg Anton MD Primary Care Provider Active Start: May 11, 2025 End: May 11, 2025 Dr. Gregg Anton MD Attending Provider Active St art: May 11, 2025 End: May 11, 2025 Dr. Gregg Anton MD Referring Provider Active St art: May 11, 2025 End: May 11, 2025 Team Status: Active Member Role/Relationship Status Dates Dr. Gregg Anton MD Primary care physician Active Team Status: Inactive Member Role/Relationship Status Dates Dr. Gregg Anton MD Primary care physician Active Start: February 16, 2025 End: February 16, 2025 Geraldo Barrera PAINTER SPRING, PAINTER SPRING-C Attending physician Active Start: February 16, 2025 End: February 16, 2025 Geraldo Barrera PAINTER SPRING, PAINTER SPRING-C Referring Provider Active Start: February 16, 2025 End: February 16, 2025 Team Status: Inactive Member Role/Relationship Status Dates Dr. Gregg Anton MD Primary care physician Active Start: April 28, 2025 End: April 28, 2025 Dr. Gregg Anton MD Attending physician Active S tart: April 28, 2025 End: April 28, 2025 Dr. Gregg Anton MD Referring Provider Active St art: April 28, 2025 End: April 28, 2025 Team Status: Inactive Member Role/Relationship Status Dates Dr. Gregg Anton MD Primary care physician Active Start: May 11, 2025 End: May 11, 2025 Dr. Gregg Anton MD Attending physician Active S tart: May 11, 2025 End: May 11, 2025 Dr. Gregg Anton MD Referring Provider Active St art: May 11, 2025 End: May 11, 2025 Team Status: Inactive Member Role/Relationship Status Dates Dr. Gregg Anton MD Primary care physician Active Start: May 25, 2025 End: May 25, 2025 Dr. Gregg Anton MD Attending physician Active S tart: May 25, 2025 End: May 25, 2025 Dr. Gregg Anton MD Referring Provider Active St art: May 25, 2025 End: May 25, 2025 Team Status: Active Member Role/Relationship Status Dates Dr. Gregg Anton MD Primary care physician Active Start: May 25, 2025 Dr. Gregg Anton MD Referring Provider Active St art: May 25, 2025 Dr. Gregg Camara MD Attending physician Active Start: May 25, 2025 Team Status: Inactive Member Role/Relationship Status Dates Dr. Gregg Anton MD Primary care physician Active Start: April 28, 2025 End: April 28, 2025 Dr. Gregg Anton MD Attending physician Active S tart: April 28, 2025 End: April 28, 2025 Dr. Gregg Anton MD Referring Provider Active St art: April 28, 2025 End: April 28, 2025 Team Status: Inactive Member Role/Relationship Status Dates Dr. Gregg Anton MD Primary care physician Active Start: May 11, 2025 End: May 11, 2025 Dr. Gregg Anton MD Attending physician Active S tart: May 11, 2025 End: May 11, 2025 Dr. Gregg Anton MD Referring Provider Active St art: May 11, 2025 End: May 11, 2025 Team Status: Inactive Member Role/Relationship Status Dates Dr. Gregg Anton MD Primary care physician Active Start: May 25, 2025 End: May 25, 2025 Dr. Gregg Anton MD Attending physician Active S tart: May 25, 2025 End: May 25, 2025 Dr. Gregg Anton MD Referring Provider Active St art: May 25, 2025 End: May 25, 2025 Team Status: Active Member Role/Relationship Status Dates Dr. Gregg Anton MD Primary care physician Active Start: May 25, 2025 Dr. Gregg Anton MD Referring Provider Active St art: May 25, 2025 Dr. Gregg Camara MD Attending physician Active Start: May 25, 2025 Team Status: Inactive Member Role/Relationship Status Dates Dr. Gregg Anton MD Primary care physician Active Start: June 22, 2025 End: June 22, 2025 Dr. Gregg Anton MD Referring Provider Active St art: June 22, 2025 End: June 22, 2025 SANJUANITA Leonard Attending physician Active Sta rt: June 22, 2025 End: June 22, 2025 Goals (unrecognized section and content) Goals may be documented in a n alternate sectionGoals may be documented in an alternate sectionGoals may be documented in an alternate sectionGoals may be documented in an alternate sectionGoals may be documented in an alternate sectionGoals may be documented in an alternate sectionGoals may be documented in an alternate sectionGoals may be documented in an alternate sectionGoals may be documented in an alternate sectionGoals may be documented in an alternate sectionGoals may be documented in an alternate section FOR RECORDS PERTAINING TO PATIENTS WHO ARE OR HAVE BEEN ENROLLED IN A CHEMICAL DEPENDENCY/SUBSTANCEABUSE PROGRAM, SOME INFORMATION MAY BE OMITTED. This clinical summary was aggregated from multiple sources. Caution should be exercised in using it in the provision of clinical care. This summary normalizes information from multiple sources, and as a consequence, information in this document may materially change the coding, format and clinical context of patient data. In addition, data may be omitted in some cases. CLINICAL DECISIONS SHOULD BE BASED ON THE PRIMARY CLINICAL RECORDS. [facility]. provides no warranty or guarantee of the accuracy or completeness of information in this document.
[2025-09-04 22:14] LABS: Hematocrit 47.5 % (37-47); Hemoglobin 16.0 g/dL (12.0-15.0); Immature Granulocytes Count 0.050 X10^3/uL (0.0-0.0); Mean Corp Hgb Conc 33.7 g/dL (32-36); Mean Corpuscular Volume 91.3 fL (81-99); Mean Platelet Vol. 9.3 fl (6.2-12.0); NRBC Flagged by Analyzer 0 % (0-5); Platelet Count 225 K/mm3 (150-450); RBC Distribution Width CV 12.4 % (11.6-14.6); RBC Distribution Width SD 41.4 fl (35.1-43.9); Red Blood Count 5.20 M/mm3 (4.2-5.4); White Blood Count 14.3 K/mm3 (4.4-11.0)
[2025-09-04] MEDS: 0.9% Normal Saline (1000mL) 1,000 ML 999 ML IV (22:22)
[2025-09-04 22:23] VITALS: BMI 28.0
[2025-09-04 22:23] LABS: Prothrombin Time (Protime)PT. 13.4 SECONDS (11.7-14.9)
[2025-09-04 22:24] LABS: Partial Thromboplast Time 37.6 Seconds (24.1-36.2)
[2025-09-04 22:35] VITALS: O2SAT 92
--- NOTE | 2025-09-04 22:50 | CT_ITS ---
PROCEDURE: BRAIN/HEAD WITHOUT CONTRAST 09/05/2025 REASON FOR EXAM: TRAUMA TECHNIQUE: Procedure Code: CTBR Modality: CT Procedure: BRAIN/HEAD WITHOUT CONTRAST Coronal and Sagittal reconstruction series were provided. One or more dose reduction techniques were used (e.g., Automated exposure control, adjustment of the mA and/or kV according to patient size, use of iterative reconstruction technique. RADIATION DOSE SUMMARY: CTDI Vol 44.99 mGy DLP :846.73 mGycm COMPARISON: 08-Nov-2019 FINDINGS: Relatively accentuated bilateral cerebral periventricular deep white matter hypodensities suggesting hypoperfusion. Fernández-white matter differentiation is maintained. Normal CT appearance of the posterior fossa structures. No intracerebral or extra axial hemorrhage. No definite calvarial fractures. Unremarkable ventricular system. Asymmetry of the lateral ventricles, possibly developmental. Prominent extra-axial CSF spaces No midline shifts or deformity. The osseous structures in the skull base are unremarkable. The scanned paranasal sinuses are unremarkable. Vascular atheromatous calcifications. CT/Brain/Head without Contrast IMPRESSION: No intracerebral or extra axial hemorrhage. No acute cerebrovascular insult. If clinical symptoms persist, further evaluati on with MRI may be considered as clinically warranted. Bilateral cerebral mild microvascular ischemic changes. Reading Location[facility]
--- NOTE | 2025-09-04 22:50 | CT_ITS ---
PROCEDURE: SPINE CERVICAL WITHOUT CONTRAS 09/05/2025 REASON FOR EXAM: TRAUMA TECHNIQUE: Procedure Code: CTSPC Modality: CT Procedure: SPINE CERVICAL WITHOUT CONTRAS Coronal and Sagittal reconstruction series were provided. One or more dose reduction techniques were used (e.g., Automated exposure control, adjustment of the mA and/or kV according to patient size, use of iterative reconstruction technique. RADIATION DOSE SUMMARY: CTDI Vol 16.68 mGy DLP :323.70 mGycm COMPARISON: 09-Feb-2020 CR FINDINGS: Straightened cervical lordosis denoting myospasm. Mild C3 retrolisthesis. Mild C5 and C7 anterolithesis. The examined vertebral bodies show no structural collapse or posterior neural elements fractures. Intact atlanto-axial interval. Degenerative changes of the atlanto-axial articulation with related capsular calcifications. Cervical spondylodegenerative changes evident by marginal osteophytic lipping and multilevel subchondral sclerosis of the examined vertebral end plates with multilevel disc spaces narrowing with faint calcifications. Small calcifications related to T1 transverse processes. Multilevel degenerative unco-vertebral arthropathy with osteophytes formation seen encroaching upon the corresponding neural exit foramina. Multilevel degenerative facet arthropathy. Multilevel nuchal and anterior longitudinal ligament calcifications. Multilevel diffuse disc bulges with posterior osteophytes and annular calcifications indenting the theca and encroaching upon the related neural exit foramina. No paraspinal masses. Vascular atheromatous calcifications Bilateral upper lung lobes apical reticulations. CT/Spine Cervical without Contras IMPRESSION: Straightened cervical curve denoting myospasm. No vertebral fractures, structural collapse or acute dislocation. Cervical spondylodegenerative changes with multilevel uncovertebral and facet a rthropathy along with diffuse disc bulges inducing spinal canal and neural exit pathway compromise. Reading Location[facility]
[2025-09-04 22:57] LABS: AST(SGOT) 42 U/L (<=31); Alanine Aminotransfer ALT/SGPT 35 U/L (<=34); Albumin, Serum 4.1 g/dL (3.4-4.8); Alkaline Phosphatase 84 U/L (35-104); Anion Gap 15 (7-18); BUN 11 mg/dL (4-19); BUN/Creat Ratio 12.0 RATIO (10-20); Bilirubin, Direct 0.27 mg/dL (0.00-0.30); Calcium,Total 9.3 mg/dL (7.6-11.0); Carbon Dioxide 20.5 mmol/L (20.0-29.0); Chloride 106 mmol/L (96-106); Estimated Creatinine Clearance 58.17 ml/min (50-250); Globulin 2.7 g/dL (2.2-4.2); Glucose 220 mg/dL (70-99); Potassium 3.7 mmol/L (3.5-5.1)
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
--- NOTE | 2025-09-04 23:43 | CT_ITS ---
PROCEDURE: CT CHEST, ABD, PEL W/CONTRAST 09/04/2025 REASON FOR EXAM: [facility] TECHNIQUE: Chest, abdomen and pelvis CT with intravenous contrast. Coronal and Sagittal reconstruction series were provided. One or more dose reduction techniques were used (e.g., Automated exposure control, adjustment of the mA and/or kV according to patient size, use of iterative reconstruction technique. PATIENT PREPARATION: Per protocol ORAL CONTRAST TYPE: None. CONTRAST: Isovue-350 VOLUME: 100mL RADIATION DOSE SUMMARY: CTDlvol: 17.3 mGy DLP: 930 mGycm COMPARISON: CT scan on 09/22/2022. FINDINGS: Bilateral basilar atelectatic pulmonary changes. Bilateral basilar ground-glass densities, possibly representing pulmonary contusions, pulmonary congestion/alveolar edema and/or superimposed pneumonia. Prior hysterectomy. Fat containing right inguinal hernia without incarceration. Calcified atheromatous plaques of the aorta and iliac arteries. Prior lower lumbar laminectomies. Unchanged small sliding hiatal hernia. Normal enhancement of the main pulmonary artery and right and left pulmonary arteries. Normal enhancement of the bilateral peripheral pulmonary arteries. Mild atheromatous plaques of the thoracic aorta and visualized great vessels. There is no demonstrated aortic dissection. Normal heart and pericardium. Normal mediastinum. Normal hilar regions. Normal visualized trachea and bronchi. Normal pleura. Normal liver. Normal gallbladder and extrahepatic biliary system. Normal spleen. Normal pancreas. Normal bilateral adrenal glands. Normal size of the right kidney. There is no right renal mass. There are no right renal calculi. There is no right hydronephrosis. Normal visualized right ureter. Normal size of the left kidney. There is no left renal mass. There are no left renal calculi. There is no left hydronephrosis. Normal visualized left ureter. Normal remaining visualized stomach. Normal small intestine. Uncomplicated diverticulosis of the colon. The appendix is not visualized. There is no demonstrated peritoneal fluid. Mild calcified atheromatous plaques of the abdominal aorta. Normal inferior vena cava. Normal retroperitoneum. Normal urinary bladder. There is no pelvic mass lesion or lymphadenopathy. There is no pelvic fluid. CT/CT Chest, Abd, Pel w/Contrast IMPRESSION: Bilateral basilar atelectatic pulmonary changes. Bilateral basilar ground-glass densities, possibly representing pulmonary contu sions, pulmonary congestion/alveolar edema and/or superimposed pneumonia. Prior hysterectomy. Fat containing right inguinal hernia without incarceration. Calcified atheromatous plaques of the aorta and iliac arteries. Prior lower lumbar laminectomies. Unchanged small sliding hiatal hernia. Reading Location: [facility]
[2025-09-05] VITALS: BP 126/89; PULSE 123; RESP 18; O2SAT 94
[2025-09-05] MEDS: Orphenadrine 60 MG/2 ML Ampul 30 MG IV (00:25)
[2025-09-05 00:48] VITALS: PULSE 126; RESP 12; O2SAT 89
[2025-09-05 00:56] VITALS: O2SAT 86
[2025-09-05 01:00] VITALS: O2SAT 95
--- NOTE | 2025-09-05 01:12 | ED.RN ---
called radiology to f/u on chest ct results
[2025-09-05 02:47] VITALS: O2SAT 96
[2025-09-05 03:04] VITALS: BP 126/89; PULSE 126; RESP 12; TEMP 35.8; O2SAT 95
== END 2025-09-05 03:04 | disposition home or self-care (01) ==
PROVIDERS: Emergency Provider Emergency Medicine; PCP Family Medicine; Visit Provider Emergency Medicine
DX: M54.2 Cervicalgia (principal); E11.9 Type 2 diabetes mellitus without complications; Z79.4 Long term (current) use of insulin; R51.9 Headache, unspecified; V89.2XXA Person injured in unspecified motor-vehicle accident, traffic, initial encounter; M47.812 Spondylosis without myelopathy or radiculopathy, cervical region; M46.92 Unspecified inflammatory spondylopathy, cervical region; R91.8 Other nonspecific abnormal finding of lung field; E78.5 Hyperlipidemia, unspecified; I10 Essential (primary) hypertension; K58.9 Irritable bowel syndrome, unspecified; I34.1 Nonrheumatic mitral (valve) prolapse; K21.9 Gastro-esophageal reflux disease without esophagitis; G90.A Postural orthostatic tachycardia syndrome [POTS]; G47.33 Obstructive sleep apnea (adult) (pediatric); J45.909 Unspecified asthma, uncomplicated; Z85.3 Personal history of malignant neoplasm of breast; Z79.82 Long term (current) use of aspirin; Z79.899 Other long term (current) drug therapy
CPT/HCPCS: 70450; 71260; 72125; 74177; 80048; 80076; 85025; 85610; 85730; 93005; 96361; 96374; 96375; 99285; Q9967; A4216

== ENCOUNTER → 2025-09-04 | Outpatient (CLI) | payer MEDICARE, SELFPAY | END | disposition home or self-care (01) | LOC: PSN 12:04 | PROVIDERS: PCP Family Medicine; Referring Provider Student in an Organized Health Care Education/Training Program; Visit Provider Student in an Organized Health Care Education/Training Program | DX: R00.2 Palpitations (principal); R00.0 Tachycardia, unspecified | CPT/HCPCS: 93225; 93226 ==